=== PATIENT | female | born 1940 | race Caucasian/White ===

== ENCOUNTER 2018-06-01 16:12 | Inpatient (IN) ==
--- NOTE | 2018-06-01 16:30 | Emergency Department Note ---
Entered by Melanie Ramirez acting as a scribe for Hernan Moreira MD ED Provider Note CHIEF COMPLAINT: Fall HISTORY OF PRESENT ILLNESS: The patient is a 77 year old female who present to the Emergency Room following a fall that occurred at 1515 today. The patient reports that she was ambulating without her walker when she suddenly slipped and fell. She states that she has since had pain in her right henry and ankle, rating it a 2/10 at rest and 10/10 with movement. She denies injuring any other body part including her head, neck and back. She also denies any episodes of nausea or vomiting. The patient denies taking any medications prior to arrival. She notes that she last broke her right ankle on March 26 of last year. She denies any recent sickness. Pt denies LOC, headache, visual changes, neck pain, chest pain, breathing difficulties, nausea, vomiting, abdominal pain, back pain, other extremity pain , numbness, weakness, open wounds, active bleeding, or other complaints. REVIEW OF SYSTEMS: See HPI for pertinent positives and negatives. A total of ten systems were reviewed and were otherwise negative. PMHx/PSHx: neuropathy, parathryroidectomy, lumbar discectomy, cholecystectomy, HTN. SOCIAL HISTORY: Patient lives at home. Former smoker. PHYSICAL EXAM: GENERAL: Awake, alert, mildly umcomfortable appearing, no distress HEAD: Normocephalic, atraumatic. No post sign. No raccoon eyes. EYES: Normal conjunctiva. PERRL. EARS: External ears normal. Right TM normal. Left TM normal. NOSE: Atraumatic OROPHARYNX: Lips, tongue, and mucosa unremarkable. No erythema or exudate. NECK: No tracheal deviation or JVD. No posterior midline tenderness. No step offs noted. RESPIRATORY: CTA bilaterally. Breath sounds equal. No wheezes. No rhonchi. Normal respiratory effort. CARDIAC: Normal rate, normal rhythm. No murmurs. No rubs. ABDOMEN: Inspection reveals no abnormalities. Soft, non distended. No tenderness to palpation. No hernias. BACK: No midline step offs or tenderness to palpation. Unremarkable. PELVIS: Stable to rock. SKIN: Normal. LYMPH: No adenopathy. MUSCULOSKELETAL: Upper and left lower extremities are atraumatic. No hip tenderness. Mild tenderness to proximal tibia. Mild deformity swelling and bruising of the lower henry down to the ankle. Mild tenderness of the medial malleolus. Good cap refill, mild diminished sensation but she states that that is chronic. NEURO: GCS 15. Normal sensorium. No sensory or motor deficits noted. EMERGENCY DEPARTMENT COURSE: 1613: Past medical records reviewed. The patient was evaluated in room C3, and a complete history and physical examination were performed. 1707: The patient and her family state that she is not steady on her feet to be splinted and discharged with a walker. 1830: I reviewed the patient's case with Dr. Mandujano - Orthopedics. He requests medicine to admit the patient. 183: I reviewed the patient's case with MATTHEW Espinal - [facility]. She will evaluate the patient for further management. MEDICAL DECISION MAKING: Triage Nursing notes reviewed. The patient's presentation and history were concerning for a fall and leg pain. Etiologies such as soft tissue injury, fracture, dislocation, neurovascular compromise, compartment syndrome, as well as others were entertained. The patient was evaluated. She had an obvious deformity of the right leg. I did place her back in the DAVEY splint. The patient initially declined analgesia. X-ray imaging was performed and shows a spiral fracture of the distal tibia as well as the distal fibula. These are closed fractures. The patient had unremarkable laboratory studies. Her other diagnostics were unremarkable as well. A formal short leg posterior Ortho-Glass splint was performed. Consultation was made with Dr. Mandujano of orthopedics. He agreed with the splinting and will see the patient tomorrow. He has for medicine to admit the patient. I did consult with the [facility] service. The patient was then complaining of pain and was given morphine and Zofran. She was frequently reassessed. Patient and family were updated. The patient was admitted for further management. PROCEDURE: SPLINTING: Indication: Fracture The injured extremity was identified. The patient was prepped and measured for the placement of a posterior short leg orthoglass splint. Splint applied in the standard fashion over a layer of webril and secured using an elastic bandage. Set into a position of function. Normal neurovascular status after placement verified. The patient tolerated the procedure well and the care of the splint was discussed with the patient/family. No complications. IMPRESSION: Closed fracture of the distal tibia and fibula. PLAN: Admitted The scribe's documentation has been prepared under my direction and personally reviewed by me in its entirety. I confirm that the note above accurately reflects all work, treatment, procedures, and medical decision making performed by me. Impression & Plan Fracture of distal end of right tibia, Closed fracture of distal end of right fibula Past Med/Surg History Social History Current Living Situation: Family Current Living Situation Comment: lives with grandson and granddaughter Other Information That Helps Us Care for You: No Feels Safe at Home: Yes Safety Concerns: Feels Safe At This Time Smoking Status: Former smoker Do You Dip or Chew Tobacco: No Hx Alcohol Use: No Hx Substance Use: No Beliefs That Will Affect Care: None Preferred Language: [place]ib[place]ian Communication Ability: Effective Stereoplotter Operator Required: No Results & Data Vital Signs Vital Signs - 24 hr 06/01/18 16:21 06/01/18 18:01 06/01/18 19:58 Temperature 36.7 C Temperature Source Oral Sepsis Recent Fever Within 48 Hours No Sepsis New/Unexplained Change in Mental Status No Sepsis Action Taken by Nursing No Action Required Pulse Rate 82 79 Pulse Rate [Finger] 82 Pulse Rate [Left Apical] 78 86 Pulse Rhythm Regular Pulse Rhythm [Finger] Pulse Rhythm [Left Apical] Regular Regular Pulse Strength [Finger] Pulse Strength [Left Apical] Normal Normal Respiratory Rate 20 18 18 Respiratory Effort / Characteristics Non-Labored Spontaneous Non-Labored Spontaneous Respiratory Depth Normal Normal Respiratory Pattern Regular Blood Pressure 164/83 H Blood Pressure [Left Arm] Blood Pressure [Right Arm] 164/83 H 155/95 H 144/86 H Blood Pressure Mean 110 Blood Pressure Mean [Left Arm] Blood Pressure Mean [Right Arm] 110 115 105 Blood Pressure Position [Left Arm] Blood Pressure Position [Right Arm] Lying Lying Pulse Oximetry 95 93 98 Oxygen Delivery Method Room Air Room Air Room Air Oxygen Flow Rate 06/01/18 20:00 06/01/18 21:13 06/01/18 21:15 Temperature Temperature Source Sepsis Recent Fever Within 48 Hours Sepsis New/Unexplained Change in Mental Status Sepsis Action Taken by Nursing Pulse Rate Pulse Rate [Finger] Pulse Rate [Left Apical] 82 85 Pulse Rhythm Pulse Rhythm [Finger] Pulse Rhythm [Left Apical] Regular Regular Pulse Strength [Finger] Pulse Strength [Left Apical] Normal Normal Respiratory Rate 22 18 Respiratory Effort / Characteristics Non-Labored Spontaneous Respiratory Depth Normal Normal Respiratory Pattern Regular Blood Pressure Blood Pressure [Left Arm] Blood Pressure [Right Arm] 124/63 Blood Pressure Mean Blood Pressure Mean [Left Arm] Blood Pressure Mean [Right Arm] 83 Blood Pressure Position [Left Arm] Blood Pressure Position [Right Arm] Lying Pulse Oximetry 95 95 Oxygen Delivery Method Room Air Nasal Cannula Nasal Cannula Oxygen Flow Rate 2 06/01/18 21:20 06/01/18 23:45 Temperature 37.5 C 36.8 C Temperature Source Oral Oral Sepsis Recent Fever Within 48 Hours Sepsis New/Unexplained Change in Mental Status Sepsis Action Taken by Nursing Pulse Rate Pulse Rate [Finger] 87 76 Pulse Rate [Left Apical] Pulse Rhythm Pulse Rhythm [Finger] Regular Pulse Rhythm [Left Apical] Pulse Strength [Finger] Normal Pulse Strength [Left Apical] Respiratory Rate 16 16 Respiratory Effort / Characteristics Non-Labored Spontaneous Respiratory Depth Normal Respiratory Pattern Regular Blood Pressure Blood Pressure [Left Arm] 131/64 Blood Pressure [Right Arm] 147/72 H Blood Pressure Mean Blood Pressure Mean [Left Arm] 86 Blood Pressure Mean [Right Arm] 97 Blood Pressure Position [Left Arm] Lying Blood Pressure Position [Right Arm] Lying Pulse Oximetry 96 95 Oxygen Delivery Method Nasal Cannula Room Air Oxygen Flow Rate 2 Home Medications Current Medication List: was personally reviewed by me Laboratory Data Attestation: I reviewed the patient's lab results. Result diagrams: 06/01/18 17:40 06/01/18 17:40 Lab Results 06/01/18 06/01/18 06/01/18 Range/Units 17:40 17:40 17:40 WBC 10.25 (4.8-10.8) K/uL RBC 4.39 (4.2-5.4) M/uL Hgb 13.7 (12.0-16.0) g/dL Hct 41.4 (37-47) % MCV 94.3 (80-100) fL MCH 31.2 (25-34) pg MCHC 33.1 (32-36) g/dL RDW Std Deviation 44.5 (36.4-46.3) fL RDW Coeff of Didi 12.8 (11.5-14.5) % Plt Count 221 (130-400) K/uL MPV 9.9 (7.4-10.4) fL Immature Gran % (Auto) 0.4 % Neut % (Auto) 69.4 % Lymph % (Auto) 22.5 % [place] % (Auto) 4.9 % Eos % (Auto) 2.5 % Baso % (Auto) 0.3 % Immature Gran # (Auto) 0.04 H (0.00-0.02) K/uL Neut # (Auto) 7.11 H (1.4-6.5) K/uL Lymph # (Auto) 2.31 (1.2-3.4) K/uL [place] # (Auto) 0.50 (0.11-0.59) K/uL Eos # (Auto) 0.26 (0-0.5) K/uL Baso # (Auto) 0.03 (0-0.2) K/uL PT 10.4 (9.0-12.0) Seconds INR 1.0 (0.9-1.1) APTT 23.4 (21.0-31.0) Seconds PTT Ratio 0.9 Sodium 140 (136-145) mmol/L Potassium 3.5 (3.5-5.1) mmol/L Chloride 102 (98-107) mmol/L Carbon Dioxide 32 (21-32) mmol/L Anion Gap 7.0 (3-11) BUN 32 H (7-18) mg/dl Creatinine 1.12 (0.6-1.2) mg/dl Est Cr Clr Drug Dosing 44.0 ml/min Est GFR ( Amer) 54.9 Est GFR (Non-Af Amer) 47.3 BUN/Creatinine Ratio 28.6 H (10-20) Glucose 105 H (70-99) mg/dl Calcium 9.2 (8.5-10.1) mg/dl Magnesium 1.9 (1.8-2.4) mg/dl Total Bilirubin 0.4 (0.2-1) mg/dl AST 27 (15-37) U/L ALT 24 (12-78) U/L Alkaline Phosphatase 71 (45-117) U/L Total Protein 7.6 (6.4-8.2) gm/dl Albumin 3.7 (3.4-5.0) gm/dl Globulin 3.9 (2.5-4.0) gm/dl Albumin/Globulin Ratio 1.0 (0.9-2) Administered Medications Calcium Carbonate (Os-Ten 500) 1,250 mg PO BID MARILY Stop: 07/01/18 21:35 Last Admin: 06/01/18 22:28 Dose: 1,250 mg Gabapentin (Neurontin) 600 mg PO QID MARILY Stop: 07/01/18 21:35 Last Admin: 06/01/18 22:28 Dose: 600 mg Lactated Ringer's (Lr) 1,000 mls @ 50 mls/hr IV .Q20H MARILY Stop: 07/02/18 00:00 Last Admin: 06/01/18 23:45 Dose: 50 mls/hr Oxycodone/Acetaminophen (Percocet 5mg/325mg) 1 tab PO Q4H PRN PRN Reason: Pain Stop: 06/15/18 21:35 Last Admin: 06/01/18 23:52 Dose: 1 tab Pantoprazole Sodium (Protonix) 40 mg PO BID MARILY Stop: 07/01/18 21:35 Last Admin: 06/01/18 22:28 Dose: 40 mg Simvastatin (Zocor) 40 mg PO PM MARILY Stop: 07/01/18 21:35 Last Admin: 06/01/18 22:28 Dose: 40 mg Discontinued Medications Sodium Chloride (Nss 1000ml) 1,000 mls @ 125 mls/hr IV .Q8H STA Stop: 06/02/18 01:14 Last Infusion: 06/01/18 22:04 Dose: 0 mls/hr Admin: 06/01/18 18:01 Dose: 125 mls/hr Morphine Sulfate (Morphine Sulfate) 4 mg IV NOW STA Stop: 06/01/18 20:18 Last Admin: 06/01/18 20:52 Dose: 4 mg Ondansetron HCl (Zofran) 4 mg IV NOW STA Stop: 06/01/18 20:18 Last Admin: 06/01/18 20:52 Dose: 4 mg Imaging Data Radiologist's Impression: Radiology results as stated below per my review and the radiologist's interpretation: RIGHT TIBIA AND FIBULA 2 VIEWS; RIGHT ANKLE 3 VIEWS CLINICAL HISTORY: Fall with right leg injury. FINDINGS: AP and crosstable lateral views of the right tibia and fibula with 3 additional views of the right ankle are obtained. No prior studies are available for comparison at the time of dictation. The skeletal structures are osteopenic. There is a nondistracted spiral fracture through the proximal fibular neck. There is also a spiral fracture of the distal fibula through the lateral malleolus. There is a complex spiral fracture through the distal tibial metadiaphysis. There is posterior distraction of the distal fragments by up to 7 mm, as well as lateral distraction of the distal fragments by up to 5 mm. Fracture does not appear to reach the articular surface. The ankle joint is in near-anatomic alignment. There is a tiny avulsion fracture seen along the inferior aspect of the medial malleolus. The knee joint is grossly maintained comminuted and arthritic change and chondrocalcinosis within the lateral compartment. The proximal tibia is preserved. There is an ankle joint effusion. Soft tissue edema is noted in the right lower extremity. Atherosclerotic calcification is observed in the regional arteries. A dorsal calcaneal enthesophyte is observed. IMPRESSION: 1. There is a comminuted and distracted spiral fracture of the distal tibial metadiaphysis as above. 2. There are fractures of the proximal fibular neck as well as the lateral malleolus. 3. There is a small avulsion fracture seen along the inferior aspect of the medial malleolus. Electronically signed by: Usama Jang M.D. 06/01/2018 4:45 PM ECG Data Attestation: I personally reviewed and interpreted this ECG as follows: Indication: other (fall) Rate (beats per minute): 74 Rhythm: normal sinus Findings: no PAC, no PVC, no ST depression and no ST elevation Blood Pressure Blood Pressure Findings: Elevated blood pressure Blood Pressure Disposition: further management by hospitalist Discharge Plan Visit Data *Final* Discharge Date/Time: 06/01/18 21:15 Chief Complaint: Fall Stated Complaint: FALL, R HENRY PAIN ED Provider: Hernan Moreira Discharge Problem: Fracture of distal end of right tibia, Closed fracture of distal end of right fibula Patient Disposition: Admitted As Inpatient Discharge Instructions Interventions: ED Discharge Assessment Last Done: 06/01/18 21:15 The scribe's documentation has been prepared under my direction and personally reviewed by me in its entirety. I confirm that the note above accurately reflects all work, treatment, procedures, and medical decision making performed by me.
--- NOTE | 2018-06-01 16:47 | XRay Report ---
RIGHT TIBIA AND FIBULA 2 VIEWS; RIGHT ANKLE 3 VIEWS CLINICAL HISTORY: Fall with right leg injury. FINDINGS: AP and crosstable lateral views of the right tibia and fibula with 3 additional views of th e right ankle are obtained. No prior studies are available for comparison at the time of dictation. T he skeletal structures are osteopenic. There is a nondistracted spiral fracture through the proximal fibular neck. There is also a spiral fracture of the distal fibula through the lateral malleolus. The re is a complex spiral fracture through the distal tibial metadiaphysis. There is posterior distracti on of the distal fragments by up to 7 mm, as well as lateral distraction of the distal fragments by u p to 5 mm. Fracture does not appear to reach the articular surface. The ankle joint is in near-anatom ic alignment. There is a tiny avulsion fracture seen along the inferior aspect of the medial malleolu s. The knee joint is grossly maintained comminuted and arthritic change and chondrocalcinosis within the lateral compartment. The proximal tibia is preserved. There is an ankle joint effusion. Soft tiss ue edema is noted in the right lower extremity. Atherosclerotic calcification is observed in the melody onal arteries. A dorsal calcaneal enthesophyte is observed. IMPRESSION: 1. There is a comminuted and distracted spiral fracture of the distal tibial metadiaphysis as above. 2. There are fractures of the proximal fibular neck as well as the lateral malleolus. 3. There is a small avulsion fracture seen along the inferior aspect of the medial malleolus. Electronically signed by: Usama Jang M.D. 06/01/2018 4:45 PM
[2018-06-01] MEDS ORDERED: SODIUM CHLORIDE 0.9% 1000ML 1,000 ML IV STA (17:15)
[2018-06-01 17:59] LABS: Basophils # (auto) 0.03 K/uL (0-0.2); Basophils % (auto) 0.3 %; Eosinophils # (auto) 0.26 K/uL (0-0.5); Eosinophils % (auto) 2.5 %; Hematocrit (blood only) 41.4 % (37-47); Hemoglobin 13.7 g/dL (12.0-16.0); Immature Granulocytes # (auto) 0.04 K/uL (0.00-0.02); Immature Granulocytes % (auto) 0.4 %; Lymphocytes # (auto) 2.31 K/uL (1.2-3.4); Lymphocytes % (auto) 22.5 %; Mean Corpuscular Hgb Conc 33.1 g/dL (32-36); Mean Corpuscular Volume 94.3 fL (80-100); Mean Platelet Volume 9.9 fL (7.4-10.4); Monocytes % (auto) 4.9 %; Neutrophils # (auto) 7.11 K/uL (1.4-6.5); Neutrophils % (auto) 69.4 %; Platelet Count 221 K/uL (130-400); RDW Coefficient of Variation 12.8 % (11.5-14.5); RDW Standard Deviation 44.5 fL (36.4-46.3); Red Blood Count 4.39 M/uL (4.2-5.4); White Blood Count 10.25 K/uL (4.8-10.8)
[2018-06-01 18:11] LABS: Partial Thromboplastin Ratio 0.9; Partial Thromboplastin Time 23.4 Seconds (21.0-31.0); Prothrombin Time 10.4 Seconds (9.0-12.0)
[2018-06-01 18:38] LABS: Albumin Level 3.7 gm/dl (3.4-5.0); BUN Creatinine Ratio 28.6 (10-20); Calcium 9.2 mg/dl (8.5-10.1); Est GFR (African American) 54.9; Est GFR (Non-African American) 47.3; Potassium 3.5 mmol/L (3.5-5.1)
[2018-06-01 18:41] LABS: Bilirubin,Total 0.4 mg/dl (0.2-1); Globulin 3.9 gm/dl (2.5-4.0); Total Protein 7.6 gm/dl (6.4-8.2)
[2018-06-01 19:45] LABS: Magnesium 1.9 mg/dl (1.8-2.4)
[2018-06-01] MEDS ORDERED: MoRPHine SULFATE 4 MG/ML 1 ML CARP\\VIAL IV STA (20:17)
[2018-06-01] MEDS ORDERED: ONDANSETRON INJ 2 MG/ML 2 ML VIAL IV STA (20:17)
--- NOTE | 2018-06-01 20:33 | History & Physical Report ---
Date of Service June 01, 2018 Assessment & Plan (1) Fracture of distal end of right tibia: hx R distal fibula/malleolar fracture from 03/2018 Ambulatory dysfunction hx PAD/LE neuropathy as per records hypertension, stable hyperparathyroidism status post parathyroidectomy past tobacco abuse [facility] Orthopedics consult RE right tibial fracture (ER provider already in touch with Dr. Mandujano; possible surgery in a.m as per conversation.) No medical contraindication to contemplated Orthopedic procedure. DVT prophylaxis. Recommend pharmacologic Lovenox 30 mg SQ daily once bleeding risk is deemed to be minimal and negligible pending Orthopedics eval. SCDs contraindicated with history of LE PAD. Full code History of Present Illness Chief Complaint: Fall, right leg pain Primary Care Provider: Hernan Fernández History obtained from patient, family, and records. Medical history significant for hypertension, hyperlipidemia, PAD, neuropathy, hyperparathyroidism status post parathyroidectomy, GERD, past tobacco abuse. 2 months ago, patient sustained right ankle injury after a fall. Outpatient x- rays showed Green C fibular fracture. Fracture boot recommended by [facility] Orthopedics/Sports Medicine. Patient scheduled for follow-up x-ray this month. Patient ambulated without her walker in the afternoon causing her to slip and fall down. Subsequent pain noted on the right henry/ankle. Deformity noted. 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 Functionality : Usual shortness of breath on exertion on descending a flight of stairs Allergies Allergy/AdvReac Type Severity Reaction Status Date / Time No Known Allergies Allergy Verified 05/11/18 11:20 Home Medications Home Medications Medication Instructions Recorded Confirmed Type aspirin [Aspirin Low Dose] 81 mg PO QAM 05/03/18 06/01/18 History calcium carbonate 500 mg PO BID 05/03/18 06/01/18 History gabapentin 600 mg PO QID 05/03/18 06/01/18 History losartan 100 mg PO QAM 05/03/18 06/01/18 History magnesium oxide 250 mg PO QAM 05/03/18 06/01/18 History multivitamin 1 tab PO QAM 05/03/18 06/01/18 History omeprazole 20 mg PO BID 05/03/18 06/01/18 History simvastatin 40 mg PO PM 05/03/18 06/01/18 History baclofen 10 mg PO TID PRN 06/01/18 06/01/18 History calcitriol [Rocaltrol] 1 mcg PO QAM 06/01/18 06/01/18 History dorzolamide-timolol [Cosopt] 0 drp OPHTHALMIC (EYE) UD 06/01/18 06/01/18 History duloxetine [Cymbalta] 60 mg PO DAILY 06/01/18 06/01/18 History ibuprofen 400 mg PO QID PRN 06/01/18 06/01/18 History indapamide 2.5 mg PO DAILY 06/01/18 06/01/18 History latanoprost [Xalatan] 0 drp OPHTHALMIC (EYE) UD 06/01/18 06/01/18 History Past Med/Surg History Social History marital status: / Current Living Situation: Family Current Living Situation Comment: lives with grandson and granddaughter Other Information That Helps Us Care for You: No Feels Safe at Home: Yes Safety Concerns: Feels Safe At This Time Smoking Status: Former smoker Do You Dip or Chew Tobacco: No Hx Alcohol Use: No Hx Substance Use: No Beliefs That Will Affect Care: None Communication Ability: Effective Review of Systems As per HPI, all 10 systems reviewed, all other ROS negative Physical Exam 2 Vital Signs (Past 24 Hours): Last Vital Signs Temp 36.7 C 06/01/18 16:21 Pulse 86 06/01/18 19:58 Resp 18 06/01/18 19:58 BP 144/86 H 06/01/18 19:58 Pulse Ox 98 06/01/18 19:58 Physical Exam: GENERAL: Comfortable, obese, no respiratory distress SKIN: Normal color, warm HEENT: Bespectacled, pink palpebral conjunctivae, no ptosis, dry buccal mucosa NECK : Supple, short, no tenderness CHEST : CTA, no tenderness HEART : RRR, no obvious murmurs ABDOMEN: Some distention, nontender EXTREMITIES : RLE bandage/immobilizer, no other conspicuous deformities noted NEUROLOGIC : Coherent, no facial asymmetry, no other gross focality Results & Data Laboratory Results Laboratory Results WBC 10.25 K/uL (4.8-10.8) 06/01/18 17:40 RBC 4.39 M/uL (4.2-5.4) 06/01/18 17:40 Hgb 13.7 g/dL (12.0-16.0) 06/01/18 17:40 Hct 41.4 % (37-47) 06/01/18 17:40 MCV 94.3 fL (80-100) 06/01/18 17:40 MCH 31.2 pg (25-34) 06/01/18 17:40 MCHC 33.1 g/dL (32-36) 06/01/18 17:40 RDW Std Deviation 44.5 fL (36.4-46.3) 06/01/18 17:40 RDW Coeff of Didi 12.8 % (11.5-14.5) 06/01/18 17:40 Plt Count 221 K/uL (130-400) 06/01/18 17:40 MPV 9.9 fL (7.4-10.4) 06/01/18 17:40 Immature Gran % (Auto) 0.4 % 06/01/18 17:40 Neut % (Auto) 69.4 % 06/01/18 17:40 Lymph % (Auto) 22.5 % 06/01/18 17:40 [place] % (Auto) 4.9 % 06/01/18 17:40 Eos % (Auto) 2.5 % 06/01/18 17:40 Baso % (Auto) 0.3 % 06/01/18 17:40 Immature Gran # (Auto) 0.04 K/uL (0.00-0.02) H 06/01/18 17:40 Neut # (Auto) 7.11 K/uL (1.4-6.5) H 06/01/18 17:40 Lymph # (Auto) 2.31 K/uL (1.2-3.4) 06/01/18 17:40 [place] # (Auto) 0.50 K/uL (0.11-0.59) 06/01/18 17:40 Eos # (Auto) 0.26 K/uL (0-0.5) 06/01/18 17:40 Baso # (Auto) 0.03 K/uL (0-0.2) 06/01/18 17:40 PT 10.4 Seconds (9.0-12.0) 06/01/18 17:40 INR 1.0 (0.9-1.1) 06/01/18 17:40 APTT 23.4 Seconds (21.0-31.0) 06/01/18 17:40 PTT Ratio 0.9 06/01/18 17:40 Sodium 140 mmol/L (136-145) 06/01/18 17:40 Potassium 3.5 mmol/L (3.5-5.1) 06/01/18 17:40 Chloride 102 mmol/L (98-107) 06/01/18 17:40 Carbon Dioxide 32 mmol/L (21-32) 06/01/18 17:40 Anion Gap 7.0 (3-11) 06/01/18 17:40 BUN 32 mg/dl (7-18) H 06/01/18 17:40 Creatinine 1.12 mg/dl (0.6-1.2) 06/01/18 17:40 Est Cr Clr Drug Dosing 44.0 ml/min 06/01/18 17:40 Est GFR ( Amer) 54.9 06/01/18 17:40 Est GFR (Non-Af Amer) 47.3 06/01/18 17:40 BUN/Creatinine Ratio 28.6 (10-20) H 06/01/18 17:40 Glucose 105 mg/dl (70-99) H 06/01/18 17:40 Calcium 9.2 mg/dl (8.5-10.1) 06/01/18 17:40 Magnesium 1.9 mg/dl (1.8-2.4) 06/01/18 17:40 Total Bilirubin 0.4 mg/dl (0.2-1) 06/01/18 17:40 AST 27 U/L (15-37) 06/01/18 17:40 ALT 24 U/L (12-78) 06/01/18 17:40 Alkaline Phosphatase 71 U/L (45-117) 06/01/18 17:40 Total Protein 7.6 gm/dl (6.4-8.2) 06/01/18 17:40 Albumin 3.7 gm/dl (3.4-5.0) 06/01/18 17:40 Globulin 3.9 gm/dl (2.5-4.0) 06/01/18 17:40 Albumin/Globulin Ratio 1.0 (0.9-2) 06/01/18 17:40 Diagnostic Findings Chest x-ray as per my interpretation no acute pathology EKG as per my interpretation : Rate 75, NSR, low voltage _ (1) Fracture of distal end of right tibia Encounter type: initial encounter Fracture alignment: Fracture healing: Fracture morphology: unspecified fracture morphology Fracture type: closed Open fracture type: Qualified Code(s): S82.301A - Unspecified fracture of lower end of right tibia, initial encounter for closed fracture
[2018-06-01] MEDS ORDERED: ACETAMINOPHEN 325 MG TAB PO PRN (21:36)
[2018-06-01] MEDS ORDERED: BACLOFEN 10 MG TAB PO PRN (21:36)
[2018-06-01] MEDS ORDERED: PROCHLORPERAZINE 5 MG in SYRINGE 4 ML IV PRN (21:36)
[2018-06-01] MEDS: PANTOprazole 40 MG TAB PO SCH (22:28)
[2018-06-01] MEDS: SIMVASTATIN 40 MG TAB PO SCH (22:28)
[2018-06-01] MEDS: GABAPENTIN 300 MG CAP PO SCH (22:28)
[2018-06-01] MEDS: CALCIUM CARBONATE 1250MG TAB PO SCH (22:28)
[2018-06-01] MEDS: LACTATED RINGER'S 1,000 ML IV SCH (23:45)
[2018-06-01] MEDS: OXYCODONE/ACETAMINOPHEN 5mg/325mg TAB PO PRN (23:52)
[2018-06-02] MEDS: OXYCODONE/ACETAMINOPHEN 5mg/325mg TAB PO PRN ×3 (06:27→16:15)
--- NOTE | 2018-06-02 07:22 | XRay Report ---
XR chest 1V portable HISTORY: 77 years-old Female preop, hx tobacco abuse preoperative exam. No acute chest complaints COMPARISON: Chest radiograph 08/15/2009 TECHNIQUE: Portable AP view of the chest FINDINGS: Cardiomediastinal and hilar silhouettes are within normal limits. Calcification the thoracic aortic a rch. Unchanged mild left hemidiaphragmatic elevation. No pneumothorax, large pleural effusion or over t pulmonary edema. Subsegmental left basilar opacities suggest atelectasis or scarring. Chronic appea ring bilateral anterior rib fractures. Degenerative changes of the shoulders and spine. IMPRESSION: No acute process. The above report was generated using voice recognition software. It may contain grammatical, syntax o r spelling errors. Electronically signed by: Brandon Fraire M.D. 06/02/2018 7:21 AM
[2018-06-02] MEDS: PANTOprazole 40 MG TAB PO SCH ×2 (08:32→20:08)
[2018-06-02] MEDS: LOSARTAN POTASSIUM 50 MG TAB PO SCH (08:32)
[2018-06-02] MEDS: MULTIVITAMIN TAB PO SCH (08:32)
[2018-06-02] MEDS: CALCIUM CARBONATE 1250MG TAB PO SCH ×2 (08:32→20:08)
[2018-06-02] MEDS: GABAPENTIN 300 MG CAP PO SCH ×4 (08:32→20:08)
[2018-06-02] MEDS: CALCITRIOL 0.25 MCG CAPSULE PO SCH (08:32)
[2018-06-02] MEDS: ASPIRIN 81 MG ECTAB PO SCH (08:32)
[2018-06-02] MEDS: DULOXETINE HCL 60 MG CAP PO SCH (08:32)
--- NOTE | 2018-06-02 15:37 | Hospitalist Progress Note ---
Date of Service June 02, 2018 Assessment & Plan (1) Fracture of distal end of right tibia: Secondary to mechanical fall History of R distal fibula/malleolar fracture from 03/2018 Appreciate orthopedic input and recommendation Plan for conservative approach PT and OT have been requested Ambulatory dysfunction hx PAD/LE neuropathy as per records Likely to need rehab Hypertension, stable Continue current medications Hyperparathyroidism status post pParathyroidectomy No acute left abnormal past tobacco abuse DVT prophylaxis. Recommend pharmacologic Lovenox 30 mg SQ daily once bleeding risk is deemed to be minimal and negligible pending Orthopedics eval. SCDs contraindicated with history of LE PAD. Full code Subjective Medical history significant for hypertension, hyperlipidemia, PAD, neuropathy, hyperparathyroidism status post parathyroidectomy, GERD, past tobacco abuse. She was admitted with mechanical fall and fracture of the right fibula. 06/02 The patient was seen and examined in medical floor She complains of pain in the right leg Denies any other symptoms She did not have surgery as per Ortho We will get PT OT evaluation Physical Exam 2 Vital Signs (Past 24 Hours): Last Vital Signs Temp 36.8 C 06/02/18 07:32 Pulse 90 06/02/18 08:27 Resp 19 06/02/18 07:32 BP 105/62 06/02/18 08:27 Pulse Ox 97 06/02/18 07:32 Physical Exam: Short CBC 06/01/18 Range/Units 17:40 WBC 10.25 (4.8-10.8) K/uL Hgb 13.7 (12.0-16.0) g/dL Hct 41.4 (37-47) % Plt Count 221 (130-400) K/uL BMP 06/01/18 17:40 Sodium 140 Potassium 3.5 Chloride 102 Carbon Dioxide 32 BUN 32 H Creatinine 1.12 Glucose 105 H Calcium 9.2 Liver Function 06/01/18 Range/Units 17:40 Total Bilirubin 0.4 (0.2-1) mg/dl AST 27 (15-37) U/L ALT 24 (12-78) U/L Alkaline Phosphata se 71 (45-117) U/L Albumin 3.7 (3.4-5.0) gm/dl Constitutional: WD/WN, vitals as above Eyes: PERRL, conjunctivae normal, anicteric sclerae ENMT: external ear and nose normal, oropharynx normal Neck: trachea midline, no thyromegaly Respiratory: normal respiratory effort, lungs clear to auscultation Cardiovascular: Rate/Rhythm: regular rate and regular rhythm Heart Sounds: normal S1 and normal S2 Gastrointestinal (Abdomen): Inspection/Auscultation: abdomen normal to inspection and normal bowel sounds Percussion/Palpation: abdomen soft Musculoskeletal: Ankle: + ankle abnormal to inspection (Left lower leg is bandaged) Neurologic: Alert, awake and oriented x3 Results & Data Laboratory Results Short CBC 06/01/18 Range/Units 17:40 WBC 10.25 (4.8-10.8) K/uL Hgb 13.7 (12.0-16.0) g/dL Hct 41.4 (37-47) % Plt Count 221 (130-400) K/uL BMP 06/01/18 17:40 Sodium 140 Potassium 3.5 Chloride 102 Carbon Dioxide 32 BUN 32 H Creatinine 1.12 Glucose 105 H Calcium 9.2 Liver Function 06/01/18 Range/Units 17:40 Total Bilirubin 0.4 (0.2-1) mg/dl AST 27 (15-37) U/L ALT 24 (12-78) U/L Alkaline Phosphatase 71 (45-117) U/L Albumin 3.7 (3.4-5.0) gm/dl Medications Administered Current Inpatient Medications Acetaminophen (Tylenol) 650 mg PO Q4H PRN PRN Reason: pain/fever Stop: 07/01/18 21:35 Aspirin (Ecotrin Ectab) 81 mg PO QAM [facility] Stop: 07/02/18 08:59 Last Admin: 06/02/18 08:32 Dose: 81 mg Baclofen (Lioresal) 10 mg PO TID PRN PRN Reason: Muscle Spasm Stop: 07/01/18 21:35 Calcitriol (Racaltrol) 1 mcg PO QAM [facility] Stop: 07/02/18 08:59 Last Admin: 06/02/18 08:32 Dose: 1 mcg Calcium Carbonate (Os-Ten 500) 1,250 mg PO BID [facility] Stop: 07/01/18 21:35 Last Admin: 06/02/18 08:32 Dose: 1,250 mg Duloxetine HCl (Cymbalta) 60 mg PO DAILY [facility] Stop: 07/02/18 08:59 Last Admin: 06/02/18 08:32 Dose: 60 mg Gabapentin (Neurontin) 600 mg PO QID [facility] Stop: 07/01/18 21:35 Last Admin: 06/02/18 13:10 Dose: 600 mg Lactated Ringer's (Lr) 1,000 mls @ 50 mls/hr IV .Q20H [facility] Stop: 07/02/18 00:00 Last Admin: 06/01/18 23:45 Dose: 50 mls/hr Prochlorperazine 5 mg/ Syringe 5 mls @ 5 mls/min IV Q6H PRN PRN Reason: Nausea And Vomiting Stop: 07/01/18 21:35 Losartan Potassium (Cozaar) 100 mg PO QAM [facility] Stop: 07/02/18 08:59 Last Admin: 06/02/18 08:32 Dose: 100 mg Morphine Sulfate (Morphine Sulfate) 4 mg IV Q4H PRN PRN Reason: Pain Stop: 06/15/18 21:35 Multivitamins (Multivitamin Tab) 1 tab PO QAM [facility] Stop: 07/02/18 08:59 Last Admin: 06/02/18 08:32 Dose: 1 tab Oxycodone/Acetaminophen (Percocet 5mg/325mg) 1 tab PO Q4H PRN PRN Reason: Pain Stop: 06/15/18 21:35 Last Admin: 06/02/18 10:48 Dose: 1 tab Pantoprazole Sodium (Protonix) 40 mg PO BID [facility] Stop: 07/01/18 21:35 Last Admin: 06/02/18 08:32 Dose: 40 mg Simvastatin (Zocor) 40 mg PO PM [facility] Stop: 07/01/18 21:35 Last Admin: 06/01/18 22:28 Dose: 40 mg _ (1) Fracture of distal end of right tibia Encounter type: initial encounter Fracture alignment: Fracture healing: Fracture morphology: unspecified fracture morphology Fracture type: closed Open fracture type: Qualified Code(s): S82.301A - Unspecified fracture of lower end of right tibia, initial encounter for closed fracture
--- NOTE | 2018-06-02 16:40 | Consultation Report ---
DATE OF CONSULTATION: 06/02/2018 ORTHOPEDIC CONSULTATION CHIEF COMPLAINT: Right leg injury. HISTORY OF PRESENT ILLNESS: The patient is a 77-year-old female who is known to me from treating her for a previous fracture in the past. She has a history of a relatively recent ankle fracture treated apparently at [facility] about 2 months ago. She says she just got out of the boot about 2 weeks or so ago. Yesterday, she was in her house walking without any boot or support and fell and broke her henry. Does not exactly sure how this happened or what happened. No other injuries. She was brought to the Emergency Room. X-rays revealed a distal tibia fracture. She has been admitted to medicine service and we have been consulted. She denies any other injuries. No head injury, no loss of consciousness, no neck pain. PAST MEDICAL HISTORY: Includes: 1. Hypertension. 2. Elevated cholesterol. 3. Unspecified neuropathy. 4. Hyperparathyroidism. 5. Gastroesophageal reflux disease. The remainder of the past medical history as per the admission H and P. OBJECTIVE: VITAL SIGNS: Temperature 36.8. Vital signs stable. PHYSICAL EXAMINATION: GENERAL: Reveals a pleasant elderly female. She is lying in bed, looks pretty comfortable. She complains only pain in the right leg. EXTREMITIES: Examination of the right leg reveals a short leg posterior splint to be in place. With the splint removed, she does have a well-aligned the leg. She does have bruising and some moderate swelling around the distal tibia area. She can flex and extend her toes appropriately. Compartments are soft. She is neurologically intact. X-RAYS: X-rays of the right tibia and fibula and ankle were reviewed. It shows a spiral distal tibia fracture with a proximal fibula fracture. She has got old healing Green B ankle fracture. There is minimal displacement of the tibia fracture. It is just a slight rotational injury. The ankle mortise is well maintained. ASSESSMENT: A 77-year-old female with multiple medical comorbidities with a minimally displaced spiral distal tibia fracture with a proximal fibula fracture about 2 months out from a previous Green B ankle fracture. PLAN: We discussed treatment. Certainly, at this time, they can be treated nonoperatively. We are going to put her in a short-leg cast. She can weight bear as tolerated. She will need to be in this cast for probably 2-3 months. The first 2 weeks is going to be pretty painful weightbearing, but she can weightbear as tolerated. We will get her a cast shoe. We need to see her back in 2-3 weeks for repeat x-ray. We will write her for therapy. Once again, she can weight bear as tolerated in the cast. Any orthopedic questions can be directed at [phone]. She should obviously have appropriate DVT prophylaxis and we would recommend TEDs, SCDs, and aspirin twice a day.
[2018-06-02] MEDS: MoRPHine SULFATE 4 MG/ML 1 ML CARP\\VIAL IV PRN (17:35)
[2018-06-02] MEDS: LACTATED RINGER'S 1,000 ML IV SCH (18:10)
[2018-06-02] MEDS: SIMVASTATIN 40 MG TAB PO SCH (20:08)
[2018-06-03] MEDS: MoRPHine SULFATE 4 MG/ML 1 ML CARP\\VIAL IV PRN ×2 (00:45→07:24)
--- NOTE | 2018-06-03 08:18 | Progress Note ---
DATE: 06/03/2018 SUBJECTIVE: A 77-year-old white female admitted with a right distal tib-fib fracture. We put her in a cast yesterday. She is doing okay. Some pain, but seems manageable. No new complaints. OBJECTIVE: VITAL SIGNS: Temperature 37.3. Vital signs stable. GENERAL: Examination of the right leg reveals the short leg cast in good position. Leg looks well aligned. She can dorsiflex and plantarflex her foot appropriately. She is neurologically intact. ASSESSMENT: A 77-year-old white female with a right distal tib-fib fracture. She is in a cast. She is doing reasonably well. It is going to be pretty sore for the first couple weeks. PLAN: 1. DVT prophylaxis including thigh-high TEDs, SCDs, and would recommend baby aspirin twice a day. 2. PT/OT. She can weightbear on this right leg. She needs a cast shoe. It certainly is going to be difficult for her for the first 2 weeks just related to pain. 3. Medical management as per the medicine service. 4. Disposition: She is orthopedically acceptable for discharge any time. She does need a cast shoe for the bottom of this foot. I need to see her back in about 2 weeks. Any orthopedic questions can be directed at [phone].
[2018-06-03] MEDS: LOSARTAN POTASSIUM 50 MG TAB PO SCH (09:04)
[2018-06-03] MEDS: PANTOprazole 40 MG TAB PO SCH ×2 (09:05→20:18)
[2018-06-03] MEDS: MULTIVITAMIN TAB PO SCH (09:05)
[2018-06-03] MEDS: GABAPENTIN 300 MG CAP PO SCH ×4 (09:08→20:17)
[2018-06-03] MEDS: ASPIRIN 81 MG ECTAB PO SCH (09:08)
[2018-06-03] MEDS: CALCIUM CARBONATE 1250MG TAB PO SCH ×2 (09:08→20:18)
[2018-06-03] MEDS: DULOXETINE HCL 60 MG CAP PO SCH (09:08)
[2018-06-03] MEDS: CALCITRIOL 0.25 MCG CAPSULE PO SCH (09:09)
--- NOTE | 2018-06-03 10:07 | XRay Report ---
XR chest 1V portable HISTORY: Cough. R/O Pneumonia COMPARISON: Chest 06/02/2018. Chest 08/15/2009. FINDINGS: No pneumothorax. No pleural effusions. The heart is normal in size. Mild elevation of the l eft hemidiaphragm. Left basilar densities are noted. Right lung is clear. IMPRESSION: Left basilar linear densities with mild elevation of the left hemidiaphragm. This favors atelectasis. However, a pneumonia could also have a similar appearance. Electronically signed by: Dakota Cueva M.D. 06/03/2018 10:05 AM
[2018-06-03 10:19] LABS: Basophils # (auto) 0.02 K/uL (0-0.2); Basophils % (auto) 0.2 %; Eosinophils # (auto) 0.09 K/uL (0-0.5); Eosinophils % (auto) 0.9 %; Hematocrit (blood only) 35.2 % (37-47); Hemoglobin 11.3 g/dL (12.0-16.0); Immature Granulocytes # (auto) 0.03 K/uL (0.00-0.02); Immature Granulocytes % (auto) 0.3 %; Lymphocytes # (auto) 2.26 K/uL (1.2-3.4); Lymphocytes % (auto) 22.9 %; Mean Corpuscular Hgb Conc 32.1 g/dL (32-36); Mean Corpuscular Volume 95.9 fL (80-100); Mean Platelet Volume 9.7 fL (7.4-10.4); Monocytes # (auto) 0.65 K/uL (0.11-0.59); Monocytes % (auto) 6.6 %; Neutrophils % (auto) 69.1 %; Platelet Count 204 K/uL (130-400); RDW Coefficient of Variation 13.1 % (11.5-14.5); RDW Standard Deviation 45.4 fL (36.4-46.3); Red Blood Count 3.67 M/uL (4.2-5.4); White Blood Count 9.85 K/uL (4.8-10.8)
[2018-06-03 10:46] LABS: BUN Creatinine Ratio 30.7 (10-20); Calcium 8.6 mg/dl (8.5-10.1); Creatinine Clr Calc Pharmacy 49.9 ml/min; Est GFR (African American) 62.9; Est GFR (Non-African American) 54.3; Potassium 3.5 mmol/L (3.5-5.1)
[2018-06-03] MEDS: OXYCODONE/ACETAMINOPHEN 5mg/325mg TAB PO PRN ×2 (12:40→20:17)
--- NOTE | 2018-06-03 17:08 | Hospitalist Progress Note ---
Date of Service June 03, 2018 Assessment & Plan (1) Fracture of distal end of right tibia: (1) Fracture of distal end of right tibia: Secondary to mechanical fall History of R distal fibula/malleolar fracture from 03/2018 Appreciate orthopedic input and recommendation Plan for conservative approach PT and OT have been requested 06/03 Noted to have tachycardia by the nursing staff Also noted to have fever Chest x-ray, CBC, and EKG were unremarkable We will repeat CBC in the morning Ambulatory dysfunction hx PAD/LE neuropathy as per records Likely to need rehab Hypertension, stable Continue current medications Hyperparathyroidism status post pParathyroidectomy No acute left abnormal past tobacco abuse DVT prophylaxis.::DVT prophylaxis including thigh-high TEDs, SCDs, and would recommend baby aspirin twice a day as per Ortho Transfer to rehab tomorrow Full code Subjective Medical history significant for hypertension, hyperlipidemia, PAD, neuropathy, hyperparathyroidism status post parathyroidectomy, GERD, past tobacco abuse. She was admitted with mechanical fall and fracture of the right fibula. 06/02 The patient was seen and examined in medical floor She complains of pain in the right leg Denies any other symptoms She did not have surgery as per Ortho We will get PT OT evaluation 06/03 The patient was seen and examined the medical floor Has not been feeling well Denies any specific symptoms Physical Exam 2 Vital Signs (Past 24 Hours): Last Vital Signs Temp 36.4 C L 06/03/18 15:20 Pulse 89 06/03/18 15:20 Resp 18 06/03/18 15:20 BP 105/66 06/03/18 15:20 Pulse Ox 90 06/03/18 15:20 Constitutional: WD/WN, vitals as above Eyes: PERRL, conjunctivae normal, anicteric sclerae ENMT: external ear and nose normal, oropharynx normal Neck: trachea midline, no thyromegaly Respiratory: normal respiratory effort, lungs clear to auscultation Cardiovascular: Rate/Rhythm: regular rate and regular rhythm Heart Sounds: normal S1 and normal S2 Gastrointestinal (Abdomen): Inspection/Auscultation: abdomen normal to inspection and normal bowel sounds Percussion/Palpation: abdomen soft Musculoskeletal: Ankle: + ankle abnormal to inspection (Left lower leg is bandaged) Neurologic: Alert, awake and oriented x3 Psychiatric: A+Ox3, euthymic affect Results & Data Laboratory Results Short CBC 06/03/18 Range/Units 10:02 WBC 9.85 (4.8-10.8) K/uL Hgb 11.3 L (12.0-16.0) g/dL Hct 35.2 L (37-47) % Plt Count 204 (130-400) K/uL BMP 06/03/18 10:02 Sodium 138 Potassium 3.5 Chloride 98 Carbon Dioxide 33 H BUN 31 H Creatinine 1.00 Glucose 135 H Calcium 8.6 Medications Administered Current Inpatient Medications Acetaminophen (Tylenol) 650 mg PO Q4H PRN PRN Reason: pain/fever Stop: 07/01/18 21:35 [facility]irin ([facility]rin Ectab) [facility]: 07/02/18 08:59 Last Admin: 06/03/18 09:08 Dose: 81 mg Baclofen (Lioresal) 10 mg PO TID PRN PRN Reason: Muscle Spasm Stop: 07/01/18 21:35 Calcitriol (Racaltrol) [facility] Stop: 07/02/18 08:59 Last Admin: 06/03/18 09:09 Dose: 1 mcg Calcium Carbonate (Os-Ten 500) 1,250 mg PO BID [facility] Stop: 07/01/18 21:35 Last Admin: 06/03/18 09:08 Dose: 1,250 mg Duloxetine HCl (Cymbalta) 60 mg PO DAILY [facility] Stop: 07/02/18 08:59 Last Admin: 06/03/18 09:08 Dose: 60 mg Gabapentin (Neurontin) 600 mg PO QID [facility] Stop: 07/01/18 21:35 Last Admin: 06/03/18 17:04 Dose: 600 mg Prochlorperazine 5 mg/ Syringe 5 mls @ 5 mls/min IV Q6H PRN PRN Reason: Nausea And Vomiting Stop: 07/01/18 21:35 Losartan Potassium (Cozaar) 100 mg PO [facility] Stop: 07/02/18 08:59 Last Admin: 06/03/18 09:04 Dose: 100 mg Morphine Sulfate (Morphine Sulfate) 4 mg IV Q4H PRN PRN Reason: Pain Stop: 06/15/18 21:35 Last Admin: 06/03/18 07:24 Dose: 4 mg Multivitamins (Multivitamin Tab) 1 tab PO [facility] Stop: 07/02/18 08:59 Last Admin: 06/03/18 09:05 Dose: 1 tab Oxycodone/Acetaminophen (Percocet 5mg/325mg) 1 tab PO Q4H PRN PRN Reason: Pain Stop: 06/15/18 21:35 Last Admin: 06/03/18 12:40 Dose: 1 tab Pantoprazole Sodium (Protonix) 40 mg PO BID [facility] Stop: 07/01/18 21:35 Last Admin: 06/03/18 09:05 Dose: 40 mg Simvastatin (Zocor) 40 mg PO PM [facility] Stop: 07/01/18 21:35 Last Admin: 06/02/18 20:08 Dose: 40 mg _ (1) Fracture of distal end of right tibia Encounter type: initial encounter Fracture alignment: Fracture healing: Fracture morphology: unspecified fracture morphology Fracture type: closed Open fracture type: Qualified Code(s): S82.301A - Unspecified fracture of lower end of right tibia, initial encounter for closed fracture
[2018-06-03] MEDS: SIMVASTATIN 40 MG TAB PO SCH (20:18)
[2018-06-04 06:36] LABS: Basophils # (auto) 0.02 K/uL (0-0.2); Basophils % (auto) 0.2 %; Hematocrit (blood only) 32.9 % (37-47); Hemoglobin 10.7 g/dL (12.0-16.0); Immature Granulocytes # (auto) 0.04 K/uL (0.00-0.02); Immature Granulocytes % (auto) 0.4 %; Lymphocytes # (auto) 1.72 K/uL (1.2-3.4); Lymphocytes % (auto) 16.9 %; Mean Corpuscular Hgb Conc 32.5 g/dL (32-36); Mean Corpuscular Volume 94.8 fL (80-100); Mean Platelet Volume 9.5 fL (7.4-10.4); Monocytes # (auto) 0.74 K/uL (0.11-0.59); Monocytes % (auto) 7.3 %; Neutrophils # (auto) 7.57 K/uL (1.4-6.5); Neutrophils % (auto) 74.2 %; Platelet Count 161 K/uL (130-400); RDW Coefficient of Variation 12.8 % (11.5-14.5); Red Blood Count 3.47 M/uL (4.2-5.4); White Blood Count 10.19 K/uL (4.8-10.8)
--- NOTE | 2018-06-04 08:02 | Progress Note ---
DATE: 06/04/2018 SUBJECTIVE: A 77-year-old female admitted with a right distal tib-fib fracture. She seems to be doing a little bit better today. Pain is little bit better controlled. No new complaints. She just says she is needing to go the bathroom and needs some help. OBJECTIVE: VITAL SIGNS: Temperature 36.8. Vital signs stable. PHYSICAL EXAMINATION: Examination of the right lower extremity reveals the cast to be in place. Looks to be fitting well. She can dorsiflex and plantarflex her foot appropriately. She is neurologically intact. ASSESSMENT: A 77-year-old white female with a right distal tib-fib fracture. This is a stable fracture. She seems to be doing a bit better. PLAN: Will continue the short leg cast and she will probably need some degree of casting for 2-3 months. She can weightbear as tolerated. We ordered a cast boot for the bottom of her cast, but I do not see it in the room today. She needs to check back with us in the clinic in about 2 weeks. She is orthopedically stable and acceptable for discharge for any time medically stable. Any orthopedic questions can be directed to me at [phone]. We need to emphasize to keep all pressure off the heel to prevent heel ulcers.
[2018-06-04] MEDS: OXYCODONE/ACETAMINOPHEN 5mg/325mg TAB PO PRN (08:06)
[2018-06-04] MEDS: PANTOprazole 40 MG TAB PO SCH (08:54)
[2018-06-04] MEDS: DULOXETINE HCL 60 MG CAP PO SCH (08:55)
[2018-06-04] MEDS: ASPIRIN 81 MG ECTAB PO SCH (08:55)
[2018-06-04] MEDS: GABAPENTIN 300 MG CAP PO SCH ×2 (08:55→13:24)
[2018-06-04] MEDS: LOSARTAN POTASSIUM 50 MG TAB PO SCH (08:55)
[2018-06-04] MEDS: CALCIUM CARBONATE 1250MG TAB PO SCH (08:55)
[2018-06-04] MEDS: MULTIVITAMIN TAB PO SCH (08:55)
[2018-06-04] MEDS: CALCITRIOL 0.25 MCG CAPSULE PO SCH (08:56)
--- NOTE | 2018-06-04 13:19 | Hospitalist Progress Note ---
Date of Service June 04, 2018 Assessment & Plan (1) Fracture of distal end of right tibia: (1) Fracture of distal end of right tibia: Secondary to mechanical fall History of R distal fibula/malleolar fracture from 03/2018 Appreciate orthopedic input and recommendation Plan for conservative approach PT and OT have been requested Will be transferred to the [facility] this afternoon 06/03 Noted to have tachycardia by the nursing staff Also noted to have fever Chest x-ray, CBC, and EKG were unremarkable No more recurrence of symptoms White cell count remained normal Doubt any infection Ambulatory dysfunction hx PAD/LE neuropathy as per records Likely to need rehab-will be discharged this afternoon Hypertension, stable Continue current medications Hyperparathyroidism status post pParathyroidectomy No acute left abnormal past tobacco abuse DVT prophylaxis.::DVT prophylaxis including thigh-high TEDs, SCDs, and would recommend baby aspirin twice a day as per Ortho Transfer to rehab tomorrow Full code Subjective Medical history significant for hypertension, hyperlipidemia, PAD, neuropathy, hyperparathyroidism status post parathyroidectomy, GERD, past tobacco abuse. She was admitted with mechanical fall and fracture of the right fibula. 06/02 The patient was seen and examined in medical floor She complains of pain in the right leg Denies any other symptoms She did not have surgery as per Ortho We will get PT OT evaluation 06/03 The patient was seen and examined the medical floor Has not been feeling well Denies any specific symptoms 06/04 The patient was seen and examined in medical floor He did not have any more episode of tachycardia and no fever Except pain in the right foot denies any other symptoms White cell count remains stable Physical Exam 2 Vital Signs (Past 24 Hours): Last Vital Signs Temp 36.6 C 06/04/18 08:00 Pulse 92 H 06/04/18 08:00 Resp 18 06/04/18 08:00 BP 155/70 H 06/04/18 08:00 Pulse Ox 90 06/04/18 08:00 Physical Exam: Sitting on a chair out of bed without any distress Constitutional: WD/WN, vitals as above Eyes: PERRL, conjunctivae normal, anicteric sclerae ENMT: external ear and nose normal, oropharynx normal Neck: trachea midline, no thyromegaly Respiratory: normal respiratory effort, lungs clear to auscultation Cardiovascular: Rate/Rhythm: regular rate and regular rhythm Heart Sounds: normal S1 and normal S2 Gastrointestinal (Abdomen): Inspection/Auscultation: abdomen normal to inspection and normal bowel sounds Percussion/Palpation: abdomen soft Musculoskeletal: Ankle: + ankle abnormal to inspection (Left lower leg is bandaged) Psychiatric: A+Ox3, euthymic affect Results & Data Laboratory Results Short CBC 06/04/18 Range/Units 06:06 WBC 10.19 (4.8-10.8) K/uL Hgb 10.7 L (12.0-16.0) g/dL Hct 32.9 L (37-47) % Plt Count 161 (130-400) K/uL Medications Administered Current Inpatient Medications Acetaminophen (Tylenol) 650 mg PO Q4H PRN PRN Reason: pain/fever Stop: 07/01/18 21:35 Aspirin (Ecotrin Ectab) 81 mg PO QAM [facility] Stop: 07/02/18 08:59 Last Admin: 06/04/18 08:55 Dose: 81 mg Baclofen (Lioresal) 10 mg PO TID PRN PRN Reason: Muscle Spasm Stop: 07/01/18 21:35 Calcitriol (Racaltrol) 1 mcg PO QAM [facility] Stop: 07/02/18 08:59 Last Admin: 06/04/18 08:56 Dose: 1 mcg Calcium Carbonate (Os-Ten 500) 1,250 mg PO BID [facility] Stop: 07/01/18 21:35 Last Admin: 06/04/18 08:55 Dose: 1,250 mg Duloxetine HCl (Cymbalta) 60 mg PO DAILY [facility] Stop: 07/02/18 08:59 Last Admin: 06/04/18 08:55 Dose: 60 mg Gabapentin (Neurontin) 600 mg PO QID [facility] Stop: 07/01/18 21:35 Last Admin: 06/04/18 08:55 Dose: 600 mg Prochlorperazine 5 mg/ Syringe 5 mls @ 5 mls/min IV Q6H PRN PRN Reason: Nausea And Vomiting Stop: 07/01/18 21:35 Losartan Potassium (Cozaar) 100 mg PO QAM [facility] Stop: 07/02/18 08:59 Last Admin: 06/04/18 08:55 Dose: 100 mg Morphine Sulfate (Morphine Sulfate) 4 mg IV Q4H PRN PRN Reason: Pain Stop: 06/15/18 21:35 Last Admin: 06/03/18 07:24 Dose: 4 mg Multivitamins (Multivitamin Tab) 1 tab PO QAM [facility] Stop: 07/02/18 08:59 Last Admin: 06/04/18 08:55 Dose: 1 tab Oxycodone/Acetaminophen (Percocet 5mg/325mg) 1 tab PO Q4H PRN PRN Reason: Pain Stop: 06/15/18 21:35 Last Admin: 06/04/18 08:06 Dose: 1 tab Pantoprazole Sodium (Protonix) 40 mg PO BID [facility] Stop: 07/01/18 21:35 Last Admin: 06/04/18 08:54 Dose: 40 mg Simvastatin (Zocor) 40 mg PO PM [facility] Stop: 07/01/18 21:35 Last Admin: 06/03/18 20:18 Dose: 40 mg _ (1) Fracture of distal end of right tibia Encounter type: initial encounter Fracture alignment: Fracture healing: Fracture morphology: unspecified fracture morphology Fracture type: closed Open fracture type: Qualified Code(s): S82.301A - Unspecified fracture of lower end of right tibia, initial encounter for closed fracture
--- NOTE | 2018-06-05 08:18 | Discharge Summary ---
Date of Service June 05, 2018 Admission HPI Per Admitting Provider History obtained from patient, family, and records. Medical history significant for hypertension, hyperlipidemia, PAD, neuropathy, hyperparathyroidism status post parathyroidectomy, GERD, past tobacco abuse. 2 months ago, patient sustained right ankle injury after a fall. Outpatient x- rays showed Green C fibular fracture. Fracture boot recommended by [facility] [place] Orthopedics/Sports Medicine. Patient scheduled for follow-up x-ray this month. Patient ambulated without her walker in the afternoon causing her to slip and fall down. Subsequent pain noted on the right henry/ankle. Deformity noted. 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 Functionality : Usual shortness of breath on exertion on descending a flight of stairs Admission Exam Per Admitting Provider Vital Signs (Past 24 Hours): Last Vital Signs Temp 36.7 C 06/01/18 16:21 Pulse 86 06/01/18 19:58 Resp 18 06/01/18 19:58 BP 144/86 H 06/01/18 19:58 Pulse Ox 98 06/01/18 19:58 Physical Exam: GENERAL: Comfortable, obese, no respiratory distress SKIN: Normal color, warm HEENT: Bespectacled, pink palpebral conjunctivae, no ptosis, dry buccal mucosa NECK : Supple, short, no tenderness CHEST : CTA, no tenderness HEART : RRR, no obvious murmurs ABDOMEN: Some distention, nontender EXTREMITIES : RLE bandage/immobilizer, no other conspicuous deformities noted NEUROLOGIC : Coherent, no facial asymmetry, no other gross focality Principal Diagnosis Right Tibia/Fibula Fracture Discharge Exam Constitutional WD/WN, vitals as above Eyes PERRL, conjunctivae normal, anicteric sclerae ENMT external ear and nose normal, oropharynx normal Neck trachea midline, no thyromegaly Respiratory normal respiratory effort, lungs clear to auscultation Cardiovascular Rate/Rhythm: regular rate and regular rhythm Heart Sounds: normal S1 and normal S2 Gastrointestinal (Abdomen) Inspection/Auscultation: abdomen normal to inspection and normal bowel sounds Percussion/Palpation: abdomen soft Musculoskeletal Ankle: + ankle abnormal to inspection (Left lower leg is bandaged) Psychiatric A+Ox3, euthymic affect Discharge Data Allergies Allergy/AdvReac Type Severity Reaction Status Date / Time No Known Allergies Allergy Verified 05/11/18 11:20 Consultations 06/01/18 18:41 ED Decision to Admit Stat 06/01/18 21:36 Consult Orthopedic Surgery Routine Hospital Course (1) Fracture of distal end of right tibia: (1) Fracture of distal end of right tibia: Secondary to mechanical fall History of R distal fibula/malleolar fracture from 03/2018 Appreciate orthopedic input and recommendation Plan for conservative approach PT and OT have been requested Will be transferred to the [facility] this afternoon 06/03 Noted to have tachycardia by the nursing staff Also noted to have fever Chest x-ray, CBC, and EKG were unremarkable No more recurrence of symptoms White cell count remained normal Doubt any infection Ambulatory dysfunction hx PAD/LE neuropathy as per records Likely to need rehab-will be discharged this afternoon Hypertension, stable Continue current medications Hyperparathyroidism status post pParathyroidectomy No acute left abnormal past tobacco abuse DVT prophylaxis.::DVT prophylaxis including thigh-high TEDs, SCDs, and would recommend baby aspirin twice a day as per Ortho Transfer to rehab tomorrow Full code Total Time Total Time Spent Total Time Spent (In Minutes): 40 minutes Total Time Includes: Examination of the Patient, Discharge Planning, Medication Reconciliation and Communication With Other Providers Discharge Plan Discharge Items Patient Disposition: Transfer Snf Fac Reason For Visit: R TIBIA FX Discharge Diagnosis: Right Tibia/Fibula Fracture Condition: Fair Discharge Goals: Decrease discomfort, Improve disease control and Therapeutic intervention Activity: Per 'Additional Instructions' section Weightbearing: Right weightbearing Weightbearing Comment: May weightbear as tolerated - right leg Non-emergency contact: Primary Care Provider Call non-emergency contact if: you have any medication questions and your symptoms worsen Follow-up/Referrals: Randy Mandujano MD [Surgeon] - (Follow-up in Orthopedic clinic in 2-3 weeks Please make an appointment with your primary care physician in 1 week ) Diet: Heart Healthy and Low Sodium (2gm) Addtl Provider Instructions: Keep cast clean, dry, and in place. May weightbear as tolerated on right leg. Prescriptions: New oxycodone-acetaminophen [Percocet] 5-325 mg Tablet 1 tab PO Q4H PRN (Reason: pain) 5 Days Qty: 20 RF: 0 Continue latanoprost [Xalatan] 0.005 % drops ophthalmic (eye) UD RF: 0 indapamide 2.5 mg tablet 2.5 mg PO DAILY RF: 0 ibuprofen 200 mg Capsule 400 mg PO QID PRN (Reason: Pain) RF: 0 baclofen 10 mg Tablet 10 mg PO TID PRN (Reason: Muscle Pain) RF: 0 calcitriol [Rocaltrol] 0.5 mcg capsule 1 mcg PO QAM RF: 0 dorzolamide-timolol [Cosopt] 22.3-6.8 mg/mL drops ophthalmic (eye) UD RF: 0 duloxetine [Cymbalta] 60 mg capsule,delayed release(DR/EC) 60 mg PO DAILY RF: 0 losartan 100 mg Tablet 100 mg PO QAM RF: 0 calcium carbonate 500 mg calcium (1,250 mg) Tablet 500 mg PO BID RF: 0 gabapentin 300 mg Capsule 600 mg PO QID RF: 0 multivitamin Tablet 1 tab PO QAM RF: 0 simvastatin 40 mg Tablet 40 mg PO PM RF: 0 magnesium oxide 250 mg magnesium Tablet 250 mg PO QAM RF: 0 omeprazole 20 mg Tablet,Delayed Release (Dr/Ec) 20 mg PO BID RF: 0 Changed aspirin [Aspirin Low Dose] 81 mg Tablet,Delayed Release (Dr/Ec) 81 mg PO BID Qty: 0 RF: 0 Stand-Alone Forms: [facility] Discharge Orders: Discharge Order (Routine); Ordered 06/04/18 Ordered By: Jayson Shah Skilled Items Patient informed of condition?: Yes DNR: No Discharge Level of Care: Skilled Communicable Disease: No Discharge Prognosis: Stable Admission Data Admit Date/Time: 06/01/18 20:39 Attending Provider: Jayson Shah Admit Provider: Brian Torres Primary Care Provider: Hernan Fernández Other Providers: Brian Torres ; Randy Mandujano Service: Surgical Services Other Interventions: Discharge Summary Assessment (RN) Last Done: 06/04/18 14:04 DC Date/Time DO NOT enter until pt leaves facility: 06/04/18 17:10
== END 2018-06-04 17:10 | DRG 563 ==
LOC: ED 16:12 → 3N 20:39

== ENCOUNTER 2020-06-24 11:25 | Inpatient (IN) ==
[2020-06-24] MEDS ORDERED: SODIUM CHLORIDE 0.9% 1000ML 1,000 ML IV STA (11:40)
[2020-06-24] MEDS ORDERED: ONDANSETRON INJ 2 MG/ML 2 ML VIAL IV STA (11:40)
--- NOTE | 2020-06-24 11:49 | Emergency Department Note ---
Impression & Plan Hydronephrosis due to obstruction of ureter, Constipation, Hydronephrosis with ureteral calculus, Urinary tract infection, Acute kidney injury ED Provider Note NAME: SONNY REEVES AGE: 79 SEX: F : 1940 ARRIVES VIA: Walk-In INFORMANT: Patient, ED PROVIDER(S): Leno Ruth DO CHIEF COMPLAINT: Abdominal pain HPI: Patient is a 79-year-old female who presented to the emergency department for an evaluation of right-sided abdominal pain. The patient describes right upper and right lower abdominal pain as well as right flank pain. She states it is also underneath her right rib cage. She states that this pain began goran roximately 3 days ago. She is also noticed constipation ever since he is symptoms started. She denies having any vomiting but she has had significant nausea especially when the pain increases. She denies having any fever or cough. She denies having any dysuria or frequency. The patient was seen by her primary care physician on Thursday and this was felt to be secondary to constipation. The patient was started on medications for constipation and also had an enema with a family member. The patient symptoms continue to worsen. She states the pain is worsened with ambulation as well as bending forward. She states nothing that she did help the pain relief. ROS: See above HPI for pertinent positives & negatives. A total of 10 systems reviewed and were otherwise negative. PAST MEDICAL HISTORY: See Below PAST SURGICAL HISTORY: See Below FAMILY HISTORY: See Below SOCIAL HISTORY: See Below HOME MEDICATIONS: See Below ALLERGIES: See Below VITALS: See Below PHYSICAL EXAMINATION: GENERAL: The patient is awake and alert. The patient is very anxious appearing and appears to be uncomfortable. EYES: The conjunctivae are clear. The pupils are round and reactive. EARS, NOSE, MOUTH AND THROAT: The nose is without any evidence of any deformity. NECK: The neck is nontender and supple. RESPIRATORY: Normal respiratory effort is noted there is no evidence of wheezing rhonchi or rales CARDIOVASCULAR: Regular rate and rhythm noted there no murmurs rubs or gallops normal S1 normal S2. GASTROINTESTINAL: The abdomen is moderately distended. There is significant right upper and right lower quadrant tenderness to palpation. There is mild guarding in the right middle quadrant. MUSCULOSKELETAL/EXTREMITIES: There is no evidence of gross deformity full range of motion is noted in the hips and shoulders. SKIN: There is no obvious evidence of any rash. Skin is cool and dry. Trace pedal edema was noted bilaterally. NEUROLOGIC: Patient is awake alert and oriented x3. MEDICAL DECISION MAKING: The patient is a 79-year-old female who presented to the emergency department for an evaluation of abdominal pain and constipation. The patient has had constipation for approximately 3 days but started to notice sharp right-sided abdominal pain over the last few days. The patient's history and physical exam did appear to be consistent with very severe abdominal pain. She was treated with IV fluids IV pain medication and IV antiemetics. She was feeling somewhat improved. Radiographic studies appear to be consistent with moderate constipation but also a distal right ureteral calculus. This resulted in hydronephrosis. I discussed the patient's laboratory and radiographic studies with her as well as her family member. She was also started on IV antibiotics for presumed urinary tract infection noted on urinalysis. Because of her findings and degree of pain I also discussed her case with the on-call [facility]ist group. They have agreed to evaluate the patient in the emergency department for further management and disposition. Triage Nursing notes reviewed. Prior medical records reviewed Vital Signs: reviewed and remarkable for no significant abnormalities Differential diagnosis: Etiologies such as appendicitis, diverticulitis, obstruction, inflammatory bowel disease, renal colic, PUD, biliary pathology, pancreatitis, mesenteric ischemia, aortic pathology, infections, genitourinary, UTI, perforated viscus, as well as others were entertained. ER treatment provided: See below Diagnostics interpreted by me: ECG: EKG was obtained in the emergency department. My interpretation is sinus tachycardia at 108 bpm. There was no ectopy. Low voltage was noted throughout. This was compared to a tracing from June 032018. No significant changes were noted. Cardiac Monitoring: An order was placed for continuous cardiac monitoring. The monitor shows a rate of 82 bpm with sinus rhythm. Laboratory studies: As stated above and show below. Imaging studies: See below Consultation(s): I discussed this case with Kimberli who is on for the [facility]ist group. She has agreed to evaluate the patient in the emergency department for further management and disposition. Past Med/Surg History Medical History (Updated 06/24/20 @ 14:04 by Leno Ruth DO) Bilateral tinnitus Chronic pain both feet and legs Dyslipidemia GERD (gastroesophageal reflux disease) GERD (gastroesophageal reflux disease) Glaucoma HTN (hypertension) Hyperlipidemia Hypocalcemia (10/10/13) Migraine Migraine Neuropathy Neuropathy BOTH FEET AND LEGS Osteoporosis UTI (urinary tract infection) Vitamin D deficiency Surgical History H/O parathyroidectomy "09/26/13" History of back surgery lower Hx of bilateral cataract extraction Hx of cholecystectomy Hx of parathyroidectomy Social History Smoking Status: Former smoker Tobacco Type: Cigarettes Number of Years Since Quit: 25; Hx Alcohol Use: No Hx Substance Use: No Preferred Language: Sami Communication Ability: Effective Prosthetic Lab Technician Required: No Beliefs That Will Affect Care: None marital status: / Current Living Situation: Family Current Living Situation Comment: lives with grandson and granddaughter How many Children do You have: 2 Feels Safe at Home: Yes Assistive Devices: Glasses and Walker Allergies Allergies Allergy/AdvReac Type Severity Reaction Status Date / Time No Known Allergies Allergy Verified 08/29/19 10:55 Home Meds Home Medications Medication Instructions Recorded Confirmed calcium carbonate 500 mg PO BID 05/03/18 08/29/19 gabapentin 600 mg PO QID 05/03/18 08/29/19 losartan 100 mg PO QAM 05/03/18 08/29/19 magnesium oxide 250 mg PO QAM 05/03/18 08/29/19 multivitamin 1 tab PO QAM 05/03/18 08/29/19 omeprazole 20 mg PO BID 05/03/18 08/29/19 simvastatin 40 mg PO PM 05/03/18 08/29/19 baclofen 10 mg PO TID PRN 06/01/18 08/29/19 calcitriol [Rocaltrol] 1 mcg PO QAM 06/01/18 08/29/19 dorzolamide-timolol [Cosopt] 0 drp OPHTHALMIC (EYE) UD 06/01/18 08/29/19 duloxetine [Cymbalta] 60 mg PO DAILY 06/01/18 08/29/19 ibuprofen 400 mg PO QID PRN 06/01/18 08/29/19 indapamide 2.5 mg PO DAILY 06/01/18 08/29/19 latanoprost [Xalatan] 0 drp OPHTHALMIC (EYE) UD 06/01/18 08/29/19 Previous Rx's Medication Instructions Recorded aspirin [Aspirin Low Dose] 81 mg PO BID #0 tab 06/04/18 oxycodone-acetaminophen 5 mg-325 1 tab PO .q8-12H PRN #20 tab 06/27/19 mg tablet Results & Data (ED) Vital Signs Vital Signs - 24 hr 06/24/20 11:32 06/24/20 12:01 06/24/20 12:03 Temperature 36.6 C Temperature Source Temporal Artery Scan Pulse Rate 124 H 104 H 104 H Pulse Rate from SpO2 Sensor 103 H Respiratory Rate 18 21 18 Respiratory Effort / Characteristics Non-Labored Spontaneous Respiratory Depth Normal Respiratory Pattern Regular Blood Pressure 116/72 139/70 Blood Pressure Mean 86 93 Blood Pressure Position Sitting Pulse Oximetry 93 92 Oxygen Delivery Method Room Air Sepsis Recent Fever Within 48 Hours No Sepsis New/Unexplained Change in Mental Status N/A Sepsis Action Taken by Nursing No Action Required 06/24/20 12:04 06/24/20 12:30 06/24/20 12:31 Temperature Temperature Source Pulse Rate 121 H 93 H 94 H Pulse Rate from SpO2 Sensor 105 H 93 H 93 H Respiratory Rate 21 17 18 Respiratory Effort / Characteristics Respiratory Depth Respiratory Pattern Blood Pressure 158/64 H Blood Pressure Mean 95 Blood Pressure Position Pulse Oximetry 94 100 100 Oxygen Delivery Method Sepsis Recent Fever Within 48 Hours Sepsis New/Unexplained Change in Mental Status Sepsis Action Taken by Nursing 06/24/20 13:00 06/24/20 13:30 06/24/20 13:42 Temperature Temperature Source Pulse Rate 90 95 H 95 H Pulse Rate from SpO2 Sensor 92 H Respiratory Rate 19 21 15 Respiratory Effort / Characteristics Respiratory Depth Respiratory Pattern Blood Pressure 118/81 128/86 Blood Pressure Mean 93 100 Blood Pressure Position Pulse Oximetry 99 Oxygen Delivery Method Sepsis Recent Fever Within 48 Hours Sepsis New/Unexplained Change in Mental Status Sepsis Action Taken by Nursing 06/24/20 13:43 06/24/20 14:00 06/24/20 14:01 Temperature Temperature Source Pulse Rate 93 H 92 H 93 H Pulse Rate from SpO2 Sensor Respiratory Rate 15 15 16 Respiratory Effort / Characteristics Respiratory Depth Respiratory Pattern Blood Pressure 115/69 Blood Pressure Mean 84 Blood Pressure Position Pulse Oximetry Oxygen Delivery Method Sepsis Recent Fever Within 48 Hours Sepsis New/Unexplained Change in Mental Status Sepsis Action Taken by Long-Term Medications Current Medication List: was personally reviewed by me Laboratory Data Attestation: I reviewed the patient's lab results. Result diagrams: 06/24/20 11:56 06/24/20 11:56 Lab Results 06/24/20 06/24/20 06/24/20 Range/Units 11:56 11:56 11:56 WBC 14.00 H (4.8-10.8) K/uL RBC 4.87 (4.2-5.4) M/uL Hgb 15.2 (12.0-16.0) g/dL POC Hgb (12.0-16.0) g/dl Hct 45.3 (37-47) % POC Hct (37-47) % MCV 93.0 (80-100) fL MCH 31.2 (25-34) pg MCHC 33.6 (32-36) g/dL RDW Std Deviation 43.9 (36.4-46.3) fL RDW Coeff of Didi 12.9 (11.5-14.5) % Plt Count 232 (130-400) K/uL MPV 9.8 (7.4-10.4) fL Immature Gran % (Auto) 0.3 % Neut % (Auto) 80.9 % Lymph % (Auto) 11.0 % [place] % (Auto) 7.4 % Eos % (Auto) 0.3 % Baso % (Auto) 0.1 % Neut # (Auto) 11.33 H (1.4-6.5) K/uL Lymph # (Auto) 1.54 (1.2-3.4) K/uL [place] # (Auto) 1.04 H (0.11-0.59) K/uL Eos # (Auto) 0.04 (0-0.5) K/uL Baso # (Auto) 0.01 (0-0.2) K/uL Immature Gran # (Auto) 0.04 H (0.00-0.02) K/uL PT 10.9 (9.0-12.0) Seconds INR 1.1 (0.9-1.1) APTT 24.7 (21.0-31.0) Seconds PTT Ratio 0.9 POC Sodium (135-144) mmol/L Sodium 139 (136-145) mmol/L POC Potassium (3.3-5.0) mmol/L Potassium 3.5 (3.5-5.1) mmol/L POC Chloride (101-112) mmol/L Chloride 100 (98-107) mmol/L Carbon Dioxide 30 (21-32) mmol/L POC Total CO2 (24-31) mmol/L Anion Gap 9.0 (3-11) POC Anion Gap (16-25) mmol/L POC BUN (7-18) mg/dl BUN 35 H (7-18) mg/dl Creatinine 1.81 H (0.6-1.2) mg/dl POC Creatinine (0.6-1.3) mg/dl Est Cr Clr Drug Dosing 24.8 ml/min Est GFR ( Amer) 30.3 Est GFR (Non-Af Amer) 26.1 BUN/Creatinine Ratio 19.2 (10-20) Glucose 133 H (70-99) mg/dl POC Glucose (other) (70-99) mg/dl Calcium 9.6 (8.5-10.1) mg/dl POC Ioniz Calcium Jonel (1.12-1.32) mmol/l Total Bilirubin 0.9 (0.2-1) mg/dl AST 20 (15-37) U/L ALT 22 (12-78) U/L Alkaline Phosphatase 77 (45-117) U/L Troponin I < 0.015 (0-0.045) ng/ml Total Protein 8.2 (6.4-8.2) gm/dl Albumin 3.6 (3.4-5.0) gm/dl Globulin 4.6 H (2.5-4.0) gm/dl Albumin/Globulin Ratio 0.8 L (0.9-2) Lipase 75 (73-393) U/L Urine Color Urine Appearance (Clear) Urine pH (4.5-7.5) Ur Specific [place] (1.000-1.030) Urine Protein (Negative) Urine Glucose (UA) (Negative) Urine Ketones (Negative) Urine Blood (Negative) Urine Nitrite (Negative) Urine Bilirubin (Negative) Urine Urobilinogen (Negative) Ur Leukocyte Esterase (Negative) Urine WBC (Auto) (0-5) /hpf Urine RBC (Auto) (0-4) /hpf U Hyaline Cast (Auto) (0-5) /lpf U Epithel Cells (Auto) (0-5) /lpf Urine Bacteria (Auto) (Negative) COVID-19 Eval Order SARS-CoV-2, RNA, NAAT (NEGATIVE) 06/24/20 06/24/20 06/24/20 Range/Units 12:01 12:10 12:10 WBC (4.8-10.8) K/uL RBC (4.2-5.4) M/uL Hgb (12.0-16.0) g/dL POC Hgb 15.0 (12.0-16.0) g/dl Hct (37-47) % POC Hct 44 (37-47) % MCV (80-100) fL MCH (25-34) pg MCHC (32-36) g/dL RDW Std Deviation (36.4-46.3) fL RDW Coeff of Didi (11.5-14.5) % Plt Count (130-400) K/uL MPV (7.4-10.4) fL Immature Gran % (Auto) % Neut % (Auto) % Lymph % (Auto) % [place] % (Auto) % Eos % (Auto) % Baso % (Auto) % Neut # (Auto) (1.4-6.5) K/uL Lymph # (Auto) (1.2-3.4) K/uL [place] # (Auto) (0.11-0.59) K/uL Eos # (Auto) (0-0.5) K/uL Baso # (Auto) (0-0.2) K/uL Immature Gran # (Auto) (0.00-0.02) K/uL PT (9.0-12.0) Seconds INR (0.9-1.1) APTT (21.0-31.0) Seconds PTT Ratio POC Sodium 138 (135-144) mmol/L Sodium (136-145) mmol/L POC Potassium 3.5 (3.3-5.0) mmol/L Potassium (3.5-5.1) mmol/L POC Chloride 95 L (101-112) mmol/L Chloride (98-107) mmol/L Carbon Dioxide (21-32) mmol/L POC Total CO2 32 H (24-31) mmol/L Anion Gap (3-11) POC Anion Gap 15.0 L (16-25) mmol/L POC BUN 35 H (7-18) mg/dl BUN (7-18) mg/dl Creatinine (0.6-1.2) mg/dl POC Creatinine 1.7 H (0.6-1.3) mg/dl Est Cr Clr Drug Dosing ml/min Est GFR ( Amer) Est GFR (Non-Af Amer) BUN/Creatinine Ratio (10-20) Glucose (70-99) mg/dl POC Glucose (other) 136 H (70-99) mg/dl Calcium (8.5-10.1) mg/dl POC Ioniz Calcium Jonel 1.10 L (1.12-1.32) mmol/l Total Bilirubin (0.2-1) mg/dl AST (15-37) U/L ALT (12-78) U/L Alkaline Phosphatase (45-117) U/L Troponin I (0-0.045) ng/ml Total Protein (6.4-8.2) gm/dl Albumin (3.4-5.0) gm/dl Globulin (2.5-4.0) gm/dl Albumin/Globulin Ratio (0.9-2) Lipase (73-393) U/L Urine Color Urine Appearance (Clear) Urine pH (4.5-7.5) Ur Specific [place] (1.000-1.030) Urine Protein (Negative) Urine Glucose (UA) (Negative) Urine Ketones (Negative) Urine Blood (Negative) Urine Nitrite (Negative) Urine Bilirubin (Negative) Urine Urobilinogen (Negative) Ur Leukocyte Esterase (Negative) Urine WBC (Auto) (0-5) /hpf Urine RBC (Auto) (0-4) /hpf U Hyaline Cast (Auto) (0-5) /lpf U Epithel Cells (Auto) (0-5) /lpf Urine Bacteria (Auto) (Negative) COVID-19 Eval Order [facility] SARS-CoV-2, RNA, NAAT NEGATIVE (NEGATIVE) 06/24/20 Range/Units 13:10 WBC (4.8-10.8) K/uL RBC (4.2-5.4) M/uL Hgb (12.0-16.0) g/dL POC Hgb (12.0-16.0) g/dl Hct (37-47) % POC Hct (37-47) % MCV (80-100) fL MCH (25-34) pg MCHC (32-36) g/dL RDW Std Deviation (36.4-46.3) fL RDW Coeff of Didi (11.5-14.5) % Plt Count (130-400) K/uL MPV (7.4-10.4) fL Immature Gran % (Auto) % Neut % (Auto) % Lymph % (Auto) % [place] % (Auto) % Eos % (Auto) % Baso % (Auto) % Neut # (Auto) (1.4-6.5) K/uL Lymph # (Auto) (1.2-3.4) K/uL [place] # (Auto) (0.11-0.59) K/uL Eos # (Auto) (0-0.5) K/uL Baso # (Auto) (0-0.2) K/uL Immature Gran # (Auto) (0.00-0.02) K/uL PT (9.0-12.0) Seconds INR (0.9-1.1) APTT (21.0-31.0) Seconds PTT Ratio POC Sodium (135-144) mmol/L Sodium (136-145) mmol/L POC Potassium (3.3-5.0) mmol/L Potassium (3.5-5.1) mmol/L POC Chloride (101-112) mmol/L Chloride (98-107) mmol/L Carbon Dioxide (21-32) mmol/L POC Total CO2 (24-31) mmol/L Anion Gap (3-11) POC Anion Gap (16-25) mmol/L POC BUN (7-18) mg/dl BUN (7-18) mg/dl Creatinine (0.6-1.2) mg/dl POC Creatinine (0.6-1.3) mg/dl Est Cr Clr Drug Dosing ml/min Est GFR ( Amer) Est GFR (Non-Af Amer) BUN/Creatinine Ratio (10-20) Glucose (70-99) mg/dl POC Glucose (other) (70-99) mg/dl Calcium (8.5-10.1) mg/dl POC Ioniz Calcium Jonel (1.12-1.32) mmol/l Total Bilirubin (0.2-1) mg/dl AST (15-37) U/L ALT (12-78) U/L Alkaline Phosphatase (45-117) U/L Troponin I (0-0.045) ng/ml Total Protein (6.4-8.2) gm/dl Albumin (3.4-5.0) gm/dl Globulin (2.5-4.0) gm/dl Albumin/Globulin Ratio (0.9-2) Lipase (73-393) U/L Urine Color Dark Yellow Urine Appearance Cloudy A (Clear) Urine pH 5.0 (4.5-7.5) Ur Specific [place] 1.023 (1.000-1.030) Urine Protein Trace H (Negative) Urine Glucose (UA) Negative (Negative) Urine Ketones Negative (Negative) Urine Blood 3+ H (Negative) Urine Nitrite Negative (Negative) Urine Bilirubin Negative (Negative) Urine Urobilinogen Negative (Negative) Ur Leukocyte Esterase 2+ H (Negative) Urine WBC (Auto) >30 H (0-5) /hpf Urine RBC (Auto) 5-10 H (0-4) /hpf U Hyaline Cast (Auto) 5-10 H (0-5) /lpf U Epithel Cells (Auto) >30 H (0-5) /lpf Urine Bacteria (Auto) 2+ H (Negative) COVID-19 Eval Order SARS-CoV-2, RNA, NAAT (NEGATIVE) Administered Medications Ceftriaxone Sodium (Rocephin) 1,000 mg in 50 mls @ 100 mls/hr IV NOW STA Stop: 06/24/20 14:28 Last Admin: 06/24/20 14:02 Dose: 100 mls/hr Documented by: [id number] Sodium Chloride (Nss 1000ml) 1,000 mls @ 999 mls/hr IV .Q1H1M ONE Stop: 06/24/20 15:04 Last Admin: 06/24/20 14:07 Dose: 999 mls/hr Documented by: [id number] Morphine Sulfate (Morphine Sulfate 4 Mg/Ml 1 Ml Carp\\Vial) 4 mg IV Q15M PRN PRN Reason: Pain Stop: 07/08/20 11:39 Last Admin: 06/24/20 14:02 Dose: 4 mg Documented by: [id number] Admin: 06/24/20 12:01 Dose: 4 mg Documented by: [id number] Discontinued Medications Sodium Chloride (Nss 1000ml) 1,000 mls @ 999 mls/hr IV .Q1H1M STA Stop: 06/24/20 12:40 Last Infusion: 06/24/20 13:32 Dose: 0 mls/hr Documented by: [id number] Admin: 06/24/20 12:01 Dose: 999 mls/hr Documented by: [id number] Ondansetron HCl (Ondansetron Inj 2 Mg/Ml 2 Ml Vial) 4 mg IV NOW STA Stop: 06/24/20 11:41 Last Admin: 06/24/20 12:01 Dose: 4 mg Documented by: [id number] Imaging Data Radiologist's Impression: Patient: SONNY REEVES Admit Date: 06/24/20 MR#: [id number] Address1: [address] [place] [address] Acct ID:[id number] Address2: Date: 1940 [facility] Zip: [place] [address] Age: 79 Location: ED Sex: F Room/Bed: Att Phy: Diagnosis: ABDOIMNAL PAIN [place] Phy: Hernan Fernández III, MD Service Date: 06/24/20 Fam Phy: Interpreting Phy: Usama Jang MD Admit Phy: Ordering Phy: Leno Ruth DO cc: ~ CT SCAN OF THE ABDOMEN AND PELVIS WITHOUT IV CONTRAST CLINICAL HISTORY: Right flank pain. COMPARISON STUDY: No priors. TECHNIQUE: CT scan of the abdomen and pelvis is performed from the lung bases to the proximal femora. Images are reviewed in the axial, sagittal, and coronal planes. IV contrast was not administered for this examination. A dose lowering technique was utilized adhering to the principles of ALARA. CT DOSE: 582.41 mGy.cm FINDINGS: Lung bases: The heart is mildly enlarged and without pericardial effusion. The coronary arteries are densely calcified. The lung bases are clear. A small hiatal hernia is noted. Liver: The unenhanced liver is normal in size, contour, and attenuation. There is no intrahepatic biliary ductal dilatation. Gallbladder: Surgically absent. Spleen: Normal in size and attenuation. Pancreas: The unenhanced pancreas is atrophic and grossly unremarkable. Adrenal glands: Unremarkable. Kidneys: The unenhanced kidneys demonstrate cortical atrophy. There is a 4 mm obstructing calculus protruding from the right vesicoureteral junction seen on image #441. This causes mild to moderate right-sided hydroureteronephrosis. No additional calculi are identified in either kidney. There is no left-sided hydronephrosis. Small cortical hypodensities likely represent cysts but are too small for definitive characterization. Abdominal vasculature: There is advanced atherosclerotic calcification and mild ectasia of the abdominal aorta. Bowel: There is mild to moderate colonic diverticulosis without CT evidence of acute diverticulitis. No bowel obstruction is seen the right colon is distended noting moderate fecal retention. There is a large duodenal diverticulum. The appendix is not visualized. Peritoneum: There is no intraperitoneal free air or abdominal ascites. Lymphadenopathy: None. Pelvic viscera: The bladder wall appears circumferentially thickened. There are large exophytic calcified fibroids seen on the right. The ovaries are normal as imaged. Skeletal structures: The skeletal structures are osteopenic. There is moderate lumbar sacral spondylosis. A large hemangioma seen in the body of T12. No lytic or blastic lesions are seen. There are healed right-sided rib fractures. IMPRESSION: 1. There is a 4 mm obstructive calculus protruding from the right vesicoureteral junction. This causes mild to moderate right hydroureteronephrosis. 2. No additional calculi are identified in either kidney. 3. There is gaseous distention of the right colon with moderate fecal retention. 4. No bowel obstruction is seen. 5. Mild cardiomegaly. 6. Fibroid uterus. 7. Additional findings as above. ACT 112: Negative or not required by law. Electronically signed by: Usama Jang M.D. 06/24/2020 12:44 PM Dictated: 06/24/20 1236 Transcribed: 06/24/20 1236 Patient: SONNY REEVES Admit Date: 06/24/20 MR#: [id number] Address1: [address] [place] [address] Acct ID:[id number] Address2: Date: 1940 [facility] Zip: [place] [address] Age: 79 Location: ED Sex: F Room/Bed: Att Phy: Diagnosis: ABDOIMNAL PAIN Jewels Phy: Hernan Fernández III, MD Service Date: 06/24/20 [facility] Phy: Interpreting Phy: Usama Jang MD Admit Phy: Ordering Phy: Leno Ruth, DO cc: ~ SINGLE VIEW CHEST CLINICAL HISTORY: Atypical chest pain. FINDINGS: An AP, portable, upright chest radiograph is compared to study dated 06/03/2018. The cardiomediastinal silhouette is unremarkable noting atheros clerotic calcification of the thoracic aorta. There are low lung volumes with bibasilar scarring/atelectasis. No airspace consolidation or large pleural effusion is identified. No pneumothorax is seen. The skeletal structures are osteopenic. The bony thorax is grossly intact. IMPRESSION: No active disease in the chest. ACT 112: Negative or not required by law. Electronically signed by: Usama Jang M.D. 06/24/2020 11:55 AM Dictated: 06/24/20 1154 Transcribed: 06/24/20 1154 Discharge Plan Visit Data Chief Complaint: Abdominal Pain Stated Complaint: ABDOIMNAL PAIN ED Provider: Leno Ruth Discharge Problem: Hydronephrosis due to obstruction of ureter, Constipation, Hydronephrosis with ureteral calculus, Urinary tract infection, Acute kidney injury Patient Disposition: Being Evaluated by Hospitalist Condition: Good Forms Stand Alone Forms: [facility] Prescriptions Prescriptions: No Action oxycodone-acetaminophen [Percocet] 5-325 mg tablet 1 tab PO .q8-12H PRN (Reason: pain) Qty: 20 RF: 0 latanoprost [Xalatan] 0.005 % drops 0 drp ophthalmic (eye) UD RF: 0 indapamide 2.5 mg tablet 2.5 mg PO DAILY RF: 0 ibuprofen 200 mg Capsule 400 mg PO QID PRN (Reason: Pain) RF: 0 baclofen 10 mg Tablet 10 mg PO TID PRN (Reason: Muscle Pain) RF: 0 calcitriol [Rocaltrol] 0.5 mcg capsule 1 mcg PO QAM RF: 0 dorzolamide-timolol [Cosopt] 22.3-6.8 mg/mL drops 0 drp ophthalmic (eye) UD RF: 0 duloxetine [Cymbalta] 60 mg capsule,delayed release(DR/EC) 60 mg PO DAILY RF: 0 aspirin [Aspirin Low Dose] 81 mg Tablet,Delayed Release (Dr/Ec) 81 mg PO BID Qty: 0 RF: 0 losartan 100 mg Tablet 100 mg PO QAM RF: 0 calcium carbonate 500 mg calcium (1,250 mg) Tablet 500 mg PO BID RF: 0 gabapentin 300 mg Capsule 600 mg PO QID RF: 0 multivitamin Tablet 1 tab PO QAM RF: 0 simvastatin 40 mg Tablet 40 mg PO PM RF: 0 magnesium oxide 250 mg magnesium Tablet 250 mg PO QAM RF: 0 omeprazole 20 mg Tablet,Delayed Release (Dr/Ec) 20 mg PO BID RF: 0 Referrals Referrals: Hernan Fernández MD [Primary Care Provider] - Discharge Problem: Constipation Qualifiers: Constipation type: unspecified constipation type Qualified Code(s): K59.00 - Constipation, unspecified Urinary tract infection Qualifiers: Urinary tract infection type: site unspecified Hematuria presence: with hematuria Qualified Code(s): N39.0 - Urinary tract infection, site not specified
--- NOTE | 2020-06-24 11:56 | XRay Report ---
SINGLE VIEW CHEST CLINICAL HISTORY: Atypical chest pain. FINDINGS: An AP, portable, upright chest radiograph is compared to study dated 06/03/2018. The cardiom ediastinal silhouette is unremarkable noting atherosclerotic calcification of the thoracic aorta. The re are low lung volumes with bibasilar scarring/atelectasis. No airspace consolidation or large pleur al effusion is identified. No pneumothorax is seen. The skeletal structures are osteopenic. The bony thorax is grossly intact. IMPRESSION: No active disease in the chest. ACT 112: Negative or not required by law. Electronically signed by: Usama Jang M.D. 06/24/2020 11:55 AM
[2020-06-24] MEDS: MoRPHine SULFATE 4 MG/ML 1 ML CARP\\VIAL IV PRN ×2 (12:01→14:02)
[2020-06-24 12:08] LABS: Basophils # (auto) 0.01 K/uL (0-0.2); Basophils % (auto) 0.1 %; Eosinophils # (auto) 0.04 K/uL (0-0.5); Eosinophils % (auto) 0.3 %; Hematocrit (blood only) 45.3 % (37-47); Hemoglobin 15.2 g/dL (12.0-16.0); Immature Granulocytes # (auto) 0.04 K/uL (0.00-0.02); Immature Granulocytes % (auto) 0.3 %; Lymphocytes # (auto) 1.54 K/uL (1.2-3.4); Mean Corpuscular Hemoglobin 31.2 pg (25-34); Mean Corpuscular Hgb Conc 33.6 g/dL (32-36); Mean Platelet Volume 9.8 fL (7.4-10.4); Monocytes # (auto) 1.04 K/uL (0.11-0.59); Monocytes % (auto) 7.4 %; Neutrophils # (auto) 11.33 K/uL (1.4-6.5); Neutrophils % (auto) 80.9 %; Platelet Count 232 K/uL (130-400); RDW Coefficient of Variation 12.9 % (11.5-14.5); RDW Standard Deviation 43.9 fL (36.4-46.3); Red Blood Count 4.87 M/uL (4.2-5.4)
[2020-06-24 12:20] LABS: iSTAT Creatinine 1.7 mg/dl (0.6-1.3); iSTAT Ionized Calcium 1.1 mmol/l (1.12-1.32); iSTAT Potassium 3.5 mmol/L (3.3-5.0)
[2020-06-24 12:23] LABS: INR 1.1 (0.9-1.1); Partial Thromboplastin Ratio 0.9; Partial Thromboplastin Time 24.7 Seconds (21.0-31.0); Prothrombin Time 10.9 Seconds (9.0-12.0)
[2020-06-24 12:25] LABS: Alanine Aminotransferase 22 U/L (12-78); Albumin Level 3.6 gm/dl (3.4-5.0); Aspartate Aminotransferase 20 U/L (15-37); BUN Creatinine Ratio 19.2 (10-20); Blood Urea Nitrogen 35 mg/dl (7-18); Calcium 9.6 mg/dl (8.5-10.1); Carbon Dioxide 30 mmol/L (21-32); Chloride 100 mmol/L (98-107); Creatinine Clr Calc Pharmacy 24.8 ml/min; Est GFR (African American) 30.3; Est GFR (Non-African American) 26.1; Glucose 133 mg/dl (70-99); Lipase 75 U/L (73-393); Potassium 3.5 mmol/L (3.5-5.1); Sodium 139 mmol/L (136-145)
[2020-06-24 12:28] LABS: Albumin Globulin Ratio 0.8 (0.9-2); Alkaline Phosphatase 77 U/L (45-117); Bilirubin,Total 0.9 mg/dl (0.2-1); Globulin 4.6 gm/dl (2.5-4.0); Total Protein 8.2 gm/dl (6.4-8.2); Troponin I < 0.015 ng/ml (0-0.045)
--- NOTE | 2020-06-24 12:45 | CT Scan Report ---
CT SCAN OF THE ABDOMEN AND PELVIS WITHOUT IV CONTRAST CLINICAL HISTORY: Right flank pain. COMPARISON STUDY: No priors. TECHNIQUE: CT scan of the abdomen and pelvis is performed from the lung bases to the proximal femora. Images are reviewed in the axial, sagittal, and coronal planes. IV contrast was not administered for this examination. A dose lowering technique was utilized adhering to the principles of ALARA. CT DOSE: 582.41 mGy.cm FINDINGS: Lung bases: The heart is mildly enlarged and without pericardial effusion. The coronary arteries are densely calcified. The lung bases are clear. A small hiatal hernia is noted. Liver: The unenhanced liver is normal in size, contour, and attenuation. There is no intrahepatic edwin iary ductal dilatation. Gallbladder: Surgically absent. Spleen: Normal in size and attenuation. Pancreas: The unenhanced pancreas is atrophic and grossly unremarkable. Adrenal glands: Unremarkable. Kidneys: The unenhanced kidneys demonstrate cortical atrophy. There is a 4 mm obstructing calculus pr otruding from the right vesicoureteral junction seen on image #[id number]. This causes mild to moderate righ t-sided hydroureteronephrosis. No additional calculi are identified in either kidney. There is no lef t-sided hydronephrosis. Small cortical hypodensities likely represent cysts but are too small for def initive characterization. Abdominal vasculature: There is advanced atherosclerotic calcification and mild ectasia of the abdomi nal aorta. Bowel: There is mild to moderate colonic diverticulosis without CT evidence of acute diverticulitis. No bowel obstruction is seen the right colon is distended noting moderate fecal retention. There is a large duodenal diverticulum. The appendix is not visualized. Peritoneum: There is no intraperitoneal free air or abdominal ascites. Lymphadenopathy: None. Pelvic viscera: The bladder wall appears circumferentially thickened. There are large exophytic calci fied fibroids seen on the right. The ovaries are normal as imaged. Skeletal structures: The skeletal structures are osteopenic. There is moderate lumbar sacral spondylo sis. A large hemangioma seen in the body of T12. No lytic or blastic lesions are seen. There are heal ed right-sided rib fractures. IMPRESSION: 1. There is a 4 mm obstructive calculus protruding from the right vesicoureteral junction. This cause s mild to moderate right hydroureteronephrosis. 2. No additional calculi are identified in either kidney. 3. There is gaseous distention of the right colon with moderate fecal retention. 4. No bowel obstruction is seen. 5. Mild cardiomegaly. 6. Fibroid uterus. 7. Additional findings as above. ACT 112: Negative or not required by law. Electronically signed by: Usama Jang M.D. 06/24/2020 12:44 PM
--- NOTE | 2020-06-24 12:47 | Electrocardiogram Report ---
Test Reason : Blood Pressure : / mmHG Vent. Rate : 108 BPM Atrial Rate : 108 BPM P-R Int : 168 ms QRS Dur : 070 ms QT Int : 352 ms P-R-T Axes : 047 -20 053 degrees QTc Int : 471 ms Sinus tachycardia with Premature atrial complexes Low voltage QRS Borderline ECG When compared with ECG of 03-JUN-2018 10:16, Premature atrial complexes are now Present Confirmed by Leno Becker ([id number]) on 06/24/2020 12:47:07 PM Referred By: REFERRED SELF Confirmed By:Leno Becker
[2020-06-24 13:32] LABS: Appearance Urine Cloudy (Clear); Bilirubin Urine Negative (Negative); Blood Urine 3+ (Negative); Color Urine Dark Yellow; Epithelial Cell Urine Auto >30 /lpf (0-5); Glucose Urine UA Negative (Negative); Ketones Urine Negative (Negative); Leukocyte Esterase Urine 2+ (Negative); Nitrite Urine Negative (Negative); Protein Urine Trace (Negative); Specific Gravity Urine 1.023 (1.000-1.030); Urobilinogen Urine Negative (Negative); WBC Urine Automated >30 /hpf (0-5)
[2020-06-24 13:52] LABS: Bacteria Urine Automated 2+ (Negative)
[2020-06-24] MEDS ORDERED: cefTRIAXone SODIUM 1,000 MG/50 ML BAG IV STA (13:59)
[2020-06-24] MEDS ORDERED: SODIUM CHLORIDE 0.9% 1000ML 1,000 ML IV ONE (14:04)
--- NOTE | 2020-06-24 14:35 | History & Physical Report ---
Date of Service June 24, 2020 Assessment & Plan (1) Hydronephrosis with ureteral calculus: (2) Urinary tract infection: This is a 79-year-old female with PMH of hypertension, CKD 3, PAD and other medical problems listed below who presents with progressive abdominal and back pain for the past 3 days and was found to have obstructing ureteral stone, UTI and acute kidney injury. CT abd/pelvis with 4 mm obstructive calculus protruding from the right vesicoureteral junction. This causes mild to moderate right hydroureteronephrosis Continue Rocephin. Follow urine culture Pain control IV fluids Strain urine Flomax Routine urology consult NPO after midnight (3) Acute kidney injury superimposed on chronic kidney disease: Cr elevated at 1.81 (baseline Cr~ 1) in setting of obstructing ureteral stone Continue IV fluids, avoid nephrotoxic medications, repeat BMP in AM (4) Constipation: Gaseous distention of the right colon with moderate fecal retention Giving Miralax x 1 now, Colace 100mg BID (5) HTN (hypertension): Holding losartan in setting of MONE (6) GERD (gastroesophageal reflux disease): Continue PPI (7) Neuropathy: Continue gabapentin (8) Dyslipidemia: Continue statin DVT Ppx: SCDs for now Code status: FULL PCP: Jolene Dispo: Admitted to med/surg. Plan to return home once medically stable. Patient seen in collaboration with Dr. Viera. Please see addendum. History of Present Illness Chief Complaint: Right abdominal and back pain Primary Care Provider: Hernan Fernández MD This is a 79-year-old female with PMH of hypertension, CKD 3, PAD and other medical problems listed below who presents with progressive abdominal and back pain for the past 3 days. Patient describes pain as intermittent and sharp, originating in right lower abdomen with radiation toward central abdomen as well as right flank and lower back. Pain exacerbated with movement and to the touch. Denies any alleviating factors. Denies any fever but endorses chills for the past 2 days. Some nausea but denies vomiting. Also with increased urgency and difficulty emptying bladder. Denies any dysuria, pyuria or hematuria. Has felt constipated lately, having small amounts of soft stool but not had a normal size bowel movement in days. Denies any medication changes. No personal history of kidney stones. Allergies Allergy/AdvReac Type Severity Reaction Status Date / Time No Known Allergies Allergy Verified 06/24/20 14:46 Home Medications Medication Instructions Recorded Confirmed Type calcium carbonate 500 mg PO BID 05/03/18 06/24/20 History gabapentin 600 mg PO QID 05/03/18 06/24/20 History losartan 100 mg PO QAM 05/03/18 06/24/20 History magnesium oxide 400 mg PO QAM 05/03/18 06/24/20 History multivitamin 1 tab PO QAM 05/03/18 06/24/20 History omeprazole 20 mg PO BID 05/03/18 06/24/20 History simvastatin 40 mg PO PM 05/03/18 06/24/20 History baclofen 10 mg PO TID PRN 06/01/18 06/24/20 History calcitriol [Rocaltrol] 1 mcg PO QAM 06/01/18 06/24/20 History dorzolamide-timolol [Cosopt] 1 drp OPB BID 06/01/18 06/24/20 History duloxetine [Cymbalta] 60 mg PO DAILY 06/01/18 06/24/20 History ibuprofen 400 mg PO QID PRN 06/01/18 06/24/20 History indapamide 2.5 mg PO DAILY 06/01/18 06/24/20 History latanoprost [Xalatan] 1 drp OPHTHALMIC (EYE) HS 06/01/18 06/24/20 History aspirin 325 mg PO Q6H PRN 06/24/20 06/24/20 History aspirin [Aspirin Low Dose] 81 mg PO QAM 06/24/20 06/24/20 History Past Med/Surg History Medical History Bilateral tinnitus Chronic pain both feet and legs Closed fracture of distal end of right fibula Dyslipidemia GERD (gastroesophageal reflux disease) Glaucoma H/O parathyroidectomy HTN (hypertension) Hyperlipidemia Migraine Neuropathy BOTH FEET AND LEGS Osteoporosis Vitamin D deficiency Surgical History H/O parathyroidectomy "09/26/13" History of back surgery lower Hx of bilateral cataract extraction Hx of cholecystectomy Family History Other Cancer Social History Smoking Status: Former smoker Tobacco Type: Cigarettes Number of Years Since Quit: 25; Hx Alcohol Use: No Hx Substance Use: No Preferred Language: Slovak Communication Ability: Effective 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 Physical Exam Physical Exam: General Appearance: WD/WN, vitals as above, NAD, sitting up in bed, pleasant, conversing easily Head: normocephalic, atraumatic Eyes: normal inspection, PERRL, conjunctivae normal, anicteric sclerae ENT: external ear and nose normal, oropharynx normal Neck: normal visual inspection, trachea midline, no thyromegaly Respiratory: normal respiratory effort, lungs clear to auscultation, no wheeze, rales, rhonchi. No accessory muscle use Cardiovascular: regular rate, rhythm, no murmur, normal peripheral pulses, no BLE edema. Vessels: no JVD Chest: normal inspection of chest Abdomen/GI: hypoactive bowel sounds, soft but TTP in RLQ wrapping around to flank, no hepatosplenomegaly : R CVA TTP Extremities/Musculoskeletal: no cyanosis or clubbing, extremities motor strength 5/5 Neurologic: PERRL, EOMI, accommodation nl, no face palsy, no dysarthria, CN's II-XI intact bilaterally and moves all extremities Psychiatric: A+Ox3, euthymic affect Skin: no rashes, normal color, warm/dry Results & Data Results & Data ([facility]) Vital Signs (Past 12 Hours) Vital Signs Temp Pulse Resp BP Pulse Ox 06/24/20 14:01 93 H 16 06/24/20 14:00 92 H 15 115/69 06/24/20 13:43 93 H 15 06/24/20 13:42 95 H 15 128/86 06/24/20 13:30 95 H 21 06/24/20 13:00 90 19 118/81 99 06/24/20 12:31 94 H 18 100 06/24/20 12:30 93 H 17 158/64 H 100 06/24/20 12:04 121 H 21 94 06/24/20 12:03 104 H 18 139/70 92 06/24/20 12:01 104 H 21 06/24/20 11:32 36.6 C 124 H 18 116/72 93 Laboratory Results Short CBC 06/24/20 06/24/20 Range/Units 11:56 11:56 WBC 14.00 H (4.8-10.8) K/uL Hgb 15.2 (12.0-16.0) g/dL Hct 45.3 (37-47) % Plt Count 232 (130-400) K/uL Sodium 139 (136-145) mmol/L Creatinine 1.81 H (0.6-1.2) mg/dl BMP 06/24/20 11:56 Sodium 139 Potassium 3.5 Chloride 100 Carbon Dioxide 30 BUN 35 H Creatinine 1.81 H Glucose 133 H Calcium 9.6 Cardiac Enzymes 06/24/20 Range/Units 11:56 Troponin I < 0.015 (0-0.045) ng/ml Liver Function 06/24/20 Range/Units 11:56 Total Bilirubin 0.9 (0.2-1) mg/dl AST 20 (15-37) U/L ALT 22 (12-78) U/L Alkaline Phosphatase 77 (45-117) U/L Albumin 3.6 (3.4-5.0) gm/dl Urine 06/24/20 Range/Units 13:10 Urine Color Dark Yellow Urine Appearance Cloudy A (Clear) Urine pH 5.0 (4.5-7.5) Ur Specific [place] 1.023 (1.000-1.030) Urine Protein Trace H (Negative) Urine Glucose (UA) Negative (Negative) Diagnostic Findings CXR: IMPRESSION: No active disease in the chest. CT abd/pelvis: IMPRESSION: 1. There is a 4 mm obstructive calculus protruding from the right vesicoureteral junction. This causes mild to moderate right hydroureteronephrosis. 2. No additional calculi are identified in either kidney. 3. There is gaseous distention of the right colon with moderate fecal retention. 4. No bowel obstruction is seen. 5. Mild cardiomegaly. 6. Fibroid uterus. 7. Additional findings as above. Code Status & VTE Plan VTE Prophylaxis Plan VTE Prophylaxis will be ordered: Yes Supervising Physician Co-Signing Physician Notes Pt was seen and examined. Agreed with Kimberli STEWART exam, assessment and plan. 79-year-old female with PMH of hypertension, CKD 3, PAD presented with progressive abdominal and back pain for the past 3 days. Pt described the pain as sharp, comes and goes, radiating to mid abdomen and right flank area. She said that she has been having increased urinary urgency. Denies any dysuria, chest pain, palpitation, fever, chills, SOB, pyuria or hematuria. CT abd/pelvis showed a 4 mm obstructive calculus protruding from the right vesicoureteral junction. This causes mild to moderate right hydroureteronephrosis.No additional calculi are identified in either kidney. Lab on admission with creatinine 1.8 and positive UA for Leukocytes, bacteria and blood. Received IV Rocephin n the ER. Continue IV fluid hydration and antibiotic with Rocephin. Will consult urology. Will strain urine to check if patient passes the urine. Will follow urine cx. Continue pain control. Will get a KUB in am for follow up. Will make NPO after midnight. MD Aylin (1) Urinary tract infection Hematuria presence: with hematuria Urinary tract infection type: site unspecified Qualified Code(s): N39.0 - Urinary tract infection, site not specified; R31.9 - Hematuria, unspecified (2) Constipation Constipation type: unspecified constipation type Qualified Code(s): K59.00 - Constipation, unspecified
[2020-06-24] MEDS ORDERED: BACLOFEN 10 MG TAB PO PRN (15:18)
[2020-06-24] MEDS ORDERED: POLYETHYLENE (MIRALAX) 17 GM PACK PO PRN (15:23)
[2020-06-24] MEDS ORDERED: ONDANSETRON INJ 2 MG/ML 2 ML VIAL IV PRN (15:23)
[2020-06-24] MEDS ORDERED: ACETAMINOPHEN 325 MG TAB PO PRN (15:23)
[2020-06-24] MEDS ORDERED: oxyCODONE HCL IR 5 MG TAB (IMMEDIATE RELEASE) PO PRN (15:54)
--- NOTE | 2020-06-24 16:05 | Urology Consultation ---
Date of Consultation June 24, 2020 Assessment & Plan (1) Hydronephrosis with ureteral calculus: patient with an extremely distal 4mm stone. Flomax ordered Trial of passage. If patient's pain persists or labs decline she may need to have a surgical intervention. At this time will follow overnight, recheck labs in the AM. Strain urine. (2) Acute kidney injury superimposed on chronic kidney disease: History of Present Illness Reason for Consultation: right ureteral stone Patient presents with a 3 day history of right flank pain. Patient had seen her PCP and they had attributed the pain to constipation. Ultimately it worsened over the weekend and she presented today to the ER. Imaging reveals a right 4mm distal UVJ stone - almost in the bladder. Her pain is controlled now. No fevers. No N/V. Urine today with contamination. 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 She is hemodynamically stable and resting comfortably at this time. Attending Physician: Gino Viera MD Allergies Allergy/AdvReac Type Severity Reaction Status Date / Time No Known Allergies Allergy Verified 06/24/20 14:46 Home Medications Medication Instructions Recorded Confirmed Type calcium carbonate 500 mg PO BID 05/03/18 06/24/20 History gabapentin 600 mg PO QID 05/03/18 06/24/20 History losartan 100 mg PO QAM 05/03/18 06/24/20 History magnesium oxide 400 mg PO QAM 05/03/18 06/24/20 History multivitamin 1 tab PO QAM 05/03/18 06/24/20 History omeprazole 20 mg PO BID 05/03/18 06/24/20 History simvastatin 40 mg PO PM 05/03/18 06/24/20 History baclofen 10 mg PO TID PRN 06/01/18 06/24/20 History calcitriol [Rocaltrol] 1 mcg PO QAM 06/01/18 06/24/20 History dorzolamide-timolol [Cosopt] 1 drp OPB BID 06/01/18 06/24/20 History duloxetine [Cymbalta] 60 mg PO DAILY 06/01/18 06/24/20 History ibuprofen 400 mg PO QID PRN 06/01/18 06/24/20 History indapamide 2.5 mg PO DAILY 06/01/18 06/24/20 History latanoprost [Xalatan] 1 drp OPHTHALMIC (EYE) HS 06/01/18 06/24/20 History aspirin 325 mg PO Q6H PRN 06/24/20 06/24/20 History aspirin [Aspirin Low Dose] 81 mg PO QAM 06/24/20 06/24/20 History Patient History Medical History Bilateral tinnitus Chronic pain both feet and legs Closed fracture of distal end of right fibula Dyslipidemia GERD (gastroesophageal reflux disease) Glaucoma H/O parathyroidectomy HTN (hypertension) Hyperlipidemia Migraine Neuropathy BOTH FEET AND LEGS Osteoporosis Vitamin D deficiency Surgical History H/O parathyroidectomy "09/26/13" History of back surgery lower Hx of bilateral cataract extraction Hx of cholecystectomy Family History Other Cancer Social History Smoking Status: Former smoker Tobacco Type: Cigarettes Number of Years Since Quit: 25; Hx Alcohol Use: No Hx Substance Use: No Preferred Language: Citizen Of [place] Communication Ability: Effective 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 Beliefs That Will Affect Care: None marital status: / Current Living Situation: Family Current Living Situation Comment: lives with grandson and granddaughter How many Children do You have: 2 Other Information That Helps Us Care for You: No Feels Safe at Home: Yes Safety Concerns: Feels Safe At This Time Assistive Devices: Glasses and Walker Review of Systems Review of Systems: All systems reviewed & are unremarkable except as noted in HPI & below Physical Exam Physical Exam: NAD regular rate soft nt nonlabored ao x 3 no LE edema Results & Data ([facility]) Vital Signs (Past 12 Hours) Vital Signs Temp Pulse Pulse Resp BP BP Pulse Ox 06/24/20 15:26 36.7 C 78 16 123/72 94 06/24/20 14:33 86 L 06/24/20 14:31 88 13 123/53 L 93 06/24/20 14:30 89 13 91 06/24/20 14:01 93 H 16 06/24/20 14:00 92 H 15 115/69 06/24/20 13:43 93 H 15 06/24/20 13:42 95 H 15 128/86 06/24/20 13:30 95 H 21 06/24/20 13:00 90 19 118/81 99 06/24/20 12:31 94 H 18 100 06/24/20 12:30 93 H 17 158/64 H 100 06/24/20 12:04 121 H 21 94 06/24/20 12:03 104 H 18 139/70 92 06/24/20 12:01 104 H 21 06/24/20 11:32 36.6 C 124 H 18 116/72 93 PG Care Time/CCT Total # of Minutes Spent Total Time Spent with Patient: Total time spent is greater than 50% in coordination of care (as documented) at patient's floor/unit and/or counseling patient: C[place] [address] Initial Inpt Care Lvl 3 Patient Type Established Diagnoses Hydronephrosis with ureteral calculus N13.2 Acute kidney injury superimposed on chronic kidney disease N17.9; N18.9 Time Spent (min) 25
[2020-06-24] MEDS: LACTATED RINGER'S 1,000 ML IV SCH (16:09)
[2020-06-24] MEDS: GABAPENTIN 600 MG TAB PO SCH ×2 (16:53→21:02)
[2020-06-24] MEDS ORDERED: POLYETHYLENE (MIRALAX) 17 GM PACK PO ONE (17:30)
[2020-06-24] MEDS: DOCUSATE SODIUM 100 MG CAP PO SCH (21:02)
[2020-06-24] MEDS: LATANOPROST 0.005% OP SOLN 2.5 ML BTL OP SCH (21:03)
[2020-06-24] MEDS: DORZOLAMIDE/TIMOLOL 22.3/6.8MG/ML 10 ML BTL OPB SCH (21:03)
[2020-06-24] MEDS: CALCIUM 600MG + VIT D 400 IU TAB PO SCH (21:04)
[2020-06-24] MEDS: TAMSULOSIN HCL 0.4 MG CAP PO SCH (21:04)
[2020-06-24] MEDS: PANTOprazole 40 MG TAB PO SCH (21:04)
[2020-06-24] MEDS: SIMVASTATIN 40 MG TAB PO SCH (21:04)
[2020-06-25] MEDS: LACTATED RINGER'S 1,000 ML IV SCH ×3 (02:38→13:44)
[2020-06-25 07:14] LABS: Hematocrit (blood only) 36.4 % (37-47); Hemoglobin 11.8 g/dL (12.0-16.0); Mean Corpuscular Hemoglobin 30.7 pg (25-34); Mean Corpuscular Hgb Conc 32.4 g/dL (32-36); Mean Corpuscular Volume 94.8 fL (80-100); Mean Platelet Volume 9.8 fL (7.4-10.4); Platelet Count 208 K/uL (130-400); RDW Coefficient of Variation 13.2 % (11.5-14.5); RDW Standard Deviation 46.2 fL (36.4-46.3); Red Blood Count 3.84 M/uL (4.2-5.4); White Blood Count 7.28 K/uL (4.8-10.8)
[2020-06-25 07:37] LABS: BUN Creatinine Ratio 21.2 (10-20); Calcium 8.1 mg/dl (8.5-10.1); Creatinine Clr Calc Pharmacy 34.5 ml/min; Est GFR (African American) 45.2; Potassium 3.6 mmol/L (3.5-5.1)
--- NOTE | 2020-06-25 08:34 | Urology Progress Note ---
Date of Service June 25, 2020 Assessment & Plan (1) Hydronephrosis with ureteral calculus: (2) Right flank pain: 79 year-old female patient admitted with right abdominal/flank pain and MONE secondary to obstructing 4 mm right UVJ calculus and suspected UTI. -Patient remains afebrile. -Labs reviewed - white count and creatinine improving. -Urine culture pending, continue with antibiotic therapy and await cultures. -Patient did pass small stone fragment this morning with additional debris in strainer, pain now resolved. -Will send stone for analysis. -KUB performed, no visualized renal or ureteral calculi. -With passage of stone and pain now resolved, okay to have diet. -Continue with hydration and supportive care. -Would recommend home with oral antibiotic therapy pending urine culture sensitivities. -No acute intervention indicated at this time. -Expected clinical course reviewed with patient, all questions answered. -Will arrange outpatient follow-up with urology service for continued care. Thank you for allowing us to participate in the acute care of Mrs. Rivera. Please reconsult us with additional questions, concerns or changes in patient status. Admission and Anticipated Discharge Date Admission Date: June 24, 2020 Subjective Patient examined at bedside. Awake, alert, and comfortable. Reports she is feeling "back to herself". Currently denies flank or abdominal pain. Denies nausea or vomiting. Does report intermittent dysuria. Denies hematuria. Notes some urinary frequency, urgency - improving from last week. Has been NPO since midnight. Has not required PRN pain medications since yesterday afternoon. She notes this morning, she did pass a small fragment of stone, nursing did keep for evaluation. Overall, symptoms have improved. Chart review: Afebrile Wbc 7.28 (previously 14.0) Hgb 11.8 Creatinine 1.30 (1.81) Urine culture pending, currently on IV Ceftriaxone. Denies additional urologic concerns today. Review of Systems Constitutional: as per Subjective / HPI; no fever and no chills Gastrointestinal: as per Subjective / HPI; no nausea and no vomiting Genitourinary: as per Subjective / HPI Physical Exam Constitutional: well developed and well nourished; no acute distress and not ill appearing Respiratory: normal respiratory effort and able to speak in complete sentences; no respiratory distress and no audible wheezes Gastrointestinal (Abdomen): Inspection/Auscultation: abdomen normal to inspection; abdomen not distended Percussion/Palpation: abdomen soft; abdomen nontender and no guarding Psychiatric: Orientation: alert, oriented x 3 and cooperative Affect: euthymic affect Genitourinary: no CVA tenderness Contents of strained urine examined. Small firm, black, oval fragment roughly 3 mm in size noted in strainer. Additional debris/sand also noted. Results & Data ([facility]) Vital Signs (Past 12 Hours) Vital Signs Temp Pulse Resp BP Pulse Ox 06/25/20 07:55 36.5 C 86 18 128/65 95 06/24/20 22:22 36.7 C 75 16 100/60 92 PG Care Time/CCT Total # of Minutes Spent Total Time Spent with Patient: Total time spent is greater than 50% in coordination of care (as documented) at patient's floor/unit and/or counseling patient: Coding Level of Care Code 28763 Subseq Hosp Care Lvl 2 Diagnoses Hydronephrosis with ureteral calculus N13.2 Right flank pain R10.9
[2020-06-25] MEDS ORDERED: LOSARTAN POTASSIUM 50 MG TAB PO SCH (09:00)
[2020-06-25] MEDS: ASPIRIN 81 MG ECTAB PO SCH ×2 (09:07→11:06)
[2020-06-25] MEDS: DORZOLAMIDE/TIMOLOL 22.3/6.8MG/ML 10 ML BTL OPB SCH ×2 (09:07→20:20)
[2020-06-25] MEDS: CALCIUM 600MG + VIT D 400 IU TAB PO SCH ×3 (09:07→20:16)
[2020-06-25] MEDS: MULTIVITAMIN TAB PO SCH ×2 (09:07→11:07)
[2020-06-25] MEDS: POLYETHYLENE (MIRALAX) 17 GM PACK PO SCH (09:07)
[2020-06-25] MEDS: GABAPENTIN 600 MG TAB PO SCH ×4 (09:07→20:16)
[2020-06-25] MEDS: MAGNESIUM OXIDE 400 MG TAB PO SCH ×2 (09:07→11:07)
[2020-06-25] MEDS: DOCUSATE SODIUM 100 MG CAP PO SCH ×3 (09:07→20:15)
[2020-06-25] MEDS: PANTOprazole 40 MG TAB PO SCH ×3 (09:07→20:17)
[2020-06-25] MEDS: DULoxetine HCL 60 MG CAP PO SCH ×2 (09:07→11:06)
[2020-06-25] MEDS: CALCITRIOL 0.25 MCG CAPSULE PO SCH ×2 (09:08→11:07)
[2020-06-25] MEDS: cefTRIAXone SODIUM 1,000 MG in DEXTROSE 5% 50 ML IV SCH (09:28)
--- NOTE | 2020-06-25 09:29 | XRay Report ---
KUB CLINICAL HISTORY: Distal right ureteral stone. FINDINGS: 2 AP supine abdominal radiographs are correlated with abdominal CT dated 06/25/2011. There i s a nonobstructed abdominal bowel gas pattern. No calcifications are seen projecting over either kidn ey or along the course of ureters. Suture material projects over the right upper quadrant. No evidenc e of intraperitoneal free air is seen on these supine images. Atherosclerotic calcification is noted in the abdominal aorta. The skeletal structures are osteopenic and appear intact. There is moderate l umbosacral spondylosis and scoliosis. IMPRESSION: No calcifications are seen projecting over either kidney or along the course of the urete rs. Electronically signed by: Usama Jang M.D. 06/25/2020 9:28 AM
--- NOTE | 2020-06-25 15:16 | Hospitalist Progress Note ---
Date of Service June 25, 2020 Assessment & Plan (1) Hydronephrosis with ureteral calculus: Present on admission with worsening abdominal pain associated with back pain CT abd/pelvis with 4 mm obstructive calculus protruding from the right vesicoureteral junction. This causes mild to moderate right hydroureteronephrosis Urology on board that recommended conservative management since pt passed small stone fragment this morning with additional debris in strainer KUB this morning showed no calcifications are seen projecting over either kidney or along the course of the ureters. Stone was sent for analysis Currently denies any pain Continue with hydration and supportive care. No acute intervention indicated at this time as per Urology Follow up with urology outpatient Clinically stable (2) Urinary tract infection: Urine cx positive for gram negative bacilli Continue IV Rocephin Follow up urine sensitivity (3) Acute kidney injury superimposed on chronic kidney disease: Cr elevated at 1.81 (baseline Cr~ 1) in setting of obstructing ureteral stone Received IVF Creatinine improved to 1.3 Continue monitor BMP (4) Constipation: Gaseous distention of the right colon with moderate fecal retention Continue Colace (5) HTN (hypertension): Continue to hold losartan in setting of MONE BP stable (6) GERD (gastroesophageal reflux disease): Continue PPI (7) Neuropathy: Continue gabapentin (8) Dyslipidemia: Continue statin DVT Ppx: SCDs for now Code status: FULL PCP: Jolene Dispo: Possible discharge tomorrow Admission and Anticipated Discharge Date Admission Date: June 24, 2020 Subjective Pt was seen and examined for follow up of low back pain from renal stone Lying in bed with no distress, comfortable watching TV Pt said that she feels much better She said that she passed the stone She said that she is not having any pain Denies any chest pain, palpitation, dizziness and SOB Review of Systems Review of Systems: All systems reviewed & are unremarkable except as noted in Subjective Physical Exam Physical Exam: General- No acute distress Head- atraumatic Eyes- PERRL, EOMI, ENT- oropharynx clear Neck- supple, no JVD Lungs- clear to auscultation Heart- regular rhythm; no murmur Abdomen- normal bowel sounds, soft, nontender Extremities- no calf tenderness Neuro- alert, oriented x 3; PERRL, EOMI; no facial palsy; no dysarthria Skin- warm & dry Results & Data Results & Data ([facility]) Vital Signs (Past 12 Hours) Vital Signs Temp Pulse Resp BP Pulse Ox 06/25/20 07:55 36.5 C 86 18 128/65 95 (1) Urinary tract infection Hematuria presence: with hematuria Urinary tract infection type: site unspecified Qualified Code(s): N39.0 - Urinary tract infection, site not specified; R31.9 - Hematuria, unspecified (2) Constipation Constipation type: unspecified constipation type Qualified Code(s): K59.00 - Constipation, unspecified
[2020-06-25] MEDS: SIMVASTATIN 40 MG TAB PO SCH (20:15)
[2020-06-25] MEDS: TAMSULOSIN HCL 0.4 MG CAP PO SCH (20:16)
[2020-06-25] MEDS: LATANOPROST 0.005% OP SOLN 2.5 ML BTL OP SCH (20:17)
[2020-06-25] MEDS: ACETAMINOPHEN 500 MG TAB PO PRN (23:37)
[2020-06-26] MEDS ORDERED: FAMOTIDINE 20 MG in SYRINGE 3 ML IV STA (00:33)
[2020-06-26 01:04] LABS: Basophils # (auto) 0.02 K/uL (0-0.2); Basophils % (auto) 0.3 %; Eosinophils # (auto) 0.22 K/uL (0-0.5); Eosinophils % (auto) 3.1 %; Hematocrit (blood only) 35.4 % (37-47); Hemoglobin 11.4 g/dL (12.0-16.0); Immature Granulocytes # (auto) 0.02 K/uL (0.00-0.02); Immature Granulocytes % (auto) 0.3 %; Lymphocytes # (auto) 1.83 K/uL (1.2-3.4); Mean Corpuscular Hemoglobin 30.6 pg (25-34); Mean Corpuscular Hgb Conc 32.2 g/dL (32-36); Mean Corpuscular Volume 95.2 fL (80-100); Mean Platelet Volume 9.5 fL (7.4-10.4); Monocytes # (auto) 0.54 K/uL (0.11-0.59); Monocytes % (auto) 7.7 %; Neutrophils % (auto) 62.6 %; Platelet Count 178 K/uL (130-400); RDW Coefficient of Variation 12.9 % (11.5-14.5); RDW Standard Deviation 45.1 fL (36.4-46.3); Red Blood Count 3.72 M/uL (4.2-5.4); White Blood Count 7.03 K/uL (4.8-10.8)
[2020-06-26 01:09] LABS: Base Excess ABG 5.4 mEq/L (-9-1.8); HCO3 ABG 32 mmol/L (19-24); PCO2 ABG 55 mmHg (35-46); PO2 ABG 87 mmHg (80-95); pH ABG 7.38 (7.35-7.45)
[2020-06-26 01:10] LABS: Allen Test Pos (Pos)
[2020-06-26 01:17] LABS: Partial Thromboplastin Time 26.4 Seconds (21.0-31.0)
[2020-06-26 01:21] LABS: BUN Creatinine Ratio 18.3 (10-20); Calcium 8.3 mg/dl (8.5-10.1); Creatinine Clr Calc Pharmacy 29.7 ml/min; Est GFR (African American) 37.7; Est GFR (Non-African American) 32.5; Magnesium 1.8 mg/dl (1.8-2.4); Potassium 3.5 mmol/L (3.5-5.1)
[2020-06-26] MEDS ORDERED: LACTATED RINGER'S 1,000 ML IV ONE (05:53)
[2020-06-26] MEDS ORDERED: LACTATED RINGER'S 1,000 ML IV SCH (06:30)
[2020-06-26] MEDS ORDERED: MAGNESIUM SULFATE / D5W 1 GM/100 ML BAG IV ONE (06:30)
--- NOTE | 2020-06-26 07:42 | XRay Report ---
XR chest 1V portable HISTORY: Hypoxia. COMPARISON: Chest 06/24/2020. FINDINGS: There are low lung volumes. Bibasilar linear densities likely represent subsegmental atelec tasis. This remains unchanged. No new focal lung consolidations to suggest pneumonia. Prominence of i nterstitial markings, unchanged. No evidence for overt edema. There is a tortuous thoracic aorta. The heart is normal in size. No pneumothorax. IMPRESSION: No significant change compared to the prior study. No acute process. ACT 112: Negative or not required by law. Electronically signed by: Dakota Cueva M.D. 06/26/2020 7:41 AM
[2020-06-26 07:44] LABS: Hematocrit (blood only) 34.5 % (37-47); Hemoglobin 11.4 g/dL (12.0-16.0); Mean Corpuscular Hemoglobin 31.3 pg (25-34); Mean Corpuscular Volume 94.8 fL (80-100); Mean Platelet Volume 9.7 fL (7.4-10.4); Platelet Count 190 K/uL (130-400); RDW Coefficient of Variation 12.9 % (11.5-14.5); RDW Standard Deviation 44.7 fL (36.4-46.3); Red Blood Count 3.64 M/uL (4.2-5.4); White Blood Count 5.92 K/uL (4.8-10.8)
[2020-06-26 08:08] LABS: BUN Creatinine Ratio 18.3 (10-20); Calcium 8.9 mg/dl (8.5-10.1); Creatinine Clr Calc Pharmacy 30.9 ml/min; Est GFR (African American) 39.6; Est GFR (Non-African American) 34.2; Potassium 3.6 mmol/L (3.5-5.1)
[2020-06-26] MEDS: GABAPENTIN 600 MG TAB PO SCH ×4 (09:44→20:39)
[2020-06-26] MEDS: PANTOprazole 40 MG TAB PO SCH ×2 (09:44→20:39)
[2020-06-26] MEDS: MULTIVITAMIN TAB PO SCH (09:45)
[2020-06-26] MEDS: POLYETHYLENE (MIRALAX) 17 GM PACK PO SCH (09:45)
[2020-06-26] MEDS: CALCIUM 600MG + VIT D 400 IU TAB PO SCH ×2 (09:45→20:39)
[2020-06-26] MEDS: ASPIRIN 81 MG ECTAB PO SCH (09:45)
[2020-06-26] MEDS: DOCUSATE SODIUM 100 MG CAP PO SCH ×2 (09:45→20:39)
[2020-06-26] MEDS: CALCITRIOL 0.25 MCG CAPSULE PO SCH (09:46)
[2020-06-26] MEDS: MAGNESIUM OXIDE 400 MG TAB PO SCH (09:46)
[2020-06-26] MEDS: DULoxetine HCL 60 MG CAP PO SCH (09:46)
[2020-06-26] MEDS: DORZOLAMIDE/TIMOLOL 22.3/6.8MG/ML 10 ML BTL OPB SCH ×2 (09:47→20:40)
[2020-06-26] MEDS: cefTRIAXone SODIUM 1,000 MG in DEXTROSE 5% 50 ML IV SCH (09:50)
[2020-06-26] MEDS: ACETAMINOPHEN 500 MG TAB PO PRN (13:24)
[2020-06-26] MEDS ORDERED: bisacodyL 10 MG SUPP PR STA (15:08)
[2020-06-26] MEDS ORDERED: bisacodyL 10 MG SUPP PR PRN (20:17)
--- NOTE | 2020-06-26 20:17 | Hospitalist Progress Note ---
Date of Service June 26, 2020 Assessment & Plan (1) Hydronephrosis with ureteral calculus: Present on admission with worsening abdominal pain associated with back pain CT abd/pelvis with 4 mm obstructive calculus protruding from the right vesicoureteral junction. This causes mild to moderate right hydroureteronephrosis Urology on board that recommended conservative management since pt passed small stone fragment this morning with additional debris in strainer KUB this morning showed no calcifications are seen projecting over either kidney or along the course of the ureters. Stone was sent for analysis Currently denies any pain Continue with hydration and supportive care. No acute intervention indicated at this time as per Urology Follow up with urology outpatient Clinically stable (2) Urinary tract infection: Urine cx positive for gram negative bacilli Continue IV Rocephin for now Will transition PO abx on discharge (3) Acute kidney injury superimposed on chronic kidney disease: Cr elevated at 1.81 (baseline Cr~ 1) in setting of obstructing ureteral stone Creatinine bumpep from 1.3 to 1.5 Continue gentle hydration x1L Continue monitor BMP (4) Constipation: Gaseous distention of the right colon with moderate fecal retention Continue Colace Will add dulcolax [place] (5) HTN (hypertension): Continue to hold losartan in setting of MONE BP stable (6) GERD (gastroesophageal reflux disease): Continue PPI (7) Neuropathy: Continue gabapentin (8) Dyslipidemia: Continue statin DVT Ppx: SCDs for now Code status: FULL PCP: Jolene Dispo: Possible discharge tomorrow Admission and Anticipated Discharge Date Admission Date: June 24, 2020 Subjective Pt was seen and examined for follow up of low back pain from renal stone Lying in bed with no distress, watching TV Pt said that she feels bloating She said that she has not a good bowel movement for about 1 week She said that she had very small BM Last night she was placed on oxygen due to SOB Currently she said that her breathing is fine She would prefer to go home tomorrow Denies any chest pain, palpitation and fever Review of Systems Review of Systems: All systems reviewed & are unremarkable except as noted in Subjective Physical Exam Physical Exam: General- No acute distress Head- atraumatic Eyes- PERRL, EOMI, ENT- oropharynx clear Neck- supple, no JVD Lungs- clear to auscultation Heart- regular rhythm; no murmur Abdomen- normal bowel sounds, soft, nontender Extremities- no calf tenderness Neuro- alert, oriented x 3; PERRL, EOMI; no facial palsy; no dysarthria Skin- warm & dry Results & Data Results & Data ([facility]) Vital Signs (Past 12 Hours) Vital Signs Temp Pulse Resp BP Pulse Ox 06/26/20 15:51 36.8 C 77 16 129/54 L 95 (1) Urinary tract infection Hematuria presence: with hematuria Urinary tract infection type: site unspecified Qualified Code(s): N39.0 - Urinary tract infection, site not specified; R31.9 - Hematuria, unspecified (2) Constipation Constipation type: unspecified constipation type Qualified Code(s): K59.00 - Constipation, unspecified
[2020-06-26] MEDS: LATANOPROST 0.005% OP SOLN 2.5 ML BTL OP SCH (20:39)
[2020-06-26] MEDS: TAMSULOSIN HCL 0.4 MG CAP PO SCH (20:39)
[2020-06-26] MEDS: SIMVASTATIN 40 MG TAB PO SCH (20:39)
[2020-06-27] MEDS: ACETAMINOPHEN 500 MG TAB PO PRN ×2 (01:11→08:45)
[2020-06-27 06:25] LABS: Hematocrit (blood only) 36.2 % (37-47); Hemoglobin 11.8 g/dL (12.0-16.0); Mean Corpuscular Hemoglobin 30.6 pg (25-34); Mean Corpuscular Hgb Conc 32.6 g/dL (32-36); Mean Platelet Volume 9.8 fL (7.4-10.4); Platelet Count 209 K/uL (130-400); RDW Coefficient of Variation 12.8 % (11.5-14.5); RDW Standard Deviation 44.1 fL (36.4-46.3); Red Blood Count 3.85 M/uL (4.2-5.4); White Blood Count 5.73 K/uL (4.8-10.8)
[2020-06-27 06:59] LABS: BUN Creatinine Ratio 22.1 (10-20); Calcium 9.1 mg/dl (8.5-10.1); Est GFR (African American) 60.6; Est GFR (Non-African American) 52.3; Potassium 3.2 mmol/L (3.5-5.1)
[2020-06-27] MEDS ORDERED: hydrALAZINE HCL 25 MG TAB PO STA (07:40)
[2020-06-27] MEDS ORDERED: POTASSIUM CHLORIDE CRTAB 20 MEQ TABCR PO STA (07:41)
--- NOTE | 2020-06-27 07:43 | Hospitalist Progress Note ---
Date of Service June 27, 2020 Assessment & Plan (1) Hydronephrosis with ureteral calculus: Present on admission with worsening abdominal pain associated with back pain CT abd/pelvis with 4 mm obstructive calculus protruding from the right vesicoureteral junction. This causes mild to moderate right hydroureteronephrosis Urology consulted - recommended conservative management since pt passed small stone fragment with additional debris in strainer Repeat KUB showed no calcifications projecting over either kidney or along the course of the ureters. Stone was sent for analysis Currently denies any pain Continued with hydration and supportive care. No acute intervention indicated at this time as per Urology Follow up with urology outpatient Clinically stable (2) Urinary tract infection: Urine cx positive for E.coli , pansensitive Continued IV Rocephin while inpt Will transition PO abx on discharge (3) Acute kidney injury superimposed on chronic kidney disease: Cr elevated at 1.81 (baseline Cr~ 1) in setting of obstructing ureteral stone Creatinine bumpep from 1.3 to 1.5 Continue gentle hydration x1L Continue monitor BMP Resolved, current Cr 1.0 (4) Constipation: Gaseous distention of the right colon with moderate fecal retention Continue Colace added dulcolax [place] (5) HTN (hypertension): Continued to hold losartan in setting of MONE Resume on DC (6) GERD (gastroesophageal reflux disease): Continue PPI (7) Neuropathy: Continue gabapentin (8) Dyslipidemia: Continue statin DVT Ppx: SCDs for now Code status: FULL PCP: Dr. Fernández Dispo: discharge home today Admission and Anticipated Discharge Date Admission Date: June 24, 2020 Subjective Pt was seen and examined for follow up of low back pain from renal stone Lying in bed in no distress She did pass small fragments of renal stone Currently denies any fevers, chills, chest pain, shortness of breath, abdominal pain, back pain Review of Systems Review of Systems: All systems reviewed & are unremarkable except as noted in HPI & below Constitutional: no fever and no chills Respiratory: no cough and no dyspnea Cardiovascular: no chest pain and no palpitations Gastrointestinal: no abdominal pain, no nausea and no vomiting Physical Exam Physical Exam: General-elderly female, sitting up in bed, in no acute distress Head- atraumatic Eyes- PERRL, EOMI, ENT- oropharynx clear Neck- supple, no JVD Lungs- clear to auscultation Heart- regular rhythm; no murmur Abdomen- normal bowel sounds, soft, nontender, obese Extremities- no calf tenderness, moves extremities Neuro- alert, oriented x 3; PERRL, EOMI; no facial palsy; no dysarthria Skin- warm & dry Results & Data Results & Data ([facility]) Vital Signs (Past 12 Hours) Vital Signs Temp Pulse Resp BP BP Pulse Ox 06/27/20 07:30 80 18 198/86 H 92 06/27/20 07:06 36.9 C 78 18 179/95 H 183/89 H 91 06/26/20 22:42 37.1 C 79 20 130/72 92 Laboratory Results 06/27/20 06/27/20 06/26/20 Range/Units 05:21 05:21 07:29 WBC 5.73 (4.8-10.8) K/uL RBC 3.85 L (4.2-5.4) M/uL Hgb 11.8 L (12.0-16.0) g/dL Hct 36.2 L (37-47) % MCV 94.0 (80-100) fL MCH 30.6 (25-34) pg MCHC 32.6 (32-36) g/dL RDW Std Deviation 44.1 (36.4-46.3) fL RDW Coeff of Didi 12.8 (11.5-14.5) % Plt Count 209 (130-400) K/uL MPV 9.8 (7.4-10.4) fL Sodium 142 140 (136-145) mmol/L Potassium 3.2 L 3.6 (3.5-5.1) mmol/L Chloride 105 103 (98-107) mmol/L Carbon Dioxide 35 H 33 H (21-32) mmol/L Anion Gap 2.0 L 4.0 (3-11) BUN 23 H 27 H (7-18) mg/dl Creatinine 1.02 1.45 H (0.6-1.2) mg/dl Est Cr Clr Drug Dosing 44.0 30.9 ml/min Est GFR ( Amer) 60.6 39.6 Est GFR (Non-Af Amer) 52.3 34.2 BUN/Creatinine Ratio 22.1 H 18.3 (10-20) Glucose 118 H 110 H (70-99) mg/dl Calcium 9.1 8.9 (8.5-10.1) mg/dl 06/26/20 Range/Units 07:29 WBC 5.92 (4.8-10.8) K/uL RBC 3.64 L (4.2-5.4) M/uL Hgb 11.4 L (12.0-16.0) g/dL Hct 34.5 L (37-47) % MCV 94.8 (80-100) fL MCH 31.3 (25-34) pg MCHC 33.0 (32-36) g/dL RDW Std Deviation 44.7 (36.4-46.3) fL RDW Coeff of Didi 12.9 (11.5-14.5) % Plt Count 190 (130-400) K/uL MPV 9.7 (7.4-10.4) fL Sodium (136-145) mmol/L Potassium (3.5-5.1) mmol/L Chloride (98-107) mmol/L Carbon Dioxide (21-32) mmol/L Anion Gap (3-11) BUN (7-18) mg/dl Creatinine (0.6-1.2) mg/dl Est Cr Clr Drug Dosing ml/min Est GFR ( Amer) Est GFR (Non-Af Amer) BUN/Creatinine Ratio (10-20) Glucose (70-99) mg/dl Calcium (8.5-10.1) mg/dl Medications Administered Current Inpatient Medications Acetaminophen (Acetaminophen 500 Mg Tab) 1,000 mg PO Q8H PRN PRN Reason: Pain or Fever Stop: 07/24/20 15:53 Last Admin: 06/27/20 01:11 Dose: 1,000 mg Documented by: Aspirin (Aspirin 81 Mg Ectab) 81 mg PO [facility] Stop: 07/25/20 08:59 Last Admin: 06/26/20 09:45 Dose: 81 mg Documented by: Baclofen (Baclofen 10 Mg Tab) 10 mg PO TID PRN PRN Reason: Muscle Pain Stop: 07/24/20 15:17 Bisacodyl (Bisacodyl 10 Mg Supp) 10 mg NC DAILY PRN PRN Reason: Constipation Stop: 07/26/20 20:16 Calcitriol (Calcitriol 0.25 Mcg Capsule) 1 mcg PO [facility] Stop: 07/25/20 08:59 Last Admin: 06/26/20 09:46 Dose: 1 mcg Documented by: Docusate Sodium (Docusate Sodium 100 Mg Cap) 100 mg PO BID [facility] Stop: 07/24/20 20:59 Last Admin: 06/26/20 20:39 Dose: 100 mg Documented by: Dorzolamide/Timolol (Dorzolamide/Timolol 22.3/6.8mg/Ml 10 Ml Btl) 1 drops OPB BID [facility] Stop: 07/24/20 20:59 Last Admin: 06/26/20 20:40 Dose: 1 drops Documented by: Duloxetine HCl (Duloxetine Hcl 60 Mg Cap) 60 mg PO DAILY [facility] Stop: 07/25/20 08:59 Last Admin: 06/26/20 09:46 Dose: 60 mg Documented by: Gabapentin (Gabapentin 600 Mg Tab) 600 mg PO QID [facility] Stop: 07/24/20 16:59 Last Admin: 06/26/20 20:39 Dose: 600 mg Documented by: Ceftriaxone Sodium 1,000 mg/ (Dextrose) 50 mls @ 100 mls/hr IV Q24H [facility]; Protocol Stop: 07/05/20 08:59 Last Infusion: 06/26/20 10:27 Dose: Infused Documented by: Latanoprost (Latanoprost 0.005% Op Soln 2.5 Ml Btl) 1 drops OP HS [facility] Stop: 07/24/20 20:59 Last Admin: 06/26/20 20:39 Dose: 1 drops Documented by: Losartan Potassium (Losartan Potassium 50 Mg Tab) 100 mg PO QAM [facility] Stop: 07/25/20 08:59 Magnesium Oxide (Magnesium Oxide 400 Mg Tab) 400 mg PO QAM [facility] Stop: 07/25/20 08:59 Last Admin: 06/26/20 09:46 Dose: 400 mg Documented by: Multivitamins (Multivitamin Tab) 1 tab PO QAM [facility] Stop: 07/25/20 08:59 Last Admin: 06/26/20 09:45 Dose: 1 tab Documented by: Multivitamins/Minerals (Calcium 600mg + Vit D 400 Iu Tab) 1 tab PO BID [facility] Stop: 07/24/20 20:59 Last Admin: 06/26/20 20:39 Dose: 1 tab Documented by: Ondansetron HCl (Ondansetron Inj 2 Mg/Ml 2 Ml Vial) 4 mg IV Q6H PRN PRN Reason: Nausea Stop: 07/24/20 15:22 Last Admin: 06/24/20 17:49 Dose: 4 mg Documented by: Oxycodone HCl (Oxycodone Hcl Ir 5 Mg Tab (Immediate Release)) 5 mg PO Q6H PRN PRN Reason: Pain Stop: 07/08/20 15:53 Last Admin: 06/25/20 13:47 Dose: 5 mg Documented by: Pantoprazole Sodium (Pantoprazole 40 Mg Tab) 40 mg PO BID [facility] Stop: 07/24/20 20:59 Last Admin: 06/26/20 20:39 Dose: 40 mg Documented by: Polyethylene Glycol (Polyethylene (Miralax) 17 Gm Pack) 17 gm PO DAILY PRN PRN Reason: Constipation Stop: 07/24/20 15:22 Polyethylene Glycol (Polyethylene (Miralax) 17 Gm Pack) 17 gm PO DAILY [facility] Stop: 07/25/20 08:59 Last Admin: 06/26/20 09:45 Dose: 17 gm Documented by: Simvastatin (Simvastatin 40 Mg Tab) 40 mg PO PM [facility] Stop: 07/24/20 20:59 Last Admin: 06/26/20 20:39 Dose: 40 mg Documented by: Tamsulosin HCl (Tamsulosin Hcl 0.4 Mg Cap) 0.4 mg PO HS [facility] Stop: 07/24/20 20:59 Last Admin: 06/26/20 20:39 Dose: 0.4 mg Documented by: (1) Urinary tract infection Hematuria presence: with hematuria Urinary tract infection type: site unspecified Qualified Code(s): N39.0 - Urinary tract infection, site not specified; R31.9 - Hematuria, unspecified (2) Constipation Constipation type: unspecified constipation type Qualified Code(s): K59.00 - Constipation, unspecified
[2020-06-27] MEDS: CALCIUM 600MG + VIT D 400 IU TAB PO SCH (08:46)
[2020-06-27] MEDS: DORZOLAMIDE/TIMOLOL 22.3/6.8MG/ML 10 ML BTL OPB SCH (08:46)
[2020-06-27] MEDS: DULoxetine HCL 60 MG CAP PO SCH (08:46)
[2020-06-27] MEDS: DOCUSATE SODIUM 100 MG CAP PO SCH (08:46)
[2020-06-27] MEDS: ASPIRIN 81 MG ECTAB PO SCH (08:46)
[2020-06-27] MEDS: PANTOprazole 40 MG TAB PO SCH (08:47)
[2020-06-27] MEDS: MAGNESIUM OXIDE 400 MG TAB PO SCH (08:47)
[2020-06-27] MEDS: CALCITRIOL 0.25 MCG CAPSULE PO SCH (08:47)
[2020-06-27] MEDS: GABAPENTIN 600 MG TAB PO SCH ×2 (08:47→12:04)
[2020-06-27] MEDS: MULTIVITAMIN TAB PO SCH (08:47)
[2020-06-27] MEDS: POLYETHYLENE (MIRALAX) 17 GM PACK PO SCH (08:47)
[2020-06-27] MEDS: cefTRIAXone SODIUM 1,000 MG in DEXTROSE 5% 50 ML IV SCH (08:48)
--- NOTE | 2020-06-27 12:08 | Discharge Summary ---
Date of Service June 27, 2020 Admission HPI Per Admitting Provider This is a 79-year-old female with PMH of hypertension, CKD 3, PAD and other medical problems listed below who presents with progressive abdominal and back pain for the past 3 days. Patient describes pain as intermittent and sharp, originating in right lower abdomen with radiation toward central abdomen as well as right flank and lower back. Pain exacerbated with movement and to the touch. Denies any alleviating factors. Denies any fever but endorses chills for the past 2 days. Some nausea but denies vomiting. Also with increased urgency and difficulty emptying bladder. Denies any dysuria, pyuria or hematuria. Has felt constipated lately, having small amounts of soft stool but not had a normal size bowel movement in days. Denies any medication changes. No personal history of kidney stones. Admission Exam Per Admitting Provider General Appearance: WD/WN, vitals as above, NAD, sitting up in bed, pleasant, conversing easily Head: normocephalic, atraumatic Eyes: normal inspection, PERRL, conjunctivae normal, anicteric sclerae ENT: external ear and nose normal, oropharynx normal Neck: normal visual inspection, trachea midline, no thyromegaly Respiratory: normal respiratory effort, lungs clear to auscultation, no wheeze, rales, rhonchi. No accessory muscle use Cardiovascular: regular rate, rhythm, no murmur, normal peripheral pulses, no BLE edema. Vessels: no JVD Chest: normal inspection of chest Abdomen/GI: hypoactive bowel sounds, soft but TTP in RLQ wrapping around to flank, no hepatosplenomegaly : R CVA TTP Extremities/Musculoskeletal: no cyanosis or clubbing, extremities motor strength 5/5 Neurologic: PERRL, EOMI, accommodation nl, no face palsy, no dysarthria, CN's II-XI intact bilaterally and moves all extremities Psychiatric: A+Ox3, euthymic affect Skin: no rashes, normal color, warm/dry Principal Diagnosis Hydronephrosis with ureteral calculus UTI MONE Discharge Exam General-elderly female, sitting up in bed, in no acute distress Head- atraumatic Eyes- PERRL, EOMI, ENT- oropharynx clear Neck- supple, no JVD Lungs- clear to auscultation Heart- regular rhythm; no murmur Abdomen- normal bowel sounds, soft, nontender, obese Extremities- no calf tenderness, moves extremities Neuro- alert, oriented x 3; PERRL, EOMI; no facial palsy; no dysarthria Skin- warm & dry Discharge Data Allergies Allergy/AdvReac Type Severity Reaction Status Date / Time No Known Allergies Allergy Verified 06/24/20 14:46 Consultations 06/24/20 13:59 ED Decision to Admit Stat 06/24/20 15:23 Consult Urology Routine Ordered Studies 06/24/20 12:08 CT abd pelvis wo con Stat IMPRESSION: 1. There is a 4 mm obstructive calculus protruding from the right vesicoureteral junction. This causes mild to moderate right hydroureteronephrosis. 2. No additional calculi are identified in either kidney. 3. There is gaseous distention of the right colon with moderate fecal retention. 4. No bowel obstruction is seen. 5. Mild cardiomegaly. 6. Fibroid uterus. Hospital Course (1) Hydronephrosis with ureteral calculus: Present on admission with worsening abdominal pain associated with back pain CT abd/pelvis with 4 mm obstructive calculus protruding from the right vesicoureteral junction. This causes mild to moderate right hydroureteronephrosis Urology consulted - recommended conservative management since pt passed small stone fragment with additional debris in strainer Repeat KUB showed no calcifications projecting over either kidney or along the course of the ureters. Stone was sent for analysis Currently denies any pain Continued with hydration and supportive care. No acute intervention indicated at this time as per Urology Follow up with urology outpatient Clinically stable (2) Urinary tract infection: Urine cx positive for E.coli , pansensitive Continued IV Rocephin while inpt Will transition PO abx on discharge - cefuroxime 250 mg BID for next 4 days (3) Acute kidney injury superimposed on chronic kidney disease: Cr elevated at 1.81 (baseline Cr~ 1) in setting of obstructing ureteral stone Creatinine bumpep from 1.3 to 1.5 Continue gentle hydration x1L Continue monitor BMP Resolved, current Cr 1.0 (06/27/20) (4) Constipation: Gaseous distention of the right colon with moderate fecal retention Continue Colace added dulcolax [place] (5) HTN (hypertension): Continued to hold losartan in setting of MONE Resume on DC (6) GERD (gastroesophageal reflux disease): Continue PPI (7) Neuropathy: Continue gabapentin (8) Dyslipidemia: Continue statin PCP: Dr. Fernández Total Time Total Time Spent Total Time Spent (In Minutes): 35 Total Time Includes: Examination of the Patient, Discharge Planning, Medication Reconciliation and Communication With Other Providers Discharge Plan Discharge Items Patient Disposition: Home - Self-Care Reason For Visit: OBSTRUCTING URETERAL STONE Discharge Diagnosis: Hydronephrosis with ureteral calculus UTI MONE Condition on Discharge: Good Activity: Per Instructions section Non-emergency contact: Primary Care Provider Call non-emergency contact if: you have any medication questions and your symptoms worsen Follow-up/Referrals: Hernan Fernández MD [Primary Care Provider] - (Date & Time 07/02/2020 11:00 AM Provider Hernan Fernández III, MD Department [facility] ) Diet: Heart Healthy Addtl Attending Provider Instructions: Follow-up with your primary care doctor, the appointment was scheduled for you for July 02. Take antibiotic, cefuroxime, for next 4 days as prescribed. Follow-up with urology, you will be contacted about the appointment. Pending Studies at Discharge: Yes Studies:: Renal stone Analysis Stand-Alone Forms: [facility] Lomography, Smoking Cessation Medications and DC Order Prescriptions: New cefuroxime axetil 250 mg tablet 250 mg PO BID 4 Days Qty: 8 RF: 0 Continued latanoprost [Xalatan] 0.005 % drops 1 drp ophthalmic (eye) HS RF: 0 indapamide 2.5 mg tablet 2.5 mg PO DAILY RF: 0 ibuprofen 200 mg Capsule 400 mg PO QID PRN (Reason: Pain) RF: 0 baclofen 10 mg Tablet 10 mg PO TID PRN (Reason: Muscle Pain) RF: 0 calcitriol [Rocaltrol] 0.5 mcg capsule 1 mcg PO QAM RF: 0 dorzolamide-timolol [Cosopt] 22.3-6.8 mg/mL drops 1 drp OPB BID RF: 0 duloxetine [Cymbalta] 60 mg capsule,delayed release(DR/EC) 60 mg PO DAILY RF: 0 losartan 100 mg Tablet 100 mg PO QAM RF: 0 calcium carbonate 500 mg calcium (1,250 mg) Tablet 500 mg PO BID RF: 0 gabapentin 300 mg Capsule 600 mg PO QID RF: 0 multivitamin Tablet 1 tab PO QAM RF: 0 simvastatin 40 mg Tablet 40 mg PO PM RF: 0 magnesium oxide 250 mg magnesium Tablet 400 mg PO QAM RF: 0 omeprazole 20 mg Tablet,Delayed Release (Dr/Ec) 20 mg PO BID RF: 0 aspirin 325 mg Tablet 325 mg PO Q6H PRN (Reason: Pain) RF: 0 aspirin [Aspirin Low Dose] 81 mg tablet,delayed release (DR/EC) 81 mg PO QAM RF: 0 Discharge Orders: Discharge Order (Routine); Ordered 06/27/20 Ordered By: Wilfrido Collins Admission Data Admit Date/Time: 06/24/20 14:09 Attending Provider: Wilfrido Colilns Admit Provider: Gino Viera Primary Care Provider: Hernan Fernández Other Providers: Gino Viera ; Misa Owens
[2020-06-29 00:41] LABS: Component 2 DNR; Source URETER STONE
== END 2020-06-27 15:49 | disposition home or self-care (01) | DRG 690 ==
LOC: ED 11:25 → SUATTDRO 14:09 → 3W 14:09

== ENCOUNTER 2022-09-04 14:17 | Inpatient (IN) ==
[2022-09-04] MEDS ORDERED: ALBUT/IPRATROP 3MG/0.5MG NEB 3 ML VIAL NEB STA (14:29)
--- NOTE | 2022-09-04 14:34 | Emergency Department Note ---
Impression & Plan Acute bronchitis, Hypoxia ED Provider Note NAME: SONNY REEVES AGE: 81 SEX: F : 1940 ARRIVES VIA: Walk-In INFORMANT: Patient, ED PROVIDER(S): Leno Ruth DO CHIEF COMPLAINT: Difficulty breathing HPI: The patient is an 81-year-old female who presented to the emergency department for an evaluation of difficulty breathing. The patient noticed difficulty breathing over the course the last 48 hours. She states that she started noticing symptoms yesterday and at night her symptoms became much worse. She was up coughing. She had to sit in a chair. She denies having any chest pain. She denies having any lower extremity swelling. She has no hemoptysis. She has not been seen by her family doctor for the symptoms. She also notices rhinorrhea. She states that she had similar symptoms in the past with upper respiratory and sinus infection. The patient states her symptoms are worsened with exertion. She has not noted a fever. ROS: See above HPI for pertinent positives & negatives. A total of 10 systems reviewed and were otherwise negative. PAST MEDICAL HISTORY: See Below PAST SURGICAL HISTORY: See Below FAMILY HISTORY: See Below SOCIAL HISTORY: See Below HOME MEDICATIONS: See Below ALLERGIES: See Below VITALS: See Below PHYSICAL EXAMINATION: GENERAL: Patient is awake alert in no acute distress patient is resting comfortably and showing no signs of anxiety EYES: The conjunctivae are clear. The pupils are round and reactive. EARS, NOSE, MOUTH AND THROAT: The nose is without any evidence of any deformity. NECK: The neck is nontender and supple. RESPIRATORY: Diminished breath sounds are noted in the left lung field. There are scattered rales noted throughout the right. There is mild conversational dyspnea. CARDIOVASCULAR: Tachycardic and regular heart sounds were noted to auscultation. There is no definite murmur. GASTROINTESTINAL: The abdomen is soft. Abdomen is nontender. MUSCULOSKELETAL/EXTREMITIES: There is no evidence of gross deformity full range of motion is noted in the hips and shoulders. SKIN: Skin was warm and dry. There is trace pedal edema bilaterally. NEUROLOGIC: Patient is awake alert and oriented x3 MEDICAL DECISION MAKING: The patient is an 81-year-old female who presented to the emergency department for an evaluation of cough and difficulty breathing. The patient had diminished breath sounds. Her history and physical exam could be consistent with pneumonia. She was initially tachycardic. She was treated with bronchodilator as well as IV fluids. She was also treated with IV antibiotics. She does have a productive cough but no definite infiltrate was noted on chest x-ray. The patient was found to be hypoxic. Given her clinical findings I do feel the patient may be a better candidate for inpatient management of this respiratory illness. I discussed her condition with the on-call [employer] [facility]. They have agreed to evaluate the patient in the emergency department for further management and disposition. I discussed the patient's laboratory and radiographic studies with her. Triage Nursing notes reviewed. Prior medical records reviewed Vital Signs: reviewed and remarkable for tachycardia. Differential diagnosis: Reactive airway disease, pneumonia, pneumothorax, COPD, CHF, infections, cardiac ischemia, pulmonary embolism, musculoskeletal, gastrointestinal, as well as other pathologies. ER treatment provided: See below Diagnostics interpreted by me: ECG: EKG was obtained in the emergency department. My interpretation is sinus tachycardia at 102 bpm. PACs as well as PVCs were noted. There was no acute ST segment abnormalities noted. This was compared to a tracing from June 24, 2020. No significant changes were noted although the rate has increased. Cardiac Monitoring: An order was placed for continuous cardiac monitoring. The monitor shows a rate of 107 bpm with sinus tachycardia. Laboratory studies: As stated above and show below. Imaging studies: See below. Radiographic imaging was reviewed by myself Consultation(s): I discussed this case with Fani who is on-call for the [employer] [facility]. They will evaluate the patient in the emergency department. Past Med/Surg History Medical History Bilateral tinnitus Chronic pain both feet and legs Closed fracture of distal end of right fibula Dyslipidemia GERD (gastroesophageal reflux disease) Glaucoma H/O parathyroidectomy HTN (hypertension) Hyperlipidemia Migraine Neuropathy BOTH FEET AND LEGS Osteoporosis Vitamin D deficiency Surgical History H/O parathyroidectomy "09/26/13" History of back surgery lower Hx of bilateral cataract extraction Hx of cholecystectomy Family History Other Cancer Social History Smoking Status: Never smoker Tobacco Type: Cigarettes Do You Dip or Chew Tobacco: No; Hx Alcohol Use: No Hx Substance Use: No Preferred Language: Cymraes Communication Ability: Effective Billing Control Clerk Required: No Beliefs That Will Affect Care: None marital status: / Current Living Situation: Family Current Living Situation Comment: lives with grandson and granddaughter How many Children do You have: 2 Feels Safe at Home: Yes Assistive Devices: Walker Allergies Allergies Allergy/AdvReac Type Severity Reaction Status Date / Time No Known Allergies Allergy Verified 09/04/22 16:40 Home Meds Home Medications Medication Instructions Recorded Confirmed gabapentin 300 mg capsule 600 mg PO QID 05/03/18 09/04/22 magnesium oxide 400 mg PO QAM 05/03/18 09/04/22 multivitamin 1 tab PO QAM 05/03/18 09/04/22 omeprazole 20 mg tablet,delayed 20 mg PO BID 05/03/18 09/04/22 release calcitriol 0.5 mcg capsule 1 mcg PO QAM 06/01/18 09/04/22 (Rocaltrol) dorzolamide 22.3 mg-timolol 6.8 1 drp OPB BID 06/01/18 09/04/22 mg/mL eye drops (Cosopt) duloxetine 60 mg capsule,delayed 60 mg PO DAILY 06/01/18 09/04/22 release (Cymbalta) ibuprofen 200 mg capsule 400 mg PO QID PRN Pain 06/01/18 09/04/22 indapamide 2.5 mg tablet 2.5 mg PO DAILY 06/01/18 09/04/22 latanoprost 0.005 % eye drops 1 drp ophthalmic (eye) HS 06/01/18 09/04/22 (Xalatan) aspirin 81 mg tablet,delayed 81 mg PO QAM 06/24/20 09/04/22 release (Ed Low Dose Aspirin) amlodipine 2.5 mg tablet 2.5 mg PO DAILY 09/04/22 09/04/22 rosuvastatin 10 mg tablet 10 mg PO HS 09/04/22 09/04/22 Results & Data (ED) Vital Signs Vital Signs - 24 hr 09/04/22 14:19 09/04/22 15:00 09/04/22 15:30 Temperature 36.1 C L Temperature Source Temporal Artery Scan Pulse Rate 125 H 120 H 112 H Pulse Rate from SpO2 Sensor 118 H 110 H Respiratory Rate 20 17 18 Respiratory Effort / Characteristics Non-Labored Spontaneous Respiratory Depth Normal Respiratory Pattern Regular Blood Pressure 100/65 108/76 111/73 Blood Pressure Mean 76 86 85 Pulse Oximetry 92 87 L 97 Oxygen Delivery Method Room Air Nasal Cannula Oxygen Flow Rate 2 Sepsis Recent Fever Within 48 Hours No Sepsis New/Unexplained Change in Mental Status No Sepsis Action Taken by Nursing No Action Required 09/04/22 16:00 Temperature Temperature Source Pulse Rate 107 H Pulse Rate from SpO2 Sensor 113 H Respiratory Rate 19 Respiratory Effort / Characteristics Respiratory Depth Respiratory Pattern Blood Pressure 130/84 Blood Pressure Mean 99 Pulse Oximetry 93 Oxygen Delivery Method Oxygen Flow Rate 2 Sepsis Recent Fever Within 48 Hours Sepsis New/Unexplained Change in Mental Status Sepsis Action Taken by Halfway Medications Current Medication List: was personally reviewed by me Laboratory Data Attestation: I reviewed the patient's lab results. 09/04/22 14:45 09/04/22 14:45 Lab Results 09/04/22 09/04/22 09/04/22 Range/Units 14:45 14:45 14:45 WBC 6.76 (4.8-10.8) K/ul RBC 5.26 (4.20-5.40) M/uL Hgb 16.0 (12.0-16.0) g/dl Hct 47.1 H (37.0-47.0) % MCV 89.5 (80.0-100.0) fL MCH 30.4 (25.0-34.0) pg MCHC 34.0 (32.0-36.0) g/dL RDW Std Deviation 43.2 (36.4-46.3) fL RDW Coeff of Didi 13.2 (11.5-14.5) % Plt Count 234 (130-400) K/uL MPV 9.8 (9.4-12.4) fL Immature Gran % (Auto) 0.4 % Neut % (Auto) 60.6 % Lymph % (Auto) 29.1 % [place] % (Auto) 7.7 % Eos % (Auto) 1.2 % Baso % (Auto) 1.0 % Neut # (Auto) 4.09 (1.40-6.50) K/uL Lymph # (Auto) 1.97 (1.2-3.4) K/uL [place] # (Auto) 0.52 (0.11-0.59) K/uL Eos # (Auto) 0.08 (0-0.50) K/uL Baso # (Auto) 0.07 (0-0.2) K/uL Immature Gran # (Auto) 0.03 (0.01-0.20) K/uL PT 11.1 (9.0-12.0) Seconds INR 1.0 (0.9-1.1) APTT 28.1 (21.0-31.0) Seconds PTT Ratio 1.0 Sodium 141 (136-145) mmol/L Potassium 3.2 L (3.5-5.1) mmol/L Chloride 99 (98-107) mmol/L Carbon Dioxide 31 (21-32) mmol/L Anion Gap 11 (3-11) BUN 31 H (6-23) mg/dl Creatinine 1.12 (0.6-1.2) mg/dl Est Cr Clr Drug Dosing 36.7 ml/min Est GFR ( Amer) 53.4 ml/min Est GFR (Non-Af Amer) 46.0 ml/min BUN/Creatinine Ratio 27.7 H (10-20) Glucose 144 H (70-99(Fasting)) mg/dl Calcium 9.5 (8.6-10.3) mg/dl Magnesium 1.9 (1.7-2.4) mg/dl Total Bilirubin 0.6 (0.2-1.0) mg/dl AST 29 (13-39) U/L ALT 20 (7-52) U/L Alkaline Phosphatase 64 (34-104) U/L Troponin I High Sens 8.4 (0-14) pg/ml C-Reactive Protein 1.57 H (0-0.5) mg/dl Total Protein 7.4 (6.0-8.3) gm/dl Albumin 4.3 (3.4-5.0) gm/dl Globulin 3.1 (2.5-4.0) gm/dl Albumin/Globulin Ratio 1.4 (0.9-2) Procalcitonin (0-0.5) ng/ml Adenovirus (PCR) (NotDetected) B. pertussis DNA (PCR) (NotDetected) B.parapertussis DNA PCR (NotDetected) C. pneumoniae DNA (PCR) (NotDetected) Coronavirus OC43 (PCR) (NotDetected) Coronavirus HKU1 (PCR) (NotDetected) Coronavirus 229E (PCR) (NotDetected) SARS-CoV-2 (PCR) (NotDetected) Coronavirus NL63 (PCR) (NotDetected) Human Metapneumovir PCR (NotDetected) Influenza Type A (PCR) (NotDetected) Influenza Type B (PCR) (NotDetected) M. pneumoniae (PCR) (NotDetected) Parainfluenza 1 (PCR) (NotDetected) Parainfluenza 2 (PCR) (NotDetected) Parainfluenza 3 (PCR) (NotDetected) Parainfluenza 4 (PCR) (NotDetected) RSV (PCR) (NotDetected) Entero/Rhino (PCR) (NotDetected) 09/04/22 09/04/22 Range/Units 14:45 14:45 WBC (4.8-10.8) K/ul RBC (4.20-5.40) M/uL Hgb (12.0-16.0) g/dl Hct (37.0-47.0) % MCV (80.0-100.0) fL MCH (25.0-34.0) pg MCHC (32.0-36.0) g/dL RDW Std Deviation (36.4-46.3) fL RDW Coeff of Didi (11.5-14.5) % Plt Count (130-400) K/uL MPV (9.4-12.4) fL Immature Gran % (Auto) % Neut % (Auto) % Lymph % (Auto) % [place] % (Auto) % Eos % (Auto) % Baso % (Auto) % Neut # (Auto) (1.40-6.50) K/uL Lymph # (Auto) (1.2-3.4) K/uL [place] # (Auto) (0.11-0.59) K/uL Eos # (Auto) (0-0.50) K/uL Baso # (Auto) (0-0.2) K/uL Immature Gran # (Auto) (0.01-0.20) K/uL PT (9.0-12.0) Seconds INR (0.9-1.1) APTT (21.0-31.0) Seconds PTT Ratio Sodium (136-145) mmol/L Potassium (3.5-5.1) mmol/L Chloride (98-107) mmol/L Carbon Dioxide (21-32) mmol/L Anion Gap (3-11) BUN (6-23) mg/dl Creatinine (0.6-1.2) mg/dl Est Cr Clr Drug Dosing ml/min Est GFR ( Amer) ml/min Est GFR (Non-Af Amer) ml/min BUN/Creatinine Ratio (10-20) Glucose (70-99(Fasting)) mg/dl Calcium (8.6-10.3) mg/dl Magnesium (1.7-2.4) mg/dl Total Bilirubin (0.2-1.0) mg/dl AST (13-39) U/L ALT (7-52) U/L Alkaline Phosphatase (34-104) U/L Troponin I High Sens (0-14) pg/ml C-Reactive Protein (0-0.5) mg/dl Total Protein (6.0-8.3) gm/dl Albumin (3.4-5.0) gm/dl Globulin (2.5-4.0) gm/dl Albumin/Globulin Ratio (0.9-2) Procalcitonin 0.05 (0-0.5) ng/ml Adenovirus (PCR) Not Detected (NotDetected) B. pertussis DNA (PCR) Not Detected (NotDetected) B.parapertussis DNA PCR Not Detected (NotDetected) C. pneumoniae DNA (PCR) Not Detected (NotDetected) Coronavirus OC43 (PCR) Not Detected (NotDetected) Coronavirus HKU1 (PCR) Not Detected (NotDetected) Coronavirus 229E (PCR) Not Detected (NotDetected) SARS-CoV-2 (PCR) Not Detected (NotDetected) Coronavirus NL63 (PCR) Not Detected (NotDetected) Human Metapneumovir PCR Not Detected (NotDetected) Influenza Type A (PCR) Not Detected (NotDetected) Influenza Type B (PCR) Not Detected (NotDetected) M. pneumoniae (PCR) Not Detected (NotDetected) Parainfluenza 1 (PCR) Not Detected (NotDetected) Parainfluenza 2 (PCR) Not Detected (NotDetected) Parainfluenza 3 (PCR) Not Detected (NotDetected) Parainfluenza 4 (PCR) Not Detected (NotDetected) RSV (PCR) Not Detected (NotDetected) Entero/Rhino (PCR) Not Detected (NotDetected) Administered Medications Discontinued Medications Albuterol (Albut/Ipratrop 3mg/0.5mg Neb 3 Ml Vial) 3 ml NEB NOW STA; Protocol Stop: 09/04/22 14:30 Last Admin: 09/04/22 14:55 Dose: 3 ml Documented By: MT Sodium Chloride (Nss) 500 mls @ 999 mls/hr IV .Q31M ONE Stop: 09/04/22 16:55 Last Admin: 09/04/22 17:07 Dose: 999 mls/hr Documented By: MT Ceftriaxone Sodium (Rocephin) 2,000 mg in 70 mls @ 140 mls/hr IV NOW STA Stop: 09/04/22 16:54 Last Admin: 09/04/22 17:07 Dose: 140 mls/hr Documented By: MT Potassium Chloride (Potassium Chloride Crtab 20 Meq Tabcr) 40 meq PO NOW STA Stop: 09/04/22 16:35 Last Admin: 09/04/22 17:07 Dose: 40 meq Documented By: MT Imaging Data Attestation: I personally reviewed and interpreted this imaging study as follows: My Impression: 1 view chest x-ray was obtained in the emergency department. There is no definite infiltrate, final report below. Radiologist's Impression: Chest X-Ray 09/04/22 14:29 XR chest 1V portable HISTORY: Dyspnea COMPARISON: Chest 06/26/2020. FINDINGS: No pneumothorax. No pleural effusions. Mild S-shaped scoliosis of the thoracolumbar spine again noted. There are degenerative changes within the shoulders. There are low lung volumes with a few bibasilar linear densities consistent with subsegmental atelectasis. Otherwise, no new focal lung consolidations to suggest a pneumonia. No evidence for pulmonary edema. There are calcifications within the aortic knob. The heart is normal in size. IMPRESSION: No significant change compared to the prior study. No acute process. ACT 112: Negative or not required by law. Electronically signed by: Dakota Cueva M.D. 09/04/2022 3:02 PM Discharge Plan Visit Data Chief Complaint: Illness Stated Complaint: COUGH,DEHYDRATED ED Provider: Leno Ruth Discharge Problem: Acute bronchitis, Hypoxia Patient Disposition: Being Evaluated by Hospitalist Forms Stand Alone Forms: My [facility] Prescriptions Prescriptions: No Action latanoprost [Xalatan] 0.005 % drops 1 drp ophthalmic (eye) HS indapamide 2.5 mg tablet 2.5 mg PO DAILY ibuprofen 200 mg Capsule 400 mg PO QID PRN (Reason: Pain) calcitriol [Rocaltrol] 0.5 mcg capsule 1 mcg PO QAM Rx Instructions: 2 TABS dorzolamide-timolol [Cosopt] 22.3-6.8 mg/mL drops 1 drp OPB BID duloxetine [Cymbalta] 60 mg capsule,delayed release(DR/EC) 60 mg PO DAILY gabapentin 300 mg Capsule 600 mg PO QID multivitamin Tablet 1 tab PO QAM magnesium oxide 250 mg magnesium Tablet 400 mg PO QAM omeprazole 20 mg Tablet,Delayed Release (Dr/Ec) 20 mg PO BID aspirin [Ed Low Dose Aspirin] 81 mg tablet,delayed release (DR/EC) 81 mg PO QAM amlodipine 2.5 mg tablet 2.5 mg PO DAILY rosuvastatin 10 mg tablet 10 mg PO HS Referrals Referrals: Hernan Fernández MD [Primary Care Provider] -
--- NOTE | 2022-09-04 15:04 | XRay Report ---
XR chest 1V portable HISTORY: Dyspnea COMPARISON: Chest 06/26/2020. FINDINGS: No pneumothorax. No pleural effusions. Mild S-shaped scoliosis of the thoracolumbar spine a gain noted. There are degenerative changes within the shoulders. There are low lung volumes with a fe w bibasilar linear densities consistent with subsegmental atelectasis. Otherwise, no new focal lung c onsolidations to suggest a pneumonia. No evidence for pulmonary edema. There are calcifications withi n the aortic knob. The heart is normal in size. IMPRESSION: No significant change compared to the prior study. No acute process. ACT 112: Negative or not required by law. Electronically signed by: Dakota Cueva M.D. 09/04/2022 3:02 PM
[2022-09-04 15:09] LABS: Basophils # (auto) 0.07 K/uL (0-0.2); Eosinophils # (auto) 0.08 K/uL (0-0.50); Eosinophils % (auto) 1.2 %; Hematocrit (blood only) 47.1 % (37.0-47.0); Immature Granulocytes # (auto) 0.03 K/uL (0.01-0.20); Immature Granulocytes % (auto) 0.4 %; Lymphocytes # (auto) 1.97 K/uL (1.2-3.4); Lymphocytes % (auto) 29.1 %; Mean Corpuscular Hemoglobin 30.4 pg (25.0-34.0); Mean Corpuscular Volume 89.5 fL (80.0-100.0); Mean Platelet Volume 9.8 fL (9.4-12.4); Monocytes # (auto) 0.52 K/uL (0.11-0.59); Monocytes % (auto) 7.7 %; Neutrophils # (auto) 4.09 K/uL (1.40-6.50); Neutrophils % (auto) 60.6 %; Platelet Count 234 K/uL (130-400); RDW Coefficient of Variation 13.2 % (11.5-14.5); RDW Standard Deviation 43.2 fL (36.4-46.3); Red Blood Count 5.26 M/uL (4.20-5.40); White Blood Count 6.76 K/ul (4.8-10.8)
[2022-09-04 15:27] LABS: Albumin Globulin Ratio 1.4 (0.9-2); Albumin Level 4.3 gm/dl (3.4-5.0); BUN Creatinine Ratio 27.7 (10-20); Bilirubin,Total 0.6 mg/dl (0.2-1.0); Calcium 9.5 mg/dl (8.6-10.3); Creatinine Clr Calc Pharmacy 36.7 ml/min; Est GFR (African American) 53.4 ml/min; Globulin 3.1 gm/dl (2.5-4.0); Magnesium 1.9 mg/dl (1.7-2.4); Potassium 3.2 mmol/L (3.5-5.1); Total Protein 7.4 gm/dl (6.0-8.3)
[2022-09-04 15:32] LABS: Troponin I High Sensitivity 8.4 pg/ml (0-14)
[2022-09-04 15:50] LABS: Partial Thromboplastin Time 28.1 Seconds (21.0-31.0); Prothrombin Time 11.1 Seconds (9.0-12.0)
[2022-09-04 16:03] LABS: Adenovirus PCR Not Detected (NotDetected); Bordetella parapertussis PCR Not Detected (NotDetected); Bordetella pertussis PCR Not Detected (NotDetected); Chlamydia pneumoniae PCR Not Detected (NotDetected); Coronavirus 229E PCR Not Detected (NotDetected); Coronavirus CoV-2 (COVID19)PCR Not Detected (NotDetected); Coronavirus HKU1 PCR Not Detected (NotDetected); Coronavirus NL63 PCR Not Detected (NotDetected); Coronavirus OC43PCR Not Detected (NotDetected); Human Metapneumovirus PCR Not Detected (NotDetected); Influenza A PCR Not Detected (NotDetected); Influenza B PCR Not Detected (NotDetected); Mycoplasma pneumoniae PCR Not Detected (NotDetected); Parainfluenza Virus 1 PCR Not Detected (NotDetected); Parainfluenza Virus 2 PCR Not Detected (NotDetected); Parainfluenza Virus 3 PCR Not Detected (NotDetected); Parainfluenza Virus 4 PCR Not Detected (NotDetected); Respiratory Syncytial VirusPCR Not Detected (NotDetected); Rhinovirus/Enterovirus PCR Not Detected (NotDetected)
[2022-09-04] MEDS ORDERED: cefTRIAXone SODIUM 2,000 MG/70 ML BAG IV STA (16:25)
[2022-09-04] MEDS ORDERED: SODIUM CHLORIDE 0.9% 500 ML IV ONE (16:25)
[2022-09-04] MEDS ORDERED: POTASSIUM CHLORIDE CRTAB 20 MEQ TABCR PO STA (16:34)
[2022-09-04] MEDS ORDERED: Patient's ALLERGY Info needs ENTERED SCH (16:45)
[2022-09-04 16:50] LABS: C Reactive Protein 1.57 mg/dl (0-0.5)
--- NOTE | 2022-09-04 17:55 | History & Physical Report ---
Date of Service September 04, 2022 Assessment & Plan (1) Acute bronchitis: (2) Hypoxia: (3) HTN (hypertension): (4) Dyslipidemia: (5) Neuropathy: (6) Osteoporosis: Plan This is an 81-year-old female who has significant past medical history of hypertension, hyperlipidemia, vitamin D deficiency, CKD stage III, chronic idiopathic peripheral neuropathy with significant ambulatory dysfunction at baseline, osteoporosis, history of hyperparathyroidism who presents to ED secondary to worsening URI symptoms x2 days. Acute lower URI Acute bronchitis Hypoxia admit to med tele supportive care for now gentle IVF x 1 L due to lack of appetite will cover with IV azithromycin 500mg x 3 days, or while inpatient nebs prn, incentive spirometry, testranon Porfirio scheduled PT/OT wean oxygen as able biofire negative sx likely viral but will cover for antibiotics for now Hypokalemia replete HTN continue amlodipine hold indapamide for now due to mild elevation in BUN and poor intake gentle IVF x 1 L consider restarting in a.m. if BP stable HLD continue statin Ambulatory dysfunction Freq falls Mostly wheel chair bound Idiopathic peripheral neuropathy continue gabapentin, cymbalta PT/OT fall prec Osteoporosis Hyperparathyroidism calcitriol Glaucoma continue eye gtts DVT ppx: SQ Heparin Dispo: med tele, pt/ot consult, likely to remain hospitalized 1-2 days, plan to return home with daughter FULL CODE PCP: Jolene Pt was seen and examined in collaboration with Dr. Farmer, please see addendum A total of 75 was spent coordinating, documenting, and providing care for this patient excluding time spent in the performance of separately billed services. This included personally viewing all current laboratories and imaging studies, medication reconciliation, outpatient chart review, and discussion with specialists. History of Present Illness Chief Complaint: URI sx x 2 days. Primary Care Provider: Hernan Fernández MD This is an 81-year-old female who has significant past medical history of hypertension, hyperlipidemia, vitamin D deficiency, CKD stage III, chronic idiopathic peripheral neuropathy with significant ambulatory dysfunction at baseline, osteoporosis, history of hyperparathyroidism with subsequent hypoparathyroidism who presents to ED secondary to worsening URI symptoms x2 days. Patient's daughter is at bedside who also has similar symptoms. Patient lives with her daughter and granddaughter. Patient is mostly wheelchair-bound but she is able to transfer and ambulate short distances with a walker. She is still with chronic idiopathic peripheral neuropathy for approximately 20 years and has had significant reduction in ambulatory status over the last 5 years. Over the last 2 days she complains of worsening URI symptoms including sinus congestion, postnasal drip, dry cough and shortness of breath. Her daughter also has similar symptoms. She has been trying [id number] Mucinex without relief. She also complains of frontal headache for which she has been taking Excedrin 3-4 times a day for over the last 2 days. She denies any documented fever, chills, sweats, lightheadedness, dizziness, chest pain, shortness breath at rest, nausea, vomiting, abdominal pain. Overall she is had significant decrease in appetite over the last 2 days. She has been taking medications as prescribed. In ED patient was hemodynamically stable though mildly tachycardic and hypoxic requiring 2 L of supplemental oxygen. Chest x-ray was negative for acute abnormality. She was mildly hypokalemic at 3.2. BUN/creatinine were 31 and 1.12. CBC was completely unremarkable. She was ordered IV Rocephin in ED. Allergies Allergy/AdvReac Type Severity Reaction Status Date / Time No Known Allergies Allergy Verified 09/04/22 16:40 Home Medications Medication Instructions Recorded Confirmed Type gabapentin 300 mg capsule 600 mg PO QID 05/03/18 09/04/22 History magnesium oxide 400 mg PO QAM 05/03/18 09/04/22 History multivitamin 1 tab PO QAM 05/03/18 09/04/22 History omeprazole 20 mg tablet,delayed 20 mg PO BID 05/03/18 09/04/22 History release calcitriol 0.5 mcg capsule 1 mcg PO QAM 06/01/18 09/04/22 History (Rocaltrol) dorzolamide 22.3 mg-timolol 6.8 1 drp OPB BID 06/01/18 09/04/22 History mg/mL eye drops (Cosopt) duloxetine 60 mg capsule,delayed 60 mg PO DAILY 06/01/18 09/04/22 History release (Cymbalta) ibuprofen 200 mg capsule 400 mg PO QID PRN Pain 06/01/18 09/04/22 History indapamide 2.5 mg tablet 2.5 mg PO DAILY 06/01/18 09/04/22 History latanoprost 0.005 % eye drops 1 drp ophthalmic (eye) HS 06/01/18 09/04/22 History (Xalatan) aspirin 81 mg tablet,delayed 81 mg PO QAM 06/24/20 09/04/22 History release (Ed Low Dose Aspirin) amlodipine 2.5 mg tablet 2.5 mg PO DAILY 09/04/22 09/04/22 History rosuvastatin 10 mg tablet 10 mg PO HS 09/04/22 09/04/22 History Past Med/Surg History Medical History Bilateral tinnitus Chronic pain both feet and legs Closed fracture of distal end of right fibula Dyslipidemia GERD (gastroesophageal reflux disease) Glaucoma H/O parathyroidectomy HTN (hypertension) Hyperlipidemia Migraine Neuropathy BOTH FEET AND LEGS Osteoporosis Vitamin D deficiency Surgical History H/O parathyroidectomy "09/26/13" History of back surgery lower Hx of bilateral cataract extraction Hx of cholecystectomy Family History Other Cancer Social History (Updated 09/04/22 @ 18:15 by Fani Davis PA-C) Smoking Status: Never smoker Tobacco Type: Cigarettes Do You Dip or Chew Tobacco: No; Hx Alcohol Use: Yes (rare, 1-2/yr) Hx Substance Use: No Preferred Language: Belarusian Communication Ability: Effective Network Applications Specialist Required: No Beliefs That Will Affect Care: None marital status: / Current Living Situation: Family Current Living Situation Comment: lives with daughter and granddaughter How many Children do You have: 2 Feels Safe at Home: Yes Assistive Devices: Walker Review of Systems Review of Systems: All systems reviewed & are unremarkable except as noted in HPI & below Physical Exam Physical Exam: Constitutional: WD/WN, elderly, F, vitals as above, NAD, sitting up in bed, pleasant, conversing easily Head: Normocephalic, Atraumatic Eyes: PERRL, conjunctivae normal, anicteric sclerae ENMT: external ear and nose normal, oropharynx normal dry membranes Neck: trachea midline, no thyromegaly normal visual inspection Respiratory: normal respiratory effort, lungs clear to auscultation, no wheeze, rales, rhonchi. Normal insp/exp effort, no accessory muscle use , on O2 via NC Cardiovascular: tachycardic, no murmur, no edema Vessels: no JVD or carotid bruit Chest: normal inspection of chest Abdomen: normal bowel sounds, soft, nontender, no hepatosplenomegaly Musculoskeletal: no cyanosis or clubbing, extremities motor strength 5/5 Skin: no rashes, warm and dry normal turgor Neurologic: PERRL, EOMI, accommodation nl, no face palsy, no dysarthria CN's II-XI intact bilaterally and moves all extremities Psychiatric: A+Ox3, euthymic affect Lymphatic: no cervical or axillary lymphadenopathy : deferred Results & Data Results & Data Vital Signs (Past 12 Hours) Vital Signs Temp Pulse Resp BP Pulse Ox O2 Del Method O2 Flow Rate 09/04/22 16:00 107 H 19 130/84 93 2 09/04/22 15:30 112 H 18 111/73 97 Nasal Cannula 2 09/04/22 15:00 120 H 17 108/76 87 L 09/04/22 14:19 36.1 C L 125 H 20 100/65 92 Room Air Diagnostic Findings Chest X-Ray 09/04/22 14:29 XR chest 1V portable HISTORY: Dyspnea COMPARISON: Chest 06/26/2020. FINDINGS: No pneumothorax. No pleural effusions. Mild S-shaped scoliosis of the thoracolumbar spine again noted. There are degenerative changes within the shoulders. There are low lung volumes with a few bibasilar linear densities consistent with subsegmental atelectasis. Otherwise, no new focal lung consolidations to suggest a pneumonia. No evidence for pulmonary edema. There are calcifications within the aortic knob. The heart is normal in size. IMPRESSION: No significant change compared to the prior study. No acute process. ACT 112: Negative or not required by law. Electronically signed by: Dakota Cueva M.D. 09/04/2022 3:02 PM Medications Administered Medication List Discontinued Medications Albuterol (Albut/Ipratrop 3mg/0.5mg Neb 3 Ml Vial) 3 ml NEB NOW STA; Protocol Stop: 09/04/22 14:30 Last Admin: 09/04/22 14:55 Dose: 3 ml Documented By: MT Sodium Chloride (Nss) 500 mls @ 999 mls/hr IV .Q31M ONE Stop: 09/04/22 16:55 Last Infusion: 09/04/22 17:44 Dose: 0 mls/hr Documented By: Admin: 09/04/22 17:07 Dose: 999 mls/hr Documented By: MT Ceftriaxone Sodium (Rocephin) 2,000 mg in 70 mls @ 140 mls/hr IV NOW STA Stop: 09/04/22 16:54 Last Infusion: 09/04/22 17:44 Dose: 0 mls/hr Documented By: Admin: 09/04/22 17:07 Dose: 140 mls/hr Documented By: MT Potassium Chloride (Potassium Chloride Crtab 20 Meq Tabcr) 40 meq PO NOW STA Stop: 09/04/22 16:35 Last Admin: 09/04/22 17:07 Dose: 40 meq Documented By: MT ECG Rate (beats per minute): 102 Rhythm: sinus tachycardia COVID-19 Results Results COVID-19 Adm Lab Results: RBC 5.26 M/uL (4.20-5.40) 09/04/22 WBC 6.76 K/ul (4.8-10.8) 09/04/22 Hgb 16.0 g/dl (12.0-16.0) 09/04/22 Hct 47.1 % (37.0-47.0) H 09/04/22 Plt Count 234 K/uL (130-400) 09/04/22 Neutrophils (%) (Auto) 60.6 % 09/04/22 Lymphocytes (%) (Auto) 29.1 % 09/04/22 Monocytes # (Auto) 0.52 K/uL (0.11-0.59) 09/04/22 Eosinophils # (Auto) 0.08 K/uL (0-0.50) 09/04/22 Immature Granulocyte % (Auto) 0.4 % 09/04/22 Neutrophils # (Auto) 4.09 K/uL (1.40-6.50) 09/04/22 Lymphocytes # (Auto) 1.97 K/uL (1.2-3.4) 09/04/22 Monocytes # (Auto) 0.52 K/uL (0.11-0.59) 09/04/22 Eosinophils # (Auto) 0.08 K/uL (0-0.50) 09/04/22 Basophils # (Auto) 0.07 K/uL (0-0.2) 09/04/22 Immature Granulocyte # (Auto) 0.03 K/uL (0.01-0.20) 3 Na 141 mmol/L (136-145) 09/04/22 K 3.2 mmol/L (3.5-5.1) L 09/04/22 Cl 99 mmol/L (98-107) 09/04/22 CO2 31 mmol/L (21-32) 09/04/22 Anion Gap 11 (3-11) 09/04/22 BUN 31 mg/dl (6-23) H 09/04/22 Creatinine 1.12 mg/dl (0.6-1.2) 09/04/22 BUN/Creatinine Ratio 27.7 (10-20) H 09/04/22 Glucose Level 144 mg/dl (70-99(Fasting)) H 09/04/22 Ca 9.5 mg/dl (8.6-10.3) 09/04/22 Total Bilirubin 0.6 mg/dl (0.2-1.0) 09/04/22 AST/SGOT 29 U/L (13-39) 09/04/22 ALT/SGPT 20 U/L (7-52) 09/04/22 Alkaline Phosphatase 64 U/L (34-104) 09/04/22 Total Protein 7.4 gm/dl (6.0-8.3) 09/04/22 Albumin 4.3 gm/dl (3.4-5.0) 09/04/22 Globulin 3.1 gm/dl (2.5-4.0) 09/04/22 Albumin/Globulin Ratio 1.4 (0.9-2) 09/04/22 CRP 1.57 mg/dl (0-0.5) H 09/04/22 Procalcitonin 0.05 ng/ml (0-0.5) 09/04/22 PTT 28.1 Seconds (21.0-31.0) 09/04/22 INR 1.0 (0.9-1.1) 09/04/22 Adenovirus (PCR) Not Detected (NotDetected) 09/04/22 B. parapertussis DNA (PCR) Not Detected (NotDetected) 08/12 09/02 B. pertussis DNA (PCR) Not Detected (NotDetected) 09/04/22 C. pneumoniae DNA (PCR) Not Detected (NotDetected) 3 Coronavirus Type OC43 (PCR) Not Detected (NotDetected) Coronavirus Type HKU1 (PCR) Not Detected (NotDetected) Coronavirus Type 229E (PCR) Not Detected (NotDetected) COVID-19 PCR Not Detected (NotDetected) 09/04/22 Coronavirus Type NL63 (PCR) Not Detected (NotDetected) Human Metapneumovirus (PCR) Not Detected (NotDetected) Influenza Virus Type A (PCR) Not Detected (NotDetected) Influenza Virus Type B (PCR) Not Detected (NotDetected) M. pneumoniae (PCR) Not Detected (NotDetected) 09/04/22 Parainfluenza Type 1 (PCR) Not Detected (NotDetected) 08/12 09/02 Parainfluenza Type 2 (PCR) Not Detected (NotDetected) 08/12 09/02 Parainfluenza Type 3 (PCR) Not Detected (NotDetected) 08/12 09/02 Parainfluenza Type 4 (PCR) Not Detected (NotDetected) 08/12 09/02 RSV (PCR) Not Detected (NotDetected) 09/04/22 Enterovirus/Rhinovirus (PCR) Not Detected (NotDetected) Chest X-Ray 09/04/22 Code Status & VTE Plan Code Status FULL CODE VTE Prophylaxis Plan VTE Prophylaxis will be ordered: Yes Supervising Physician Co-Signing Physician Notes I have seen and examined the patient and have discussed the case with the provider above. I agree with the assessment and plan as stated with the following exceptions. 81 yo F with excessive coughing x 2 days. Denies underlying structural lung disease or chronic inhaler use and is a non-smoker. Daughter also with symptoms, so this appears to be viral in nature. Afebrile but has sinus tachycardia. Doesn't give much other history aside from general malaise and coughing. She did have some hypoxia today and required 2LPM via nasal canula. Denies chest pain or SOB but she is a poor historian generally. Physical exam reveals a WNWD patient in NAD with no increased respiratory effort. Lungs are CTAB. Cardiac exam reveals tachycardia with a regular rhythm. Skin is warm and dry. No gross focal neuromuscular deficits, oriented and answering questions appropriately. She is cooperative with the exam. Workup includes unremarkable CBC, chem panel around baseline aside from mild hypokalemia at 3.2. Supplementation was given orally. Biofire respiratory panel is negative. CXR is clear. 1. Complicated bronchitis with hypoxia 2. Tachycardia Give her age, tachycardia and hypoxia will order CT chest to rule out PE. This will also better identify lung disease not easily seen on the CXR to understand more fully the cause of her hypoxia. Agree wtih azithromycin for a short course, no steroids at this time with no evidence of bronchospasm. Nebulized bronchodilators and antitussives as needed for supportive care. Cont monitoring on telemetry given the arryhtmia. DO Darian (1) Acute bronchitis Bronchitis organism: unspecified organism Qualified Code(s): J20.9 - Acute bronchitis, unspecified
[2022-09-04] MEDS ORDERED: SODIUM CHLORIDE 0.9% 1000ML 1,000 ML IV SCH (18:23)
[2022-09-04] MEDS ORDERED: ONDANSETRON INJ 2 MG/ML 2 ML VIAL IV PRN (18:23)
[2022-09-04] MEDS ORDERED: MAGNESIUM HYDROXIDE SUSP 30 ML UDC PO PRN (18:23)
[2022-09-04] MEDS ORDERED: POLYETHYLENE (MIRALAX) 17 GM PACK PO PRN (18:23)
[2022-09-04] MEDS ORDERED: ACETAMINOPHEN 325 MG TAB PO PRN (18:23)
[2022-09-04] MEDS ORDERED: LEVALBUTEROL HCL 0.63 MG/3 ML NEB NEB PRN (18:23)
[2022-09-04] MEDS ORDERED: ALUMINUM/MAGNESIUM SUSP 30 ML UDC PO PRN (18:23)
[2022-09-04] MEDS: AZITHROMYCIN 500 MG in DEXTROSE 5% 250 ML IV SCH (19:46)
[2022-09-04] MEDS ORDERED: BENZONATATE 100 MG CAPSULE PO SCH (21:00)
[2022-09-04] MEDS: PANTOprazole 40 MG TAB PO SCH (21:39)
[2022-09-04] MEDS: GABAPENTIN 300 MG CAP PO SCH (21:40)
[2022-09-04] MEDS: BENZONATATE 100 MG CAPSULE PO PRN (21:41)
[2022-09-04] MEDS: ROSUVASTATIN CALCIUM 10 MG TAB PO SCH (21:42)
[2022-09-04] MEDS: HEPARIN SOD 5,000 UNIT/0.5 ML VIAL SQ SCH (21:42)
[2022-09-04] MEDS: DORZOLAMIDE/TIMOLOL 22.3/6.8MG/ML 10 ML BTL OPB SCH (21:43)
[2022-09-04] MEDS: LATANOPROST 0.005% OP SOLN 2.5 ML BTL OP SCH (21:44)
[2022-09-04] MEDS ORDERED: OPTIRAY 320 500ml IV ONE (22:32)
--- NOTE | 2022-09-04 22:59 | CT Scan Report ---
Exam(s): CTA CHEST IV Amt: 119ml optiray 320 EXAM: CT Angiography Chest With Intravenous Contrast CLINICAL HISTORY: Reason for exam: PE. TECHNIQUE: Axial computed tomographic angiography images of the chest with intravenous contrast. CTDI is 31 mGy and DLP is 634.36 mGy-cm. Automated exposure control was utilized for the study. A dose lowering technique was utilized adhering to the principles of ALARA. MIP reconstructed images were created and reviewed. COMPARISON: None. FINDINGS: Pulmonary arteries: Unremarkable. Normal enhancement of the pulmonary arteries with no filling defect to suggest pulmonary embolus. Aorta: Atherosclerotic disease of aorta with no aneurysm. Lungs: The lungs are underexpanded with vascular crowding. There is bilateral lower lobe atelectasis. Mild posterior dependent atelectasis involving the bilateral upper lobe. Remainder of the lung sykes are clear. No mass. Pleural space: Unremarkable. No significant effusion. No pneumothorax. Heart: Mild cardiomegaly with coronary artery calcifications. No significant pericardial effusion. No evidence of RV dysfunction. Bones/joints: No acute fracture. No dislocation. Soft tissues: Unremarkable. Lymph nodes: Unremarkable. No enlarged lymph nodes. Other findings: Degenerative disease of the spine. Visualized upper abdominal structures are unremarkable. IMPRESSION: 1. No pulmonary embolus or aortic dissection. 2. Bilateral multifocal atelectasis, more significant in the bilateral lower lobes. Otherwise no acute cardiopulmonary disease. 3. No pleural effusion or pneumothorax. Electronically signed by: Lou Amanda MD 09/04/22 22:58 PM
[2022-09-05 01:26] LABS: Appearance Urine Clear (Clear); Bacteria Urine Automated Negative (Negative); Bilirubin Urine Negative (Negative); Blood Urine Trace (Negative); Cast Urine Automated 0 /lpf (0-5); Color Urine Yellow; Epithelial Cell Urine Auto >30 /lpf (0-5); Glucose Urine UA Negative (Negative); Ketones Urine Negative (Negative); Leukocyte Esterase Urine Negative (Negative); Nitrite Urine Negative (Negative); Protein Urine Negative (Negative); Specific Gravity Urine > 1.045 (1.000-1.030); Urobilinogen Urine Negative (Negative)
[2022-09-05 01:38] LABS: RBC Urine Automated 0-4 /hpf (0-4)
[2022-09-05] MEDS: HEPARIN SOD 5,000 UNIT/0.5 ML VIAL SQ SCH ×3 (05:45→20:50)
[2022-09-05 07:40] LABS: Basophils # (auto) 0.05 K/uL (0-0.2); Basophils % (auto) 0.9 %; Eosinophils # (auto) 0.15 K/uL (0-0.50); Eosinophils % (auto) 2.6 %; Hematocrit (blood only) 41.5 % (37.0-47.0); Hemoglobin 13.6 g/dl (12.0-16.0); Immature Granulocytes # (auto) 0.01 K/uL (0.01-0.20); Immature Granulocytes % (auto) 0.2 %; Lymphocytes # (auto) 2.59 K/uL (1.2-3.4); Lymphocytes % (auto) 45.4 %; Mean Corpuscular Hemoglobin 30.4 pg (25.0-34.0); Mean Corpuscular Hgb Conc 32.8 g/dL (32.0-36.0); Mean Corpuscular Volume 92.6 fL (80.0-100.0); Monocytes # (auto) 0.62 K/uL (0.11-0.59); Monocytes % (auto) 10.9 %; Neutrophils # (auto) 2.29 K/uL (1.40-6.50); Platelet Count 192 K/uL (130-400); RDW Coefficient of Variation 13.2 % (11.5-14.5); RDW Standard Deviation 45.1 fL (36.4-46.3); Red Blood Count 4.48 M/uL (4.20-5.40); White Blood Count 5.71 K/ul (4.8-10.8)
[2022-09-05] MEDS: MAGNESIUM OXIDE 400 MG TAB PO SCH (07:40)
[2022-09-05] MEDS: BENZONATATE 100 MG CAPSULE PO PRN (07:40)
[2022-09-05] MEDS: CALCITRIOL 0.25 MCG CAPSULE PO SCH (07:40)
[2022-09-05] MEDS: MULTIVITAMIN TAB PO SCH (07:40)
[2022-09-05] MEDS: amLODIPine BESYLATE 5 MG TAB PO SCH (07:41)
[2022-09-05] MEDS: ASPIRIN 81 MG ECTAB PO SCH (07:41)
[2022-09-05] MEDS: DULoxetine HCL 60 MG CAP PO SCH (07:41)
[2022-09-05] MEDS: DORZOLAMIDE/TIMOLOL 22.3/6.8MG/ML 10 ML BTL OPB SCH ×2 (07:42→20:48)
[2022-09-05] MEDS: GABAPENTIN 300 MG CAP PO SCH ×4 (07:42→20:49)
[2022-09-05] MEDS: PANTOprazole 40 MG TAB PO SCH ×2 (07:43→20:49)
[2022-09-05 08:00] LABS: BUN Creatinine Ratio 27.4 (10-20); Calcium 8.4 mg/dl (8.6-10.3); Creatinine Clr Calc Pharmacy 43.3 ml/min; Est GFR (African American) 65.1 ml/min; Est GFR (Non-African American) 56.2 ml/min; Potassium 3.7 mmol/L (3.5-5.1)
[2022-09-05 08:04] LABS: Estimated Average Glucose 131 mg/dl; Hemoglobin A1C 6.2 % (4.5-5.6)
--- NOTE | 2022-09-05 10:50 | Hospitalist Progress Note ---
Date of Service September 05, 2022 Assessment & Plan (1) Acute bronchitis: (2) Hypoxia: (3) HTN (hypertension): (4) Dyslipidemia: (5) Neuropathy: (6) Osteoporosis: Plan This is an 81-year-old female who has significant past medical history of hypertension, hyperlipidemia, vitamin D deficiency, CKD stage III, chronic idiopathic peripheral neuropathy with significant ambulatory dysfunction at baseline, osteoporosis, history of hyperparathyroidism who presents to ED secondary to worsening URI symptoms x2 days. Acute lower URI Acute bronchitis Hypoxia supportive care will cover with IV azithromycin 500mg x 3 days, or while inpatient nebs prn, incentive spirometry, tessalon Perles scheduled PT/OT wean oxygen as able biofire negative Hypokalemia replete PRN HTN continue amlodipine continue to hold indapamide--BP at goal currently HLD continue statin Ambulatory dysfunction Freq falls Mostly wheel chair bound Idiopathic peripheral neuropathy continue gabapentin, cymbalta PT/OT fall prec Osteoporosis Hyperparathyroidism calcitriol Glaucoma continue eye gtts DVT ppx: SQ Heparin Dispo: med tele, pt/ot consult, likely to remain hospitalized 1-2 days, plan to return home with daughter FULL CODE PCP: Jolene Admission and Anticipated Discharge Date Admission Date: September 04, 2022 Subjective Feels improved but not back to baseline Still on oxygen No wheezing Decreased appetite Review of Systems Review of Systems: As above Physical Exam Physical Exam: Appears stated age, no acute distress ENMT: Head is normocephalic, atraumatic Respiratory: No accessory muscle use, no wheezing/rhonchi Cardiovascular: regular rate and rhythm, no murmurs/rubs/gallops Gastrointestinal (Abdomen): soft, non tender, non distended Musculoskeletal: No edema Neurologic: awake, alert, spontaneously moving extremities Results & Data Results & Data Vital Signs (Past 12 Hours) Vital Signs Temp Pulse Pulse Resp BP Pulse Ox O2 Del Method 09/05/22 07:45 Nasal Cannula 09/05/22 07:27 37.1 C 109 H 18 134/75 97 Nasal Cannula 09/05/22 07:00 115 H 09/05/22 05:43 109 H 95 Nasal Cannula 09/05/22 02:53 37.5 C 116 H 16 136/72 91 Room Air 09/04/22 23:00 37.8 C H 112 H 16 127/78 93 Room Air 09/04/22 22:54 Room Air O2 Flow Rate 09/05/22 07:45 3 09/05/22 07:27 3 09/05/22 07:00 09/05/22 05:43 3 09/05/22 02:53 09/04/22 23:00 09/04/22 22:54 (1) Acute bronchitis Bronchitis organism: unspecified organism Qualified Code(s): J20.9 - Acute bronchitis, unspecified
--- NOTE | 2022-09-05 14:38 | Electrocardiogram Report ---
Test Reason : Blood Pressure : / mmHG Vent. Rate : 102 BPM Atrial Rate : 119 BPM P-R Int : 224 ms QRS Dur : 074 ms QT Int : 362 ms P-R-T Axes : 000 045 067 degrees QTc Int : 471 ms Poor data quality, interpretation may be adversely affected Sinus tachycardia with 1st degree A-V block with Premature atrial complexes Premature ventricular complexes Nonspecific T wave abnormality Abnormal ECG When compared with ECG of 24-JUN-2020 11:47, [place] interval has increased Nonspecific T wave abnormality now evident in Anterior leads Confirmed by Leno Becker ([id number]) on 09/05/2022 2:38:39 PM Referred By: Confirmed By:Leno Becker
[2022-09-05] MEDS: AZITHROMYCIN 500 MG in DEXTROSE 5% 250 ML IV SCH (17:39)
[2022-09-05] MEDS ORDERED: IBUPROFEN 200 MG TAB PO STA (19:37)
[2022-09-05] MEDS: LATANOPROST 0.005% OP SOLN 2.5 ML BTL OP SCH (20:49)
[2022-09-05] MEDS: ROSUVASTATIN CALCIUM 10 MG TAB PO SCH (20:49)
[2022-09-06] MEDS: BENZONATATE 100 MG CAPSULE PO PRN (00:16)
[2022-09-06] MEDS: HEPARIN SOD 5,000 UNIT/0.5 ML VIAL SQ SCH (05:28)
[2022-09-06] MEDS: PANTOprazole 40 MG TAB PO SCH (08:13)
[2022-09-06] MEDS: amLODIPine BESYLATE 5 MG TAB PO SCH (08:13)
[2022-09-06] MEDS: MAGNESIUM OXIDE 400 MG TAB PO SCH (08:13)
[2022-09-06] MEDS: DORZOLAMIDE/TIMOLOL 22.3/6.8MG/ML 10 ML BTL OPB SCH (08:13)
[2022-09-06] MEDS: CALCITRIOL 0.25 MCG CAPSULE PO SCH (08:15)
[2022-09-06] MEDS: DULoxetine HCL 60 MG CAP PO SCH (08:15)
[2022-09-06] MEDS: MULTIVITAMIN TAB PO SCH (08:15)
[2022-09-06] MEDS: GABAPENTIN 300 MG CAP PO SCH (08:15)
[2022-09-06] MEDS: ASPIRIN 81 MG ECTAB PO SCH (08:15)
[2022-09-06] MEDS ORDERED: KETOROLAC TROMETHAMINE 15 MG/ML VIAL IV ONE (11:04)
--- NOTE | 2022-09-08 13:01 | Discharge Summary ---
Date of Service September 06, 2022--Date of discharge Admission HPI Per Admitting Provider This is an 81-year-old female who has significant past medical history of hypertension, hyperlipidemia, vitamin D deficiency, CKD stage III, chronic idiopathic peripheral neuropathy with significant ambulatory dysfunction at baseline, osteoporosis, history of hyperparathyroidism with subsequent hypoparathyroidism who presents to ED secondary to worsening URI symptoms x2 days. Patient's daughter is at bedside who also has similar symptoms. Patient lives with her daughter and granddaughter. Patient is mostly wheelchair-bound but she is able to transfer and ambulate short distances with a walker. She is still with chronic idiopathic peripheral neuropathy for approximately 20 years and has had significant reduction in ambulatory status over the last 5 years. Over the last 2 days she complains of worsening URI symptoms including sinus congestion, postnasal drip, dry cough and shortness of breath. Her daughter also has similar symptoms. She has been trying [id number]-iwq-oltegak Mucinex without relief. She also complains of frontal headache for which she has been taking Excedrin 3-4 times a day for over the last 2 days. She denies any documented fever, chills, sweats, lightheadedness, dizziness, chest pain, shortness breath at rest, nausea, vomiting, abdominal pain. Overall she is had significant decrease in appetite over the last 2 days. She has been taking medications as prescribed. In ED patient was hemodynamically stable though mildly tachycardic and hypoxic requiring 2 L of supplemental oxygen. Chest x-ray was negative for acute abnormality. She was mildly hypokalemic at 3.2. BUN/creatinine were 31 and 1.12. CBC was completely unremarkable. She was ordered IV Rocephin in ED. Principal Diagnosis Cough likely viral bronchitis Chronic headache Acute hypoxic respiratory failure, now weaned off oxygen Atelectasis Discharge Exam Patient was seen and examined on the day of discharge. She was sitting in her chair at bedside, breathing comfortably on room air, able to speak in complete sentences. No cough currently but did have coughing overnight. Reports her c ough is worse at night. Reports symptoms of acid reflux and post nasal drip at night time. Discharge Data Allergies Allergy/AdvReac Type Severity Reaction Status Date / Time No Known Allergies Allergy Verified 09/04/22 16:40 Consultations 09/04/22 16:40 ED Decision to Admit Stat Ordered Studies 09/04/22 21:25 CT angio chest PE protocol Urgent Hospital Course (1) Acute bronchitis: (2) Hypoxia: (3) HTN (hypertension): (4) Dyslipidemia: (5) Neuropathy: (6) Osteoporosis: Plan Ms Florencia Rivera is a 81 year old female with history of HTN, GERD, chronic migraine headaches, HLD, vitamin D deficiency, osteoporosis, long standing idiopathic neuropathy presented to ER 09/04 with nasal congestion, cough for past 2 days. Daughter with similar symptoms. Upon presentation to ER, she was noted to have hypoxia with O2 saturation of 87% on room air and was placed on 2L NC with improvement. Because of her hypoxia, she had a CTA chest which was negative for PE but did demonstrate bilateral atelectasis at lung bases. Here, she was encouraged incentive spirometry, out of bed to chair, and received nebulizers as needed. She also received 3 days of azithromycin. With treatment, she was weaned off oxygen and at the time of discharge was 94% on room air. Upon further inquiry, she reports her cough is worse at night and when she lays down flat. She has a history of GERD and is already on a PPI--she was instructed to sleep with her head elevated to see if her nocturnal cough is reduced. She was also prescribed flonase for nasal congestion and to reduce post nasal drip. She also reports having chronic headache for years (daily headaches) for which she takes OTC NSAIDs. This was discontinued and she was prescribed Fioricet here. She was instructed to follow up with her neurologist for management of her chronic daily migraine headaches. She was seen by PT here and recommended rehab. She and her daughter declined rehab and felt she was at her baseline. She felt comfortable to return home and daughter will provide transportation. Total Time Total Time Spent Total Time Spent (In Minutes): 40 Discharge Plan Discharge Items Patient Disposition: Home - Self-Care Reason For Visit: HYPOXIA, BRONCHITIS Discharge Diagnosis: Cough Chronic headache Acute hypoxic respiratory failure, now weaned off oxygen Atelectasis Condition on Discharge: Good Activity: Resume your previous activity Non-emergency contact: Primary Care Provider and Neurologist Call non-emergency contact if: you have any medication questions Follow-up/Referrals: Hernan Fernández MD [Primary Care Provider] - (Date & Time 09/12/2022 7:40 AM Provider Hernan Fernández III, MD Department [facility] ) Diet: Heart Healthy Addtl Attending Provider Instructions: For your cough You had a CT chest and it showed atelectasis (bases of your lungs are not expanding completely), to avoid this, you should practice deep breathing You report having night time cough. This can be caused by acid reflux--> try sleeping with your head elevated on 2-3 pillows. Continue taking omeprazole for your reflux. You should avoid Ibuprofen, Aleve, Advil since these medicines can worsen your acid reflux. Night time cough can also be caused by post nasal drip. You can try using flonase to see if it helps. You can also try Claritin or Zyrtec for allergy symptoms. For your chronic headache You were prescribed Fioricet (butalbital/acetaminophen/caffeine) for your headache. Please follow up with your Neurologist to discuss whether you should be on medicines to help prevent headaches. You should follow up with your primary care doctor in 2 weeks for after discharge care Pending Studies at Discharge: No Stand-Alone Forms: [facility] Sm[facility] Cessation Medications and DC Order Prescriptions: New fluticasone propionate [Flonase Allergy Relief] 50 mcg/actuation spray,suspension 1 spray intranasal DAILY Qty: 16 0RF Rx Instructions: administer into each nostril [id number] [Fioricet] 50-300-40 mg capsule 1 cap PO Q8H PRN (Reason: headache) Qty: 20 0RF Continued latanoprost [Xalatan] 0.005 % drops 1 drp ophthalmic (eye) HS indapamide 2.5 mg tablet 2.5 mg PO DAILY calcitriol [Rocaltrol] 0.5 mcg capsule 1 mcg PO QAM Rx Instructions: 2 TABS dorzolamide-timolol [Cosopt] 22.3-6.8 mg/mL drops 1 drp OPB BID duloxetine [Cymbalta] 60 mg capsule,delayed release(DR/EC) 60 mg PO DAILY gabapentin 300 mg Capsule 600 mg PO QID multivitamin Tablet 1 tab PO QAM magnesium oxide 250 mg magnesium Tablet 400 mg PO QAM omeprazole 20 mg Tablet,Delayed Release (Dr/Ec) 20 mg PO BID aspirin [Ed Low Dose Aspirin] 81 mg tablet,delayed release (DR/EC) 81 mg PO QAM amlodipine 2.5 mg tablet 2.5 mg PO DAILY rosuvastatin 10 mg tablet 10 mg PO HS Discontinued ibuprofen 200 mg Capsule 400 mg PO QID PRN (Reason: Pain) Discharge Orders: Discharge Order (Routine); Ordered 09/06/22 Ordered By: Foster Griffith/Other Patient Handouts: A1C Admission Data Admit Date/Time: 09/04/22 16:39 Attending Provider: Foster Tirado Admit Provider: Mandy Farmer Primary Care Provider: Hernan Fernández Other Providers: Mandy Farmer ; Foster Tirado Other Interventions: Discharge Summary Assessment (RN) Last Done: 09/06/22 14:14
== END 2022-09-06 14:40 | disposition home or self-care (01) | DRG 202 ==
LOC: ED 14:17 → EDINP 16:39 → SUATTDRO 16:39 → 2N 20:45

== ENCOUNTER 2022-09-16 17:37 | Observation (INO) ==
--- NOTE | 2022-09-16 18:14 | Emergency Department Note ---
Impression & Plan Constipation, Tachycardia, Arrhythmia ED Provider Note Provider: Lee Edmond MD DATE OF SERVICE: 09/16/2022 CHIEF COMPLAINT: Constipation HISTORY OF PRESENT ILLNESS: Patient is a 81-year-old female history of hypertension, GERD, CKD, and recent admission for bronchitis coming in today via ambulance due to constipation issues. Patient was admitted here just over a week ago for bronchitis. States her symptoms have improved. States she last had a bowel movement about 6 days ago. Denies significant recurrent issues or history of constipation in the past. Has been trying to maintain hydration states she has been eating okay. Did not take her probiotic for a few days as she had a busy weekend with her granddaughter's graduation from high school. Denies abdominal pain or nausea or vomiting. Reports today she tried to have a bowel movement and sat on the toilet for at least 3 hours. Tried her own finger as well as with her daughter's help attempted an enema without much success. States she was having some discomfort particular when trying to stand while sitting in the rectal area. Denies significant pain currently. Denies any urinary issues. No bloody bowel movements reported. PAST MEDICAL HISTORY: As noted above MEDICATIONS: Reviewed home medications SOCIAL HISTORY: Lives at home with daughter and granddaughter PHYSICAL EXAM: GENERAL: alert and oriented in no acute distress on stretcher Head: normocephalic and atraumatic EYES: No injection, discharge or icterus. NECK: Trachea midline. ENT: Mucous membranes pink and moist. LUNGS: Airway patent. No retractions or tachypnea HEART: Regular rate and rhythm. No chest wall tenderness ABDOMEN: Soft and non-tender, without guarding or rebound. Rectal with RN potato chip processing supervisor Nuvia: No large hemorrhoid noted with some slight swelling of the anal region at the verge without appreciable mass or bleeding noted. Formed stool appreciated in the rectal vault brown in nature. SKIN: Acyanotic, warm, dry, without rashes EXTREMITIES: Without swelling, tenderness or deformity NEUROLOGICAL: No focal deficits. No aphasia. No facial droop or slurred speech. Ambulatory. EK bpm sinus tachycardia. No PVC noted. No acute ST segment elevation with inferior lateral T wave inversions noted with a QTc of 453. Compared to previous from August of this year no T wave inversions noted. Cardiac monitoring by my order: Normal sinus rhythm in the 80s and then periods where she has sinus arrhythmia and then sinus tachycardia into the 120s. Not clearly A-fib. Patient's imaging reviewed as well as basic labs. Differential includes Functional constipation, impaction, obstruction, volvulus, metabolic abnormality, infection, neurologic, as well as other pathologies. IMPRESSION/MEDICAL DECISION MAKING: Patient without nausea vomiting or obstructive symptoms. Benign abdomen on exam without tenderness. Doubt perforation. Recently on antibiotics again without diarrhea no constipation symptoms. No fevers reported or other neurological symptoms. No bleeding symptoms reported and she otherwise feels well. Do not feel blood work is initially necessary or urine sample. Doubt acute spinal cord pathology as she is urinating fine. Good rectal tone on exam. Has a bit of swelling are likely from sitting on the toilet for multiple hours state and trying self disimpaction as well as enema at home. With RN potato chip processing supervisor rectal exam without any melena or black stool appreciated with brownish stool formed in the rectal vault. Moderate amount of formed stool not rockhard was disimpacted by myself at bedside in the standard fashion with patient permission. Will perform enema after this for additional effect. Abdominal x-ray with findings of nonobstructive bowel gas pattern consistent as I do not think she is obstructed. Subset enema team here with good effect. Patient was have improvement of her abdominal symptoms. Did have a bit of tachycardia and a slight headache after the enema but denies any chest pain or abdominal pain. EKG obtained with basic labs as daughter reports she has been eating and drinking well also given a bit of IV fluid. Labs with reassuring chemistries here. No evidence of troponin elevation or hepatitis. Leukocytosis of 15 noted unclear etiology. Unsure if it is from the stress of the day in the enema but again is feeling well on reevaluation. Given her age however we will complete a CT abdomen pelvis to exclude any occult intra-abdominal pathology. Not having any chest or abdominal pain again or significant nausea or vomiting. No respiratory issues reported. Is having some variable heart rates here between the 80s and 120s. Does not clearly appear to be A-fib on review of EKGs. Will bring in for further telemetry monitoring however given the irregularity. Troponin not elevated but does have some slight ST segment changes. In shared decision-making discussed the findings with her and her daughter. Patient without significant chest discomfort. Discussed with them the intermittent tachycardic periods on telemetry here as well as the T wave inversions noted on the EKG. No significant cardiac history for the patient. Discussed further ob servation given the arrhythmia and EKG changes. Recent CTA of the chest last week and do not feel we need to repeat at this time. Hospitalist contacted. DIAGNOSIS: Constipation, arrhythmia DISPOSITION: Discharge Patient was agreeable with this plan. Discussed return precautions and advised follow up. Past Med/Surg History Medical History Bilateral tinnitus Chronic pain both feet and legs Closed fracture of distal end of right fibula Dyslipidemia GERD (gastroesophageal reflux disease) Glaucoma H/O parathyroidectomy History of hydronephrosis HTN (hypertension) Hyperlipidemia Migraine Nephrolithiasis Neuropathy BOTH FEET AND LEGS Osteoporosis Vitamin D deficiency Surgical History H/O parathyroidectomy "09/26/13" History of back surgery lower Hx of bilateral cataract extraction Hx of cholecystectomy Family History Other Cancer Social History Smoking Status: Former smoker Tobacco Type: Cigarettes Second Hand Exposure: No; Do You Dip or Chew Tobacco: No; Hx Alcohol Use: No Hx Substance Use: No Preferred Language: [place] Communication Ability: Effective Veterinary Technician Assistant Required: No Beliefs That Will Affect Care: None marital status: / Current Living Situation: Family Current Living Situation Comment: lives with daughter and granddaughter How many Children do You have: 2 Feels Safe at Home: Yes Assistive Devices: Walker Allergies Allergies Allergy/AdvReac Type Severity Reaction Status Date / Time No Known Allergies Allergy Verified 09/16/22 18:28 Home Meds Home Medications Medication Instructions Recorded Confirmed gabapentin 300 mg capsule 600 mg PO QID 05/03/18 09/16/22 magnesium oxide 400 mg PO QAM 05/03/18 09/16/22 multivitamin 1 tab PO QAM 05/03/18 09/16/22 omeprazole 20 mg tablet,delayed 20 mg PO BID 05/03/18 09/16/22 release calcitriol 0.5 mcg capsule 1 mcg PO QAM 06/01/18 09/16/22 (Rocaltrol) dorzolamide 22.3 mg-timolol 6.8 1 p OPB BID 06/01/18 09/16/22 mg/mL eye drops (Cosopt) duloxetine 60 mg capsule,delayed 60 mg PO DAILY 06/01/18 09/16/22 release (Cymbalta) indapamide 2.5 mg tablet 2.5 mg PO DAILY 06/01/18 09/16/22 latanoprost 0.005 % eye drops 1 drp ophthalmic (eye) HS 06/01/18 09/16/22 (Xalatan) aspirin 81 mg tablet,delayed 81 mg PO QAM 06/24/20 09/16/22 release (Ed Low Dose Aspirin) amlodipine 2.5 mg tablet 2.5 mg PO DAILY 09/04/22 09/16/22 rosuvastatin 10 mg tablet 10 mg PO HS 09/04/22 09/16/22 fluticasone propionate 50 1 spray intranasal HS 09/16/22 09/16/22 mcg/actuation nasal spray,suspension (Flonase Allergy Relief) tizanidine 2 mg tablet 2 mg PO TID PRN Muscle Spasm 09/16/22 09/16/22 Previous Rx's Medication Instructions Recorded laegqrvhes-ecpercvlnujjr-zxwhsuun 1 cap PO Q8H PRN headache #20 caps 09/06/22 50 mg-300 mg-40 mg capsule (Fioricet) Results & Data (ED) Vital Signs Vital Signs - 24 hr 09/16/22 17:43 09/16/22 19:02 09/16/22 19:01 Temperature 36.6 C Temperature Source Temporal Artery Scan Pulse Rate 77 107 H 103 H Pulse Rate [Apical] Pulse Rate from SpO2 Sensor 113 H Respiratory Rate 18 18 Respiratory Effort / Characteristics Non-Labored Spontaneous Respiratory Depth Normal Respiratory Pattern Regular Blood Pressure 148/59 H Blood Pressure [Left Arm] Blood Pressure Mean 88 Blood Pressure Mean [Left Arm] Blood Pressure Position Sitting Pulse Oximetry 93 96 Oxygen Delivery Method Room Air Sepsis Recent Fever Within 48 Hours No Sepsis New/Unexplained Change in Mental Status N/A Sepsis Action Taken by Nursing No Action Required 09/16/22 19:10 09/16/22 19:20 09/16/22 19:30 Temperature Temperature Source Pulse Rate 114 H 94 H 96 H Pulse Rate [Apical] Pulse Rate from SpO2 Sensor Respiratory Rate 15 15 18 Respiratory Effort / Characteristics Respiratory Depth Respiratory Pattern Blood Pressure Blood Pressure [Left Arm] Blood Pressure Mean Blood Pressure Mean [Left Arm] Blood Pressure Position Pulse Oximetry Oxygen Delivery Method Sepsis Recent Fever Within 48 Hours Sepsis New/Unexplained Change in Mental Status Sepsis Action Taken by Nursing 09/16/22 19:40 09/16/22 19:50 09/16/22 20:00 Temperature Temperature Source Pulse Rate 110 H 106 H 109 H Pulse Rate [Apical] Pulse Rate from SpO2 Sensor 109 H 108 H Respiratory Rate 14 17 22 Respiratory Effort / Characteristics Respiratory Depth Respiratory Pattern Blood Pressure Blood Pressure [Left Arm] Blood Pressure Mean Blood Pressure Mean [Left Arm] Blood Pressure Position Pulse Oximetry 92 92 Oxygen Delivery Method Sepsis Recent Fever Within 48 Hours Sepsis New/Unexplained Change in Mental Status Sepsis Action Taken by Nursing 09/16/22 18:50 09/16/22 20:21 09/16/22 22:26 Temperature Temperature Source Pulse Rate 79 Pulse Rate [Apical] 120 H Pulse Rate from SpO2 Sensor Respiratory Rate 18 Respiratory Effort / Characteristics Non-Labored Spontaneous Respiratory Depth Normal Respiratory Pattern Blood Pressure Blood Pressure [Left Arm] 172/88 H 182/100 H Blood Pressure Mean Blood Pressure Mean [Left Arm] 116 127 Blood Pressure Position Pulse Oximetry 94 Oxygen Delivery Method Room Air Sepsis Recent Fever Within 48 Hours Sepsis New/Unexplained Change in Mental Status Sepsis Action Taken by Nursing 09/16/22 20:20 09/16/22 20:21 09/16/22 20:30 Temperature Temperature Source Pulse Rate 116 H 120 H 79 Pulse Rate [Apical] Pulse Rate from SpO2 Sensor 120 H 100 H Respiratory Rate 7 L 18 21 Respiratory Effort / Characteristics Respiratory Depth Respiratory Pattern Blood Pressure 182/100 H Blood Pressure [Left Arm] Blood Pressure Mean 127 Blood Pressure Mean [Left Arm] Blood Pressure Position Pulse Oximetry 94 94 Oxygen Delivery Method Sepsis Recent Fever Within 48 Hours Sepsis New/Unexplained Change in Mental Status Sepsis Action Taken by Nursing 09/16/22 20:40 09/16/22 20:50 09/16/22 21:00 Temperature Temperature Source Pulse Rate 120 H 94 H 77 Pulse Rate [Apical] Pulse Rate from SpO2 Sensor 110 H 99 H 80 Respiratory Rate 21 19 16 Respiratory Effort / Characteristics Respiratory Depth Respiratory Pattern Blood Pressure Blood Pressure [Left Arm] Blood Pressure Mean Blood Pressure Mean [Left Arm] Blood Pressure Position Pulse Oximetry 92 91 92 Oxygen Delivery Method Sepsis Recent Fever Within 48 Hours Sepsis New/Unexplained Change in Mental Status Sepsis Action Taken by Nursing 09/16/22 21:09 09/16/22 21:10 09/16/22 21:20 Temperature Temperature Source Pulse Rate 124 H 125 H 122 H Pulse Rate [Apical] Pulse Rate from SpO2 Sensor 89 125 H 122 H Respiratory Rate 16 23 20 Respiratory Effort / Characteristics Respiratory Depth Respiratory Pattern Blood Pressure 180/87 H Blood Pressure [Left Arm] Blood Pressure Mean 118 Blood Pressure Mean [Left Arm] Blood Pressure Position Pulse Oximetry 87 L 92 92 Oxygen Delivery Method Sepsis Recent Fever Within 48 Hours Sepsis New/Unexplained Change in Mental Status Sepsis Action Taken by Nursing 09/16/22 21:30 09/16/22 21:31 09/16/22 21:40 Temperature Temperature Source Pulse Rate 113 H 83 126 H Pulse Rate [Apical] Pulse Rate from SpO2 Sensor 99 H 85 124 H Respiratory Rate 21 21 19 Respiratory Effort / Characteristics Respiratory Depth Respiratory Pattern Blood Pressure 143/98 H Blood Pressure [Left Arm] Blood Pressure Mean 113 Blood Pressure Mean [Left Arm] Blood Pressure Position Pulse Oximetry 93 92 92 Oxygen Delivery Method Sepsis Recent Fever Within 48 Hours Sepsis New/Unexplained Change in Mental Status Sepsis Action Taken by Nursing 09/16/22 21:50 09/16/22 22:00 09/16/22 22:01 Temperature Temperature Source Pulse Rate 109 H 103 H 96 H Pulse Rate [Apical] Pulse Rate from SpO2 Sensor 114 H 126 H Respiratory Rate 14 25 H 24 Respiratory Effort / Characteristics Respiratory Depth Respiratory Pattern Blood Pressure 122/97 Blood Pressure [Left Arm] Blood Pressure Mean 105 Blood Pressure Mean [Left Arm] Blood Pressure Position Pulse Oximetry 96 80 L Oxygen Delivery Method Sepsis Recent Fever Within 48 Hours Sepsis New/Unexplained Change in Mental Status Sepsis Action Taken by Nursing 09/16/22 22:10 09/16/22 22:20 09/16/22 22:30 Temperature Temperature Source Pulse Rate 126 H 91 H 110 H Pulse Rate [Apical] Pulse Rate from SpO2 Sensor 88 88 85 Respiratory Rate 24 18 20 Respiratory Effort / Characteristics Respiratory Depth Respiratory Pattern Blood Pressure 143/80 H Blood Pressure [Left Arm] Blood Pressure Mean 101 Blood Pressure Mean [Left Arm] Blood Pressure Position Pulse Oximetry 80 L 93 93 Oxygen Delivery Method Sepsis Recent Fever Within 48 Hours Sepsis New/Unexplained Change in Mental Status Sepsis Action Taken by Nursing 09/16/22 22:40 09/16/22 22:50 09/16/22 23:00 Temperature Temperature Source Pulse Rate 88 87 74 Pulse Rate [Apical] Pulse Rate from SpO2 Sensor 81 99 H 93 H Respiratory Rate 15 19 19 Respiratory Effort / Characteristics Respiratory Depth Respiratory Pattern Blood Pressure 126/90 Blood Pressure [Left Arm] Blood Pressure Mean 102 Blood Pressure Mean [Left Arm] Blood Pressure Position Pulse Oximetry 90 91 92 Oxygen Delivery Method Sepsis Recent Fever Within 48 Hours Sepsis New/Unexplained Change in Mental Status Sepsis Action Taken by Nursing 09/16/22 23:10 09/16/22 23:20 09/16/22 23:30 Temperature Temperature Source Pulse Rate 81 112 H 121 H Pulse Rate [Apical] Pulse Rate from SpO2 Sensor 84 111 H 120 H Respiratory Rate 23 18 19 Respiratory Effort / Characteristics Respiratory Depth Respiratory Pattern Blood Pressure Blood Pressure [Left Arm] Blood Pressure Mean Blood Pressure Mean [Left Arm] Blood Pressure Position Pulse Oximetry 92 93 94 Oxygen Delivery Method Sepsis Recent Fever Within 48 Hours Sepsis New/Unexplained Change in Mental Status Sepsis Action Taken by Nursing Laboratory Data 09/16/22 19:14 09/16/22 19:14 Lab Results 09/16/22 09/16/22 09/16/22 Range/Units 19:14 19:14 19:16 WBC 15.33 H (4.8-10.8) K/ul RBC 5.17 (4.20-5.40) M/uL Hgb 15.8 (12.0-16.0) g/dl Hct 47.4 H (37.0-47.0) % MCV 91.7 (80.0-100.0) fL MCH 30.6 (25.0-34.0) pg MCHC 33.3 (32.0-36.0) g/dL RDW Std Deviation 44.7 (36.4-46.3) fL RDW Coeff of Didi 13.2 (11.5-14.5) % Plt Count 252 (130-400) K/uL MPV 9.7 (9.4-12.4) fL Immature Gran % (Auto) 0.5 % Neut % (Auto) 88.2 % Lymph % (Auto) 8.0 % [place] % (Auto) 2.9 % Eos % (Auto) 0.1 % Baso % (Auto) 0.3 % Neut # (Auto) 13.54 H (1.40-6.50) K/uL Lymph # (Auto) 1.22 (1.2-3.4) K/uL [place] # (Auto) 0.44 (0.11-0.59) K/uL Eos # (Auto) 0.02 (0-0.50) K/uL Baso # (Auto) 0.04 (0-0.2) K/uL Immature Gran # (Auto) 0.07 (0.01-0.20) K/uL APTT Cancelled PTT Ratio Cancelled Sodium 143 (136-145) mmol/L Potassium TNP Chloride 101 (98-107) mmol/L Carbon Dioxide 32 (21-32) mmol/L Anion Gap 10 (3-11) BUN 35 H (6-23) mg/dl Creatinine 0.88 (0.6-1.2) mg/dl Est Cr Clr Drug Dosing 47.0 ml/min Est GFR ( Amer) 71.4 ml/min Est GFR (Non-Af Amer) 61.6 ml/min BUN/Creatinine Ratio 39.8 H (10-20) Glucose 95 (70-99(Fasting)) mg/dl Lactate (0.4-2.0) mmol/L Calcium 9.9 (8.6-10.3) mg/dl Magnesium 1.7 (1.7-2.4) mg/dl Total Bilirubin 0.5 (0.2-1.0) mg/dl AST TNP ALT 33 (7-52) U/L Alkaline Phosphatase 57 (34-104) U/L Troponin I High Sens 4.7 (0-14) pg/ml Total Protein 7.6 (6.0-8.3) gm/dl Albumin 4.3 (3.4-5.0) gm/dl Globulin 3.3 (2.5-4.0) gm/dl Albumin/Globulin Ratio 1.3 (0.9-2) TSH (0.300-4.500) uIu/ml SARS-CoV-2, RNA, NAAT (NEGATIVE) 09/16/22 09/16/22 09/16/22 Range/Units 20:55 21:16 21:47 WBC (4.8-10.8) K/ul RBC (4.20-5.40) M/uL Hgb (12.0-16.0) g/dl Hct (37.0-47.0) % MCV (80.0-100.0) fL MCH (25.0-34.0) pg MCHC (32.0-36.0) g/dL RDW Std Deviation (36.4-46.3) fL RDW Coeff of Didi (11.5-14.5) % Plt Count (130-400) K/uL MPV (9.4-12.4) fL Immature Gran % (Auto) % Neut % (Auto) % Lymph % (Auto) % [place] % (Auto) % Eos % (Auto) % Baso % (Auto) % Neut # (Auto) (1.40-6.50) K/uL Lymph # (Auto) (1.2-3.4) K/uL [place] # (Auto) (0.11-0.59) K/uL Eos # (Auto) (0-0.50) K/uL Baso # (Auto) (0-0.2) K/uL Immature Gran # (Auto) (0.01-0.20) K/uL APTT PTT Ratio Sodium (136-145) mmol/L Potassium 3.4 L Chloride (98-107) mmol/L Carbon Dioxide (21-32) mmol/L Anion Gap (3-11) BUN (6-23) mg/dl Creatinine (0.6-1.2) mg/dl Est Cr Clr Drug Dosing ml/min Est GFR ( Amer) ml/min Est GFR (Non-Af Amer) ml/min BUN/Creatinine Ratio (10-20) Glucose (70-99(Fasting)) mg/dl Lactate 1.7 (0.4-2.0) mmol/L Calcium (8.6-10.3) mg/dl Magnesium (1.7-2.4) mg/dl Total Bilirubin (0.2-1.0) mg/dl AST 36 ALT (7-52) U/L Alkaline Phosphatase (34-104) U/L Troponin I High Sens (0-14) pg/ml Total Protein (6.0-8.3) gm/dl Albumin (3.4-5.0) gm/dl Globulin (2.5-4.0) gm/dl Albumin/Globulin Ratio (0.9-2) TSH (0.300-4.500) uIu/ml SARS-CoV-2, RNA, NAAT NEGATIVE (NEGATIVE) 06/06/23 Range/Units 21:49 WBC (4.8-10.8) K/ul RBC (4.20-5.40) M/uL Hgb (12.0-16.0) g/dl Hct (37.0-47.0) % MCV (80.0-100.0) fL MCH (25.0-34.0) pg MCHC (32.0-36.0) g/dL RDW Std Deviation (36.4-46.3) fL RDW Coeff of Didi (11.5-14.5) % Plt Count (130-400) K/uL MPV (9.4-12.4) fL Immature Gran % (Auto) % Neut % (Auto) % Lymph % (Auto) % [place] % (Auto) % Eos % (Auto) % Baso % (Auto) % Neut # (Auto) (1.40-6.50) K/uL Lymph # (Auto) (1.2-3.4) K/uL [place] # (Auto) (0.11-0.59) K/uL Eos # (Auto) (0-0.50) K/uL Baso # (Auto) (0-0.2) K/uL Immature Gran # (Auto) (0.01-0.20) K/uL APTT PTT Ratio Sodium (136-145) mmol/L Potassium Chloride (98-107) mmol/L Carbon Dioxide (21-32) mmol/L Anion Gap (3-11) BUN (6-23) mg/dl Creatinine (0.6-1.2) mg/dl Est Cr Clr Drug Dosing ml/min Est GFR ( Amer) ml/min Est GFR (Non-Af Amer) ml/min BUN/Creatinine Ratio (10-20) Glucose (70-99(Fasting)) mg/dl Lactate (0.4-2.0) mmol/L Calcium (8.6-10.3) mg/dl Magnesium (1.7-2.4) mg/dl Total Bilirubin (0.2-1.0) mg/dl AST ALT (7-52) U/L Alkaline Phosphatase (34-104) U/L Troponin I High Sens (0-14) pg/ml Total Protein (6.0-8.3) gm/dl Albumin (3.4-5.0) gm/dl Globulin (2.5-4.0) gm/dl Albumin/Globulin Ratio (0.9-2) TSH 1.035 (0.300-4.500) uIu/ml SARS-CoV-2, RNA, NAAT (NEGATIVE) Administered Medications Magnesium Sulfate/Dextrose (Magnesium Sulfate / D5w) 1 gm in 100 mls @ 50 mls/hr IV Q2H [facility] Stop: 09/17/22 02:44 Last Admin: 09/16/22 23:20 Dose: 50 mls/hr Documented By: ALEX Potassium Chloride/Sodium Chloride (Normal Saline W/20 Meq Kcl) 20 meq in 1,000 mls @ 60 mls/hr IV .[id number] ONE; Protocol Stop: 09/17/22 15:36 Last Admin: 09/16/22 23:18 Dose: 60 mls/hr Documented By: ALEX Discontinued Medications Clonidine HCl (Clonidine Hcl 0.1 Mg Tab) 0.1 mg PO NOW ONE Stop: 09/16/22 21:21 Last Admin: 09/16/22 21:46 Dose: 0.1 mg Documented By: JULIANNA Heparin Sodium/Dextrose (Heparin Iv Adult Wt-Based Standard *No* Bolus Protocol) 1 each IV ONE ONE; Protocol Stop: 09/16/22 22:42 Last Admin: 09/16/22 23:37 Dose: Not Given Documented By: ALEX Heparin Sodium/Dextrose (Heparin Iv Adult Wt-Based Standard *No* Bolus Protocol) 1 each IV Q30M [facility]; Protocol Stop: 10/16/22 22:59 Last Admin: 09/16/22 23:37 Dose: Not Given Documented By: ALEX Sodium Chloride (Nss 1000ml) 500 mls @ 999 mls/hr IV .Q31M ONE Stop: 09/16/22 19:36 Last Infusion: 09/16/22 19:49 Dose: 0 mls/hr Documented By: Admin: 09/16/22 19:18 Dose: 999 mls/hr Documented By: ALEX Piperacillin Sod/Tazobactam Sod (Zosyn) 4.5 gm in 120 mls @ 240 mls/hr IV NOW ONE Stop: 09/16/22 21:55 Last Infusion: 09/16/22 22:27 Dose: 0 mls/hr Documented By: Admin: 09/16/22 21:53 Dose: 240 mls/hr Documented By: JULIANNA Acetaminophen (Ofirmev) 1,000 mg in 100 mls @ 400 mls/hr IV NOW STA Stop: 09/16/22 22:55 Last Infusion: 09/16/22 23:36 Dose: 0 mls/hr Documented By: Admin: 09/16/22 23:20 Dose: 400 mls/hr Documented By: ALEX Ioversol (Optiray 320 100ml) 83 ml IV ONCE ONE Stop: 09/16/22 20:14 Last Admin: 09/16/22 20:14 Dose: 83 ml Documented By: NURIA Metoprolol Tartrate (Metoprolol Tartrate 25 Mg Tab) 25 mg PO NOW STA Stop: 09/16/22 22:42 Last Admin: 09/16/22 23:20 Dose: 25 mg Documented By: ALEX Potassium Chloride (Potassium Chloride Crtab 20 Meq Tabcr) 40 meq PO NOW STA Stop: 09/16/22 21:35 Last Admin: 09/16/22 21:46 Dose: 40 meq Documented By: JULIANNA Potassium Chloride (Potassium Chloride Crtab 20 Meq Tabcr) 20 meq PO ONE ONE Stop: 09/16/22 23:01 Last Admin: 09/16/22 23:21 Dose: 20 meq Documented By: ALEX Imaging Data Radiologist's Impression: KUB X-Ray 09/16/22 17:43 XR KUB/Abdomen 1 view CLINICAL HISTORY: constipation TECHNIQUE: 1 view of the abdomen was obtained. Comparison: Comparison is made to abdomen radiograph 06/25/2020 FINDINGS: Lung bases are unremarkable. Degenerative changes are seen in the visualized skeleton. The bowel gas pattern is nonobstructive. A moderate amount of stool is noted within the large bowel. IMPRESSION: Nonobstructive bowel gas pattern. ACT 112: Negative or not required by law. Electronically signed by: Wander Estevez M.D. 09/16/2022 6:34 PM Abdomen/Pelvis CT 09/16/22 19:53 Exam(s): CT ABDOMEN + PELVIS With Contrast IV Amt: 83 ml optiray 320 EXAM: CT Abdomen and Pelvis With Intravenous Contrast CLINICAL HISTORY: Reason for exam: rectal discomfort, constipation, elev wbc. TECHNIQUE: Axial computed tomography images of the abdomen and pelvis with intravenous contrast. CTDI is 17.45 mGy and DLP is 860.1 mGy-cm. Automated exposure control was utilized for the study. A dose lowering technique was utilized adhering to the principles of ALARA. CONTRAST: Patient received 83 ml optiray 320 of IV contrast COMPARISON: CT abdomen/pelvis on 06/24/2020 FINDINGS: Lung bases: Bibasilar atelectasis. Heart: Coronary artery and aortic valve calcifications. ABDOMEN: Liver: Unremarkable. No mass. Gallbladder and bile ducts: Prior cholecystectomy. Probable postcholecystectomy ductal ectasia. Pancreas: Unremarkable. No mass. No ductal dilation. Spleen: Unremarkable. No splenomegaly. Adrenals: Unremarkable. No mass. Kidneys and ureters: Small bilateral renal cysts. Other small hypodensities in the kidneys are too small to definitively characterize. No hydronephrosis or obstructing stone. Stomach and bowel: Wall thickening of the rectum is concerning for proctitis. Neoplasm is not excluded. Evaluation of the stomach is limited by underdistention. Gastritis or neoplasm is not excluded. Fluid and gas-filled small bowel loops could represent enteritis in the appropriate Clinical setting. Duodenal diverticulum. Colonic diverticulosis without evidence of diverticulitis. PELVIS: Appendix: Appendix is not visualized on this exam. Bladder: Unremarkable. No mass. Reproductive: Probable uterine fibroids. ABDOMEN and PELVIS: Intraperitoneal space: Unremarkable. No free air. No significant fluid collection. Bones/joints: Left convex curvature of the spine. Degenerative changes of the spine. No acute fracture. No dislocation. Soft tissues: Injection granuloma in the right gluteal soft tissues. Small fat-containing umbilical hernia. Vasculature: Atherosclerotic changes of the vasculature. Ectasia or mild aneurysmal dilatation in the distal abdominal aorta measuring 2.2 cm. No aortic dissection. Lymph nodes: Unremarkable. No enlarged lymph nodes. IMPRESSION: 1. Wall thickening of the rectum is concerning for proctitis. Neoplasm is not excluded. 2. Evaluation of the stomach is limited by underdistention. Gastritis or neoplasm is not excluded. 3. Fluid and gas-filled small bowel loops could represent enteritis in the appropriate Clinical setting. Electronically signed by: Albaro Jean Baptiste M.D. 09/16/22 20:40 PM Discharge Plan Visit Data Chief Complaint: Constipation ED Provider: Lee Edmond Discharge Problem: Constipation, Tachycardia, Arrhythmia Patient Disposition: Being Evaluated by Hospitalist Forms Stand Alone Forms: My [facility] Prescriptions Prescriptions: No Action latanoprost [Xalatan] 0.005 % drops 1 drp ophthalmic (eye) HS indapamide 2.5 mg tablet 2.5 mg PO DAILY calcitriol [Rocaltrol] 0.5 mcg capsule 1 mcg PO QAM Rx Instructions: 2 TABS dorzolamide-timolol [Cosopt] 22.3-6.8 mg/mL drops 1 drp OPB BID duloxetine [Cymbalta] 60 mg capsule,delayed release(DR/EC) 60 mg PO DAILY gabapentin 300 mg Capsule 600 mg PO QID multivitamin Tablet 1 tab PO QAM magnesium oxide 250 mg magnesium Tablet 400 mg PO QAM omeprazole 20 mg Tablet,Delayed Release (Dr/Ec) 20 mg PO BID aspirin [Ed Low Dose Aspirin] 81 mg tablet,delayed release (DR/EC) 81 mg PO QAM amlodipine 2.5 mg tablet 2.5 mg PO DAILY rosuvastatin 10 mg tablet 10 mg PO HS [id number] [Fioricet] 50-300-40 mg capsule 1 cap PO Q8H PRN (Reason: headache) Qty: 20 0RF fluticasone propionate [Flonase Allergy Relief] 50 mcg/actuation spray,suspension 1 spray intranasal HS Rx Instructions: administer into each nostril tizanidine 2 mg Tablet 2 mg PO TID PRN (Reason: Muscle Spasm) Referrals Referrals: Hernan Fernández MD [Primary Care Provider] -
--- NOTE | 2022-09-16 18:36 | XRay Report ---
XR KUB/Abdomen 1 view CLINICAL HISTORY: constipation TECHNIQUE: 1 view of the abdomen was obtained. Comparison: Comparison is made to abdomen radiograph 06/25/2020 FINDINGS: Lung bases are unremarkable. Degenerative changes are seen in the visualized skeleton. The bowel gas pattern is nonobstructive. A moderate amount of stool is noted within the large bowel. IMPRESSION: Nonobstructive bowel gas pattern. ACT 112: Negative or not required by law. Electronically signed by: Wander Estevez M.D. 09/16/2022 6:34 PM
[2022-09-16] MEDS ORDERED: SODIUM CHLORIDE 0.9% 1000ML 500 ML IV ONE (19:06)
[2022-09-16 19:37] LABS: Basophils # (auto) 0.04 K/uL (0-0.2); Basophils % (auto) 0.3 %; Eosinophils # (auto) 0.02 K/uL (0-0.50); Eosinophils % (auto) 0.1 %; Hematocrit (blood only) 47.4 % (37.0-47.0); Hemoglobin 15.8 g/dl (12.0-16.0); Immature Granulocytes # (auto) 0.07 K/uL (0.01-0.20); Immature Granulocytes % (auto) 0.5 %; Lymphocytes # (auto) 1.22 K/uL (1.2-3.4); Mean Corpuscular Hemoglobin 30.6 pg (25.0-34.0); Mean Corpuscular Hgb Conc 33.3 g/dL (32.0-36.0); Mean Corpuscular Volume 91.7 fL (80.0-100.0); Mean Platelet Volume 9.7 fL (9.4-12.4); Monocytes # (auto) 0.44 K/uL (0.11-0.59); Monocytes % (auto) 2.9 %; Neutrophils # (auto) 13.54 K/uL (1.40-6.50); Neutrophils % (auto) 88.2 %; Platelet Count 252 K/uL (130-400); RDW Coefficient of Variation 13.2 % (11.5-14.5); RDW Standard Deviation 44.7 fL (36.4-46.3); Red Blood Count 5.17 M/uL (4.20-5.40); White Blood Count 15.33 K/ul (4.8-10.8)
[2022-09-16 19:54] LABS: Alanine Aminotransferase 33 U/L (7-52); Albumin Globulin Ratio 1.3 (0.9-2); Albumin Level 4.3 gm/dl (3.4-5.0); Alkaline Phosphatase 57 U/L (34-104); Anion Gap 10 (3-11); BUN Creatinine Ratio 39.8 (10-20); Bilirubin,Total 0.5 mg/dl (0.2-1.0); Blood Urea Nitrogen 35 mg/dl (6-23); Calcium 9.9 mg/dl (8.6-10.3); Carbon Dioxide 32 mmol/L (21-32); Chloride 101 mmol/L (98-107); Est GFR (African American) 71.4 ml/min; Est GFR (Non-African American) 61.6 ml/min; Globulin 3.3 gm/dl (2.5-4.0); Glucose 95 mg/dl (70-99(Fasting)); Sodium 143 mmol/L (136-145); Total Protein 7.6 gm/dl (6.0-8.3)
[2022-09-16 20:00] LABS: Troponin I High Sensitivity 4.7 pg/ml (0-14)
[2022-09-16] MEDS ORDERED: OPTIRAY 320 100ml IV ONE (20:13)
--- NOTE | 2022-09-16 20:41 | CT Scan Report ---
Exam(s): CT ABDOMEN + PELVIS With Contrast IV Amt: 83 ml optiray 320 EXAM: CT Abdomen and Pelvis With Intravenous Contrast CLINICAL HISTORY: Reason for exam: rectal discomfort, constipation, elev wbc. TECHNIQUE: Axial computed tomography images of the abdomen and pelvis with intravenous contrast. CTDI is 17.45 mGy and DLP is 860.1 mGy-cm. Automated exposure control was utilized for the study. A dose lowering technique was utilized adhering to the principles of ALARA. CONTRAST: Patient received 83 ml optiray 320 of IV contrast COMPARISON: CT abdomen/pelvis on 06/24/2020 FINDINGS: Lung bases: Bibasilar atelectasis. Heart: Coronary artery and aortic valve calcifications. ABDOMEN: Liver: Unremarkable. No mass. Gallbladder and bile ducts: Prior cholecystectomy. Probable postcholecystectomy ductal ectasia. Pancreas: Unremarkable. No mass. No ductal dilation. Spleen: Unremarkable. No splenomegaly. Adrenals: Unremarkable. No mass. Kidneys and ureters: Small bilateral renal cysts. Other small hypodensities in the kidneys are too small to definitively characterize. No hydronephrosis or obstructing stone. Stomach and bowel: Wall thickening of the rectum is concerning for proctitis. Neoplasm is not excluded. Evaluation of the stomach is limited by underdistention. Gastritis or neoplasm is not excluded. Fluid and gas-filled small bowel loops could represent enteritis in the appropriate Clinical setting. Duodenal diverticulum. Colonic diverticulosis without evidence of diverticulitis. PELVIS: Appendix: Appendix is not visualized on this exam. Bladder: Unremarkable. No mass. Reproductive: Probable uterine fibroids. ABDOMEN and PELVIS: Intraperitoneal space: Unremarkable. No free air. No significant fluid collection. Bones/joints: Left convex curvature of the spine. Degenerative changes of the spine. No acute fracture. No dislocation. Soft tissues: Injection granuloma in the right gluteal soft tissues. Small fat-containing umbilical hernia. Vasculature: Atherosclerotic changes of the vasculature. Ectasia or mild aneurysmal dilatation in the distal abdominal aorta measuring 2.2 cm. No aortic dissection. Lymph nodes: Unremarkable. No enlarged lymph nodes. IMPRESSION: 1. Wall thickening of the rectum is concerning for proctitis. Neoplasm is not excluded. 2. Evaluation of the stomach is limited by underdistention. Gastritis or neoplasm is not excluded. 3. Fluid and gas-filled small bowel loops could represent enteritis in the appropriate Clinical setting. Electronically signed by: Albaro Jean Baptiste M.D. 09/16/22 20:40 PM
[2022-09-16] MEDS ORDERED: cloNIDine HCL 0.1 MG TAB PO ONE (21:20)
[2022-09-16] MEDS ORDERED: PIPERACILLIN/TAZOBACTAM 4.5 GM/120 ML BAG IV ONE (21:26)
[2022-09-16 21:32] LABS: Potassium 3.4 mmol/L (3.5-5.1)
[2022-09-16] MEDS ORDERED: POTASSIUM CHLORIDE CRTAB 20 MEQ TABCR PO STA (21:34)
[2022-09-16 21:54] LABS: Magnesium 1.7 mg/dl (1.7-2.4)
--- NOTE | 2022-09-16 22:22 | History & Physical Report ---
Date of Service September 16, 2022 Assessment & Plan (1) Acute electrocardiogram changes: (2) Tachycardia: (3) Constipation: (4) HTN (hypertension): (5) H/O parathyroidectomy: (6) Neuropathy: Plan: Please refer to Dr. Torres's addendum for assessment and plan. History of Present Illness Chief Complaint: Constipation Primary Care Provider: Hernna Fernández MD 81-year-old female with PMH dyslipidemia, history of parathyroidectomy, PAD, HTN, GERD, CKD stage III, history of migraines, peripheral neuropathy, and other problems listed below who presents to the ED for evaluation of constipation. History obtained from the patient and review of outpatient PCP records. Patient recently admitted to [facility] 09/04 through 09/06 for hypoxia secondary to bronchitis. Patient reports she had been doing well until today. States that she developed rectal pain and inability to have a bowel movement. Patient states she typically has a bowel movement every other day. Last bowel movement was about 4 days ago. Patient states that she sat on the toilet for several hours today. She attempted to manually disimpact herself. She reports associated nausea however no vomiting. She denies chest pain, palpitations, shortness of breath. No lightheadedness, dizziness, diaphoresis, syncopal events. Denies fevers and chills. No urinary symptoms. Patient received a soapsuds enema in the ED and had a large bowel movement. Subsequently patient developed tachycardia and hypertension. EKG showed T wave inversions in the inferior and anterolateral leads. Allergies Allergy/AdvReac Type Severity Reaction Status Date / Time No Known Allergies Allergy Verified 09/16/22 18:28 Home Medications Medication Instructions Recorded Confirmed Type gabapentin 300 mg capsule 600 mg PO QID 05/03/18 09/16/22 History magnesium oxide 400 mg PO QAM 05/03/18 09/16/22 History multivitamin 1 tab PO QAM 05/03/18 09/16/22 History omeprazole 20 mg tablet,delayed 20 mg PO BID 05/03/18 09/16/22 History release calcitriol 0.5 mcg capsule 1 mcg PO QAM 06/01/18 09/16/22 History (Rocaltrol) dorzolamide 22.3 mg-timolol 6.8 1 drp OPB BID 06/01/18 09/16/22 History mg/mL eye drops (Cosopt) duloxetine 60 mg capsule,delayed 60 mg PO DAILY 06/01/18 09/16/22 History release (Cymbalta) indapamide 2.5 mg tablet 2.5 mg PO DAILY 06/01/18 09/16/22 History latanoprost 0.005 % eye drops 1 drp ophthalmic (eye) HS 06/01/18 09/16/22 History (Xalatan) aspirin 81 mg tablet,delayed 81 mg PO QAM 06/24/20 09/16/22 History release (Ed Low Dose Aspirin) amlodipine 2.5 mg tablet 2.5 mg PO DAILY 09/04/22 09/16/22 History rosuvastatin 10 mg tablet 10 mg PO HS 09/04/22 09/16/22 History xqccmlpguq-yztaxdamyjvov-ykilpnfs 1 cap PO Q8H PRN headache #20 caps 09/06/22 09/16/22 Rx 50 mg-300 mg-40 mg capsule (Fioricet) fluticasone propionate 50 1 spray intranasal HS 09/16/22 09/16/22 History mcg/actuation nasal spray,suspension (Flonase Allergy Relief) tizanidine 2 mg tablet 2 mg PO TID PRN Muscle Spasm 09/16/22 09/16/22 History Past Med/Surg History Medical History Bilateral tinnitus Chronic pain both feet and legs Closed fracture of distal end of right fibula Dyslipidemia GERD (gastroesophageal reflux disease) Glaucoma H/O parathyroidectomy History of hydronephrosis HTN (hypertension) Hyperlipidemia Migraine Nephrolithiasis Neuropathy BOTH FEET AND LEGS Osteoporosis Vitamin D deficiency Surgical History H/O parathyroidectomy "09/26/13" History of back surgery lower Hx of bilateral cataract extraction Hx of cholecystectomy Family History Other Cancer Social History Smoking Status: Former smoker Tobacco Type: Cigarettes Second Hand Exposure: No; Do You Dip or Chew Tobacco: No; Hx Alcohol Use: No Hx Substance Use: No Preferred Language: Qatari Communication Ability: Effective Diabetic Educator Required: No Beliefs That Will Affect Care: None marital status: / Current Living Situation: Family Current Living Situation Comment: lives with daughter and granddaughter How many Children do You have: 2 Feels Safe at Home: Yes Safety Concerns: Feels Safe At This Time Assistive Devices: Glasses and Walker Assistive Devices Comment: glasses present Review of Systems Review of Systems: ROS per HPI, all other systems reviewed and negative Physical Exam Constitutional: WD/WN, vitals as above no acute distress Eyes: PERRL, conjunctivae normal, anicteric sclerae ENMT: external ear and nose normal, oropharynx normal Respiratory: normal respiratory effort, lungs clear to auscultation Cardiovascular: Rate/Rhythm: + tachycardic and + irregularly irregular Vessels: normal peripheral pulses Extremities: + edema (Trace edema BLE) Gastrointestinal (Abdomen): normal bowel sounds, soft, nontender, no hepatosplenomegaly Musculoskeletal: no cyanosis or clubbing, extremities motor strength 5/5 Skin: no rashes, warm and dry Neurologic: PERRL, EOMI, accommodation nl, no face palsy, no dysarthria Psychiatric: A+Ox3, euthymic affect Results & Data Results & Data Vital Signs (Past 12 Hours) Vital Signs Temp Pulse Pulse Resp BP BP Pulse Ox 09/16/22 20:21 120 H 18 182/100 H 94 09/16/22 18:50 172/88 H 09/16/22 20:00 109 H 22 92 09/16/22 19:50 106 H 17 92 09/16/22 19:40 110 H 14 09/16/22 19:30 96 H 18 09/16/22 19:20 94 H 15 09/16/22 19:10 114 H 15 09/16/22 19:01 103 H 18 96 09/16/22 19:02 107 H 09/16/22 17:43 36.6 C 77 18 148/59 H 93 O2 Del Method 09/16/22 20:21 Room Air 09/16/22 18:50 09/16/22 20:00 09/16/22 19:50 09/16/22 19:40 09/16/22 19:30 09/16/22 19:20 09/16/22 19:10 09/16/22 19:01 09/16/22 19:02 09/16/22 17:43 Room Air Laboratory Results Short CBC 09/16/22 Range/Units 19:14 WBC 15.33 H (4.8-10.8) K/ul Hgb 15.8 (12.0-16.0) g/dl Hct 47.4 H (37.0-47.0) % Plt Count 252 (130-400) K/uL BMP 09/16/22 09/16/22 19:14 20:55 Sodium 143 Potassium TNP 3.4 L Chloride 101 Carbon Dioxide 32 BUN 35 H Creatinine 0.88 Glucose 95 Calcium 9.9 Liver Function 09/16/22 09/16/22 Range/Units 19:14 20:55 Total Bilirubin 0.5 (0.2-1.0) mg/dl AST TNP 36 ALT 33 (7-52) U/L Alkaline Phosphatase 57 (34-104) U/L Albumin 4.3 (3.4-5.0) gm/dl Diagnostic Findings KUB X-Ray 09/16/22 17:43 XR KUB/Abdomen 1 view CLINICAL HISTORY: constipation TECHNIQUE: 1 view of the abdomen was obtained. Comparison: Comparison is made to abdomen radiograph 06/25/2020 FINDINGS: Lung bases are unremarkable. Degenerative changes are seen in the visualized [place]. The bowel gas pattern is nonobstructive. A moderate amount of stool is noted within the large bowel. IMPRESSION: Nonobstructive bowel gas pattern. ACT 112: Negative or not required by law. Electronically signed by: Wander Estevez M.D. 09/16/2022 6:34 PM Abdomen/Pelvis CT 09/16/22 19:53 Exam(s): CT ABDOMEN + PELVIS With Contrast IV Amt: 83 ml optiray 320 EXAM: CT Abdomen and Pelvis With Intravenous Contrast CLINICAL HISTORY: Reason for exam: rectal discomfort, constipation, elev wbc. TECHNIQUE: Axial computed tomography images of the abdomen and pelvis with intravenous contrast. CTDI is 17.45 mGy and DLP is 860.1 mGy-cm. Automated exposure control was utilized for the study. A dose lowering technique was utilized adhering to the principles of ALARA. CONTRAST: Patient received 83 ml optiray 320 of IV contrast COMPARISON: CT abdomen/pelvis on 06/24/2020 FINDINGS: Lung bases: Bibasilar atelectasis. Heart: Coronary artery and aortic valve calcifications. ABDOMEN: Liver: Unremarkable. No mass. Gallbladder and bile ducts: Prior cholecystectomy. Probable postcholecystectomy ductal ectasia. Pancreas: Unremarkable. No mass. No ductal dilation. Spleen: Unremarkable. No splenomegaly. Adrenals: Unremarkable. No mass. Kidneys and ureters: Small bilateral renal cysts. Other small hypodensities in the kidneys are too small to definitively characterize. No hydronephrosis or obstructing stone. Stomach and bowel: Wall thickening of the rectum is concerning for proctitis. Neoplasm is not excluded. Evaluation of the stomach is limited by underdistention. Gastritis or neoplasm is not excluded. Fluid and gas-filled small bowel loops could represent enteritis in the appropriate Clinical setting. Duodenal diverticulum. Colonic diverticulosis without evidence of diverticulitis. PELVIS: Appendix: Appendix is not visualized on this exam. Bladder: Unremarkable. No mass. Reproductive: Probable uterine fibroids. ABDOMEN and PELVIS: Intraperitoneal space: Unremarkable. No free air. No significant fluid collection. Bones/joints: Left convex curvature of the spine. Degenerative changes of the spine. No acute fracture. No dislocation. Soft tissues: Injection granuloma in the right gluteal soft tissues. Small fat-containing umbilical hernia. Vasculature: Atherosclerotic changes of the vasculature. Ectasia or mild aneurysmal dilatation in the distal abdominal aorta measuring 2.2 cm. No aortic dissection. Lymph nodes: Unremarkable. No enlarged lymph nodes. IMPRESSION: 1. Wall thickening of the rectum is concerning for proctitis. Neoplasm is not excluded. 2. Evaluation of the stomach is limited by underdistention. Gastritis or neoplasm is not excluded. 3. Fluid and gas-filled small bowel loops could represent enteritis in the appropriate Clinical setting. Electronically signed by: Albaro Jean Baptiste M.D. 09/16/22 20:40 PM Supervising Physician Co-Signing Physician Notes IM ATTENDING : Patient seen and examined. History obtained from patient and records. Preceding documentation by MATTHEW Campo reviewed. In addition, patient noted to have transient A-fib on the monitor upon arrival at the ER as per chiller technician. FINAL ASSESSMENT AND PLAN as follows : Paroxysmal A-fib new onset Likely secondary to uncontrolled hypertension from sepsis secondary to proctitis, Excedrin intake for migraine contributory hx PAD/LE neuropathy as per records Hyperlipidemia on statin Rx Chronic headache symptoms attributed to migraine hyperparathyroidism status post parathyroidectomy past tobacco abuse PCU initiate beta-sav for rate control IV heparin for thromboembolic prophylaxis TTE, Cardiology consult Re: PAF Cultures, Zosyn for proctitis Bowel regimen DVT prophylaxis. IV heparin Full code Text document was generated using [employer] voice recognition software. It may contain grammatical or spelling errors. Kindly contact undersigned for clarification of any documentation item in question. (3) Constipation Constipation type: unspecified constipation type Qualified Code(s): K59.00 - Constipation, unspecified
[2022-09-16] MEDS ORDERED: ACETAMINOPHEN 1,000 MG/100 ML VIAL IV STA (22:41)
[2022-09-16] MEDS ORDERED: METOPROLOL TARTRATE 25 MG TAB PO STA (22:41)
[2022-09-16] MEDS ORDERED: Heparin IV Adult Wt-Based Standard *NO* Bolus Protocol IV ONE (22:41)
[2022-09-16] MEDS ORDERED: NSS + 20MEQ KCL 20 MEQ/1,000 ML BAG IV ONE (22:57)
[2022-09-16] MEDS ORDERED: Heparin IV Adult Wt-Based Standard *NO* Bolus Protocol IV SCH (23:00)
[2022-09-16] MEDS ORDERED: POTASSIUM CHLORIDE CRTAB 20 MEQ TABCR PO ONE (23:00)
[2022-09-16] MEDS ORDERED: HEPARIN SODIUM/DEXTROSE 25,000 UNITS/500 ML BAG IV SCH ×2 (23:00→23:15)
[2022-09-16] MEDS: MAGNESIUM SULFATE / D5W 1 GM/100 ML BAG IV SCH (23:20)
[2022-09-17 00:15] LABS: Partial Thromboplastin Ratio 0.9
[2022-09-17] MEDS ORDERED: POLYETHYLENE (MIRALAX) 17 GM PACK PO PRN (00:37)
[2022-09-17] MEDS ORDERED: PROMETHAZINE HCL 6.25 MG in SODIUM CHLORIDE 0.9% 50 ML IV PRN (00:37)
[2022-09-17] MEDS ORDERED: traMADol HCL 50 MG TABLET PO PRN (00:37)
[2022-09-17] MEDS: MAGNESIUM SULFATE / D5W 1 GM/100 ML BAG IV SCH (01:23)
[2022-09-17] MEDS: GABAPENTIN 300 MG CAP PO SCH ×4 (01:23→21:45)
[2022-09-17] MEDS: PIPERACILLIN/TAZOBACTAM 4.5 GM in DEXTROSE 5% 100 ML IV SCH ×3 (04:12→21:45)
--- NOTE | 2022-09-17 07:45 | XRay Report ---
XR chest 1V portable CLINICAL HISTORY: tachy TECHNIQUE: Single frontal radiograph of the chest was obtained. Comparison: Comparison is made to chest radiograph 09/04/2022 FINDINGS: No lines and tubes are seen. Calcified aortic knob is seen. Lungs are underinflated but clear. No brittany dence of pleural effusion or pneumothorax. IMPRESSION: No acute chest disease. ACT 112: Negative or not required by law. Electronically signed by: Wander Estevez M.D. 09/17/2022 7:44 AM
[2022-09-17 08:21] LABS: Basophils # (auto) 0.05 K/uL (0-0.2); Basophils % (auto) 0.5 %; Eosinophils # (auto) 0.12 K/uL (0-0.50); Eosinophils % (auto) 1.1 %; Hematocrit (blood only) 39.2 % (37.0-47.0); Hemoglobin 13.1 g/dl (12.0-16.0); Immature Granulocytes # (auto) 0.03 K/uL (0.01-0.20); Immature Granulocytes % (auto) 0.3 %; Lymphocytes # (auto) 2.88 K/uL (1.2-3.4); Lymphocytes % (auto) 26.4 %; Mean Corpuscular Hemoglobin 30.2 pg (25.0-34.0); Mean Corpuscular Hgb Conc 33.4 g/dL (32.0-36.0); Mean Corpuscular Volume 90.3 fL (80.0-100.0); Mean Platelet Volume 10.1 fL (9.4-12.4); Monocytes # (auto) 0.71 K/uL (0.11-0.59); Monocytes % (auto) 6.5 %; Neutrophils # (auto) 7.13 K/uL (1.40-6.50); Neutrophils % (auto) 65.2 %; Platelet Count 243 K/uL (130-400); RDW Coefficient of Variation 13.4 % (11.5-14.5); RDW Standard Deviation 43.9 fL (36.4-46.3); Red Blood Count 4.34 M/uL (4.20-5.40); White Blood Count 10.92 K/ul (4.8-10.8)
[2022-09-17 08:39] LABS: BUN Creatinine Ratio 32.2 (10-20); Calcium 8.6 mg/dl (8.6-10.3); Creatinine Clr Calc Pharmacy 45.4 ml/min; Est GFR (African American) 69.5 ml/min; Magnesium 2.4 mg/dl (1.7-2.4)
--- NOTE | 2022-09-17 08:43 | Cardiology Consultation ---
Date of Consultation September 17, 2022 Assessment & Plan (1) Sinus tachycardia: (2) Atrial tachycardia, paroxysmal: (3) Wenckebach: (4) HTN (hypertension): Plan IMPRESSION: 81 year old female who initially presented to the ED due to severe rectal pain/constipation- found to have proctitis. Developed tachycardia during soapsuds enema. Questionable episode of PAF- cardiology consulted. Echo with normal LVEF, no wall motion abnormalities. LA/RA normal in size. Telemetry reviewed- patient was primary in sinus rhythm/sinus tach with episodes of MAT/PAT. Patient was asymptomatic. Now experiencing SB on monitor with HR in the low 50s, Wenckebach noted on EKG- beta sav was stopped (this was a new medication for the patient). PLAN: 1. Discontinue IV heparin given risk of bleeding with proctitis and no definitive PAF on telemetry 2. Stop metoprolol tartrate given bradycardia and Wenckebach on telemetry/EKG. Continue to monitor on telemetry while inpatient. 3. Will plan on outpatient zio monitor to assess for any atrial fibrillation. 4. Treatment of proctitis per primary team/GI. 5. Potassium goal of 4.0 and mag goal of 2.0- replace as needed. Case discussed with Dr. Pacheco. Will follow. Supervising Physician Co-Signing Physician Notes Patient was seen and personally examined. Full assessment and plan as outlined above Transient tachycardia in ER in the setting of acute pain. No overt atrial fibrillation on review of telemetry and patient certainly at risk for such however anticoagulation currently not indicated Resting bradycardia/AV block we will hold beta-sav possibly resume at lower dosing Keep electrolytes replaced, pain controlled History of Present Illness Reason for Consultation: Tachycardia Questionable PAF Requesting Physician: Kaylynn hospitalist Attending Physician: Jayson Shah MD History of Present Illness 81-year-old female who initially presented to [facility] emergency department due to concerns of constipation and severe rectal pain- found to have proctitis and placed on IV antibiotics. In the emergency department she received a soapsuds enema and had a large bowel movement. Subsequently she developed tachycardia and hypertension. EKG showed sinus tachycardia in the 120s to 130s- T wave inversions were noted in inferior and anterior lateral leads. Transient episode of questionable atrial fibrillation was seen on monitor- started on IV heparin and beta sav per hospitalist team. Blood work in the emergency department revealed stable renal function with hypokalemia. Patient was supplemented, potassium 4.0 this morning. High- sensitivity troponin negative. Blood cultures pending. Echocardiogram revealed a normal LVEF of 60 to 65% without wall motion abnormalities. Moderately calcified aortic valve with moderate aortic regurgitation. LA and RA normal in size. EKG 09/17: Sinus rhythm with a second-degree AV block, Mobitz type I (Wenckebach) 61 bpm. T wave inversion resolved in inferior and anterior lateral leads. Tele: Sinus bradycardia 50s. ST with brief episodes of MAT/PAT, no definitive PAF. Upon entrance into the room patient resting in bed without acute concern. Was asymptomatic with tachycardia- no palpitations, chest pain, or shortness of breath. Denies any lightheadedness/dizziness or fatigue. Metoprolol held this morning due to bradycardia. BP controlled. Denies any prior cardiac history. Past medical history: Hypertension Peripheral arterial disease per MARYA 02/2017 Neuropathy Dyslipidemia Surgical hypothyroidism CKD GERD Former smoker Allergies Allergy/AdvReac Type Severity Reaction Status Date / Time No Known Allergies Allergy Verified 09/16/22 18:28 Home Medications Medication Instructions Recorded Confirmed Type gabapentin 300 mg capsule 600 mg PO QID 05/03/18 09/16/22 History magnesium oxide 400 mg PO QAM 05/03/18 09/16/22 History multivitamin 1 tab PO QAM 05/03/18 09/16/22 History omeprazole 20 mg tablet,delayed 20 mg PO BID 05/03/18 09/16/22 History release calcitriol 0.5 mcg capsule 1 mcg PO QAM 06/01/18 09/16/22 History (Rocaltrol) dorzolamide 22.3 mg-timolol 6.8 1 drp OPB BID 06/01/18 09/16/22 History mg/mL eye drops (Cosopt) duloxetine 60 mg capsule,delayed 60 mg PO DAILY 06/01/18 09/16/22 History release (Cymbalta) indapamide 2.5 mg tablet 2.5 mg PO DAILY 06/01/18 09/16/22 History latanoprost 0.005 % eye drops 1 drp ophthalmic (eye) HS 06/01/18 09/16/22 History (Xalatan) aspirin 81 mg tablet,delayed 81 mg PO QAM 06/24/20 09/16/22 History release (Ed Low Dose Aspirin) amlodipine 2.5 mg tablet 2.5 mg PO DAILY 09/04/22 09/16/22 History rosuvastatin 10 mg tablet 10 mg PO HS 09/04/22 09/16/22 History uktvkfbzkf-cyfdouednchql-leqyvciw 1 cap PO Q8H PRN headache #20 caps 09/06/22 09/16/22 Rx 50 mg-300 mg-40 mg capsule (Fioricet) fluticasone propionate 50 1 spray intranasal HS 09/16/22 09/16/22 History mcg/actuation nasal spray,suspension (Flonase Allergy Relief) tizanidine 2 mg tablet 2 mg PO TID PRN Muscle Spasm 09/16/22 09/16/22 History Patient History Medical History Bilateral tinnitus Chronic pain both feet and legs Closed fracture of distal end of right fibula Dyslipidemia GERD (gastroesophageal reflux disease) Glaucoma H/O parathyroidectomy History of hydronephrosis HTN (hypertension) Hyperlipidemia Migraine Nephrolithiasis Neuropathy BOTH FEET AND LEGS Osteoporosis Vitamin D deficiency Surgical History H/O parathyroidectomy "09/26/13" History of back surgery lower Hx of bilateral cataract extraction Hx of cholecystectomy Family History Other Cancer Social History Smoking Status: Former smoker Tobacco Type: Cigarettes Second Hand Exposure: No; Do You Dip or Chew Tobacco: No; Hx Alcohol Use: No Hx Substance Use: No Preferred Language: Estonian Communication Ability: Effective Department Clerk Required: No Beliefs That Will Affect Care: None marital status: / Current Living Situation: Family Current Living Situation Comment: lives with daughter and granddaughter How many Children do You have: 2 Feels Safe at Home: Yes Safety Concerns: Feels Safe At This Time Assistive Devices: Glasses and Walker Assistive Devices Comment: glasses present Review of Systems Review of Systems: All systems reviewed & are unremarkable except as noted in HPI & below Physical Exam Constitutional: WD/WN, vitals as above no acute distress Eyes: PERRL, conjunctivae normal, anicteric sclerae Neck: normal visual inspection and trachea midline Respiratory: normal respiratory effort, lungs clear to auscultation Cardiovascular: RRR, no murmur, no edema Heart Sounds: normal S1 and normal S2 Vessels: no JVD Extremities: no edema Gastrointestinal (Abdomen): normal bowel sounds, soft, nontender, no hepatosplenomegaly Musculoskeletal: no cyanosis or clubbing, extremities motor strength 5/5 Skin: no rashes, warm and dry Psychiatric: A+Ox3, euthymic affect Results & Data Vital Signs (Past 12 Hours) Vital Signs Temp Pulse Pulse Resp BP BP Pulse Ox 09/17/22 07:20 53 L 09/17/22 03:36 36.6 C 55 L 18 107/60 92 09/17/22 01:09 51 L 09/17/22 01:14 36.3 C L 64 16 144/71 H 94 09/16/22 23:30 121 H 19 94 09/16/22 23:20 112 H 18 93 09/16/22 23:10 81 23 92 09/16/22 23:00 74 19 126/90 92 09/16/22 22:50 87 19 91 09/16/22 22:40 88 15 90 09/16/22 22:30 110 H 20 143/80 H 93 09/16/22 22:20 91 H 18 93 09/16/22 22:10 126 H 24 80 L 09/16/22 22:01 96 H 24 122/97 80 L 09/16/22 22:00 103 H 25 H 96 09/16/22 21:50 109 H 14 09/16/22 21:40 126 H 19 143/98 H 92 09/16/22 21:31 83 21 92 09/16/22 21:30 113 H 21 93 09/16/22 21:20 122 H 20 92 09/16/22 21:10 125 H 23 92 09/16/22 21:09 124 H 16 180/87 H 87 L 09/16/22 21:00 77 16 92 09/16/22 20:50 94 H 19 91 09/16/22 20:40 120 H 21 92 09/16/22 22:26 79 O2 Del Method 09/17/22 07:20 09/17/22 03:36 Room Air 09/17/22 01:09 09/17/22 01:14 Room Air 09/16/22 23:30 09/16/22 23:20 09/16/22 23:10 09/16/22 23:00 09/16/22 22:50 09/16/22 22:40 09/16/22 22:30 09/16/22 22:20 09/16/22 22:10 09/16/22 22:01 09/16/22 22:00 09/16/22 21:50 09/16/22 21:40 09/16/22 21:31 09/16/22 21:30 09/16/22 21:20 09/16/22 21:10 09/16/22 21:09 09/16/22 21:00 09/16/22 20:50 09/16/22 20:40 09/16/22 22:26 Laboratory Results Cardiac Enzymes 09/16/22 09/16/22 Range/Units 19:14 20:55 AST TNP 36 Troponin I High Sens 4.7 (0-14) pg/ml Coagulation 09/16/22 09/16/22 09/17/22 Range/Units 19:16 23:15 07:47 APTT Cancelled 25.0 60.6 H* CBC 09/16/22 09/17/22 Range/Units 19:14 07:47 WBC 15.33 H 10.92 H (4.8-10.8) K/ul RBC 5.17 4.34 (4.20-5.40) M/uL Hgb 15.8 13.1 (12.0-16.0) g/dl Hct 47.4 H 39.2 (37.0-47.0) % Plt Count 252 243 (130-400) K/uL Neut # (Auto) 13.54 H 7.13 H (1.40-6.50) K/uL Lymph # (Auto) 1.22 2.88 (1.2-3.4) K/uL [place] # (Auto) 0.44 0.71 H (0.11-0.59) K/uL Eos # (Auto) 0.02 0.12 (0-0.50) K/uL Baso # (Auto) 0.04 0.05 (0-0.2) K/uL Comprehensive Metabolic Panel 09/16/22 09/16/22 09/17/22 Range/Units 19:14 20:55 07:55 Sodium 143 141 (136-145) mmol/L Potassium TNP 3.4 L 4.0 Chloride 101 105 (98-107) mmol/L Carbon Dioxide 32 26 (21-32) mmol/L BUN 35 H 29 H (6-23) mg/dl Creatinine 0.88 0.90 (0.6-1.2) mg/dl Glucose 95 124 H (70-99(Fasting)) mg/dl Calcium 9.9 8.6 (8.6-10.3) mg/dl AST TNP 36 ALT 33 (7-52) U/L Alkaline Phosphatase 57 (34-104) U/L Total Protein 7.6 (6.0-8.3) gm/dl Albumin 4.3 (3.4-5.0) gm/dl Intake and Output 09/16/22 09/17/22 09/17/22 22:59 06:59 14:59 Intake Total 620 / 1020 400 / 1020 281.35 / 281.35 Output Total 200 / 200 Balance 620 / 820 200 / 820 281.35 / 281.35 Intake: IV 620 / 920 300 / 920 281.35 / 281.35 Acetaminophen 1,000 mg In 100 100 / 100 ml @ 400 mls/hr IV NOW STA Rx#: [id number] Heparin Sodium/Dextrose 25,000 161.35 / 161.35 units In 500 ml @ 1,050 UNITS/ HR 21 mls/hr IV .[id number] [facility] Rx #:[id number] Magnesium Sulfate / D5w 1 gm In 200 / 200 100 ml @ 50 mls/hr IV Q2H [facility] Rx#:[id number] Piperacillin/Tazobactam 4.5 gm 120 / 120 In 120 ml @ 240 mls/hr IV NOW ONE Rx#:[id number] Piperacillin/Tazobactam 4.5 gm 120 / 120 In Dextrose 5% 100 ml @ 30 mls/ hr IV Q8H [facility] Rx#:[id number] Sodium Chloride 0.9% 1000ML 500 500 / 500 ml @ 999 mls/hr IV .Q31M [facility] Rx#:[id number] Oral 100 / 100 Output: Urine 200 / 200 Other: Weight 69.9 kg 67.9 kg Weight Measurement Method Chair Scale Built in [facility]
[2022-09-17 08:58] LABS: Partial Thromboplastin Ratio 2.1
[2022-09-17] MEDS ORDERED: METOPROLOL TARTRATE 25 MG TAB PO SCH ×2 (09:00→21:00)
[2022-09-17 09:09] LABS: Partial Thromboplastin Time 60.6 Seconds (21.0-31.0)
[2022-09-17] MEDS: DOCUSATE SODIUM/SENNA 50/8.6MG TAB PO SCH (09:33)
[2022-09-17] MEDS: ASPIRIN 81 MG ECTAB PO SCH (09:34)
[2022-09-17] MEDS: amLODIPine BESYLATE 5 MG TAB PO SCH (09:34)
[2022-09-17] MEDS: MULTIVITAMIN TAB PO SCH (09:35)
[2022-09-17] MEDS: DORZOLAMIDE/TIMOLOL 22.3/6.8MG/ML 10 ML BTL OPB SCH ×2 (09:35→21:45)
[2022-09-17] MEDS: PANTOprazole 40 MG TAB PO SCH ×2 (09:36→21:46)
--- NOTE | 2022-09-17 11:10 | Gastrointestinal Consultation ---
Date of Consultation September 17, 2022 Assessment & Plan (1) Constipation: Patient is an 81 years old female who initially presented with constipation, relief with soapsuds enema in the ER, subsequently admitted for further cardiac evaluation given symptoms of tachycardia, hypertension and EKG changes. GI consulted as she had signs of possible enteritis and proctitis on her CT abdomen and pelvis with contrast. Her abdominal exam is quite benign this morning without distention, guarding, bowel sounds are present. She is complaining of rectal pain. Doubt that she has enteritis or diarrheal illness. She may have stercoral proctitis given her degree of constipation. - Daily bowel regimen: Miralax 17g daily to BID - Fiber 2 tsp daily - Recommend f/u outpt colonoscopy to r/o colon/rectal mass within 6-8 week's time after her DC and cleared from Cardiology standpoint - GI to sign off; pls recall prn Supervising Physician Co-Signing Physician Notes Much improved in terms of her symptoms post soap suds enema. Soft abdomen, agree with further plan of care as documented. Rectal pain likely from recent stool burden and proctitis as a result of that, now resolved. Agree wtih further plan of care as documented. History of Present Illness Reason for Consultation: Abnormal CT findings Requesting Physician: Dr. Jayson Shah Attending Physician: Dr. Kalyn Gunn History of Present Illness Patient is a 61 years old female with past medical history as noted below who initially presented to the ED yesterday with complaints of constipation. Reports that her last bowel movement was about a week ago. She is having trouble with rectal pain and inability to have bowel movement, had to manually disimpact herself. She has associated nausea but no vomiting. Denies any fevers or chills, chest pain or shortness of breath. Last week she was actually admitted here with bronchitis and received antibiotics. She had a soapsuds enema in the ED and had a large bowel movement overnight. Subsequently she developed tachycardia and hypertension with EKG showing T wave inversions in the inferior and anterolateral leads. She was thus admitted for further cardiology work-up. Echocardiogram showed signs of first-degree AV block and moderate aortic regurgitation. GI consulted as her CT abdomen and pelvis with contrast yesterday showed signs of fluid and gas-filled small bowel loops which could r epresent enteritis as well as wall thickening in the rectum concerning for proctitis, neoplasm cannot be excluded. Evaluation of her stomach is limited by under distention, gastritis or neoplasm cannot be excluded. This morning, patient reports that she has some tenderness in the rectum area but denies any abdominal pain, nausea or vomiting. She takes Fioricet at home but no narcotics otherwise. She reports that usually her bowels are moving regularly and she does not take any stool softeners or fiber. Her last colonoscopy was done in 2007 with findings of diverticulosis. 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 Allergies Allergy/AdvReac Type Severity Reaction Status Date / Time No Known Allergies Allergy Verified 09/16/22 18:28 Home Medications Medication Instructions Recorded Confirmed Type gabapentin 300 mg capsule 600 mg PO QID 05/03/18 09/16/22 History magnesium oxide 400 mg PO QAM 05/03/18 09/16/22 History multivitamin 1 tab PO QAM 05/03/18 09/16/22 History omeprazole 20 mg tablet,delayed 20 mg PO BID 05/03/18 09/16/22 History release calcitriol 0.5 mcg capsule 1 mcg PO QAM 06/01/18 09/16/22 History (Rocaltrol) dorzolamide 22.3 mg-timolol 6.8 1 drp OPB BID 06/01/18 09/16/22 History mg/mL eye drops (Cosopt) duloxetine 60 mg capsule,delayed 60 mg PO DAILY 06/01/18 09/16/22 History release (Cymbalta) indapamide 2.5 mg tablet 2.5 mg PO DAILY 06/01/18 09/16/22 History latanoprost 0.005 % eye drops 1 drp ophthalmic (eye) HS 06/01/18 09/16/22 History (Xalatan) aspirin 81 mg tablet,delayed 81 mg PO QAM 06/24/20 09/16/22 History release (Ed Low Dose Aspirin) amlodipine 2.5 mg tablet 2.5 mg PO DAILY 09/04/22 09/16/22 History rosuvastatin 10 mg tablet 10 mg PO HS 09/04/22 09/16/22 History dserefenez-rhaoyistynvmp-iekagjzn 1 cap PO Q8H PRN headache #20 caps 09/06/22 09/16/22 Rx 50 mg-300 mg-40 mg capsule (Fioricet) fluticasone propionate 50 1 spray intranasal HS 09/16/22 09/16/22 History mcg/actuation nasal spray,suspension (Flonase Allergy Relief) tizanidine 2 mg tablet 2 mg PO TID PRN Muscle Spasm 09/16/22 09/16/22 History Patient History Medical History Bilateral tinnitus Chronic pain both feet and legs Closed fracture of distal end of right fibula Dyslipidemia GERD (gastroesophageal reflux disease) Glaucoma H/O parathyroidectomy History of hydronephrosis HTN (hypertension) Hyperlipidemia Migraine Nephrolithiasis Neuropathy BOTH FEET AND LEGS Osteoporosis Vitamin D deficiency Surgical History H/O parathyroidectomy "09/26/13" History of back surgery lower Hx of bilateral cataract extraction Hx of cholecystectomy Family History Other Cancer Social History Smoking Status: Former smoker Tobacco Type: Cigarettes Second Hand Exposure: No; Do You Dip or Chew Tobacco: No; Hx Alcohol Use: No Hx Substance Use: No Preferred Language: Malay Communication Ability: Effective Valet Manager Required: No Beliefs That Will Affect Care: None marital status: / Current Living Situation: Family Current Living Situation Comment: lives with daughter and granddaughter How many Children do You have: 2 Feels Safe at Home: Yes Safety Concerns: Feels Safe At This Time Assistive Devices: Glasses and Walker Assistive Devices Comment: glasses present Review of Systems Review of Systems: All systems reviewed & are unremarkable except as noted in HPI & below Physical Exam Constitutional: WD/WN, vitals as above well groomed, cooperative and comfortable Eyes: PERRL, conjunctivae normal, anicteric sclerae ENMT: external ear and nose normal, oropharynx normal Respiratory: normal respiratory effort, lungs clear to auscultation Cardiovascular: RRR, no murmur, no edema Gastrointestinal (Abdomen): normal bowel sounds, soft, nontender, no hepatosplenomegaly Skin: no rashes, warm and dry no jaundice Psychiatric: A+Ox3, euthymic affect Lymphatic: no lymphedema Results & Data Vital Signs (Past 12 Hours) Vital Signs Temp Pulse Pulse Resp BP Pulse Ox O2 Del Method 09/17/22 08:00 36.8 C 66 18 115/68 97 Room Air 09/17/22 07:20 53 L 09/17/22 03:36 36.6 C 55 L 18 107/60 92 Room Air 09/17/22 01:09 51 L 09/17/22 01:14 36.3 C L 64 16 144/71 H 94 Room Air 09/16/22 23:30 121 H 19 94 09/16/22 23:20 112 H 18 93 09/16/22 23:10 81 23 92
--- NOTE | 2022-09-17 14:22 | Hospitalist Progress Note ---
Date of Service September 17, 2022 Assessment & Plan (1) Acute electrocardiogram changes: Plan: Ischemic EKG No evidence of ACS Noted to have Wenckebach with bradycardia Beta-sav has been stopped Echo of the heart showed sinus bradycardia with first-degree AV block, normal LV size with mild concentric hypertrophy, normal wall motion with normal LV systolic function with EF 60 to 65%, aortic valve leaflets are moderately calcified with moderate aortic regurgitation and there is mild mitral annular calcification (2) Tachycardia: Plan: Paroxysmal atrial fibrillation/tachycardia-new onset and resolved Has Wenckebach IV heparin has been discontinued and beta-sav has been discontinued Appreciate cardiology input and recommendation Will need outpatient ZIO monitor To maintain electrolytes (3) Constipation: Plan: Nonspecific abdominal pain and the CT of the abdomen pelvis showed nonspecific colitis/proctitis/gastritis Has had loose bowel movements prior to admission Stool test has been negative She has been on Zosyn-blood cultures have been pending Appreciate GI input and recommendation Has been getting laxatives regularly Will have outpatient colonoscopy Bowel has been moving (4) HTN (hypertension): Plan: Blood pressure noted to be very high on admission at 182/100 Remains on the lower side as of this morning (5) H/O parathyroidectomy: (6) Neuropathy: Plan: Please refer to Dr. Torres's addendum for assessment and plan. Plan DVT prophylaxis Subcu heparin CODE STATUS Full Admission and Anticipated Discharge Date Admission Date: September 16, 2022 Subjective 09/17/2022 The patient was seen and examined in telemetry unit She has been feeling much better today and denies any significant abdominal pain, nausea, vomiting or diarrhea Denies any palpitation, chest pain and/or shortness of breath Review of Systems Review of Systems: All systems reviewed and are unremarkable except as noted below Physical Exam Physical Exam: Lying in bed without any acute distress Constitutional: well developed, well nourished, + ill appearing and + obese Eyes: PERRL, conjunctivae normal, anicteric sclerae ENMT: external ear and nose normal, oropharynx normal Neck: trachea midline, no thyromegaly Respiratory: no respiratory distress Auscultation: lungs clear to auscultation bilaterally Cardiovascular: Rate/Rhythm: regular rate and regular rhythm; not tachycardic Heart Sounds: normal S1 and normal S2; no murmur Extremities: no edema Gastrointestinal (Abdomen): Inspection/Auscultation: normal bowel sounds; abdomen not distended Percussion/Palpation: abdomen soft; abdomen nontender Musculoskeletal: No acute arthritis involving any joint Neurologic: normal touch/pain/proprioception and moves all extremities; no focal motor deficits Psychiatric: A+Ox3, euthymic affect Lymphatic: no cervical or axillary lymphadenopathy Results & Data Results & Data Vital Signs (Past 12 Hours) Vital Signs Temp Pulse Pulse Resp BP Pulse Ox O2 Del Method 09/17/22 11:00 37.0 C 75 18 125/72 96 Room Air 09/17/22 08:00 36.8 C 66 18 115/68 97 Room Air 09/17/22 07:20 53 L 09/17/22 03:36 36.6 C 55 L 18 107/60 92 Room Air Laboratory Results Short CBC 09/16/22 09/17/22 Range/Units 19:14 07:47 WBC 15.33 H 10.92 H (4.8-10.8) K/ul Hgb 15.8 13.1 (12.0-16.0) g/dl Hct 47.4 H 39.2 (37.0-47.0) % Plt Count 252 243 (130-400) K/uL BMP 09/16/22 09/16/22 09/17/22 19:14 20:55 07:55 Sodium 143 141 Potassium TNP 3.4 L 4.0 Chloride 101 105 Carbon Dioxide 32 26 BUN 35 H 29 H Creatinine 0.88 0.90 Glucose 95 124 H Calcium 9.9 8.6 Liver Function 09/16/22 09/16/22 Range/Units 19:14 20:55 Total Bilirubin 0.5 (0.2-1.0) mg/dl AST TNP 36 ALT 33 (7-52) U/L Alkaline Phosphatase 57 (34-104) U/L Albumin 4.3 (3.4-5.0) gm/dl Diagnostic Findings Laboratory Results WBC 10.92 K/ul (4.8-10.8) H 09/17/22 07:47 RBC 4.34 M/uL (4.20-5.40) 09/17/22 07:47 Hgb 13.1 g/dl (12.0-16.0) 09/17/22 07:47 Hct 39.2 % (37.0-47.0) 09/17/22 07:47 MCV 90.3 fL (80.0-100.0) 09/17/22 07:47 MCH 30.2 pg (25.0-34.0) 09/17/22 07:47 MCHC 33.4 g/dL (32.0-36.0) 09/17/22 07:47 RDW Std Deviation 43.9 fL (36.4-46.3) 09/17/22 07:47 RDW Coeff of Didi 13.4 % (11.5-14.5) 09/17/22 07:47 Plt Count 243 K/uL (130-400) 09/17/22 07:47 MPV 10.1 fL (9.4-12.4) 09/17/22 07:47 Immature Gran % (Auto) 0.3 % 09/17/22 07:47 Neut % (Auto) 65.2 % 09/17/22 07:47 Lymph % (Auto) 26.4 % 09/17/22 07:47 [place] % (Auto) 6.5 % 09/17/22 07:47 Eos % (Auto) 1.1 % 09/17/22 07:47 Baso % (Auto) 0.5 % 09/17/22 07:47 Neut # (Auto) 7.13 K/uL (1.40-6.50) H 09/17/22 07:47 Lymph # (Auto) 2.88 K/uL (1.2-3.4) 09/17/22 07:47 [place] # (Auto) 0.71 K/uL (0.11-0.59) H 09/17/22 07:47 Eos # (Auto) 0.12 K/uL (0-0.50) 09/17/22 07:47 Baso # (Auto) 0.05 K/uL (0-0.2) 09/17/22 07:47 Immature Gran # (Auto) 0.03 K/uL (0.01-0.20) 09/17/22 07:47 APTT 60.6 Seconds (21.0-31.0) H* 09/17/22 07:47 PTT Ratio 2.1 09/17/22 07:47 Sodium 141 mmol/L (136-145) 09/17/22 07:55 Potassium 4.0 mmol/L (3.5-5.1) 09/17/22 07:55 Chloride 105 mmol/L (98-107) 09/17/22 07:55 Carbon Dioxide 26 mmol/L (21-32) 09/17/22 07:55 Anion Gap 10 (3-11) 09/17/22 07:55 BUN 29 mg/dl (6-23) H 09/17/22 07:55 Creatinine 0.90 mg/dl (0.6-1.2) 09/17/22 07:55 Est Cr Clr Drug Dosing 45.4 ml/min 09/17/22 07:55 Est GFR ( Amer) 69.5 ml/min 09/17/22 07:55 Est GFR (Non-Af Amer) 60.0 ml/min 09/17/22 07:55 BUN/Creatinine Ratio 32.2 (10-20) H 09/17/22 07:55 Glucose 124 mg/dl (70-99(Fasting)) H 09/17/22 07:55 Lactate 1.7 mmol/L (0.4-2.0) 09/16/22 21:47 Calcium 8.6 mg/dl (8.6-10.3) 09/17/22 07:55 Magnesium 2.4 mg/dl (1.7-2.4) 09/17/22 07:55 Total Bilirubin 0.5 mg/dl (0.2-1.0) 09/16/22 19:14 AST 36 U/L (13-39) 09/16/22 20:55 ALT 33 U/L (7-52) 09/16/22 19:14 Alkaline Phosphatase 57 U/L (34-104) 09/16/22 19:14 Troponin I High Sens 4.7 pg/ml (0-14) 09/16/22 19:14 Total Protein 7.6 gm/dl (6.0-8.3) 09/16/22 19:14 Albumin 4.3 gm/dl (3.4-5.0) 09/16/22 19:14 Globulin 3.3 gm/dl (2.5-4.0) 09/16/22 19:14 Albumin/Globulin Ratio 1.3 (0.9-2) 09/16/22 19:14 TSH 1.035 uIu/ml (0.300-4.500) 09/16/22 21:49 SARS-CoV-2, RNA, NAAT NEGATIVE (NEGATIVE) 09/16/22 21:16 Impressions KUB X-Ray 09/16/22 17:43 XR KUB/Abdomen 1 view CLINICAL HISTORY: constipation TECHNIQUE: 1 view of the abdomen was obtained. Comparison: Comparison is made to abdomen radiograph 06/25/2020 FINDINGS: Lung bases are unremarkable. Degenerative changes are seen in the visualized skeleton. The bowel gas pattern is nonobstructive. A moderate amount of stool is noted within the large bowel. IMPRESSION: Nonobstructive bowel gas pattern. ACT 112: Negative or not required by law. Electronically signed by: Wander Estevez M.D. 09/16/2022 6:34 PM Abdomen/Pelvis CT 09/16/22 19:53 Exam(s): CT ABDOMEN + PELVIS With Contrast IV Amt: 83 ml optiray 320 EXAM: CT Abdomen and Pelvis With Intravenous Contrast CLINICAL HISTORY: Reason for exam: rectal discomfort, constipation, elev wbc. TECHNIQUE: Axial computed tomography images of the abdomen and pelvis with intravenous contrast. CTDI is 17.45 mGy and DLP is 860.1 mGy-cm. Automated exposure control was utilized for the study. A dose lowering technique was utilized adhering to the principles of ALARA. CONTRAST: Patient received 83 ml optiray 320 of IV contrast COMPARISON: CT abdomen/pelvis on 06/24/2020 FINDINGS: Lung bases: Bibasilar atelectasis. Heart: Coronary artery and aortic valve calcifications. ABDOMEN: Liver: Unremarkable. No mass. Gallbladder and bile ducts: Prior cholecystectomy. Probable postcholecystectomy ductal ectasia. Pancreas: Unremarkable. No mass. No ductal dilation. Spleen: Unremarkable. No splenomegaly. Adrenals: Unremarkable. No mass. Kidneys and ureters: Small bilateral renal cysts. Other small hypodensities in the kidneys are too small to definitively characterize. No hydronephrosis or obstructing stone. Stomach and bowel: Wall thickening of the rectum is concerning for proctitis. Neoplasm is not excluded. Evaluation of the stomach is limited by underdistention. Gastritis or neoplasm is not excluded. Fluid and gas-filled small bowel loops could represent enteritis in the appropriate Clinical setting. Duodenal diverticulum. Colonic diverticulosis without evidence of diverticulitis. PELVIS: Appendix: Appendix is not visualized on this exam. Bladder: Unremarkable. No mass. Reproductive: Probable uterine fibroids. ABDOMEN and PELVIS: Intraperitoneal space: Unremarkable. No free air. No significant fluid collection. Bones/joints: Left convex curvature of the spine. Degenerative changes of the spine. No acute fracture. No dislocation. Soft tissues: Injection granuloma in the right gluteal soft tissues. Small fat-containing umbilical hernia. Vasculature: Atherosclerotic changes of the vasculature. Ectasia or mild aneurysmal dilatation in the distal abdominal aorta measuring 2.2 cm. No aortic dissection. Lymph nodes: Unremarkable. No enlarged lymph nodes. IMPRESSION: 1. Wall thickening of the rectum is concerning for proctitis. Neoplasm is not excluded. 2. Evaluation of the stomach is limited by underdistention. Gastritis or neoplasm is not excluded. 3. Fluid and gas-filled small bowel loops could represent enteritis in the appropriate Clinical setting. Electronically signed by: Albaro Jean Baptiste M.D. 09/16/22 20:40 PM Chest X-Ray 09/16/22 21:22 XR chest 1V portable CLINICAL HISTORY: tachy TECHNIQUE: Single frontal radiograph of the chest was obtained. Comparison: Comparison is made to chest radiograph 09/04/2022 FINDINGS: No lines and tubes are seen. Calcified aortic knob is seen. Lungs are underinflated but clear. No evidence of pleural effusion or pneumothorax. IMPRESSION: No acute chest disease. ACT 112: Negative or not required by law. Electronically signed by: Wander Estevez M.D. 09/17/2022 7:44 AM Medications Administered Current Inpatient Medications Acetaminophen (Acetaminophen 325 Mg Tab) 650 mg PO Q4H PRN PRN Reason: Pain or Fever Stop: 10/17/22 00:36 Amlodipine Besylate (Amlodipine Besylate 5 Mg Tab) 2.5 mg PO DAILY [facility] Stop: 10/17/22 08:59 Last Admin: 09/17/22 09:34 Dose: 2.5 mg Aspirin (Aspirin 81 Mg Ectab) 81 mg PO QAM [facility] Stop: 10/17/22 08:59 Last Admin: 09/17/22 09:34 Dose: 81 mg Dorzolamide/Timolol (Dorzolamide/Timolol 22.3/6.8mg/Ml 10 Ml Btl) 1 drops OPB BID [facility] Stop: 10/17/22 08:59 Last Admin: 09/17/22 09:35 Dose: 1 drops Gabapentin (Gabapentin 300 Mg Cap) 300 mg PO TID [facility] Stop: 10/17/22 00:59 Last Admin: 09/17/22 09:35 Dose: 300 mg Potassium Chloride/Sodium Chloride (Normal Saline W/20 Meq Kcl) 20 meq in 1,000 mls @ 60 mls/hr IV .[id number] ONE; Protocol Stop: 09/17/22 15:36 Last Admin: 09/16/22 23:18 Dose: 60 mls/hr Promethazine HCl 6.25 mg/ (Sodium Chloride) 50.25 mls @ 201 mls/hr IV Q6H PRN PRN Reason: Nausea And Vomiting Stop: 10/17/22 00:36 Piperacillin Sod/Tazobactam (Sod 4.5 gm/ Dextrose) 120 mls @ 30 mls/hr IV Q8H [facility]; Protocol Stop: 09/27/22 03:59 Last Admin: 09/17/22 12:20 Dose: 30 mls/hr Latanoprost (Latanoprost 0.005% Op Soln 2.5 Ml Btl) 1 drops OP HS [facility] Stop: 10/17/22 20:59 Multivitamins (Multivitamin Tab) 1 tab PO QAM [facility] Stop: 10/17/22 08:59 Last Admin: 09/17/22 09:35 Dose: 1 tab Pantoprazole Sodium (Pantoprazole 40 Mg Tab) 40 mg PO BID [facility]; Protocol Stop: 10/17/22 08:59 Last Admin: 09/17/22 09:36 Dose: 40 mg Polyethylene Glycol (Polyethylene (Miralax) 17 Gm Pack) 17 gm PO DAILY PRN PRN Reason: Constipation Stop: 10/17/22 00:36 Rosuvastatin Calcium (Rosuvastatin Calcium 10 Mg Tab) 10 mg PO HS [facility] Stop: 10/17/22 20:59 Senna/Docusate Sodium (Docusate Sodium/Senna 50/8.6mg Tab) 1 tab PO QAM [facility] Stop: 10/17/22 08:59 Last Admin: 09/17/22 09:33 Dose: Not Given Tramadol HCl (Tramadol Hcl 50 Mg Tablet) 25 mg PO Q4H PRN PRN Reason: Pain Stop: 10/17/22 00:36
[2022-09-17] MEDS: ACETAMINOPHEN 325 MG TAB PO PRN (16:28)
[2022-09-17] MEDS: ROSUVASTATIN CALCIUM 10 MG TAB PO SCH (21:46)
[2022-09-17] MEDS: LATANOPROST 0.005% OP SOLN 2.5 ML BTL OP SCH (22:42)
[2022-09-18 01:22] LABS: Appearance Urine Clear (Clear); Bacteria Urine Automated Negative (Negative); Bilirubin Urine Negative (Negative); Blood Urine 2+ (Negative); Cast Urine Automated 0 /lpf (0-5); Color Urine Yellow; Glucose Urine UA Negative (Negative); Ketones Urine Negative (Negative); Leukocyte Esterase Urine Trace (Negative); Nitrite Urine Negative (Negative); Protein Urine Negative (Negative); RBC Urine Automated 0-4 /hpf (0-4); Urobilinogen Urine Negative (Negative)
[2022-09-18] MEDS: PIPERACILLIN/TAZOBACTAM 4.5 GM in DEXTROSE 5% 100 ML IV SCH ×3 (04:47→19:35)
[2022-09-18] MEDS: ACETAMINOPHEN 325 MG TAB PO PRN ×3 (05:45→20:07)
[2022-09-18 06:29] LABS: Basophils # (auto) 0.05 K/uL (0-0.2); Basophils % (auto) 0.6 %; Eosinophils # (auto) 0.44 K/uL (0-0.50); Eosinophils % (auto) 5.5 %; Hematocrit (blood only) 39.1 % (37.0-47.0); Immature Granulocytes # (auto) 0.04 K/uL (0.01-0.20); Immature Granulocytes % (auto) 0.5 %; Lymphocytes # (auto) 2.63 K/uL (1.2-3.4); Lymphocytes % (auto) 32.9 %; Mean Corpuscular Hemoglobin 30.5 pg (25.0-34.0); Mean Corpuscular Hgb Conc 33.2 g/dL (32.0-36.0); Mean Corpuscular Volume 91.8 fL (80.0-100.0); Monocytes # (auto) 0.52 K/uL (0.11-0.59); Monocytes % (auto) 6.5 %; Neutrophils # (auto) 4.32 K/uL (1.40-6.50); Platelet Count 197 K/uL (130-400); RDW Coefficient of Variation 13.3 % (11.5-14.5); RDW Standard Deviation 45.1 fL (36.4-46.3); Red Blood Count 4.26 M/uL (4.20-5.40)
[2022-09-18 08:32] LABS: Potassium 3.4 mmol/L (3.5-5.1)
[2022-09-18 08:38] LABS: BUN Creatinine Ratio 23.4 (10-20); Creatinine Clr Calc Pharmacy 43.7 ml/min; Est GFR (African American) 65.9 ml/min; Est GFR (Non-African American) 56.9 ml/min
--- NOTE | 2022-09-18 08:56 | Cardiology Progress Note ---
Date of Service September 18, 2022 Assessment & Plan (1) Tachy-bob syndrome: (2) Atrial tachycardia, paroxysmal: (3) Wenckebach: (4) HTN (hypertension): Plan IMPRESSION: 81 year old female who initially presented to the ED due to severe rectal pain/constipation- found to have proctitis. Developed tachycardia during soapsuds enema. Questionable episode of PAF- cardiology consulted. Echo with normal LVEF, no wall motion abnormalities. LA/RA normal in size. Telemetry reviewed- patient was primary in sinus rhythm/sinus tach with episodes of MAT/PAT. Patient was asymptomatic. Now experiencing SB on monitor with HR in the low 50s, Wenckebach noted on EKG- beta sav was stopped (this was a new medication for the patient). Patient borderline tachybrady- asymptomatic. PLAN: We will initiate low-dose beta-sav while in hospital and following Case discussed with Dr. Pacheco. Will follow. Admission and Anticipated Discharge Date Admission Date: September 16, 2022 Supervising Physician Co-Signing Physician Notes Patient was seen and personally examined. Still having episodes of atrial tac hycardia Assessment as outlined above and amended by myself We will begin metoprolol to tartrate 12.5 mg twice per day maintain on telemetry overnight Subjective 81 year old female who initially presented to the ED due to severe rectal pain/constipation- found to have proctitis. Developed tachycardia during soapsuds enema. Questionable episode of PAF- cardiology consulted. Telemetry revealing SR/ST with frequent PACs/PAT. Beta sav held due to bradycardia and Wenckebach on EKG. 09/18: Upon entrance into the room patient resting in bed. Tearful- continues to have significant diarrhea. No cardiac complaints. Telemetry revealing atrial tachycardia with blocked PAC with heart rates anywhere from 50-100 bpms. Rhythm of the appears to be NSR with frequent and blocked PACs. Patient asymptomatic. No palpitations, lightheadedness/dizziness. Denies chest pain or shortness of breath. Review of Systems Review of Systems: All systems reviewed & are unremarkable except as noted in HPI & below Physical Exam Constitutional: WD/WN, vitals as above no acute distress Eyes: PERRL, conjunctivae normal, anicteric sclerae Neck: normal visual inspection and trachea midline Respiratory: normal respiratory effort, lungs clear to auscultation Cardiovascular: RRR, no murmur, no edema Heart Sounds: normal S1 and normal S2 Vessels: no JVD Extremities: no edema Gastrointestinal (Abdomen): normal bowel sounds, soft, nontender, no hepatosplenomegaly Musculoskeletal: no cyanosis or clubbing, extremities motor strength 5/5 Skin: no rashes, warm and dry Psychiatric: A+Ox3, euthymic affect Results & Data Vital Signs (Past 12 Hours) Vital Signs Temp Pulse Pulse Resp BP Pulse Ox O2 Del Method 09/18/22 07:49 36.5 C 87 18 136/73 92 Room Air 09/18/22 03:00 36.3 C L 73 20 169/51 H 95 Room Air 09/17/22 22:01 55 L 09/17/22 21:40 Room Air 09/17/22 23:00 36.4 C L 70 16 154/70 H 93 Room Air Laboratory Results Coagulation 09/17/22 Range/Units 07:47 APTT 60.6 H* (21.0-31.0) Seconds CBC 09/18/22 Range/Units 06:08 WBC 8.00 (4.8-10.8) K/ul RBC 4.26 (4.20-5.40) M/uL Hgb 13.0 (12.0-16.0) g/dl Hct 39.1 (37.0-47.0) % Plt Count 197 (130-400) K/uL Neut # (Auto) 4.32 (1.40-6.50) K/uL Lymph # (Auto) 2.63 (1.2-3.4) K/uL [place] # (Auto) 0.52 (0.11-0.59) K/uL Eos # (Auto) 0.44 (0-0.50) K/uL Baso # (Auto) 0.05 (0-0.2) K/uL Comprehensive Metabolic Panel 09/18/22 Range/Units 06:08 Sodium 143 (136-145) mmol/L Potassium 3.4 L (3.5-5.1) mmol/L Chloride 105 (98-107) mmol/L Carbon Dioxide 28 (21-32) mmol/L BUN 22 (6-23) mg/dl Creatinine 0.94 (0.6-1.2) mg/dl Glucose 109 H (70-99(Fasting)) mg/dl Calcium 8.0 L (8.6-10.3) mg/dl Intake and Output 09/17/22 09/18/22 09/18/22 22:59 06:59 14:59 Intake Total 1120 / 1521.35 120 / 1521.35 Output Total 300 / 1300 Balance 1120 / 221.35 -180 / 221.35 Intake: IV 1120 / 1521.35 120 / 1521.35 Nss + 20Meq KCl 20 meq In 1,000 1000 / 1000 ml @ 60 mls/hr IV .[id number] ONE Rx#:[id number] Piperacillin/Tazobactam 4.5 gm 120 / 360 120 / 360 In Dextrose 5% 100 ml @ 30 mls/ hr IV Q8H [facility] Rx#:[id number] Output: Urine 300 / 300 Other: Other Intake Source Sips # Unmeasured Voids 1 1 Weight 68.8 kg Weight Measurement Method Built in [facility]
[2022-09-18] MEDS ORDERED: POTASSIUM CHLORIDE CRTAB 20 MEQ TABCR PO STA (09:05)
[2022-09-18] MEDS: DOCUSATE SODIUM/SENNA 50/8.6MG TAB PO SCH (10:00)
[2022-09-18] MEDS: amLODIPine BESYLATE 5 MG TAB PO SCH (10:01)
[2022-09-18] MEDS: DORZOLAMIDE/TIMOLOL 22.3/6.8MG/ML 10 ML BTL OPB SCH ×2 (10:02→20:11)
[2022-09-18] MEDS: ASPIRIN 81 MG ECTAB PO SCH (10:02)
[2022-09-18] MEDS: PANTOprazole 40 MG TAB PO SCH ×2 (10:03→20:11)
[2022-09-18] MEDS: MULTIVITAMIN TAB PO SCH (10:03)
[2022-09-18] MEDS: GABAPENTIN 300 MG CAP PO SCH (10:03)
[2022-09-18] MEDS ORDERED: tiZANidine HCL 4 MG TABLET PO PRN (11:23)
[2022-09-18] MEDS: DULoxetine HCL 60 MG CAP PO SCH (12:02)
[2022-09-18] MEDS ORDERED: METOPROLOL TARTRATE 50 MG TAB PO ONE (13:30)
[2022-09-18] MEDS: GABAPENTIN 600 MG TAB PO SCH ×2 (14:30→20:10)
--- NOTE | 2022-09-18 15:41 | Hospitalist Progress Note ---
Date of Service September 18, 2022 Assessment & Plan (1) Acute electrocardiogram changes: Plan: Ischemic EKG No evidence of ACS Noted to have Wenckebach with bradycardia Beta-sav has been stopped Echo of the heart showed sinus bradycardia with first-degree AV block, normal LV size with mild concentric hypertrophy, normal wall motion with normal LV systolic function with EF 60 to 65%, aortic valve leaflets are moderately calcified with moderate aortic regurgitation and there is mild mitral annular calcification (2) Tachycardia: Plan: Paroxysmal atrial fibrillation/tachycardia-new onset and resolved Has Wenckebach IV heparin has been discontinued and beta-sav has been discontinued Appreciate cardiology input and recommendation Will need outpatient ZIO monitor To maintain electrolytes Remains stable from cardiac point of view no more bradycardia (3) Constipation: Plan: Nonspecific abdominal pain and the CT of the abdomen pelvis showed nonspecific colitis/proctitis/gastritis Has had loose bowel movements prior to admission Stool test has been negative She has been on Zosyn-blood cultures have been pending Appreciate GI input and recommendation Has been getting laxatives regularly Will have outpatient colonoscopy She has been having diarrhea and a stools are negative for any significant pathogens Will start Imodium to control diarrhea while in the hospital Remains weak and lethargic and will get PT and OT evaluation and likely discharge tomorrow (4) HTN (hypertension): Plan: Blood pressure noted to be very high on admission at 182/100 Remains on the lower side as of this morning (5) H/O parathyroidectomy: (6) Neuropathy: Plan: Please refer to Dr. Torres's addendum for assessment and plan. Has been on gabapentin-we will restart the home dose of gabapentin History of depression She has been depressed and occasionally crying Antidepressant has been restarted Plan DVT prophylaxis Subcu heparin CODE STATUS Full Admission and Anticipated Discharge Date Admission Date: September 16, 2022 Subjective 09/17/2022 The patient was seen and examined in telemetry unit She has been feeling much better today and denies any significant abdominal pain, nausea, vomiting or diarrhea Denies any palpitation, chest pain and/or shortness of breath 09/18/2022 The patient was seen and examined in telemetry unit She remains generally weak and lethargic and still having diarrhea Denies any abdominal pain, nausea and or vomiting No tachycardia, no chest pain and her palpitation Denies any significant pain Review of Systems Review of Systems: All systems reviewed and are unremarkable except as noted below Physical Exam Physical Exam: Lying in bed without any acute distress Constitutional: well developed, well nourished, + ill appearing and + obese Eyes: PERRL, conjunctivae normal, anicteric sclerae ENMT: external ear and nose normal, oropharynx normal Neck: trachea midline, no thyromegaly Respiratory: no respiratory distress Auscultation: lungs clear to auscultation bilaterally Cardiovascular: Rate/Rhythm: regular rate and regular rhythm; not tachycardic Heart Sounds: normal S1 and normal S2; no murmur Extremities: no edema Gastrointestinal (Abdomen): Inspection/Auscultation: normal bowel sounds; abdomen not distended Percussion/Palpation: abdomen soft; abdomen nontender Musculoskeletal: No acute arthritis involving any of the joint Neurologic: normal touch/pain/proprioception and moves all extremities; no focal motor deficits Psychiatric: A+Ox3, euthymic affect Lymphatic: no cervical or axillary lymphadenopathy Results & Data Results & Data Vital Signs (Past 12 Hours) Vital Signs Temp Pulse Pulse Resp BP Pulse Ox O2 Del Method 09/18/22 15:20 36.4 C L 60 19 121/63 94 Room Air 09/18/22 07:08 75 09/18/22 11:06 36.9 C 101 H 19 140/76 98 Room Air 09/18/22 07:49 36.5 C 87 18 136/73 92 Room Air Laboratory Results Short CBC 09/18/22 Range/Units 06:08 WBC 8.00 (4.8-10.8) K/ul Hgb 13.0 (12.0-16.0) g/dl Hct 39.1 (37.0-47.0) % Plt Count 197 (130-400) K/uL BMP 09/18/22 06:08 Sodium 143 Potassium 3.4 L Chloride 105 Carbon Dioxide 28 BUN 22 Creatinine 0.94 Glucose 109 H Calcium 8.0 L Urine 09/18/22 Range/Units 01:12 Urine Color Yellow Urine Appearance Clear (Clear) Urine pH 5.0 (4.5-7.5) Ur Specific [place] 1.010 (1.000-1.030) Urine Protein Negative (Negative) Urine Glucose (UA) Negative (Negative) Medications Administered Current Inpatient Medications Acetaminophen (Acetaminophen 325 Mg Tab) 650 mg PO Q4H PRN PRN Reason: Pain or Fever Stop: 10/17/22 00:36 Last Admin: 09/18/22 12:02 Dose: 650 mg Amlodipine Besylate (Amlodipine Besylate 5 Mg Tab) 2.5 mg PO DAILY [facility] Stop: 10/17/22 08:59 Last Admin: 09/18/22 10:01 Dose: 2.5 mg Aspirin (Aspirin 81 Mg Ectab) 81 mg PO QAM [facility] Stop: 10/17/22 08:59 Last Admin: 09/18/22 10:02 Dose: 81 mg Calcitriol (Calcitriol 0.25 Mcg Capsule) 1 mcg PO QAM [facility] Stop: 10/19/22 08:59 Dorzolamide/Timolol (Dorzolamide/Timolol 22.3/6.8mg/Ml 10 Ml Btl) 1 drops OPB BID [facility] Stop: 10/17/22 08:59 Last Admin: 09/18/22 10:02 Dose: 1 drops Duloxetine HCl (Duloxetine Hcl 60 Mg Cap) 60 mg PO DAILY [facility] Stop: 10/18/22 11:59 Last Admin: 09/18/22 12:02 Dose: 60 mg Fluticasone Propionate (Fluticasone Propionate Na Spr 16 Gm Btl) 1 sprays NA HS [facility] Stop: 10/18/22 20:59 Gabapentin (Gabapentin 600 Mg Tab) 600 mg PO TID [facility] Stop: 10/18/22 13:59 Last Admin: 09/18/22 14:30 Dose: 600 mg Promethazine HCl 6.25 mg/ (Sodium Chloride) 50.25 mls @ 201 mls/hr IV Q6H PRN PRN Reason: Nausea And Vomiting Stop: 10/17/22 00:36 Piperacillin Sod/Tazobactam (Sod 4.5 gm/ Dextrose) 120 mls @ 30 mls/hr IV Q8H [facility]; Protocol Stop: 09/27/22 03:59 Last Admin: 09/18/22 12:02 Dose: 30 mls/hr Indapamide (Indapamide 1.25 Mg Tab) 2.5 mg PO DAILY [facility] Stop: 10/19/22 08:59 Latanoprost (Latanoprost 0.005% Op Soln 2.5 Ml Btl) 1 drops OP HS [facility] Stop: 10/17/22 20:59 Last Admin: 09/17/22 22:42 Dose: 1 drops Loperamide HCl (Loperamide Hcl 2 Mg Cap) 2 mg PO Q3H PRN PRN Reason: Diarrhea Stop: 10/18/22 11:31 Magnesium Oxide ([facility] 400 Mg Tab) [facility]: 10/19/22 08:59 Metoprolol Tartrate (Metoprolol Tartrate 25 Mg Tab) 12.5 mg PO BID [facility] Stop: 10/18/22 20:59 Multivitamins ([facility]ivitamin Tab) [facility]: 10/17/22 08:59 Last Admin: 09/18/22 10:03 Dose: 1 tab Pantoprazole Sodium (Pantoprazole 40 Mg Tab) 40 mg PO BID [facility]; Protocol Stop: 10/17/22 08:59 Last Admin: 09/18/22 10:03 Dose: 40 mg Polyethylene Glycol (Polyethylene (Miralax) 17 Gm Pack) 17 gm PO DAILY PRN PRN Reason: Constipation Stop: 10/17/22 00:36 Rosuvastatin Calcium (Rosuvastatin Calcium 10 Mg Tab) 10 mg PO [facility] Stop: 10/17/22 20:59 Last Admin: 09/17/22 21:46 Dose: 10 mg Senna/Docusate Sodium (Docusate Sodium/Senna 50/8.6mg Tab) [facility]: 10/17/22 08:59 Last Admin: 09/18/22 10:00 Dose: Not Given Tizanidine HCl (Tizanidine Hcl 4 Mg Tablet) 2 mg PO TID PRN PRN Reason: Muscle Spasm Stop: 10/18/22 11:22 Tramadol HCl (Tramadol Hcl 50 Mg Tablet) 25 mg PO Q4H PRN PRN Reason: Pain Stop: 10/17/22 00:36
[2022-09-18] MEDS: ROSUVASTATIN CALCIUM 10 MG TAB PO SCH (20:08)
[2022-09-18] MEDS: FLUTICASONE PROPIONATE NA SPR 16 GM BTL SCH (20:12)
[2022-09-18] MEDS: LATANOPROST 0.005% OP SOLN 2.5 ML BTL OP SCH (20:12)
[2022-09-18] MEDS: METOPROLOL TARTRATE 25 MG TAB PO SCH (20:19)
[2022-09-18] MEDS ORDERED: ALUMINUM/MAGNESIUM/SIMETH (MAALOX MAX) 30 ML UDC PO PRN (20:39)
--- NOTE | 2022-09-19 05:02 | Electrocardiogram Report ---
Test Reason : Blood Pressure : / mmHG Vent. Rate : 125 BPM Atrial Rate : 125 BPM P-R Int : 192 ms QRS Dur : 092 ms QT Int : 314 ms P-R-T Axes : 006 019 246 degrees QTc Int : 453 ms Sinus tachycardia Abnormal ECG When compared with ECG of 04-SEP-2022 14:38, T wave inversion now evident in Anterior leads T wave inversion now evident in Inferior leads Premature atrial complexes are no longer Present Confirmed by Yon Keene ([id number]) on 09/19/2022 5:02:26 AM Referred By: REFERRED SELF Confirmed By:Yon Keene
[2022-09-19] MEDS: PIPERACILLIN/TAZOBACTAM 4.5 GM in DEXTROSE 5% 100 ML IV SCH ×3 (05:09→20:29)
--- NOTE | 2022-09-19 05:11 | Electrocardiogram Report ---
Test Reason : Blood Pressure : / mmHG Vent. Rate : 126 BPM Atrial Rate : 000 BPM P-R Int : 000 ms QRS Dur : 076 ms QT Int : 300 ms P-R-T Axes : 000 026 260 degrees QTc Int : 434 ms Poor data quality, interpretation may be adversely affected Probable Sinus tachycardia Abnormal ECG When compared with ECG of 16-SEP-2022 18:48, T wave inversion less evident in Lateral leads Confirmed by Yon Keene ([id number]) on 09/19/2022 5:11:40 AM Referred By: REFERRED SELF Confirmed By:Yon Keene
--- NOTE | 2022-09-19 05:15 | Electrocardiogram Report ---
Test Reason : Blood Pressure : / mmHG Vent. Rate : 114 BPM Atrial Rate : 120 BPM P-R Int : 180 ms QRS Dur : 080 ms QT Int : 338 ms P-R-T Axes : 059 038 250 degrees QTc Int : 465 ms Sinus complexes with possible atrial tachycardia Abnormal ECG When compared with ECG of 16-SEP-2022 21:26, Similar findings Confirmed by Yon Keene ([id number]) on 09/19/2022 5:14:38 AM Referred By: REFERRED SELF Confirmed By:Yon Keene
--- NOTE | 2022-09-19 05:38 | Electrocardiogram Report ---
Test Reason : Blood Pressure : / mmHG Vent. Rate : 061 BPM Atrial Rate : 097 BPM P-R Int : 000 ms QRS Dur : 088 ms QT Int : 538 ms P-R-T Axes : 047 041 048 degrees QTc Int : 541 ms Sinus rhythm with Premature atrial complexes in a pattern of bigeminy Septal infarct , age undetermined Prolonged QT Abnormal ECG When compared with ECG of 16-SEP-2022 22:12, Vent. rate has decreased BY 53 BPM Septal infarct is now Present T wave inversion no longer evident in Inferior leads T wave inversion no longer evident in Anterolateral leads Confirmed by Yon Keene ([id number]) on 09/19/2022 5:37:43 AM Referred By: REFERRED SELF Confirmed By:Yon Keene
[2022-09-19 07:41] LABS: Basophils # (auto) 0.06 K/uL (0-0.2); Basophils % (auto) 0.7 %; Eosinophils # (auto) 0.47 K/uL (0-0.50); Eosinophils % (auto) 5.5 %; Hematocrit (blood only) 38.2 % (37.0-47.0); Hemoglobin 12.7 g/dl (12.0-16.0); Immature Granulocytes # (auto) 0.03 K/uL (0.01-0.20); Immature Granulocytes % (auto) 0.4 %; Lymphocytes # (auto) 2.46 K/uL (1.2-3.4); Lymphocytes % (auto) 28.9 %; Mean Corpuscular Hemoglobin 30.5 pg (25.0-34.0); Mean Corpuscular Hgb Conc 33.2 g/dL (32.0-36.0); Mean Corpuscular Volume 91.6 fL (80.0-100.0); Mean Platelet Volume 10.7 fL (9.4-12.4); Monocytes # (auto) 0.52 K/uL (0.11-0.59); Monocytes % (auto) 6.1 %; Neutrophils # (auto) 4.96 K/uL (1.40-6.50); Neutrophils % (auto) 58.4 %; Platelet Count 193 K/uL (130-400); RDW Coefficient of Variation 13.3 % (11.5-14.5); RDW Standard Deviation 45.3 fL (36.4-46.3); Red Blood Count 4.17 M/uL (4.20-5.40)
[2022-09-19] MEDS: DOCUSATE SODIUM/SENNA 50/8.6MG TAB PO SCH (07:50)
[2022-09-19] MEDS: INDAPAMIDE 1.25 MG TAB PO SCH (07:54)
[2022-09-19] MEDS: METOPROLOL TARTRATE 25 MG TAB PO SCH ×2 (07:54→20:49)
[2022-09-19] MEDS: PANTOprazole 40 MG TAB PO SCH ×2 (07:54→20:31)
[2022-09-19] MEDS: ASPIRIN 81 MG ECTAB PO SCH (07:54)
[2022-09-19] MEDS: MULTIVITAMIN TAB PO SCH (07:55)
[2022-09-19] MEDS: GABAPENTIN 600 MG TAB PO SCH ×3 (07:55→20:32)
[2022-09-19] MEDS: MAGNESIUM OXIDE 400 MG TAB PO SCH (07:55)
[2022-09-19] MEDS: CALCITRIOL 0.25 MCG CAPSULE PO SCH (07:55)
[2022-09-19] MEDS: amLODIPine BESYLATE 5 MG TAB PO SCH (07:55)
[2022-09-19] MEDS: DULoxetine HCL 60 MG CAP PO SCH (07:55)
[2022-09-19] MEDS: DORZOLAMIDE/TIMOLOL 22.3/6.8MG/ML 10 ML BTL OPB SCH ×2 (07:59→20:51)
[2022-09-19 08:00] LABS: Calcium 7.8 mg/dl (8.6-10.3); Creatinine Clr Calc Pharmacy 41.1 ml/min; Est GFR (African American) 61.2 ml/min; Est GFR (Non-African American) 52.8 ml/min; Magnesium 1.7 mg/dl (1.7-2.4); Potassium 3.5 mmol/L (3.5-5.1)
--- NOTE | 2022-09-19 10:22 | Cardiology Progress Note ---
Date of Service September 19, 2022 Assessment & Plan (1) Tachy-bob syndrome: (2) Atrial tachycardia, paroxysmal: (3) Wenckebach: (4) HTN (hypertension): Plan IMPRESSION: 81 year old female who initially presented to the ED due to severe rectal pain/constipation- found to have proctitis. Developed tachycardia during soapsuds enema. Questionable episode of PAF- cardiology consulted. Echo with normal LVEF, no wall motion abnormalities. LA/RA normal in size. Telemetry reviewed- patient was primary in sinus rhythm/sinus tach with episodes of MAT/PAT. Patient was asymptomatic. SB on monitor with HR in the 50s, Patient borderline tachybrady- asymptomatic. PLAN: 1. Paroxysmal atrial tachycardia/multifocal atrial tachycardia: We will continue low-dose beta-sav while in hospital and following with metoprolol tartrate 12.5 mg twice daily would not increase dose Supplement potassium to greater than 4 Admission and Anticipated Discharge Date Admission Date: September 16, 2022 Subjective Patient seen and examined, chart, medications, telemetry reviewed GI complaints predominant issue. Rectal discomfort and frequent diarrhea. No cardiac symptoms. Telemetry revealed short runs of atrial tachycardia nonsustained with less frequent episodes since initiating low-dose beta-sav Physical Exam Constitutional: WD/WN, vitals as above no acute distress Eyes: PERRL, conjunctivae normal, anicteric sclerae Neck: normal visual inspection and trachea midline Respiratory: normal respiratory effort, lungs clear to auscultation Cardiovascular: RRR, no murmur, no edema Heart Sounds: normal S1 and normal S2 Vessels: no JVD Extremities: no edema Gastrointestinal (Abdomen): normal bowel sounds, soft, nontender, no hepatosplenomegaly Musculoskeletal: no cyanosis or clubbing, extremities motor strength 5/5 Skin: no rashes, warm and dry Psychiatric: A+Ox3, euthymic affect Results & Data Vital Signs (Past 12 Hours) Vital Signs Temp Pulse Resp BP Pulse Ox O2 Del Method 09/19/22 08:00 36.7 C 56 L 16 136/83 98 Room Air 09/19/22 03:00 36.8 C 52 L 19 162/73 H 94 Room Air 09/18/22 23:00 36.5 C 50 L 20 133/73 93 Room Air Laboratory Results Laboratory Results - last 24 hr 09/19/22 09/19/22 06:43 06:43 WBC 8.50 RBC 4.17 L Hgb 12.7 Hct 38.2 MCV 91.6 MCH 30.5 MCHC 33.2 RDW Std Deviation 45.3 RDW Coeff of Didi 13.3 Plt Count 193 MPV 10.7 Immature Gran % (Auto) 0.4 Neut % (Auto) 58.4 Lymph % (Auto) 28.9 [place] % (Auto) 6.1 Eos % (Auto) 5.5 Baso % (Auto) 0.7 Neut # (Auto) 4.96 Lymph # (Auto) 2.46 [place] # (Auto) 0.52 Eos # (Auto) 0.47 Baso # (Auto) 0.06 Immature Gran # (Auto) 0.03 Sodium 142 Potassium 3.5 Chloride 107 Carbon Dioxide 26 Anion Gap 9 BUN 20 Creatinine 1.00 Est Cr Clr Drug Dosing 41.1 Est GFR ( Amer) 61.2 Est GFR (Non-Af Amer) 52.8 BUN/Creatinine Ratio 20.0 Glucose 117 H Calcium 7.8 L Magnesium 1.7
[2022-09-19] MEDS ORDERED: POTASSIUM CHLORIDE CRTAB 20 MEQ TABCR PO ONE (10:24)
[2022-09-19] MEDS: LOPERAMIDE HCL 2 MG CAP PO PRN ×2 (10:37→20:49)
[2022-09-19] MEDS: DICYCLOMINE HCL 10 MG CAP PO SCH ×2 (13:39→20:31)
[2022-09-19] MEDS: ACETAMINOPHEN 325 MG TAB PO PRN ×2 (13:39→20:59)
[2022-09-19] MEDS ORDERED: DICYCLOMINE HCL 10 MG CAP PO SCH (14:00)
--- NOTE | 2022-09-19 14:13 | Hospitalist Progress Note ---
Date of Service September 19, 2022 Assessment & Plan (1) Tachycardia: Plan: Paroxysmal atrial fibrillation/tachycardia-new onset and resolved Has Wenckebach IV heparin has been discontinued and beta-sav has been discontinued Appreciate cardiology input and recommendation Will need outpatient ZIO monitor To maintain electrolytes Remains stable from cardiac point of view no more bradycardia Has been getting a small dose of beta-sav and heart rate is maintained with that Will not increase the dose of beta-sav given bradycardia and first-degree AV block Remains stable with cardiac condition (2) Acute electrocardiogram changes: Plan: Ischemic EKG No evidence of ACS Noted to have Wenckebach with bradycardia Beta-sav has been stopped Echo of the heart showed sinus bradycardia with first-degree AV block, normal LV size with mild concentric hypertrophy, normal wall motion with normal LV systolic function with EF 60 to 65%, aortic valve leaflets are moderately calcified with moderate aortic regurgitation and there is mild mitral annular calcification (3) Constipation: Plan: Nonspecific abdominal pain and the CT of the abdomen pelvis showed nonspecific colitis/proctitis/gastritis Has had loose bowel movements prior to admission Stool test has been negative She has been on Zosyn-blood cultures have been pending Appreciate GI input and recommendation Has been getting laxatives regularly Will have outpatient colonoscopy She has been having diarrhea and a stools are negative for any significant pathogens Will start Imodium to control diarrhea while in the hospital Remains weak and lethargic and will get PT and OT evaluation and likely discharge tomorrow Ongoing diarrhea Has nonspecific colitis and proctitis Stool examination came back negative for any infection Antibiotic may be causing diarrhea Will try Imodium and Bentyl to decrease abdominal pain When diarrhea is controlled and physical therapy is completed she will be able to be discharged (4) HTN (hypertension): Plan: Blood pressure noted to be very high on admission at 182/100 Remains on the lower side as of this morning (5) H/O parathyroidectomy: (6) Neuropathy: Plan: Please refer to Dr. Torres's addendum for assessment and plan. Has been on gabapentin-we will restart the home dose of gabapentin History of depression She has been depressed and occasionally crying Antidepressant has been restarted Plan DVT prophylaxis Subcu heparin CODE STATUS Full Admission and Anticipated Discharge Date Admission Date: September 16, 2022 Subjective 09/17/2022 The patient was seen and examined in telemetry unit She has been feeling much better today and denies any significant abdominal pain, nausea, vomiting or diarrhea Denies any palpitation, chest pain and/or shortness of breath 09/18/2022 The patient was seen and examined in telemetry unit She remains generally weak and lethargic and still having diarrhea Denies any abdominal pain, nausea and or vomiting No tachycardia, no chest pain and her palpitation Denies any significant pain 09/19/2022 The patient was seen and examined in telemetry unit She has been complaining of minimal abdominal pain and is still having frequent diarrhea Does not have any cardiac symptoms Has not had physical therapy yet Review of Systems Review of Systems: All systems reviewed and are unremarkable except as noted below Physical Exam Physical Exam: Lying in bed without any acute distress Constitutional: well developed, well nourished, + ill appearing and + obese Eyes: PERRL, conjunctivae normal, anicteric sclerae ENMT: external ear and nose normal, oropharynx normal Neck: trachea midline, no thyromegaly Respiratory: no respiratory distress Auscultation: lungs clear to auscultation bilaterally Cardiovascular: Rate/Rhythm: regular rate and regular rhythm; not tachycardic Heart Sounds: normal S1 and normal S2; no murmur Extremities: no edema Gastrointestinal (Abdomen): Inspection/Auscultation: normal bowel sounds; abdomen not distended Percussion/Palpation: abdomen soft; abdomen nontender Musculoskeletal: No acute arthritis involving any of the joint Neurologic: normal touch/pain/proprioception and moves all extremities; no focal motor deficits Psychiatric: A+Ox3, euthymic affect Lymphatic: no cervical or axillary lymphadenopathy Results & Data Results & Data Vital Signs (Past 12 Hours) Vital Signs Temp Pulse Pulse Resp BP Pulse Ox O2 Del Method 09/19/22 12:06 36.8 C 66 60 18 145/69 H 97 Room Air 09/19/22 08:00 36.7 C 56 L 16 136/83 98 Room Air 09/19/22 03:00 36.8 C 52 L 19 162/73 H 94 Room Air Laboratory Results Short CBC 09/19/22 Range/Units 06:43 WBC 8.50 (4.8-10.8) K/ul Hgb 12.7 (12.0-16.0) g/dl Hct 38.2 (37.0-47.0) % Plt Count 193 (130-400) K/uL BMP 09/19/22 06:43 Sodium 142 Potassium 3.5 Chloride 107 Carbon Dioxide 26 BUN 20 Creatinine 1.00 Glucose 117 H Calcium 7.8 L Medications Administered Current Inpatient Medications Acetaminophen (Acetaminophen 325 Mg Tab) 650 mg PO Q4H PRN PRN Reason: Pain or Fever Stop: 10/17/22 00:36 Last Admin: 09/19/22 13:39 Dose: 650 mg Al Hydrox/Mg Hydrox/Simethicone (Aluminum/Magnesium/Simeth (Maalox Max) 30 Ml Udc) 30 ml PO Q6H PRN PRN Reason: Heartburn Stop: 10/18/22 20:38 Last Admin: 09/18/22 21:18 Dose: 30 ml Amlodipine Besylate (Amlodipine Besylate 5 Mg Tab) 2.5 mg PO DAILY [facility] Stop: 10/17/22 08:59 Last Admin: 09/19/22 07:55 Dose: 2.5 mg Aspirin (Aspirin 81 Mg Ectab) 81 mg PO QAM [facility] Stop: 10/17/22 08:59 Last Admin: 09/19/22 07:54 Dose: 81 mg Calcitriol (Calcitriol 0.25 Mcg Capsule) 1 mcg PO QAM [facility] Stop: 10/19/22 08:59 Last Admin: 09/19/22 07:55 Dose: 1 mcg Dicyclomine HCl (Dicyclomine Hcl 10 Mg Cap) 20 mg PO TID [facility] Stop: 10/19/22 13:59 Last Admin: 09/19/22 13:39 Dose: 20 mg Dorzolamide/Timolol (Dorzolamide/Timolol 22.3/6.8mg/Ml 10 Ml Btl) 1 drops OPB BID [facility] Stop: 10/17/22 08:59 Last Admin: 09/19/22 07:59 Dose: 1 drops Duloxetine HCl (Duloxetine Hcl 60 Mg Cap) 60 mg PO DAILY [facility] Stop: 10/18/22 11:59 Last Admin: 09/19/22 07:55 Dose: 60 mg Fluticasone Propionate (Fluticasone Propionate Na Spr 16 Gm Btl) 1 sprays NA HS [facility] Stop: 10/18/22 20:59 Last Admin: 09/18/22 20:12 Dose: 1 sprays Gabapentin (Gabapentin 600 Mg Tab) 600 mg PO TID [facility] Stop: 10/18/22 13:59 Last Admin: 09/19/22 13:39 Dose: 600 mg Promethazine HCl 6.25 mg/ (Sodium Chloride) 50.25 mls @ 201 mls/hr IV Q6H PRN PRN Reason: Nausea And Vomiting Stop: 10/17/22 00:36 Piperacillin Sod/Tazobactam (Sod 4.5 gm/ Dextrose) 120 mls @ 30 mls/hr IV Q8H [facility]; Protocol Stop: 09/27/22 03:59 Last Admin: 09/19/22 12:01 Dose: 30 mls/hr Indapamide (Indapamide 1.25 Mg Tab) 2.5 mg PO DAILY [facility] Stop: 10/19/22 08:59 Last Admin: 09/19/22 07:54 Dose: 2.5 mg Latanoprost (Latanoprost 0.005% Op Soln 2.5 Ml Btl) 1 drops OP [facility] Stop: 10/17/22 20:59 Last Admin: 09/18/22 20:12 Dose: 1 drops Loperamide HCl (Loperamide Hcl 2 Mg Cap) 2 mg PO Q3H PRN PRN Reason: Diarrhea Stop: 10/18/22 11:31 Last Admin: 09/19/22 10:37 Dose: 2 mg Magnesium Oxide (Magnesium Oxide 400 Mg Tab) 400 mg PO [facility] Stop: 10/19/22 08:59 Last Admin: 09/19/22 07:55 Dose: 400 mg Metoprolol Tartrate (Metoprolol Tartrate 25 Mg Tab) 12.5 mg PO BID [facility] Stop: 10/18/22 20:59 Last Admin: 09/19/22 07:54 Dose: 12.5 mg Multivitamins (Multivitamin Tab) 1 tab PO QAM [facility] Stop: 10/17/22 08:59 Last Admin: 09/19/22 07:55 Dose: 1 tab Pantoprazole Sodium (Pantoprazole 40 Mg Tab) 40 mg PO BID [facility]; Protocol Stop: 10/17/22 08:59 Last Admin: 09/19/22 07:54 Dose: 40 mg Polyethylene Glycol (Polyethylene (Miralax) 17 Gm Pack) 17 gm PO DAILY PRN PRN Reason: Constipation Stop: 10/17/22 00:36 Rosuvastatin Calcium (Rosuvastatin Calcium 10 Mg Tab) 10 mg PO [facility] Stop: 10/17/22 20:59 Last Admin: 09/18/22 20:08 Dose: 10 mg Senna/Docusate Sodium (Docusate Sodium/Senna 50/8.6mg Tab) 1 tab PO QAM [facility] Stop: 10/17/22 08:59 Last Admin: 09/19/22 07:50 Dose: Not Given Tizanidine HCl (Tizanidine Hcl 4 Mg Tablet) 2 mg PO TID PRN PRN Reason: Muscle Spasm Stop: 10/18/22 11:22 Tramadol HCl (Tramadol Hcl 50 Mg Tablet) 25 mg PO Q4H PRN PRN Reason: Pain Stop: 10/17/22 00:36
[2022-09-19] MEDS: ROSUVASTATIN CALCIUM 10 MG TAB PO SCH (20:32)
[2022-09-19] MEDS ORDERED: SIMETHICONE 80 MG CHEW PO PRN (20:35)
[2022-09-19] MEDS: FLUTICASONE PROPIONATE NA SPR 16 GM BTL SCH (20:51)
[2022-09-19] MEDS: LATANOPROST 0.005% OP SOLN 2.5 ML BTL OP SCH (20:51)
[2022-09-20] MEDS: PIPERACILLIN/TAZOBACTAM 4.5 GM in DEXTROSE 5% 100 ML IV SCH (05:06)
[2022-09-20 07:42] LABS: BUN Creatinine Ratio 20.7 (10-20); Calcium 8.4 mg/dl (8.6-10.3); Creatinine Clr Calc Pharmacy 46.4 ml/min; Est GFR (African American) 72.4 ml/min; Est GFR (Non-African American) 62.5 ml/min; Magnesium 1.7 mg/dl (1.7-2.4); Potassium 3.9 mmol/L (3.5-5.1)
[2022-09-20] MEDS: GABAPENTIN 600 MG TAB PO SCH ×2 (08:21→13:17)
[2022-09-20] MEDS: amLODIPine BESYLATE 5 MG TAB PO SCH (08:21)
[2022-09-20] MEDS: DICYCLOMINE HCL 10 MG CAP PO SCH ×2 (08:21→13:18)
[2022-09-20] MEDS: INDAPAMIDE 1.25 MG TAB PO SCH (08:21)
[2022-09-20] MEDS: ASPIRIN 81 MG ECTAB PO SCH (08:21)
[2022-09-20] MEDS: CALCITRIOL 0.25 MCG CAPSULE PO SCH (08:21)
[2022-09-20] MEDS: DULoxetine HCL 60 MG CAP PO SCH (08:21)
[2022-09-20] MEDS: PANTOprazole 40 MG TAB PO SCH (08:22)
[2022-09-20] MEDS: MAGNESIUM OXIDE 400 MG TAB PO SCH (08:22)
[2022-09-20] MEDS: MULTIVITAMIN TAB PO SCH (08:22)
[2022-09-20] MEDS: METOPROLOL TARTRATE 25 MG TAB PO SCH (08:22)
[2022-09-20] MEDS: DOCUSATE SODIUM/SENNA 50/8.6MG TAB PO SCH (08:23)
[2022-09-20] MEDS: DORZOLAMIDE/TIMOLOL 22.3/6.8MG/ML 10 ML BTL OPB SCH (08:23)
[2022-09-20] MEDS: ACETAMINOPHEN 325 MG TAB PO PRN (09:49)
--- NOTE | 2022-09-20 11:48 | Cardiology Progress Note ---
Date of Service September 20, 2022 Assessment & Plan (1) Atrial tachycardia, paroxysmal: (2) Wenckebach: (3) HTN (hypertension): Plan IMPRESSION: 81 year old female who initially presented to the ED due to severe rectal pain/constipation- found to have proctitis. Developed tachycardia during soapsuds enema. Questionable episode of PAF- cardiology consulted. Echo with normal LVEF, no wall motion abnormalities. LA/RA normal in size. Telemetry reviewed- patient was primary in sinus rhythm/sinus tach with episodes of MAT/PAT. Patient was asymptomatic. SB on monitor with HR in the 50s, Patient borderline tachybrady- asymptomatic. PLAN: 1. Paroxysmal atrial tachycardia/multifocal atrial tachycardia: Rhythm stable. We will continue metoprolol tartrate 12.5 mg twice per day Potassium chloride 10 mg/day on discharge Follow-up cardiology 4 to 6-week Admission and Anticipated Discharge Date Admission Date: September 16, 2022 Subjective Patient seen and examined in telemetry reviewed. 8 arrhythmia substantially improved no profound bradycardia arrhythmias or pauses GI complaints improved Results & Data Vital Signs (Past 12 Hours) Vital Signs Temp Pulse Pulse Pulse Resp BP Pulse Ox 09/20/22 11:14 36.8 C 56 L 18 153/75 H 94 09/20/22 07:51 53 L 09/20/22 07:18 36.6 C 57 L 19 194/69 H 94 09/20/22 05:17 177/68 H 09/20/22 03:56 186/72 H 09/20/22 03:21 36.5 C 56 L 17 192/64 H 93 O2 Del Method 09/20/22 11:14 Room Air 09/20/22 07:51 09/20/22 07:18 Room Air 09/20/22 05:17 09/20/22 03:56 09/20/22 03:21 Room Air Laboratory Results Laboratory Results - last 24 hr 09/20/22 06:02 Sodium 142 Potassium 3.9 Chloride 105 Carbon Dioxide 28 Anion Gap 9 BUN 18 Creatinine 0.87 Est Cr Clr Drug Dosing 46.4 Est GFR ( Amer) 72.4 Est GFR (Non-Af Amer) 62.5 BUN/Creatinine Ratio 20.7 H Glucose 108 H Calcium 8.4 L Magnesium 1.7
[2022-09-20] MEDS ORDERED: POTASSIUM CHLORIDE 10 MEQ TABCR PO SCH (12:00)
--- NOTE | 2022-09-20 12:31 | Hospitalist Progress Note ---
Date of Service September 20, 2022 Assessment & Plan (1) Tachycardia: Plan: Paroxysmal atrial fibrillation/tachycardia-new onset and resolved Has Wenckebach IV heparin has been discontinued and beta-sav has been discontinued Appreciate cardiology input and recommendation Will need outpatient ZIO monitor To maintain electrolytes Remains stable from cardiac point of view no more bradycardia Has been getting a small dose of beta-sav and heart rate is maintained with that Will not increase the dose of beta-sav given bradycardia and first-degree AV block Remains stable with cardiac condition Heart rate is controlled and will continue with the small dose of beta-sav as advised (2) Acute electrocardiogram changes: Plan: Ischemic EKG No evidence of ACS Noted to have Wenckebach with bradycardia Beta-sav has been stopped Echo of the heart showed sinus bradycardia with first-degree AV block, normal LV size with mild concentric hypertrophy, normal wall motion with normal LV syst olic function with EF 60 to 65%, aortic valve leaflets are moderately calcified with moderate aortic regurgitation and there is mild mitral annular calcification (3) Constipation: Plan: Nonspecific abdominal pain and the CT of the abdomen pelvis showed nonspecific colitis/proctitis/gastritis Has had loose bowel movements prior to admission Stool test has been negative She has been on Zosyn-blood cultures have been negative Appreciate GI input and recommendation Has been getting laxatives regularly Will have outpatient colonoscopy She has been having diarrhea and a stools are negative for any significant pathogens Will start Imodium to control diarrhea while in the hospital Will give Augmentin to finish the course of antibiotic as an outpatient Abdominal pain and diarrhea is controlled Ongoing diarrhea Has nonspecific colitis and proctitis Stool examination came back negative for any infection Antibiotic may be causing diarrhea Will try Imodium and Bentyl to decrease abdominal pain When diarrhea is controlled and physical therapy is completed she will be able to be discharged Diarrhea is controlled without any significant abdominal pain (4) HTN (hypertension): Plan: Blood pressure noted to be very high on admission at 182/100 Remains on the lower side as of this morning (5) H/O parathyroidectomy: (6) Neuropathy: Plan: Please refer to Dr. Torres's addendum for assessment and plan. Has been on gabapentin-we will restart the home dose of gabapentin History of depression She has been depressed and occasionally crying Antidepressant has been restarted Plan DVT prophylaxis Subcu heparin CODE STATUS Full Admission and Anticipated Discharge Date Admission Date: September 16, 2022 Subjective 09/17/2022 The patient was seen and examined in telemetry unit She has been feeling much better today and denies any significant abdominal pain, nausea, vomiting or diarrhea Denies any palpitation, chest pain and/or shortness of breath 09/18/2022 The patient was seen and examined in telemetry unit She remains generally weak and lethargic and still having diarrhea Denies any abdominal pain, nausea and or vomiting No tachycardia, no chest pain and her palpitation Denies any significant pain 09/19/2022 The patient was seen and examined in telemetry unit She has been complaining of minimal abdominal pain and is still having frequent diarrhea Does not have any cardiac symptoms Has not had physical therapy yet 09/30/2022 The patient was seen and examined in telemetry unit She has been feeling much better and the diarrhea is controlled Abdominal pain is controlled too She does not have any more tachycardia and or extreme bradycardia Discharge home this afternoon Review of Systems Review of Systems: All systems reviewed and are unremarkable except as noted below Physical Exam Physical Exam: Lying in bed without any acute distress Constitutional: well developed, well nourished, + ill appearing and + obese Eyes: PERRL, conjunctivae normal, anicteric sclerae ENMT: external ear and nose normal, oropharynx normal Neck: trachea midline, no thyromegaly Respiratory: no respiratory distress Auscultation: lungs clear to auscultation bilaterally Cardiovascular: Rate/Rhythm: regular rate and regular rhythm; not tachycardic Heart Sounds: normal S1 and normal S2; no murmur Extremities: no edema Gastrointestinal (Abdomen): Inspection/Auscultation: normal bowel sounds; abdomen not distended Percussion/Palpation: abdomen soft; abdomen nontender Musculoskeletal: No acute arthritis involving any joint Neurologic: normal touch/pain/proprioception and moves all extremities; no focal motor deficits Psychiatric: A+Ox3, euthymic affect Lymphatic: no cervical or axillary lymphadenopathy Results & Data Results & Data Vital Signs (Past 12 Hours) Vital Signs Temp Pulse Pulse Pulse Resp BP Pulse Ox 09/20/22 11:14 36.8 C 56 L 18 153/75 H 94 09/20/22 07:51 53 L 09/20/22 07:18 36.6 C 57 L 19 194/69 H 94 09/20/22 05:17 177/68 H 09/20/22 03:56 186/72 H 09/20/22 03:21 36.5 C 56 L 17 192/64 H 93 O2 Del Method 09/20/22 11:14 Room Air 09/20/22 07:51 09/20/22 07:18 Room Air 09/20/22 05:17 09/20/22 03:56 09/20/22 03:21 Room Air Laboratory Results [facility] 09/20/22 06:02 Sodium 142 Potassium 3.9 Chloride 105 Carbon Dioxide 28 BUN 18 Creatinine 0.87 Glucose 108 H Calcium 8.4 L Medications Administered Current Inpatient Medications Acetaminophen (Acetaminophen 325 Mg Tab) 650 mg PO Q4H PRN PRN Reason: Pain or Fever Stop: 10/17/22 00:36 Last Admin: 09/20/22 09:49 Dose: 650 mg Al Hydrox/Mg Hydrox/Simethicone (Aluminum/Magnesium/Simeth (Maalox Max) 30 Ml Udc) 30 ml PO Q6H PRN PRN Reason: Heartburn Stop: 10/18/22 20:38 Last Admin: 09/18/22 21:18 Dose: 30 ml Amlodipine Besylate (Amlodipine Besylate 5 Mg Tab) 2.5 mg PO DAILY [facility] Stop: 10/17/22 08:59 Last Admin: 09/20/22 08:21 Dose: 2.5 mg Aspirin (Aspirin 81 Mg Ectab) 81 mg PO QAM [facility] Stop: 10/17/22 08:59 Last Admin: 09/20/22 08:21 Dose: 81 mg Calcitriol (Calcitriol 0.25 Mcg Capsule) 1 mcg PO QAM [facility] Stop: 10/19/22 08:59 Last Admin: 09/20/22 08:21 Dose: 1 mcg Dicyclomine HCl (Dicyclomine Hcl 10 Mg Cap) 20 mg PO TID [facility] Stop: 10/19/22 13:59 Last Admin: 09/20/22 08:21 Dose: 20 mg Dorzolamide/Timolol (Dorzolamide/Timolol 22.3/6.8mg/Ml 10 Ml Btl) 1 drops OPB BID [facility] Stop: 10/17/22 08:59 Last Admin: 09/20/22 08:23 Dose: 1 drops Duloxetine HCl (Duloxetine Hcl 60 Mg Cap) 60 mg PO DAILY [facility] Stop: 10/18/22 11:59 Last Admin: 09/20/22 08:21 Dose: 60 mg Fluticasone Propionate (Fluticasone Propionate Na Spr 16 Gm Btl) 1 sprays NA HS [facility] Stop: 10/18/22 20:59 Last Admin: 09/19/22 20:51 Dose: 1 sprays Gabapentin (Gabapentin 600 Mg Tab) 600 mg PO TID [facility] Stop: 10/18/22 13:59 Last Admin: 09/20/22 08:21 Dose: 600 mg Promethazine HCl 6.25 mg/ (Sodium Chloride) 50.25 mls @ 201 mls/hr IV Q6H PRN PRN Reason: Nausea And Vomiting Stop: 10/17/22 00:36 Piperacillin Sod/Tazobactam (Sod 4.5 gm/ Dextrose) 120 mls @ 30 mls/hr IV Q8H [facility]; Protocol Stop: 09/27/22 03:59 Last Infusion: 09/20/22 09:47 Dose: Infused Indapamide (Indapamide 1.25 Mg Tab) 2.5 mg PO DAILY [facility] Stop: 10/19/22 08:59 Last Admin: 09/20/22 08:21 Dose: 2.5 mg Latanoprost (Latanoprost 0.005% Op Soln 2.5 Ml Btl) 1 drops OP HS [facility] Stop: 10/17/22 20:59 Last Admin: 09/19/22 20:51 Dose: 1 drops Loperamide HCl (Loperamide Hcl 2 Mg Cap) 2 mg PO Q3H PRN PRN Reason: Diarrhea Stop: 10/18/22 11:31 Last Admin: 09/19/22 20:49 Dose: 2 mg Magnesium Oxide (Magnesium Oxide 400 Mg Tab) 400 mg PO QAM [facility] Stop: 10/19/22 08:59 Last Admin: 09/20/22 08:22 Dose: 400 mg Metoprolol Tartrate (Metoprolol Tartrate 25 Mg Tab) 12.5 mg PO BID [facility] Stop: 10/18/22 20:59 Last Admin: 09/20/22 08:22 Dose: 12.5 mg Multivitamins (Multivitamin Tab) 1 tab PO QAM [facility] Stop: 10/17/22 08:59 Last Admin: 09/20/22 08:22 Dose: 1 tab Pantoprazole Sodium (Pantoprazole 40 Mg Tab) 40 mg PO BID [facility]; Protocol Stop: 10/17/22 08:59 Last Admin: 09/20/22 08:22 Dose: 40 mg Polyethylene Glycol (Polyethylene (Miralax) 17 Gm Pack) 17 gm PO DAILY PRN PRN Reason: Constipation Stop: 10/17/22 00:36 Potassium Chloride (Potassium Chloride 10 Meq Tabcr) 10 meq PO DAILY [facility] Stop: 10/20/22 11:59 Rosuvastatin Calcium (Rosuvastatin Calcium 10 Mg Tab) 10 mg PO HS [facility] Stop: 10/17/22 20:59 Last Admin: 09/19/22 20:32 Dose: 10 mg Senna/Docusate Sodium (Docusate Sodium/Senna 50/8.6mg Tab) 1 tab PO QAM [facility] Stop: 10/17/22 08:59 Last Admin: 09/20/22 08:23 Dose: Not Given Simethicone (Simethicone 80 Mg Chew) 80 mg PO Q6H PRN PRN Reason: Flatulence Stop: 10/19/22 20:34 Last Admin: 09/19/22 20:47 Dose: 80 mg Tizanidine HCl (Tizanidine Hcl 4 Mg Tablet) 2 mg PO TID PRN PRN Reason: Muscle Spasm Stop: 10/18/22 11:22 Tramadol HCl (Tramadol Hcl 50 Mg Tablet) 25 mg PO Q4H PRN PRN Reason: Pain Stop: 10/17/22 00:36
[2022-09-20] MEDS ORDERED: AMOXICILLIN/CLAVULANATE 875 MG TAB PO ONE (13:00)
[2022-09-20] MEDS ORDERED: AMOXICILLIN/CLAVULANATE 875 MG TAB PO SCH (17:00)
--- NOTE | 2022-09-20 21:46 | Electrocardiogram Report ---
Test Reason : Blood Pressure : / mmHG Vent. Rate : 106 BPM Atrial Rate : 106 BPM P-R Int : 130 ms QRS Dur : 080 ms QT Int : 404 ms P-R-T Axes : 064 018 127 degrees QTc Int : 534 ms Sinus tachycardia vs atrial tachycardia Nonspecific ST and T wave abnormality Prolonged QT Abnormal ECG When compared with ECG of 17-SEP-2022 09:14, Vent. rate has increased BY 45 BPM Criteria for Septal infarct are no longer Present Confirmed by Yon Keene ([id number]) on 09/20/2022 9:45:55 PM Referred By: REFERRED SELF Confirmed By:Yon Keene
--- NOTE | 2022-09-22 12:19 | Discharge Summary ---
Date of Service September 20, 2022 Admission HPI Per Admitting Provider 81-year-old female with PMH dyslipidemia, history of parathyroidectomy, PAD, HTN, GERD, CKD stage III, history of migraines, peripheral neuropathy, and other problems listed below who presents to the ED for evaluation of constipation. History obtained from the patient and review of outpatient PCP records. Patient recently admitted to [facility] 09/04 through 09/06 for hypoxia secondary to bronchitis. Patient reports she had been doing well until today. States that she developed rectal pain and inability to have a bowel movement. Patient states she typically has a bowel movement every other day. Last bowel movement was about 4 days ago. Patient states that she sat on the toilet for several hours today. She attempted to manually disimpact herself. She reports associated nausea however no vomiting. She denies chest pain, palpitations, shortness of breath. No lightheadedness, dizziness, diaphoresis, syncopal events. Denies fevers and chills. No urinary symptoms. Patient received a soapsuds enema in the ED and had a large bowel movement. Subsequently patient developed tachycardia and hypertension. EKG showed T wave inversions in the inferior and anterolateral leads. Admission Exam Per Admitting Provider Constitutional: WD/WN, vitals as above no acute distress Eyes: PERRL, conjunctivae normal, anicteric sclerae ENMT: external ear and nose normal, oropharynx normal Respiratory: normal respiratory effort, lungs clear to auscultation Cardiovascular: Rate/Rhythm: + tachycardic and + irregularly irregular Vessels: normal peripheral pulses Extremities: + edema (Trace edema BLE) Gastrointestinal (Abdomen): normal bowel sounds, soft, nontender, no hepatosplenomegaly Musculoskeletal: no cyanosis or clubbing, extremities motor strength 5/5 Skin: no rashes, warm and dry Neurologic: PERRL, EOMI, accommodation nl, no face palsy, no dysarthria Psychiatric: A+Ox3, euthymic affect Principal Diagnosis Paroxysmal atrial tachycardia, nonspecific colitis Discharge Exam Lying in bed without any acute distress Constitutional well developed, well nourished, + ill appearing and + obese Eyes PERRL, conjunctivae normal, anicteric sclerae ENMT external ear and nose normal, oropharynx normal Neck trachea midline, no thyromegaly Respiratory no respiratory distress Auscultation: lungs clear to auscultation bilaterally Cardiovascular Rate/Rhythm: regular rate and regular rhythm; not tachycardic Heart Sounds: normal S1 and normal S2; no murmur Extremities: no edema Gastrointestinal (Abdomen) Inspection/Auscultation: normal bowel sounds; abdomen not distended Percussion/Palpation: abdomen soft; abdomen nontender Neurologic normal touch/pain/proprioception and moves all extremities; no focal motor deficits Psychiatric A+Ox3, euthymic affect Lymphatic no cervical or axillary lymphadenopathy Discharge Data Allergies Allergy/AdvReac Type Severity Reaction Status Date / Time No Known Allergies Allergy Verified 09/16/22 18:28 Consultations 09/16/22 21:19 ED Decision to Admit Stat 09/17/22 00:37 Consult Cardiology Routine 09/17/22 08:38 Consult Gastroenterology Routine Ordered Studies 09/16/22 19:53 CT abd pelvis IV con only Stat Hospital Course (1) Tachycardia: Paroxysmal atrial fibrillation/tachycardia-new onset and resolved Has Wenckebach IV heparin has been discontinued and beta-sav has been discontinued Appreciate cardiology input and recommendation Will need outpatient ZIO monitor To maintain electrolytes Remains stable from cardiac point of view no more bradycardia Has been getting a small dose of beta-sav and heart rate is maintained with that Will not increase the dose of beta-sav given bradycardia and first-degree AV block Remains stable with cardiac condition Heart rate is controlled and will continue with the small dose of beta-sav as advised (2) Acute electrocardiogram changes: Ischemic EKG No evidence of ACS Noted to have Wenckebach with bradycardia Beta-sav has been stopped Echo of the heart showed sinus bradycardia with first-degree AV block, normal LV size with mild concentric hypertrophy, normal wall motion with normal LV systolic function with EF 60 to 65%, aortic valve leaflets are moderately calcified with moderate aortic regurgitation and there is mild mitral annular calcification (3) Constipation: Nonspecific abdominal pain and the CT of the abdomen pelvis showed nonspecific colitis/proctitis/gastritis Has had loose bowel movements prior to admission Stool test has been negative She has been on Zosyn-blood cultures have been negative Appreciate GI input and recommendation Has been getting laxatives regularly Will have outpatient colonoscopy She has been having diarrhea and a stools are negative for any significant pathogens Will start Imodium to control diarrhea while in the hospital Will give Augmentin to finish the course of antibiotic as an outpatient Abdominal pain and diarrhea is controlled Ongoing diarrhea Has nonspecific colitis and proctitis Stool examination came back negative for any infection Antibiotic may be causing diarrhea Will try Imodium and Bentyl to decrease abdominal pain When diarrhea is controlled and physical therapy is completed she will be able to be discharged Diarrhea is controlled without any significant abdominal pain (4) HTN (hypertension): Blood pressure noted to be very high on admission at 182/100 Remains on the lower side as of this morning (5) H/O parathyroidectomy: (6) Neuropathy: Please refer to Dr. Torres's addendum for assessment and plan. Has been on gabapentin-we will restart the home dose of gabapentin History of depression She has been depressed and occasionally crying Antidepressant has been restarted Plan DVT prophylaxis Subcu heparin CODE STATUS Full Total Time Total Time Spent Total Time Spent (In Minutes): 35 minutes Discharge Plan Discharge Items Patient Disposition: Home - Self-Care Reason For Visit: PAF, SEPSIS Discharge Diagnosis: Paroxysmal atrial tachycardia, nonspecific colitis Condition on Discharge: Fair Activity: Resume your previous activity Non-emergency contact: Primary Care Provider Call non-emergency contact if: you have any medication questions and your symptoms worsen Follow-up/Referrals: Hernan Fernández MD [Primary Care Provider] - (Date & Time 09/25/2022 11:00 AM Provider Hernan Fernández III, MD Department [facility] ) Diet: Heart Healthy Addtl Attending Provider Instructions: Please take precautions to avoid falls Please finish the course of antibiotic Try [id number] Imodium to control diarrhea Take your heart medications as advised Please keep appointment with your healthcare providers Pending Studies at Discharge: No Stand-Alone Forms: [facility] Medications and DC Order Prescriptions: New amoxicillin-pot clavulanate 875-125 mg Tablet 1 tab PO BIDM 5 Days Qty: 10 0RF potassium chloride 10 mEq Tablet,Er Particles/Crystals 10 meq PO DAILY 30 Days Qty: 30 0RF metoprolol tartrate 25 mg Tablet 12.5 mg PO BID 30 Days Qty: 30 0RF Continued latanoprost [Xalatan] 0.005 % drops 1 drp ophthalmic (eye) HS indapamide 2.5 mg tablet 2.5 mg PO DAILY calcitriol [Rocaltrol] 0.5 mcg capsule 1 mcg PO QAM Rx Instructions: 2 TABS dorzolamide-timolol [Cosopt] 22.3-6.8 mg/mL drops 1 drp OPB BID duloxetine [Cymbalta] 60 mg capsule,delayed release(DR/EC) 60 mg PO DAILY gabapentin 300 mg Capsule 600 mg PO QID multivitamin Tablet 1 tab PO QAM magnesium oxide 250 mg magnesium Tablet 400 mg PO QAM omeprazole 20 mg Tablet,Delayed Release (Dr/Ec) 20 mg PO BID aspirin [Ed Low Dose Aspirin] 81 mg tablet,delayed release (DR/EC) 81 mg PO QAM amlodipine 2.5 mg tablet 2.5 mg PO DAILY rosuvastatin 10 mg tablet 10 mg PO HS [id number] [Fioricet] 50-300-40 mg capsule 1 cap PO Q8H PRN (Reason: headache) Qty: 20 0RF fluticasone propionate [Flonase Allergy Relief] 50 mcg/actuation spray,suspension 1 spray intranasal HS Rx Instructions: administer into each nostril tizanidine 2 mg Tablet 2 mg PO TID PRN (Reason: Muscle Spasm) Discharge Orders: Discharge Order (Routine); Ordered 09/20/22 Ordered By: Jayson Shah Admission Data Admit Date/Time: 09/16/22 22:49 Attending Provider: Jayson Shah Admit Provider: Brian Torres Primary Care Provider: Hernan Fernández Other Providers: Brian Torres ; Megan Villarreal ; Randy Hayes Sheldon D ; De Berger ; Grover Renae ; Chun Mullins ; Lupis Fan ; Deloris Cutler ; Megan Khan ; Manpreet Scott ; Fahad Ho ; Chirag Kc ; Juan Luis Martinez ; Brandi Montes ; Socorro Rome ; Nancy Olsen ; Raquel Dhillon ; Osei Reid ; Jonathan Villar ; Minerva Fraga ; Adrien Caputo ; London Jaimes ; Francy Dawson ; Fatmata Delgado ; Andreina Can ; Kalyn Gunn ; Sheree Hernandez ; Jarad Salinas ; Kaz Crooks ; Megan Tucker ; Jerry Wick Jr Other Interventions: Discharge Summary Assessment (RN) Last Done: 09/20/22 13:34
== END 2022-09-20 14:00 | disposition home or self-care (01) | DRG 310 ==
LOC: ED 17:37 → 2S 22:49 → INTOOBSV 22:49 → 2S 09-17 04:05

== ENCOUNTER 2023-09-25 02:45 | Inpatient (IN) ==
--- NOTE | 2023-09-25 02:59 | Emergency Department Note ---
Impression & Plan Abdominal pain, LLQ ED Provider Note CHIEF COMPLAINT: Abdominal pain HISTORY OF PRESENTING ILLNESS: This 82-year-old female patient presents to the emergency department with her son for evaluation of left lower quadrant abdominal pain for the past 4 to 5 hours. Denies fevers. Has nausea, but no vomiting. Denies any urinary symptoms. Denies any constipation, diarrhea, or changes in her BMs. No history of SBO. She does have a history of diverticulitis, but this does not feel the same. No history of kidney stones. Denies chest pain. Always has SOB per patient with no recent changes. She rates her discomfort as 9/10. She had not taken anything for the symptoms yet. She is not on any blood thinners. REVIEW OF SYSTEMS: See HPI for pertinent positives and pertinent negatives. ALLERGIES: NKDA MEDICATIONS: See below PAST MEDICAL HISTORY: See below PHYSICAL EXAM: VITALS: Vitals are noted on the nurse's note and reviewed by myself. GENERAL: Non toxic, no acute distress, non-diaphoretic. SKIN: Capillary refill <2 sec. EYES: PERRLA. EOMI. Conjunctivae without injection, sclerae without icterus. NOSE: Patent without discharge. MOUTH: Mucous membranes moist. Uvula midline. Airway patent. NECK: Supple without nuchal rigidity. HEART: Regular rate and rhythm without murmurs gallops or rubs. LUNGS: Clear to auscultation bilaterally without wheezes, rales or rhonchi. No retractions or accessory muscle use. ABDOMEN: Positive bowel sounds x 4. Normal tympanic percussion. Soft, mildly tender to palpation in left lower quadrant and left flank. No CVA tenderness. No masses or organomegaly. Sanchez sign negative. No guarding or rebound tenderness. No focal RLQ tenderness. MUSCULOSKELETAL: No gross musculoskeletal defects. NEURO: Patient was alert and oriented. No focal neurological deficits. DIFFERENTIAL DIAGNOSIS: Differential diagnosis includes hepatitis, pancreatitis, cholecystitis, cholelithiasis, appendicitis, kidney stone, pyelonephritis, UTI, gastritis, gastroenteritis, mesenteric adenitis, obstruction, constipation, hernia, abdominal abscess, perforation, diverticulitis, IBD, ischemic colitis, abdominal aortic aneurysm, ovarian cyst, ovarian torsion, acute salpingitis, or others. ED COURSE AND MEDICAL DECISION MAKING: HISTORY FROM INDEPENDENT HISTORIAN: Additional history was obtained from the patient's son. MONITOR: Continuous alarm security or surveillance monitor: Order was placed for continuous alarm security or surveillance monitor. Patient was placed on the alarm security or surveillance monitor and continuous pulse ox. Patient was noted to be in normal sinus rhythm at an initial rate of 66 bpm per my interpretation. MEDICATIONS GIVEN: 500 mL normal saline solution bolus. Zofran 4 mg IV. Tylenol 1000 mg IV. INTERPRETATION OF LABS: I interpreted the labs with full lab results as below in the lab section of this note. CBC without leukocytosis, anemia, or thrombocytopenia. Coags were normal. Glucose 181, creatinine 1.21, and BUN 39, but CMP otherwise unremarkable. High-sensitivity troponin was normal. Lipase was normal. Urinalysis was still pending at the time of shift change. INTERPRETATION OF IMAGING: Chest x-ray as interpreted by myself was negative for acute cardiopulmonary etiology. Radiology report is still pending. CT scan of the abdomen pelvis with IV contrast was still pending at the time of shift change. MDM SUMMARY: I examined the patient. The patient presented to the emergency department with her son for evaluation of left lower quadrant abdominal pain that started 4 to 5 hours ago. She has some mild nausea along with the abdominal pain, but denies any other symptoms at this time. An IV lock was placed and labs were drawn. The patient was given 500 mL normal saline solution bolus, Zofran 4 mg IV, and Tylenol 1000 mg IV which allowed her to sleep and rest while in the emergency department. Laboratory studies as above showed a mildly elevated BUN and creatinine, but otherwise without significant abnormalities. Urinalysis was still pending at the time of shift change. Chest x-ray negative as per my interpretation. I had a meaningful discussion about this patient with Dr. Moreira who agrees with my assessment and the treatment plan. CT scan of the abdomen and pelvis with IV contrast was still pending at the time of shift change. Due to change of shift, the patient's care was transferred to [facility]. Please refer to his dictation for further details. The patient's care was transferred in stable condition. DIAGNOSIS: Left lower quadrant abdominal pain Past Med/Surg History Problem List Abdominal pain, LLQ (Acute) Left flank pain Hydronephrosis Left ureteral calculus UTI (urinary tract infection) Tachy-bob syndrome Wenckebach Atrial tachycardia, paroxysmal Sinus tachycardia Arrhythmia (Acute) Acute electrocardiogram changes Tachycardia (Acute) Constipation (Acute) HTN (hypertension) (Chronic) GERD (gastroesophageal reflux disease) (Chronic) Migraine (Chronic) Dyslipidemia (Chronic) Vitamin D deficiency (Chronic) Osteoporosis (Chronic) Neuropathy (Chronic) H/O parathyroidectomy (Chronic) "09/26/13" Medical History Nephrolithiasis History of hydronephrosis Closed fracture of distal end of right fibula Glaucoma Bilateral tinnitus Chronic pain both feet and legs Neuropathy BOTH FEET AND LEGS Hyperlipidemia H/O parathyroidectomy Surgical History Hx of bilateral cataract extraction Hx of cholecystectomy History of back surgery lower Family History Other Cancer Social History Smoking Status: Former smoker Tobacco Type: Cigarettes Second Hand Exposure: No; Do You Dip or Chew Tobacco: No; Hx Alcohol Use: No Hx Substance Use: No Preferred Language: Divehi Communication Ability: Effective 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 Beliefs That Will Affect Care: None marital status: / Current Living Situation: Family Current Living Situation Comment: lives with daughter and granddaughter How many Children do You have: 2 Feels Safe at Home: Yes Assistive Devices: Glasses, Walker and Wheelchair Allergies Allergies Allergy/AdvReac Type Severity Reaction Status Date / Time No Known Allergies Allergy Verified 09/16/22 18:28 Home Meds Home Medications Medication Instructions Recorded Confirmed gabapentin 300 mg capsule 600 mg PO QID 05/03/18 09/25/23 magnesium oxide 400 mg PO QAM 05/03/18 09/25/23 multivitamin 1 tab PO QAM 05/03/18 09/25/23 omeprazole 20 mg tablet,delayed 20 mg PO BID 05/03/18 09/25/23 release dorzolamide 22.3 mg-timolol 6.8 1 drp OPB BID 06/01/18 09/25/23 mg/mL eye drops (Cosopt) duloxetine 60 mg capsule,delayed 60 mg PO DAILY 06/01/18 09/25/23 release (Cymbalta) indapamide 2.5 mg tablet 2.5 mg PO DAILY 06/01/18 09/25/23 latanoprost 0.005 % eye drops 1 drp ophthalmic (eye) HS 06/01/18 09/25/23 (Xalatan) aspirin 81 mg tablet,delayed 81 mg PO QAM 06/24/20 09/25/23 release (Ed Low Dose Aspirin) amlodipine 2.5 mg tablet 2.5 mg PO DAILY 09/04/22 09/25/23 fluticasone propionate 50 1 spray intranasal HS 09/16/22 09/25/23 mcg/actuation nasal spray,suspension (Flonase Allergy Relief) calcitriol 0.5 mcg capsule 1 mcg PO DAILY 09/25/23 09/25/23 metoprolol tartrate 25 mg tablet 25 mg PO BID 09/25/23 09/25/23 rosuvastatin 10 mg tablet 10 mg PO DAILY 09/25/23 09/25/23 Results & Data (ED) Vital Signs Vital Signs - 24 hr 09/25/23 02:51 09/25/23 03:10 09/25/23 04:25 Temperature 36.5 C Temperature Source Temporal Artery Scan Pulse Rate 75 Pulse Rate [Right Finger] 102 H 78 Pulse Rhythm Pulse Rhythm [Right Finger] Regular Pulse Strength [Right Finger] Normal Respiratory Rate 18 19 17 Respiratory Effort / Characteristics Non-Labored Spontaneous Non-Labored Spontaneous Respiratory Depth Normal Normal Respiratory Pattern Regular Regular Blood Pressure 142/52 H Blood Pressure [Right Arm] 139/74 143/50 H Blood Pressure Mean 82 Blood Pressure Mean [Right Arm] 95 81 Blood Pressure Position [Right Arm] Lying Pulse Oximetry 93 96 91 Oxygen Delivery Method Room Air Room Air Room Air Oxygen Flow Rate Sepsis Recent Fever Within 48 Hours No Sepsis New/Unexplained Change in Mental Status N/A Sepsis Action Taken by Nursing No Action Required 09/25/23 06:00 09/25/23 08:00 09/25/23 09:17 Temperature Temperature Source Pulse Rate 81 Pulse Rate [Right Finger] 75 59 L Pulse Rhythm Regular Pulse Rhythm [Right Finger] Regular Regular Pulse Strength [Right Finger] Normal Normal Respiratory Rate 18 18 18 Respiratory Effort / Characteristics Non-Labored Spontaneous Non-Labored Spontaneous Respiratory Depth Normal Normal Respiratory Pattern Regular Regular Blood Pressure Blood Pressure [Right Arm] 115/65 163/79 H Blood Pressure Mean Blood Pressure Mean [Right Arm] 81 107 Blood Pressure Position [Right Arm] Lying Lying Pulse Oximetry 92 93 97 Oxygen Delivery Method Room Air Room Air Nasal Cannula Oxygen Flow Rate 2 Sepsis Recent Fever Within 48 Hours Sepsis New/Unexplained Change in Mental Status Sepsis Action Taken by Nursing 09/25/23 09:17 Temperature Temperature Source Pulse Rate Pulse Rate [Right Finger] 81 Pulse Rhythm Pulse Rhythm [Right Finger] Regular Pulse Strength [Right Finger] Normal Respiratory Rate 18 Respiratory Effort / Characteristics Non-Labored Spontaneous Respiratory Depth Normal Respiratory Pattern Regular Blood Pressure Blood Pressure [Right Arm] 148/71 H Blood Pressure Mean Blood Pressure Mean [Right Arm] 96 Blood Pressure Position [Right Arm] Lying Pulse Oximetry 97 Oxygen Delivery Method Nasal Cannula Oxygen Flow Rate 2 Sepsis Recent Fever Within 48 Hours Sepsis New/Unexplained Change in Mental Status Sepsis Action Taken by Nursing Laboratory Data 09/25/23 03:07 09/25/23 03:07 Lab Results 09/25/23 09/25/23 Range/Units 03:07 07:34 WBC 10.38 (4.8-10.8) K/ul RBC 4.94 (4.20-5.40) M/uL Hgb 15.2 (12.0-16.0) g/dl Hct 45.9 (37.0-47.0) % MCV 92.9 (80.0-100.0) fL MCH 30.8 (25.0-34.0) pg MCHC 33.1 (32.0-36.0) g/dL RDW Std Deviation 44.9 (36.4-46.3) fL RDW Coeff of Didi 13.2 (11.5-14.5) % Plt Count 225 (130-400) K/uL MPV 10.0 (9.4-12.4) fL Immature Gran % (Auto) 0.3 % Neut % (Auto) 77.0 % Lymph % (Auto) 16.0 % Vance % (Auto) 4.9 % Eos % (Auto) 1.3 % Baso % (Auto) 0.5 % Neut # (Auto) 8.00 H (1.40-6.50) K/uL Lymph # (Auto) 1.66 (1.20-3.40) K/uL Vance # (Auto) 0.51 (0.11-0.59) K/uL Eos # (Auto) 0.13 (0.00-0.50) K/uL Baso # (Auto) 0.05 (0.00-0.20) K/uL Immature Gran # (Auto) 0.03 (0.01-0.20) K/uL PT 11.0 (9.0-12.0) Seconds INR 1.0 (0.9-1.1) APTT 24 (21-31) Seconds PTT Ratio 0.9 Sodium 141 (136-145) mmol/L Potassium 3.5 (3.5-5.1) mmol/L Chloride 98 (98-107) mmol/L Carbon Dioxide 32 (21-32) mmol/L Anion Gap 11 (3-11) BUN 39 H (6-23) mg/dl Creatinine 1.21 H (0.6-1.2) mg/dl Est Cr Clr Drug Dosing Not Reportable Est GFR ( Amer) 48.3 ml/min Est GFR (Non-Af Amer) 41.6 ml/min BUN/Creatinine Ratio 32.2 H (10-20) Glucose 181 H (70-99(Fasting)) mg/dl Calcium 10.3 (8.6-10.3) mg/dl Total Bilirubin 0.5 (0.2-1.0) mg/dl AST 21 (13-39) U/L ALT 14 (7-52) U/L Alkaline Phosphatase 48 (34-104) U/L Troponin I High Sens 5.7 (0-14) pg/ml Total Protein 6.9 (6.0-8.3) gm/dl Albumin 4.0 (3.4-5.0) gm/dl Globulin 2.9 (2.5-4.0) gm/dl Albumin/Globulin Ratio 1.4 (0.9-2) Lipase 26 (11-82) U/L Urine Color Yellow Urine Appearance Cloudy A (Clear) Urine pH 5.0 (4.5-7.5) Ur Specific [place] > 1.045 H (1.000-1.030) Urine Protein 1+ H (Negative) Urine Glucose (UA) Negative (Negative) Urine Ketones Negative (Negative) Urine Blood 3+ H (Negative) Urine Nitrite Positive A (Negative) Urine Bilirubin Negative (Negative) Urine Urobilinogen Negative (Negative) Ur Leukocyte Esterase Trace H (Negative) Urine WBC (Auto) 6-10 H (0-5) /hpf Urine RBC (Auto) >20 H (0-2) /hpf U Hyaline Cast (Auto) 0-2 (0-2) /lpf U Epithel Cells (Auto) >20 H (0-2) /hpf Urine Bacteria (Auto) 3+ H (None Seen) Calcium Oxalate Crystal Present A (None Prsent) Administered Medications Amlodipine Besylate (Amlodipine Besylate 5 Mg Tab) 2.5 mg PO DAILY MARILY Stop: 10/25/23 10:23 Last Admin: 09/25/23 16:24 Dose: Not Given Documented By: CMV Dorzolamide/Timolol (Dorzolamide/Timolol 22.3/6.8mg/Ml 10 Ml Btl) 1 drops OPB BID MARILY Stop: 10/25/23 20:59 Last Admin: 09/25/23 20:40 Dose: 1 drops Documented By: TKB Duloxetine HCl (Duloxetine Hcl 60 Mg Cap) 60 mg PO DAILY MARILY Stop: 10/25/23 10:23 Last Admin: 09/25/23 16:24 Dose: Not Given Documented By: CMV Fluticasone Propionate (Fluticasone Propionate Na Spr 16 Gm Btl) 1 sprays NA HS MARILY Stop: 10/25/23 20:59 Last Admin: 09/25/23 20:40 Dose: 1 sprays Documented By: TKB Gabapentin (Gabapentin 300 Mg Cap) 600 mg PO QID MARILY Stop: 10/25/23 12:59 Last Admin: 09/25/23 20:39 Dose: 600 mg Documented By: Admin: 09/25/23 17:07 Dose: 600 mg Documented By: Admin: 09/25/23 16:25 Dose: Not Given Documented By: CMV Heparin Sodium (Porcine) (Heparin Sod 5,000 Unit/0.5 Ml Vial) 5,000 units SQ Q12 MARILY Stop: 10/25/23 20:59 Last Admin: 09/25/23 20:39 Dose: 5,000 units Documented By: TKB Sodium Chloride (Nss) 1,000 mls @ 60 mls/hr IV .[id number] MARILY Stop: 10/25/23 17:59 Last Admin: 09/25/23 18:24 Dose: 60 mls/hr Documented By: CMV Indapamide (Indapamide 1.25 Mg Tab) 2.5 mg PO DAILY MARILY Stop: 10/25/23 10:23 Last Admin: 09/25/23 18:05 Dose: 2.5 mg Documented By: CMV Lactobacillus Acidophilus (Advanced Probiotic 625 Mg Capsule) 1,250 mg PO DAILY MARILY Stop: 10/25/23 09:44 Last Admin: 09/25/23 16:24 Dose: Not Given Documented By: CMV Pantoprazole Sodium (Pantoprazole 40 Mg Tab) 40 mg PO BID MARILY Stop: 10/25/23 20:59 Last Admin: 09/25/23 20:39 Dose: 40 mg Documented By: TKB Rosuvastatin Calcium (Rosuvastatin Calcium 10 Mg Tab) 10 mg PO HS MARILY Stop: 10/25/23 20:59 Last Admin: 09/25/23 20:41 Dose: 10 mg Documented By: TKB Discontinued Medications Diatrizoate Meglumine (Diatrizoate Meglumine 30% 100ml Vial) 100 ml INSTIL ONCE ONE Stop: 09/25/23 12:39 Last Admin: 09/25/23 12:18 Dose: 1 ml Documented By: [id number] Sodium Chloride (Nss) 500 mls @ 999 mls/hr IV .Q31M STA Stop: 09/25/23 03:35 Last Infusion: 09/25/23 03:40 Dose: Infused Documented By: Admin: 09/25/23 03:14 Dose: 999 mls/hr Documented By: MAGDALENA Acetaminophen (Ofirmev) 1,000 mg in 100 mls @ 400 mls/hr IV NOW STA Stop: 09/25/23 03:19 Last Infusion: 09/25/23 03:40 Dose: Infused Documented By: Admin: 09/25/23 03:14 Dose: 400 mls/hr Documented By: MAGDALENA Ceftriaxone Sodium (Rocephin) 1,000 mg in 50 mls @ 100 mls/hr IV NOW STA Stop: 09/25/23 09:23 Last Infusion: 09/25/23 11:17 Dose: Infused Documented By: Admin: 09/25/23 09:06 Dose: 100 mls/hr Documented By: VANCE Sodium Chloride (Nss) 1,000 mls @ 60 mls/hr IV .[id number] MARILY Stop: 09/26/23 02:24 Last Infusion: 09/25/23 15:46 Dose: Infused Documented By: Admin: 09/25/23 10:45 Dose: 60 mls/hr Documented By: VANCE Lactated Ringer's (Lr) 1,000 mls @ 15 mls/hr IV .Q24H MARILY Stop: 10/25/23 11:59 Last Infusion: 09/25/23 12:10 Dose: Infused Documented By: Admin: 09/25/23 11:51 Dose: 15 mls/hr Documented By: BETO Ioversol (Optiray 320 100ml) 100 ml IV ONCE ONE Stop: 09/25/23 04:15 Last Admin: 09/25/23 04:15 Dose: 93 ml Documented By: MARIA INES Morphine Sulfate (Morphine Sulfate 2 Mg/Ml Carp) 2 mg IV NOW STA Stop: 09/25/23 08:38 Last Admin: 09/25/23 09:06 Dose: 2 mg Documented By: VANCE Ondansetron HCl (Ondansetron Inj 2 Mg/Ml 2 Ml Vial) 4 mg IV NOW STA Stop: 09/25/23 03:06 Last Admin: 09/25/23 03:14 Dose: 4 mg Documented By: MAGDALENA Oxycodone HCl (Oxycodone Hcl Ir 5 Mg Tab (Immediate Release)) Confirm Administered Dose 5 mg .ROUTE .STK-MED ONE Stop: 09/25/23 10:43 Last Admin: 09/25/23 10:43 Dose: 5 mg Documented By: VANCE Imaging Data Radiologist's Impression: Abdomen Fluoroscopy 09/25/23 00:00 FL KUB CLINICAL HISTORY: LEFT STENT TECHNIQUE: 1 views were obtained with the C-arm in the OR with the above procedure. Total fluoroscopy time was 9 seconds. Radiation dose was 1.56 mGy. Comparison: Comparison is made to CT abdomen pelvis 09/25/2023 FINDINGS/IMPRESSION: Intraoperative images were obtained of left cystogram and stent placement. In the final images, the stent is in satisfactory position. Please correlate with intraoperative fluoroscopy and operative report. ACT 112: Negative or not required by law. Electronically signed by: Wander Estevez M.D. 09/25/2023 12:54 PM Discharge Plan Visit Data Chief Complaint: Abdominal Pain Stated Complaint: ABD PAIN ED Provider: Chun Pina ED Midlevel Provider: Flash Lawson Discharge Problem: Abdominal pain, LLQ Patient Disposition: Admitted As Inpatient Discharge Instructions Interventions: ED Discharge Assessment Last Done: 09/25/23 10:18
[2023-09-25] MEDS: ACETAMINOPHEN 1,000 MG/100 ML VIAL IV STA (03:14)
[2023-09-25] MEDS: SODIUM CHLORIDE 0.9% 500 ML IV STA (03:14)
[2023-09-25] MEDS: ONDANSETRON INJ 2 MG/ML 2 ML VIAL IV STA (03:14)
[2023-09-25 03:29] LABS: Basophils # (auto) 0.05 K/uL (0.00-0.20); Basophils % (auto) 0.5 %; Eosinophils # (auto) 0.13 K/uL (0.00-0.50); Eosinophils % (auto) 1.3 %; Hematocrit (blood only) 45.9 % (37.0-47.0); Hemoglobin 15.2 g/dl (12.0-16.0); Immature Granulocytes # (auto) 0.03 K/uL (0.01-0.20); Immature Granulocytes % (auto) 0.3 %; Lymphocytes # (auto) 1.66 K/uL (1.20-3.40); Mean Corpuscular Hemoglobin 30.8 pg (25.0-34.0); Mean Corpuscular Hgb Conc 33.1 g/dL (32.0-36.0); Mean Corpuscular Volume 92.9 fL (80.0-100.0); Monocytes # (auto) 0.51 K/uL (0.11-0.59); Monocytes % (auto) 4.9 %; Platelet Count 225 K/uL (130-400); RDW Coefficient of Variation 13.2 % (11.5-14.5); RDW Standard Deviation 44.9 fL (36.4-46.3); Red Blood Count 4.94 M/uL (4.20-5.40); White Blood Count 10.38 K/ul (4.8-10.8)
[2023-09-25 03:44] LABS: Alanine Aminotransferase 14 U/L (7-52); Albumin Globulin Ratio 1.4 (0.9-2); Alkaline Phosphatase 48 U/L (34-104); Anion Gap 11 (3-11); Aspartate Aminotransferase 21 U/L (13-39); BUN Creatinine Ratio 32.2 (10-20); Bilirubin,Total 0.5 mg/dl (0.2-1.0); Blood Urea Nitrogen 39 mg/dl (6-23); Calcium 10.3 mg/dl (8.6-10.3); Carbon Dioxide 32 mmol/L (21-32); Chloride 98 mmol/L (98-107); Est GFR (African American) 48.3 ml/min; Est GFR (Non-African American) 41.6 ml/min; Globulin 2.9 gm/dl (2.5-4.0); Glucose 181 mg/dl (70-99(Fasting)); Lipase 26 U/L (11-82); Potassium 3.5 mmol/L (3.5-5.1); Sodium 141 mmol/L (136-145); Total Protein 6.9 gm/dl (6.0-8.3)
[2023-09-25 03:50] LABS: Troponin I High Sensitivity 5.7 pg/ml (0-14)
[2023-09-25 04:09] LABS: Partial Thromboplastin Ratio 0.9; Partial Thromboplastin Time 24 Seconds (21-31)
[2023-09-25] MEDS: OPTIRAY 320 100ml IV ONE (04:15)
--- NOTE | 2023-09-25 06:59 | XRay Report ---
SINGLE VIEW CHEST CLINICAL HISTORY: Generalized abdominal pain. FINDINGS: An AP, portable, upright chest radiograph is compared to study dated 09/16/2022. The cardiome diastinal silhouette is unremarkable noting atherosclerotic calcification of the thoracic aorta. Historic Sites Registrar jorge interstitial thickening is similar to previous. There is bibasilar scarring/atelectasis. No airsp amrik consolidation or large pleural effusion is identified. No pneumothorax is seen. The skeletal stru ctures are osteopenic. The bony thorax is grossly intact. Arthritic change is seen in the shoulders. IMPRESSION: No active disease in the chest. ACT 112: Negative or not required by law. Electronically signed by: Usama Jang M.D. 09/25/2023 6:57 AM
--- NOTE | 2023-09-25 07:49 | Emergency Department Note ---
ED Visit Note Patient case signed out to me at 0745 on 09/25/2023 from Tamia Butler PA-C pending CT scan of the abdomen/pelvis being read by radiology as well as urinalysis resulting. Please refer to PAT Butler note regarding chief complaint, ROS, HPI, MDM, decision making/plan up until point of signout. Patient presents to us today for evaluation of left lower quadrant abdominal pain. I did evaluate the patient at time of signout. She was resting comfortably but did have some pain. The CT scan resulted. Results as below. There is a 4 mm obstructing stone mid left ureteral calculus. Although there is a fair amount of epithelial cells in the urinalysis, there is concern for a UTI based on urinalysis noting the 3+ bacteria and positive nitrites. Pain started yesterday. Patient does have continuing pain here. I did order the patient IV morphine for pain as well. I ordered IV ceftriaxone for the complicated UTI. At this time we will proceed with inpatient management. Case also discussed with urology. Please refer to further documentation regarding her stay. ABDOMEN AND PELVIS CT WITH IV CONTRAST CT DOSE: 900.88 mGy.cm HISTORY: Acute left lower quadrant abdominal pain LLQ abdominal pain, h/o diverticulitis TECHNIQUE: Multiaxial CT images of the abdomen and pelvis were performed following the IV administration of 93 cc of Optiray, A dose lowering technique was utilized adhering to the principles of ALARA. COMPARISON STUDY: 09/16/2022 FINDINGS: Mild left hemidiaphragmatic elevation. Subsegmental bibasilar atelectasis. No free air. Unremarkable spleen, mildly atrophic pancreas and left adrenal gland. Indeterminate hypodense 9 mm right adrenal gland lesion, favored to be benign. Cholecystectomy. Unremarkable liver. Patency of the hepatic and portal veins. There are a few cysts of the kidneys including a 1.8 cm cyst of the inferior pole right kidney. Punctate nonobstructing bilateral renal calculi. Delayed left-sided nephrogram with mild left-sided hydroureteronephrosis secondary to an obstructing 4 x 4 x 4 mm calculus of the left ureter at the level of L3. Reactive perinephric and perirenal inflammatory stranding. Decompressed urinary bladder with mild wall thickening. Extensive atherosclerosis of aorta with infrarenal abdominal aortic ectasia measuring 2.4 x 2.4 cm. No lymphadenopathy. Duodenal diverticulum. Colonic diverticulosis. 5.7 cm right adnexal lesion suggestive of a uterine fibroid. No bowel obstruction or bowel wall thickening. Unremarkable soft tissues. Small fat filled umbilical hernia. There are a few chronic right anterior rib fractures. IMPRESSION: 1. Mild left-sided hydroureteronephrosis with delayed nephrogram secondary to an obstructing 4 mm mid left ureteral calculus. 2. Punctate nonobstructing bilateral nephrolithiasis. 3. Colonic diverticulosis. 4. No bowel obstruction or bowel wall thickening. 5. Fibroid uterus. ACT 112: Negative or not required by law. The above report was generated using voice recognition software. It may contain grammatical, syntax or spelling errors. Electronically signed by: Elton Fraire M.D. 09/25/2023 7:52 AM .
--- NOTE | 2023-09-25 07:53 | CT Scan Report ---
ABDOMEN AND PELVIS CT WITH IV CONTRAST CT DOSE: 900.88 mGy.cm HISTORY: Acute left lower quadrant abdominal pain LLQ abdominal pain, h/o diverticulitis TECHNIQUE: Multiaxial CT images of the abdomen and pelvis were performed following the IV administrat ion of 93 cc of Optiray, A dose lowering technique was utilized adhering to the principles of ALARA. COMPARISON STUDY: 09/16/2022 FINDINGS: Mild left hemidiaphragmatic elevation. Subsegmental bibasilar atelectasis. No free air. Unr emarkable spleen, mildly atrophic pancreas and left adrenal gland. Indeterminate hypodense 9 mm right adrenal gland lesion, favored to be benign. Cholecystectomy. Unremarkable liver. Patency of the hepa tic and portal veins. There are a few cysts of the kidneys including a 1.8 cm cyst of the inferior pole right kidney. Punct ate nonobstructing bilateral renal calculi. Delayed left-sided nephrogram with mild left-sided hydrou reteronephrosis secondary to an obstructing 4 x 4 x 4 mm calculus of the left ureter at the level of L3. Reactive perinephric and perirenal inflammatory stranding. Decompressed urinary bladder with mild wall thickening. Extensive atherosclerosis of aorta with infrarenal abdominal aortic ectasia measuri ng 2.4 x 2.4 cm. No lymphadenopathy. Duodenal diverticulum. Colonic diverticulosis. 5.7 cm right adnexal lesion suggestive of a uterine fi broid. No bowel obstruction or bowel wall thickening. Unremarkable soft tissues. Small fat filled umb ilical hernia. There are a few chronic right anterior rib fractures. IMPRESSION: 1. Mild left-sided hydroureteronephrosis with delayed nephrogram secondary to an obstructing 4 mm mid left ureteral calculus. 2. Punctate nonobstructing bilateral nephrolithiasis. 3. Colonic diverticulosis. 4. No bowel obstruction or bowel wall thickening. 5. Fibroid uterus. ACT 112: Negative or not required by law. The above report was generated using voice recognition software. It may contain grammatical, syntax o r spelling errors. Electronically signed by: Elton Fraire M.D. 09/25/2023 7:52 AM
[2023-09-25 08:34] LABS: Appearance Urine Cloudy (Clear); Bacteria Urine Automated 3+ (None Seen); Bilirubin Urine Negative (Negative); Blood Urine 3+ (Negative); Calcium Oxalate Crystals Urine Present (None Prsent); Cast Urine Automated 0-2 /lpf (0-2); Color Urine Yellow; Epithelial Cell Urine Auto >20 /hpf (0-2); Glucose Urine UA Negative (Negative); Ketones Urine Negative (Negative); Leukocyte Esterase Urine Trace (Negative); Nitrite Urine Positive (Negative); Protein Urine 1+ (Negative); RBC Urine Automated >20 /hpf (0-2); Specific Gravity Urine > 1.045 (1.000-1.030); Urobilinogen Urine Negative (Negative)
[2023-09-25] MEDS ORDERED: cefTRIAXone SODIUM 2,000 MG/50 ML BAG IV STA (08:54)
[2023-09-25] MEDS: cefTRIAXone SODIUM 1,000 MG/50 ML BAG IV STA (09:06)
[2023-09-25] MEDS: MoRPHine SULFATE 2 MG/ML CARP IV STA (09:06)
[2023-09-25] MEDS ORDERED: ONDANSETRON INJ 2 MG/ML 2 ML VIAL IV PRN (09:41)
[2023-09-25] MEDS ORDERED: POLYETHYLENE (MIRALAX) 17 GM PACK PO PRN (09:41)
[2023-09-25] MEDS ORDERED: ALUMINUM/MAGNESIUM SUSP 30 ML UDC PO PRN (09:41)
--- NOTE | 2023-09-25 09:57 | History & Physical Report ---
Date of Service September 25, 2023 Assessment & Plan (1) UTI (urinary tract infection): Plan Obstructive uropathy Complicated UTI Patient presenting with left flank pain radiating down to left groin. No CVA angle tenderness, no pain and burning with passing urine. UA suggestive of UTI, follow admitting urine and blood culture. CTAP w/ left obstructing stone. Patient started on Rocephin, will continue Rocephin Add probiotics Discussed with urology, plan for possible stent placement today, n.p.o. until urology eval. Acute kidney injury: Baseline creatinine around 0.9, admitting creatinine of 1.21, likely secondary to obstructive uropathy. Will continue with IV fluid, expect to improve with release of obstruction. labs in AM. Other chronic medical conditions: Continue with/resume home meds as and when able Paroxysmal atrial tachycardiadiagnosed during last admission, patient was supposed to get outpatient Zio patch monitoring per review of discharge summary, patient on a small dose of beta-sav, continue. f/u cardio on dc. HTN, history of parathyroidectomy, neuropathy DVT prophylaxis: Heparin subcu Full code History of Present Illness Chief Complaint: Left flank pain Primary Care Provider: Hernan Fernández MD 81-year-old lady with PMH of HLD, parathyroidectomy, PAD, HTN, GERD, CKD stage III, migraine, peripheral neuropathy presented to the ED 09/24 with complaint of left flank pain for 1 day, denies fever, denies pain or burning while passing urine, reports feeling rundown/ill/sick. Patient denies sore throat/dizziness/cough/chest pain/palpitation. Patient reports some headache - she uses fioricet at home prn, reports improving recent diarrhea. Pt Reports left flank pain going down to her left groin. Patient was discharged 2 days ago, hence medications were reviewed from the discharge summary. Patient denies any new medication changes since her last discharge. Patient quit smoking 1994, denies alcohol/recreational drug use. Full code as per my discussion with the patient. Plan of care discussed with the patient in detail, she voiced understanding. Discussed with urology, possible plan for stent placement today. Allergies Allergy/AdvReac Type Severity Reaction Status Date / Time No Known Allergies Allergy Verified 09/16/22 18:28 Home Medications Medication Instructions Recorded Confirmed Type gabapentin 300 mg capsule 600 mg PO QID 05/03/18 09/16/22 History magnesium oxide 400 mg PO QAM 05/03/18 09/16/22 History multivitamin 1 tab PO QAM 05/03/18 09/16/22 History omeprazole 20 mg tablet,delayed 20 mg PO BID 05/03/18 09/16/22 History release calcitriol 0.5 mcg capsule 1 mcg PO QAM 06/01/18 09/16/22 History (Rocaltrol) dorzolamide 22.3 mg-timolol 6.8 1 drp OPB BID 06/01/18 09/16/22 History mg/mL eye drops (Cosopt) duloxetine 60 mg capsule,delayed 60 mg PO DAILY 06/01/18 09/16/22 History release (Cymbalta) indapamide 2.5 mg tablet 2.5 mg PO DAILY 06/01/18 09/16/22 History latanoprost 0.005 % eye drops 1 drp ophthalmic (eye) HS 06/01/18 09/16/22 History (Xalatan) aspirin 81 mg tablet,delayed 81 mg PO QAM 06/24/20 09/16/22 History release (Ed Low Dose Aspirin) amlodipine 2.5 mg tablet 2.5 mg PO DAILY 09/04/22 09/16/22 History rosuvastatin 10 mg tablet 10 mg PO HS 09/04/22 09/16/22 History ucrhahnydf-pgvzjsaulprkw-hnxpdwrc 1 cap PO Q8H PRN headache #20 caps 09/06/22 09/16/22 Rx 50 mg-300 mg-40 mg capsule (Fioricet) fluticasone propionate 50 1 spray intranasal HS 09/16/22 09/16/22 History mcg/actuation nasal spray,suspension (Flonase Allergy Relief) tizanidine 2 mg tablet 2 mg PO TID PRN Muscle Spasm 09/16/22 09/16/22 History Past Med/Surg History Problem List UTI (urinary tract infection) Tachy-bob syndrome Wenckebach Atrial tachycardia, paroxysmal Sinus tachycardia Arrhythmia (Acute) Acute electrocardiogram changes Tachycardia (Acute) Constipation (Acute) HTN (hypertension) (Chronic) GERD (gastroesophageal reflux disease) (Chronic) Migraine (Chronic) Dyslipidemia (Chronic) Vitamin D deficiency (Chronic) Osteoporosis (Chronic) Neuropathy (Chronic) H/O parathyroidectomy (Chronic) "09/26/13" Medical History Bilateral tinnitus Chronic pain both feet and legs Closed fracture of distal end of right fibula Dyslipidemia GERD (gastroesophageal reflux disease) Glaucoma H/O parathyroidectomy History of hydronephrosis HTN (hypertension) Hyperlipidemia Migraine Nephrolithiasis Neuropathy BOTH FEET AND LEGS Osteoporosis Vitamin D deficiency Surgical History H/O parathyroidectomy "09/26/13" History of back surgery lower Hx of bilateral cataract extraction Hx of cholecystectomy Family History Other Cancer Social History Smoking Status: Former smoker Tobacco Type: Cigarettes Second Hand Exposure: No; Do You Dip or Chew Tobacco: No; Hx Alcohol Use: No Hx Substance Use: No Preferred Language: Mongolian Communication Ability: Effective Visual Merchandise Manager Required: No Beliefs That Will Affect Care: None marital status: / Current Living Situation: Family Current Living Situation Comment: lives with daughter and granddaughter How many Children do You have: 2 Feels Safe at Home: Yes Assistive Devices: Glasses and Walker Review of Systems Review of Systems: Negative otherwise mentioned in HPI. Physical Exam Physical Exam: GENERAL: Alert and oriented x3. NAD, on RA. Appears ill/frail and sick. HEENT: No pallor, no icterus. Pupils equal, round and reactive to light. Oral mucosa moist. NECK: No JVD, no neck masses. HEART: S1 and S2 heard. Regular rate and rhythm. No murmur, no gallop. RESPIRATORY SYSTEM: Normal AP diameter. No accessory muscle use. No wheezing, no crackles. ABDOMEN: Soft, bowel sounds present, left flank and LLQ tender, no distention. CENTRAL NERVOUS SYSTEM: No facial droop. Speech is clear. Obeys simple commands. Moves extremities. EXTREMITIES: No edema, no erythema seen. No cva angle tenderness x bilateral. Results & Data Results & Data Vital Signs (Past 12 Hours) Vital Signs Temp Pulse Pulse Resp BP BP Pulse Ox 09/25/23 09:17 81 18 148/71 H 97 09/25/23 09:17 81 18 97 09/25/23 08:00 59 L 18 163/79 H 93 09/25/23 06:00 75 18 115/65 92 09/25/23 04:25 78 17 143/50 H 91 09/25/23 03:10 102 H 19 139/74 96 09/25/23 02:51 36.5 C 75 18 142/52 H 93 O2 Del Method O2 Flow Rate 09/25/23 09:17 Nasal Cannula 2 09/25/23 09:17 Nasal Cannula 2 09/25/23 08:00 Room Air 09/25/23 06:00 Room Air 09/25/23 04:25 Room Air 09/25/23 03:10 Room Air 09/25/23 02:51 Room Air
[2023-09-25] MEDS ORDERED: MoRPHine SULFATE 2 MG/ML CARP IV PRN (10:09)
[2023-09-25] MEDS ORDERED: oxyCODONE HCL IR 5 MG TAB (IMMEDIATE RELEASE) PO PRN (10:09)
[2023-09-25] MEDS ORDERED: tiZANidine HCL 4 MG TABLET PO PRN (10:24)
--- NOTE | 2023-09-25 10:39 | Anesthesiology Consultation ---
Date of Service September 25, 2023 Assessment & Plan Chart Review Chart Review: Acceptable Risk for Surgery and Patient NOT seen in Pre Admission Testing Consults Requested none ASA [id number] Proposed Anesthesia Anesthesia Type: MAC History Surgery Operation Date: 09/25/23 08:55 Proposed Procedures p Cystoscopy Left Retrograde Pyelogram Stent - Jimmy Tiwari MD Height/Weight Height: 5 ft 3 in Allergies Allergy/AdvReac Type Severity Reaction Status Date / Time No Known Allergies Allergy Verified 09/16/22 18:28 Medications Home Medications Medication Instructions Recorded Confirmed Last Taken gabapentin 300 mg capsule 600 mg PO QID 05/03/18 09/16/22 09/16/22 08:00 magnesium oxide 400 mg PO QAM 05/03/18 09/16/22 09/16/22 multivitamin 1 tab PO QAM 05/03/18 09/16/22 09/16/22 omeprazole 20 mg tablet,delayed 20 mg PO BID 05/03/18 09/16/22 09/16/22 08:00 release calcitriol 0.5 mcg capsule 1 mcg PO QAM 06/01/18 09/16/22 09/16/22 (Rocaltrol) dorzolamide 22.3 mg-timolol 6.8 1 drp OPB BID 06/01/18 09/16/22 09/16/22 08:00 mg/mL eye drops (Cosopt) duloxetine 60 mg capsule,delayed 60 mg PO DAILY 06/01/18 09/16/22 09/16/22 release (Cymbalta) indapamide 2.5 mg tablet 2.5 mg PO DAILY 06/01/18 09/16/22 09/16/22 latanoprost 0.005 % eye drops 1 drp ophthalmic (eye) HS 06/01/18 09/16/22 09/15/22 (Xalatan) aspirin 81 mg tablet,delayed 81 mg PO QAM 06/24/20 09/16/22 09/16/22 release (Ed Low Dose Aspirin) amlodipine 2.5 mg tablet 2.5 mg PO DAILY 09/04/22 09/16/22 09/16/22 rosuvastatin 10 mg tablet 10 mg PO HS 09/04/22 09/16/22 09/15/22 xtodcrwxdw-hazhenieylhzx-fugadnyv 1 cap PO Q8H PRN headache #20 caps 09/06/22 09/16/22 Unknown 50 mg-300 mg-40 mg capsule (Fioricet) fluticasone propionate 50 1 spray intranasal HS 09/16/22 09/16/22 09/15/22 mcg/actuation nasal spray,suspension (Flonase Allergy Relief) tizanidine 2 mg tablet 2 mg PO TID PRN Muscle Spasm 09/16/22 09/16/22 Unknown Past Medical History Medical History Nephrolithiasis History of hydronephrosis Closed fracture of distal end of right fibula Glaucoma Bilateral tinnitus Chronic pain both feet and legs Neuropathy BOTH FEET AND LEGS Hyperlipidemia H/O parathyroidectomy ASCD Aorta HLD HX/O Atrial tachycardia Exercise / Class Metabolic Activity III < 4 Walking/Shop/Light housework Past Family History Family History Other Cancer Past Surgical History Surgical History Hx of bilateral cataract extraction Hx of cholecystectomy History of back surgery lower Past Anesthesia History No Hx of Anesthesia Complications and No Family Hx of Anesthesia Complications History of PONV No Hx of PONV and No Hx of Motion Sickness Social History Smoking Status: Former smoker tobacco type: cigarettes Do You Dip or Chew Tobacco: No Hx Alcohol Use: No Hx Substance Use: No substance use type: does not use Physical Exam Vital Signs Last Vital Signs Temp 36.5 C 09/25/23 02:51 Pulse 71 09/25/23 10:28 Resp 18 09/25/23 09:17 BP 148/71 H 09/25/23 09:17 Pulse Ox 97 09/25/23 09:17 O2 Del Method Nasal Cannula 09/25/23 09:17 O2 Flow Rate 2 09/25/23 09:17 Testing Laboratory Results 09/25/23 03:07 09/25/23 03:07 PT 11.0 Seconds (9.0-12.0) 09/25/23 03:07 INR 1.0 (0.9-1.1) 09/25/23 03:07 APTT 24 Seconds (21-31) 09/25/23 03:07 Urine Color Yellow 09/25/23 07:34 Urine Appearance Cloudy (Clear) A 09/25/23 07:34 Urine pH 5.0 (4.5-7.5) 09/25/23 07:34 Ur Specific [place] > 1.045 (1.000-1.030) H 09/25/23 07:34 Urine Protein 1+ (Negative) H 09/25/23 07:34 Urine Glucose (UA) Negative (Negative) 09/25/23 07:34 Urine Ketones Negative (Negative) 09/25/23 07:34 Urine Nitrite Positive (Negative) A 09/25/23 07:34 Ur Leukocyte Esterase Trace (Negative) H 09/25/23 07:34 Urine WBC (Auto) 6-10 /hpf (0-5) H 09/25/23 07:34 Urine RBC (Auto) >20 /hpf (0-2) H 09/25/23 07:34 U Hyaline Cast (Auto) 0-2 /lpf (0-2) 09/25/23 07:34 U Epithel Cells (Auto) >20 /hpf (0-2) H 09/25/23 07:34 Urine Bacteria (Auto) 3+ (None Seen) H 09/25/23 07:34 Electrocardiogram Date: 09/18/22 Findings: + ST @ (@ 106 vs Atrial [place];prolonged QT;NS ST & T wae changes) Echocardiogram Date: 09/17/22 EF: 60% LV Function: normal RWMA: + none Other Findings: + LVH (mild) Valvular Disease: + AI (moderate)
[2023-09-25] MEDS: oxyCODONE HCL IR 5 MG TAB (IMMEDIATE RELEASE) ONE (10:43)
[2023-09-25] MEDS ORDERED: Patient's HEIGHT &/or WEIGHT Needed SCH (10:45)
[2023-09-25] MEDS: SODIUM CHLORIDE 0.9% 1,000 ML IV SCH ×2 (10:45→18:24)
[2023-09-25] MEDS ORDERED: fentaNYL citrate PF 100 MCG/2 ML VIAL ONE (11:21)
[2023-09-25] MEDS ORDERED: PROPOFOL IV EMULSION 10 MG/ML 20 ML VIAL IV ONE (11:22)
[2023-09-25] MEDS ORDERED: ONDANSETRON INJ 2 MG/ML 2 ML VIAL ONE (11:22)
[2023-09-25] MEDS ORDERED: LIDOCAINE 2% 2 ML VIAL/AMP(20MG/ML) INFIL ONE (11:22)
--- NOTE | 2023-09-25 11:28 | Urology Consultation ---
<Statement entered by Jimmy Tiwari MD - 09/25/23 11:30> I have discussed Mr. Rivera's case with MATTHEW Simmons and agree with the above documentation. Clinical picture is concerning for an obstructing left ureteral stone in the setting of urinary tract infection. In this case we will plan on cystoscopy, left retrograde pyelogram, left ureteral stent placement. -Jimmy Tiwari MD. Date of Consultation September 25, 2023 Assessment & Plan (1) UTI (urinary tract infection): (2) Left ureteral calculus: (3) Hydronephrosis: (4) Left flank pain: Plan We reviewed her CT findings, specifically the obstructing 4 mm left ureteral stone. Reviewed that her urinalysis appears infected. Given the concern for infection in the setting of an obstructing stone, our recommendation is to proceed to the OR for cystoscopy and ureteral stent placement. Ureteral stents were discussed as well as postoperative issues and pain management. She is aware a second procedure would be needed for stone treatment after the infection has cleared. The risks and benefits were discussed. All questions were answered. Pt is agreeable to proceeding. Will plan to proceed to the OR today for cystoscopy, left retrograde pyelogram, left ureteral stent placement. Risks and benefits to be reviewed with patient by Dr. Tiwari. OR notified. Covered with scheduled IV ceftriaxone. Keep NPO. Continue supportive care. Urology to follow History of Present Illness Attending Physician: Stewart Mendoza MD History of Present Illness 82-year-old female with PMHx of HLD, parathyroidectomy, PAD, HTN, GERD, CKD stage III, migraine, peripheral neuropathy who presented to the ED 09/24 with complaints of sever left flank pain and ill-feelings. On arrival she was afebrile, hypertensive, otherwise stable. Labs show no leukocytosis and creatinine 1.21. Urinalysis suggestive of infection with 3+ blood, positive nitrite, trace LE, 3+ bacteria, calcium oxalate crystals present. Urine and blood cultures collected and pending. CT abdomen pelvis was notable for mild left-sided hydroureteronephrosis with delayed nephrogram secondary to an obs tructing 4 mm mid left ureteral calculus and additional punctate nonobstructing bilateral nephrolithiasis. ED course includes Zofran, Tylenol, morphine, and ceftriaxone. Patient admitted to medicine service. Patient seen at bedside today in the ED. Awake, resting in bed on arrival. No acute distress. Still with left flank pain. Denies f/c/n/v. Denies hematuria and dysuria. Patients states she has not had anything to eat or drink since yesterday. History of stones with spontaneous passage. Was previously seen in our office in 2020. Allergies Allergy/AdvReac Type Severity Reaction Status Date / Time No Known Allergies Allergy Verified 09/16/22 18:28 Home Medications Medication Instructions Recorded Confirmed Type gabapentin 300 mg capsule 600 mg PO QID 05/03/18 09/16/22 History magnesium oxide 400 mg PO QAM 05/03/18 09/16/22 History multivitamin 1 tab PO QAM 05/03/18 09/16/22 History omeprazole 20 mg tablet,delayed 20 mg PO BID 05/03/18 09/16/22 History release calcitriol 0.5 mcg capsule 1 mcg PO QAM 06/01/18 09/16/22 History (Rocaltrol) dorzolamide 22.3 mg-timolol 6.8 1 drp OPB BID 06/01/18 09/16/22 History mg/mL eye drops (Cosopt) duloxetine 60 mg capsule,delayed 60 mg PO DAILY 06/01/18 09/16/22 History release (Cymbalta) indapamide 2.5 mg tablet 2.5 mg PO DAILY 06/01/18 09/16/22 History latanoprost 0.005 % eye drops 1 drp ophthalmic (eye) HS 06/01/18 09/16/22 History (Xalatan) aspirin 81 mg tablet,delayed 81 mg PO QAM 06/24/20 09/16/22 History release (Ed Low Dose Aspirin) amlodipine 2.5 mg tablet 2.5 mg PO DAILY 09/04/22 09/16/22 History rosuvastatin 10 mg tablet 10 mg PO HS 09/04/22 09/16/22 History mquecijega-libvjrhfqqgzn-zgkayljt 1 cap PO Q8H PRN headache #20 caps 09/06/22 09/16/22 Rx 50 mg-300 mg-40 mg capsule (Fioricet) fluticasone propionate 50 1 spray intranasal HS 09/16/22 09/16/22 History mcg/actuation nasal spray,suspension (Flonase Allergy Relief) tizanidine 2 mg tablet 2 mg PO TID PRN Muscle Spasm 09/16/22 09/16/22 History Patient History Medical History Nephrolithiasis History of hydronephrosis Closed fracture of distal end of right fibula Glaucoma Bilateral tinnitus Chronic pain both feet and legs Neuropathy BOTH FEET AND LEGS Hyperlipidemia H/O parathyroidectomy Surgical History Hx of bilateral cataract extraction Hx of cholecystectomy History of back surgery lower Family History Other Cancer Social History Smoking Status: Former smoker Tobacco Type: Cigarettes Second Hand Exposure: No; Do You Dip or Chew Tobacco: No; Hx Alcohol Use: No Hx Substance Use: No Preferred Language: Amharic Communication Ability: Effective Machine Molder Required: No Beliefs That Will Affect Care: None marital status: / Current Living Situation: Family Current Living Situation Comment: lives with daughter and granddaughter How many Children do You have: 2 Feels Safe at Home: Yes Assistive Devices: Glasses and Walker Review of Systems Review of Systems: All systems reviewed & are unremarkable except as noted in HPI & below Physical Exam Constitutional: no acute distress and + uncomfortable Respiratory: no respiratory distress and no labored breathing Musculoskeletal: Head/Neck/Chest: normocephalic Skin: No visible rashes or lesions to exposed skin areas Neurologic: moves all extremities and awake Psychiatric: Orientation: alert, oriented x 3 and cooperative Results & Data Vital Signs (Past 12 Hours) Vital Signs Temp Pulse Pulse Resp BP BP Pulse Ox 09/25/23 10:28 71 09/25/23 09:17 81 18 148/71 H 97 09/25/23 09:17 81 18 97 09/25/23 08:00 59 L 18 163/79 H 93 09/25/23 06:00 75 18 115/65 92 09/25/23 04:25 78 17 143/50 H 91 09/25/23 03:10 102 H 19 139/74 96 09/25/23 02:51 36.5 C 75 18 142/52 H 93 O2 Del Method O2 Flow Rate 09/25/23 10:28 09/25/23 09:17 Nasal Cannula 2 09/25/23 09:17 Nasal Cannula 2 09/25/23 08:00 Room Air 09/25/23 06:00 Room Air 09/25/23 04:25 Room Air 09/25/23 03:10 Room Air 09/25/23 02:51 Room Air PG Care Time/CCT Total # of Minutes Spent Total Time Spent with Patient: Total time spent is greater than 50% in coordination of care (as documented) at patient's floor/unit and/or counseling patient: Coding Level of Care Code 30548 INT INP/OBS CARE 2/55MIN Diagnoses UTI (urinary tract infection) N39.0 Left ureteral calculus N20.1 Hydronephrosis N13.30 Left flank pain R10.9
[2023-09-25] MEDS: LACTATED RINGER'S 1,000 ML IV SCH (11:51)
[2023-09-25] MEDS ORDERED: DIATRIZOATE MEGLUMINE 30% 100ML VIAL INSTIL PRN (11:58)
[2023-09-25] MEDS ORDERED: ATROPINE SULFATE 0.1 MG/ML 10ML SYR IV PRN (12:08)
[2023-09-25] MEDS ORDERED: ePHEDrine sulfate 50 MG/ML AMP IV PRN (12:08)
[2023-09-25] MEDS: DIATRIZOATE MEGLUMINE 30% 100ML VIAL INSTIL ONE (12:18)
--- NOTE | 2023-09-25 12:33 | Operative Report ---
PG Post Operative Report Pre & Post Diagnosis Operation Date: 09/25/23 08:55 Pre-Op Diagnosis: Left Ureteral Stone Post-Op Diagnosis: Left Ureteral Stone, bladder mass I identified the patient and participated in the time-out.: Yes Procedure Operation Date: 09/25/23 08:55 Actual Procedures p Cystoscopy, Left Retrograde Pyelogram, Left Ureteral Stent Insertion - Jimmy Tiwari MD Surgeon Jimmy Tiwari MD Bale Opener None Estimated Blood Loss 0 Findings See Below Successful left ureteral stent placement, turbid urine draining from the stent at the end of the procedure. Incidental finding of approximately 2 cm bladder mass on the right wall of the bladder. Specimens None Drains 6 Romanian by 24 cm double-J ureteral stent in the left ureter Anesthesia Type MAC Complications none Disposition Accompanied Patient To Recovery: Yes Disposition: Recovery Room Indications This is an 82-year-old female who presented to the emergency department and was found to have a left ureteral stone as well as suspected urinary tract infection. She is being brought to the OR for left ureteral stent placement. Description of Procedure The patient was identified in the holding area and informed consent was confirmed. She was marked on the left side, then was taken to the operating room where anesthesia was initiated. She was placed in the dorsal lithotomy position with all pressure points appropriately padded. She was prepped and draped in the usual sterile fashion and a preoperative timeout was performed. A well-lubricated cystoscope was inserted per urethra and panendoscopy was performed. The urethra was normal in appearance. Bladder was notable for an incidental finding of approximately 2 cm papillary appearing superficial bladder mass on the right wall of the bladder. Ureteral orifices were in orthotopic position. The left ureteral orifice was identified and cannulated with a 5 Romanian open- ended catheter. A retrograde pyelogram was performed demonstrating the distal ureter was normal in course and caliber. There was a delayed nephrogram from earlier contrast in the left kidney and upper tract could be visualized. A 0.038" ZIPwire was advanced to the level of the kidney under fluoroscopic guidance. Over the wire, a 6 Romanian x 24 centimeter double-J ureteral stent was advanced. When the wire was removed, the proximal curl was visualized in the kidney with x-ray, and the distal curl visualized in the bladder with the cystoscope. There was drainage of purulent appearing urine from the left upper tract through the stent. At this point the bladder was drained and all instrumentation was removed. The patient was then awakened from anesthesia and was brought to the PACU in stable condition. I attest to the content of the Intraoperative Record and any orders documented therein. Any exceptions are noted below.
--- NOTE | 2023-09-25 12:55 | Fluoroscopy Report ---
FL KUB CLINICAL HISTORY: LEFT STENT TECHNIQUE: 1 views were obtained with the C-arm in the OR with the above procedure. Total fluoroscopy time was 9 seconds. Radiation dose was 1.56 mGy. Comparison: Comparison is made to CT abdomen pelvis 09/25/2023 FINDINGS/IMPRESSION: Intraoperative images were obtained of left cystogram and stent placement. In th e final images, the stent is in satisfactory position. Please correlate with intraoperative fluoroscopy and operative report. ACT 112: Negative or not required by law. Electronically signed by: Wander Estevez M.D. 09/25/2023 12:54 PM
--- NOTE | 2023-09-25 13:02 | Anesthesiology Progress Note ---
Date of Service September 25, 2023 Anesthesia Post Procedure Vital Signs Vital Signs: Temp Pulse Pulse Pulse Resp BP BP 09/25/23 12:55 36.4 C L 70 20 152/75 H 09/25/23 12:45 91 H 18 153/81 H 09/25/23 12:35 36.1 C L 97 H 16 159/79 H 09/25/23 11:45 36.5 C 55 L 20 09/25/23 11:14 36.7 C 70 22 09/25/23 10:28 71 09/25/23 09:17 81 18 09/25/23 09:17 81 18 09/25/23 08:00 59 L 18 09/25/23 06:00 75 18 09/25/23 04:25 78 17 09/25/23 03:10 102 H 19 09/25/23 02:51 36.5 C 75 18 142/52 H BP Pulse Ox O2 Del Method O2 Flow Rate 09/25/23 12:55 95 Nasal Cannula 2 09/25/23 12:45 98 Oxymask 4 09/25/23 12:35 98 Oxymask 6 09/25/23 11:45 141/49 H 95 Nasal Cannula 2 09/25/23 11:14 152/53 H 98 Nasal Cannula 2 09/25/23 10:28 09/25/23 09:17 148/71 H 97 Nasal Cannula 2 09/25/23 09:17 97 Nasal Cannula 2 09/25/23 08:00 163/79 H 93 Room Air 09/25/23 06:00 115/65 92 Room Air 09/25/23 04:25 143/50 H 91 Room Air 09/25/23 03:10 139/74 96 Room Air 09/25/23 02:51 93 Room Air Pain Intensity Left Flank: Pain Intensity: 10 Transfer of Care Handoff Completed per policy Notes Mental Status: alert / awake / arousable Patient Amnestic to Procedure: Yes Nausea / Vomiting: adequately controlled Pain: adequately controlled Airway Patency, RR, SpO2: stable & adequate BP & HR: stable & adequate Hydration State: stable & adequate Anesthetic Complications: no major complications apparent
[2023-09-25] MEDS: ADVANCED PROBIOTIC 625 MG CAPSULE PO SCH (16:24)
[2023-09-25] MEDS: INDAPAMIDE 1.25 MG TAB PO SCH (16:24)
[2023-09-25] MEDS: amLODIPine BESYLATE 5 MG TAB PO SCH (16:24)
[2023-09-25] MEDS: DULoxetine HCL 60 MG CAP PO SCH (16:24)
[2023-09-25] MEDS: GABAPENTIN 300 MG CAP PO SCH (16:25)
[2023-09-25] MEDS: PANTOprazole 40 MG TAB PO SCH (20:39)
[2023-09-25] MEDS: HEPARIN SOD 5,000 UNIT/0.5 ML VIAL SQ SCH (20:39)
[2023-09-25] MEDS: DORZOLAMIDE/TIMOLOL 22.3/6.8MG/ML 10 ML BTL OPB SCH (20:40)
[2023-09-25] MEDS: FLUTICASONE PROPIONATE NA SPR 16 GM BTL SCH (20:40)
[2023-09-25] MEDS: ROSUVASTATIN CALCIUM 10 MG TAB PO SCH (20:41)
[2023-09-25] MEDS: LATANOPROST 0.005% OP SOLN 2.5 ML BTL OP SCH (21:07)
--- OUTSIDE RECORDS SUMMARY | 2023-09-26 00:49 | External Medical Summary | Summary of Care ---
Author Name Unknown Organization [facility] Address [address] [place] [address] Phone [phone] Care Team Providers Care Development Vice President Name Role Phone Toya Wu DO Primary Care Provider [phone] Reason for Visit * Reason Comments Outpatient Testing Encounter Details Date Type Department Care Team (Latest Contact Info) Description 08/28/2023 1:50 PM EDT Laboratory Laboratory, [facility] [address] [facility] [place] [id number] [facility]in [facility] [address] Prediabetes; Surgical hypoparathyroidism ([facility]); Dyslipidemia, goal LDL below 130; Paroxysmal atrial tachycardia ([facility]); HTN, goal below 140/90; Gastroesophageal reflux disease, unspecified whether esophagitis present; Chronic renal failure, stage 3a ([facility]); High risk for fracture due to osteoporosis by DEXA scan; Lung crackles Allergies No known active allergiesdocumented as of this encounter (statuses as of 08/28/2023) Medications Medication Sig Dispensed Refills Start Date End Date Status MULTIVITAMIN/MULTIMINE RAL PO TABS 1 TABLET DAILY 0 11/08/2004 Active ASPIRIN 81 MG PO CHEWIndications:Centra l retinal vein occlusion One pill by mouth once a day with food 100 Tab 5 01/01/2010 Active MAGOX 400 400 (241.3 MG) MG PO TABS 1 tab daILY 30 Tab 0 03/03/2014 Active dorzolamide (TRUSOPT OCUMETER PLUS) 2 % ophthalmic solution Instill 1 Drop into both eyes at bedtime. 0 01/19/2017 Active latanoprost (XALATAN) 0.005 % ophthalmic solution Instill 1 Drop into both eyes in the morning and 1 Drop before bedtime. 0 02/07/2017 Active Calcitriol 0.5 MCG Oral Capsule (Rocaltrol) TAKE 2 CAPSULES EVERY DAY IN THE MORNING 180 Capsule 3 04/23/2022 Active Rosuvastatin Calcium 10 MG Oral Tablet (Crestor) Take 1 Tablet by mouth at bedtime. 90 Tablet 3 05/21/2022 Active Omeprazole 20 MG Oral Capsule Delayed Release (PriLOSEC)Indications: Gastritis and gastroduodenitis TAKE 1 CAP TWICE DAILY 30 MINUTES BEFORE A MEAL. 180 Capsule 1 10/29/2022 Active Indapamide 2.5 MG Oral Tablet (Lozol) TAKE 1 TABLET EVERY DAY 90 Tablet 1 12/11/2022 Active DULoxetine HCl 60 MG Oral Capsule Delayed Release Particles (Cymbalta) TAKE 1 CAPSULE BY MOUTH DAILY (DO NOT CUT, CRUSH OR CHEW). 90 Capsule 0 12/23/2022 Active amLODIPine Besylate 2.5 MG Oral Tablet (Norvasc) TAKE 1 TABLET EVERY MORNING 90 Tablet 0 12/23/2022 Active tiZANidine HCl 2 MG Oral CapsuleIndications:Spa sm of muscle Take 1 Capsule by mouth 3 times a day as needed for Muscle spasms. 30 Capsule 1 12/23/2022 Active Metoprolol Tartrate 25 MG Oral Tablet (Lopressor)Indications :PAT (paroxysmal atrial tachycardia) (HCC) Take 1 Tablet by mouth in the morning and 1 Tablet before bedtime. 200 Tablet 3 05/05/2023 Active Indapamide 2.5 MG Oral Tablet (Lozol) Take 1 tablet by mouth daily 90 Tablet 0 12/11/2022 Active Gabapentin 300 MG Oral Capsule (Neurontin)Indications :Hereditary and idiopathic peripheral neuropathy TAKE 2 CAPSULES BY MOUTH FOUR TIMES DAILY 800 Capsule 3 07/22/2023 Active Gabapentin 300 MG Oral Capsule (Neurontin)Indications :Hereditary and idiopathic peripheral neuropathy TAKE 2 CAPSULES BY MOUTH FOUR TIMES DAILY 32 Capsule 0 07/22/2023 Active Vyzulta 0.024 % Ophthalmic Solution (Latanoprostene Bunod) instill 1 drop into both eyes daily at bedtime 7.5 mL 3 08/14/2023 Active documented as of this encounter (statuses as of 08/28/2023) Active Problems Problem Noted Date Diagnosed Date Open-angle glaucoma 06/29/2023 Prediabetes 03/23/2023 Overview: Per Prediabetes protocol Paroxysmal atrial tachycardia 12/23/2022 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 HTN, goal below 140/90 07/03/2003 IDIO PERIPH NEURPTHY NOS 07/14/2002 Esophageal reflux CLASSICAL MIGRAINE WITHOU MENTION OF INTRACTABLE MIGRAINE documented as of this encounter (statuses as of 08/28/2023) Resolved Problems Problem Noted Date Diagnosed Date Resolved Date Hypertensive kidney disease with stage 3a chronic kidney disease 05/08/2021 05/29/2021 Hypertensive kidney disease with CKD stage III 12/31/2017 12/31/2017 Hypertensive kidney disease with CKD stage III 12/31/2017 05/29/2021 Kidney disease, chronic, sta ge III (GFR 30-59 ml/min) 11/24/2017 12/31/2017 Overview: Per CKD protocol #1 - Hypocalcemia 10/31/2013 09/30/2017 Other hyperparathyroidism 11/22/2012 Hyperparathyroidism 10/20/2012 10/01/19 18 Overview: ICD-10 update of inactive term Hypercalcemia 10/20/2012 12/31/2017 Osteopenia 10/20/2012 03/02/2013 Screening for thyroid disorder 10/20/2012 09/30/2017 Central retinal vein occlusion 05/02/2010 09/30/2017 Retinal edema 12/19/2009 07/11/2010 PURE HYPERCHOLESTEROLEM /2 04/2008 Overview: Per Lipid Taxonomy. documented as of this encounter (statuses as of 08/28/2023) Immunizations Name Administration Dates Next Due COVID-19 mRNA, LNP-s, No Pre serve, 2-Dose Series (Pfizer) 02/06/2021,06/30/2020,06/09/2020 Pneumococcal Conjugate Vacc, 13 Valent (Prevnar) 10/27/2014 Pneumococcal Polysaccharide PPV23 (Pneumovax) 10/05/2013,04/30/2007(Deferred: Patient Refused) RSV Vac., Bivalent, Perfusio n F, Pf,0.5 Ml (Abrysvo) 06/29/2023 Season Influenza, Quad, PF, Adjuvanted, 65+ Yrs, IM (FLUAD) 02/20/2020 Seasonal Influenza, PF, 6 M & above, IM , (FluLaval or Fluzone) 12/31/2017,02/18/2017 Seasonal Influenza, Quadriva lent Hd (Fluzone Hd) 12/23/2022,01/22/2021 Seasonal Influenza, Quadriva lent Hd, 65+ Yrs 03/25/2022 Seasonal Influenza, Quadriva lent, No Preserve, IM 02/24/2019,02/01/2016,01/29/2015 Seasonal Influenza, Split, I IV3, With Preserve, Inj 02/21/2014,01/11/2013,02/17/2012,03/12,01/01/2010,04/30/2007(Deferred: Patient Refused) TD, Preservative Free 05/03/2010 TDAP (age 10 and older)(Boostrix) 10/09/2020 Varicella Zoster Vaccine (Adult) 02/21/2014 documented as of this encounter Social History Tobacco Use Types Packs/Day Years Used Date Smoking Tobacco: Former Cigarettes Q uit: 04/13/1986 Smokeless Tobacco: Never Alcohol Use Standard Drinks/Week Comments No 0 (1 standard drink = 0.6 oz pur e alcohol) PHQ-2 Answer Date Recorded PHQ Adult Total Score 0 11/15/2021 Sex and Gender Information Value Date Recorded Sex Assigned at Female 09/29/2018 2:51 PM EDT Gender Identity Female 09/29/2018 2:51 PM EDT Sexual Orientation Straight 09/29/2018 2: 51 PM EDT Job Start Date Occupation Industry Not on file Not on file Not on file documented as of this encounter Plan of Treatment Upcoming Encounters Date Type Department Care Team (Late st Contact Info) Description 11/02/2023 2:30 PM EDT [address]iology, [address] [address] 01/26/2024 1:30 PM EDT Office Visit Cardiology, [facility] [address] [facility] [place] [address] Megan Villarreal CRNP [address] [place] [address] [place] [phone] 03/08/2024 1:20 PM EST Office Visit Family Practice [facility] [address] [facility] [place] [address] Toya Wu DO [address] [facility] [place] [address] Pending Results Name Type Priority Associated Diagnoses Date /Time COMPREHENSIVE METABOLIC PANEL Lab Routine Prediabetes Surgical hypoparathyroidism (HCC) Dyslipidemia, goal LDL below 130 Paroxysmal atrial tachycardia (HCC) HTN, goal below 140/90 Gastroesophageal reflux disease, unspecified whether esophagitis present Chronic renal failure, stage 3a (HCC) High risk for fracture due to osteoporosis by DEXA scan 08/28/2023 2:18 PM EDT TSH WITH FREE T4 IF INDICATED Lab Routine Prediabetes Surgical hypoparathyroidism (HCC) Dyslipidemia, goal LDL below 130 Paroxysmal atrial tachycardia (HCC) HTN, goal below 140/90 Gastroesophageal reflux disease, unspecified whether esophagitis present Chronic renal failure, stage 3a (HCC) High risk for fracture due to osteoporosis by DEXA scan 08/28/2023 2:18 PM EDT LIPID PANEL WITH DIRECT LDL IF TG IS HIGH Lab Routine Prediabetes Surgical hypoparathyroidism (HCC) Dyslipidemia, goal LDL below 130 Paroxysmal atrial tachycardia (HCC) HTN, goal below 140/90 Gastroesophageal reflux disease, unspecified whether esophagitis present Chronic renal failure, stage 3a (HCC) High risk for fracture due to osteoporosis by DEXA scan 08/28/2023 2:18 PM EDT PHOSPHORUS Lab Routine Prediabetes Surgical hypoparathyroidism (HCC) Dyslipidemia, goal LDL below 130 Paroxysmal atrial tachycardia (HCC) HTN, goal below 140/90 Gastroesophageal reflux disease, unspecified whether esophagitis present Chronic renal failure, stage 3a (HCC) High risk for fracture due to osteoporosis by DEXA scan 08/28/2023 2:18 PM EDT PTH Lab Routine Prediabetes Surgical hypoparathyroidism (HCC) Dyslipidemia, goal LDL below 130 Paroxysmal atrial tachycardia (HCC) HTN, goal below 140/90 Gastroesophageal reflux disease, unspecified whether esophagitis present Chronic renal failure, stage 3a (HCC) High risk for fracture due to osteoporosis by DEXA scan 08/28/2023 2:18 PM EDT VITAMIN B12 Lab Routine Prediabetes Surgical hypoparathyroidism (HCC) Dyslipidemia, goal LDL below 130 Paroxysmal atrial tachycardia (HCC) HTN, goal below 140/90 Gastroesophageal reflux disease, unspecified whether esophagitis present Chronic renal failure, stage 3a (HCC) High risk for fracture due to osteoporosis by DEXA scan 08/28/2023 2:18 PM EDT MAGNESIUM Lab Routine Prediabetes Surgical hypoparathyroidism (HCC) Dyslipidemia, goal LDL below 130 Paroxysmal atrial tachycardia (HCC) HTN, goal below 140/90 Gastroesophageal reflux disease, unspecified whether esophagitis present Chronic renal failure, stage 3a (HCC) High risk for fracture due to osteoporosis by DEXA scan 08/28/2023 2:18 PM EDT HEMOGLOBIN A1C Lab Routine Prediabetes 08/28/2023 2:18 PM EDT BNP, NT-PRO Lab Routine Lung crackles 08/28/2023 2:18 PM EDT Health Maintenance Due Date Last Done Comments Zoster Vaccines (2 of 3) 04/18/2014 02/21/2014 *BISPHONATE OR OTHER ACCEPTABLE MEDICATION NEEDED FOR OSTEOPOROSIS (REFER TO SMARTSET #1146) 03/26/2019 DXA Scan 10/24/2022 10/24/2020, 12/13, 11/06/2014, Additional history exists Albumin/Creatinine Ratio 11/15/2022 11/15/2021 COVID-19 Vaccine ( season) 2022 02/06/2021, 06/30/2020, 06/09/2020 GFR 08/26/2023 02/25/2023, 09/12, 08/07/2022, Additional history exists Depression Screening 02/26/2024 02/25/2023 HbA1c 02/26/2024 02/25/2023, 07/14, 11/23/2000 DTaP,Tdap,and Td Vaccines (2 - Td or Tdap) 10/09/2030 10/09/2020, 05/03/2010 Pneumococcal Vaccine: 65+ Years Completed 10/27/2014, 10/05/2013 Influenza Vaccine (FLU shot) Completed 03/2023, 03/25/2022, 01/22/2021, Additional history exists VITAMIN D LEVEL ONCE IN A LIFETIME-USE SMARTSET# [id number] Completed 02/25/2023, 08/07/2022, 02/19/2017, Additional history exists GARDASIL-HPV IMMUNIZATION SERIES Aged Out No longer eligible based on patient's age to complete this topic Hepatitis B Aged Out No longer eligi ble based on patient's age to complete this topic MENINGOCOCCAL (MENACTRA/MENVEO) Aged Out No longer eligible based on patient's age to complete this topic documented as of this encounter Medical Devices Not on filedocumented as of this encounter Procedures Procedure Name Priority Date/Time Associated Diagnosis Comments DIFFERENTIAL, AUTOMATED Routine 08/28/2023 2:18 PM EDT Prediabetes Surgical hypoparathyroidism (HCC) Dyslipidemia, goal LDL below 130 Paroxysmal atrial tachycardia (HCC) HTN, goal below 140/90 Gastroesophageal reflux disease, unspecified whether esophagitis present Chronic renal failure, stage 3a (HCC) High risk for fracture due to osteoporosis by DEXA scan CBC Routine 08/28/2023 2:18 PM EDT Prediabetes Surgical hypoparathyroidism (HCC) Dyslipidemia, goal LDL below 130 Paroxysmal atrial tachycardia (HCC) HTN, goal below 140/90 Gastroesophageal reflux disease, unspecified whether esophagitis present Chronic renal failure, stage 3a (HCC) High risk for fracture due to osteoporosis by DEXA scan CBC Routine 08/28/2023 2:18 PM EDT Prediabetes Surgical hypoparathyroidism (HCC) Dyslipidemia, goal LDL below 130 Paroxysmal atrial tachycardia (HCC) HTN, goal below 140/90 Gastroesophageal reflux disease, unspecified whether esophagitis present Chronic renal failure, stage 3a (HCC) High risk for fracture due to osteoporosis by DEXA scan documented in this encounter Results * DIFFERENTIAL, AUTOMATED (08/28/2023 2:18 PM EDT) WBC 7.26 4.00 - 10.80 K/uL 08/28/2023 2:26 PM EDT [facility] [place] [facility]10 Neutrophils % 52.3 40.0 - 75.0 % 08/28/2023 2:26 PM EDT [facility] [place] 57-10 Lymphocytes % 36.9 18.0 - 42.0 % 08/28/2023 2:26 PM EDT [facility] [place] 57-10 Monocytes % 6.3 1.0 - 11.0 % 08/28/2023 2:26 PM EDT [facility] [place] 57-10 Eosinophils % 3.9 0.0 - 6.0 % 08/28/2023 2:26 PM EDT [facility] [place] 57-10 Basophils % 0.6 0.0 - 2.0 % 08/28/2023 2:26 PM EDT [facility] [place] 57-10 Absolute Neutrophils 3.80 1.80 - 7.70 K/uL 08/28/2023 2:26 PM EDT [facility] [place] 57-10 Absolute Lymphocytes 2.68 1.00 - 4.80 K/ul 08/28/2023 2:26 PM EDT [facility] [place] 57-10 Absolute Monocytes 0.46 0.00 - 1.10 K/uL 08/28/2023 2:26 PM EDT [facility] [place] 57-10 Absolute Eosinophils 0.28 0.00 - 0.70 K/uL 08/28/2023 2:26 PM EDT [facility] [place] 57-10 Absolute Basophils 0.04 0.00 - 0.20 K/uL 08/28/2023 2:26 PM EDT LAB[facility]ATORY [facility] 57-10 Blood Venous blood specimen / Unknown Venipuncture / Unknown 08/28/2023 2:18 PM EDT 08/28/2023 2:18 PM EDT Toya Wu DO LAB BLOOD ORDERABLE S LAB[facility]ORY [facility] 57[facility]10 [address] [place] [address] * (ABNORMAL) CBC (08/28/2023 2:18 PM EDT) WBC 7.26 4.00 - 10.80 K/uL 08/28/2023 2:26 PM EDT LAB[facility]ORY [facility] 57-10 RBC 4.84 3.85 - 5.15 M/uL 08/28/2023 2:26 PM EDT LAB[facility]ORY [facility] 57-10 HGB 14.8 12.0 - 15.3 g/dL 08/28/2023 2:26 PM EDT LAB[facility]ORY [facility] 57-10 HCT 45.9(H) 36.0 - 45.2 % 08/28/2023 2:26 PM EDT LAB[facility]ATORY [facility] 57-10 MCV 94.8 81.5 - 97.5 fL 08/28/2023 2:26 PM EDT [facility] MCH 30.6 27.0 - 34.0 pg 08/28/2023 2:26 PM EDT LAB[facility]ORY [facility] 57-10 MCHC 32.2 32.0 - 36.0 g/dL 08/28/2023 2:26 PM EDT [facility] RDW 13.6 11.5 - 15.5 % 08/28/2023 2:26 PM EDT LAB[facility]ORY [facility] 57-10 PLT 237 140 - 400 K/uL 08/28/2023 2:26 PM EDT [facility] MPV 10.1 6.6 - 11.1 fL 08/28/2023 2:26 PM EDT [facility]10 Blood Venous blood specimen / Unknown Venipuncture / Unknown 08/28/2023 2:18 PM EDT 08/28/2023 2:18 PM EDT Toya Wu DO LAB BLOOD ORDERABLE S [facility] [place] [address] documented in this encounter Visit Diagnoses Diagnosis Prediabetes Other abnormal glucose Surgical hypoparathyroidism (HCC) Hypoparathyroidism Dyslipidemia, goal LDL below 130 Other and unspecified hyperlipidemia Paroxysmal atrial tachycardia (HCC) Paroxysmal supraventricular tachycardia HTN, goal below 140/90 Unspecified essential hypertension Gastroesophageal reflux disease, unspecified whether esophagitis present Chronic renal failure, stage 3a (HCC) High risk for fracture due to osteoporosis by DEXA scan Osteoporosis, unspecified Lung crackles Abnormal chest sounds documented in this encounter Advance Directives Latest Code Status on File Code Status Date Activated Date Inactivated Comments Full Code 09/26/2013 8:05 PM 09/27/2013 4:20 PM This order reflects the patients wishes and were consensually agreed upon. Question Answer Comments Discussion of Advance Directives occurred with: Not Discussed Code Status History Code Status Date Activated Date Inactivated Comments Full Code 09/26/2013 3:27 PM 09/26/2013 8:05 PM Question Answer Comments Discussion of Advance Direct rai occurred with: Not Discussed Does the patient have a Living Will? No Does the patient have Health Care Power of Water Jet Operator? No Care Teams Development Vice President Relationship Specialty Start Date End Date Toya Wu DO [address] [place] [address] PCP - General Family Medicine 02/25/23 documented as of this encounter
--- OUTSIDE RECORDS SUMMARY | 2023-09-26 00:50 | External Medical Summary ---
Author Name Unknown Address Unknown Organization [id number]:[facility]ATORY [facility] [place] [address] [place] [address] Laboratory Report Ordering Provider Test Date Status CATALINAANILA 08/28/2023 14:18:02 Final Observation Date Value Abnormality Reference (Units ) Status TSH 08/28/2023 14:18:02 1.19 0.27-4.20 (uIU/mL) Final Performing Location LAB[facility]ATORY [facility] - [address] [place] [address]
--- OUTSIDE RECORDS SUMMARY | 2023-09-26 00:50 | External Medical Summary ---
Author Name Unknown Address Unknown Organization [id number]:[facility] [place] [address] [place] [address] Laboratory Report Ordering Provider Test Date Status ANILA ARNOLD 08/28/2023 14:18:02 Final Observation Date Value Abnormality Reference (Units ) Status Parathyrin.intact [Mass/volume] in Serum or Plasma 08/28/2023 14:18:02 4 Below low normal 15-65 (pg/mL) Final Performing Location LAB[facility] [place] [address] [place] [address]
--- OUTSIDE RECORDS SUMMARY | 2023-09-26 00:50 | External Medical Summary ---
Author Name Unknown Address Unknown Organization [id number]:[facility]ATORY [facility] [place] - [address] [place] [address] Laboratory Report Ordering Provider Test Date Status ANILA ARNOLD 08/28/2023 14:18:02 Final Observation Date Value Abnormality Reference (Units ) Status Vitamin B12 08/28/2023 14:18:02 971 [id number] (pg/mL) Final Performing Location [facility] - [address] [place] [address]
--- OUTSIDE RECORDS SUMMARY | 2023-09-26 00:50 | External Medical Summary ---
Author Name Unknown Address Unknown Organization [id number]:[facility] - [address] [place] [address] Laboratory Report Ordering Provider Test Date Status ANILA ARNOLD 08/28/2023 14:18:02 Final Observation Date Value Abnormality Reference (Units ) Status BUN 08/28/2023 14:18:02 34 Above high normal 6-20 (mg/dL) Final Creatinine 08/28/2023 14:18:02 1.0 0.5-1.0 (mg/dL) Final Glomerular filtration rate/1.73 sq M.predicted [Volume Rate/Area] in Serum, Plasma or Blood by Creatinine-based formula (CKD-EPI) 08/28/2023 14:18:02 57 Below low normal >=60 (mL/min) Final eGFR is calculated based on the CKD-EPI 2020 equation Sodium 08/28/2023 14:18:02 144 135-146 (m mol/L) Final Potassium 08/28/2023 14:18:02 3.6 3.5-5.1 (m mol/L) Final Cl 08/28/2023 14:18:02 102 98-107 (mm ol/L) Final CO2 08/28/2023 14:18:02 30 22-32 (mmo l/L) Final Anion gap 08/28/2023 14:18:02 12 7-15 (mmol /L) Final Glucose 08/28/2023 14:18:02 101 70-120 (mg /dL) Final Albumin 08/28/2023 14:18:02 4.2 3.8-5.0 (g /dL) Final AST (Aspartate aminotransferase) 08/28/2023 14:18:02 23 10-35 (U/L) Final Alk Phos 08/28/2023 14:18:02 61 35-130 (U/ L) Final Bilirubin, Total 08/28/2023 14:18:02 0.4 <=1 .2 (mg/dL) Final Calcium 08/28/2023 14:18:02 9.5 8.4-10.2 ( mg/dL) Final Protein 08/28/2023 14:18:02 6.7 6.0-8.3 (g /dL) Final ALT (Alanine aminotransferase) 08/28/2023 14:18:02 17 10-35 (U/L) Final Performing Location LABORATORY [place] 57-1 0 - [address] [facility] [address]
--- OUTSIDE RECORDS SUMMARY | 2023-09-26 00:50 | External Medical Summary ---
Author Name Unknown Address Unknown Organization [id number]:[facility] [place] - [address] [facility] [place] [address] Laboratory Report Ordering Provider Test Date Status ANILA ARNOLD 08/28/2023 14:18:02 Final Observation Date Value Abnormality Reference (Units ) Status Triglyceride 08/28/2023 14:18:02 143 <=174 ( mg/dL) Final Triglyceride Reference Range s (mg/dL):
<150 Acceptable
150-174 Borderline high
175-499 High
>=500 Very high Cholesterol 08/28/2023 14:18:02 147 <200 (mg /dL) Final Total Cholesterol Reference Ranges (mg/dL):
<200 Desirable
200-239 Borderline high
>=240 High HDL 08/28/2023 14:18:02 50 >49 (mg/dL ) Final HDL Cholesterol Reference Ra nges (mg/dL):
>=60 High (Desirable)
<50 Low (Undesirable) For Females
<40 Low (Undesirable) For Males NON-HDL CHOLESTEROL 08/28/2023 14:18:02 97 <=159 (mg/dL) Final Non-HDL Cholesterol Referenc e Range (mg/dL):
<100 Target level for high risk ASCVD patient
<130 Optimal for general population
130-159 Near optimal for general population
160-189 Borderline High
190-219 High
>=220 Very High LDL, (calculated) 08/28/2023 14:18:02 68 <= 129 (mg/dL) Final LDL Cholesterol Reference Ra nges (mg/dL):
<70 Target level for high risk ASCVD patient
<100 Optimal for general population
100-129 Near optimal for general population
130-159 Borderline high
160-189 High
>=190 Very high Performing Location LABORATORY [facility] [place] - [address] [facility] [address]
--- OUTSIDE RECORDS SUMMARY | 2023-09-26 00:50 | External Medical Summary ---
Author Name Unknown Address Unknown Organization K01:[facility]ORY [facility] - [address] [place] [address] Laboratory Report Ordering Provider Test Date Status ANILA ARNOLD 08/28/2023 14:18:02 Final Observation Date Value Abnormality Reference (Units ) Status Magnesium 08/28/2023 14:18:02 1.9 1.5-2.6 (m g/dL) Final Performing Location LAB[facility]ATORY [facility] - [address] [place] [address]
--- OUTSIDE RECORDS SUMMARY | 2023-09-26 00:50 | External Medical Summary ---
Author Name Unknown Address Unknown Organization K01:LABORATORY [facility] [place] - [address] [place] [address] Laboratory Report Ordering Provider Test Date Status ANILA ARNOLD 08/28/2023 14:18:02 Final Observation Date Value Abnormality Reference (Units ) Status HbA1C 08/28/2023 14:18:02 6.3 Above high normal 4. 0-5.6 (%) Final The use of HbA1c to monitor glycemic status is based on normal hemoglobin and HbA composition. This test should not be used in patients with abnormal hemoglobin that affects the half life of the red blood cell or the in vivo glycation rates. Glucose, estimated average 08/28/2023 14:18:02 134 Above high normal <126 (mg/dL) Ole cullen Performing Location LABORATORY [facility] [place] - [address] [place] [address]
--- OUTSIDE RECORDS SUMMARY | 2023-09-26 00:50 | External Medical Summary ---
Author Name Unknown Address Unknown Organization [id number]:LABORATORY [place] 57-[address] - [address] [place] [address] Laboratory Report Ordering Provider Test Date Status ANILA ARNOLD 08/28/2023 14:18:02 Final Observation Date Value Abnormality Reference (Units ) Status SYNC LEUKOCYTES IN BLOOD BY AUTOMATED COUNT 08/28/2023 14:18:02 7.26 4.00-10.80 (K/uL) Final Segs 08/28/2023 14:18:02 52.3 40.0-75.0 (%) Final Lymphs % 08/28/2023 14:18:02 36.9 18.0-42.0 (%) Final Monos 08/28/2023 14:18:02 6.3 1.0-11.0 (%) Final Eosinophils 08/28/2023 14:18:02 3.9 0.0-6.0 (%) Final Basos 08/28/2023 14:18:02 0.6 0.0-2.0 (%) Final Absolute Segs 08/28/2023 14:18:02 3.80 1.80-7.70 (K/uL) Final Lymphs, absolute 08/28/2023 14:18:02 2.68 1.00-4.80 (K/ul) Final Monos, Abs 08/28/2023 14:18:02 0.46 0.00-1.10 (K/uL) Final Eos, Abs 08/28/2023 14:18:02 0.28 0.00-0.70 (K/uL) Final Basos, Abs 08/28/2023 14:18:02 0.04 0.00-0.20 (K/uL) Final Performing Location LABORATORY [place] 57-1 0 - [address] [place] [address]
--- OUTSIDE RECORDS SUMMARY | 2023-09-26 00:50 | External Medical Summary | Summary of Care ---
Author Name Unknown Organization [facility] Address [address] [place] [address] Phone [phone] Care Team Providers Care Logistics Planning Manager Name Role Phone Toya Coyle DO Primary Care Provider [phone] Reason for Visit * Reason Comments Follow Up Pt here for 6 month f/u apt, has no current issues Encounter Details Date Type Department Care Team (Latest Contact Info) Description 08/28/2023 1:20 PM EDT Office Visit Family Practice [facility] [address] [place] [address] Toya Coyle DO [address] [place] [address] HTN, goal below 140/90*; Prediabetes; Surgical hypoparathyroidism (HCC); Dyslipidemia, goal LDL below 130; Paroxysmal atrial tachycardia (HCC); Gastroesophageal reflux disease, unspecified whether esophagitis present; Chronic renal failure, stage 3a (HCC); High risk for fracture due to osteoporosis [...] - Hypocalcemia 10/31/2013 09/30/2017 Other hyperparathyroidism 11/22/2012 06 / Hyperparathyroidism 10/20/2012 10/01/19 Overview: ICD-10 update of inactive term Hypercalcemia 10/20/2012 12/31/2017 Osteopenia 10/20/2012 03/02/2013 Screening for thyroid disorder 10/20/2012 09/30/2017 Central retinal vein occlusion 05/02/2010 09/30/2017 Retinal edema 12/19/2009 07/11/2010 PURE HYPERCHOLESTEROLEM /04/2008 Overview: Per Lipid Taxonomy. documented as of [...] Cigarettes Q uit: 04/13/1986 Smokeless Tobacco: Never Tobacco Cessation:Counseling Given: Not Answered Alcohol Use Standard Drinks/Week Comments No 0 [...] on file documented as of this encounter Last Filed Vital Signs Vital Sign Reading Time Taken Comments Blood Pressure 100/60 08/28/2023 1:24 PM EDT Pulse 95 08/28/2023 1:24 PM EDT Temperature 36.5 C (97.7 F) 08/28/2023 1:24 PM ED T Respiratory Rate 16 08/28/2023 1:24 PM EDT Oxygen Saturation - - Inhaled Oxygen Concentration - - Weight - - Height 160 cm (5' 3") 08/28/2023 1:24 PM EDT Body Mass Index - - documented in this encounter Progress Notes * Toya Coyle, - 08/28/2023 1:28 PM EDT Subjective: Florencia Rivera is a 82 year old female. Chief Complaint Patient presents with Follow Up Pt here for 6 month f/u apt, has no current issues There are no exam notes on file for this visit. HPI: This is a 82 year old female with PMHx as below presents with check up Cardio - PTS, TBS, PAD, HTN, HL, avb - norvasc, bb, crestor, asa, indapamide Tizanidine - prn pain Gabapentin/cymbalta- neuropathy - falling all the time. Recent fall and hurt R foot. Saw neuro in 2018 - did not want to follow up again. Has done PT. Ppi - gerd Elevated calcium, vit D - taking D supplement, rocaltrol - surgical hypoparathyroidism (saw endo [id number] - did not follow up) Fasting labs ordered Dexa high 2020 - osteoporosis not on therapy has upcoming dexa Health Maintenance Due Topic Date Due Zoster Vaccines (2 of 3) 04/18/2014 *BISPHONATE OR OTHER ACCEPTABLE MEDICATION NEEDED FOR OSTEOPOROSIS (REFER TO SMARTSET #1146) Never done DXA Scan 10/24/2022 Albumin/Creatinine Ratio 11/15/2022 COVID-19 Vaccine ( season) 2022 GFR 08/26/2023 Patient Active Problem List Diagnosis Code IDIO PERIPH NEURPTHY NOS G60.9 HTN, goal below 140/90 I10 Esophageal reflux K21.9 CLASSICAL MIGRAINE WITHOU MENTION OF INTRACTABLE MIGRAINE G43.109 Dyslipidemia, goal LDL below 130 E78.5 Vitamin D deficiency E55.9 High risk for fracture due to osteoporosis by DEXA scan M81.0 Surgical hypoparathyroidism ([facility]) E89.2 H/O hyperparathyroidism Z86.39 PAD (peripheral artery disease) ([facility]) I73.9 Sensorineural hearing loss (SNHL) of both ears H90.3 Tinnitus of both ears H93.13 Polyneuropathy in other diseases classified elsewhere ([facility]) G63 Chronic renal failure, stage 3a ([facility]) N18.31 Moderate aortic regurgitation I35.1 First degree AV block I44.0 Paroxysmal atrial tachycardia ([facility]) I47.19 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 latanoprost (XALATAN) 0.005 % ophthalmic solution Instill 1 Drop into both eyes in the morning and 1 Drop before bedtime. Calcitriol 0.5 MCG Oral Capsule (Rocaltrol) TAKE 2 CAPSULES EVERY DAY IN THE MORNING 180 Capsule 3 Rosuvastatin Calcium 10 MG Oral Tablet (Crestor) Take 1 Tablet by mouth at bedtime. 90 Tablet 3 Omeprazole 20 MG Oral Capsule Delayed Release (PriLOSEC) TAKE 1 CAP TWICE DAILY 30 MINUTES BEFORE AMEAL. 180 Capsule 1 Indapamide 2.5 MG Oral Tablet (Lozol) TAKE 1 TABLET EVERY DAY 90 Tablet 1 DULoxetine HCl 60 MG Oral Capsule Delayed Release Particles (Cymbalta) TAKE 1 CAPSULE BY MOUTH DAILY (DO NOT CUT, CRUSH OR CHEW). 90 Capsule 0 amLODIPine Besylate 2.5 MG Oral Tablet (Norvasc) TAKE 1 TABLET EVERY MORNING 90 Tablet 0 tiZANidine HCl 2 MG Oral Capsule Take 1 Capsule by mouth 3 times a day as needed for Muscle spasms.30 Capsule 1 Metoprolol Tartrate 25 MG Oral Tablet (Lopressor) Take 1 Tablet by mouth in the morning and 1 Tablet before bedtime. 200 Tablet 3 Gabapentin 300 MG Oral Capsule (Neurontin) TAKE 2 CAPSULES BY MOUTH FOUR TIMES DAILY 800 Capsule 3 Vyzulta 0.024 % Ophthalmic Solution (Latanoprostene Bunod) instill 1 drop into both eyes daily at bedtime 7.5 mL 3 Indapamide 2.5 MG Oral Tablet (Lozol) Take 1 tablet by mouth daily 90 Tablet 0 Gabapentin 300 MG Oral Capsule (Neurontin) TAKE 2 CAPSULES BY MOUTH FOUR TIMES DAILY 32 Capsule 0 No current facility-administered medications for this visit. Past Medical History: Diagnosis Date Dyslipidemia, goal LDL below 160 Hypercholesterolemia Esophageal reflux GERD Hereditary and idiopathic peripheral neuropathy HTN, goal below 140/90 Migraine with aura Past Surgical History: Procedure Laterality Date COLORECTAL CANCER SCREEN; NOT AT RISK 10/20/2007 repeat in 10 years EGD, FLEXIBLE, DIAGNOSTIC 05/23/2022 normal bx / ESOPHAGOGASTRODUODENOSCOPY (EGD), FLEXIBLE, TRANSORAL, DIAGNOSTIC performed by Adrien Jordan MD at ENDOSCOPY [facility] EGD, FLEXIBLE, W/BIOPSY 10/20/2007 biopsies--consistent with acid reflux, negative for tracey's esophagus EXPLORE PARATHYROID GLANDS 09/26/2013 PARATHYROIDECTOMY performed by Brian Schaffer MD at [place] [facility] INJECTION OF EYE DRUG 12/27/2009 #1 Avastin OS, Dr. Drake INJECTION OF EYE DRUG 01/29/2010 #2 Avastin OS, Dr. Drake INJECTION OF EYE DRUG 02/26/2010 #3 Avastin OS, Dr. Drake INJECTION OF EYE DRUG 05/02/2010 #4 Avastin OS, Dr. Drake IOF-DEXA SCAN/BONE MINERAL AX 09/11/1998 MISCELLANEOUS ORDER ([facility] ONLY) 06/13/2010 AVASTIN LEFT EYE CONSENT SIGNED, Dr. Drake REMOVAL OF APPENDIX Appendectomy REMOVE GALLBLADDER Cholecystectomy REMOVE LUMBAR SPINE LAMINA, 3+ SEGS 04/13/1984 Lumbar Disk Excision REMOVE PILONIDAL CYST, COMPLEX N/A 06/07/2021 EXCISION OF PILONIDAL CYST SINUS COMPLICATED performed by Grover Armenta MD at OR [facility] UPPER GI ENDOSCOPY/EXAM VAGINAL DELIVERY ONLY times 4 Review of patient's allergies indicates: No Known Allergies Family History Problem Relation Age of Onset Cancer Father prostate Cancer Mother Uterine Other (Other) Daughter back problems No Known Problems Daughter No Known Problems Son No Known Problems Son Other (Other) Brother back problems Family Status Relation Status Fa Alive Mo Sis Alive Bro Alive Bro Alive Branden Alive Branden Alive Son Alive Son Alive Bro Alive Social History Socioeconomic History Marital status: Spouse name: Jose Number of children: 4 Years of education: 12 Highest education level: Not on file Occupational History Occupation: [employer] Comment: [employer] Tobacco Use Smoking status: Former Current packs/day: 0.00 Types: Cigarettes Quit date: 04/13/1986 Years since quittin.4 Smokeless tobacco: Never Vaping Use Vaping Use: Never used Substance and Sexual Activity Alcohol use: No Drug use: No Sexual activity: Never Other Topics Concern Service No Blood Transfusions No Caffeine Concern No Occupational Exposure No Hobby Hazards No Sleep Concern No Stress Concern No Weight Concern No Special Diet No Back Care No Exercise No Bike Helmet No Seat Belt Yes Self-Exams Yes Social History Narrative Not on file Social Determinants of Health Financial Resource Strain: Not on file Food Insecurity: No Food Insecurity (02/25/2023) Hunger Vital Sign Worried About Running Out of Food in the Last Year: Never true Ran Out of Food in the Last Year: Never true Transportation Needs: Not on file Physical Activity: Not on file Stress: Not on file Social Connections: Not on file Intimate Partner Violence: Not on file Housing Stability: Not on file Review of Systems: As per HPI all other ROS negative. Wt Readings from Last 3 Encounters: 07/24/23 66.4 kg (146 lb 6.4 oz) 05/05/23 68 kg (150 lb) 02/25/23 68 kg (150 lb) Results for orders placed or performed in visit on 02/26/23 HEMOGLOBIN A1C Result Value Ref Range Hemoglobin A1C 6.2 (H) 4.0 - 5.6 % Estimated Average Glucose 131 (H) <126 mg/dL OBJECTIVE: Physical Exam: BP 100/60 | Pulse 95 | Temp 36.5 C (97.7 F) (Tympanic) | Resp 16 | Ht 1.6 m (5' 3") | BMI 25.93kg/m | BSA 1.72 m General: alert, healthy, and no distress Head: Normocephalic, No masses, lesions, tenderness or abnormalities Heart: regular rate & rhythm, no murmur, and no gallops Lungs: scattered rales bilaterally Abdomen: abdomen soft, non-tender, normal bowel sounds, and no masses or organomegaly Extremities: no joint deformities, effusion, or inflammation HTN, goal below 140/90 (Primary) - CBC WITH WBC DIFFERENTIAL; Future; Expected date: 08/28/2023 - COMPREHENSIVE METABOLIC PANEL; Future; Expected date: 08/28/2023 - TSH WITH FREE T4 IF INDICATED; Future; Expected date: 08/28/2023 - LIPID PANEL WITH DIRECT LDL IF TG IS HIGH; Future; Expected date: 08/28/2023 - PHOSPHORUS; Future; Expected date: 08/28/2023 - PTH; Future; Expected date: 08/28/2023 - PROTEIN/ CREATININE RATIO, URINE; Future; Expected date: 08/28/2023 - VITAMIN B12; Future; Expected date: 08/28/2023 - MAGNESIUM; Future; Expected date: 08/28/2023 Prediabetes - CBC WITH WBC DIFFERENTIAL; Future; Expected date: 08/28/2023 - COMPREHENSIVE METABOLIC PANEL; Future; Expected date: 08/28/2023 - TSH WITH FREE T4 IF INDICATED; Future; Expected date: 08/28/2023 - LIPID PANEL WITH DIRECT LDL IF TG IS HIGH; Future; Expected date: 08/28/2023 - PHOSPHORUS; Future; Expected date: 08/28/2023 - PTH; Future; Expected date: 08/28/2023 - PROTEIN/ CREATININE RATIO, URINE; Future; Expected date: 08/28/2023 - VITAMIN B12; Future; Expected date: 08/28/2023 - MAGNESIUM; Future; Expected date: 08/28/2023 - HEMOGLOBIN A1C; Future; Expected date: 08/28/2023 Surgical hypoparathyroidism (HCC) - CBC WITH WBC DIFFERENTIAL; Future; Expected date: 08/28/2023 - COMPREHENSIVE METABOLIC PANEL; Future; Expected date: 08/28/2023 - TSH WITH FREE T4 IF INDICATED; Future; Expected date: 08/28/2023 - LIPID PANEL WITH DIRECT LDL IF TG IS HIGH; Future; Expected date: 08/28/2023 - PHOSPHORUS; Future; Expected date: 08/28/2023 - PTH; Future; Expected date: 08/28/2023 - PROTEIN/ CREATININE RATIO, URINE; Future; Expected date: 08/28/2023 - VITAMIN B12; Future; Expected date: 08/28/2023 - MAGNESIUM; Future; Expected date: 08/28/2023 Dyslipidemia, goal LDL below 130 - CBC WITH WBC DIFFERENTIAL; Future; Expected date: 08/28/2023 - COMPREHENSIVE METABOLIC PANEL; Future; Expected date: 08/28/2023 - TSH WITH FREE T4 IF INDICATED; Future; Expected date: 08/28/2023 - LIPID PANEL WITH DIRECT LDL IF TG IS HIGH; Future; Expected date: 08/28/2023 - PHOSPHORUS; Future; Expected date: 08/28/2023 - PTH; Future; Expected date: 08/28/2023 - PROTEIN/ CREATININE RATIO, URINE; Future; Expected date: 08/28/2023 - VITAMIN B12; Future; Expected date: 08/28/2023 - MAGNESIUM; Future; Expected date: 08/28/2023 Paroxysmal atrial tachycardia (HCC) - CBC WITH WBC DIFFERENTIAL; Future; Expected date: 08/28/2023 - COMPREHENSIVE METABOLIC PANEL; Future; Expected date: 08/28/2023 - TSH WITH FREE T4 IF INDICATED; Future; Expected date: 08/28/2023 - LIPID PANEL WITH DIRECT LDL IF TG IS HIGH; Future; Expected date: 08/28/2023 - PHOSPHORUS; Future; Expected date: 08/28/2023 - PTH; Future; Expected date: 08/28/2023 - PROTEIN/ CREATININE RATIO, URINE; Future; Expected date: 08/28/2023 - VITAMIN B12; Future; Expected date: 08/28/2023 - MAGNESIUM; Future; Expected date: 08/28/2023 Gastroesophageal reflux disease, unspecified whether esophagitis present - CBC WITH WBC DIFFERENTIAL; Future; Expected date: 08/28/2023 - COMPREHENSIVE METABOLIC PANEL; Future; Expected date: 08/28/2023 - TSH WITH FREE T4 IF INDICATED; Future; Expected date: 08/28/2023 - LIPID PANEL WITH DIRECT LDL IF TG IS HIGH; Future; Expected date: 08/28/2023 - PHOSPHORUS; Future; Expected date: 08/28/2023 - PTH; Future; Expected date: 08/28/2023 - PROTEIN/ CREATININE RATIO, URINE; Future; Expected date: 08/28/2023 - VITAMIN B12; Future; Expected date: 08/28/2023 - MAGNESIUM; Future; Expected date: 08/28/2023 Chronic renal failure, stage 3a (HCC) - CBC WITH WBC DIFFERENTIAL; Future; Expected date: 08/28/2023 - COMPREHENSIVE METABOLIC PANEL; Future; Expected date: 08/28/2023 - TSH WITH FREE T4 IF INDICATED; Future; Expected date: 08/28/2023 - LIPID PANEL WITH DIRECT LDL IF TG IS HIGH; Future; Expected date: 08/28/2023 - PHOSPHORUS; Future; Expected date: 08/28/2023 - PTH; Future; Expected date: 08/28/2023 - PROTEIN/ CREATININE RATIO, URINE; Future; Expected date: 08/28/2023 - VITAMIN B12; Future; Expected date: 08/28/2023 - MAGNESIUM; Future; Expected date: 08/28/2023 High risk for fracture due to osteoporosis by DEXA scan - CBC WITH WBC DIFFERENTIAL; Future; Expected date: 08/28/2023 - COMPREHENSIVE METABOLIC PANEL; Future; Expected date: 08/28/2023 - TSH WITH FREE T4 IF INDICATED; Future; Expected date: 08/28/2023 - LIPID PANEL WITH DIRECT LDL IF TG IS HIGH; Future; Expected date: 08/28/2023 - PHOSPHORUS; Future; Expected date: 08/28/2023 - PTH; Future; Expected date: 08/28/2023 - PROTEIN/ CREATININE RATIO, URINE; Future; Expected date: 08/28/2023 - VITAMIN B12; Future; Expected date: 08/28/2023 - MAGNESIUM; Future; Expected date: 08/28/2023 Lung crackles - XR CHEST 2 VIEWS - BNP, NT-PRO; Future; Expected date: 08/28/2023 Follow Up: Return in about 6 months (around 02/28/2024), or if symptoms worsen or fail to improve. Toya Coyle DO documented in this encounter Plan of Treatment Upcoming Encounters Date Type Department Care Team (Late st Contact Info) Description 11/02/2023 2:30 PM EDT Imaging Radiology, [place] [address] [facility] [place] [address] 01/26/2024 1:30 PM EDT Office Visit Cardiology, [facility] [address] [place] [address] Megan Villarreal CRNP [address] [place] [address] 03/08/2024 1:20 PM EST Office Visit Family Practice [facility] [address] [place] [id number] Toya Coyle DO [address] [facility] [place] [address] Pending Results Name Type Priority Associated Diagnoses Date /Time XR CHEST 2 VIEWS Medical Imaging Routine Lung crackles 08/28/2023 1:48 PM EDT Scheduled Orders Name Type Priority Associated Diagnoses Orde r Schedule CBC WITH WBC DIFFERENTIAL Lab Routine Prediabetes Surgical hypoparathyroidism (HCC) Dyslipidemia, goal LDL below 130 Paroxysmal atrial tachycardia (HCC) HTN, goal below 140/90 Gastroesophageal reflux disease, unspecified whether esophagitis present Chronic renal failure, stage 3a (HCC) High risk for fracture due to osteoporosis by DEXA scan Expected: 08/28/2023 (Approximate), Expires: 08/27/2024 COMPREHENSIVE METABOLIC PANEL Lab Routine Prediabetes Surgical hypoparathyroidism (HCC) Dyslipidemia, goal LDL below 130 Paroxysmal atrial tachycardia (HCC) HTN, goal below 140/90 Gastroesophageal reflux disease, unspecified whether esophagitis present Chronic renal failure, stage 3a (HCC) High risk for fracture due to osteoporosis by DEXA scan Expected: 08/28/2023 (Approximate), Expires: 08/27/2024 TSH WITH FREE T4 IF INDICATED Lab Routine Prediabetes Surgical hypoparathyroidism (HCC) Dyslipidemia, goal LDL below 130 Paroxysmal atrial tachycardia (HCC) HTN, goal below 140/90 Gastroesophageal reflux disease, unspecified whether esophagitis present Chronic renal failure, stage 3a (HCC) High risk for fracture due to osteoporosis by DEXA scan Expected: 08/28/2023 (Approximate), Expires: 08/27/2024 LIPID PANEL WITH DIRECT LDL IF TG IS HIGH Lab Routine Prediabetes Surgical hypoparathyroidism (HCC) Dyslipidemia, goal LDL below 130 Paroxysmal atrial tachycardia (HCC) HTN, goal below 140/90 Gastroesophageal reflux disease, unspecified whether esophagitis present Chronic renal failure, stage 3a (HCC) High risk for fracture due to osteoporosis by DEXA scan Expected: 08/28/2023 (Approximate), Expires: 08/27/2024 PHOSPHORUS Lab Routine Prediabetes Surgical hypoparathyroidism (HCC) Dyslipidemia, goal LDL below 130 Paroxysmal atrial tachycardia (HCC) HTN, goal below 140/90 Gastroesophageal reflux disease, unspecified whether esophagitis present Chronic renal failure, stage 3a (HCC) High risk for fracture due to osteoporosis by DEXA scan Expected: 08/28/2023 (Approximate), Expires: 09/27/2024 PTH Lab Routine Prediabetes Surgical hypoparathyroidism (HCC) Dyslipidemia, goal LDL below 130 Paroxysmal atrial tachycardia (HCC) HTN, goal below 140/90 Gastroesophageal reflux disease, unspecified whether esophagitis present Chronic renal failure, stage 3a (HCC) High risk for fracture due to osteoporosis by DEXA scan Expected: 08/28/2023 (Approximate), Expires: 08/27/2024 PROTEIN/ CREATININE RATIO, URINE Lab Routine Prediabetes Surgical hypoparathyroidism (HCC) Dyslipidemia, goal LDL below 130 Paroxysmal atrial tachycardia (HCC) HTN, goal below 140/90 Gastroesophageal reflux disease, unspecified whether esophagitis present Chronic renal failure, stage 3a (HCC) High risk for fracture due to osteoporosis by DEXA scan Expected: 08/28/2023 (Approximate), Expires: 08/27/2024 VITAMIN B12 Lab Routine Prediabetes Surgical hypoparathyroidism (HCC) Dyslipidemia, goal LDL below 130 Paroxysmal atrial tachycardia (HCC) HTN, goal below 140/90 Gastroesophageal reflux disease, unspecified whether esophagitis present Chronic renal failure, stage 3a (HCC) High risk for fracture due to osteoporosis by DEXA scan Expected: 08/28/2023 (Approximate), Expires: 08/27/2024 MAGNESIUM Lab Routine Prediabetes Surgical hypoparathyroidism (HCC) Dyslipidemia, goal LDL below 130 Paroxysmal atrial tachycardia (HCC) HTN, goal below 140/90 Gastroesophageal reflux disease, unspecified whether esophagitis present Chronic renal failure, stage 3a (HCC) High risk for fracture due to osteoporosis by DEXA scan Expected: 08/28/2023 (Approximate), Expires: 08/27/2024 HEMOGLOBIN A1C Lab Routine Prediabetes Expected: 08/28/2023 (Approximate), Expires: 08/27/2024 BNP, NT-PRO Lab Routine Lung crackles Expected: 08/28/2023 (Approximate), Expires: 08/27/2024 Health Maintenance Due Date Last Done Comments [...] D LEVEL ONCE IN A LIFETIME-USE SMARTSET# [id number] Completed 02/25/2023, 08/07/2022, 02/19/2017, Additional history exists [...] Not on filedocumented as of this encounter Visit Diagnoses Diagnosis HTN, goal below 140/90- Primary Unspecified essential hypertension Prediabetes Other abnormal glucose Surgical hypoparathyroidism (HCC) Hypoparathyroidism Dyslipidemia, goal LDL below 130 Other and unspecified hyperlipidemia Paroxysmal atrial tachycardia (HCC) Paroxysmal supraventricular tachycardia Gastroesophageal reflux disease, unspecified whether esophagitis present [...] the patient have Health Care Power of [place]? No Care Teams Logistics Planning Manager Relationship Specialty Start Date End Date Toya Coyle DO [address] [place] [address] PCP - General Family Medicine 02/25/23 documented as of this encounter
--- OUTSIDE RECORDS SUMMARY | 2023-09-26 00:50 | External Medical Summary ---
Author Name Unknown Address Unknown Organization K01:[facility] [address] [place] [address] Laboratory Report Ordering Provider Test Date Status ANILA ARNOLD 08/28/2023 14:18:02 Final Observation Date Value Abnormality Reference (Units ) Status Phosphate 08/28/2023 14:18:02 3.7 2.5-4.8 (m g/dL) Final Performing Location [facility] - [address] [place] [address]
--- OUTSIDE RECORDS SUMMARY | 2023-09-26 00:50 | External Medical Summary ---
Author Name Unknown Address Unknown Organization K01:[facility] - [address] [place] [address] Laboratory Report Ordering Provider Test Date Status ANILA ARNOLD 08/28/2023 14:18:02 Final Exclude Heart Failure: <300 pg/mL
Diagnose Heart Failure:
Age <50 yr: >450 pg/mL
50-75 yr: >900 pg/mL
>75 yr: >1800 pg/mL
GFR is 30-59 mL/min: >1200 pg/mL or Age- adjusted values
GFR <30 mL/min: do not use, not reliable

Prognostic threshold: 1000 pg/mL Observation Date Value Abnormality Reference (Units ) Status BNP, Pro-hormone 08/28/2023 14:18:02 153 <30 0 (pg/mL) Final Performing Location LAB[facility]ATORY [facility] - [address] [place] [address]
--- OUTSIDE RECORDS SUMMARY | 2023-09-26 00:51 | External Medical Summary | Summary of Care ---
Author Name Unknown Organization [facility] Address [address] [place] [address] Phone [phone] Care Team Providers Care Twisting Press Operator Name Role Phone Toya Wu DO Primary Care Provider [phone] Reason for Visit * Reason Onset Date Comments Scheduling 07/08/2023 HST Encounter Details Date Type Department Care Team (Late st Contact Info) Description 07/08/2023 Telephone Sleep Lab, [facility] [address] [place] [address] [facility], Sleep Med Home Study [address] [place] [address] Scheduling (HST) Allergies No known active allergiesdocumented as of this encounter (statuses as of 07/09/2023) Medications Medication Sig Dispensed Refills Start Date [...] at bedtime. 90 Tablet 3 05/21/2022 Active Gabapentin 300 MG Oral Capsule (Neurontin)Indications :Hereditary and idiopathic peripheral neuropathy TAKE 2 CAPSULES FOUR TIMES DAILY 720 Capsule 1 08/14/2022 Active Omeprazole 20 MG Oral Capsule Delayed Release (PriLOSEC)Indications: Gastritis and gastroduodenitis TAKE 1 CAP TWICE DAILY 30 MINUTES BEFORE A MEAL. 180 Capsule 1 10/29/2022 Active Indapamide 2.5 MG Oral Tablet (Lozol) TAKE 1 TABLET EVERY DAY 90 Tablet 1 12/11/2022 Active DULoxetine HCl 60 MG Oral Capsule Delayed Release Particles (Cymbalta) TAKE 1 CAPSULE DAILY (DO NOT CUT, CRUSH OR CHEW). 90 Capsule 1 12/23/2022 Active amLODIPine Besylate 2.5 MG Oral Tablet (Norvasc) TAKE 1 TABLET EVERY MORNING 90 Tablet 1 12/23/2022 Active tiZANidine HCl 2 MG Oral CapsuleIndications:Spa sm of muscle Take 1 Capsule by mouth 3 times a day as needed for Muscle spasms. 30 Capsule 1 12/23/2022 Active Metoprolol Tartrate 25 MG Oral Tablet (Lopressor)Indications :PAT (paroxysmal atrial tachycardia) (HCC) Take 1 Tablet by mouth in the morning and 1 Tablet before bedtime. 200 Tablet 3 05/05/2023 Active documented as of this encounter (statuses as of 07/09/2023) Active Problems Problem Noted Date Diagnosed Date [...] as of this encounter (statuses as of 07/09/2023) Resolved Problems Problem Noted Date Diagnosed Date [...] 09/30/2017 Other hyperparathyroidism 11/22/2012 Hyperparathyroidism 10/20/2012 10/01/19 Overview: ICD-10 update of inactive term Hypercalcemia 10/20/2012 12/31/2017 Osteopenia 10/20/2012 03/02/2013 Screening for thyroid disorder 10/20/2012 09/30/2017 Central retinal vein occlusion 05/02/2010 09/30/2017 Retinal edema 12/19/2009 07/11/2010 PURE HYPERCHOLESTEROLEM 03/14 Overview: Per Lipid Taxonomy. documented as of this encounter (statuses as of 07/09/2023) Immunizations Name Administration Dates Next Due COVID-19 mRNA, LNP-s, No Pre serve, 2-Dose Series ([employer]) 02/06/2021,06/30/2020,06/09/2020 Pneumococcal Conjugate Vacc, 13 Valent (Prevnar) [...] on file documented as of this encounter Miscellaneous Notes * Telephone Encounter - Akua Trimble OSA - 07/09/2023 9:51 AM EDT Contacted patient to scheduled Home sleep study. Patient wanted me to reach out to provider to see if she has to do home sleep testing done and also what it was for. Please reach out to patient. Thank you! * Telephone Encounter - Ankita Bernabe OSA - 07/08/2023 3:18 PM EDT Akua, Patient is from [place]. Can you assist with scheduling her? Thanks! * Telephone Encounter - Kenya Diaz OSA - 07/08/2023 8:41 AM EDT Order in [facility] from Megan Villarrela CRNP for HST. Ins auth is not required. Head Mva Reactor Operator approval is not required. Forwarded for review. Thank you. documented in this encounter Plan of Treatment Upcoming Encounters Date Type Department Care Team (Late st Contact Info) Description 07/24/2023 2:00 PM EDT Office Visit Cardiology, [facility] [address] [place] [address] Megan Villarreal CRNP [address] [facility] [place] [address] 08/28/2023 1:20 PM EDT Office Visit [facility] [address] [place] [address] Toya Wu DO [address] [place] [address] 11/02/2023 2:30 PM EDT Imaging Radiology, [facility] [address] [facility] [place] [address] 01/05/2024 1:00 PM EDT Office Visit [facility] [address] [facility] [address] Hernan Fernández III, MD [address] [facility] [place] [address] Health Maintenance Due Date Last Done Comments [...] D LEVEL ONCE IN A LIFETIME-USE SMARTSET# [id number] Completed 02/25/2023, 08/07/2022, 02/19/2017, Additional history exists [...] Not on filedocumented as of this encounter Advance Directives Latest Code Status [...] the patient have Health Care Power of Push Bench Operator Helper? No Care Teams Twisting Press Operator Relationship Specialty Start Date End Date Toya Wu DO [address] [place] [address] PCP - General Family Medicine 02/25/23 documented as of this encounter
--- OUTSIDE RECORDS SUMMARY | 2023-09-26 00:51 | External Medical Summary | Summary of Care ---
Author Name Unknown Organization [facility] Address [address] [place] [address] Phone [phone] Care Team Providers Care Financial Planning Adviser Name Role Phone Toya Wu DO Primary Care Provider [phone] Reason for Visit * Reason Onset Date Comments Scheduling 07/08/2023 HST Encounter Details Date Type Department Care Team (Late st Contact Info) Description 07/08/2023 Telephone Sleep Lab, [facility] [address] [place] [address] [facility], Sleep Med Home Study [address] [place] [address] Scheduling (HST) Allergies No known active allergiesdocumented as of this encounter (statuses as of 07/10/2023) Medications Medication Sig Dispensed Refills Start Date [...] as of this encounter (statuses as of 07/10/2023) Active Problems Problem Noted Date Diagnosed Date [...] as of this encounter (statuses as of 07/10/2023) Resolved Problems Problem Noted Date Diagnosed Date [...] as of this encounter (statuses as of 07/10/2023) Immunizations Name Administration Dates Next Due COVID-19 mRNA, LNP-s, No Pre serve, 2-Dose Series ([employer]) 02/06/2021,06/30/2020,06/09/2020 Pneumococcal Conjugate Vacc, 13 Valent (Prevnar) [...] encounter Miscellaneous Notes * Telephone Encounter - Michael Kessler RN - 07/10/2023 12:31 PM EDT Called and left message for the patient to call the clinic in regards to her question about the sleep study. * Telephone Encounter - Megan Villarreal CRNP - 07/09/2023 10:51 AM EDT We did review this some with her in the office during her prior office visit. Please let the patient know that the home sleep study was to further evaluate her for possible obstructive sleep apnea which can cause low heart rate episodes at night which were seen on the monitor she wore. Thank You MATTHEW Jain * Telephone Encounter - Akua Trimble OSA [...] 3:18 PM EDT Akua, Patient is from [place]. Can you assist with scheduling her? Thanks! * Telephone Encounter - Kenya Diaz OSA - 07/08/2023 8:41 AM EDT Order in [facility] from Megan Villarreal CRNP for HST. Ins auth is not required. Scientist Propagator approval is not required. Forwarded for review. Thank you. documented in this encounter Plan of Treatment Upcoming Encounters Date Type Department Care Team (Late st Contact Info) Description 07/24/2023 2:00 PM EDT Office Visit Cardiology, [facility] [address] [facility] [place] [address] Megan Villarreal CRNP [address] [facility] [place] [address] 08/28/2023 1:20 PM EDT Office Visit [facility] 132 [facility] [place] [address] Toya Wu, 132 [facility] [place] [address] 11/02/2023 2:30 PM EDT Imaging Radiology, [address] [place] [address] 01/05/2024 1:00 PM EDT Office Visit [facility] [address] [facility] [place] [address] Hernan Fernández III, MD [address] [facility] [place] [address] Health Maintenance Due Date Last Done Comments [...] D LEVEL ONCE IN A LIFETIME-USE SMARTSET# [id number] Completed 02/25/2023, 08/07/2022, 02/19/2017, Additional history exists [...] the patient have Health Care Power of Superintendent Measurement? No Care Teams Financial Planning Adviser Relationship Specialty Start Date End Date Toya Wu DO [address] [place] [address] PCP - General Family Medicine 02/25/23 documented as of this encounter
--- OUTSIDE RECORDS SUMMARY | 2023-09-26 00:51 | External Medical Summary | Summary of Care ---
Author Name Unknown Organization [facility] Address [address] [place] [address] Phone [phone] Care Team Providers Care Chief Engineer Production Name Role Phone Toya Wu DO Primary Care Provider [phone] Reason for Visit * Reason Onset Date Comments Appointment 07/08/2023 Encounter Details Date Type Department Care Team (Late st Contact Info) Description 07/08/2023 Telephone Care at Home [address] [place] [address] Services, Scheduling [address] [place] [address] Appointment Allergies No known active allergiesdocumented as of [...] mRNA, LNP-s, No Pre serve, 2-Dose Series ([employer]) 02/06/2021,06/30/2020,06/09/2020 Pneumococcal Conjugate Vacc, 13 Valent (Prevnar) [...] encounter Miscellaneous Notes * Telephone Encounter - Flash Sharpe OSA - 07/10/2023 10:03 AM EDT 2nd attempt, LMOM for pt to schedule AWV. MyG sent to pt * Telephone Encounter - Nancy Tellez OSA - 07/08/2023 1:14 PM EDT Care At Home Outreach Call attempt: 1st Call Call result: Call Unsuccessful - Declined enrollment Patient would like AWV scheduled for Awv at the clinic if possible, if not she will try the video with Care at home. Please assist with scheduling KIRSTEN Gant documented in this encounter Plan of Treatment Upcoming Encounters Date Type Department Care Team (Late st Contact Info) Description 07/24/2023 2:00 PM EDT Office Visit Cardiology, [facility] [place] [address] Megan Villarreal CRNP [address] [place] [address] [place] [address] 08/28/2023 1:20 PM EDT Office Visit Family Practice [facility] [place] [address] Toya Wu DO 132 [facility] [place] [address] 11/02/2023 2:30 PM EDT Imaging Radiology, [address] [place] [address] 01/05/2024 1:00 PM EDT Office Visit [facility] [address] [place] [address] Hernan Fernández III, MD [address] [place] [address] Health Maintenance Due Date Last Done Comments [...] D LEVEL ONCE IN A LIFETIME-USE SMARTSET# [id number] Completed 02/25/2023, 08/07/2022, 02/19/2017, Additional history exists [...] the patient have Health Care Power of Eligibility Consultant? No Care Teams Chief Engineer Production Relationship Specialty Start Date End Date Toya Wu DO [address] [place] [address] PCP - General Family Medicine 02/25/23 documented as of this encounter
--- OUTSIDE RECORDS SUMMARY | 2023-09-26 00:51 | External Medical Summary | Summary of Care ---
Author Name Unknown Organization [facility] Address [address] [place] [address] Phone [phone] Care Team Providers Care Research Phlebotomist Name Role Phone Toya Wu DO Primary Care Provider [phone] Reason for Visit * Reason Onset Date Comments Scheduling 07/08/2023 HST Encounter Details Date Type Department Care Team (Late st Contact Info) Description 07/08/2023 Telephone Sleep Lab, [address] [place] [address] [facility], Sleep Med Home Study [address] [place] [address] Scheduling (HST) Allergies No known [...] mRNA, LNP-s, No Pre serve, 2-Dose Series ([employer]) 02/06/2021,06/30/2020,06/09/2020 Pneumococcal Conjugate Vacc, 13 Valent (Prevnar) [...] encounter Miscellaneous Notes * Telephone Encounter - Megan Villarreal CRNP [...] 3:18 PM EDT Akua, Patient is from [place]. Can you assist with scheduling her? Thanks! * Telephone Encounter - Kenya Diaz OSA - 07/08/2023 8:41 AM EDT Order in [facility] from Megan Villarreal CRNP for HST. Ins auth is not required. Head Knitting Machine Fixer approval is not required. Forwarded for review. Thank you. documented in this encounter Plan of Treatment Upcoming Encounters Date Type Department Care Team (Late st Contact Info) Description 07/24/2023 2:00 PM EDT Office Visit Cardiology, [facility] 132 [facility] [place] [address] Megan Villarreal CRNP [address] [place] [address] [place] [address] 08/28/2023 1:20 PM EDT Office Visit [facility] [place] [address] [place] [address] Toya Wu DO [address] [place] [address] 11/02/2023 2:30 PM EDT Imaging Radiology, [facility] [address] [facility] [place] [address] 01/05/2024 1:00 PM EDT Office Visit [facility] 200 [facility] [place] [address] Hernan Fernández III, MD 200 [facility] [place] [address] Health Maintenance Due Date Last Done Comments [...] D LEVEL ONCE IN A LIFETIME-USE SMARTSET# [id number] Completed 02/25/2023, 08/07/2022, 02/19/2017, Additional history exists [...] the patient have Health Care Power of Safety Lead? No Care Teams Research Phlebotomist Relationship Specialty Start Date End Date Toya Wu DO [address] [place] [address] PCP - General Family Medicine 02/25/23 documented as of this encounter
--- OUTSIDE RECORDS SUMMARY | 2023-09-26 00:51 | External Medical Summary | Summary of Care ---
Author Name Unknown Organization [facility] Address [address] [place] [address] Phone [phone] Care Team Providers Care Fleet Service Manager Name Role Phone Toya Wu DO Primary Care Provider [phone] Reason for Visit * Reason Onset Date Comments Scheduling 07/08/2023 HST Encounter Details Date Type Department Care Team (Late st Contact Info) Description 07/08/2023 Telephone Sleep Lab, [facility] [address] [place] [address] [facility], Sleep Med Home Study [address] [place] [address] Scheduling (HST) Allergies No known active allergiesdocumented as of this encounter (statuses as of 07/08/2023) Medications Medication Sig Dispensed Refills Start Date [...] as of this encounter (statuses as of 07/08/2023) Active Problems Problem Noted Date Diagnosed Date [...] as of this encounter (statuses as of 07/08/2023) Resolved Problems Problem Noted Date Diagnosed Date [...] as of this encounter (statuses as of 07/08/2023) Immunizations Name Administration Dates Next Due COVID-19 mRNA, LNP-s, No Pre serve, 2-Dose Series ([employer]) 02/06/2021,06/30/2020,06/09/2020 Pneumococcal Conjugate Vacc, 13 Valent (Prevnar) [...] encounter Miscellaneous Notes * Telephone Encounter - Ankita Bernabe, KIRSTEN - 07/08/2023 3:18 PM EDT Akua, Patient is from [place]. Can you assist with scheduling her? Thanks! * Telephone Encounter - Kenya Diaz OSA - 07/08/2023 8:41 AM EDT Order in [facility] from Megan Villarreal CRNP for HST. Ins auth is not required. Dental Appliance Mechanic approval is not required. Forwarded for review. Thank you. documented in this encounter Plan of Treatment Upcoming Encounters Date Type Department Care Team (Late st Contact Info) Description 07/24/2023 2:00 PM EDT Office Visit Cardiology, [facility] [address] [place] [address] Megan Villarreal CRNP [address] [place] [address] [place] [address] 08/28/2023 1:20 PM EDT Office Visit [facility] [address] [place] [address] Toya Wu DO [address] [place] [address] 11/02/2023 2:30 PM EDT Imaging Radiology, [place] [address] [facility] [place] [address] 01/05/2024 1:00 PM EDT Office Visit [facility] [address] [place] [address] Hernan Fernández III, MD 200 [facility] [place] [address] Health Maintenance Due Date Last Done Comments [...] D LEVEL ONCE IN A LIFETIME-USE SMARTSET# [id number] Completed 02/25/2023, 08/07/2022, 02/19/2017, Additional history exists [...] the patient have Health Care Power of Digester Operator? No Care Teams Fleet Service Manager Relationship Specialty Start Date End Date Toya Wu DO [address] [place] [address] PCP - General Family Medicine 02/25/23 documented as of this encounter
--- OUTSIDE RECORDS SUMMARY | 2023-09-26 00:51 | External Medical Summary | Summary of Care ---
Author Name Unknown Organization [facility] Address [address] [place] [address] Phone [phone] Care Team Providers Care Bushel Worker Name Role Phone Toya Wu DO Primary Care Provider [phone] Reason for Visit * Reason Comments Follow Up Encounter Details Date Type Department Care Team (Late st Contact Info) Description 07/24/2023 2:00 PM EDT Office Visit Cardiology, [facility] [address] [place] [id number] Megan [facility]real CR[facility] [address] [facility] [place] [address] PAT (paroxysmal atrial tachycardia) (HCC)*; Tachy-bob syndrome (HCC); 1st degree AV block; HTN, goal below 140/90; Moderate aortic insufficiency; Stage 3a chronic kidney disease (HCC) Allergies No known active allergiesdocumented as of this encounter (statuses as of 08/04/2023) Medications Medication Sig Dispensed Refills Start Date [...] TIMES DAILY 32 Capsule 0 07/22/2023 Active documented as of this encounter (statuses as of 08/04/2023) Active Problems Problem Noted Date Diagnosed Date [...] as of this encounter (statuses as of 08/04/2023) Resolved Problems Problem Noted Date Diagnosed Date [...] as of this encounter (statuses as of 08/04/2023) Immunizations Name Administration Dates Next Due COVID-19 [...] 04/13/1986 Smokeless Tobacco: Never Tobacco Cessation:Counseling Given: No Alcohol Use Standard Drinks/Week Comments No 0 [...] Sign Reading Time Taken Comments Blood Pressure 144/64 07/24/2023 1:55 PM EDT Pulse 60 07/24/2023 1:55 PM EDT Temperature - - Respiratory Rate 16 07/24/2023 1:55 PM EDT Oxygen Saturation - - Inhaled Oxygen Concentration - - Weight 66.4 kg (146 lb 6.4 oz) 07/24/2023 1:55 P M EDT Height 160 cm (5' 3") 07/24/2023 1:55 PM EDT Body Mass Index 25.93 07/24/2023 1:55 PM EDT documented in this encounter Progress Notes * Deloris Cutler DO - 08/04/2023 12:07 PM EDT I have reviewed the advanced practitioner's documentation on the date of service referenced in note, and I agree with, and take responsibility for the plan of care. Pt seen in routine 3 month EP f/u due to PAT Overall ok no palpitations Some neuropathy that inhibits her mobility No change in cardiac medications today EP f/u 6 months Deloris Cutler DO Department of Cardiology [facility] [place] [address] documented in this encounter Nursing Notes * Manisha Alexis RN - 07/24/2023 1:56 PM EDT Examination Room: 12 Name: Florencia Rivera Date of : (1940). Reason for Visit: Follow up Interim Hospitalization(s): No Problems/Concerns: Tolerating increase in metoprolol. Denies dizziness or syncope. Chest Pain/SOB: Denies [facility] Discussed: Yes [facility] is a way you can talk to your provider online through e-mail. Would you like to sign up? I can activate it for you? ALREADY ACTIVE Patient was instructed to not get up on the exam table until directed and assisted by their provider; patient is to remain seated in the chair/ wheelchair/ exam table for fall prevention and safety reasons. Patient is aware to have assistance to step down off exam table with personnel. Patient voiced full comprehension of instructions. documented in this encounter Plan of Treatment Upcoming Encounters Date Type Department Care Team (Late st Contact Info) Description 08/28/2023 1:20 PM EDT Office Visit [facility] [address] [place] [address] Toya Wu DO [address] [place] [address] 11/02/2023 2:30 PM EDT Imaging Radiology, [address] [place] [address] 01/05/2024 1:00 PM EDT Office Visit [facility] [address] [facility] [place] [address] Hernan Fernández III, MD [address] [facility] [place] [address] 01/26/2024 1:30 PM EDT Office Visit Cardiology, [facility] [address] [place] [address] Megan Villarreal CRNP [address] [place] [address] Health Maintenance Due Date Last Done Comments [...] D LEVEL ONCE IN A LIFETIME-USE SMARTSET# [id number] Completed 02/25/2023, 08/07/2022, 02/19/2017, Additional history exists [...] as of this encounter Visit Diagnoses Diagnosis PAT (paroxysmal atrial tachycardia) (HCC)- Primary Paroxysmal supraventricular tachycardia Tachy-bob syndrome (HCC) Sinoatrial node dysfunction 1st degree AV block First degree atrioventricular block HTN, goal below 140/90 Unspecified essential hypertension Moderate aortic insufficiency Aortic valve disorders Stage 3a chronic kidney disease (HCC) documented in this encounter Advance Directives Latest [...] the patient have Health Care Power of Dental Associate? No Care Teams Bushel Worker Relationship Specialty Start Date End Date Toya Wu DO [address] [place] [address] PCP - General Family Medicine 02/25/23 documented as of this encounter
--- OUTSIDE RECORDS SUMMARY | 2023-09-26 00:51 | External Medical Summary | Summary of Care ---
Author Name Unknown Organization [facility] Address [address] [place] [facility] [facility] [place] [address] Phone [phone] Care Team Providers Care Dye Range Operator Cloth Name Role Phone Toya Wu DO Primary Care Provider [phone] Encounter Details Date Type Department Care Team (Late st Contact Info) Description 07/22/2023 Telephone Family Practice [facility] 200 [facility] [place] [address] Hernan Fernández III, MD [address] [place] [address] Allergies No known active allergiesdocumented as of this encounter (statuses as of 07/22/2023) Medications Medication Sig Dispensed Refills Start Date [...] mouth daily 90 Tablet 0 12/11/2022 Active documented as of this encounter (statuses as of 07/22/2023) Active Problems Problem Noted Date Diagnosed Date [...] as of this encounter (statuses as of 07/22/2023) Resolved Problems Problem Noted Date Diagnosed Date [...] as of this encounter (statuses as of 07/22/2023) Immunizations Name Administration Dates Next Due COVID-19 mRNA, LNP-s, No Pre serve, 2-Dose Series ([employer]) 02/06/2021,06/30/2020,06/09/2020 Pneumococcal Conjugate Vacc, 13 Valent (Prevnar) [...] encounter Miscellaneous Notes * Telephone Encounter - Jodie Alexander CPhT - 07/22/2023 2:03 PM EDT error documented in this encounter Plan of Treatment Upcoming Encounters Date Type Department Care Team (Late st Contact Info) Description 07/24/2023 2:00 PM EDT Office Visit Cardiology, [facility] [address] [place] [address] Megan Villarreal CRNP [address] [place] [address] 08/28/2023 1:20 PM EDT Office Visit Family Practice [facility] 132 [facility] [place] [address] Toya Wu DO [address] [place] [address] 11/02/2023 2:30 PM EDT Imaging Radiology, [address] [place] [address] 01/05/2024 1:00 PM EDT Office Visit [facility] 200 [facility] [place] [address] Hernan Fernández III, MD 200 [facility] [place] [address] Health Maintenance Due Date Last Done Comments [...] D LEVEL ONCE IN A LIFETIME-USE SMARTSET# [id number] Completed 02/25/2023, 08/07/2022, 02/19/2017, Additional history exists [...] the patient have Health Care Power of Director Global Sales? No Care Teams Dye Range Operator Cloth Relationship Specialty Start Date End Date Toya Wu DO [address] [place] [address] PCP - General Family Medicine 02/25/23 documented as of this encounter
--- OUTSIDE RECORDS SUMMARY | 2023-09-26 00:51 | External Medical Summary | Summary of Care ---
Author Name Unknown Organization [facility] Address [address] [place] [address] Phone [phone] Care Team Providers Care Crm Marketing Analyst Name Role Phone Toya Wu DO Primary Care Provider [phone] Reason for Visit * Reason Onset Date Comments Scheduling 07/08/2023 HST Encounter Details Date Type Department Care Team (Late st Contact Info) Description 07/08/2023 Telephone Sleep Lab, [facility] [address] [place] [address] [facility], Sleep Med Home Study [address] [place] [address] Scheduling (HST) Allergies No known [...] mRNA, LNP-s, No Pre serve, 2-Dose Series (Get10) 02/06/2021,06/30/2020,06/09/2020 Pneumococcal Conjugate Vacc, 13 Valent (Prevnar) [...] encounter Miscellaneous Notes * Telephone Encounter - Kenya Diaz, KIRSTEN - 07/08/2023 8:41 AM EDT Order in [facility] from Megan Villarreal CRNP for HST. Ins auth is not required. Outpatient Scheduler approval is not required. Forwarded for review. Thank you. documented in this encounter Plan of Treatment Upcoming Encounters Date Type Department Care Team (Late st Contact Info) Description 07/24/2023 2:00 PM EDT Office Visit Cardiology, [facility] [address] [facility] [place] [address] Megan Villarreal CRNP [address] [place] [address] 08/28/2023 1:20 PM EDT Office Visit Family [facility] [address] [facility] [place] [address] Toya Wu DO 132 [facility] [place] [address] 11/02/2023 2:30 PM EDT Imaging Radiology, [facility] [address] [facility] [place] [address] 01/05/2024 1:00 PM EDT Office Visit [facility] 200 [facility] [place] [address] Hernan Fernández III, MD 200 [facility] [place] [address] Health Maintenance Due Date Last Done Comments [...] D LEVEL ONCE IN A LIFETIME-USE SMARTSET# [id number] Completed 02/25/2023, 08/07/2022, 02/19/2017, Additional history exists [...] the patient have Health Care Power of Manufactured Buildings Supervisor? No Care Teams Crm Marketing Analyst Relationship Specialty Start Date End Date Toya Wu DO [address] [place] [address] PCP - General Family Medicine 02/25/23 documented as of this encounter
--- OUTSIDE RECORDS SUMMARY | 2023-09-26 00:51 | External Medical Summary ---
Author Name Unknown Address Unknown Organization [facility] [place] [address] Laboratory Report Ordering Provider Test Date Status ANILA ARNOLD 08/28/2023 14:18:02 Final Observation Date Value Abnormality Reference (Units ) Status WBC, Total 08/28/2023 14:18:02 7.26 4.00-10.8 0 (K/uL) Final RBC 08/28/2023 14:18:02 4.84 3.85-5.15 (M/uL) Final Hemoglobin 08/28/2023 14:18:02 14.8 12.0-15.3 (g/dL) Final HCT 08/28/2023 14:18:02 45.9 Above high normal 36 .0-45.2 (%) Final MCV 08/28/2023 14:18:02 94.8 81.5-97.5 (fL) Final MCH 08/28/2023 14:18:02 30.6 27.0-34.0 (pg) Final MCHC 08/28/2023 14:18:02 32.2 32.0-36.0 (g/dL) Final RDW 08/28/2023 14:18:02 13.6 11.5-15.5 (%) Final Platelets 08/28/2023 14:18:02 237 140-400 (K /uL) Final MPV 08/28/2023 14:18:02 10.1 6.6-11.1 ( fL) Final Performing Location [facility] [address] [place] [address]
--- OUTSIDE RECORDS SUMMARY | 2023-09-26 00:51 | External Medical Summary | Summary of Care ---
Author Name Unknown Organization [facility] Address [address] [place] [address] Phone [phone] Care Team Providers Care Human Resources Operations Specialist Name Role Phone Toya Wu DO Primary Care Provider [phone] Reason for Visit * Reason Onset Date Comments Appointment 07/08/2023 Encounter Details Date Type Department Care Team (Late st Contact Info) Description 07/08/2023 Telephone Care at Home [address] [place] [address] Services, Scheduling [address] [place] [address] Appointment Allergies No known active allergiesdocumented as [...] mRNA, LNP-s, No Pre serve, 2-Dose Series (Rewards[employer]) 02/06/2021,06/30/2020,06/09/2020 Pneumococcal Conjugate Vacc, 13 Valent (Prevnar) [...] encounter Miscellaneous Notes * Telephone Encounter - Nancy Tellez OSA [...] 07/24/2023 2:00 PM EDT Office Visit Cardiology, [facility] [address] [place] [address] Megan Villarreal CRNP [address] [place] [address] 08/28/2023 1:20 PM EDT Office Visit Family Practice [facility] 132 [facility] [place] [address] Toya Wu DO 132 [facility] [place] [address] 11/02/2023 2:30 PM EDT Imaging Radiology, [facility] [address] [facility] [place] [address] 01/05/2024 1:00 PM EDT Office Visit [facility] [address] [facility] [place] [address] Hernan Fernández III, MD [address] [facility] [place] [address] Health Maintenance Due Date Last Done Comments [...] D LEVEL ONCE IN A LIFETIME-USE SMARTSET# [id number] Completed 02/25/2023, 08/07/2022, 02/19/2017, Additional history exists [...] the patient have Health Care Power of [place]? No Care Teams Human Resources Operations Specialist Relationship Specialty Start Date End Date Toya Wu DO [address] [place] [address] PCP - General Family Medicine 02/25/23 documented as of this encounter
--- OUTSIDE RECORDS SUMMARY | 2023-09-26 00:51 | External Medical Summary | Summary of Care ---
Author Name Unknown Organization [facility] Address [address] [facility] [address] Phone [phone] Care Team Providers Care Water Softener Servicer Name Role Phone Toya Wu DO Primary Care Provider [phone] Reason for Visit * Reason Onset Date Comments Medication Refill 07/22/2023 Encounter Details Date Type Department Care Team (Late st Contact Info) Description 07/22/2023 Refill Family Practice [facility] [address] [place] [address] Caroline Campbell III, MD [address] [place] [address] IDIO PERIPH NEURPTHY NOS Allergies No known active allergiesdocumented as of this encounter (statuses as of 07/22/2023) Medications Medication Sig Dispensed Refills Start Date End Date Status MULTIVITAMIN/MULTIMIN ERAL PO TABS 1 TABLET DAILY 0 11/08/2004 Active ASPIRIN 81 MG PO CHEWIndications:Centr al retinal vein occlusion One pill by mouth [...] Omeprazole 20 MG Oral Capsule Delayed Release (PriLOSEC)Indications :Gastritis and gastroduodenitis TAKE 1 CAP TWICE DAILY [...] 12/23/2022 Active tiZANidine HCl 2 MG Oral CapsuleIndications:Sp asm of muscle Take 1 Capsule by mouth 3 times a day as needed for Muscle spasms. 30 Capsule 1 12/23/2022 Active Metoprolol Tartrate 25 MG Oral Tablet (Lopressor)Indication s:PAT (paroxysmal atrial tachycardia) (HCC) Take 1 Tablet by mouth in the morning and 1 Tablet before bedtime. 200 Tablet 3 05/05/2023 Active Indapamide 2.5 MG Oral Tablet (Lozol) Take 1 tablet by mouth daily 90 Tablet 0 12/11/2022 Active Gabapentin 300 MG Oral Capsule (Neurontin)Indication s:Hereditary and idiopathic peripheral neuropathy TAKE 2 CAPSULES BY MOUTH FOUR TIMES DAILY 800 Capsule 3 07/22/2023 Active Gabapentin 300 MG Oral Capsule (Neurontin)Indication s:Hereditary and idiopathic peripheral neuropathy TAKE 2 CAPSULES BY MOUTH FOUR TIMES DAILY 32 Capsule 0 07/22/2023 Active Gabapentin 300 MG Oral Capsule (Neurontin)Indication s:Hereditary and idiopathic peripheral neuropathy TAKE 2 CAPSULES FOUR TIMES DAILY 720 Capsule 1 08/14/2022 4 Discontinu ed(Refill) documented as of this encounter (statuses as [...] encounter Miscellaneous Notes * Telephone Encounter - Caroline Campbell III, MD - 07/22/2023 3:08 PM EDTSigned Prescriptions: Disp Refills Gabapentin 300 MG Oral Capsule (Neurontin) 800 Ca*3 Sig: TAKE 2 CAPSULES FOUR TIMES DAILYAuthorizing Provider: CAROLINE CAMPBELL III Gabapentin 300 MG Oral Capsule (Neurontin) 32 Cap*0 Sig: TAKE 2 CAPSULES FOUR TIMES DAILYAuthorizing Provider: CAROLINE CAMPBELL III-------- * Telephone Encounter - Ann Tomas die storage clerk - 07/22/2023 2:59 PM EDT pt calling to check on status of rx. Thank you, Ann Toams CPhT Rd Project Manager II [facility] ([facility]) 07/22/2023,2:59 PM * Telephone Encounter - Jodie Alexander CPhT - 07/22/2023 2:04 PM EDT Pt is requesting a new 90 day prescription for mail order and a short term prescription for their local pharmacy for the meantime. Please review and approve if appropriate. Pt has Gold. Pt is out of medication. Thank you, Jodie Alexander Splicer Machine Operator I [facility] ([facility]) 07/22/2023, 2:07 PM Pending Prescriptions: Disp Refills Gabapentin 300 MG Oral Capsule (Neurontin)800 Ca*3 Sig: TAKE 2 CAPSULES FOUR TIMES DAILY Gabapentin 300 MG Oral Capsule (Neurontin)32 Cap*0 Sig: TAKE 2 CAPSULES FOUR TIMES DAILY Last Visit: 06/29/2023 (in office), 08/17/2019 (telemedicine) 01/05/2024 If no future appointments scheduled, and last appointment is greater than a year ago, please schedule patient for a follow-up appointment Last date the medication was ordered: 08/14/22 Patient Phone Numbers Labs: Lab Results Component Value Date/Time CREAT 1.0 02/25/2023 01:43 PM CREAT 1.1 (H) 02/25/2020 09:59 AM POTASSIUM 3.3 (L) 02/25/2023 01:43 PM POTASSIUM 4.2 02/25/2020 09:59 AM TSH 1.75 02/25/2023 01:43 PM TSH 0.83 07/08/2018 03:50 PM LDLCALC 70 02/25/2023 01:43 PM LDLCALC 83 02/25/2020 09:59 AM LDLDIRECT 75 08/07/2022 01:41 PM LDLDIRECT 77 10/08/2017 11:32 AM ALT 13 02/25/2023 01:43 PM ALT 24 02/25/2020 09:59 AM HGBA1C 6.2 (H) 02/25/2023 01:43 PM HGBA1C 5.8 08/10/2006 04:39 PM documented in this encounter Plan of Treatment Upcoming Encounters Date Type Department Care Team (Late st Contact Info) Description 07/24/2023 2:00 PM EDT Office Visit Cardiology, [facility] [address] [address] Megan Villarreal CRNP [address] [place] [address] [place] [address] 08/28/2023 1:20 PM EDT Office Visit Family Practice [facility] [address] [place] [address] Toya Wu, DO [address] [place] [address] 11/02/2023 2:30 PM EDT Imaging Radiology, [facility] [address] [facility] [place] [address] 01/05/2024 1:00 PM EDT Office Visit Family Practice [facility] [address] [place] [address] Caroline Campbell III, MD [address] [place] [address] Health Maintenance Due Date Last Done Comments [...] D LEVEL ONCE IN A LIFETIME-USE SMARTSET# [id number] Completed 02/25/2023, 08/07/2022, 02/19/2017, Additional history exists [...] as of this encounter Visit Diagnoses Diagnosis IDIO PERIPH NEURPTHY NOS Unspecified hereditary and idiopathic peripheral neuropathy documented in this encounter Advance Directives Latest [...] the patient have Health Care Power of Beauty Shop Manager? No Care Teams Water Softener Servicer Relationship Specialty Start Date End Date Toya Wu DO [address] [place] [address] PCP - General Family Medicine 02/25/23 documented as of this encounter
--- OUTSIDE RECORDS SUMMARY | 2023-09-26 00:52 | External Medical Summary | Summary of Care ---
Author Name Unknown Organization [facility] Address [address] [place] [address] Phone [phone] Care Team Providers Care Pound Attendant Name Role Phone Catalina Wu DO Primary Care Provider [phone] Reason for Visit * Reason Comments NEW PATIENT Referred by Dr. Luke del toro for [facility] * Evaluate & Treat - Unlimited Visits (Within 10 days (routine)) - Authorized Specialty Diagnoses / Procedures Referred By Marino del toro Referred To Contact Rheumatology Diagnoses Age-related osteoporosis without current pathological fracture Hernan Fernández III, MD [address] [place] [address] Referral ID Status Reason Start Date Expiration Date Visits Requested Visits Authorized [id number] Authorized Specialty Services Required 06/29/[phone] Encounter Details Date Type Department Care Team (Late st Contact Info) Description 07/07/2023 1:00 PM EDT Office Visit Rheumatology [facility] [address] [facility] [place] [address] Chucky Palacios PA-C [address] [place] [address] High risk for fracture due to osteoporosis by DEXA scan* Allergies No known active allergiesdocumented as of this encounter (statuses as of 07/08/2023) Medications Medication Sig Dispensed Refills Start Date End Date Status MULTIVITAMIN/MULTIMIN ERAL PO TABS 1 TABLET DAILY 0 5 Active ASPIRIN 81 MG PO CHEWIndications:Centr al retinal vein occlusion One pill by mouth once a day with food 100 Tab 5 0 Active MAGOX 400 400 (241.3 MG) MG PO TABS 1 tab daILY 30 Tab 0 4 Active dorzolamide (TRUSOPT OCUMETER PLUS) 2 % ophthalmic solution Instill 1 Drop into both eyes at bedtime. 0 7 Active latanoprost (XALATAN) 0.005 % ophthalmic solution Instill 1 Drop into both eyes in the morning and 1 Drop before bedtime. 0 7 Active Calcitriol 0.5 MCG Oral Capsule (Rocaltrol) TAKE 2 CAPSULES EVERY DAY IN THE MORNING 180 Capsule 3 3 Active Rosuvastatin Calcium 10 MG Oral Tablet (Crestor) Take 1 Tablet by mouth at bedtime. 90 Tablet 3 3 Active Gabapentin 300 MG Oral Capsule (Neurontin)Indication s:Hereditary and idiopathic peripheral neuropathy TAKE 2 CAPSULES FOUR TIMES DAILY 720 Capsule 1 3 Active Omeprazole 20 MG Oral Capsule Delayed Release (PriLOSEC)Indications :Gastritis and gastroduodenitis TAKE 1 CAP TWICE DAILY 30 MINUTES BEFORE A MEAL. 180 Capsule 1 3 Active Indapamide 2.5 MG Oral Tablet (Lozol) TAKE 1 TABLET EVERY DAY 90 Tablet 1 3 Active DULoxetine HCl 60 MG Oral Capsule Delayed Release Particles (Cymbalta) TAKE 1 CAPSULE DAILY (DO NOT CUT, CRUSH OR CHEW). 90 Capsule 1 3 Active amLODIPine Besylate 2.5 MG Oral Tablet (Norvasc) TAKE 1 TABLET EVERY MORNING 90 Tablet 1 3 Active tiZANidine HCl 2 MG Oral CapsuleIndications:Sp asm of muscle Take 1 Capsule by mouth 3 times a day as needed for Muscle spasms. 30 Capsule 1 3 Active Metoprolol Tartrate 25 MG Oral Tablet (Lopressor)Indication s:PAT (paroxysmal atrial tachycardia) (HCC) Take 1 Tablet by mouth in the morning and 1 Tablet before bedtime. 200 Tablet 3 4 Active Abrysvo 120 MCG/0.5ML Intramuscular Solution Reconstituted (RSV Pre-Fusion F A&B Vac Rcmb) Inject 0.5 mL into a large muscle once for 1 dose. 0.5 mL 0 4 07/07/19 24 Discontinued documented as of this encounter (statuses as [...] Sign Reading Time Taken Comments Blood Pressure - - Pulse - - Temperature 36.1 C (96.9 F) 07/07/2023 1:15 PM ED T Respiratory Rate - - Oxygen Saturation - - Inhaled Oxygen Concentration - - Weight - - Height - - Body Mass Index - - documented in this encounter Patient Instructions * Patient Instructions* Chucky Palacios PA-C - 07/07/2023 1:31 PM EDT MEDICATION GUIDE Prolia (ME-kerrie-a) (denosumab) Injection Read the Medication Guide that comes with Prolia before you start taking it and each time you get arefill. There may be new information. This Medication Guide does not take the place of talking withyour doctor about your medical condition or treatment. Talk to your doctor if you have any questions about Prolia. What is the most important information I should know about Prolia? Prolia can cause serious side effects includin. Low calcium levels in your blood (hypocalcemia). Prolia may lower the calcium levels in your blood. If you have low blood calcium before you start receiving Prolia, it may get worse during treatment. Your low blood calcium must be treated before you receive Prolia. Most people with low blood calcium levels do not have symptoms, but some people may have symptoms. Call your doctor right away if you have symptoms of low blood calcium such as: Spasms, twitches, or cramps in your muscles Numbness or tingling in your fingers, toes, or around your mouth Your doctor may prescribe calcium and vitamin D to help prevent low calcium levels in your blood while you take Prolia. Take calcium and vitamin D as your doctor tells you to. 2. Serious infections. Serious infections in your skin, lower stomach area (abdomen), bladder, or ear may happen if you take Prolia. Inflammation of the inner lining of the heart (endocarditis) due to an infection also mayhappen more often in people who take Prolia. You may need to go to the hospital for treatment if you develop an infection. Prolia is a medicine that may affect your immune system. People who have weakened immune system or take medicines that affect the immune system may have an increased risk for developing serious infections. Call your doctor right away if you have any of the following symptoms of infection: Fever or chills Skin that looks red or swollen and is hot or tender to touch Severe abdominal pain Frequent or urgent need to urinate or burning feeling when you urinate 3. Skin problems. Skin problems such as inflammation of your skin (dermatitis), rash, and eczema may happen if you take Prolia. Call your doctor if you have any of the following symptoms of skin problems that do not go away or get worse: Redness Itching Small bumps or patches (rash) Your skin is dry or feels like leather Blisters that ooze or become crusty Skin peeling 4. Severe jaw bone problems (osteonecrosis). Severe jaw bone problems may happen when you take Prolia. Your doctor should examine your mouth before you start Prolia. Your doctor may tell you to see your dentist before you start Prolia. It is important for you to practice good mouth care during treatment with Prolia. Call your doctor right away if you have any of these side effects. What is Prolia? Prolia is a prescription medicine used to treat osteoporosis (thinning and weakening of bone) in women after menopause (change of life) who Have an increased risk for fractures (broken bones). Cannot use another osteoporosis medicine or other osteoporosis medicines did not work well. Who should not receive Prolia? Do not take Prolia if you have been told by your doctor that your blood calcium level is too low. What should I tell my doctor before receiving Prolia? Before taking Prolia, tell your doctor if you: Have low blood calcium. Cannot take daily calcium and vitamin D. Had parathyroid or thyroid surgery (glands located in your neck). Have been told you have trouble absorbing minerals in your stomach or intestines (malabsorption syndrome). Have kidney problems or are on kidney dialysis. Plan to have dental surgery or teeth removed. Are or plan to become . Prolia may harm your unborn baby. Tell your doctor right away if you become while taking Prolia. Surveillance Program: Prolia is not intended for use in women. If you become while taking Prolia, talk to your doctor about enrolling with [employer] or call (v-992-50-[facility]). The purpose of this program is to collect information about women who have become while taking Prolia. Are breast-feeding or plan to breast-feed. It is not known if Prolia passes into your breast milk. You and your doctor should decide if you will take Prolia or breast-feed. You should not do both. Tell your doctor about all the medicines you take, including prescription and nonprescription drugs, vitamins, and herbal supplements. Know the medicines you take. Keep a list of medicines with you to show to your doctor or pharmacistwhen you get a new medicine. How will I receive Prolia? Prolia is an injection that will be given to you by a healthcare professional. Prolia is injected under your skin (subcutaneous). You will receive Prolia 1 time every 6 months. You should take calcium and vitamin D as your doctor tells you to while you receive Prolia. If you miss a dose of Prolia, you should receive your injection as soon as you can. Take good care of your teeth and gums while you receive Prolia. [place] and floss your teeth regularly. Tell your dentist that you are receiving Prolia before you have dental work. What are the possible side effects of Prolia? Prolia may cause serious side effects. See What is the most important information I should know about Prolia? Long-term effects on bone: It is not known if the use of Prolia over a long period of time may cause slow healing of broken bones or unusual fractures. The most common side effects of Prolia are: Back pain Pain in your arms and legs High cholesterol Muscle pain Bladder infection These are not all the possible side effects of Prolia. For more information, ask your doctor or pharmacist. Call your doctor for medical advice about side effects. You may report side effects to FDA at 7-196-NSG-2504. How should I handle Prolia if I need to pick it up from a pharmacy? Keep Prolia in a refrigerator at 36F to 46F (2C to 8C) in the original carton. Do not freeze Prolia. When you remove Prolia from the refrigerator, Prolia must be kept at room temperature [up to 77F (25C)] in the original carton and must be used within 14 days. Do not keep Prolia at temperatures above 77F (25C). Warm temperatures will affect how Prolia works. Do not shake Prolia. Keep Prolia in the original carton to protect from light. Keep Prolia and all medicines out of reach of children. General information about Prolia Do not give Prolia to other people even if they have the same symptoms that you have. It may harm them. This Medication Guide summarizes the most important information about Prolia. If you would like more information, talk with your doctor. You can ask your doctor or pharmacist for information about Prolia that is written for health professionals. For more information, go to www.[employer] or call [employer] at . What are the ingredients in Prolia? Active ingredient: denosumab Inactive ingredients: sorbitol, acetate, polysorbate 20 (prefilled syringe only), Water for Injection ([facility]), and sodium hydroxide What is osteoporosis? Osteoporosis is a disease in which the bones become thin and weak, increasing the chance of having a broken bone. Osteoporosis usually causes no symptoms until a fracture happens. The most common fractures are in the spine (backbone). They can shorten height, even without causing pain. Over time, the spine can become curved or deformed and the body bent over. Fractures from osteoporosis can also happen in almost any bone in the body, for example: the wrist, rib, or hip. Once you have had a fracture, the chance for more fractures greatly increases. The following risk factors increase your chance of getting fractures from osteoporosis: Past broken bones from osteoporosis Very low bone mineral density (BMD) Frequent falls Limited movement, such as using a wheelchair Medical conditions likely to cause bone loss, such as some kinds of arthritis Taking steroid medicines called glucocorticoids, such as prednisone Other medicines that may cause bone loss, for example: seizure medicines (such as phenytoin), bloodthinners (such as heparin), high doses of vitamin A What can I do to treat osteoporosis? There are many steps you can take to treat osteoporosis. Taking Prolia, along with calcium and vitamin D, may be one option for you. [employer] a [employer] of [employer] [address] [employer] [place], [place] [address] This Medication Guide has been approved by the US Food and Drug Administration. 1xxxxxx ? v1 Issued: 09/2009 documented in this encounter Progress Notes * Chucky Palacios PA-C - 07/07/2023 1:15 PM EDT CONSULT - [facility] ([facility]) - baseline visit Supervised by: Dr. Shlomo Francois REASON FOR CONSULT: High Risk DXA Scan: High Risk DXA Scan (T-Score below -2.5) HPI: This is a 82 year old year old female seen at the request of Dr. Fernández for evaluation and treatment of High Risk Osteoporosis. Review of Systems: All other review of systems reviewed and negative other than mentioned in HPI. MEDICATIONS: Current Outpatient Medications Medication Sig Dispense Refill [...] by mouth at bedtime. 90 Tablet 3 Gabapentin 300 MG Oral Capsule (Neurontin) TAKE 2 CAPSULES FOUR TIMES DAILY 720 Capsule 1 Omeprazole 20 MG Oral Capsule Delayed Release (PriLOSEC) TAKE 1 CAP TWICE DAILY 30 MINUTES BEFORE AMEAL. 180 Capsule 1 Indapamide 2.5 MG Oral Tablet (Lozol) TAKE 1 TABLET EVERY DAY 90 Tablet 1 DULoxetine HCl 60 MG Oral Capsule Delayed Release Particles (Cymbalta) TAKE 1 CAPSULE DAILY (DO NOTCUT, CRUSH OR CHEW). 90 Capsule 1 amLODIPine Besylate 2.5 MG Oral Tablet (Norvasc) TAKE 1 TABLET EVERY MORNING 90 Tablet 1 tiZANidine HCl 2 MG Oral Capsule Take 1 Capsule by mouth 3 times a day as needed for Muscle spasms.30 Capsule 1 Metoprolol Tartrate 25 MG Oral Tablet (Lopressor) Take 1 Tablet by mouth in the morning and 1 Tablet before bedtime. 200 Tablet 3 No current facility-administered medications for this visit. PAST MEDICAL HISTORY: Past Medical History: Diagnosis Date Dyslipidemia, goal LDL below 160 Hypercholesterolemia Esophageal reflux GERD Hereditary and idiopathic peripheral neuropathy HTN, goal below 140/90 Migraine with aura PAST SURGICAL HISTORY: Past Surgical History: Procedure Laterality Date COLORECTAL CANCER SCREEN; NOT AT RISK 10/20/2007 repeat in 10 years EGD, FLEXIBLE, DIAGNOSTIC 05/23/2022 normal bx / ESOPHAGOGASTRODUODENOSCOPY (EGD), FLEXIBLE, TRANSORAL, DIAGNOSTIC performed by Adrien Jordan MD at ENDOSCOPY [facility] EGD, FLEXIBLE, W/BIOPSY 10/20/2007 biopsies--consistent with acid reflux, negative for tracey's esophagus EXPLORE PARATHYROID GLANDS 09/26/2013 PARATHYROIDECTOMY performed by Brian Schaffer MD at OR [facility] INJECTION OF EYE DRUG 12/27/2009 #1 Avastin OS, Dr. Drake INJECTION OF EYE DRUG 01/29/2010 #2 Avastin OS, Dr. Drake INJECTION OF EYE DRUG 02/26/2010 #3 Avastin OS, Dr. Drake INJECTION OF EYE DRUG 05/02/2010 #4 Avastin OS, Dr. Drake IOF-DEXA SCAN/BONE MINERAL AX 09/11/1998 MISCELLANEOUS ORDER ([facility] ONLY) 06/13/2010 AVASTIN LEFT EYE CONSENT SIGNED, Dr. Drake REMOVAL OF APPENDIX Appendectomy REMOVE GALLBLADDER Cholecystectomy REMOVE LUMBAR SPINE LAMINA, 3+ SEGS 04/13/1984 Lumbar Disk Excision REMOVE PILONIDAL CYST, COMPLEX N/A 06/07/2021 EXCISION OF PILONIDAL CYST SINUS COMPLICATED performed by Grover Armenta MD at [facility] UPPER GI ENDOSCOPY/EXAM VAGINAL DELIVERY ONLY times 4 Parathyroidectomy SOCIAL HISTORY: Social History Tobacco Use Smoking status: Former Current packs/day: 0.00 Types: Cigarettes Quit date: 04/13/1986 Years since quittin.2 Smokeless tobacco: Never Vaping Use Vaping Use: Never used Substance Use Topics Alcohol use: No Drug use: No PHYSICAL EXAM: Goiter: No Kyphosis: No Neuromuscular Stability: Normal Quadricep Strength: 5/5 Lungs: normal Heart: normal BONE HEALTH SUMMARY: RISKS: Family History Fx: Yes Personal History Fx: Yes, Fracture site: Ankle Current Smoker: No Weight <127 lbs: No Falls: Yes, last week in bedroom Past Medical History of: Renal Failure/Insufficiency PREVENTION: Exercise: 3 or more times weekly: No Nutrition: eats calcium rich foods: yes Calcium and Vitamin D in adequate doses: Yes DIAGNOSTIC TESTING: LABS: The following labs were reviewed and results were satisfactory: 25-OH Vitamin D calcium creatinine DXA: DXA from 10/24/20 was reviewed with Ms. Rivera. RESULTS: Left femoral neck: 0.615 gms/cm2 T-score: -2.1 Left forearm: 0.544 gms/cm2 T-score: -2.5 FRAX not indicated. VFA not indicated TREATMENTS: Previous Osteoporosis Treatment: Fosamax; Reason for Discontinue - drug holiday, number of years treated 5 ([id number]) ASSESSMENT: 82 year old year old female with M81.0 High risk for fracture due to osteoporosis by DEXA scan (primary encounter diagnosis) who is at high fracture risk and at future risk of morbidity and mortalityfrom osteoporosis. PLAN: Patient referred for consult and treatment. The following items are ordered and/or in progress: 1. Osteoporosis education was provided by the [facility] team (topics included disease process, DXA, calcium/vitamin D, osteoporosis medications, weight bearing exercise, fall prevention/safety). 2. Prevention: . Eye Examination recommended annually, as good vision may help to prevent falls . Exercise recommended: standing, walking, light lifting . Fall Prevention/Safety Education recommended and discussed . Continue calcium rich foods (goal of 3 servings daily) 3. Osteoporosis medications: Will update DEXA as last done over two years ago. Can then decide on restarting fosamax vs consideration to Prolia. Can refer back to PCP if doing Fosamax and can follow with us for Prolia if needed. Fosamax 70 mg once weekly (take it first thing in the morning on an empty stomach with large glass of water - and wait 30 min sitting or standing, prior to eating or drinking anything else) 4. Followup: Refer back to PCP for osteoporosis care. We would be happy to see this patient again in [facility] if the patient requires alternative treatment. Chucky E Philip, PA-C [facility] Team Cc: PCP: CATALINA WU [address] [place] [id number] [phone] The patient was discussed with me. I agree with the findings and plan as documented by Chucky MOHR in this note. Shlomo Francois MD Rheumatology Department documented in this encounter Nursing Notes * Cathleen Gonsalez LPN - 07/07/2023 1:14 PM EDT Chief Complaint Patient presents with NEW PATIENT Referred by Dr. Fernández for [facility] documented in this encounter Plan of Treatment Upcoming Encounters Date Type Department Care Team (Late st Contact Info) Description 07/24/2023 2:00 PM EDT Office Visit Cardiology, [facility] [address] [place] [id number] [facility]real [facility] [address] [facility] [place] [address] 08/28/2023 1:20 PM EDT Office Visit [facility] [address] [place] [address] Catalina Wu, DO [address] [facility] [place] [address] 11/02/2023 2:30 PM EDT Imaging Radiology, [facility] [address] [facility] [address] 01/05/2024 1:00 PM EDT Office Visit [facility] [address] [facility] [place] [address] Hernan Fernández III, MD [address] [facility] [place] [address] Scheduled Orders Name Type Priority Associated Diagnoses Orde r Schedule DEXA SCAN/BONE MINERAL AXIAL Medical Imaging Routine High risk for fracture due to osteoporosis by DEXA scan Ordered: 07/07/2023 Health Maintenance Due Date Last Done Comments [...] D LEVEL ONCE IN A LIFETIME-USE SMARTSET# [id number] Completed 02/25/2023, 08/07/2022, 02/19/2017, Additional history exists [...] as of this encounter Visit Diagnoses Diagnosis High risk for fracture due to osteoporosis by DEXA scan- Primary Osteoporosis, unspecified documented in this encounter Advance Directives Latest [...] the patient have Health Care Power of High School Foreign Language Teacher? No Care Teams Pound Attendant Relationship Specialty Start Date End Date Catalina Wu DO [address] [place] [address] PCP - General Family Medicine 02/25/23 documented as of this encounter
--- OUTSIDE RECORDS SUMMARY | 2023-09-26 00:52 | External Medical Summary | Summary of Care ---
Author Name Unknown Organization [facility] Address [address] [place] [address] Phone [phone] Care Team Providers Care Transitional Care Manager Name Role Phone Toya Wu DO Primary Care Provider [phone] Reason for Visit * Reason Comments Follow Up Encounter Details Date Type Department Care Team (Late st Contact Info) Description 05/05/2023 1:30 PM EST Office Visit Cardiology, [facility] [address] [facility] [place] [id number] Megan Villarreal CRNP [address] [place] [address] PAT (paroxysmal atrial tachycardia)*; Tachy-bob syndrome (HCC); 1st degree AV block; Moderate aortic insufficiency; Hyperlipidemia, unspecified hyperlipidemia type; HTN, goal below 140/90; Stage 3a chronic kidney disease (HCC); Snoring; Sleep disturbance Allergies No known active allergiesdocumented as of this encounter (statuses as of 05/19/2023) Medications Medication Sig Dispensed Refills Start Date [...] 05/21/2022 Active Gabapentin 300 MG Oral Capsule (Neurontin)Indication [...] Oral Tablet (Lopressor)Indication s:PAT (paroxysmal atrial tachycardia) Take 1 Tablet by mouth in the morning and 1 Tablet before bedtime. 200 Tablet 3 05/05/2023 Active Metoprolol Tartrate 25 MG Oral Tablet (Lopressor)Indication s:PAT (paroxysmal atrial tachycardia) Take 0.5 Tablets by mouth in the morning and 0.5 Tablets before bedtime. 45 Tablet 3 11/04/2022 Discontinu ed(Refill) Metoprolol Tartrate 25 MG Oral Tablet (Lopressor)Indication s:PAT (paroxysmal atrial tachycardia) Take 1 Tablet by mouth in the morning and 1 Tablet before bedtime. 200 Tablet 3 05/05/2023 4 Discontinu ed(Refill) documented as of this encounter (statuses as of 05/19/2023) Active Problems Problem Noted Date Diagnosed Date Prediabetes 03/23/2023 Overview: Per Prediabetes protocol Paroxysmal [...] as of this encounter (statuses as of 05/19/2023) Resolved Problems Problem Noted Date Diagnosed Date [...] as of this encounter (statuses as of 05/19/2023) Immunizations Name Administration Dates Next Due COVID-19 mRNA, LNP-s, No Pre serve, 2-Dose Series (Pfizer) 02/06/2021,06/30/2020,06/09/2020 Pneumococcal Conjugate Vacc, 13 Valent (Prevnar) 10/27/2014 Pneumococcal Polysaccharide PPV23 (Pneumovax) 10/05/2013,04/30/2007(Deferred: Patient Refused) Season Influenza, Quad, PF, Adjuvanted, 65+ Yrs, [...] Sign Reading Time Taken Comments Blood Pressure 110/52 05/05/2023 1:38 PM EST Pulse 140 05/05/2023 1:38 PM EST Temperature - - Respiratory Rate 14 05/05/2023 1:38 PM EST Oxygen Saturation - - Inhaled Oxygen Concentration - - Weight 68 kg (150 lb) 05/05/2023 1:38 PM EST Height - - Body Mass Index 26.58 05/23/2022 1:40 PM EST documented in this encounter Patient Instructions * Patient Instructions* Megan Villarreal CRNP - 05/05/2023 2:23 PM EST Start taking the metoprolol whole tablet twice per day, 25 mg documented in this encounter Progress Notes * Deloris Cutler DO - 05/19/2023 11:04 AM EST I have reviewed the advanced practitioner's documentation on the date of service referenced in note, and I agree with, and take responsibility for the plan of care. Pt seen in routine 6 month Ep f/u due to PAT Pt has been doing well no palpitation HR is slightly elevated today but she is feeling ok Bradycardia is more at night time-recommend home sleep study to see if she has an KIRSTEN Increase metoprolol to 25mg BID given the elevated HR EP f/u 2 months Deloris Cutler DO Department of Cardiology [facility] [place] [address] documented in this encounter Procedure Notes * De Berger DO - 05/05/2023 1:48 PM ESTAssociated Order(s): EKG REASON FOR STUDY: PAT/TBS CONCLUSIONS: Atrial tachycardia with occasional Premature ventricular complexes T wave abnormality, consider inferolateral ischemia Abnormal ECG When compared with ECG of 30-SEP-2022 15:44, T wave inversion now evident in Inferior leads T wave inversion now evident in Lateral leads Ventricular Rate: 127 Atrial Rate: 127 QRS Duration: 86 QT/QTc: 332/482 ms P-R-T [place]: 0 : 48 : 264 degrees documented in this encounter Nursing Notes * Maddy Cohn LPN - 05/05/2023 1:37 PM EST Examination Room: 16 Name: Florencia Rivera Date of : 1940 Reason for Visit: Follow up Problems/Concerns: SOB with ADLs Interim Hosp(s): denies Chest Pain/SOB: denies MyChart Discussed: ALREADY ACTIVE Patient was instructed to not get up on the exam table until directed and assisted by their provider; patient is to remain seated in the chair/ wheelchair/ exam table for fall prevention and safety reasons. Patient is aware staff will assist stepping down off exam table with personnel. documented in this encounter Plan of Treatment Upcoming Encounters Date Type Department Care Team (Late st Contact Info) Description 06/29/2023 12:20 PM EDT Office Visit Family [facility] [place] [address] Hernan Fernández III, MD [address] [place] [address] 06/30/2023 1:30 PM EDT Office Visit Cardiology, [facility] 132 [facility] [place] [address] Megan Villarreal CRNP 400 [facility] [place] [address] 08/28/2023 1:20 PM EDT Office Visit Family Practice [facility] [address] [place] [address] Toya Wu DO [address] [place] [address] Scheduled Orders Name Type Priority Associated Diagnoses Orde r Schedule SLEEP TEST W/ TYPE 3 PORTABLE MONITOR, 4 CHANNEL; AT HOME Procedures Routine PAT (paroxysmal atrial tachycardia) Tachy-bob syndrome (HCC) 1st degree AV block Moderate aortic insufficiency Hyperlipidemia, unspecified hyperlipidemia type HTN, goal below 140/90 Stage 3a chronic kidney disease (HCC) Snoring Sleep disturbance Expected: 05/05/2023, Expires: 06/05/2024 Health Maintenance Due Date Last Done Comments [...] D LEVEL ONCE IN A LIFETIME-USE SMARTSET# [id number] Completed 02/25/2023, 08/07/2022, 02/19/2017, Additional history exists [...] Procedure Name Priority Date/Time Associated Diagnosis Comments LA ECG ROUTINE ECG W/LEAST 12 LDS W/I&R Routine 05/05/2023 1:48 PM EST PAT (paroxysmal atrial tachycardia) Tachy-bob syndrome (HCC) documented in this encounter Results * EKG (05/05/2023 1:48 PM EST) 05/05/2023 1:48 PM EST Narrative Procedure Note De Berger DO - 05/05/2023 1:48 PM EST REASON FOR STUDY: PAT/TBS CONCLUSIONS: Atrial tachycardia with occasional Premature ventricular complexes T wave abnormality, consider inferolateral ischemia Abnormal ECG When compared with ECG of 30-SEP-2022 15:44, T wave inversion now evident in Inferior leads T wave inversion now evident in Lateral leads Ventricular Rate: 127 Atrial Rate: 127 QRS Duration: 86 QT/QTc: 332/482 ms P-R-T [place]: 0 : 48 : 264 degrees Megan CASTRO EKG [facility] documented in this encounter Visit Diagnoses Diagnosis PAT (paroxysmal atrial tachycardia)- Primary Paroxysmal supraventricular tachycardia Tachy-bob syndrome (HCC) Sinoatrial node dysfunction 1st degree AV block First degree atrioventricular block Moderate aortic insufficiency Aortic valve disorders Hyperlipidemia, unspecified hyperlipidemia type HTN, goal below 140/90 Unspecified essential hypertension Stage 3a chronic kidney disease (HCC) Snoring Other dyspnea and respiratory abnormality Sleep disturbance Sleep disturbance, unspecified documented in this encounter Advance Directives [...] the patient have Health Care Power of Cable Maintainer? No Care Teams Transitional Care Manager Relationship Specialty Start Date End Date Toya Wu DO [address] [place] [address] PCP - General Family Medicine 02/25/23 documented as of this encounter
--- OUTSIDE RECORDS SUMMARY | 2023-09-26 00:52 | External Medical Summary | Summary of Care ---
Author Name Unknown Organization [facility] Address [address] [facility] [place] [address] Phone [phone] Care Team Providers Care Agronomy Location Manager Name Role Phone Toya Wu DO Primary Care Provider [phone] [phone] Reason for Referral * Evaluate & Treat - Unlimited Visits (Within 10 days (routine)) - Authorized Specialty Diagnoses / Procedures Referred By Marino del toro Referred To Contact Rheumatology Diagnoses Age-related osteoporosis without current pathological fracture Hernan Fernández III, MD [address] [place] [id number] Referral ID Status Reason Start Date Expiration Date Visits Requested Visits Authorized [id number] Authorized Specialty Services Required 06/29/[phone] Question Answer Referral Priority Within 10 days (routine) Where should this appointment be scheduled? [facility] Reason for referral: Osteoporosis Reason for Visit * Reason Comments Follow Up Encounter Details Date Type Department Care Team (Latest Contact Info) Description 06/29/2023 12:20 PM EDT Office Visit Family [facility] [address] [place] [address] Hernan Fernández III, MD [address] [place] [address] HTN, goal below 140/90*; Open-angle glaucoma, unspecified glaucoma stage, unspecified laterality, unspecified open-angle glaucoma type; Surgical hypoparathyroidism (HCC); Migraine with aura, not intractable, without status migrainosus; High risk for fracture due to osteoporosis by DEXA scan; Paroxysmal atrial tachycardia; Chronic renal failure, stage 3a (HCC); Age-related osteoporosis without current pathological fracture; Need for RSV immunization; Pain in joint of right shoulder Allergies No known active allergiesdocumented as of this encounter (statuses as of 07/02/2023) Medications Medication Sig Dispensed Refills Start Date [...] Oral Tablet (Lopressor)Indications :PAT (paroxysmal atrial tachycardia) Take 1 Tablet by mouth in the morning and 1 Tablet before bedtime. 200 Tablet 3 05/05/2023 Active Abrysvo 120 MCG/0.5ML Intramuscular Solution Reconstituted (RSV Pre-Fusion F A&B Vac Rcmb) Inject 0.5 mL into a large muscle once for 1 dose. 0.5 mL 0 06/29/2023 documented as of this encounter (statuses as of 07/02/2023) Active Problems Problem Noted Date Diagnosed Date [...] as of this encounter (statuses as of 07/02/2023) Resolved Problems Problem Noted Date Diagnosed Date [...] as of this encounter (statuses as of 07/02/2023) Immunizations Name Administration Dates Next Due COVID-19 mRNA, LNP-s, No Pre serve, 2-Dose Series ([employer]) 02/06/2021,06/30/2020,06/09/2020 Pneumococcal Conjugate Vacc, 13 Valent (Prevnar) [...] Sign Reading Time Taken Comments Blood Pressure 110/60 06/29/2023 12:32 PM EDT Pulse 102 06/29/2023 12:32 PM EDT Temperature 35.8 C (96.4 F) 06/29/2023 12:32 PM E DT Respiratory Rate - - Oxygen Saturation 94% 06/29/2023 12:32 PM EDT Inhaled Oxygen Concentration - - Weight - - Height - - Body Mass Index - - documented in this encounter Progress Notes * Jolene III, Hernan Ellsworth MD - 06/29/2023 12:57 PM EDT Subjective: Florencia Rivera is a 82 year old female. Chief Complaint Patient presents with Follow Up HPI: Follow-up hypertension chronic kidney disease dyslipidemia paroxysmally atrial tachycardia glaucoma migraines osteoporosis surgical hypoparathyroidism most part feeling well concern today is pain feeling like it is more difficult to move her right shoulder no distinct injury that she is aware of no bleeding urine or bowels no chest pains denies shortness of breath does have some swelling of her right ankle seeing Cardiology tomorrow PMH: Patient Active Problem List Diagnosis Code IDIO PERIPH NEURPTHY NOS G60.9 HTN, goal below 140/90 I10 Esophageal reflux K21.9 CLASSICAL MIGRAINE WITHOU MENTION OF INTRACTABLE MIGRAINE G43.109 Dyslipidemia, goal LDL below 130 E78.5 Vitamin D deficiency E55.9 High risk for fracture due to osteoporosis by DEXA scan M81.0 Surgical hypoparathyroidism ([facility]) E89.2 H/O hyperparathyroidism Z86.39 PAD (peripheral artery disease) ([facility]) I73.9 Sensorineural hearing loss (SNHL) of both ears H90.3 Tinnitus of both ears H93.13 Polyneuropathy in other diseases classified elsewhere ([facility]) G63 Chronic renal failure, stage 3a ([facility]) N18.31 Moderate aortic regurgitation I35.1 First degree AV block I44.0 Paroxysmal atrial tachycardia I47.19 Tachy-bob syndrome ([facility]) I49.5 Prediabetes R73.03 Open-angle glaucoma H40.10X0 Current [...] 1 Tablet before bedtime. 200 Tablet 3 Abrysvo 120 MCG/0.5ML Intramuscular Solution Reconstituted (RSV Pre-Fusion F A&B Vac Rcmb) Inject 0.5 mL into a large muscle once for 1 dose. 0.5 mL 0 No current facility-administered medications for this visit. Review of patient's allergies indicates: No Known Allergies Past Medical History: Diagnosis Date Dyslipidemia, goal LDL below 160 Hypercholesterolemia Esophageal reflux GERD Hereditary and idiopathic peripheral neuropathy HTN, goal below 140/90 Migraine with aura Past Surgical History: Procedure Laterality Date COLORECTAL CANCER SCREEN; NOT AT RISK 10/20/2007 repeat in 10 years EGD, FLEXIBLE, DIAGNOSTIC 05/23/2022 normal bx / ESOPHAGOGASTRODUODENOSCOPY (EGD), FLEXIBLE, TRANSORAL, DIAGNOSTIC performed by Adrien Jordan MD at ENDOSCOPY [facility] EGD, FLEXIBLE, W/BIOPSY 10/20/2007 biopsies--consistent with acid reflux, negative for tracey's esophagus EXPLORE PARATHYROID GLANDS 09/26/2013 PARATHYROIDECTOMY performed [place] Brian Schaffer [place] [facility] [place]JECTION OF EYE DRUG 12/27/2009 #1 Avastin OS, Dr. Drake INJECTION OF EYE DRUG 01/29/2010 #2 Avastin OS, Dr. Drake INJECTION OF EYE DRUG 02/26/2010 #3 Avastin OS, Dr. Draek INJECTION OF EYE DRUG 05/02/2010 #4 Avastin OS, Dr. Drake IOF-DEXA SCAN/BONE MINERAL AX 09/11/1998 MISCELLANEOUS ORDER ([facility] ONLY) 06/13/2010 AVASTIN LEFT EYE CONSENT SIGNED, Dr. Drake REMOVAL OF APPENDIX Appendectomy REMOVE GALLBLADDER Cholecystectomy REMOVE LUMBAR SPINE LAMINA, 3+ SEGS 04/13/1984 Lumbar Disk Excision REMOVE PILONIDAL CYST, COMPLEX N/A 06/07/2021 EXCISION OF PILONIDAL CYST SINUS COMPLICATED performed by Grover Armenta MD at OR [facility] UPPER GI ENDOSCOPY/EXAM VAGINAL DELIVERY ONLY times 4 Objective: The patient is a 82 year old female BP 110/60 | Pulse 102 | Temp 35.8 C (96.4 F) (Tympanic) | SpO2 94% General: alert Eye Exam: PERRLA, extraocular movements intact, conjunctiva are pink and non- injected, sclera clear Oropharynx: no exudate, no erythema, lips, buccal mucosa, and tongue normal, and mucous membranes are moist Heart: regular rate & rhythm, no murmur, and no gallops Lungs: lungs clear to auscultation Extremities: no edema, no clubbing, no cyanosis ASSESSMENT: I10 HTN, goal below 140/90 (primary encounter diagnosis) H40.10X0 Open-angle glaucoma, unspecified glaucoma stage, unspecified laterality, unspecified open-angle glaucoma type E89.2 Surgical hypoparathyroidism (HCC) G43.109 Migraine with aura, not intractable, without status migrainosus M81.0 High risk for fracture due to osteoporosis by DEXA scan I47.19 Paroxysmal atrial tachycardia N18.31 Chronic renal failure, stage 3a (HCC) M81.0 Age-related osteoporosis without current pathological fracture Z29.11 Need for RSV immunization M25.511 Pain in joint of right shoulder PLAN: Continue present meds orthopedic walk-in clinic discussed RSV vaccine discussed given osteoporosis discussed will place Rheumatology referral has taken course of alendronate check renal panel microalbumin Follow up in 6 month(s). Hernan Fernández III, MD documented in this encounter Nursing Notes * Manisha Celestin LPN - 06/29/2023 12:32 PM EDT Florencia Rivera presents for 6 month recheck. Medications & HM reviewed. documented in this encounter Plan of Treatment Upcoming Encounters Date Type Department Care Team (Late st Contact Info) Description 07/07/2023 1:00 PM EDT Office Visit Rheumatology [facility] [address] [place] [address] Chucky Palacios PA-C [address] [place] [address] 07/24/2023 2:00 PM EDT Office Visit Cardiology, [facility] [address] [place] [address] Megan Villarreal CRNP [address] [place] [address] [place] [address] 08/28/2023 1:20 PM EDT Office Visit Family [facility] 132 [facility] [place] [address] Toya Wu DO 132 [facility] [place] [address] 01/05/2024 1:00 PM EDT Office Visit [facility] 200 [facility] [place] [address] Hernan Fernández III, MD 200 [facility] [place] [address] Scheduled Orders Name Type Priority Associated Diagnoses Orde r Schedule RENAL FUNCTION PANEL Lab Routine Chronic renal failure, stage 3a (HCC) Expected: 06/29/2023 (Approximate), Expires: 06/28/2024 ALBUMIN / CREATININE RATIO, URINE Lab Routine Chronic renal failure, stage 3a (HCC) Expected: 06/29/2023 (Approximate), Expires: 06/28/2024 Scheduled Referrals Name Type Priority Associated Diagnoses Orde r Schedule RHEUMATOLOGY REFERRAL OP Referral Within 10 days (routine) Age-related osteoporosis without current pathological fracture Ordered: 06/29/2023 Health Maintenance Due Date Last Done Comments [...] D LEVEL ONCE IN A LIFETIME-USE SMARTSET# [id number] Completed 02/25/2023, 08/07/2022, 02/19/2017, Additional history exists [...] goal below 140/90- Primary Unspecified essential hypertension Open-angle glaucoma, unspecified glaucoma stage, unspecified laterality, unspecified open-angle glaucoma type Surgical hypoparathyroidism (HCC) Hypoparathyroidism Migraine with aura, not intractable, without status migrainosus High risk for fracture due to osteoporosis by DEXA scan Osteoporosis, unspecified Paroxysmal atrial tachycardia Paroxysmal supraventricular tachycardia Chronic renal failure, stage 3a (HCC) Age-related osteoporosis without current pathological fracture Senile osteoporosis Need for RSV immunization Need for prophylactic vaccination and inoculation against respiratory syncytial virus Pain in joint of right shoulder Pain in joint, shoulder region documented in this encounter Advance Directives Latest [...] the patient have Health Care Power of Manager Research? No Care Teams Agronomy Location Manager Relationship Specialty Start Date End Date Toya Wu DO [address] [place] [address] PCP - General Family Medicine 02/25/23 documented as of this encounter"
--- OUTSIDE RECORDS SUMMARY | 2023-09-26 00:52 | External Medical Summary | Summary of Care ---
Author Name Unknown Organization [facility] Address [address] [place] [address] Phone [phone] Care Team Providers Care Electric Refrigerator Preparer Name Role Phone Toya Wu DO Primary Care Provider [phone] Reason for Visit * Reason Comments NEW PATIENT Referred by Dr. Luke del toro for HIROC * Evaluate & Treat - Unlimited Visits (Within 10 days (routine)) - Authorized Specialty Diagnoses / Procedures Referred By Marino del toro Referred To Contact Rheumatology Diagnoses Age-related osteoporosis without current pathological fracture Hernan Fernández III, MD [address] [place] [address] Referral ID Status Reason Start Date Expiration Date Visits Requested Visits Authorized [id number] Authorized Specialty Services Required 06/29/[phone] Encounter Details Date Type Department Care Team (Late st Contact Info) Description 07/07/2023 1:00 PM EDT Office Visit Rheumatology [facility] [address] [facility] [place] [address] Chucky Palacios PA-C [address] [place] [address] High risk for fracture due to osteoporosis by DEXA scan* Allergies No known active allergiesdocumented as of this encounter (statuses as of 07/07/2023) Medications Medication Sig Dispensed Refills Start Date [...] as of this encounter (statuses as of 07/07/2023) Active Problems Problem Noted Date Diagnosed Date [...] as of this encounter (statuses as of 07/07/2023) Resolved Problems Problem Noted Date Diagnosed Date [...] as of this encounter (statuses as of 07/07/2023) Immunizations Name Administration Dates Next Due COVID-19 [...] 07/07/2023 1:31 PM EDT MEDICATION GUIDE Prolia (KS-kerrie-a) (denosumab) Injection Read the Medication Guide that [...] about enrolling with [employer] or call (q-[phone]-[facility]). The purpose of this program is to [...] teeth and gums while you receive Prolia. [place] and floss your teeth regularly. Tell your [...] may report side effects to FDA at 6-360-XNL-8616. How should I handle Prolia if I [...] health professionals. For more information, go to www.[employer] or call [employer] at . What are the ingredients in Prolia? Active ingredient: denosumab Inactive ingredients: sorbitol, acetate, polysorbate 20 (prefilled syringe only), Water for Injection (MCFP), and sodium hydroxide What is osteoporosis? Osteoporosis [...] D, may be one option for you. [employer], a subsidiary of [employer] One [employer] [place], [place] [address] This Medication Guide has been approved by the US Food and Drug Administration. 1xxxxxx ? v1 Issued: 09/2009 documented in this encounter Nursing Notes * Cathleen Gonsalez LPN - 07/07/2023 1:14 PM EDT Chief Complaint Patient presents with NEW PATIENT Referred by Dr. Fernández for HIROC documented in this encounter Plan of Treatment Upcoming Encounters Date Type Department Care Team (Late st Contact Info) Description 07/24/2023 2:00 PM EDT Office Visit Cardiology, [facility] 132 [facility] [place] [address] Megan Villarreal CRNP 400 [facility] [place] [address] 08/28/2023 1:20 PM EDT Office Visit [facility] [address] [place] [address] Toya Wu DO 132 [facility] [place] [address] 11/02/2023 2:30 PM EDT Imaging Radiology, [facility] [address] [place] [address] [place] [address] 01/05/2024 1:00 PM EDT Office Visit [facility] [place] [address] Hernan Fernández III, MD 200 [facility] [place] [address] Scheduled Orders Name Type Priority Associated Diagnoses [...] D LEVEL ONCE IN A LIFETIME-USE SMARTSET# [id number] Completed 02/25/2023, 08/07/2022, 02/19/2017, Additional history exists [...] the patient have Health Care Power of Brusher? No Care Teams Electric Refrigerator Preparer Relationship Specialty Start Date End Date Toya Wu DO [address] [place] [address] PCP - General Family Medicine 02/25/23 documented as of this encounter
--- OUTSIDE RECORDS SUMMARY | 2023-09-26 00:52 | External Medical Summary | Summary of Care ---
Author Name Unknown Organization [facility] Address [address] [facility] [address] Phone [phone] Care Team Providers Care Manager Dental Name Role Phone Toya Wu DO Primary Care Provider [phone] Encounter Details Date Type Department Care Team (Late st Contact Info) Description 07/02/2023 Orders Only PATIENT PORTAL DO NOT DELETE THIS DEPT USED BY ON[place] [id number] Allergies No known active allergiesdocumented as of [...] 07/07/2023 1:00 PM EDT Office Visit Rheumatology [facility] [address] [place] [address] Chucky Palacios PA-C [address] [place] [address] 07/24/2023 2:00 PM EDT Office Visit Cardiology, [facility] [address] [place] [address] Megan Villarreal CRNP [address] [place] [address] 08/28/2023 1:20 PM EDT Office Visit Family Practice [facility] [address] [place] [address] Toya Wu DO [address] [place] [address] 01/05/2024 1:00 PM EDT Office Visit [facility] 200 [facility] [place] [address] Hernan Fernández III, MD 200 [facility] [place] [address] Health Maintenance Due Date Last Done Comments [...] D LEVEL ONCE IN A LIFETIME-USE SMARTSET# [id number] Completed 02/25/2023, 08/07/2022, 02/19/2017, Additional history exists [...] the patient have Health Care Power of Crematory Attendant? No Care Teams Manager Dental Relationship Specialty Start Date End Date Toya Wu DO [address] [place] [address] PCP - General Family Medicine 02/25/23 documented as of this encounter
[2023-09-26] MEDS: ACETAMINOPHEN 325 MG TAB PO PRN (04:22)
[2023-09-26 08:12] LABS: Hematocrit (blood only) 41.4 % (37.0-47.0); Hemoglobin 13.1 g/dl (12.0-16.0); Mean Corpuscular Hemoglobin 30.3 pg (25.0-34.0); Mean Corpuscular Hgb Conc 31.6 g/dL (32.0-36.0); Mean Corpuscular Volume 95.6 fL (80.0-100.0); Mean Platelet Volume 10.3 fL (9.4-12.4); Platelet Count 174 K/uL (130-400); RDW Coefficient of Variation 13.2 % (11.5-14.5); RDW Standard Deviation 46.5 fL (36.4-46.3); Red Blood Count 4.33 M/uL (4.20-5.40); White Blood Count 6.49 K/ul (4.8-10.8)
[2023-09-26] MEDS: CALCITRIOL 0.25 MCG CAPSULE PO SCH (08:19)
[2023-09-26] MEDS: cefTRIAXone SODIUM 2,000 MG/50 ML BAG IV SCH (08:33)
[2023-09-26 09:01] LABS: Calcium 8.5 mg/dl (8.6-10.3); Magnesium 1.6 mg/dl (1.7-2.4); Potassium 3.4 mmol/L (3.5-5.1)
[2023-09-26 09:06] LABS: BUN Creatinine Ratio 23.4 (10-20); Creatinine Clr Calc Pharmacy 30.8 ml/min; Est GFR (African American) 41.5 ml/min; Est GFR (Non-African American) 35.8 ml/min; Phosphorus 4.3 mg/dl (2.5-4.9)
--- NOTE | 2023-09-26 10:22 | Urology Progress Note ---
Date of Service September 26, 2023 Assessment & Plan (1) UTI (urinary tract infection): (2) Left ureteral calculus: (3) Left flank pain: Plan Should have adequate source control with left ureteral stent in place. Blood and urine cultures are still pending. Would recommend continuing broad-spectrum antibiotics and narrowing as culture data becomes available. No plan for further urologic intervention during this admission. We will arrange outpatient follow-up to discuss further stone management. Urology will sign off for now, please call with any questions or concerns. Admission and Anticipated Discharge Date Admission Date: September 25, 2023 Subjective Feeling okay this morning Tolerating a diet with no nausea or vomiting No fevers or chills Denies significant stent pain Physical Exam Physical Exam: Well-appearing, NAD Results & Data Vital Signs (Past 12 Hours) Vital Signs Temp Pulse Resp BP Pulse Ox O2 Del Method O2 Flow Rate 09/26/23 08:39 Nasal Cannula 2 09/26/23 07:50 36.9 C 69 16 126/71 97 Room Air 09/26/23 04:00 36.9 C 102 H 17 119/77 95 Nasal Cannula 2 09/25/23 22:54 36.8 C 62 17 121/72 98 Nasal Cannula 2 PG Care Time/CCT Total # of Minutes Spent Total Time Spent with Patient: Total time spent is greater than 50% in coordination of care (as documented) at patient's floor/unit and/or counseling patient: Coding Level of Care Code 81198 SUB INP/OBS CARE 05/07MIN Diagnoses UTI (urinary tract infection) N39.0 Left ureteral calculus N20.1 Left flank pain R10.9
--- NOTE | 2023-09-26 10:30 | Hospitalist Progress Note ---
Date of Service September 26, 2023 Assessment & Plan (1) UTI (urinary tract infection): (2) Left ureteral calculus: (3) Hydronephrosis: Plan Patient with acute urinary tract infection in the setting of left hydronephrosis and obstructing ureteral calculi. Status post cystoscopy with stent placement. Patient is significantly improved. However still needs hospitalization for ongoing IV antibiotics while sensitivities are pending as well as electrolyte replacement. Also patient still on oxygen and will be titrating off throughout the day today Replace electrolytes Continue antibiotics monitor sensitivities Increase activity Monitor laboratory studies Encourage deep breathing and titrate oxygen to off Reviewed urology recommendations Anticipate discharge tomorrow if sensitivities known. Admission and Anticipated Discharge Date Admission Date: September 25, 2023 Subjective Patient feeling significantly improved. Tolerated procedure yesterday. Ate a good breakfast Physical Exam Physical Exam: Constitutional: Alert, nontoxic HEENT: Mucous membranes moist. Lungs: Clear to auscultation, decreased, no wheezes rales or rhonchi CV: S1-S2, regular Abdomen: Soft, nontender, nondistended Extremities: No significant edema Neuro: No focal deficits Psych: Cooperative, normal mood Results & Data Results & Data Vital Signs (Past 12 Hours) Vital Signs Temp Pulse Resp BP Pulse Ox O2 Del Method O2 Flow Rate 09/26/23 08:39 Nasal Cannula 2 09/26/23 07:50 36.9 C 69 16 126/71 97 Room Air 09/26/23 04:00 36.9 C 102 H 17 119/77 95 Nasal Cannula 2 09/25/23 22:54 36.8 C 62 17 121/72 98 Nasal Cannula 2 Diagnostic Findings Reviewed imaging, laboratory and diagnostic studies. Pertinent findings as below. Urine culture growing gram-negative bacilli WBC 6.4, hemoglobin 13.1 Potassium 3.4 Creatinine 1.3 Magnesium 1.6
[2023-09-26] MEDS: ASPIRIN 81 MG ECTAB PO SCH (10:52)
[2023-09-26] MEDS: MAGNESIUM OXIDE 400 MG TAB PO SCH (10:52)
[2023-09-26] MEDS: POTASSIUM CHLORIDE CRTAB 20 MEQ TABCR PO SCH (10:53)
[2023-09-26] MEDS: MAGNESIUM SULFATE / D5W 1 GM/100 ML BAG IV SCH (11:02)
[2023-09-26] MEDS: BUTALBITAL/ACETAMIN/CAFFEINE TAB PO PRN (17:40)
[2023-09-27 08:09] LABS: BUN Creatinine Ratio 27.7 (10-20); Calcium 9.1 mg/dl (8.6-10.3); Creatinine Clr Calc Pharmacy 41.8 ml/min; Est GFR (Non-African American) 51.8 ml/min
[2023-09-27 08:33] LABS: Magnesium 2.4 mg/dl (1.7-2.4)
--- NOTE | 2023-09-27 09:39 | Discharge Summary ---
Discharge Summary Date of Service September 27, 2023 Principal Dx & Hospital Course #1 = Principal Diagnosis (1) UTI (urinary tract infection): (2) Left ureteral calculus: (3) Hydronephrosis: (4) Bladder mass: (5) Acute kidney injury: Plan Patient was admitted to the hospital. She was treated with IV antibiotics and fluids. Urology consultation was obtained. She was evaluated by urology and she was taken the operating room. Cystoscopy was performed with left ureteral stent placement. Also noted to have a 2 cm papillary appearing superficial bladder mass. Her postprocedure course was uneventful. Urine culture grew out E. coli that was pansensitive. On the day of discharge her vital signs were stable. She had no further pain. She was tolerating her diet. And she was up and ambulatory. She can transition to oral antibiotics. Her renal function had returned to baseline. She will follow-up with urology for definitive treatment on her stone as well as further recommendations on the bladder mass. Notes For Next Care Provider Follow-up with urology Medication Changes From Visit [facility] for treatment of UTI Admission HPI Per Admitting Provider 81-year-old lady with PMH of HLD, parathyroidectomy, PAD, HTN, GERD, CKD stage III, migraine, peripheral neuropathy presented to the ED 09/24 with complaint of left flank pain for 1 day, denies fever, denies pain or burning while passing urine, reports feeling rundown/ill/sick. Patient denies sore throat/dizziness/cough/chest pain/palpitation. Patient reports some headache - she uses fioricet at home prn, reports improving recent diarrhea. Pt Reports left flank pain going down to her left groin. Patient was discharged 2 days ago, hence medications were reviewed from the discharge summary. Patient denies any new medication changes since her last discharge. Patient quit smoking 1994, denies alcohol/recreational drug use. Full code as per my discussion with the patient. Plan of care discussed with the patient in detail, she voiced understanding. Discussed with urology, possible plan for stent placement today. Admission Exam Per Admitting Provider See H&P Discharge Exam Constitutional: Alert, nontoxic HEENT: Mucous membranes moist. Lungs: Clear to auscultation, decreased, no wheezes rales or rhonchi CV: S1-S2, regular Abdomen: Soft, nontender, nondistended Extremities: No significant edema Neuro: No focal deficits Psych: Cooperative, normal mood Updated Medication List Medication Instructions Recorded Confirmed Type gabapentin 300 mg capsule 600 mg PO QID 05/03/18 09/25/23 History magnesium oxide 400 mg PO QAM 05/03/18 09/25/23 History multivitamin 1 tab PO QAM 05/03/18 09/25/23 History omeprazole 20 mg tablet,delayed 20 mg PO BID 05/03/18 09/25/23 History release dorzolamide 22.3 mg-timolol 6.8 1 drp OPB BID 06/01/18 09/25/23 History mg/mL eye drops (Cosopt) duloxetine 60 mg capsule,delayed 60 mg PO DAILY 06/01/18 09/25/23 History release (Cymbalta) indapamide 2.5 mg tablet 2.5 mg PO DAILY 06/01/18 09/25/23 History latanoprost 0.005 % eye drops 1 drp ophthalmic (eye) HS 06/01/18 09/25/23 History (Xalatan) aspirin 81 mg tablet,delayed 81 mg PO QAM 06/24/20 09/25/23 History release (Ed Low Dose Aspirin) amlodipine 2.5 mg tablet 2.5 mg PO DAILY 09/04/22 09/25/23 History fluticasone propionate 50 1 spray intranasal HS 09/16/22 09/25/23 History mcg/actuation nasal spray,suspension (Flonase Allergy Relief) calcitriol 0.5 mcg capsule 1 mcg PO DAILY 09/25/23 09/25/23 History metoprolol tartrate 25 mg tablet 25 mg PO BID 09/25/23 09/25/23 History rosuvastatin 10 mg tablet 10 mg PO DAILY 09/25/23 09/25/23 History cephalexin 500 mg tablet 500 mg PO TID 5 days #15 tabs 09/27/23 Rx Hospital Stay Data Consultations 09/25/23 09:22 ED Decision to Admit Stat 09/25/23 09:41 Consult Urology Routine Procedures Performed Operation Date: 09/25/23 08:55 Actual Procedures p Cystoscopy, Left Retrograde Pyelogram, Left Ureteral Stent Insertion(Left) - Jimmy Tiwari MD Diagnostic Imagining Performed 09/25/23 FL KUB Routine 09/25/23 03:06 CT abd pelvis IV con only Stat Reviewed imaging, laboratory and diagnostic studies. Pertinent findings as below. Urine culture E. coli pansensitive Blood cultures no significant growth Potassium 5.0, improved Creatinine 1.01, improved CBC stable Pending Results Patient Have Any Pending Studies at Discharge: No Discharge Instructions Given to Patient (Per Discharging Provider) Complete course of antibiotics Follow-up with urology for definitive treatment of your stone Total Time Total Time Spent Total Time Spent (In Minutes): 31
== END 2023-09-27 12:59 | disposition home or self-care (01) | DRG 660 ==
LOC: ED 02:45 → EDINP 09:41 → SUATTDRO 09:41 → EDINP 12:01 → PACUINP 13:49 → 3W 14:58 → 3N 09-27 08:18

== ENCOUNTER 2023-10-13 16:19 | Inpatient (IN) ==
--- NOTE | 2023-10-13 17:00 | Emergency Department Note ---
Impression & Plan Confusion, Acute UTI, Leukocytosis, Elevated troponin, Somnolence, Hypomagnesemia, Elevated lactic acid level ED Provider Note NAME: SONNY REEVES AGE: 82 SEX: F : 1940 ARRIVES VIA: Ambulance INFORMANT: [family][ems] ED PROVIDER(S): [Usama Wyman MD] CHIEF COMPLAINT: Weakness, confusion HISTORY OF PRESENT ILLNESS: The patient is an 82-year-old female who presents to the ER with confusion and weakness and sleepiness that was all noticed today. Yesterday, she did not have the greatest appetite but mentally, she was fine. The patient had a recent UTI. She has a left ureteral stent in place for a ureteral obstruction. There has been no fever noted, no vomiting. She has some occasional diarrhea but this is typical for her. She has not complained of pain. There has been no cough or congestion. She has no known lung disease. As per EMS, the patient's O2 saturation was in the upper 80s, she was given O2 supplementation. Her blood sugar was adequate. PMHx/PSHx/Social Hx: See Below PHYSICAL EXAM: GENERAL: Patient is in no acute distress. HEENT: No acute trauma, normocephalic atraumatic, mucous membranes moist, no nasal congestion. NECK: No stridor, no adenopathy, no meningismus, trachea is midline. LUNGS: Clear to auscultation bilaterally, no wheeze, no rhonchi, breath sounds equal. HEART: Irregular rhythm, no murmurs, mildly tachycardic. ABDOMEN: Soft, nontender, no peritonitis. EXTREMITIES: No cyanosis, full range of motion of all the joints without pain or difficulty. NEUROLOGIC: Somnolent, seen to move all extremities. SKIN: No jaundice, no diaphoresis. DIFFERENTIAL DIAGNOSIS: Sepsis or bacteremia, UTI, pneumonia, viral illness, dehydration, electrolyte imbalance, intracranial bleeding or stroke, among others. EMERGENCY DEPARTMENT PROCEDURES: MEDICAL DECISION MAKING: There is a moderate leukocytosis, this would be consistent with infection. There is a normal hemoglobin and platelet count. There is no coagulopathy. Potassium and magnesium were both somewhat low. No renal failure. Lactic acid level was somewhat elevated consistent with potential infection versus some dehydration. No concerning liver enzyme elevation. Urinalysis did not suggest infection. ECG showed a sinus tachycardia, no acute ischemia. Cardiac enzyme testing x 1 was elevated. This elevation could be secondary to cardiac injury or mismatch given her infection and tachycardia. Chest x-ray did not show pneumonia or CHF. On exam, the patient seemed somnolent but did not seem in distress. A CT of the brain was performed, there is no acute bleed or mass effect. CT imaging of the abdomen pelvis showed the ureteral stent to be in proper position. No acute surgical process by CT. Patient was aggressively managed as she presented with findings concerning for sepsis. Patient received IV saline, 1.5 L. She received IV magnesium and IV cefepime. The patient is in need of a hospital stay. I am concerned for early sepsis. I am concerned with the elevated troponin. Further care/workup/monitoring is warranted. I spoke with the family, I spoke with case management, the on-call hospitalist was consulted. Prior/Outside records/notes reviewed: Today's EMS notes describing her presentation and transport to this hospital. ECG per my interpretation: Indication was possible sepsis. The ECG shows a sinus tachycardia with some PACs. The rate is 111. There is diffuse nonspecific ST change. There is no acute ST elevation. The QTc is 497. Continuous Cardiac Monitoring per my interpretation: An order was placed for continuous cardiac monitoring. The monitor shows a rate of 109 with sinus tachycardia with PACs. Imaging/x-ray results per my interpretation: Chest x-ray did not show mediastinal widening, pneumonia or pneumothorax. Chronic Medical/Social conditions affecting care: Advanced age. Care/Management discussed with: Case management, the on-call hospitalist. Level of care consideration(s): After review of the information above and other included data: --I believe the patient requires escalation of care to admission Critical Care Note: I have personally spent 51 minutes of critical care time in the direct management of this patient. This includes bedside care, interpretation of diagnostic studies, and testing, discussion with consultants, patient, and family members, and other required patient management activities. This 51 minutes is in excess of all separately billable procedures. DISPOSITION: Admission Past Med/Surg History Problem List Elevated lactic acid level (Acute) Hypomagnesemia (Acute) Somnolence (Acute) Elevated troponin (Acute) Leukocytosis (Acute) Acute UTI (Acute) Confusion (Acute) Acute kidney injury Bladder mass Abdominal pain, LLQ (Acute) Left flank pain Hydronephrosis Left ureteral calculus UTI (urinary tract infection) Tachy-bob syndrome Wenckebach Atrial tachycardia, paroxysmal Sinus tachycardia Arrhythmia (Acute) Acute electrocardiogram changes Tachycardia (Acute) Constipation (Acute) HTN (hypertension) (Chronic) GERD (gastroesophageal reflux disease) (Chronic) Migraine (Chronic) Dyslipidemia (Chronic) Vitamin D deficiency (Chronic) Osteoporosis (Chronic) Neuropathy (Chronic) H/O parathyroidectomy (Chronic) "09/26/13" Medical History Nephrolithiasis History of hydronephrosis Closed fracture of distal end of right fibula Glaucoma Bilateral tinnitus Chronic pain both feet and legs Neuropathy BOTH FEET AND LEGS Hyperlipidemia H/O parathyroidectomy Surgical History Hx of bilateral cataract extraction Hx of cholecystectomy History of back surgery lower Family History Other Cancer Social History Smoking Status: Never smoker Tobacco Type: Cigarettes Second Hand Exposure: No; Do You Dip or Chew Tobacco: No; Hx Alcohol Use: No Hx Substance Use: No Preferred Language: Mac[place] Communication Ability: Effective Visual Impairment: No Limitations Hearing Ability: Normal Shareholder Required: No Beliefs That Will Affect Care: None marital status: / Current Living Situation: Family Current Living Situation Comment: lives with daughter How many Children do You have: 2 Other Information That Helps Us Care for You: No Feels Safe at Home: Yes Assistive Devices: CPAP, Glasses, Oxygen - Continuous and Walker Allergies Allergies Allergy/AdvReac Type Severity Reaction Status Date / Time No Known Allergies Allergy Verified 10/07/23 14:28 Home Meds Home Medications Medication Instructions Recorded Confirmed gabapentin 300 mg capsule 600 mg PO QID 05/03/18 10/13/23 multivitamin 1 tab PO QAM 05/03/18 10/13/23 omeprazole 20 mg tablet,delayed 20 mg PO BID 05/03/18 10/13/23 release dorzolamide 22.3 mg-timolol 6.8 1 drp OPB HS 06/01/18 10/13/23 mg/mL eye drops (Cosopt) duloxetine 60 mg capsule,delayed 60 mg PO DAILY 06/01/18 10/13/23 release (Cymbalta) indapamide 2.5 mg tablet 2.5 mg PO DAILY 06/01/18 10/13/23 latanoprost 0.005 % eye drops 1 drp OPB AMHS 06/01/18 10/13/23 (Xalatan) aspirin 81 mg tablet,delayed 81 mg PO QAM 06/24/20 10/13/23 release (Ed Low Dose Aspirin) amlodipine 2.5 mg tablet 2.5 mg PO QA 09/04/22 10/13/23 calcitriol 0.5 mcg capsule 1 mcg PO QAM 09/25/23 10/13/23 metoprolol tartrate 25 mg tablet 25 mg PO [facility] 09/25/23 10/13/23 rosuvastatin 10 mg tablet 10 mg PO HS 09/25/23 10/13/23 latanoprostene bunod 0.024 % eye 1 drp OPB 10/13/23 10/13/23 drops (Vyzulta) magnesium oxide 400 mg (241.3 mg 400 mg PO QAM 10/13/23 10/13/23 magnesium) tablet (MagOx) tizanidine 2 mg capsule 2 mg PO TID PRN Muscle Spasm 10/13/23 10/13/23 Previous Rx's Medication Instructions Recorded oxybutynin chloride 5 mg tablet 5 mg PO Q8H PRN bladder spasms #30 10/07/23 tabs phenazopyridine 100 mg tablet 100 mg PO TID #90 tabs 10/07/23 (Pyridium) tamsulosin 0.4 mg capsule (Flomax) 0.4 mg PO DAILY kidney stone #30 10/07/23 caps Results & Data (ED) Vital Signs Vital Signs - 24 hr 10/13/23 16:24 10/13/23 16:24 10/13/23 16:27 Temperature Temperature Source Pulse Rate 96 H Pulse Rate [Apical] Pulse Rate from SpO2 Sensor 108 H Pulse Rhythm [Apical] Pulse Strength [Apical] Respiratory Rate 29 H Respiratory Effort / Characteristics Respiratory Depth Respiratory Pattern Blood Pressure 142/74 H 142/74 H Blood Pressure [Right Arm] Blood Pressure Mean 87 87 Blood Pressure Mean [Right Arm] Blood Pressure Position [Right Arm] Pulse Oximetry 90 Oxygen Delivery Method Oxygen Flow Rate Sepsis Recent Fever Within 48 Hours Sepsis New/Unexplained Change in Mental Status Sepsis Action Taken by Nursing Oxygen Flow Rate - Titration Pulse Oximetry Post Tiitration 10/13/23 16:30 10/13/23 16:30 10/13/23 16:30 Temperature Temperature Source Pulse Rate Pulse Rate [Apical] Pulse Rate from SpO2 Sensor Pulse Rhythm [Apical] Pulse Strength [Apical] Respiratory Rate Respiratory Effort / Characteristics Respiratory Depth Respiratory Pattern Blood Pressure 135/104 H 135/104 H 135/104 H Blood Pressure [Right Arm] Blood Pressure Mean 115 115 115 Blood Pressure Mean [Right Arm] Blood Pressure Position [Right Arm] Pulse Oximetry Oxygen Delivery Method Oxygen Flow Rate Sepsis Recent Fever Within 48 Hours Sepsis New/Unexplained Change in Mental Status Sepsis Action Taken by Nursing Oxygen Flow Rate - Titration Pulse Oximetry Post Tiitration 10/13/23 16:33 10/13/23 16:33 10/13/23 16:40 Temperature 37.2 C Temperature Source Oral Pulse Rate 97 H 108 H 101 H Pulse Rate [Apical] Pulse Rate from SpO2 Sensor 106 H Pulse Rhythm [Apical] Pulse Strength [Apical] Respiratory Rate 24 27 H Respiratory Effort / Characteristics Short of Breath Respiratory Depth Shallow Respiratory Pattern Regular Blood Pressure 135/104 H Blood Pressure [Right Arm] Blood Pressure Mean 114 Blood Pressure Mean [Right Arm] Blood Pressure Position [Right Arm] Pulse Oximetry 88 L 91 Oxygen Delivery Method Room Air Oxygen Flow Rate Sepsis Recent Fever Within 48 Hours No Sepsis New/Unexplained Change in Mental Status Yes Sepsis Action Taken by Nursing Physician Notified Oxygen Flow Rate - Titration Pulse Oximetry Post Tiitration 10/13/23 16:42 10/13/23 16:45 10/13/23 16:47 Temperature Temperature Source Pulse Rate 105 H Pulse Rate [Apical] Pulse Rate from SpO2 Sensor 101 H Pulse Rhythm [Apical] Pulse Strength [Apical] Respiratory Rate 27 H Respiratory Effort / Characteristics Respiratory Depth Respiratory Pattern Blood Pressure 140/95 Blood Pressure [Right Arm] Blood Pressure Mean 115 Blood Pressure Mean [Right Arm] Blood Pressure Position [Right Arm] Pulse Oximetry 95 88 L Oxygen Delivery Method Room Air Oxygen Flow Rate Sepsis Recent Fever Within 48 Hours Sepsis New/Unexplained Change in Mental Status Sepsis Action Taken by Nursing Oxygen Flow Rate - Titration 2 Pulse Oximetry Post Tiitration 93 10/13/23 16:47 10/13/23 16:53 10/13/23 16:53 Temperature Temperature Source Pulse Rate 104 H Pulse Rate [Apical] 96 H 101 H Pulse Rate from SpO2 Sensor Pulse Rhythm [Apical] Pulse Strength [Apical] Respiratory Rate 20 23 Respiratory Effort / Characteristics Non-Labored Spontaneous Respiratory Depth Normal Respiratory Pattern Regular Blood Pressure Blood Pressure [Right Arm] 140/95 Blood Pressure Mean Blood Pressure Mean [Right Arm] 110 Blood Pressure Position [Right Arm] Pulse Oximetry 93 93 Oxygen Delivery Method Nasal Cannula Nasal Cannula Oxygen Flow Rate 2 2 Sepsis Recent Fever Within 48 Hours Sepsis New/Unexplained Change in Mental Status Sepsis Action Taken by Nursing Oxygen Flow Rate - Titration Pulse Oximetry Post Tiitration 10/13/23 16:57 10/13/23 17:00 10/13/23 17:00 Temperature Temperature Source Pulse Rate 108 H Pulse Rate [Apical] Pulse Rate from SpO2 Sensor 105 H Pulse Rhythm [Apical] Pulse Strength [Apical] Respiratory Rate 31 H Respiratory Effort / Characteristics Respiratory Depth Respiratory Pattern Blood Pressure 131/82 131/82 Blood Pressure [Right Arm] Blood Pressure Mean 101 101 Blood Pressure Mean [Right Arm] Blood Pressure Position [Right Arm] Pulse Oximetry 93 Oxygen Delivery Method Oxygen Flow Rate Sepsis Recent Fever Within 48 Hours Sepsis New/Unexplained Change in Mental Status Sepsis Action Taken by Nursing Oxygen Flow Rate - Titration Pulse Oximetry Post Tiitration 10/13/23 17:00 10/13/23 17:00 10/13/23 17:15 Temperature Temperature Source Pulse Rate 92 H Pulse Rate [Apical] Pulse Rate from SpO2 Sensor 97 H Pulse Rhythm [Apical] Pulse Strength [Apical] Respiratory Rate 30 H Respiratory Effort / Characteristics Respiratory Depth Respiratory Pattern Blood Pressure 131/82 121/85 Blood Pressure [Right Arm] Blood Pressure Mean 101 104 Blood Pressure Mean [Right Arm] Blood Pressure Position [Right Arm] Pulse Oximetry 94 Oxygen Delivery Method Oxygen Flow Rate Sepsis Recent Fever Within 48 Hours Sepsis New/Unexplained Change in Mental Status Sepsis Action Taken by Nursing Oxygen Flow Rate - Titration Pulse Oximetry Post Tiitration 10/13/23 17:28 10/13/23 17:30 10/13/23 17:30 Temperature Temperature Source Pulse Rate Pulse Rate [Apical] Pulse Rate from SpO2 Sensor Pulse Rhythm [Apical] Pulse Strength [Apical] Respiratory Rate Respiratory Effort / Characteristics Respiratory Depth Respiratory Pattern Blood Pressure 105/72 146/97 H 146/97 H Blood Pressure [Right Arm] Blood Pressure Mean 87 102 102 Blood Pressure Mean [Right Arm] Blood Pressure Position [Right Arm] Pulse Oximetry Oxygen Delivery Method Oxygen Flow Rate Sepsis Recent Fever Within 48 Hours Sepsis New/Unexplained Change in Mental Status Sepsis Action Taken by Nursing Oxygen Flow Rate - Titration Pulse Oximetry Post Tiitration 10/13/23 17:42 10/13/23 17:45 10/13/23 17:45 Temperature Temperature Source Pulse Rate 82 Pulse Rate [Apical] Pulse Rate from SpO2 Sensor Pulse Rhythm [Apical] Pulse Strength [Apical] Respiratory Rate 28 H Respiratory Effort / Characteristics Respiratory Depth Respiratory Pattern Blood Pressure 111/68 111/68 Blood Pressure [Right Arm] Blood Pressure Mean 74 74 Blood Pressure Mean [Right Arm] Blood Pressure Position [Right Arm] Pulse Oximetry Oxygen Delivery Method Oxygen Flow Rate Sepsis Recent Fever Within 48 Hours Sepsis New/Unexplained Change in Mental Status Sepsis Action Taken by Nursing Oxygen Flow Rate - Titration Pulse Oximetry Post Tiitration 10/13/23 17:45 10/13/23 17:45 10/13/23 18:00 Temperature Temperature Source Pulse Rate 100 H 87 Pulse Rate [Apical] Pulse Rate from SpO2 Sensor Pulse Rhythm [Apical] Pulse Strength [Apical] Respiratory Rate 29 H 29 H Respiratory Effort / Characteristics Respiratory Depth Respiratory Pattern Blood Pressure 111/68 Blood Pressure [Right Arm] Blood Pressure Mean 74 Blood Pressure Mean [Right Arm] Blood Pressure Position [Right Arm] Pulse Oximetry 95 Oxygen Delivery Method Oxygen Flow Rate Sepsis Recent Fever Within 48 Hours Sepsis New/Unexplained Change in Mental Status Sepsis Action Taken by Nursing Oxygen Flow Rate - Titration Pulse Oximetry Post Tiitration 10/13/23 18:00 10/13/23 18:26 10/13/23 18:30 Temperature Temperature Source Pulse Rate Pulse Rate [Apical] 100 H Pulse Rate from SpO2 Sensor Pulse Rhythm [Apical] Pulse Strength [Apical] Respiratory Rate 20 Respiratory Effort / Characteristics Non-Labored Spontaneous Respiratory Depth Normal Respiratory Pattern Regular Blood Pressure 122/52 L 132/77 Blood Pressure [Right Arm] 113/56 L Blood Pressure Mean 101 100 Blood Pressure Mean [Right Arm] 75 Blood Pressure Position [Right Arm] Pulse Oximetry 93 Oxygen Delivery Method Nasal Cannula Oxygen Flow Rate 2 Sepsis Recent Fever Within 48 Hours Sepsis New/Unexplained Change in Mental Status Sepsis Action Taken by Nursing Oxygen Flow Rate - Titration Pulse Oximetry Post Tiitration 10/13/23 18:30 10/13/23 18:30 10/13/23 18:30 Temperature Temperature Source Pulse Rate 98 H Pulse Rate [Apical] Pulse Rate from SpO2 Sensor 95 H Pulse Rhythm [Apical] Pulse Strength [Apical] Respiratory Rate 22 Respiratory Effort / Characteristics Respiratory Depth Respiratory Pattern Blood Pressure 132/77 132/77 Blood Pressure [Right Arm] Blood Pressure Mean 100 100 Blood Pressure Mean [Right Arm] Blood Pressure Position [Right Arm] Pulse Oximetry 95 Oxygen Delivery Method Nasal Cannula Oxygen Flow Rate 2 Sepsis Recent Fever Within 48 Hours Sepsis New/Unexplained Change in Mental Status Sepsis Action Taken by Nursing Oxygen Flow Rate - Titration Pulse Oximetry Post Tiitration 10/13/23 18:45 10/13/23 19:15 10/13/23 19:30 Temperature Temperature Source Pulse Rate 78 Pulse Rate [Apical] 83 91 H Pulse Rate from SpO2 Sensor Pulse Rhythm [Apical] Regular Pulse Strength [Apical] Normal Respiratory Rate 22 19 14 Respiratory Effort / Characteristics Non-Labored Non-Labored Respiratory Depth Normal Normal Respiratory Pattern Regular Regular Blood Pressure Blood Pressure [Right Arm] 102/72 125/59 L Blood Pressure Mean Blood Pressure Mean [Right Arm] 82 81 Blood Pressure Position [Right Arm] Lying Lying Pulse Oximetry 96 93 Oxygen Delivery Method Nasal Cannula Nasal Cannula Oxygen Flow Rate 2 2 Sepsis Recent Fever Within 48 Hours Sepsis New/Unexplained Change in Mental Status Sepsis Action Taken by Nursing Oxygen Flow Rate - Titration Pulse Oximetry Post Tiitration Home Medications Current Medication List: was personally reviewed by me Laboratory Data Attestation: I reviewed the patient's lab results. 10/13/23 16:33 10/13/23 16:33 Lab Results 10/13/23 10/13/23 10/13/23 Range/Units 16:23 16:33 17:07 WBC 14.19 H (4.8-10.8) K/ul RBC 4.88 (4.20-5.40) M/uL Hgb 14.6 (12.0-16.0) g/dl Hct 44.9 (37.0-47.0) % MCV 92.0 (80.0-100.0) fL MCH 29.9 (25.0-34.0) pg MCHC 32.5 (32.0-36.0) g/dL RDW Std Deviation 43.4 (36.4-46.3) fL RDW Coeff of Didi 12.8 (11.5-14.5) % Plt Count 241 (130-400) K/uL MPV 10.3 (9.4-12.4) fL Immature Gran % (Auto) 0.6 % Neut % (Auto) 85.6 % Lymph % (Auto) 7.8 % [place] % (Auto) 5.7 % Eos % (Auto) 0.0 % Baso % (Auto) 0.3 % Neut # (Auto) 12.16 H (1.40-6.50) K/uL Lymph # (Auto) 1.10 L (1.20-3.40) K/uL [place] # (Auto) 0.81 H (0.11-0.59) K/uL Eos # (Auto) 0.00 (0.00-0.50) K/uL Baso # (Auto) 0.04 (0.00-0.20) K/uL Immature Gran # (Auto) 0.08 (0.01-0.20) K/uL PT 12.0 (9.0-12.0) Seconds INR 1.1 (0.9-1.1) APTT 28 (21-31) Seconds PTT Ratio 1.0 Sodium 138 (136-145) mmol/L Potassium 3.3 L (3.5-5.1) mmol/L Chloride 95 L (98-107) mmol/L Carbon Dioxide 32 (21-32) mmol/L Anion Gap 11 (3-11) BUN 30 H (6-23) mg/dl Creatinine 1.02 (0.6-1.2) mg/dl Est Cr Clr Drug Dosing 40.2 ml/min Est GFR ( Amer) 59.3 ml/min Est GFR (Non-Af Amer) 51.2 ml/min BUN/Creatinine Ratio 29.4 H (10-20) Glucose 220 H (70-99(Fasting)) mg/dl POC Glucose 188 H (70-99) mg/dl Lactate 2.1 H* (0.4-2.0) mmol/L Calcium 9.8 (8.6-10.3) mg/dl Magnesium 1.6 L (1.7-2.4) mg/dl Total Bilirubin 1.1 H (0.2-1.0) mg/dl Direct Bilirubin 0.3 H (0-0.2) mg/dl AST 20 (13-39) U/L ALT 11 (7-52) U/L Alkaline Phosphatase 53 (34-104) U/L Total Creatine Kinase 63 (26-192) U/L Troponin I High Sens 998.5 H* (0-14) pg/ml Total Protein 7.3 (6.0-8.3) gm/dl Albumin 4.0 (3.4-5.0) gm/dl Procalcitonin 0.39 (0-0.5) ng/ml Urine Color Urine Appearance (Clear) Urine pH (4.5-7.5) Ur Specific [place] (1.000-1.030) Urine Protein (Negative) Urine Glucose (UA) (Negative) Urine Ketones (Negative) Urine Blood (Negative) Urine Nitrite (Negative) Urine Bilirubin (Negative) Urine Urobilinogen (Negative) Ur Leukocyte Esterase (Negative) Urine WBC (Auto) (0-5) /hpf Urine RBC (Auto) (0-2) /hpf U Hyaline Cast (Auto) (0-2) /lpf U Epithel Cells (Auto) (0-2) /hpf Urine Bacteria (Auto) (None Seen) 10/13/23 Range/Units 17:11 WBC (4.8-10.8) K/ul RBC (4.20-5.40) M/uL Hgb (12.0-16.0) g/dl Hct (37.0-47.0) % MCV (80.0-100.0) fL MCH (25.0-34.0) pg MCHC (32.0-36.0) g/dL RDW Std Deviation (36.4-46.3) fL RDW Coeff of Didi (11.5-14.5) % Plt Count (130-400) K/uL MPV (9.4-12.4) fL Immature Gran % (Auto) % Neut % (Auto) % Lymph % (Auto) % [place] % (Auto) % Eos % (Auto) % Baso % (Auto) % Neut # (Auto) (1.40-6.50) K/uL Lymph # (Auto) (1.20-3.40) K/uL [place] # (Auto) (0.11-0.59) K/uL Eos # (Auto) (0.00-0.50) K/uL Baso # (Auto) (0.00-0.20) K/uL Immature Gran # (Auto) (0.01-0.20) K/uL PT (9.0-12.0) Seconds INR (0.9-1.1) APTT (21-31) Seconds PTT Ratio Sodium (136-145) mmol/L Potassium (3.5-5.1) mmol/L Chloride (98-107) mmol/L Carbon Dioxide (21-32) mmol/L Anion Gap (3-11) BUN (6-23) mg/dl Creatinine (0.6-1.2) mg/dl Est Cr Clr Drug Dosing ml/min Est GFR ( Amer) ml/min Est GFR (Non-Af Amer) ml/min BUN/Creatinine Ratio (10-20) Glucose (70-99(Fasting)) mg/dl POC Glucose (70-99) mg/dl Lactate (0.4-2.0) mmol/L Calcium (8.6-10.3) mg/dl Magnesium (1.7-2.4) mg/dl Total Bilirubin (0.2-1.0) mg/dl Direct Bilirubin (0-0.2) mg/dl AST (13-39) U/L ALT (7-52) U/L Alkaline Phosphatase (34-104) U/L Total Creatine Kinase (26-192) U/L Troponin I High Sens (0-14) pg/ml Total Protein (6.0-8.3) gm/dl Albumin (3.4-5.0) gm/dl Procalcitonin (0-0.5) ng/ml Urine Color [place] Urine Appearance Cloudy A (Clear) Urine pH 5.0 (4.5-7.5) Ur Specific [place] 1.024 (1.000-1.030) Urine Protein 3+ H (Negative) Urine Glucose (UA) 2+ H (Negative) Urine Ketones Trace H (Negative) Urine Blood 3+ H (Negative) Urine Nitrite Positive A (Negative) Urine Bilirubin 1+ H (Negative) Urine Urobilinogen Negative (Negative) Ur Leukocyte Esterase 2+ H (Negative) Urine WBC (Auto) 11-20 H (0-5) /hpf Urine RBC (Auto) >20 H (0-2) /hpf U Hyaline Cast (Auto) 3-5 H (0-2) /lpf U Epithel Cells (Auto) 0-2 (0-2) /hpf Urine Bacteria (Auto) 2+ H (None Seen) Administered Medications Dorzolamide/Timolol (Dorzolamide/Timolol 22.3/6.8mg/Ml 10 Ml Btl) 1 drops OPB HS MARILY Stop: 11/12/23 22:36 Last Admin: 10/13/23 23:43 Dose: 1 drops Documented By: PATRICE Potassium Chloride/Sodium Chloride (Normal Saline W/20 Meq Kcl) 20 meq in 1,000 mls @ 100 mls/hr IV .Q10H ONE; Protocol Stop: 10/14/23 05:36 Last Admin: 10/13/23 20:25 Dose: 100 mls/hr Documented By: SHEILA Latanoprost (Latanoprost 0.005% Op Soln 2.5 Ml Btl) 1 drops OPB AMHS MARILY Stop: 11/12/23 22:36 Last Admin: 10/13/23 23:43 Dose: 1 drops Documented By: PATRICE Pantoprazole Sodium (Pantoprazole 40 Mg Tab) 40 mg PO BID MARILY Stop: 11/12/23 22:36 Last Admin: 10/13/23 23:44 Dose: 40 mg Documented By: PATRICE Phenazopyridine HCl (Phenazopyridine Hcl 100 Mg Tab) 100 mg PO TID MARILY Stop: 11/12/23 22:36 Last Admin: 10/13/23 23:44 Dose: 100 mg Documented By: PATRICE Discontinued Medications Sodium Chloride (Nss) 500 mls @ 999 mls/hr IV .Q31M MARILY Stop: 10/13/23 17:30 Last Infusion: 10/13/23 17:39 Dose: Infused Documented By: Admin: 10/13/23 17:03 Dose: 999 mls/hr Documented By: TITO Cefepime HCl (Maxipime) 2,000 mg in 20 mls @ 5 mls/min IV NOW STA; Protocol Stop: 10/13/23 16:53 Last Admin: 10/13/23 17:07 Dose: 5 mls/min Documented By: TITO Sodium Chloride (Nss) 500 mls @ 999 mls/hr IV .Q31M ONE Stop: 10/13/23 17:28 Last Infusion: 10/13/23 17:39 Dose: Infused Documented By: Admin: 10/13/23 17:03 Dose: 999 mls/hr Documented By: TITO Magnesium Sulfate/Dextrose (Magnesium Sulfate / D5w) 1 gm in 100 mls @ 100 mls/hr IV NOW STA Stop: 10/13/23 19:28 Last Infusion: 10/13/23 19:46 Dose: Infused Documented By: Admin: 10/13/23 18:33 Dose: 100 mls/hr Documented By: TITO Sodium Chloride (Nss) 500 mls @ 999 mls/hr IV .Q31M ONE Stop: 10/13/23 19:00 Last Infusion: 10/13/23 19:09 Dose: Infused Documented By: Admin: 10/13/23 18:35 Dose: 999 mls/hr Documented By: TITO Imaging Data Radiologist's Impression: Chest X-Ray 10/13/23 16:50 XR chest 1V portable HISTORY: Sepsis COMPARISON: Chest 09/25/2023. FINDINGS: No pneumothorax. No pleural effusions. There are low lung volumes. A few bibasilar linear densities again noted. This favors subsegmental atelectasis or scarring and is similar to the prior study. No new focal lung consolidations to suggest a pneumonia. No evidence for pulmonary edema. The cardiac silhouette remains top normal in size. There are calcifications within the aortic knob. Degenerative changes within the shoulders. No acute fractures. IMPRESSION: Low lung volumes with bibasilar linear densities. This is similar to the prior study and favors subsegmental atelectasis. Otherwise, no acute process within the chest. ACT 112: Negative or not required by law. Electronically signed by: Dakota Cueva M.D. 10/13/2023 6:[address] 10/13/23 16:[address] DOSE: 547.75 mGy.cm HISTORY: confusion TECHNIQUE: Multiaxial CT images of the head were performed without the use of intravenous contrast. Automated exposure control was utilized for this study. A dose lowering technique was utilized adhering to the principles of ALARA. Comparison: Head CT 08/12/2009. Findings: The paranasal sinuses and mastoid air cells are clear. The calvarium and skull base are intact. There is no mass, hematoma, midline shift, acute infarct. White matter hypodensity is nonspecific but suggestive of microvascular ischemic change. The ventricles and sulci demonstrate mild age-related involutional changes. Impression: No acute intracranial abnormality. ACT 112: Negative or not required by law. Electronically signed by: Dakota Cueva M.D. 10/13/2023 5:53 PM Abdomen/Pelvis CT 10/13/23 19:01 Exam(s): CT ABDOMEN + PELVIS Without Contrast EXAM: CT Abdomen and Pelvis Without Intravenous Contrast CLINICAL HISTORY: Infect, left stent. TECHNIQUE: Axial computed tomography images of the abdomen and pelvis without intravenous contrast. CTDI is 24.85 mGy and DLP is 1282.42 mGy-cm. Automated exposure control was utilized for the study. A dose lowering technique was utilized adhering to the principles of ALARA. COMPARISON: 09/24/2021 FINDINGS: Lung bases: Increased bibasilar atelectasis. ABDOMEN: Liver: Unremarkable. Gallbladder and bile ducts: Not visualized No calcified stones. No ductal dilation. Pancreas: Fatty replaced. No ductal dilation. Spleen: Unremarkable. No splenomegaly. Adrenals: Unremarkable. No mass. Kidneys/ureters/bladder: Interval placement of a left nephrostomy catheter with the proximal loop in the renal pelvis and distal loop in the urinary bladder. Previously demonstrated proximal left ureteral calculus is no longer identified the ureter. There is a small calculus in the right posterior aspect of the urinary bladder not present on the prior study likely a passed calculus. No hydronephrosis or hydroureter. Unchanged mild left perinephric stranding. Stomach and bowel: No obstruction or ileus. Left and sigmoid colon diverticulosis without evidence for diverticulitis. PELVIS: Appendix: No findings to suggest acute appendicitis. Reproductive: Probable multiple uterine fibroids. Ovaries not well visualized. ABDOMEN and PELVIS: Intraperitoneal space: No free air. No free fluid. Bones/joints: No acute fracture. Levoscoliosis with diffuse degenerative changes of the spine. Soft tissues: Unremarkable. Vasculature: Unremarkable. No abdominal aortic aneurysm. Lymph nodes: Unremarkable. No enlarged lymph nodes. IMPRESSION: Interval placement of a left nephrostomy catheter with the proximal loop in the renal pelvis and distal loop in the urinary bladder. Previously demonstrated proximal left ureteral calculus is no longer identified the ureter. There is a small calculus in the right posterior aspect of the urinary bladder not present on the prior study likely a passed calculus. No hydronephrosis or hydroureter. Electronically signed by: Grover Faust M.D. 10/13/23 22:09 PM Discharge Plan Visit Data Chief Complaint: Weakness Stated Complaint: WEEKNESS ED Provider: Usama Wyman Discharge Problem: Confusion, Acute UTI, Leukocytosis, Elevated troponin, Somnolence, Hypomagnesemia, Elevated lactic acid level Patient Disposition: Admitted As Inpatient Condition: Serious Discharge Instructions Interventions: ED Discharge Assessment Last Done: 10/13/23 21:55 Discharge Problem: Leukocytosis Qualifiers: Leukocytosis type: unspecified Qualified Code(s): D72.829 - Elevated white blood cell count, unspecified
[2023-10-13] MEDS: SODIUM CHLORIDE 0.9% 500 ML IV SCH (17:03)
[2023-10-13] MEDS: SODIUM CHLORIDE 0.9% 500 ML IV ONE ×2 (17:03→18:35)
[2023-10-13] MEDS: CEFEPIME 2,000 MG/20 ML VIAL IV STA (17:07)
[2023-10-13 17:23] LABS: Basophils # (auto) 0.04 K/uL (0.00-0.20); Basophils % (auto) 0.3 %; Hematocrit (blood only) 44.9 % (37.0-47.0); Hemoglobin 14.6 g/dl (12.0-16.0); Immature Granulocytes # (auto) 0.08 K/uL (0.01-0.20); Immature Granulocytes % (auto) 0.6 %; Lymphocytes % (auto) 7.8 %; Mean Corpuscular Hemoglobin 29.9 pg (25.0-34.0); Mean Corpuscular Hgb Conc 32.5 g/dL (32.0-36.0); Mean Platelet Volume 10.3 fL (9.4-12.4); Monocytes # (auto) 0.81 K/uL (0.11-0.59); Monocytes % (auto) 5.7 %; Neutrophils # (auto) 12.16 K/uL (1.40-6.50); Neutrophils % (auto) 85.6 %; Platelet Count 241 K/uL (130-400); RDW Coefficient of Variation 12.8 % (11.5-14.5); RDW Standard Deviation 43.4 fL (36.4-46.3); Red Blood Count 4.88 M/uL (4.20-5.40); White Blood Count 14.19 K/ul (4.8-10.8)
[2023-10-13 17:37] LABS: BUN Creatinine Ratio 29.4 (10-20); Bilirubin Direct 0.3 mg/dl (0-0.2); Bilirubin,Total 1.1 mg/dl (0.2-1.0); Calcium 9.8 mg/dl (8.6-10.3); Creatinine Clr Calc Pharmacy 40.2 ml/min; Est GFR (African American) 59.3 ml/min; Est GFR (Non-African American) 51.2 ml/min; Magnesium 1.6 mg/dl (1.7-2.4); Potassium 3.3 mmol/L (3.5-5.1); Total Protein 7.3 gm/dl (6.0-8.3)
[2023-10-13 17:45] LABS: Troponin I High Sensitivity 998.5 pg/ml (0-14)
--- NOTE | 2023-10-13 17:56 | CT Scan Report ---
HEAD CT NONCONTRAST CT DOSE: 547.75 mGy.cm HISTORY: confusion TECHNIQUE: Multiaxial CT images of the head were performed without the use of intravenous contrast. A utomated exposure control was utilized for this study. A dose lowering technique was utilized adheri ng to the principles of ALARA. Comparison: Head CT 08/12/2009. Findings: The paranasal sinuses and mastoid air cells are clear. The calvarium and skull base are int act. There is no mass, hematoma, midline shift, acute infarct. White matter hypodensity is nonspecifi c but suggestive of microvascular ischemic change. The ventricles and sulci demonstrate mild age-rela dov involutional changes. Impression: No acute intracranial abnormality. ACT 112: Negative or not required by law. Electronically signed by: Dakota Cueva M.D. 10/13/2023 5:53 PM
[2023-10-13 18:04] LABS: INR 1.1 (0.9-1.1); Partial Thromboplastin Time 28 Seconds (21-31)
--- NOTE | 2023-10-13 18:05 | XRay Report ---
XR chest 1V portable HISTORY: Sepsis COMPARISON: Chest 09/25/2023. FINDINGS: No pneumothorax. No pleural effusions. There are low lung volumes. A few bibasilar linear d ensities again noted. This favors subsegmental atelectasis or scarring and is similar to the prior st udy. No new focal lung consolidations to suggest a pneumonia. No evidence for pulmonary edema. The ca rdiac silhouette remains top normal in size. There are calcifications within the aortic knob. Degener ative changes within the shoulders. No acute fractures. IMPRESSION: Low lung volumes with bibasilar linear densities. This is similar to the prior study and favors subse gmental atelectasis. Otherwise, no acute process within the chest. ACT 112: Negative or not required by law. Electronically signed by: Dakota Cueva M.D. 10/13/2023 6:04 PM
[2023-10-13 18:06] LABS: Appearance Urine Cloudy (Clear); Bacteria Urine Automated 2+ (None Seen); Bilirubin Urine 1+ (Negative); Blood Urine 3+ (Negative); Color Urine Orange; Epithelial Cell Urine Auto 0-2 /hpf (0-2); Glucose Urine UA 2+ (Negative); Ketones Urine Trace (Negative); Leukocyte Esterase Urine 2+ (Negative); Nitrite Urine Positive (Negative); Protein Urine 3+ (Negative); RBC Urine Automated >20 /hpf (0-2); Specific Gravity Urine 1.024 (1.000-1.030); Urobilinogen Urine Negative (Negative)
[2023-10-13] MEDS: MAGNESIUM SULFATE / D5W 1 GM/100 ML BAG IV STA (18:33)
--- NOTE | 2023-10-13 20:17 | History & Physical Report ---
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 Urology consult Re: Follow-up eval, history stent N.p.o. until seen by urology in anticipation of procedure Follow troponin, TTE for progression DVT prophylaxis. Lovenox subcu Full code Patient daughters requesting for updates regarding plan of care. Ms. Ann-Marie Rivera, contact #[phone]. Ms. Breonna Rivera, contact #[phone]. Text document was generated using [employer] voice recognition software. It may contain grammatical or spelling errors. Kindly contact undersigned for clarification of any documentation item in question. History of Present Illness Chief Complaint: Weakness, confusion as per records Primary Care Provider: Dr. Coyle History obtained from patient and records. Limited history from patient secondary to disoriented state. Medical history significant for moderate AR (TTE 2022), early TBS as per records, PAT, hypertension, hyperlipidemia, PAD, neuropathy, hyperparathyroidism status post parathyroidectomy, GERD, recurrent UTIs, bladder tumor, urolithiasis, prediabetes, past tobacco abuse. Recent confinement last month for E. coli UTI in the setting of left ureteral stone causing hydronephrosis. Patient underwent cystoscopy, and left ureteral stent insertion. Superficial bladder mass noted on cystoscopy. Patient discharged on antibiotic course. Patient seen on follow-up at [facility] urology office last week. Patient started on Flomax. Repeat cystoscopy, left ureteroscopy, TURBT contemplated for November 10, 2023. Patient noted to be increasingly weak and confused today. Denies abdominal or flank pain or unusual hematuria symptoms. Patient denies chest pain, SOB, cough symptoms. Patient given cefepime at the ER. 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 Allergies Allergy/AdvReac Type Severity Reaction Status Date / Time No Known Allergies Allergy Verified 10/07/23 14:28 Home Medications Medication Instructions Recorded Confirmed Type gabapentin 300 mg capsule 600 mg PO QID 05/03/18 10/13/23 History multivitamin 1 tab PO QAM 05/03/18 10/13/23 History omeprazole 20 mg tablet,delayed 20 mg PO BID 05/03/18 10/13/23 History release dorzolamide 22.3 mg-timolol 6.8 1 drp OPB 06/01/18 10/13/23 History mg/mL eye drops (Cosopt) duloxetine 60 mg capsule,delayed 60 mg PO DAILY 06/01/18 10/13/23 History release (Cymbalta) indapamide 2.5 mg tablet 2.5 mg PO DAILY 06/01/18 10/13/23 History latanoprost 0.005 % eye drops 1 drp OPB [facility] 06/01/18 10/13/23 History (Xalatan) aspirin 81 mg tablet,delayed 81 mg PO QAM 06/24/20 10/13/23 History release (Ed Low Dose Aspirin) amlodipine 2.5 mg tablet 2.5 mg PO QAM 09/04/22 10/13/23 History calcitriol 0.5 mcg capsule 1 mcg PO QAM 09/25/23 10/13/23 History metoprolol tartrate 25 mg tablet 25 mg PO [facility] 09/25/23 10/13/23 History rosuvastatin 10 mg tablet 10 mg PO 09/25/23 10/13/23 History oxybutynin chloride 5 mg tablet 5 mg PO Q8H PRN bladder spasms #30 10/07/23 10/13/23 Rx tabs phenazopyridine 100 mg tablet 100 mg PO TID #90 tabs 10/07/23 10/13/23 Rx (Pyridium) tamsulosin 0.4 mg capsule (Flomax) 0.4 mg PO DAILY kidney stone #30 10/07/23 10/13/23 Rx caps latanoprostene bunod 0.024 % eye 1 drp OPB HS 10/13/23 10/13/23 History drops (Vyzulta) magnesium oxide 400 mg (241.3 mg 400 mg PO QAM 10/13/23 10/13/23 History magnesium) tablet (MagOx) tizanidine 2 mg capsule 2 mg PO TID PRN Muscle Spasm 10/13/23 10/13/23 History Past Med/Surg History Problem List Severe sepsis Elevated lactic acid level (Acute) Hypomagnesemia (Acute) Somnolence (Acute) Elevated troponin (Acute) Leukocytosis (Acute) Acute UTI (Acute) Confusion (Acute) Acute kidney injury Bladder mass Abdominal pain, LLQ (Acute) Left flank pain Hydronephrosis Left ureteral calculus UTI (urinary tract infection) Tachy-bob syndrome Wenckebach Atrial tachycardia, paroxysmal Sinus tachycardia Arrhythmia (Acute) Acute electrocardiogram changes Tachycardia (Acute) Constipation (Acute) HTN (hypertension) (Chronic) GERD (gastroesophageal reflux disease) (Chronic) Migraine (Chronic) Dyslipidemia (Chronic) Vitamin D deficiency (Chronic) Osteoporosis (Chronic) Neuropathy (Chronic) H/O parathyroidectomy (Chronic) "09/26/13" Medical History Nephrolithiasis History of hydronephrosis Closed fracture of distal end of right fibula Glaucoma Bilateral tinnitus Chronic pain both feet and legs Neuropathy BOTH FEET AND LEGS Hyperlipidemia H/O parathyroidectomy Surgical History Hx of bilateral cataract extraction Hx of cholecystectomy History of back surgery lower Family History Other Cancer Social History Smoking Status: Never smoker Tobacco Type: Cigarettes Second Hand Exposure: No; Do You Dip or Chew Tobacco: No; Hx Alcohol Use: No Hx Substance Use: No Preferred Language: Spanish Communication Ability: Effective Visual Impairment: No Limitations Hearing Ability: Normal Credit Administration Officer Required: No Beliefs That Will Affect Care: None marital status: / Current Living Situation: Family Current Living Situation Comment: lives with daughter How many Children do You have: 2 Other Information That Helps Us Care for You: No Feels Safe at Home: Yes Assistive Devices: CPAP, Glasses, Oxygen - Continuous and Walker Review of Systems Review of Systems: Could not be reliably obtained secondary to disorientation Physical Exam Physical Exam: GENERAL: Disoriented, no respiratory distress SKIN: Normal color, warm HEENT:pink palpebral conjunctivae, no ptosis, dry buccal mucosa, nasal cannula in place NECK : Supple, short, no tenderness CHEST : CTA, no tenderness HEART : RRR, diastolic murmur, ABDOMEN: Some distention, nontender EXTREMITIES : Minimal LE swelling, no tenderness,, no other conspicuous deformities noted NEUROLOGIC : Disoriented, no facial asymmetry, no other gross focality Results & Data Results & Data Vital Signs (Past 12 Hours) Vital Signs Temp Pulse Pulse Resp BP BP Pulse Ox 10/13/23 19:30 91 H 14 125/59 L 93 10/13/23 19:15 83 19 102/72 96 10/13/23 18:45 78 22 10/13/23 18:30 98 H 22 95 10/13/23 18:30 132/77 10/13/23 18:30 132/77 10/13/23 18:30 132/77 10/13/23 18:26 100 H 20 113/56 L 93 10/13/23 18:00 122/52 L 10/13/23 18:00 87 29 H 95 10/13/23 17:45 100 H 29 H 10/13/23 17:45 111/68 10/13/23 17:45 111/68 10/13/23 17:45 111/68 10/13/23 17:42 82 28 H 10/13/23 17:30 146/97 H 10/13/23 17:30 146/97 H 10/13/23 17:28 105/72 10/13/23 17:15 121/85 10/13/23 17:00 92 H 30 H 94 10/13/23 17:00 131/82 10/13/23 17:00 131/82 10/13/23 17:00 131/82 10/13/23 16:57 108 H 31 H 93 10/13/23 16:53 101 H 10/13/23 16:53 104 H 23 93 10/13/23 16:47 96 H 20 140/95 93 10/13/23 16:47 88 L 10/13/23 16:45 140/95 07/02/24 16:42 105 H 27 H 95 10/13/23 16:40 101 H 10/13/23 16:33 108 H 27 H 91 10/13/23 16:33 37.2 C 97 H 24 135/104 H 88 L 10/13/23 16:30 135/104 H 10/13/23 16:30 135/104 H 10/13/23 16:30 135/104 H 10/13/23 16:27 96 H 29 H 90 10/13/23 16:24 142/74 H 10/13/23 16:24 142/74 H O2 Del Method O2 Flow Rate 10/13/23 19:30 Nasal Cannula 2 10/13/23 19:15 Nasal Cannula 2 10/13/23 18:45 10/13/23 18:30 Nasal Cannula 2 10/13/23 18:30 10/13/23 18:30 10/13/23 18:30 10/13/23 18:26 Nasal Cannula 2 10/13/23 18:00 10/13/23 18:00 10/13/23 17:45 10/13/23 17:45 10/13/23 17:45 10/13/23 17:45 10/13/23 17:42 10/13/23 17:30 10/13/23 17:30 10/13/23 17:28 10/13/23 17:15 10/13/23 17:00 10/13/23 17:00 10/13/23 17:00 10/13/23 17:00 10/13/23 16:57 10/13/23 16:53 10/13/23 16:53 Nasal Cannula 2 10/13/23 16:47 Nasal Cannula 2 10/13/23 16:47 Room Air 10/13/23 16:45 10/13/23 16:42 10/13/23 16:40 10/13/23 16:33 10/13/23 16:33 Room Air 10/13/23 16:30 10/13/23 16:30 10/13/23 16:30 10/13/23 16:27 10/13/23 16:24 10/13/23 16:24 Laboratory Results Laboratory Results WBC 14.19 K/ul (4.8-10.8) H 10/13/23 16:33 RBC 4.88 M/uL (4.20-5.40) 10/13/23 16:33 Hgb 14.6 g/dl (12.0-16.0) 10/13/23 16:33 Hct 44.9 % (37.0-47.0) 10/13/23 16:33 MCV 92.0 fL (80.0-100.0) 10/13/23 16:33 MCH 29.9 pg (25.0-34.0) 10/13/23 16:33 MCHC 32.5 g/dL (32.0-36.0) 10/13/23 16:33 RDW Std Deviation 43.4 fL (36.4-46.3) 10/13/23 16:33 RDW Coeff of Didi 12.8 % (11.5-14.5) 10/13/23 16:33 Plt Count 241 K/uL (130-400) 10/13/23 16:33 MPV 10.3 fL (9.4-12.4) 10/13/23 16:33 Immature Gran % (Auto) 0.6 % 10/13/23 16:33 Neut % (Auto) 85.6 % 10/13/23 16:33 Lymph % (Auto) 7.8 % 10/13/23 16:33 [place] % (Auto) 5.7 % 10/13/23 16:33 Eos % (Auto) 0.0 % 10/13/23 16:33 Baso % (Auto) 0.3 % 10/13/23 16:33 Neut # (Auto) 12.16 K/uL (1.40-6.50) H 10/13/23 16:33 Lymph # (Auto) 1.10 K/uL (1.20-3.40) L 10/13/23 16:33 [place] # (Auto) 0.81 K/uL (0.11-0.59) H 10/13/23 16:33 Eos # (Auto) 0.00 K/uL (0.00-0.50) 10/13/23 16:33 Baso # (Auto) 0.04 K/uL (0.00-0.20) 10/13/23 16:33 Immature Gran # (Auto) 0.08 K/uL (0.01-0.20) 10/13/23 16:33 PT 12.0 Seconds (9.0-12.0) 10/13/23 16:33 INR 1.1 (0.9-1.1) 10/13/23 16:33 APTT 28 Seconds (21-31) 10/13/23 16:33 PTT Ratio 1.0 10/13/23 16:33 Sodium 138 mmol/L (136-145) 10/13/23 16:33 Potassium 3.3 mmol/L (3.5-5.1) L 10/13/23 16:33 Chloride 95 mmol/L (98-107) L 10/13/23 16:33 Carbon Dioxide 32 mmol/L (21-32) 10/13/23 16:33 Anion Gap 11 (3-11) 10/13/23 16:33 BUN 30 mg/dl (6-23) H 10/13/23 16:33 Creatinine 1.02 mg/dl (0.6-1.2) 10/13/23 16:33 Est Cr Clr Drug Dosing 40.2 ml/min 10/13/23 16:33 Est GFR ( Amer) 59.3 ml/min 10/13/23 16:33 Est GFR (Non-Af Amer) 51.2 ml/min 10/13/23 16:33 BUN/Creatinine Ratio 29.4 (10-20) H 10/13/23 16:33 Glucose 220 mg/dl (70-99(Fasting)) H 10/13/23 16:33 POC Glucose 188 mg/dl (70-99) H 10/13/23 16:23 Lactate 1.6 mmol/L (0.4-2.0) 10/13/23 Unknown Calcium 9.8 mg/dl (8.6-10.3) 10/13/23 16:33 Magnesium 1.6 mg/dl (1.7-2.4) L 10/13/23 16:33 Total Bilirubin 1.1 mg/dl (0.2-1.0) H 10/13/23 16:33 Direct Bilirubin 0.3 mg/dl (0-0.2) H 10/13/23 16:33 AST 20 U/L (13-39) 10/13/23 16:33 ALT 11 U/L (7-52) 10/13/23 16:33 Alkaline Phosphatase 53 U/L (34-104) 10/13/23 16:33 Troponin I High Sens 1293.1 pg/ml (0-14) H* D 10/13/23 Unknown Total Protein 7.3 gm/dl (6.0-8.3) 10/13/23 16:33 Albumin 4.0 gm/dl (3.4-5.0) 10/13/23 16:33 Procalcitonin 0.39 ng/ml (0-0.5) 10/13/23 16:33 Urine Color [place] 10/13/23 17:11 Urine Appearance Cloudy (Clear) A 10/13/23 17:11 Urine pH 5.0 (4.5-7.5) 10/13/23 17:11 Ur Specific [place] 1.024 (1.000-1.030) 10/13/23 17:11 Urine Protein 3+ (Negative) H 10/13/23 17:11 Urine Glucose (UA) 2+ (Negative) H 10/13/23 17:11 Urine Ketones Trace (Negative) H 10/13/23 17:11 Urine Blood 3+ (Negative) H 10/13/23 17:11 Urine Nitrite Positive (Negative) A 10/13/23 17:11 Urine Bilirubin 1+ (Negative) H 10/13/23 17:11 Urine Urobilinogen Negative (Negative) 10/13/23 17:11 Ur Leukocyte Esterase 2+ (Negative) H 10/13/23 17:11 Urine WBC (Auto) 11-20 /hpf (0-5) H 10/13/23 17:11 Urine RBC (Auto) >20 /hpf (0-2) H 10/13/23 17:11 U Hyaline Cast (Auto) 3-5 /lpf (0-2) H 10/13/23 17:11 U Epithel Cells (Auto) 0-2 /hpf (0-2) 10/13/23 17:11 Urine Bacteria (Auto) 2+ (None Seen) H 10/13/23 17:11 Impressions Chest X-Ray 10/13/23 16:50 XR chest 1V portable HISTORY: Sepsis COMPARISON: Chest 09/25/2023. FINDINGS: No pneumothorax. No pleural effusions. There are low lung volumes. A few bibasilar linear densities again noted. This favors subsegmental atelectasis or scarring and is similar to the prior study. No new focal lung consolidations to suggest a pneumonia. No evidence for pulmonary edema. The cardiac silhouette remains top normal in size. There are calcifications within the aortic knob. Degenerative changes within the shoulders. No acute fractures. IMPRESSION: Low lung volumes with bibasilar linear densities. This is similar to the prior study and favors subsegmental atelectasis. Otherwise, no acute process within the chest. ACT 112: Negative or not required by law. Electronically signed by: Dakota Cueva M.D. 10/13/2023 6:[address] 10/13/23 16:[address] DOSE: 547.75 mGy.cm HISTORY: confusion TECHNIQUE: Multiaxial CT images of the head were performed without the use of intravenous contrast. Automated exposure control was utilized for this study. A dose lowering technique was utilized adhering to the principles of ALARA. Comparison: Head CT 08/12/2009. Findings: The paranasal sinuses and mastoid air cells are clear. The calvarium and skull base are intact. There is no mass, hematoma, midline shift, acute infarct. White matter hypodensity is nonspecific but suggestive of microvascular ischemic change. The ventricles and sulci demonstrate mild age-related involutional changes. Impression: No acute intracranial abnormality. ACT 112: Negative or not required by law. Electronically signed by: Dakota Cueva M.D. 10/13/2023 5:53 PM Diagnostic Findings EKG as per my interpretation :Rate 110, sinus tachycardia, LAD, LAFB, no ischemia, PVCs
[2023-10-13] MEDS: NSS + 20MEQ KCL 20 MEQ/1,000 ML BAG IV ONE (20:25)
--- NOTE | 2023-10-13 22:10 | CT Scan Report ---
Exam(s): CT ABDOMEN + PELVIS Without Contrast EXAM: CT Abdomen and Pelvis Without Intravenous Contrast CLINICAL HISTORY: Infect, left stent. TECHNIQUE: Axial computed tomography images of the abdomen and pelvis without intravenous contrast. CTDI is 24.85 mGy and DLP is 1282.42 mGy-cm. Automated exposure control was utilized for the study. A dose lowering technique was utilized adhering to the principles of ALARA. COMPARISON: 09/24/2021 FINDINGS: Lung bases: Increased bibasilar atelectasis. ABDOMEN: Liver: Unremarkable. Gallbladder and bile ducts: Not visualized No calcified stones. No ductal dilation. Pancreas: Fatty replaced. No ductal dilation. Spleen: Unremarkable. No splenomegaly. Adrenals: Unremarkable. No mass. Kidneys/ureters/bladder: Interval placement of a left nephrostomy catheter with the proximal loop in the renal pelvis and distal loop in the urinary bladder. Previously demonstrated proximal left ureteral calculus is no longer identified the ureter. There is a small calculus in the right posterior aspect of the urinary bladder not present on the prior study likely a passed calculus. No hydronephrosis or hydroureter. Unchanged mild left perinephric stranding. Stomach and bowel: No obstruction or ileus. Left and sigmoid colon diverticulosis without evidence for diverticulitis. PELVIS: Appendix: No findings to suggest acute appendicitis. Reproductive: Probable multiple uterine fibroids. Ovaries not well visualized. ABDOMEN and PELVIS: Intraperitoneal space: No free air. No free fluid. Bones/joints: No acute fracture. Levoscoliosis with diffuse degenerative changes of the spine. Soft tissues: Unremarkable. Vasculature: Unremarkable. No abdominal aortic aneurysm. Lymph nodes: Unremarkable. No enlarged lymph nodes. IMPRESSION: Interval placement of a left nephrostomy catheter with the proximal loop in the renal pelvis and distal loop in the urinary bladder. Previously demonstrated proximal left ureteral calculus is no longer identified the ureter. There is a small calculus in the right posterior aspect of the urinary bladder not present on the prior study likely a passed calculus. No hydronephrosis or hydroureter. Electronically signed by: Grover Faust M.D. 10/13/23 22:09 PM
[2023-10-13] MEDS ORDERED: oxyBUTYnin chloride 5 MG TAB PO PRN (22:37)
[2023-10-13 23:02] LABS: Base Excess VBG 5.3 mEq/L; HCO3 VBG 31 mmol/L; Oxygen Saturation VBG < 60.0 %; PCO2 VBG 49 mmHg (38-50); PO2 VBG 20 mmHg; pH VBG 7.41 (7.36-7.41)
[2023-10-13] MEDS: DORZOLAMIDE/TIMOLOL 22.3/6.8MG/ML 10 ML BTL OPB SCH (23:43)
[2023-10-13] MEDS: LATANOPROST 0.005% OP SOLN 2.5 ML BTL OPB SCH (23:43)
[2023-10-13] MEDS: PANTOprazole 40 MG TAB PO SCH (23:44)
[2023-10-13] MEDS: PHENAZOPYRIDINE HCL 100 MG TAB PO SCH (23:44)
[2023-10-14] MEDS: CEFEPIME 2,000 MG in SYRINGE 0 ML IV SCH (06:14)
[2023-10-14] MEDS: NSS + 20MEQ KCL 20 MEQ/1,000 ML BAG IV ONE (06:14)
[2023-10-14 06:55] LABS: Basophils # (auto) 0.04 K/uL (0.00-0.20); Basophils % (auto) 0.4 %; Hematocrit (blood only) 37.7 % (37.0-47.0); Hemoglobin 12.4 g/dl (12.0-16.0); Immature Granulocytes # (auto) 0.07 K/uL (0.01-0.20); Immature Granulocytes % (auto) 0.7 %; Lymphocytes # (auto) 0.81 K/uL (1.20-3.40); Lymphocytes % (auto) 8.2 %; Mean Corpuscular Hemoglobin 30.7 pg (25.0-34.0); Mean Corpuscular Hgb Conc 32.9 g/dL (32.0-36.0); Mean Corpuscular Volume 93.3 fL (80.0-100.0); Monocytes # (auto) 0.64 K/uL (0.11-0.59); Monocytes % (auto) 6.5 %; Neutrophils # (auto) 8.27 K/uL (1.40-6.50); Neutrophils % (auto) 84.2 %; Platelet Count 165 K/uL (130-400); RDW Coefficient of Variation 12.9 % (11.5-14.5); RDW Standard Deviation 44.5 fL (36.4-46.3); Red Blood Count 4.04 M/uL (4.20-5.40); White Blood Count 9.83 K/ul (4.8-10.8)
[2023-10-14 07:17] LABS: BUN Creatinine Ratio 34.2 (10-20); Calcium 7.8 mg/dl (8.6-10.3); Creatinine Clr Calc Pharmacy 53.5 ml/min; Est GFR (African American) 80.8 ml/min; Est GFR (Non-African American) 69.7 ml/min; Magnesium 1.7 mg/dl (1.7-2.4); Potassium 3.2 mmol/L (3.5-5.1)
[2023-10-14 07:30] LABS: Troponin I High Sensitivity 1079.3 pg/ml (0-14)
--- NOTE | 2023-10-14 08:58 | Urology Consultation ---
<Statement entered by Jimmy Tiwari MD - 10/14/23 12:30> I have discussed Ms. Rivera's case with MATTHEW Caldwell and agree with the above documentation. Ureteral stent appears to be in good position. No plan for acute intervention at this time. Agree with antibiotics and narrowing coverage as culture data becomes available. We will plan to repeat culture prio r to her scheduled surgical intervention as an outpatient. -Jimmy Tiwari MD. Date of Consultation October 14, 2023 Assessment & Plan (1) Left ureteral calculus: (2) Acute UTI: (3) Severe sepsis: (4) Bladder mass: 82 yo/F admitted for acute UTI, severe sepsis and encephalopathy Patient is s/p left ureteral stent placement on 09/25/[address] Tiwari secondary to left ureteral stone and UTI Afebrile, tachycardic this morning Labs reviewedcreatinine 0.79, no leukocytosis Urine and blood cultures are pending Continue broad-spectrum antibiotics and narrow per sensitivity data when available CT imaging reviewedleft ureteral stent appears appropriately positioned, there is a small calcification within the right posterior bladder, possible recently passed stone, no right hydronephrosis No acute intervention at this time Continue with antibiotics, supportive care and medical management per hospital medicine service Monitor voiding, bladder scan prn Her definitive stone surgery and TURBT is scheduled for 11/09, will plan to keep as scheduled after appropriate antibiotic therapy will sign off, please contact our service with any additional questions or concerns History of Present Illness Attending Physician: Stewart Mendoza MD History of Present Illness This is an 82-year-old female with past medical history of hyperparathyroidism s/p parathyroidectomy, hyperlipidemia, PAD, hypertension, GERD, CKD stage III, UTI and stones who presented to the emergency department on 10/13/2023 with confusion and weakness. She was recently hospitalized at [facility] 09/24-09/26 secondary to a left ureteral stone and UTI. She underwent left ureteral stent placement on 09/25/2023; incidental finding of approximately 2 cm bladder mass during procedure. On arrival to the ED, she was afebrile, but hypertensive, tachycardic with low oxygen saturations. Lab work showed leukocytosis 14.19, hemoglobin 14.6, potassium 3.3, creatinine 1.02, lactate 2.1, troponin 998.5. Urinalysis with 3+ blood, positive nitrates, 2+ LE, 11-20 WBC, >20 RBC and 2+ bacteria. CT abdomen pelvis without contrast showed left ureteral stent with the proximal loop in the renal pelvis and distal loop in the urinary bladder, a small calculus in the right posterior aspect of the urinary bladder. No hydronephrosis or hydroureter. She was treated with IV fluids and cefepime in the ED. She was ad mitted to hospital medicine service for complicated UTI, sepsis and encephalopathy. Urology is consulted for evaluation. Labs todaycreatinine 0.79, WBC 9.83, hemoglobin 12.4 Urine and blood cultures are pending, on IV cefepime Patient seen and examined at bedside this morning. She is resting in bed, awakens to her name. She is somewhat somnolent, but answers some yes/no questions. She does not provide much meaningful history. Denies pain at present. Allergies Allergy/AdvReac Type Severity Reaction Status Date / Time No Known Allergies Allergy Verified 10/07/23 14:28 Home Medications Medication Instructions Recorded Confirmed Type gabapentin 300 mg capsule 600 mg PO QID 05/03/18 10/13/23 History multivitamin 1 tab PO QAM 05/03/18 10/13/23 History omeprazole 20 mg tablet,delayed 20 mg PO BID 05/03/18 10/13/23 History release dorzolamide 22.3 mg-timolol 6.8 1 drp OPB HS 06/01/18 10/13/23 History mg/mL eye drops (Cosopt) duloxetine 60 mg capsule,delayed 60 mg PO DAILY 06/01/18 10/13/23 History release (Cymbalta) indapamide 2.5 mg tablet 2.5 mg PO DAILY 06/01/18 10/13/23 History latanoprost 0.005 % eye drops 1 drp OPB AMHS 06/01/18 10/13/23 History (Xalatan) aspirin 81 mg tablet,delayed 81 mg PO QAM 06/24/20 10/13/23 History release (Ed Low Dose Aspirin) amlodipine 2.5 mg tablet 2.5 mg PO QAM 09/04/22 10/13/23 History calcitriol 0.5 mcg capsule 1 mcg PO QAM 09/25/23 10/13/23 History metoprolol tartrate 25 mg tablet 25 mg PO AMHS 09/25/23 10/13/23 History rosuvastatin 10 mg tablet 10 mg PO HS 09/25/23 10/13/23 History oxybutynin chloride 5 mg tablet 5 mg PO Q8H PRN bladder spasms #30 10/07/23 10/13/23 Rx tabs phenazopyridine 100 mg tablet 100 mg PO TID #90 tabs 10/07/23 10/13/23 Rx (Pyridium) tamsulosin 0.4 mg capsule (Flomax) 0.4 mg PO DAILY kidney stone #30 10/07/23 10/13/23 Rx caps latanoprostene bunod 0.024 % eye 1 drp OPB HS 10/13/23 10/13/23 History drops (Vyzulta) magnesium oxide 400 mg (241.3 mg 400 mg PO QAM 10/13/23 10/13/23 History magnesium) tablet (MagOx) tizanidine 2 mg capsule 2 mg PO TID PRN Muscle Spasm 10/13/23 10/13/23 History Patient History Medical History Nephrolithiasis History of hydronephrosis Closed fracture of distal end of right fibula Glaucoma Bilateral tinnitus Chronic pain both feet and legs Neuropathy BOTH FEET AND LEGS Hyperlipidemia H/O parathyroidectomy Surgical History Hx of bilateral cataract extraction Hx of cholecystectomy History of back surgery lower Family History Other Cancer Social History Smoking Status: Never smoker Tobacco Type: Cigarettes Second Hand Exposure: No; Do You Dip or Chew Tobacco: No; Hx Alcohol Use: No Hx Substance Use: No Preferred Language: Tongan Communication Ability: Effective Visual Impairment: No Limitations Hearing Ability: Normal Ornithology Teacher Required: No Beliefs That Will Affect Care: None marital status: / Current Living Situation: Family Current Living Situation Comment: lives with daughter How many Children do You have: 2 Other Information That Helps Us Care for You: No Feels Safe at Home: Yes Assistive Devices: CPAP, Glasses, Oxygen - Continuous and Walker Review of Systems Review of Systems: All systems reviewed & are unremarkable except as noted in HPI & below Physical Exam Constitutional: no acute distress Respiratory: no respiratory distress and no labored breathing Supplemental oxygen in place Musculoskeletal: Head/Neck/Chest: normocephalic Neurologic: moves all extremities somnolent Psychiatric: Orientation: oriented to person and cooperative Results & Data Vital Signs (Past 12 Hours) Vital Signs Temp Pulse Resp BP Pulse Ox O2 Del Method O2 Flow Rate 10/14/23 07:59 37.1 C 117 H 20 117/66 97 Nasal Cannula 3 10/14/23 03:47 36.7 C 105 H 16 105/64 94 Room Air 10/13/23 23:02 Nasal Cannula 2 10/13/23 22:44 37.9 C H 84 18 121/66 95 Nasal Cannula 2 PG Care Time/CCT Total # of Minutes Spent Total Time Spent with Patient: Total time spent is greater than 50% in coordination of care (as documented) at patient's floor/unit and/or counseling patient: Coding Level of Care Code 24850 INT INP/OBS CARE 2/55MIN Diagnoses Left ureteral calculus N20.1 Acute UTI N39.0 Severe sepsis A41.9; R65.20 Bladder mass N32.89
[2023-10-14] MEDS: ASPIRIN 81 MG ECTAB PO SCH (10:21)
[2023-10-14] MEDS: DULoxetine HCL 60 MG CAP PO SCH (10:21)
[2023-10-14] MEDS: TAMSULOSIN HCL 0.4 MG CAP PO SCH (10:21)
[2023-10-14] MEDS: amLODIPine BESYLATE 5 MG TAB PO SCH (10:21)
[2023-10-14] MEDS: CALCITRIOL 0.25 MCG CAPSULE PO SCH (10:21)
[2023-10-14] MEDS: METOPROLOL TARTRATE 25 MG TAB PO SCH (10:22)
[2023-10-14] MEDS: ENOXAPARIN INJ 40 MG/0.4 ML SYR SQ SCH (10:24)
[2023-10-14] MEDS: ONDANSETRON INJ 2 MG/ML 2 ML VIAL IV PRN (11:30)
[2023-10-14] MEDS: POTASSIUM CHLORIDE / WTR 10 MEQ/100 ML PLCT IV SCH (11:31)
--- NOTE | 2023-10-14 11:34 | Hospitalist Progress Note ---
Date of Service October 14, 2023 Assessment & Plan (1) Severe sepsis: Plan: 82-year-old lady with PMH of TBS, PAT, HTN, HLD, PAD, neuropathy, hyperparathyroidism s/p parathyroidectomy, GERD, recurrent UTIs, bladder tumor, urolithiasis, prediabetes, past tobacco abuse who was recently admitted in the hospital last month for E. 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 Patient denies abdominal or flank pain or unusual hematuria symptoms. Patient denied chest pain or shortness of breath or cough symptoms. She is being managed for the following: Complicated UTI Severe sepsis: Secondary to above. WBC/respiratory rate/heart rate/lactate elevated at presentation. Metabolic encephalopathy Patient presenting with complaint of increasing confusion and weakness. Found to have UTI, has history of recurrent urinary infection, recent stent placement. Admitting CT head with no acute finding. Admitting CTAP: Left nephrostomy catheter with proximal loop in the renal pelvis and distal loop in the urinary bladder noted. Previously demonstrated proximal left ureteral calculus might have passed, as a small calculus in the right posterior aspect of urinary bladder is new. No hydronephrosis or hydroureter. Patient oriented x 1, WBC trending down, continue with cefepime 10/13. Follow admitting blood and urine culture. Urology on board, await recommendation. NPO until uro eval. c/w IVF, home diuretics on hold, monitor volume status. Hold neuropsychotropic medications until patient more awake. Elevated troponin: Likely demand ischemia, patient with no chest pain, EKG with sinus tachycardia, troponin elevation secondary to acute illness. Flat trend. Other chronic medical conditions: Continue with/resume home meds as and when able. 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 hyperlipidemia, on statin Rx PAD hx neuropathy on gabapentin hyperparathyroidism status post parathyroidectomy prediabetes, hemoglobin A1c of 6.14 Aug 2023 past tobacco abuse DVT prophylaxis. Lovenox subcu Full code Patient daughters Ms. Ann-Marie Rivera, contact #[phone]. Ms. Breonna Rivera, contact #[phone]. Dtr ann-marie was updated via phone 10/13, answered all her questions. She voiced understanding and was agreeable to plan of care. Text document was generated using [employer] voice recognition software. It may contain grammatical or spelling errors. Kindly contact undersigned for clarification of any documentation item in question. Admission and Anticipated Discharge Date Admission Date: October 13, 2023 Subjective Patient was seen and examined at bedside. Patient was lying in bed, on 2 L oxygen via nasal cannula, sleeping, woke up to examination. Patient is still looks sleepy/drowsy, oriented x 1, denies pain, denies chest pain, denies any discomfort. ROS not able in detail due to coagulation status. Physical Exam Physical Exam: GENERAL: Disoriented, no respiratory distress, on 2L NC O2 SKIN: Normal color, warm HEENT:pink palpebral conjunctivae, no ptosis, moist buccal mucosa, nasal cannula in place NECK : Supple, short, no tenderness CHEST : CTA, no tenderness HEART : RRR, diastolic murmur, ABDOMEN: Some distention, nontender EXTREMITIES : Minimal LE swelling, no tenderness,, no other conspicuous deformities noted NEUROLOGIC : Disoriented, no facial asymmetry, no other gross focality Results & Data Results & Data Vital Signs (Past 12 Hours) Vital Signs Temp Pulse Pulse Resp BP Pulse Ox O2 Del Method 10/14/23 10:54 Nasal Cannula 10/14/23 09:36 115 H 10/14/23 07:59 37.1 C 117 H 20 117/66 97 Nasal Cannula 10/14/23 03:47 36.7 C 105 H 16 105/64 94 Room Air O2 Flow Rate 10/14/23 10:54 2 10/14/23 09:36 10/14/23 07:59 3 10/14/23 03:47
--- OUTSIDE RECORDS SUMMARY | 2023-10-14 12:59 | External Medical Summary | Summary of Care ---
Author Name Unknown Organization [facility] Address [address] [place] [address] Phone [phone] Care Team Providers Care Anesthesiologist Name Role Phone Toya Wu DO Primary Care Provider [phone] Encounter Details Date Type Department Care Team (Late st Contact Info) Description 10/08/2023 Orders Only Laboratory, [facility] [address] [place] [address] Mert Brown DO Calculus of ureter*; Hydronephrosis with ureteral calculus Allergies No known active allergiesdocumented as of this encounter (statuses as of 10/08/2023) Medications Medication Sig Dispensed Refills Start Date [...] 1 Drop into both eyes at bedtime. 01/19/2017 Active latanoprost (XALATAN) 0.005 % ophthalmic solution Instill 1 Drop into both eyes in the morning and 1 Drop before bedtime. 02/07/2017 Active Calcitriol 0.5 MCG Oral Capsule [...] NOT CUT, CRUSH OR CHEW). 90 Capsule 12/23/2022 Active amLODIPine Besylate 2.5 MG Oral Tablet (Norvasc) TAKE 1 TABLET EVERY MORNING 90 Tablet 12/23/2022 Active tiZANidine HCl 2 MG Oral [...] 1 tablet by mouth daily 90 Tablet 12/11/2022 Active Gabapentin 300 MG Oral Capsule (Neurontin)Indications :Hereditary and idiopathic peripheral neuropathy TAKE 2 CAPSULES BY MOUTH FOUR TIMES DAILY 800 Capsule 3 07/22/2023 Active Gabapentin 300 MG Oral Capsule (Neurontin)Indications :Hereditary and idiopathic peripheral neuropathy TAKE 2 CAPSULES BY MOUTH FOUR TIMES DAILY 32 Capsule 07/22/2023 Active Vyzulta 0.024 % Ophthalmic Solution (Latanoprostene Bunod) instill 1 drop into both eyes daily at bedtime 7.5 mL 3 08/14/2023 Active documented as of this encounter (statuses as of 10/08/2023) Active Problems Problem Noted Date Diagnosed Date [...] as of this encounter (statuses as of 10/08/2023) Resolved Problems Problem Noted Date Diagnosed Date [...] as of this encounter (statuses as of 10/08/2023) Immunizations Name Administration Dates Next Due COVID-19 [...] Answer Date Recorded PHQ Adult Total Score 2 02/25/2023 Hunger Vital Sign Answer Date Recorded Within the past 12 months, y ou worried that your food would run out before you got the money to buy more. Never true 02/26/20 23 Within the past 12 months, t he food you bought just didn't last and you didn't have money to get more. Never true 02/25/2023 Childcare Answer Date Recorded Do you feel overwhelmed with taking care of a child, family member or friend? No 02/25/2023 Does your family need help f inding childcare? (Household - for ages 0-17 years) Not on file 02/25/2023 Clothing Answer Date Recorded Have you been unable to get clothing when it was really needed? No 02/25/2023 Is your family able to get c lothes or diapers when needed? (Household - for ages 0-17 years) Not on file 02/25/2023 Personal Safety Answer Date Recorded Do you feel unsafe or have concerns for your saf ety? No 02/25/2023 Do you have concerns for you r family's safety? (Household - for ages 0-17 years) Not on file 02/25/2023 Utilities Answer Date Recorded Do you have trouble paying y our heating, water, or electric bill? No 02/25/2023 Is your family able to pay t he heat, water, or electric bill? (Household - for ages 0-17 years) Not on file 02/25/2023 Does your family have access to good internet? (Household - for ages 0-17 years) Not on file 02/25/2023 Employment Status Answer Date Recorded Are you unemployed or without regular income? Ye s 02/25/2023 Does the household have a re gular source of income? (Household - for ages 0-17 years) Not on file 02/25/2023 Social Connections Answer Date Recorded How often do you feel lonely or isolated from those around you? Sometimes 02/25/2023 Financial Resource Strain Answer Date R ecorded Do you have any trouble payi ng for your medications, or do you think you might in the future? No 02/25/2023 Does your family have troubl e paying for medicine? (Household - for ages 0-17 years) Not on file 02/25/2023 Transportation Needs Answer Date Record ed READ ONLY Do you have troubl e getting a ride to medical visits or work? Never True 02/25/2023 Does your family have a hard time getting a ride to doctors visits? (Household - for ages 0-17 years) Not on file 02/25/2023 Has lack of transportation k ept you from medical appointments, meetings, work, or from getting things needed for daily living? Check all that apply. (Adult - for ages 18 years and over) Not on file 02/25/2023 Do you (or your family) have trouble finding or paying for a ride (transportation)? (Household - for ages 0-17 years) Not on file 02/25/2023 Housing Stability Answer Date Recorded Do you currently live in a s helter or have no steady place to sleep at night? No 02/25/2023 READ ONLY Do you think you a re at risk of becoming homeless? No 02/25/2023 Does your family worry about paying for your home or becoming homeless? (Household - for ages 0-17 years) Not on file 1 04/27/2022 Are you homeless or worried that you might be in the future? (Adult - for ages 18 years and over) Not on file Are you (or your family) rudolph eless or worried that you might be in the future? (Household - for ages 0-17 years) Not on file Food Insecurity Answer Date Recorded Do you need food for this week? No 02/25/2023 Are you able to get enough f ood for your family? (Household - for ages 0-17 years) Not on file 02/25/2023 Does your family need food t his week? (Household - for ages 0-17 years) Not on file 02/25/2023 Do you always have enough fo od for your family? (Household - for ages 0-17 years) Not on file 02/25/2023 Sex and Gender Information Value Date Recorded [...] Description 11/02/2023 2:30 PM EDT Imaging Radiology, [facility] [address] [place] [address] 01/26/2024 1:30 PM EDT Office Visit Cardiology, [facility] [address] [place] [address] Megan Villarreal CRNP [address] [place] [address] 03/08/2024 1:20 PM EST Office Visit Family [facility] [address] [place] [address] Toya Wu DO [address] [place] [address] Scheduled Orders Name Type Priority Associated Diagnoses Orde r Schedule CULTURE, URINE, QUANTITATIVE Lab Routine Calculus of ureter Hydronephrosis with ureteral calculus Expected: 10/08/2023, Expires: 10/07/2024 Health Maintenance Due Date Last Done Comments Zoster Vaccines (2 of 3) 04/18/2014 02/21/2014 *BISPHONATE OR OTHER ACCEPTABLE MEDICATION NEEDED FOR OSTEOPOROSIS (REFER TO SMARTSET #1146) 03/26/2019 DXA Scan 10/24/2022 10/24/2020, 12/13, 11/06/2014, Additional history exists Albumin/Creatinine Ratio 11/15/2022 11/15/2021 COVID-19 Vaccine ( season) 2022 02/06/2021, 06/30/2020, 06/09/2020 Depression Screening 02/26/2024 02/25/2023 GFR 02/28/2024 08/28/2023, 02/11, 09/30/2022, Additional history exists HbA1c 08/27/2024 08/28/2023, 02/11, 08/10/2006, Additional history exists DTaP,Tdap,and Td Vaccines (2 - Td or Tdap) 10/09/2030 10/09/2020, 05/03/2010 Pneumococcal Vaccine: 65+ Years Completed 10/27/2014, 10/05/2013 Influenza Vaccine (FLU shot) Completed 03/2023, 03/25/2022, 01/22/2021, Additional history exists VITAMIN D LEVEL ONCE IN A LIFETIME-USE SMARTSET# [id number] Completed 02/25/2023, 08/07/2022, 02/19/2017, Additional history exists [...] as of this encounter Visit Diagnoses Diagnosis Calculus of ureter- Primary Hydronephrosis with ureteral calculus Calculus of ureter documented in this encounter Advance Directives * Full Code (Latest Code Status on File) Date Activated Date Inactivated Comments 09/26/2013 8:05 PM 09/27/2013 4:20 PM This order r eflects the patients wishes and were consensually agreed upon. Question Answer Comments Discussion of Advance Directives occurred with: Not Discussed * Full Code Date Activated Date Inactivated Comments 09/26/2013 3:27 PM 09/26/2013 8:05 PM Question Answer Comments Discussion of Advance Directives occurred with: Not Discussed Does the patient have a Living Will? No Does the patient have Health Care Power of Attor brenna? No Care Teams Anesthesiologist Relationship Specialty Start Date End Date Toya Wu DO [address] [place] [address] PCP - General Family Medicine 02/25/23 documented as of this encounter
--- OUTSIDE RECORDS SUMMARY | 2023-10-14 12:59 | External Medical Summary | Summary of Care ---
Author Name Unknown Organization [facility] Address [address] [place] [address] Phone [phone] Care Team Providers Care 3D Technologist Name Role Phone Toya Wu DO Primary Care Provider [phone] Encounter Details Date Type Department Care Team (Late st Contact Info) Description 10/08/2023 Orders Only Laboratory, [facility] [address] [place] [address] Mert Brown DO Calculus of ureter*; Hydronephrosis [...] Description 11/02/2023 2:30 PM EDT Imaging Radiology, [facility] [address] [facility] [place] [address] 01/26/2024 1:30 PM EDT Office Visit Cardiology, [facility] [address] [place] [address] Megan Villarreal CRNP [address] [place] [address] 03/08/2024 1:20 PM EST Office Visit Family [facility] [address] [place] [address] Toya Wu DO [address] [place] [address] Scheduled Orders Name Type Priority Associated Diagnoses [...] D LEVEL ONCE IN A LIFETIME-USE SMARTSET# [id number] Completed 02/25/2023, 08/07/2022, 02/19/2017, Additional history exists [...] Power of Attor brenna? No Care Teams 3D Technologist Relationship Specialty Start Date End Date Toya Wu DO [address] [place] [address] PCP - General Family Medicine 02/25/23 documented as of this encounter
[2023-10-14 13:11] LABS: A calco-baum cmplx NotReported Not Detected (NotDetected); Bact fragilis Not Reported Not Detected (NotDetected); Blood Culture Id Panel See PCR Comment (NotDetected); C auris Not Reported Not Detected (NotDetected); CTX-M Resistant Gene Not Detected (NotDetected); Calbicans Not Reported Not Detected (NotDetected); Candida glabrata Not Reported Not Detected (NotDetected); Candida krusei Not Reported Not Detected (NotDetected); Cneoformans/gatti Not Reported Not Detected (NotDetected); Cparapsilosis Not Reported Not Detected (NotDetected); E cloacae compx Not Reported Not Detected (NotDetected); Efaecalis Not Reported Not Detected (NotDetected); Efaecium Not Reported Not Detected (NotDetected); Enterobacterales Not Reported Not Detected (NotDetected); Escherichia coli Not Reported Not Detected (NotDetected); H influenzae Not Reported Not Detected (NotDetected); IMP Resistant Gene Not Detected (NotDetected); K aerogenes Not Reported Not Detected (NotDetected); KPC Resistant Gene Not Detected (NotDetected); Koxytoca Not Reported Not Detected (NotDetected); Kpneumoniae grp Not Reported Not Detected (NotDetected); Lmonocyt Not Reported Not Detected (NotDetected); N meningitidis Not Reported Not Detected (NotDetected); NDM Resistant Gene Not Detected (NotDetected); P aeruginosa Not Reported DETECTED (NotDetected); Proteus spp Not Reported Not Detected (NotDetected); Salmonella spp Not Reported Not Detected (NotDetected); Staph lugdunensis Not Reported Not Detected (NotDetected); Staph spp. Not Reported Not Detected (NotDetected); Staphaureus Not Reported Not Detected (NotDetected); Staphepi Not Reported Not Detected (NotDetected); Stenmaltophilia Not Reported Not Detected (NotDetected); Strep agal(GrpB) Not Reported Not Detected (NotDetected); Strep pneum Not Reported Not Detected (NotDetected); Strep pyog (GrpA) Not Reported Not Detected (NotDetected); Strep spp Not Reported Not Detected (NotDetected); VIM Resistant Gene Not Detected (NotDetected)
[2023-10-14 14:13] LABS: Pseudomonas aeruginosa DETECTED (NotDetected)
[2023-10-14] MEDS: POTASSIUM CHLORIDE 20 MEQ/15 ML UDC PO STA (15:26)
[2023-10-14] MEDS ORDERED: cefTRIAXone SODIUM 2,000 MG/50 ML BAG IV SCH (18:00)
[2023-10-14] MEDS: ROSUVASTATIN CALCIUM 10 MG TAB PO SCH (20:54)
[2023-10-14] MEDS: POTASSIUM CHLORIDE 20 MEQ in LACTATED RINGER'S 1,000 ML IV ONE (20:57)
--- NOTE | 2023-10-15 07:26 | Electrocardiogram Report ---
Test Reason : Blood Pressure : / mmHG Vent. Rate : 111 BPM Atrial Rate : 111 BPM P-R Int : 162 ms QRS Dur : 082 ms QT Int : 366 ms P-R-T Axes : 065 011 063 degrees QTc Int : 497 ms Sinus tachycardia with Premature supraventricular complexes Prolonged QT When compared with ECG of 18-SEP-2022 08:02, Vent. rate has increased BY 52 BPM Nonspecific T wave abnormality no longer evident in Inferior leads Confirmed by Yon Keene ([id number]) on 10/15/2023 7:26:19 AM Referred By: REFERRED SELF Confirmed By:Yon Keene
[2023-10-15 08:10] LABS: Hematocrit (blood only) 38.2 % (37.0-47.0); Mean Corpuscular Hemoglobin 30.2 pg (25.0-34.0); Mean Corpuscular Hgb Conc 31.4 g/dL (32.0-36.0); Mean Corpuscular Volume 96.2 fL (80.0-100.0); Mean Platelet Volume 10.8 fL (9.4-12.4); Platelet Count 158 K/uL (130-400); RDW Coefficient of Variation 13.1 % (11.5-14.5); RDW Standard Deviation 46.4 fL (36.4-46.3); Red Blood Count 3.97 M/uL (4.20-5.40); White Blood Count 8.17 K/ul (4.8-10.8)
[2023-10-15 08:42] LABS: BUN Creatinine Ratio 39.7 (10-20); Calcium 7.5 mg/dl (8.6-10.3); Creatinine Clr Calc Pharmacy 54.5 ml/min; Est GFR (African American) 82.1 ml/min; Est GFR (Non-African American) 70.8 ml/min; Magnesium 1.6 mg/dl (1.7-2.4); Phosphorus 2.3 mg/dl (2.5-4.9); Potassium 3.9 mmol/L (3.5-5.1)
[2023-10-15] MEDS: PROMETHAZINE HCL 6.25 MG in SODIUM CHLORIDE 0.9% 50 ML IV PRN (11:09)
--- NOTE | 2023-10-15 14:29 | Hospitalist Progress Note ---
Date of Service October 15, 2023 Assessment & Plan (1) Severe sepsis: Plan: 82-year-old lady with PMH of TBS, PAT, HTN, HLD, PAD, neuropathy, hyperparathyroidism s/p parathyroidectomy, GERD, recurrent UTIs, bladder tumor, urolithiasis, prediabetes, past tobacco abuse who was recently admitted in the hospital last month for E. 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 Patient denies abdominal or flank pain or unusual hematuria symptoms. Patient denied chest pain or shortness of breath or cough symptoms. She is being managed for the following: Complicated UTI - Psedomonas UTI Severe sepsis: Secondary to above. WBC/respiratory rate/heart rate/lactate elevated at presentation. Metabolic encephalopathy Pseudomonas bacteremia Patient presenting with complaint of increasing confusion and weakness. Found to have UTI, has history of recurrent urinary infection, recent stent placement. Admitting CT head with no acute finding. Admitting CTAP: Left nephrostomy catheter with proximal loop in the renal pelvis and distal loop in the urinary bladder noted. Previously demonstrated proximal left ureteral calculus might have passed, as a small calculus in the right posterior aspect of urinary bladder is new. No hydronephrosis or hydroureter. Patient oriented x 3, lacks insight, WBC trending down, continue with cefepime 10/12 evening. Follow admitting blood and urine culture -- Pseudomonas noted. Repeat Bl Cx 10/13 pending. Urology on board, appreciate recommendation. Monitor PO intake, if improving, no IVF. low threshold for starting ivf. continue to hold home diuretics today. Hold neuropsychotropic medications for now. ECHO to ro IE. ID consult, await recs. Elevated troponin: Likely demand ischemia, patient with no chest pain, EKG with sinus tachycardia, troponin elevation secondary to acute illness. Flat trend. Other chronic medical conditions: Continue with/resume home meds as and when able. moderate AR (TTE 2022)/early TBS as per records/PAT, patient follows with [facility] Cardiology hypertension, BP fairly stable. hyperlipidemia, on statin Rx PAD hx neuropathy on gabapentin hyperparathyroidism status post parathyroidectomy prediabetes, hemoglobin A1c of 6.14 Aug 2023 past tobacco abuse DVT prophylaxis. Lovenox subcu Full code Patient daughters Ms. Ann-Marie Rivera, contact #[phone]. Ms. Breonna Rivera, contact #[phone]. Dtr ann-mraie was updated via phone 10/13, answered all her questions. She voiced understanding and was agreeable to plan of care. Pt's dtr ann-marie was udpated at bedside during second visit on 10/14. Answered all her questions. Text document was generated using uStudio voice recognition software. It may contain grammatical or spelling errors. Kindly contact undersigned for clarification of any documentation item in question. Admission and Anticipated Discharge Date Admission Date: October 13, 2023 Subjective Patient was seen and examined at bedside. Patient was lying in bed, on 2 L oxygen via nasal cannula, oriented but lacks insight and depth of medical problem she is going through. Patient is still looks tired, denies pain, denies chest pain, denies any discomfort. Per RN, pt w/ improving appetite, moved bowel yesterday and no new acute events overnight. Physical Exam Physical Exam: GENERAL: Disoriented, no respiratory distress, on 2L NC O2 SKIN: Normal color, warm HEENT:pink palpebral conjunctivae, no ptosis, moist buccal mucosa, nasal cannula in place NECK : Supple, short, no tenderness CHEST : CTA, no tenderness HEART : RRR, diastolic murmur, ABDOMEN: Some distention, nontender EXTREMITIES : Minimal LE swelling, no tenderness,, no other conspicuous deformities noted NEUROLOGIC : Disoriented, no facial asymmetry, no other gross focality Results & Data Results & Data Vital Signs (Past 12 Hours) Vital Signs Temp Pulse Pulse Resp BP Pulse Ox O2 Del Method 10/15/23 11:32 36.4 C L 73 16 108/69 96 Nasal Cannula 10/15/23 09:10 Nasal Cannula 10/15/23 08:00 36.6 C 98 H 17 112/66 96 Nasal Cannula 10/15/23 07:20 91 H 10/15/23 03:23 36.5 C 83 16 136/74 96 Nasal Cannula O2 Flow Rate 10/15/23 11:32 2 10/15/23 09:10 1 10/15/23 08:00 1.5 10/15/23 07:20 10/15/23 03:23 1
[2023-10-16 08:10] LABS: Hematocrit (blood only) 37.5 % (37.0-47.0); Hemoglobin 11.8 g/dl (12.0-16.0); Mean Corpuscular Hemoglobin 30.2 pg (25.0-34.0); Mean Corpuscular Hgb Conc 31.5 g/dL (32.0-36.0); Mean Corpuscular Volume 95.9 fL (80.0-100.0); Mean Platelet Volume 10.4 fL (9.4-12.4); Platelet Count 163 K/uL (130-400); RDW Coefficient of Variation 13.1 % (11.5-14.5); RDW Standard Deviation 46.3 fL (36.4-46.3); Red Blood Count 3.91 M/uL (4.20-5.40); White Blood Count 7.47 K/ul (4.8-10.8)
[2023-10-16 08:26] LABS: BUN Creatinine Ratio 33.7 (10-20); Calcium 7.3 mg/dl (8.6-10.3); Creatinine Clr Calc Pharmacy 49.6 ml/min; Est GFR (African American) 72.9 ml/min; Est GFR (Non-African American) 62.9 ml/min; Magnesium 1.6 mg/dl (1.7-2.4); Phosphorus 2.5 mg/dl (2.5-4.9); Potassium 3.7 mmol/L (3.5-5.1)
--- NOTE | 2023-10-16 12:53 | Cardiology Consultation ---
Date of Consultation October 16, 2023 Assessment & Plan (1) Bacteremia: (2) Severe sepsis: (3) Confusion: (4) Elevated troponin: (5) Demand ischemia: (6) Abnormal echocardiogram: (7) Premature atrial contractions: (8) Tachy-bob syndrome: (9) Wenckebach: (10) Atrial tachycardia, paroxysmal: (11) HTN (hypertension): Plan Patient asymptomatic in regards to angina or acute decompensated congestive heart failure. EKG on presentation without acute ST segment change. Troponin peaked on 10/13/2023 at 1293.1, downtrending Patient maintaining sinus rhythm, with frequent atrial ectopy. Volume status appears compensated. Abnormal echo and overall clinical picture is that of a stressed induced (Takotsubo) cardiomyopathy occurring in the setting of critical illness/infection. Recommendations: Change metoprolol tartrate 25 mg twice per day to metoprolol succinate 25 mg twice per day Discontinue amlodipine 2.5 mg/day Add low dose ARB (losartan 12.5 mg/day) unless contraindicated from a Urologic standpoint. Hold off on adding neprilysin inhibitor or mineralocorticoid receptor antagonist therapy No need for loop diuretic therapy today (was on indapamide prior to arrival). Continue ASA 81 mg/day and statin (rosuvastatin) Supplement orally potassium and magnesium IV I spent a total of 49 minutes on the date of service in preparation, delivery, and documentation of the care provided to this patient excluding any time spent in the performance of separately billed services. This visit was a split-shared visit with the substantive portion of the medical decision making performed by the supervising drafter commercial/billing provider. Supervising Physician Co-Signing Physician Notes I have personally performed a history and physical examination on the patient. I have reviewed the advance practitioner's documentation, and I agree with, and take responsibility for the plan of care. 82-year-old female with urosepsis and Pseudomonas bacteremia. Poor historian due to metabolic encephalopathy and suspected underlying dementia. Daughter present at bedside to aid with history. Patient denies chest discomfort or shortness of breath. Scant, bilateral basal crackles auscultated on exam although, partially cleared with cough. No wheezing or rhonchi. Subjective complaints of intermittent abdominal discomfort per daughter. Abdominal exam is benign. No peripheral edema. Echocardiogram demonstrating severely reduced LV systolic function with wall motion abnormality suggestive of stress-induced cardiomyopathy (Takotsubo) versus multivessel ischemic heart disease. Patient without anginal symptoms. Recommend addition of beta-sav therapy and discontinuation of amlodipine. Initiate low-dose ARB as noted above. Repeat echocardiogram in 48 to 72 hours for follow-up of left ventricular systolic function/wall motion. Portable chest x-ray ordered due to scant basilar crackles on exam. Repeat ECG. Treatment of underlying sepsis as per hospitalist. Thank you for allow me to participate in the care of your patient. I spent a total of 45 minutes on the date of service in preparation, delivery, and documentation of the care provided to this patient, excluding any time spent in the performance of separately billed services. De Berger DO, [facility] History of Present Illness Reason for Consultation: Ischemic changes versus stress induced cardiomyopathy Requesting Physician: Stewart Mendoza MD Attending Physician: Stewart Mendoza MD History of Present Illness 82 year old female hospitalized in September 2023 with a E. coli UTI, left hydronephrosis, obstructing ureter calculi status post left ureter stenting. Discharged 09/27/2023 Present to the ER on 10/13/2023 with weakness, fatigue, decreased appetite, confusion. Workup revealed a UTI with urine and blood cultures growing Pseudomonas aeruginosa. + Metabolic encephalopathy Resting echocardiography requested by Hospitalist to rule out infectious endocarditis per documentation. Resting echocardiography on October 16, 2023 demonstrated severely reduced LV systolic function, EF 30 to 35%. A large wall motion abnormality involving the mid and apical LV with hypokinesis to akinesis of the segments noted along with sparing of the basal segments, moderate to severe aortic regurgitation. Valvular anatomy suboptimally visualized, without overt evidence of vegetation within the limitations of transthoracic echocardiography. Cardiology consultation requested secondary to the abnormal echo. High-sensitivity troponin elevated as follows: 998.5 -> 1265.7 -> 1293.1 -> 1079.3 pg/mL A single EKG was obtained on October 13, 2023, limited in technical quality, revealing sinus tachycardia at 111 bpm with premature supraventricular complexes, nonspecific T wave abnormality, QTc 497 ms. Patient does not appear to be a reliable source of information, at least at the time of my evaluation. She is alert to person and place but not to time. Patient denies chest pain, shortness of breath, palpitations, dizziness, orthopnea, PND, or peripheral edema. I/Os + 4,949 mL's overall Problem list: Early signs of tachybradycardia syndrome Paroxysmal atrial tachycardia Moderate aortic insufficiency Hypertension Dyslipidemia Hyperparathyroidism, status post parathyroidectomy Prediabetes Stage III chronic kidney disease Peripheral arterial disease Peripheral neuropathy History of tobacco use GERD Recurrent UTIs Bladder tumor Osteoporosis Family History: Mother with uterine cancer. Father with prostate cancer. Social History: Reformed smoker. No alcohol. . Four children. 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 Allergies Allergy/AdvReac Type Severity Reaction Status Date / Time No Known Allergies Allergy Verified 10/07/23 14:28 Home Medications Medication Instructions Recorded Confirmed Type gabapentin 300 mg capsule 600 mg PO QID 05/03/18 10/13/23 History multivitamin 1 tab PO QAM 05/03/18 10/13/23 History omeprazole 20 mg tablet,delayed 20 mg PO BID 05/03/18 10/13/23 History release dorzolamide 22.3 mg-timolol 6.8 1 drp OPB 06/01/18 10/13/23 History mg/mL eye drops (Cosopt) duloxetine 60 mg capsule,delayed 60 mg PO DAILY 06/01/18 10/13/23 History release (Cymbalta) indapamide 2.5 mg tablet 2.5 mg PO DAILY 06/01/18 10/13/23 History latanoprost 0.005 % eye drops 1 drp OPB [facility] 06/01/18 10/13/23 History (Xalatan) aspirin 81 mg tablet,delayed 81 mg PO QAM 06/24/20 10/13/23 History release (Ed Low Dose Aspirin) amlodipine 2.5 mg tablet 2.5 mg PO QAM 09/04/22 10/13/23 History calcitriol 0.5 mcg capsule 1 mcg PO QAM 09/25/23 10/13/23 History metoprolol tartrate 25 mg tablet 25 mg PO [facility] 09/25/23 10/13/23 History rosuvastatin 10 mg tablet 10 mg PO 09/25/23 10/13/23 History oxybutynin chloride 5 mg tablet 5 mg PO Q8H PRN bladder spasms #30 10/07/23 10/13/23 Rx tabs phenazopyridine 100 mg tablet 100 mg PO TID #90 tabs 10/07/23 10/13/23 Rx (Pyridium) tamsulosin 0.4 mg capsule (Flomax) 0.4 mg PO DAILY kidney stone #30 10/07/23 10/13/23 Rx caps latanoprostene bunod 0.024 % eye 1 drp OPB HS 10/13/23 10/13/23 History drops (Vyzulta) magnesium oxide 400 mg (241.3 mg 400 mg PO QAM 10/13/23 10/13/23 History magnesium) tablet (MagOx) tizanidine 2 mg capsule 2 mg PO TID PRN Muscle Spasm 10/13/23 10/13/23 History Patient History Medical History Nephrolithiasis History of hydronephrosis Closed fracture of distal end of right fibula Glaucoma Bilateral tinnitus Chronic pain both feet and legs Neuropathy BOTH FEET AND LEGS Hyperlipidemia H/O parathyroidectomy Surgical History Hx of bilateral cataract extraction Hx of cholecystectomy History of back surgery lower Family History Other Cancer Social History Smoking Status: Never smoker Tobacco Type: Cigarettes Second Hand Exposure: No; Do You Dip or Chew Tobacco: No; Hx Alcohol Use: No Hx Substance Use: No Preferred Language: Welsh Communication Ability: Effective Visual Impairment: No Limitations Hearing Ability: Normal 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 Physical Exam Physical Exam: General: Alert to person and place. NAD. HENT: Normocephalic. Atraumatic. Eyes: PER. Conjunctiva pink, sclera clear. Neck: No JVD. No HJR. Heart: Irregular with an occasional ectopic beat, 74 bpm. Systolic murmur. No diastolic murmur appreciated. Lungs: Decreased breath sounds, left greater than right base. No rales. No wheeze. Abdomen: +BS. Soft. Nontender. No organomegaly. Extremities: No edema. No clubbing. No cyanosis Limited neurological examination: + confusion. no focal deficits. Pulses: Posterior tibial=1/4. Results & Data Vital Signs (Past 12 Hours) Vital Signs Temp Pulse Pulse Resp BP BP Pulse Ox 10/16/23 11:44 36.5 C 83 17 110/70 96 10/16/23 09:55 10/16/23 07:40 36.9 C 109 H 17 108/65 97 10/16/23 07:15 86 10/16/23 04:18 36.7 C 56 L 18 105/64 95 10/16/23 01:01 36.7 C 102 H 20 109/45 L 97 O2 Del Method O2 Flow Rate 10/16/23 11:44 Nasal Cannula 2 10/16/23 09:55 Nasal Cannula 10/16/23 07:40 Nasal Cannula 2 10/16/23 07:15 10/16/23 04:18 Room Air 10/16/23 01:01 Nasal Cannula 2 Laboratory Results CBC 10/16/23 Range/Units 07:55 WBC 7.47 (4.8-10.8) K/ul RBC 3.91 L (4.20-5.40) M/uL Hgb 11.8 L (12.0-16.0) g/dl Hct 37.5 (37.0-47.0) % Plt Count 163 (130-400) K/uL Comprehensive Metabolic Panel 10/16/23 Range/Units 07:55 Sodium 141 (136-145) mmol/L Potassium 3.7 (3.5-5.1) mmol/L Chloride 106 (98-107) mmol/L Carbon Dioxide 30 (21-32) mmol/L BUN 29 H (6-23) mg/dl Creatinine 0.86 (0.6-1.2) mg/dl Glucose 107 H (70-99(Fasting)) mg/dl Calcium 7.3 L (8.6-10.3) mg/dl Intake and Output 10/15/23 10/16/23 10/16/23 22:59 06:59 14:59 Intake Total 270 / 1480.25 150 / 1480.25 Output Total Balance 269 / 1479.25 150 / 1479.25 Intake: Oral 270 / 420 150 / 420 Output: # Bowel Movements Other: # Unmeasured Voids 2 1 Weight 73.4 kg Weight Measurement Method Built in [facility] Diagnostic Findings Telemetry: Sinus, currently 76 bpm. Heart rates predominantly between 7803 bpm. Mobitz type I. Occasional blocked PACs with pauses up to 2.0 seconds in duration.
--- NOTE | 2023-10-16 13:38 | Hospitalist Progress Note ---
Date of Service October 16, 2023 Assessment & Plan (1) Severe sepsis: Plan: 82-year-old lady with PMH of TBS, PAT, HTN, HLD, PAD, neuropathy, hyperparathyroidism s/p parathyroidectomy, GERD, recurrent UTIs, bladder tumor, urolithiasis, prediabetes, past tobacco abuse who was recently admitted in the hospital last month for E. 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 Patient denies abdominal or flank pain or unusual hematuria symptoms. Patient denied chest pain or shortness of breath or cough symptoms. She is being managed for the following: Complicated UTI - Pseudomonas UTI Severe sepsis: Secondary to above. WBC/respiratory rate/heart rate/lactate elevated at presentation. Metabolic encephalopathy Pseudomonas bacteremia Patient presenting with complaint of increasing confusion and weakness. Found to have UTI, has history of recurrent urinary infection, recent stent placement. Admitting CT head with no acute finding. Admitting CTAP: Left nephrostomy catheter with proximal loop in the renal pelvis and distal loop in the urinary bladder noted. Previously demonstrated proximal left ureteral calculus might have passed, as a small calculus in the right posterior aspect of urinary bladder is new. No hydronephrosis or hydroureter. ECHO 10/15 w/ no vegetations. Patient oriented x 3, WBC trended down, continue with cefepime 10/12 evening. Follow admitting blood and urine culture -- Pseudomonas noted. Repeat Bl Cx 10/13 pending. Urology on board, appreciate recommendation. Plan to keep her prior scheduled definitive stone surgery and TURBT on 11/10/23. Per RN, poor intake but improving. Low threshold for IVF. Continue to hold diuretics until PO intake improvement. Hold neuropsychotropic medications for now. ID consult, await recs. Elevated troponin: Likely demand ischemia, patient with no chest pain, EKG with sinus tachycardia, troponin elevation secondary to acute illness. Flat trend. Concern for stress induced CM: ECHO done to ro IE showed concern for stress induced CM vs multivessel ischemic heart disease. c/w tele monitor. monitor and replete electrolytes. pt w/ no chest pain. Cardio consult, await recs. Abdominal pain: pt complaining of upper abd pain (tender on exam), lipase wnl. XR KUB and US GB pending. Pt eating better gradually and moving bowel per rn. No n, v. continue to follow clinically, tums trial. Other chronic medical conditions: Continue with/resume home meds as and when able. moderate AR (TTE 2022)/early TBS as per records/PAT, patient follows with [facility] Cardiology hypertension, BP fairly stable. hyperlipidemia, on statin Rx PAD hx neuropathy on gabapentin hyperparathyroidism status post parathyroidectomy prediabetes, hemoglobin A1c of 6.14 Aug 2023 past tobacco abuse DVT prophylaxis. Lovenox subcu Full code Patient daughters Ms. Ann-Marie Rivera, contact #[phone]. Ms. Breonna Rivera, contact #[phone]. Dtr ann-marie was updated via phone 10/13, answered all her questions. She voiced understanding and was agreeable to plan of care. Pt's dtr ann-marie was udpated at bedside during second visit on 10/14. Answered all her questions. Pt's dtr ann-marie given a phone call 10/15 for update on the patient, left voicemail to call us back. Text document was generated using Sv[employer] voice recognition software. It may contain grammatical or spelling errors. Kindly contact undersigned for clarification of any documentation item in question. Admission and Anticipated Discharge Date Admission Date: October 13, 2023 Subjective Patient was seen and examined at bedside. Patient was lying in bed, on 2 L oxygen via nasal cannula, oriented but looks tired. Patient denies chest pain, denies any discomfort. Pt reports some belly pain, denies reflux, some tender on abdomen exam, lipase obtained wnl, xr kub and US GB pending. pt eating and moving bowel per rn, no n, v. Per RN, pt w/ improving appetite, moved bowel yesterday and no new acute events overnight. Physical Exam Physical Exam: GENERAL: Oriented, no respiratory distress, on 2L NC O2 SKIN: Normal color, warm HEENT:pink palpebral conjunctivae, no ptosis, moist buccal mucosa, nasal cannula in place NECK : Supple, short, no tenderness CHEST : CTA, no tenderness HEART : RRR, diastolic murmur, ABDOMEN: Some distention, tender upper belly EXTREMITIES : Minimal LE swelling, no tenderness,, no other conspicuous deformities noted NEUROLOGIC : Disoriented, no facial asymmetry, no other gross focality Results & Data Results & Data Vital Signs (Past 12 Hours) Vital Signs Temp Pulse Pulse Resp BP BP Pulse Ox 10/16/23 11:44 36.5 C 83 17 110/70 96 10/16/23 09:55 10/16/23 07:40 36.9 C 109 H 17 108/65 97 10/16/23 07:15 86 10/16/23 04:18 36.7 C 56 L 18 105/64 95 O2 Del Method O2 Flow Rate 10/16/23 11:44 Nasal Cannula 2 10/16/23 09:55 Nasal Cannula 10/16/23 07:40 Nasal Cannula 2 10/16/23 07:15 10/16/23 04:18 Room Air
--- NOTE | 2023-10-16 14:59 | Infectious Disease Consult ---
Date of Service October 16, 2023 Telehealth Information I performed this visit using a real-time telehealth connection between my location and the patients location ([facility]). After connecting through interactive tele-video, patient was identified by name and date of and/or wristband check.Patient (or authorized healthcare member service representative) was informed that this was a telemedicine visit and it was being conducted confidentially over secure lines. My office door was closed and no one else was present in the room with me.Patient (or authorized healthcare member service representative) provided consent to proceed with the visit, expressed an understanding of privacy and security of the telemedicine visit, and gave permission to have a hospital member service representative in the room in order to assist with the visit and to conduct portions of the visit, as needed. I informed the patient (or authorized healthcare member service representative) that I reviewed their record and presented the opportunity for them to ask any questions regarding the visit today. The patient agreed to participate. Assessment & Plan (1) Gram-negative bacteremia: Plan: Assessment: Pseudomonas bacteremia Complicated UTI Recent UTI w/ L ureteral stone and hydronephrosis L ureteral stent (08/2023) Plan: - Consider Cipro 500 mg po bid (CrCl 49) x total 7 days (last dose on 10/20/23) if she is able to tolerate it: QT interval is close to 500 ms. QT prolongation is a possible side effect of Cipro. - Otherwise, continue cefepime 2 gm iv q12 hours for total 7 days (last dose on 10/20/23) - I wonder if the existing ureteral stent needs to be removed or exchanged for possible colonization. I defer the decision to . - ID signing off. More than 50% of [id number] visit was spent counseling and coordinating care pertaining to the patient's infection diagnosis, additional work-up, and treatment option(s) as well as potential adverse events of the treatment. (2) Complicated UTI (urinary tract infection): History of Present Illness History of Present Illness This is an 82 y/o female ([place]) w/ hx of moderate AR (TTE 2022), early TBS as per records, PAT, hypertension, hyperlipidemia, PAD, neuropathy, hyperparathyroidism status post parathyroidectomy, GERD, recurrent UTIs, bladder tumor, and urolithiasis. The patient had E coli UTI in the setting of L ureteral stone and hydronephrosis last month, requiring L ureteral stent insertion. is planning on TURBT on 11/10/23. The patient, however, presented to [facility] on 10/13/23 for worsening generalized weakness and confusion. She was noted to sepsis w/ fever, leukocytosis, tachypnea and tachycardia on presentation w/ pyuria (urine culture growing PSA). CT showed Interval placement of a left nephrostomy catheter with the proximal loop in the renal pelvis and distal loop in the urinary bladder. Previously demonstrated proximal left ureteral calculus was no longer identified the ureter. There was a small calculus in the right posterior aspect of the urinary bladder not present on the prior study likely a passed calculus. She is currently on cefepime. She states that her stomach bothers her w/ diffuse, intermittent, abd pain. No n/v or diarrhea or an other symptoms but she is a poor historian. Ann-Marie, her daughter, was at bedside, assisting during the encounter. Allergies Allergy/AdvReac Type Severity Reaction Status Date / Time No Known Allergies Allergy Verified 10/07/23 14:28 Home Medications Medication Instructions Recorded Confirmed Type gabapentin 300 mg capsule 600 mg PO QID 05/03/18 10/13/23 History multivitamin 1 tab PO QAM 05/03/18 10/13/23 History omeprazole 20 mg tablet,delayed 20 mg PO BID 05/03/18 10/13/23 History release dorzolamide 22.3 mg-timolol 6.8 1 drp OPB 06/01/18 10/13/23 History mg/mL eye drops (Cosopt) duloxetine 60 mg capsule,delayed 60 mg PO DAILY 06/01/18 10/13/23 History release (Cymbalta) indapamide 2.5 mg tablet 2.5 mg PO DAILY 06/01/18 10/13/23 History latanoprost 0.005 % eye drops 1 drp OPB [facility] 06/01/18 10/13/23 History (Xalatan) aspirin 81 mg tablet,delayed 81 mg PO QAM 06/24/20 10/13/23 History release (Ed Low Dose Aspirin) amlodipine 2.5 mg tablet 2.5 mg PO QAM 09/04/22 10/13/23 History calcitriol 0.5 mcg capsule 1 mcg PO QAM 09/25/23 10/13/23 History metoprolol tartrate 25 mg tablet 25 mg PO AMHS 09/25/23 10/13/23 History rosuvastatin 10 mg tablet 10 mg PO HS 09/25/23 10/13/23 History oxybutynin chloride 5 mg tablet 5 mg PO Q8H PRN bladder spasms #30 10/07/23 10/13/23 Rx tabs phenazopyridine 100 mg tablet 100 mg PO TID #90 tabs 10/07/23 10/13/23 Rx (Pyridium) tamsulosin 0.4 mg capsule (Flomax) 0.4 mg PO DAILY kidney stone #30 10/07/23 10/13/23 Rx caps latanoprostene bunod 0.024 % eye 1 drp OPB HS 10/13/23 10/13/23 History drops (Vyzulta) magnesium oxide 400 mg (241.3 mg 400 mg PO QAM 10/13/23 10/13/23 History magnesium) tablet (MagOx) tizanidine 2 mg capsule 2 mg PO TID PRN Muscle Spasm 10/13/23 10/13/23 History Patient History Medical History Nephrolithiasis History of hydronephrosis Closed fracture of distal end of right fibula Glaucoma Bilateral tinnitus Chronic pain both feet and legs Neuropathy BOTH FEET AND LEGS Hyperlipidemia H/O parathyroidectomy Surgical History Hx of bilateral cataract extraction Hx of cholecystectomy History of back surgery lower Family History Other Cancer Social History Smoking Status: Never smoker Tobacco Type: Cigarettes Second Hand Exposure: No; Do You Dip or Chew Tobacco: No; Hx Alcohol Use: No Hx Substance Use: No Preferred Language: Congolese Communication Ability: Effective Visual Impairment: No Limitations Hearing Ability: Normal Manager Science Required: No Beliefs That Will Affect Care: None marital status: / Current Living Situation: Family Current Living Situation Comment: lives with daughter How many Children do You have: 2 Other Information That Helps Us Care for You: No Feels Safe at Home: Yes Assistive Devices: Glasses, Raised Toilet Seat and Walker Review of Systems as HPI and all others negative Physical Exam Gen: no acute distress Lungs: breathing comfortably in bed Results & Data Vital Signs (Past 12 Hours) Vital Signs Temp Pulse Pulse Resp BP BP Pulse Ox 10/16/23 11:44 36.5 C 83 17 110/70 96 10/16/23 09:55 10/16/23 07:40 36.9 C 109 H 17 108/65 97 10/16/23 07:15 86 10/16/23 04:18 36.7 C 56 L 18 105/64 95 O2 Del Method O2 Flow Rate 10/16/23 11:44 Nasal Cannula 2 10/16/23 09:55 Nasal Cannula 10/16/23 07:40 Nasal Cannula 2 10/16/23 07:15 10/16/23 04:18 Room Air Laboratory Results WBC 14K ->-> 7.47K H 11.8 Plt 163K Cr 0.86 (CrCl 49.6) CT A/P (10/12): Interval placement of a left nephrostomy catheter with the proximal loop in the renal pelvis and distal loop in the urinary bladder. Previously demonstrated proximal left ureteral calculus is no longer identified the ureter. There is a small calculus in the right posterior aspect of the urinary bladder not present on the prior study likely a passed calculus. No hydronephrosis or hydroureter. QTc Int : 497 ms Diagnostic Findings UA (10/12): pos nit, 2+ LE U cx (10/12): PSA Blood cx (10/12): PSA (2 of 4: hernandez S) Blood cx (10/13): NGTD Medications Administered Cefepime
--- NOTE | 2023-10-16 15:15 | XRay Report ---
XR chest 1V not portable CLINICAL HISTORY: Reduced left ventricular ejection fraction. COMPARISON STUDY: Chest CT September 04, 2022. Chest radiograph October 13, 2023. FINDINGS: Low lung volumes are unchanged. There is no pneumothorax. There is a trace right pleural ef fusion. Bibasilar densities are unchanged and favor atelectasis. There is no consolidation to suggest pneumonia. Asymmetric attenuation of the right lung is likely related to overlying soft tissues. Car diac mediastinal fluid is stable. No evidence for pulmonary edema. IMPRESSION: 1. No radiographic evidence for pulmonary edema. 2. Bibasilar densities suggestive of atelectasis. 3. Trace right pleural effusion. ACT 112: Negative or not required by law. Electronically signed by: Kevin Marvin M.D. 10/16/2023 3:13 PM
[2023-10-16] MEDS: POTASSIUM CHLORIDE CRTAB 20 MEQ TABCR PO ONE (15:24)
[2023-10-16] MEDS: CALCIUM CARBONATE 500 MG CHEWABLE TAB PO SCH (15:25)
[2023-10-16] MEDS: ACETAMINOPHEN 325 MG TAB PO PRN (15:31)
[2023-10-16] MEDS: MAGNESIUM SULFATE / D5W 1 GM/100 ML BAG IV SCH (15:32)
--- NOTE | 2023-10-16 15:43 | XRay Report ---
XR KUB/Abdomen 1 view CLINICAL HISTORY: abd pain TECHNIQUE: 1 view of the abdomen was obtained. Comparison: Comparison is made to abdomen radiograph 09/16/2022 FINDINGS: Left ureteral stent is seen. Degenerative changes are seen in the visualized skeleton. The bowel gas pattern is nonobstructive. A moderate amount of stool is noted within the large bowel. IMPRESSION: Nonobstructive bowel gas pattern. ACT 112: Negative or not required by law. Electronically signed by: Wander Estevez M.D. 10/16/2023 3:40 PM
[2023-10-16] MEDS: PIPER/TAZO 4.5g in D5W MINI-B 100 ML IV STA (15:49)
--- NOTE | 2023-10-16 15:49 | Ultrasound Report ---
US gallbladder CLINICAL HISTORY: upper belly pain/ruq pain TECHNIQUE: Multiple real-time sonographic images of the right upper quadrant were obtained. Comparison: Comparison is made to CT abdomen pelvis 10/13/2023 FINDINGS: The liver is diffusely homogenous with normal contour and echogenicity. No focal mass lesions are see n. No intrahepatic ductal dilatation is seen. Patient is status post cholecystectomy. The common duct measures 0.8 cm in diameter at the level of the hepatic artery. The visualized portions of the pancreas appear normal. The right kidney shows normal echogenicity, cortical thickness and renal contour. The right kidney sh ows no evidence of hydronephrosis or mass. No ascites or free fluid is seen in Nicole's pouch. IMPRESSION: Unremarkable right upper quadrant ultrasound. Status post cholecystectomy. ACT 112: Negative or not required by law. Electronically signed by: Wander Estevez M.D. 10/16/2023 3:48 PM
[2023-10-16] MEDS: METOPROLOL SUCC 25MG EXT REL TAB PO SCH (20:47)
[2023-10-16] MEDS: PIPER/TAZO 4.5g in D5W MINI-B 100 ML IV SCH (20:48)
[2023-10-17 07:16] LABS: Hematocrit (blood only) 36.2 % (37.0-47.0); Hemoglobin 11.3 g/dl (12.0-16.0); Mean Corpuscular Hemoglobin 29.9 pg (25.0-34.0); Mean Corpuscular Hgb Conc 31.2 g/dL (32.0-36.0); Mean Corpuscular Volume 95.8 fL (80.0-100.0); Mean Platelet Volume 10.9 fL (9.4-12.4); Nucleated RBC # (auto) 0.02 K/uL (0.00-0.12); Nucleated RBC % (auto) 0.3 %; Platelet Count 178 K/uL (130-400); RDW Coefficient of Variation 12.6 % (11.5-14.5); RDW Standard Deviation 44.7 fL (36.4-46.3); Red Blood Count 3.78 M/uL (4.20-5.40); White Blood Count 6.54 K/ul (4.8-10.8)
[2023-10-17 07:28] LABS: BUN Creatinine Ratio 26.1 (10-20); Calcium 7.1 mg/dl (8.6-10.3); Creatinine Clr Calc Pharmacy 46.2 ml/min; Est GFR (African American) 67.2 ml/min; Magnesium 2.1 mg/dl (1.7-2.4); Phosphorus 2.5 mg/dl (2.5-4.9); Potassium 3.6 mmol/L (3.5-5.1)
--- NOTE | 2023-10-17 08:18 | Cardiology Progress Note ---
<Statement entered by Deloris Cutler, - 10/17/23 12:11> I have reviewed the advanced practitioner's documentation and agree with the plan of care. I accept the responsibility for the associated risk. Pt seen in cardiology f/u due to Takotsubo cardiomyopathy in the setting of sepsis from PNA?UTI her grandchildren were at the bedside when i saw pt she is euvolmic on exam continue the toprol and losartan for GDMT echo thursday to reassess EF Otherwise stable from cardiac perspective will need outpt f/u in our office please re-consult as necessary Dr. Cutler Date of Service October 17, 2023 Assessment & Plan (1) Bacteremia: (2) Severe sepsis: (3) Confusion: (4) Elevated troponin: (5) Demand ischemia: (6) Abnormal echocardiogram: (7) Premature atrial contractions: (8) Tachy-bob syndrome: (9) Wenckebach: (10) Atrial tachycardia, paroxysmal: (11) HTN (hypertension): Plan 82-year-old female admitted with complicated UTI, metabolic encephalopathy, and Pseudomonas bacteremia following August left ureter stenting for UTI with left ureter stone and hydronephrosis Cardiology consultation requested due to abnormal resting echocardiography on October 15, 2023 demonstrating severely reduced LV systolic function, EF 30 to 35%, with large wall motion abnormality involving the mid and apical LV with hypokinesis to akinesis of the segments, sparing of the basal segments, moderate to severe aortic regurgitation. Patient asymptomatic in regards to angina or acute decompensated congestive heart failure. EKG on presentation without acute ST segment change. Troponin peaked on 10/13/2023 at 1293.1, downtrending. Patient maintaining sinus rhythm, with frequent atrial ectopy. Volume status appears compensated. Chest x-ray without pulmonary edema. Abnormal echo and overall clinical picture is that of a stressed induced (Takotsubo) cardiomyopathy occurring in the setting of critical illness/infection. Recommendations: 1. Continue as prescribed. 2. Metoprolol tartrate changed to metoprolol succinate 25 mg twice per day this admission 3. Amlodipine 2.5 mg/day discontinued to allow for the addition of low dose ARB (losartan 12.5 mg/day) 4. Hold off on adding neprilysin inhibitor or mineralocorticoid receptor antagonist therapy 5. No need for loop diuretic therapy today (was on indapamide prior to arrival). 6. Continue ASA 81 mg/day and statin (rosuvastatin) 7. Supplement potassium orally 8. Repeat resting echocardiography Thursday. I spent a total of 24 minutes on the date of service in preparation, delivery, and documentation of the care provided to this patient excluding any time spent in the performance of separately billed services. This visit was a split-shared visit with the substantive portion of the medical decision making performed by the supervising registered nurse bone marrow transplant/billing provider. Admission and Anticipated Discharge Date Admission Date: October 13, 2023 Subjective Patient seen and examined. Chart, medications, telemetry reviewed. No complaints or concerns. Denies chest pain, palpitations, or shortness of breath. Review of Systems Review of Systems: Unable to be obtained, metabolic encephalopathy, suspected dementia. Physical Exam Physical Exam: General: NAD. HENT: Normocephalic. Atraumatic. Eyes: PER. Conjunctiva pink, sclera clear. Neck: No JVD. No HJR. Heart: Regular at 70 bpm. Systolic murmur. No diastolic murmur appreciated. Lungs: Dry bibasilar rales. No wheeze. Abdomen: +BS. Soft. Nontender. No organomegaly. Extremities: No edema. No clubbing. No cyanosis Limited neurological examination: No focal deficits. Pulses: Posterior tibial=1/4. Results & Data Vital Signs (Past 12 Hours) Vital Signs Temp Pulse Pulse Resp BP BP Pulse Ox 10/17/23 07:58 36.5 C 99 H 18 124/71 97 10/17/23 07:10 62 10/17/23 03:34 36.6 C 97 H 18 106/69 96 10/17/23 02:05 10/17/23 02:04 77 10/16/23 22:21 36.5 C 86 18 101/63 96 O2 Del Method O2 Flow Rate 10/17/23 07:58 Nasal Cannula 2 10/17/23 07:10 10/17/23 03:34 Nasal Cannula 3 10/17/23 02:05 Nasal Cannula 2 10/17/23 02:04 10/16/23 22:21 Nasal Cannula 3 Laboratory Results CBC 10/17/23 Range/Units 06:22 WBC 6.54 (4.8-10.8) K/ul RBC 3.78 L (4.20-5.40) M/uL Hgb 11.3 L (12.0-16.0) g/dl Hct 36.2 L (37.0-47.0) % Plt Count 178 (130-400) K/uL Comprehensive Metabolic Panel 10/16/23 10/17/23 Range/Units 07:55 06:22 Sodium 141 139 (136-145) mmol/L Potassium 3.7 3.6 (3.5-5.1) mmol/L Chloride 106 103 (98-107) mmol/L Carbon Dioxide 30 31 (21-32) mmol/L BUN 29 H 24 H (6-23) mg/dl Creatinine 0.86 0.92 (0.6-1.2) mg/dl Glucose 107 H 110 H (70-99(Fasting)) mg/dl Calcium 7.3 L 7.1 L (8.6-10.3) mg/dl Intake and Output 10/16/23 10/17/23 10/17/23 22:59 06:59 14:59 Intake Total 300.0 / 400.0 100 / 400.0 Output Total 350 / 800 250 / 800 Balance -50.0 / -400.0 -150 / -400.0 Intake: IV 300.0 / 400.0 100 / 400.0 Magnesium Sulfate / D5w 1 gm In 200.0 / 200.0 100 ml @ 50 mls/hr IV Q2H [facility] Rx#:[id number] Piperacillin/Tazobactam 4.5 gm 100 / 200 100 / 200 In Dextrose 5% Mini-B 100 ml @ 25 mls/hr IV Q8H [facility] Rx#: [id number] Output: Urine Amount (Catheter) 350 / 800 250 / 800 External 350 / 800 250 / 800 Other: Other Intake Source SIPS SIPS Weight 73 kg Weight Measurement Method Built in [facility] Diagnostic Findings EKG on October 16, 2023 revealed sinus rhythm at 71 bpm with premature atrial complexes, low voltage QRS, QTc 467 ms. Telemetry: Sinus rhythm throughout with heart rates ranging from 58 to 100 bpm, with occasional premature atrial complexes. No significant pauses. No atrial fibrillation.
--- NOTE | 2023-10-17 08:52 | Electrocardiogram Report ---
Test Reason : Blood Pressure : / mmHG Vent. Rate : 071 BPM Atrial Rate : 096 BPM P-R Int : 180 ms QRS Dur : 088 ms QT Int : 430 ms P-R-T Axes : 039 016 103 degrees QTc Int : 467 ms Sinus rhythm with Premature atrial complexes Low voltage QRS Cannot rule out Anterior infarct , age undetermined T-wave inversion in Anterior leads , consider ischemia Abnormal ECG When compared with ECG of 13-OCT-2023 16:27, Vent. rate has decreased BY 40 BPM Non-specific change in ST segment in Anterior leads T wave inversion more evident in Anterior leads Confirmed by Ralph Bond ([id number]) on 10/17/2023 8:52:21 AM Referred By: REFERRED SELF Confirmed By:Ralph Bond
[2023-10-17] MEDS: POTASSIUM CHLORIDE 10 MEQ TABCR PO ONE (09:25)
[2023-10-17] MEDS: LOSARTAN POTASSIUM 25 MG TAB PO SCH (09:25)
--- NOTE | 2023-10-17 11:46 | Hospitalist Progress Note ---
Date of Service October 17, 2023 Assessment & Plan (1) Severe sepsis: Plan: 82-year-old lady with PMH of TBS, PAT, HTN, HLD, PAD, neuropathy, hyperparathyroidism s/p parathyroidectomy, GERD, recurrent UTIs, bladder tumor, urolithiasis, prediabetes, past tobacco abuse who was recently admitted in the hospital last month for E. coli UTI in the setting of left ureteral stone causing hydronephrosis [underwent cystoscopy and left ureteral stent insertion, superficial bladder mass noted on cystoscopy] and was treated with antibiotic with a contemplation of repeat cystoscopy/left ureteroscopy/TURBT for November 10, 2023 presented to the ED 10/12 with complaint of increasingly weak and confusion for 1 day [employer]. Patient denies abdominal or flank pain or unusual hematuria symptoms. Patient denied chest pain or shortness of breath or cough symptoms. She is being managed for the following: Complicated UTI Severe sepsis: Secondary to above. Acute Metabolic encephalopathy--resolved H/O recent ureteral stent placement Pseudomonas bacteremia Patient presenting with complaint of increasing confusion and weakness. --CT head:No acute intracranial abnormality. --CT ABD:Interval placement of a left nephrostomy catheter with the proximal loop in the renal pelvis and distal loop in the urinary bladder. Previously demonstrated proximal left ureteral calculus is no longer identified the ureter. There is a small calculus in the right posterior aspect of the urinary bladder not present on the prior study likely a passed calculus. No hydronephrosis or hydroureter. -- Blood culture from 10/13/2023 grew Pseudomonas -- Urine culture grew Pseudomonas, Enterococcus faecalis --Repeat blood cultures from 10/14/2023: No growth to date -- Mental status back to baseline --Was on IV cefepime>> transition to IV Zosyn -- Appreciate ID, Urology input -- Plan to keep her prior scheduled definitive stone surgery and TURBT on 11/10/23. Resume home neuropsychotropic medications as able Stress-induced cardiomyopathy --ECHO: Left ventricle systolic function is severely reduced. EF 30 to 35%. Large wall motion abnormality involving the mid and apical LV with hypokinesis to akinesis of the segments. Sparing of the basal segments. Findings suggest multivessel ischemic heart disease versus stress-induced cardiomyopathy. Moderate to severe aortic regurgitation. Suboptimally visualized valvular anatomy without evidence of vegetation within the limitations of this imaging modality. --Metoprolol tartrate changed to metoprolol succinate 25 mg twice daily Amlodipine discontinued. Started on losartan 12.5 mg daily Continue aspirin 81 mg daily, statin Appreciate cardiology input Will need to repeat echo on Thursday. Elevated troponin: Likely demand ischemia Monitor Abdominal pain: Imaging studies not contributory LFTs within normal limits Lipase normal Resolved Monitor Other chronic medical conditions: Continue with/resume home meds as and when able. Moderate AR (TTE 2022)/early TBS as per records/PAT, patient follows with [facility] Hypertension, stable. Continue current medications Hyperlipidemia, continue Crestor H/O Neuropathy on gabapentin--resume as able Hyperparathyroidism S/P parathyroidectomy Prediabetes, Hb A1c of 6.14 Aug 2023 Past tobacco abuse DVT Px: Lovenox SQ Code Status Full code Admission and Anticipated Discharge Date Admission Date: October 13, 2023 Subjective Patient is seen and examined at bedside Abdominal pain resolved Offers no new complaints today RN noted some difficulty with swallowing today Patient denies any chest pain, dyspnea, nausea, dizziness Review of Systems Review of Systems: All systems reviewed & are unremarkable except as noted in Subjective Physical Exam Physical Exam: Physical Exam: Vitals signs as noted above General Appearance:Frail, elderly, no apparent distress Head: normocephalic, Atraumatic Eyes: normal inspection, EOMI Neck: supple, Trachea midline Respiratory/Chest: Normal breath sounds, CTA, No accessory muscle use Cardiovascular: S1, S2, +murmur Abdomen/GI:Soft, Non tender, Bowel sounds present Extremities/Musculoskeletal:normal inspection, no edema Neurologic/Psych:AAOX3, grossly no focal neurological deficits Skin: normal color, warm Results & Data Results & Data Vital Signs (Past 12 Hours) Vital Signs Temp Pulse Pulse Resp BP BP Pulse Ox 10/17/23 09:38 10/17/23 07:58 36.5 C 99 H 18 124/71 97 10/17/23 07:10 62 10/17/23 03:34 36.6 C 97 H 18 106/69 96 10/17/23 02:05 10/17/23 02:04 77 O2 Del Method O2 Flow Rate 10/17/23 09:38 Nasal Cannula 2 10/17/23 07:58 Nasal Cannula 2 10/17/23 07:10 10/17/23 03:34 Nasal Cannula 3 10/17/23 02:05 Nasal Cannula 2 10/17/23 02:04 Laboratory Results Short CBC 10/17/23 Range/Units 06:22 WBC 6.54 (4.8-10.8) K/ul Hgb 11.3 L (12.0-16.0) g/dl Hct 36.2 L (37.0-47.0) % Plt Count 178 (130-400) K/uL BMP 10/17/23 06:22 Sodium 139 Potassium 3.6 Chloride 103 Carbon Dioxide 31 BUN 24 H Creatinine 0.92 Glucose 110 H Calcium 7.1 L
[2023-10-18 08:38] LABS: BUN Creatinine Ratio 26.4 (10-20); Calcium 7.3 mg/dl (8.6-10.3); Est GFR (African American) 71.9 ml/min; Potassium 3.5 mmol/L (3.5-5.1)
--- NOTE | 2023-10-18 13:02 | Hospitalist Progress Note ---
Date of Service October 18, 2023 Assessment & Plan (1) Severe sepsis: Plan: 82-year-old lady with PMH of TBS, PAT, HTN, HLD, PAD, neuropathy, hyperparathyroidism s/p parathyroidectomy, GERD, recurrent UTIs, bladder tumor, urolithiasis, prediabetes, past tobacco abuse who was recently admitted in the hospital last month for E. coli UTI in the setting of left ureteral stone causing hydronephrosis [underwent cystoscopy and left ureteral stent insertion, superficial bladder mass noted on cystoscopy] and was treated with antibiotic with a contemplation of repeat cystoscopy/left ureteroscopy/TURBT for November 10, 2023 presented to the ED 10/12 with complaint of increasingly weak and confusion for 1 day JOINER. Patient denies abdominal or flank pain or unusual hematuria symptoms. Patient denied chest pain or shortness of breath or cough symptoms. She is being managed for the following: Complicated UTI Severe sepsis: Secondary to above. Acute Metabolic encephalopathy--resolved H/O recent ureteral stent placement Pseudomonas bacteremia Patient presenting with complaint of increasing confusion and weakness. Physical deconditioning due to above --CT head:No acute intracranial abnormality. --CT ABD:Interval placement of a left nephrostomy catheter with the proximal loop in the renal pelvis and distal loop in the urinary bladder. Previously demonstrated proximal left ureteral calculus is no longer identified the ureter. There is a small calculus in the right posterior aspect of the urinary bladder not present on the prior study likely a passed calculus. No hydronephrosis or hydroureter. -- Blood culture from 10/13/2023 grew Pseudomonas -- Urine culture grew Pseudomonas, Enterococcus faecalis --Repeat blood cultures from 10/14/2023: No growth to date -- Mental status back to baseline --Was on IV cefepime>> transition to IV Zosyn -- Appreciate ID, Urology input -- Plan to keep her prior scheduled definitive stone surgery and TURBT on 11/10/23. Resume home neuropsychotropic medications as able Will complete IV antibiotic course on 10/20/2023 Continue PT OT while hospitalized Stress-induced cardiomyopathy --ECHO: Left ventricle systolic function is severely reduced. EF 30 to 35%. Large wall motion abnormality involving the mid and apical LV with hypokinesis to akinesis of the segments. Sparing of the basal segments. Findings suggest multivessel ischemic heart disease versus stress-induced cardiomyopathy. Moderate to severe aortic regurgitation. Suboptimally visualized valvular anatomy without evidence of vegetation within the limitations of this imaging modality. --Metoprolol tartrate changed to metoprolol succinate 25 mg twice daily Amlodipine discontinued. Started on losartan 12.5 mg daily Continue aspirin 81 mg daily, statin Appreciate cardiology input Will need to repeat echo on Thursday. Elevated troponin: Likely demand ischemia Monitor Abdominal pain: Imaging studies not contributory LFTs within normal limits Lipase normal Resolved Monitor Other chronic medical conditions: Continue with/resume home meds as and when able. Moderate AR (TTE 2022)/early TBS as per records/PAT, patient follows with [facility] [place] [facility] Hypertension, stable. Continue current medications Hyperlipidemia, continue Crestor H/O Neuropathy on gabapentin--resume as able. Currently denies any neuropathic pain Hyperparathyroidism S/P parathyroidectomy, chronic hypocalcemia-- continue calcitriol, calcium supplement Prediabetes, Hb A1c of 6.14 Aug 2023 Past tobacco abuse DVT Px: Lovenox SQ Code Status Full code Admission and Anticipated Discharge Date Admission Date: October 13, 2023 Subjective Patient is seen and examined at bedside Reported some abdominal discomfort this morning to RN, resolved after having bowel movement today Sitting in chair during my encounter States having generalized weakness Poor sleep overnight No other complaints today Patient denies any chest pain, dyspnea, nausea, dizziness Review of Systems Review of Systems: All systems reviewed & are unremarkable except as noted in Subjective Physical Exam Physical Exam: Physical Exam: Vitals signs as noted above General Appearance:Frail, elderly, no apparent distress Head: normocephalic, Atraumatic Eyes: normal inspection, EOMI Neck: supple, Trachea midline Respiratory/Chest: Normal breath sounds, CTA, No accessory muscle use Cardiovascular: S1, S2, +murmur Abdomen/GI:Soft, Non tender, Bowel sounds present Extremities/Musculoskeletal:normal inspection, no edema Neurologic/Psych:AAOX3, grossly no focal neurological deficits Skin: normal color, warm Results & Data Results & Data Vital Signs (Past 12 Hours) Vital Signs Temp Pulse Pulse Resp BP Pulse Ox O2 Del Method 10/18/23 10:00 Nasal Cannula 10/18/23 08:37 36.8 C 108 H 16 119/67 92 Nasal Cannula 10/18/23 07:41 91 H 10/18/23 04:00 36.9 C 79 18 101/59 L 92 Nasal Cannula O2 Flow Rate 10/18/23 10:00 2 10/18/23 08:37 3 10/18/23 07:41 10/18/23 04:00 2 Laboratory Results BMP 10/18/23 07:24 Sodium 140 Potassium 3.5 Chloride 104 Carbon Dioxide 31 BUN 23 Creatinine 0.87 Glucose 125 H Calcium 7.3 L
[2023-10-18] MEDS: CALCIUM GLUCONATE 1,000 MG/60 ML BAG IV ONE (16:20)
[2023-10-19 09:02] LABS: Hematocrit (blood only) 34.6 % (37.0-47.0); Hemoglobin 10.8 g/dl (12.0-16.0); Mean Corpuscular Hgb Conc 31.2 g/dL (32.0-36.0); Mean Corpuscular Volume 96.1 fL (80.0-100.0); Mean Platelet Volume 10.5 fL (9.4-12.4); Platelet Count 201 K/uL (130-400); RDW Coefficient of Variation 12.8 % (11.5-14.5); RDW Standard Deviation 45.1 fL (36.4-46.3); White Blood Count 8.06 K/ul (4.8-10.8)
[2023-10-19 09:18] LABS: BUN Creatinine Ratio 22.5 (10-20); Calcium 7.6 mg/dl (8.6-10.3); Creatinine Clr Calc Pharmacy 47.7 ml/min; Est GFR (Non-African American) 60.4 ml/min; Magnesium 1.6 mg/dl (1.7-2.4); Potassium 3.5 mmol/L (3.5-5.1); Prealbumin 13.9 mg/dl (20-40)
--- NOTE | 2023-10-19 13:30 | Hospitalist Progress Note ---
Date of Service October 19, 2023 Assessment & Plan (1) Severe sepsis: Plan: 82-year-old lady with PMH of TBS, PAT, HTN, HLD, PAD, neuropathy, hyperparathyroidism s/p parathyroidectomy, GERD, recurrent UTIs, bladder tumor, urolithiasis, prediabetes, past tobacco abuse who was recently admitted in the hospital last month for E. coli UTI in the setting of left ureteral stone causing hydronephrosis [underwent cystoscopy and left ureteral stent insertion, superficial bladder mass noted on cystoscopy] and was treated with antibiotic with a contemplation of repeat cystoscopy/left ureteroscopy/TURBT for November 10, 2023 presented to the ED 10/12 with complaint of increasingly weak and confusion for 1 day CIRCUS HAND. Patient denies abdominal or flank pain or unusual hematuria symptoms. Patient denied chest pain or shortness of breath or cough symptoms. She is being managed for the following: Complicated UTI Severe sepsis: Secondary to above. Acute Metabolic encephalopathy--resolved H/O recent ureteral stent placement Pseudomonas bacteremia Patient presenting with complaint of increasing confusion and weakness. Physical deconditioning due to above --CT head:No acute intracranial abnormality. --CT ABD:Interval placement of a left nephrostomy catheter with the proximal loop in the renal pelvis and distal loop in the urinary bladder. Previously demonstrated proximal left ureteral calculus is no longer identified the ureter. There is a small calculus in the right posterior aspect of the urinary bladder not present on the prior study likely a passed calculus. No hydronephrosis or hydroureter. -- Blood culture from 10/13/2023 grew Pseudomonas -- Urine culture grew Pseudomonas, Enterococcus faecalis --Repeat blood cultures from 10/14/2023: No growth to date Will complete IV antibiotic course on 10/20/2023 Continue PT OT while hospitalized Reached out to urology regarding exchange/removal of stent as per infectious disease recommendation. Awaiting to hear back. Resume home neuropsychotropic medications as able Stress-induced cardiomyopathy --ECHO on 10/16/2023 : Left ventricle systolic function is severely reduced. EF 30 to 35%. Large wall motion abnormality involving the mid and apical LV with hypokinesis to akinesis of the segments. Sparing of the basal segments. Findings suggest multivessel ischemic heart disease versus stress-induced cardiomyopathy. Moderate to severe aortic regurgitation. Suboptimally visualized valvular anatomy without evidence of vegetation within the limitations of this imaging modality. --Metoprolol tartrate changed to metoprolol succinate 25 mg twice daily Amlodipine discontinued. Started on losartan 12.5 mg daily Continue aspirin 81 mg daily, statin Repeat echocardiogram on 10/18 shows improvement in systolic function and wall motion abnormalities. Elevated troponin: Likely demand ischemia Monitor Abdominal pain: Imaging studies not contributory LFTs within normal limits Lipase normal Resolved Monitor Other chronic medical conditions: Continue with/resume home meds as and when able. Moderate AR (TTE 2022)/early TBS as per records/PAT, patient [place] [facility] [place] [facility] Hypertension, stable. Continue current medications Hyperlipidemia, continue Crestor H/O Neuropathy on gabapentin--resume as able. Currently denies any neuropathic pain Hyperparathyroidism S/P parathyroidectomy, chronic hypocalcemia-- continue calcitriol, calcium supplement Prediabetes, Hb A1c of 6.14 Aug 2023 Past tobacco abuse DVT Px: Lovenox SQ Code Status Full code Time spent evaluating patient, direct bedside care, chart review, placing orders, interpretation of diagnostic studies, discussion with consultants, patient, and family members, as well as other required patient management activities is 50 minutes Please note the above document was generated using voice recognition software. It may contain grammatical, syntax or spelling errors. Any formal questions or concerns about the content, text or information contained within the body of this dictation should be directly addressed to the provider for clarification Admission and Anticipated Discharge Date Admission Date: October 13, 2023 Subjective Patient seen and examined at bedside. She is comfortably sitting up on the bed; not in distress. She denies any pain or discomfort. No significant events overnight Review of Systems Review of Systems: Unobtainable due to reduced consciousness Physical Exam Physical Exam: General Appearance:Frail, elderly, no apparent distress Respiratory/Chest: Normal breath sounds, CTA, No accessory muscle use Cardiovascular: S1, S2, +murmur Abdomen/GI:Soft, Non tender, Bowel sounds present Extremities/Musculoskeletal:normal inspection, no edema Neurologic/Psych:AAOX3, grossly no focal neurological deficits Skin: normal color, warm Results & Data Results & Data Vital Signs (Past 12 Hours) Vital Signs Temp Pulse Pulse Resp BP Pulse Ox O2 Del Method 10/19/23 11:46 36.3 C L 65 15 129/58 L 97 Nasal Cannula 10/19/23 10:19 Nasal Cannula 10/19/23 08:08 36.4 C L 91 H 15 126/71 96 Nasal Cannula 10/19/23 07:25 69 10/19/23 03:58 36.9 C 66 18 102/60 96 Nasal Cannula O2 Flow Rate 10/19/23 11:46 3 10/19/23 10:19 2 10/19/23 08:08 2 10/19/23 07:25 10/19/23 03:58 2
--- NOTE | 2023-10-19 13:50 | Urology Progress Note ---
<Statement entered by Jimmy Tiwari MD - 10/19/23 15:08> I have discussed Ms. Rivera's case with MATTHEW Caldwell and agree with the above documentation. Would recommend maintaining ureteral stent in place for now. Although her stone is not obviously visible on most recent CT scan, I suspect it is still in place as the stent is likely blocking passage. She has surgery scheduled in the upcoming weeks for stone removal and resection of bladder tumor. The stent has only been in approximately 3 weeks and is unlikely to be acting as a nidus for recurrent infections at this point. Would recommend treating UTI per culture and following up as scheduled. -Jimmy Tiwari MD. Date of Service October 19, 2023 Assessment & Plan (1) Gram-negative bacteremia: (2) Complicated UTI (urinary tract infection): (3) Left ureteral calculus: Plan: 82 yo/F admitted for acute UTI, severe sepsis and encephalopathy Patient is s/p left ureteral stent placement on 09/25/[address] Tiwari secondary to left ureteral stone and UTI She is afebrile, hemodynamically stable Labs reviewedcreatinine 0.89, WBC 8.06 Urine culture w/ Pseudomonas and Enterococcus Blood cultures w/ Pseudomonas Repeat blood cultures 10/13 showing no growth to date Continue with antibiotics per ID Patient is pending definitive stone surgery and TURBT on 11/[address] Tiwari Ureteral stent appears to be in good position on imaging, no plan for acute intervention at this time Will plan to keep her surgery as scheduled after completing appropriate antibiotic therapy with plan to repeat a urine culture prior to surgical intervention Reviewed plan of care with Dr. Tiwari will sign off, please contact our service with any additional questions or concerns Admission and Anticipated Discharge Date Admission Date: October 13, 2023 Subjective Patient seen and examined at bedside She is resting in bedside chair, awakens to her name Reports she is generally feeling better since arrival Notes intermittent left flank discomfort Denies fever or chills Review of Systems Constitutional: as per Subjective / HPI Genitourinary: as per Subjective / HPI Physical Exam Constitutional: no acute distress Respiratory: no respiratory distress and no labored breathing Gastrointestinal (Abdomen): Inspection/Auscultation: abdomen normal to inspection Musculoskeletal: Head/Neck/Chest: normocephalic Neurologic: moves all extremities and awake Psychiatric: Orientation: alert and oriented x 3 Results & Data Vital Signs (Past 12 Hours) Vital Signs Temp Pulse Pulse Resp BP Pulse Ox O2 Del Method 10/19/23 11:46 36.3 C L 65 15 129/58 L 97 Nasal Cannula 10/19/23 10:19 Nasal Cannula 10/19/23 08:08 36.4 C L 91 H 15 126/71 96 Nasal Cannula 10/19/23 07:25 69 10/19/23 03:58 36.9 C 66 18 102/60 96 Nasal Cannula O2 Flow Rate 10/19/23 11:46 3 10/19/23 10:19 2 10/19/23 08:08 2 10/19/23 07:25 10/19/23 03:58 2 PG Care Time/CCT Total # of Minutes Spent Total Time Spent with Patient: Total time spent is greater than 50% in coordination of care (as documented) at patient's floor/unit and/or counseling patient: Coding Level of Care Code 40591 SUB INP/OBS CARE 05/07MIN Diagnoses Gram-negative bacteremia R78.81 Complicated UTI (urinary tract infection) N39.0 Left ureteral calculus N20.1
[2023-10-20 07:56] LABS: Basophils # (auto) 0.06 K/uL (0.00-0.20); Basophils % (auto) 0.7 %; Eosinophils # (auto) 0.27 K/uL (0.00-0.50); Eosinophils % (auto) 3.2 %; Hematocrit (blood only) 35.2 % (37.0-47.0); Immature Granulocytes % (auto) 2.4 %; Lymphocytes # (auto) 2.21 K/uL (1.20-3.40); Lymphocytes % (auto) 26.2 %; Mean Corpuscular Hemoglobin 29.8 pg (25.0-34.0); Mean Corpuscular Hgb Conc 31.3 g/dL (32.0-36.0); Mean Corpuscular Volume 95.4 fL (80.0-100.0); Mean Platelet Volume 10.4 fL (9.4-12.4); Monocytes # (auto) 0.54 K/uL (0.11-0.59); Monocytes % (auto) 6.4 %; Neutrophils # (auto) 5.14 K/uL (1.40-6.50); Neutrophils % (auto) 61.1 %; Platelet Count 214 K/uL (130-400); RDW Coefficient of Variation 12.8 % (11.5-14.5); RDW Standard Deviation 44.2 fL (36.4-46.3); Red Blood Count 3.69 M/uL (4.20-5.40); White Blood Count 8.42 K/ul (4.8-10.8)
[2023-10-20 08:12] LABS: Calcium 7.5 mg/dl (8.6-10.3); Est GFR (African American) 79.6 ml/min; Est GFR (Non-African American) 68.7 ml/min; Potassium 3.2 mmol/L (3.5-5.1)
--- NOTE | 2023-10-20 13:25 | Hospitalist Progress Note ---
Date of Service October 20, 2023 Assessment & Plan (1) Severe sepsis: Plan: 82-year-old lady with PMH of TBS, PAT, HTN, HLD, PAD, neuropathy, hyperparathyroidism s/p parathyroidectomy, GERD, recurrent UTIs, bladder tumor, urolithiasis, prediabetes, past tobacco abuse who was recently admitted in the hospital last month for E. coli UTI in the setting of left ureteral stone causing hydronephrosis [underwent cystoscopy and left ureteral stent insertion, superficial bladder mass noted on cystoscopy] and was treated with antibiotic with a contemplation of repeat cystoscopy/left ureteroscopy/TURBT for November 10, 2023 presented to the ED 10/12 with complaint of increasingly weak and confusion for 1 day RAD TECH. Patient denies abdominal or flank pain or unusual hematuria symptoms. Patient denied chest pain or shortness of breath or cough symptoms. She is being managed for the following: Complicated UTI Severe sepsis: Secondary to above. Acute Metabolic encephalopathy--resolved H/O recent ureteral stent placement Pseudomonas bacteremia Patient presenting with complaint of increasing confusion and weakness. Physical deconditioning due to above --CT head:No acute intracranial abnormality. --CT ABD:Interval placement of a left nephrostomy catheter with the proximal loop in the renal pelvis and distal loop in the urinary bladder. Previously demonstrated proximal left ureteral calculus is no longer identified the ureter. There is a small calculus in the right posterior aspect of the urinary bladder not present on the prior study likely a passed calculus. No hydronephrosis or hydroureter. -- Blood culture from 10/13/2023 grew Pseudomonas -- Urine culture grew Pseudomonas, Enterococcus faecalis --Repeat blood cultures from 10/14/2023: No growth to date Will complete IV antibiotic course on 10/20/2023 Continue PT OT while hospitalized Reached out to urology regarding exchange/removal of stent as per infectious disease recommendation. Urology recommended to exchange the stent on November 10, 2023 Resume home neuropsychotropic medications as able Stress-induced cardiomyopathy --ECHO on 10/16/2023 : Left ventricle systolic function is severely reduced. EF 30 to 35%. Large wall motion abnormality involving the mid and apical LV with hypokinesis to akinesis of the segments. Sparing of the basal segments. Findings suggest multivessel ischemic heart disease versus stress-induced cardiomyopathy. Moderate to severe aortic regurgitation. Suboptimally visualized valvular anatomy without evidence of vegetation within the limitations of this imaging modality. --Metoprolol tartrate changed to metoprolol succinate 25 mg twice daily Amlodipine discontinued. Started on losartan 12.5 mg daily Continue aspirin 81 mg daily, statin Repeat echocardiogram on 10/18 shows improvement in systolic function and wall motion abnormalities. Elevated troponin: Likely demand ischemia Monitor Abdominal pain: Imaging studies not contributory LFTs within normal limits Lipase normal Resolved Monitor Other chronic medical conditions: Continue with/resume home meds as and when able. Moderate AR (TTE 2022)/early TBS as per records/PAT, patient follows with [facility] [place] [facility] Hypertension, stable. Continue current medications Hyperlipidemia, continue Crestor H/O Neuropathy on gabapentin--resume as able. Currently denies any neuropathic pain Hyperparathyroidism S/P parathyroidectomy, chronic hypocalcemia-- continue calcitriol, calcium supplement Prediabetes, Hb A1c of 6.14 Aug 2023 Past tobacco abuse DVT Px: Lovenox SQ Code Status Full code Updated daughter over the phone. Answer questions/queries Disposition; family to have a discussion regarding bringing patient home with home PT OT versus rehab. They will get back to case management tomorrow. Time spent evaluating patient, direct bedside care, chart review, placing orders, interpretation of diagnostic studies, discussion with consultants, patient, and family members, as well as other required patient management activities is 50 minutes Please note the above document was generated using voice recognition software. It may contain grammatical, syntax or spelling errors. Any formal questions or concerns about the content, text or information contained within the body of this dictation should be directly addressed to the provider for clarification Admission and Anticipated Discharge Date Admission Date: October 13, 2023 Subjective She is sitting up on the chair at the side of bed comfortably. She denies fever, chills, chest pain or shortness of breath No significant events overnight Review of Systems Review of Systems: All systems reviewed & are unremarkable except as noted in Subjective Physical Exam Physical Exam: General Appearance:Frail, elderly, no apparent distress Respiratory/Chest: Normal breath sounds, CTA, No accessory muscle use Cardiovascular: S1, S2, +murmur Abdomen/GI:Soft, Non tender, Bowel sounds present Extremities/Musculoskeletal:normal inspection, no edema Neurologic/Psych:AAOX3, grossly no focal neurological deficits Skin: normal color, warm Results & Data Results & Data Vital Signs (Past 12 Hours) Vital Signs Temp Pulse Pulse Resp BP BP Pulse Ox 10/20/23 11:49 36.7 C 81 18 100/61 97 10/20/23 07:20 36.7 C 61 16 119/69 96 10/20/23 07:00 64 10/20/23 02:58 36.7 C 101 H 18 130/76 96 O2 Del Method O2 Flow Rate 10/20/23 11:49 Nasal Cannula 2 10/20/23 07:20 Nasal Cannula 2 10/20/23 07:00 10/20/23 02:58 Nasal Cannula 2
[2023-10-21 07:48] LABS: Basophils # (auto) 0.04 K/uL (0.00-0.20); Basophils % (auto) 0.5 %; Eosinophils # (auto) 0.18 K/uL (0.00-0.50); Eosinophils % (auto) 2.2 %; Hematocrit (blood only) 35.6 % (37.0-47.0); Hemoglobin 11.2 g/dl (12.0-16.0); Immature Granulocytes # (auto) 0.15 K/uL (0.01-0.20); Immature Granulocytes % (auto) 1.9 %; Lymphocytes # (auto) 2.11 K/uL (1.20-3.40); Lymphocytes % (auto) 26.2 %; Mean Corpuscular Hemoglobin 29.5 pg (25.0-34.0); Mean Corpuscular Hgb Conc 31.5 g/dL (32.0-36.0); Mean Corpuscular Volume 93.7 fL (80.0-100.0); Mean Platelet Volume 10.1 fL (9.4-12.4); Monocytes # (auto) 0.58 K/uL (0.11-0.59); Monocytes % (auto) 7.2 %; Platelet Count 223 K/uL (130-400); RDW Coefficient of Variation 12.9 % (11.5-14.5); RDW Standard Deviation 43.8 fL (36.4-46.3); White Blood Count 8.06 K/ul (4.8-10.8)
[2023-10-21 08:02] LABS: BUN Creatinine Ratio 19.4 (10-20); Calcium 7.4 mg/dl (8.6-10.3); Est GFR (African American) 90.4 ml/min; Potassium 3.2 mmol/L (3.5-5.1)
--- NOTE | 2023-10-21 16:47 | Hospitalist Progress Note ---
Date of Service October 21, 2023 Assessment & Plan (1) Complicated UTI (urinary tract infection): (2) Gram-negative bacteremia: (3) Demand ischemia: Plan Patient presented with severe sepsis due to gram-negative bacteremia from complicated urinary tract infection. Completed course of antibiotics as directed by infectious disease Plan for definitive treatment on her urological issues. November 09. Patient significantly deconditioned per medical illness. Care management notes reviewed, communication with family reviewed. [facility] Replace potassium Continue therapies Patient titrated off oxygen throughout the day today. Anticipate discharge tomorrow Admission and Anticipated Discharge Date Admission Date: October 13, 2023 Subjective No acute issues overnight. Physical Exam Physical Exam: Constitutional: Alert HEENT: Mucous membranes moist. Lungs: Clear to auscultation, decreased, no wheezes rales or rhonchi, on oxygen CV: S1-S2, regular Abdomen: Soft, nontender, nondistended Extremities: No significant edema Neuro: No focal deficits Psych: Cooperative, normal mood Results & Data Results & Data Vital Signs (Past 12 Hours) Vital Signs Temp Pulse Pulse Resp BP Pulse Ox Pulse Ox 10/21/23 16:06 84 10/21/23 16:00 94 10/21/23 15:25 37.0 C 104 H 18 123/66 93 10/21/23 12:10 36.7 C 92 H 18 133/73 92 10/21/23 07:56 66 10/21/23 07:45 36.8 C 99 H 16 139/70 96 O2 Del Method O2 Del Method O2 Flow Rate 10/21/23 16:06 10/21/23 16:00 Room Air 10/21/23 15:25 Room Air 10/21/23 12:10 Room Air 10/21/23 07:56 10/21/23 07:45 Nasal Cannula 2 Diagnostic Findings Surveillance cultures remain sterile Hemoglobin 11.2, WBCs 8.0 Potassium 3.2
[2023-10-21] MEDS: POTASSIUM CHLORIDE CRTAB 20 MEQ TABCR PO STA (20:45)
--- NOTE | 2023-10-22 09:21 | Discharge Summary ---
Discharge Summary Date of Service October 22, 2023 Principal Dx & Hospital Course #1 = Principal Diagnosis (1) Complicated UTI (urinary tract infection): (2) Gram-negative bacteremia: (3) Demand ischemia: (4) Bladder mass: Plan Patient was admitted to the hospital. Known complicated urinary tract infection with stent placements and bladder mass. She is placed on broad-spectrum antibiotics.Blood and urine cultures grew out Pseudomonas aeruginosa. Infectious disease consultation was obtained. Recommendations for antibiotics and duration of antibiotics were obtained. She was also seen by urology. They recommended continuing to treat the antibiotics and patient will be going for definitive intervention the end of October. During her hospitalization the patient was also seen by cardiology for her cardiomyopathy. Echocardiogram was updated confirming ejection fraction of 50%. Patient was transitioned to metoprolol succinate for heart failure and continued on her other other medications. Patient's weakness and confusion improved through the hospitalization. She completed a full course of antibiotics for her infection as recommended by infectious disease here in the hospital. Physical therapy and Occupational The rapy was involved in the patient's care patient was somewhat weak and deconditioned from her medical state. Care management was involved and working with family to determine if she was a candidate for rehabilitation versus intermediate. Ultimately the family felt that the best option would be to take the patient home. Patient will follow-up with urology for definitive intervention on her urological issues as scheduled the end of the month. Notes For Next Care Provider Follow-up with urology for procedure as planned Consider outpatient urology follow-up Medication Changes From Visit Completed antibiotics in the hospital Beta-sav changed to metoprolol succinate Admission HPI Per Admitting Provider History obtained from patient and records. Limited history from patient secondary to disoriented state. Medical history significant for moderate AR (TTE 2022), early TBS as per records, PAT, hypertension, hyperlipidemia, PAD, neuropathy, hyperparathyroidism status post parathyroidectomy, GERD, recurrent UTIs, bladder tumor, urolithiasis, prediabetes, past tobacco abuse. Recent confinement last month for E. coli UTI in the setting of left ureteral stone causing hydronephrosis. Patient underwent cystoscopy, and left ureteral stent insertion. Superficial bladder mass noted on cystoscopy. Patient discharged on antibiotic course. Patient seen on follow-up at [facility] urology office last week. Patient started on Flomax. Repeat cystoscopy, left ureteroscopy, TURBT contemplated for November 10, 2023. Patient noted to be increasingly weak and confused today. Denies abdominal or flank pain or unusual hematuria symptoms. Patient denies chest pain, SOB, cough symptoms. Patient given cefepime at the ER. 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 Lungs: Clear to auscultation, decreased, no wheezes rales or rhonchi CV: S1-S2, regular Abdomen: Soft, nontender, nondistended Extremities: Trace ankle edema Neuro: No focal deficits, some generalized weakness Psych: Cooperative, normal mood Updated Medication List Medication Instructions Recorded Confirmed Type gabapentin 300 mg capsule 600 mg PO QID 05/03/18 10/13/23 History multivitamin 1 tab PO QAM 05/03/18 10/13/23 History omeprazole 20 mg tablet,delayed 20 mg PO BID 05/03/18 10/13/23 History release dorzolamide 22.3 mg-timolol 6.8 1 drp OPB 06/01/18 10/13/23 History mg/mL eye drops (Cosopt) duloxetine 60 mg capsule,delayed 60 mg PO DAILY 06/01/18 10/13/23 History release (Cymbalta) indapamide 2.5 mg tablet 2.5 mg PO DAILY 06/01/18 10/13/23 History latanoprost 0.005 % eye drops 1 drp OPB [facility] 06/01/18 10/13/23 History (Xalatan) aspirin 81 mg tablet,delayed 81 mg PO QAM 06/24/20 10/13/23 History release (Ed Low Dose Aspirin) amlodipine 2.5 mg tablet 2.5 mg PO QAM 09/04/22 10/13/23 History calcitriol 0.5 mcg capsule 1 mcg PO QAM 09/25/23 10/13/23 History metoprolol tartrate 25 mg tablet 25 mg PO [facility] 09/25/23 10/13/23 History rosuvastatin 10 mg tablet 10 mg PO 09/25/23 10/13/23 History oxybutynin chloride 5 mg tablet 5 mg PO Q8H PRN bladder spasms #30 10/07/23 10/13/23 Rx tabs phenazopyridine 100 mg tablet 100 mg PO TID #90 tabs 10/07/23 10/13/23 Rx (Pyridium) tamsulosin 0.4 mg capsule (Flomax) 0.4 mg PO DAILY kidney stone #30 10/07/23 10/13/23 Rx caps latanoprostene bunod 0.024 % eye 1 drp OPB HS 10/13/23 10/13/23 History drops (Vyzulta) magnesium oxide 400 mg (241.3 mg 400 mg PO QAM 10/13/23 10/13/23 History magnesium) tablet (MagOx) tizanidine 2 mg capsule 2 mg PO TID PRN Muscle Spasm 10/13/23 10/13/23 History losartan 25 mg tablet 12.5 mg (1/2 x 25 mg) PO QAM 30 10/22/23 Rx days #15 tabs metoprolol succinate 25 mg 25 mg PO BID 30 days #60 tabs 10/22/23 Rx tablet,extended release 24 hr Hospital Stay Data Consultations 10/13/23 19:00 ED Decision to Admit Stat 10/13/23 22:29 Consult Urology Routine 10/16/23 07:39 Consult Infectious Diseases Routine 10/16/23 12:07 Consult Cardiology Routine Diagnostic Imagining Performed 10/13/23 16:50 CT head/brain wo con Stat 10/13/23 19:01 CT abd pelvis wo con Stat 10/16/23 10:18 US GB [US gallbladder] Routine Reviewed imaging, laboratory and diagnostic studies. Pertinent findings as below. Initial blood and urine culture grew out Pseudomonas, surveillance blood cultures sterile Echocardiogram performed x 2, initial showed ejection fraction 30%, improved to 50 to 55% and subsequent testing. Hemoglobin 11.2, stable Potassium 3.2, will be repleted Creatinine 0.72 Pending Results Patient Have Any Pending Studies at Discharge: No Discharge Instructions Given to Patient (Per Discharging Provider) Continue with therapies Return for definitive therapy as coordinated with urology Home Health Attestation I certify that this patient is under my care and that I, or a physicians ass istant working with me, had a face to-face encounter that meets the home health [id number] encounter requirements with this patient. The encounter with the patient was in whole, or in part, for the following medical condition, which is the primary reason for home health care (list medical condition): I certify that, based on my findings, the following services are medically necessary home health services: My clinical findings support the need for the above services because: Further, I certify that my clinical findings support that this patient is homebound (i.e. absences from home require considerable and taxing effort and are for medical reasons or yazdanism services or infrequently or of short duration when for other reasons) because: Certification for Home Health Services: Based on the above findings, I certify that this patient is confined to the home and needs intermittent intermediate care, physical therapy and/or speech therapy or continues to need occupational therapy. The patient is under my care, and I have initiated the establishment of the plan of care. This patient will be followed by a physician who will periodically review the plan of care. Total Time Total Time Spent Total Time Spent (In Minutes): 40
[2023-10-22] MEDS: POTASSIUM CHLORIDE CRTAB 20 MEQ TABCR PO STA (10:23)
[2023-10-22 10:49] LABS: BUN Creatinine Ratio 19.7 (10-20); Calcium 8.3 mg/dl (8.6-10.3); Creatinine Clr Calc Pharmacy 60.8 ml/min; Est GFR (African American) 91.9 ml/min; Est GFR (Non-African American) 79.3 ml/min; Magnesium 1.4 mg/dl (1.7-2.4); Potassium 3.2 mmol/L (3.5-5.1)
== END 2023-10-22 13:39 | disposition home or self-care (01) | DRG 871 ==
LOC: ED 16:19 → 2N 20:20 → SUATTDRO 20:20 → 2N 21:55 → 3W 10-22 00:44

== ENCOUNTER 2023-10-23 04:47 | Inpatient (IN) ==
--- NOTE | 2023-10-23 05:13 | Emergency Department Note ---
Impression & Plan Congestive heart failure, Hypoxia admit to the [facility] ED Provider Note NAME: SONNY REEVES AGE: 82 SEX: Female INFORMANT: Patient ED PROVIDER(S): Swati Castro DO CHIEF COMPLAINT: Shortness of breath PLAN: Disposition: admit to the [facility] MEDICAL DECISION MAKING: this is an 82-year-old female patient who was just discharged from the hospital yesterday after being admitted for a complicated UTI. Patient had progressive and worsening shortness of breath tonight overnight. upon presentation to the ER, the patient was hypoxic with O2 saturations in the mid 80s. Chest x-ray showed evidence of congestive heart failure. The patient was placed on BiPAP. This gave her moderate relief of her respiratory distress. Laboratory studies showed no leukocytosis or anemia. Renal function was normal. Glucose was normal. Patient had an elevated troponin at 38.4. BNP was 3802. Care/management discussed with: [facility] in the manager of disaster recovery Triage Nursing notes: reviewed and agree with them. Vital Signs: reviewed and remarkable for tachycardia and hypoxia Prior/ Outside/ External records reviewed: with recent admission to the hospital for complicated UTI Differential Diagnosis: CHF, PE, cardiac dysrhythmia, STEMI Diagnostics, independently interpreted by me: ECG: Accelerated junctional rhythm at a rate of 129 with artifact. There is no obvious ectopy. There is no ST segment elevation or signs of ischemia. Repeat ECG: Accelerated junctional at a rate of [address] segment elevation or signs of ischemia. Cardiac Monitoring: Accelerated junctional at a rate of 130 Imaging studies: portable chest x-ray: As per my independent interpretation HPI: 82 year old Female arrives for evaluation of shortness of breath. patient's family called for EMS as she had significant shortness of breath and tachypnea. Discharged from the hospital around 1 PM yesterday afternoon after she had been admitted with a complicated UTI. PAST MEDICAL HISTORY: See Below, PAST SURGICAL HISTORY: See Below, SOCIAL HISTORY: See Below, HOME MEDICATIONS: see list ALLERGIES: none VITALS: See Below PHYSICAL EXAMINATION: HEENT: Head - normocephalic and atraumatic. Pupils are equal, round, and reactive to light. Extraocular eye muscles are intact, and sclera are anicteric. Nose - moist nasal mucosa without discharge. Mouth - moist buccal mucosa. Oropharynx is nonerythematous and there is no tonsillar exudate or edema noted. Neck: Supple; no JVD, nuchal rigidity, cervical lymphadenopathy, or auscultated bruits. Heart: tachycardic rate and regular rhythm There is a normal S1 and S2 with no murmurs, clicks, or gallops appreciated. Lungs: Diminished breath sounds in all lung sykes with rales and wheezing at both bases Abdomen: Soft, completely nontender, nondistended, with good bowel sounds. There are no palpable pulsatile masses or hepatosplenomegaly. There is no guarding, rigidity, or rebound noted. Extremities: No evidence of cyanosis, clubbing, or edema. There are easily palpable peripheral pulses. Skin: warm and dry with good turgor and no rashes. Emergency department course: The patient was quickly examined in room B-6. A complete history and physical was performed. Previous electronic medical records were reviewed. An order was placed for continuous cardiac monitoring. Patient was in an accelerated junctional rhythm at a rate of 130. A twelve-lead EKG was obtained as described above. A portable chest x-ray was performed. Patient was on supplemental oxygen upon arrival but switched to BiPAP fairly quickly to support her O2 saturation. Patient was given IV Lasix. [facility] for further inpatient care. I have personally spent greater than 30 minutes of critical care time in the direct management of this patient. This includes bedside care, interpretation of diagnostic studies, and testing, discussion with consultants, patient, and family members, and other required patient management activities. This 30 minutes is in excess of all separately billable procedures. Past Med/Surg History Problem List Diabetes mellitus type 2, uncomplicated Ureteral stent present Acute on chronic combined systolic and diastolic heart failure Hypoxia (Acute) Congestive heart failure (Acute) Complicated UTI (urinary tract infection) Gram-negative bacteremia Abnormal echocardiogram Bacteremia Premature atrial contractions Demand ischemia Severe sepsis Elevated lactic acid level (Acute) Hypomagnesemia (Acute) Somnolence (Acute) Elevated troponin (Acute) Leukocytosis (Acute) Acute UTI (Acute) Confusion (Acute) Acute kidney injury Bladder mass Abdominal pain, LLQ (Acute) Left flank pain Hydronephrosis Left ureteral calculus UTI (urinary tract infection) Tachy-bob syndrome Wenckebach Atrial tachycardia, paroxysmal Sinus tachycardia Arrhythmia (Acute) Acute electrocardiogram changes Tachycardia (Acute) Constipation (Acute) HTN (hypertension) (Chronic) GERD (gastroesophageal reflux disease) (Chronic) Migraine (Chronic) Dyslipidemia (Chronic) Vitamin D deficiency (Chronic) Osteoporosis (Chronic) Neuropathy (Chronic) H/O parathyroidectomy (Chronic) "09/26/13" Medical History Nephrolithiasis History of hydronephrosis Closed fracture of distal end of right fibula Glaucoma Bilateral tinnitus Chronic pain both feet and legs Neuropathy BOTH FEET AND LEGS Hyperlipidemia H/O parathyroidectomy Surgical History Hx of bilateral cataract extraction Hx of cholecystectomy History of back surgery lower Family History Other Cancer Social History Smoking Status: Never smoker Tobacco Type: Cigarettes Second Hand Exposure: No; Do You Dip or Chew Tobacco: No; Tobacco Cessation Education Requested by Patient: No Hx Alcohol Use: No Hx Substance Use: No Preferred Language: Cantonese Divehi Communication Ability: Effective Visual Impairment: No Limitations Hearing Ability: Normal Nuclear Medicine Medical Director Required: No Beliefs That Will Affect Care: None marital status: / Current Living Situation: Family Current Living Situation Comment: lives with daughter How many Children do You have: 2 Other Information That Helps Us Care for You: No Feels Safe at Home: Yes Safety Concerns: Feels Safe At This Time Assistive Devices: Raised Toilet Seat and Walker Allergies Allergies Allergy/AdvReac Type Severity Reaction Status Date / Time No Known Allergies Allergy Verified 10/23/23 07:10 Home Meds Home Medications Medication Instructions Recorded Confirmed multivitamin 1 tab PO QAM 05/03/18 10/23/23 omeprazole 20 mg tablet,delayed 20 mg PO BID 05/03/18 10/23/23 release dorzolamide 22.3 mg-timolol 6.8 1 drp OPB HS 06/01/18 10/23/23 mg/mL eye drops (Cosopt) duloxetine 60 mg capsule,delayed 60 mg PO DAILY 06/01/18 10/23/23 release (Cymbalta) latanoprost 0.005 % eye drops 1 drp OPB AMHS 06/01/18 10/23/23 (Xalatan) aspirin 81 mg tablet,delayed 81 mg PO QAM 06/24/20 10/23/23 release (Ed Low Dose Aspirin) calcitriol 0.5 mcg capsule 1 mcg PO QAM 09/25/23 10/23/23 rosuvastatin 10 mg tablet 10 mg PO HS 09/25/23 10/23/23 latanoprostene bunod 0.024 % eye 1 drp OPB HS 10/13/23 10/23/23 drops (Vyzulta) phenazopyridine 100 mg tablet 100 mg PO TID 10/23/23 10/23/23 Previous Rx's Medication Instructions Recorded tamsulosin 0.4 mg capsule (Flomax) 0.4 mg PO DAILY kidney stone #30 10/07/23 caps losartan 25 mg tablet 12.5 mg (1/2 x 25 mg) PO QAM 30 10/22/23 days #15 tabs metoprolol succinate 25 mg 25 mg PO BID 30 days #60 tabs 10/22/23 tablet,extended release 24 hr Results & Data (ED) Vital Signs Vital Signs - 24 hr 10/23/23 04:54 10/23/23 05:00 10/23/23 05:00 Temperature 36.5 C Temperature Source Oral Pulse Rate 130 H 132 H Pulse Rate [Left Finger] Pulse Rhythm Regular Pulse Rhythm [Left Finger] Pulse Strength Normal Pulse Strength [Left Finger] Respiratory Rate 30 H Respiratory Effort / Characteristics Accessory Muscle Use Labored Short of Breath Non-Labored Respiratory Depth Deep Normal Respiratory Pattern Blood Pressure 165/130 H Blood Pressure [Right Arm] Blood Pressure Mean 141 Blood Pressure Mean [Right Arm] Pulse Oximetry 92 Oxygen Delivery Method Nasal Cannula Nasal Cannula Oxygen Flow Rate 2 2 Fraction of Inspired Oxygen Sepsis Recent Fever Within 48 Hours No Sepsis New/Unexplained Change in Mental Status No Sepsis Action Taken by Nursing Physician Notified 10/23/23 05:00 10/23/23 05:00 10/23/23 05:10 Temperature Temperature Source Pulse Rate Pulse Rate [Left Finger] Pulse Rhythm Pulse Rhythm [Left Finger] Pulse Strength Pulse Strength [Left Finger] Respiratory Rate Respiratory Effort / Characteristics Respiratory Depth Respiratory Pattern Blood Pressure Blood Pressure [Right Arm] Blood Pressure Mean Blood Pressure Mean [Right Arm] Pulse Oximetry 91 92 Oxygen Delivery Method Nasal Cannula Nasal Cannula Nasal Cannula Oxygen Flow Rate 2 2 Fraction of Inspired Oxygen Sepsis Recent Fever Within 48 Hours Sepsis New/Unexplained Change in Mental Status Sepsis Action Taken by Nursing 10/23/23 05:58 10/23/23 06:50 10/23/23 07:00 Temperature Temperature Source Pulse Rate 121 H 118 H Pulse Rate [Left Finger] 109 H Pulse Rhythm Pulse Rhythm [Left Finger] Regular Pulse Strength Pulse Strength [Left Finger] Normal Respiratory Rate 24 18 20 Respiratory Effort / Characteristics Spontaneous Non-Labored Spontaneous Non-Labored Spontaneous Respiratory Depth Normal Normal Normal Respiratory Pattern Regular Regular Regular Blood Pressure Blood Pressure [Right Arm] 137/81 Blood Pressure Mean Blood Pressure Mean [Right Arm] 99 Pulse Oximetry 95 93 94 Oxygen Delivery Method BiPAP Oxygen Flow Rate Fraction of Inspired Oxygen 30 30 Sepsis Recent Fever Within 48 Hours Sepsis New/Unexplained Change in Mental Status Sepsis Action Taken by Nursing Laboratory Data 10/24/23 07:09 10/24/23 07:09 Lab Results 10/23/23 10/23/23 10/23/23 Range/Units 05:10 06:58 07:01 WBC 9.91 (4.8-10.8) K/ul RBC 4.08 L (4.20-5.40) M/uL Hgb 12.2 (12.0-16.0) g/dl Hct 37.9 (37.0-47.0) % MCV 92.9 (80.0-100.0) fL MCH 29.9 (25.0-34.0) pg MCHC 32.2 (32.0-36.0) g/dL RDW Std Deviation 43.8 (36.4-46.3) fL RDW Coeff of Didi 13.0 (11.5-14.5) % Plt Count 282 (130-400) K/uL MPV 10.1 (9.4-12.4) fL Immature Gran % (Auto) 1.2 % Neut % (Auto) 75.9 % Lymph % (Auto) 16.3 % Sully % (Auto) 5.1 % Eos % (Auto) 1.1 % Baso % (Auto) 0.4 % Neut # (Auto) 7.51 H (1.40-6.50) K/uL Lymph # (Auto) 1.62 (1.20-3.40) K/uL Sully # (Auto) 0.51 (0.11-0.59) K/uL Eos # (Auto) 0.11 (0.00-0.50) K/uL Baso # (Auto) 0.04 (0.00-0.20) K/uL Immature Gran # (Auto) 0.12 (0.01-0.20) K/uL D-Dimer Cancelled 2049 H* Sodium 142 (136-145) mmol/L Potassium 3.5 (3.5-5.1) mmol/L Chloride 104 (98-107) mmol/L Carbon Dioxide 27 (21-32) mmol/L Anion Gap 11 (3-11) BUN 15 (6-23) mg/dl Creatinine 0.79 (0.6-1.2) mg/dl Est Cr Clr Drug Dosing 51.8 ml/min Est GFR ( Amer) 80.8 ml/min Est GFR (Non-Af Amer) 69.7 ml/min BUN/Creatinine Ratio 19.0 (10-20) Glucose 177 H (70-99(Fasting)) mg/dl Estimat Average Glucose 128 mg/dl Hemoglobin A1c 6.1 H (4.5-5.6) % Calcium 8.6 (8.6-10.3) mg/dl Magnesium 1.4 L (1.7-2.4) mg/dl Total Bilirubin 0.7 (0.2-1.0) mg/dl AST 18 (13-39) U/L ALT 14 (7-52) U/L Alkaline Phosphatase 44 (34-104) U/L Troponin I High Sens 38.4 H (0-14) pg/ml Total Protein 6.4 (6.0-8.3) gm/dl Albumin 3.5 (3.4-5.0) gm/dl Globulin 2.9 (2.5-4.0) gm/dl Albumin/Globulin Ratio 1.2 (0.9-2) TSH 1.821 (0.300-4.500) uIu/ml Urine Color [place] Urine Appearance Cloudy A (Clear) Urine pH 6.0 (4.5-7.5) Ur Specific [place] 1.012 (1.000-1.030) Urine Protein 2+ H (Negative) Urine Glucose (UA) 1+ H (Negative) Urine Ketones Negative (Negative) Urine Blood 3+ H (Negative) Urine Nitrite Negative (Negative) Urine Bilirubin Negative (Negative) Urine Urobilinogen Negative (Negative) Ur Leukocyte Esterase 2+ H (Negative) Urine WBC (Auto) 21-50 H (0-5) /hpf Urine RBC (Auto) >20 H (0-2) /hpf U Hyaline Cast (Auto) 0-2 (0-2) /lpf U Epithel Cells (Auto) 6-10 H (0-2) /hpf Urine Bacteria (Auto) None Seen (None Seen) Administered Medications Acetaminophen (Acetaminophen 325 Mg Tab) 650 mg PO Q4H PRN PRN Reason: Pain or Fever Stop: 11/22/23 08:36 Last Admin: 10/24/23 11:09 Dose: 650 mg Documented By: LEONEL Aspirin (Aspirin 81 Mg Ectab) 81 mg PO [facility] Stop: 11/22/23 08:59 Last Admin: 10/24/23 08:45 Dose: 81 mg Documented By: Admin: 10/23/23 11:20 Dose: 81 mg Documented By: KODY Calcitriol (Calcitriol 0.25 Mcg Capsule) [facility] [place] Stop: 11/22/23 10:59 Last Admin: 10/24/23 08:45 Dose: 1 mcg Documented By: Admin: 10/23/23 11:20 Dose: 1 mcg Documented By: KODY Dorzolamide/Timolol (Dorzolamide/Timolol 22.3/6.8mg/Ml 10 Ml Btl) 1 drops OPB HS [facility] Stop: 11/22/23 20:59 Last Admin: 10/23/23 21:11 Dose: 1 drops Documented By: NAYE Duloxetine HCl (Duloxetine Hcl 60 Mg Cap) 60 mg PO DAILY [facility] Stop: 11/22/23 10:59 Last Admin: 10/24/23 08:46 Dose: 60 mg Documented By: Admin: 10/23/23 11:21 Dose: 60 mg Documented By: KODY Furosemide (Furosemide 40 Mg/4 Ml Vial) 40 mg IV BID17 [facility] Stop: 11/22/23 10:59 Last Admin: 10/24/23 15:58 Dose: Not Given Documented By: Admin: 10/24/23 08:57 Dose: 40 mg Documented By: Admin: 10/23/23 18:17 Dose: 40 mg Documented By: Admin: 10/23/23 11:23 Dose: 40 mg Documented By: KODY Heparin Sodium/Dextrose (Heparin Sodium/Dextrose) 25,000 units in 500 mls @ 14 mls/hr IV .Q24H [facility]; Protocol Stop: 11/22/23 14:14 Last Titration: 10/24/23 17:26 Dose: 700 units/hr, 14 mls/hr Documented By: LEONEL Co-signed By: JABIER Admin: 10/24/23 14:16 Dose: Not Given Documented By: Titration: 10/24/23 08:49 Dose: 600 units/hr, 12 mls/hr Documented By: LEONEL Co-signed By: KRISTINA Titration: 10/24/23 07:20 Dose: 550 units/hr, 11 mls/hr Documented By: LEONEL Co-signed By: NAYE Titration: 10/23/23 23:37 Dose: 550 units/hr, 11 mls/hr Documented By: NAYE Co-signed By: IRVING Titration: 10/23/23 19:10 Dose: 750 units/hr, 15 mls/hr Documented By: NAYE Co-signed By: LINWOOD Admin: 10/23/23 15:44 Dose: 750 units/hr, 15 mls/hr Documented By: LINWOOD Co-signed By: JABIER Magnesium Sulfate/Dextrose (Magnesium Sulfate / D5w) 1 gm in 100 mls @ 50 mls/hr IV Q2H [facility] Stop: 10/24/23 18:14 Last Admin: 10/24/23 16:04 Dose: 50 mls/hr Documented By: Infusion: 10/24/23 16:04 Dose: Infused Documented By: Admin: 10/24/23 14:16 Dose: 50 mls/hr Documented By: Infusion: 10/24/23 14:16 Dose: Infused Documented By: Admin: 10/24/23 12:21 Dose: 50 mls/hr Documented By: Infusion: 10/24/23 12:21 Dose: Infused Documented By: Admin: 10/24/23 10:33 Dose: 50 mls/hr Documented By: LEONEL Insulin Aspart (Insulin Aspart Per Unit Charge) 0 units SC ACHS [facility] Stop: 11/22/23 11:29 Last Admin: 10/24/23 17:25 Dose: 3 units Documented By: LEONEL Co-signed By: JABIER Admin: 10/24/23 12:26 Dose: 1 units Documented By: LEONEL Co-signed By: DOMINGA Admin: 10/24/23 08:43 Dose: 2 units Documented By: LEONEL Co-signed By: KRISTINA Admin: 10/23/23 21:00 Dose: Not Given Documented By: Admin: 10/23/23 17:47 Dose: Not Given Documented By: Admin: 10/23/23 13:41 Dose: Not Given Documented By: LINWOOD Latanoprost (Latanoprost 0.005% Op Soln 2.5 Ml Btl) 1 drops OPB AMHS [facility] Stop: 11/22/23 10:59 Last Admin: 10/24/23 08:48 Dose: 1 drops Documented By: Admin: 10/23/23 21:11 Dose: 1 drops Documented By: Admin: 10/23/23 11:24 Dose: 1 drops Documented By: KODY Losartan Potassium (Losartan Potassium 25 Mg Tab) 12.5 mg PO QAM [facility] Stop: 11/22/23 10:59 Last Admin: 10/24/23 08:58 Dose: Not Given Documented By: Admin: 10/23/23 11:24 Dose: 12.5 mg Documented By: KODY Magnesium Oxide (Magnesium Oxide 400 Mg Tab) 400 mg PO QAM [facility] Stop: 11/22/23 12:29 Last Admin: 10/24/23 08:45 Dose: 400 mg Documented By: Admin: 10/23/23 15:44 Dose: 400 mg Documented By: LINWOOD Miscellaneous (Latanoprostene~Order Awaiting Action) 1 each N/A QS [facility] Stop: 11/22/23 15:59 Last Admin: 10/24/23 15:21 Dose: Not Given Documented By: Admin: 10/24/23 07:26 Dose: Not Given Documented By: Admin: 10/24/23 00:13 Dose: Not Given Documented By: Admin: 10/23/23 12:47 Dose: Not Given Documented By: LINWOOD Multivitamins (Multivitamin Tab) 1 tab PO QAM [facility] Stop: 11/22/23 10:59 Last Admin: 10/24/23 08:45 Dose: 1 tab Documented By: Admin: 10/23/23 11:25 Dose: 1 tab Documented By: KODY Pantoprazole Sodium (Pantoprazole 40 Mg Tab) 40 mg PO BID [facility] Stop: 11/22/23 10:59 Last Admin: 10/24/23 08:45 Dose: 40 mg Documented By: Admin: 10/23/23 21:34 Dose: 40 mg Documented By: Admin: 10/23/23 11:25 Dose: 40 mg Documented By: KODY Potassium Chloride (Potassium Chloride Crtab 20 Meq Tabcr) 40 meq PO QAM [facility] Stop: 11/23/23 08:59 Last Admin: 10/24/23 08:57 Dose: 40 meq Documented By: LEONEL Rosuvastatin Calcium (Rosuvastatin Calcium 10 Mg Tab) 10 mg PO HS [facility] Stop: 11/22/23 20:59 Last Admin: 10/23/23 21:11 Dose: 10 mg Documented By: NAYE Discontinued Medications Enoxaparin Sodium (Enoxaparin Inj 40 Mg/0.4 Ml Syr) 40 mg SQ QAM [facility] Stop: 11/22/23 10:59 Last Admin: 10/23/23 11:22 Dose: 40 mg Documented By: KODY Furosemide (Furosemide 40 Mg/4 Ml Vial) 40 mg IV ONE ONE Stop: 10/23/23 05:44 Last Admin: 10/23/23 05:52 Dose: 40 mg Documented By: ANGELINA Heparin Sodium (Porcine) (Heparin Sod (Porcine) 1000 Unit/Ml) 4,000 units IV NOW ONE Stop: 10/23/23 15:01 Last Admin: 10/23/23 15:44 Dose: 4,000 units Documented By: LINWOOD Co-signed By: JABIER Ioversol (Optiray 320 125ml) 116 ml IV ONCE ONE Stop: 10/23/23 16:28 Last Admin: 10/23/23 16:27 Dose: 116 ml Documented By: NURIA Metoprolol Succinate (Metoprolol Succ 25mg Ext Rel Tab) 25 mg PO BID [facility] Stop: 11/22/23 10:59 Last Admin: 10/23/23 11:25 Dose: 25 mg Documented By: KODY Metoprolol Succinate (Metoprolol Succ 25mg Ext Rel Tab) 25 mg PO TID [facility] Stop: 11/22/23 13:59 Last Admin: 10/24/23 08:55 Dose: 25 mg Documented By: Admin: 10/23/23 21:12 Dose: 25 mg Documented By: Admin: 10/23/23 15:44 Dose: 25 mg Documented By: DW Metoprolol Tartrate (Metoprolol Tartrate 1 Mg/Ml Vial) 5 mg IV NOW STA Stop: 10/23/23 11:53 Last Admin: 10/23/23 12:29 Dose: 5 mg Documented By: LINWOOD Potassium Chloride (Potassium Chloride Crtab 20 Meq Tabcr) 40 meq PO NOW STA Stop: 10/23/23 12:07 Last Admin: 10/23/23 12:29 Dose: 40 meq Documented By: LINWOOD Tamsulosin HCl (Tamsulosin Hcl 0.4 Mg Cap) 0.4 mg PO DAILY [facility] Stop: 11/22/23 10:59 Last Admin: 10/24/23 08:45 Dose: 0.4 mg Documented By: Admin: 10/23/23 11:25 Dose: 0.4 mg Documented By: BMK Imaging Data Radiologist's Impression: Chest X-Ray 10/23/23 05:05 XR chest 1V portable HISTORY: 82 years-old Female Dyspnea acute shortness of breath COMPARISON: 10/16/2023 TECHNIQUE: AP view of the chest FINDINGS: Cardiac silhouette is enlarged. Pulmonary vascular congestion with interstitial coarsening. No pneumothorax. Small pleural effusions with mild bibasilar consolidation. Bones appear grossly intact. IMPRESSION: 1. Cardiomegaly with pulmonary edema. 2. Small pleural effusions with mild bibasilar opacities. ACT 112: Negative or not required by law. The above report was generated using voice recognition software. It may contain grammatical, syntax or spelling errors. Electronically signed by: Elton Fraire M.D. 10/23/2023 7:00 AM Discharge Plan Visit Data Chief Complaint: Respiratory Distress Stated Complaint: SOB, UTI ED Provider: Swati Castro Discharge Problem: Congestive heart failure, Hypoxia Patient Disposition: Admitted As Inpatient Discharge Instructions Interventions: ED Discharge Assessment Last Done: 10/23/23 11:02
[2023-10-23 05:30] LABS: Basophils # (auto) 0.04 K/uL (0.00-0.20); Basophils % (auto) 0.4 %; Eosinophils # (auto) 0.11 K/uL (0.00-0.50); Eosinophils % (auto) 1.1 %; Hematocrit (blood only) 37.9 % (37.0-47.0); Hemoglobin 12.2 g/dl (12.0-16.0); Immature Granulocytes # (auto) 0.12 K/uL (0.01-0.20); Immature Granulocytes % (auto) 1.2 %; Lymphocytes # (auto) 1.62 K/uL (1.20-3.40); Lymphocytes % (auto) 16.3 %; Mean Corpuscular Hemoglobin 29.9 pg (25.0-34.0); Mean Corpuscular Hgb Conc 32.2 g/dL (32.0-36.0); Mean Corpuscular Volume 92.9 fL (80.0-100.0); Mean Platelet Volume 10.1 fL (9.4-12.4); Monocytes # (auto) 0.51 K/uL (0.11-0.59); Monocytes % (auto) 5.1 %; Neutrophils # (auto) 7.51 K/uL (1.40-6.50); Neutrophils % (auto) 75.9 %; Platelet Count 282 K/uL (130-400); RDW Standard Deviation 43.8 fL (36.4-46.3); Red Blood Count 4.08 M/uL (4.20-5.40); White Blood Count 9.91 K/ul (4.8-10.8)
[2023-10-23 05:46] LABS: Albumin Globulin Ratio 1.2 (0.9-2); Albumin Level 3.5 gm/dl (3.4-5.0); Bilirubin,Total 0.7 mg/dl (0.2-1.0); Calcium 8.6 mg/dl (8.6-10.3); Creatinine Clr Calc Pharmacy 51.8 ml/min; Est GFR (African American) 80.8 ml/min; Est GFR (Non-African American) 69.7 ml/min; Globulin 2.9 gm/dl (2.5-4.0); Potassium 3.5 mmol/L (3.5-5.1); Total Protein 6.4 gm/dl (6.0-8.3)
[2023-10-23 05:52] LABS: Troponin I High Sensitivity 38.4 pg/ml (0-14)
[2023-10-23] MEDS: FUROSEMIDE 40 MG/4 ML VIAL IV ONE (05:52)
--- NOTE | 2023-10-23 07:01 | XRay Report ---
XR chest 1V portable HISTORY: 82 years-old Female Dyspnea acute shortness of breath COMPARISON: 10/16/2023 TECHNIQUE: AP view of the chest FINDINGS: Cardiac silhouette is enlarged. Pulmonary vascular congestion with interstitial coarsening. No pneumo thorax. Small pleural effusions with mild bibasilar consolidation. Bones appear grossly intact. IMPRESSION: 1. Cardiomegaly with pulmonary edema. 2. Small pleural effusions with mild bibasilar opacities. ACT 112: Negative or not required by law. The above report was generated using voice recognition software. It may contain grammatical, syntax o r spelling errors. Electronically signed by: Elton Fraire M.D. 10/23/2023 7:00 AM
[2023-10-23 07:43] LABS: Appearance Urine Cloudy (Clear); Bacteria Urine Automated None Seen (None Seen); Bilirubin Urine Negative (Negative); Blood Urine 3+ (Negative); Cast Urine Automated 0-2 /lpf (0-2); Color Urine Orange; Glucose Urine UA 1+ (Negative); Ketones Urine Negative (Negative); Leukocyte Esterase Urine 2+ (Negative); Nitrite Urine Negative (Negative); Protein Urine 2+ (Negative); RBC Urine Automated >20 /hpf (0-2); Specific Gravity Urine 1.012 (1.000-1.030); Urobilinogen Urine Negative (Negative); WBC Urine Automated 21-50 /hpf (0-5)
[2023-10-23] MEDS ORDERED: ONDANSETRON INJ 2 MG/ML 2 ML VIAL IV PRN (08:37)
[2023-10-23] MEDS ORDERED: DEXTROSE 50% 50 ML SYRINGE IV PRN (08:47)
[2023-10-23] MEDS ORDERED: GLUCOSE 40% GEL 15 GM TUBE PO PRN (08:47)
[2023-10-23] MEDS ORDERED: GLUCAGON FOR INJ 1 MG VIAL SQ PRN (08:47)
[2023-10-23] MEDS ORDERED: GLUCOSE 10 TAB/TUBE PO PRN (08:47)
[2023-10-23] MEDS ORDERED: CARBOHYDRATES FOR HYPOGLYCEMIA PO PRN (08:47)
--- NOTE | 2023-10-23 09:08 | History & Physical Report ---
Date of Service October 23, 2023 Assessment & Plan (1) Acute on chronic combined systolic and diastolic heart failure: (2) Tachy-bob syndrome: (3) Atrial tachycardia, paroxysmal: (4) Ureteral stent present: (5) Bladder mass: (6) Diabetes mellitus type 2, uncomplicated: Plan Patient is a 82-year-old female with acute on chronic systolic and diastolic congestive heart failure most likely due to paroxysmal atrial tachycardia. Patient is critically ill, she is a high risk for further decompensation and respiratory failure. She requires hospital level care, hospital level interventions and specialty consultation. She will need frequent monitoring of laboratory studies and vital signs. Admit to progressive care unit on telemetry Continue with IV diuresis Continue current beta-sav, dose this morning Consult cardiology Check TSH and hemoglobin A1c Monitor electrolytes and renal function Monitor glucose Continue to observe off antibiotics at this time, patient has known ureteral stent and bladder mass. Has definitive interventions arranged for later this month. Just completed course of antibiotics for UTI and bacteremia. Low suspicion for recurrent infection at this time. History of Present Illness Chief Complaint: Shortness of breath Primary Care Provider: Hernan Fernández MD Patient 82-year-old female who was just discharged from the hospital yesterday after being treated for UTI and bacteremia. During that time also was seen by cardiology. She is having some arrhythmia as. Also her initial ejection fraction was 30%. It improved to 50% within a couple days during her hospitalization. Her beta-sav was adjusted and seems as though her heart rates were controlled and there was no evidence of heart failure. She was discharged to home in the care of her family. She went to bed last night as she laid down she started to get short of breath. This progressed throughout the night. Called family who called EMS. She was noted be quite hypoxic in the field. She was placed on oxygen. She was brought to the emergency room. In the emergency room was placed on BiPAP. Evaluation in the emergency room was significant for decompensated heart failure. She was given diuretics and she already started to improve and diuresis here in the emergency room. Time my evaluation patient sleeping on BiPAP. Able to be aroused but not very interactive to the history. Daughter is at the bedside. History obtained from the daughter and through review of the medical record. There was no chest pain. Otherwise she had done well throughout the day after her discharge. No fevers or chills reported. Allergies Allergy/AdvReac Type Severity Reaction Status Date / Time No Known Allergies Allergy Verified 10/23/23 07:10 Home Medications Medication Instructions Recorded Confirmed Type multivitamin 1 tab PO QAM 05/03/18 10/23/23 History omeprazole 20 mg tablet,delayed 20 mg PO BID 05/03/18 10/23/23 History release dorzolamide 22.3 mg-timolol 6.8 1 drp OPB HS 06/01/18 10/23/23 History mg/mL eye drops (Cosopt) duloxetine 60 mg capsule,delayed 60 mg PO DAILY 06/01/18 10/23/23 History release (Cymbalta) latanoprost 0.005 % eye drops 1 drp [facility] 06/01/18 10/23/23 History (Xalatan) aspirin 81 mg tablet,delayed 81 mg PO QAM 06/24/20 10/23/23 History release (Ed Low Dose Aspirin) calcitriol 0.5 mcg capsule 1 mcg PO QAM 09/25/23 10/23/23 History rosuvastatin 10 mg tablet 10 mg PO HS 09/25/23 10/23/23 History tamsulosin 0.4 mg capsule (Flomax) 0.4 mg PO DAILY kidney stone #30 10/07/23 10/23/23 Rx caps latanoprostene bunod 0.024 % eye 1 drp OPB HS 10/13/23 10/23/23 History drops (Vyzulta) losartan 25 mg tablet 12.5 mg (1/2 x 25 mg) PO QAM 30 10/22/23 10/23/23 Rx days #15 tabs metoprolol succinate 25 mg 25 mg PO BID 30 days #60 tabs 10/22/23 10/23/23 Rx tablet,extended release 24 hr phenazopyridine 100 mg tablet 100 mg PO TID 10/23/23 10/23/23 History Past Med/Surg History Problem List Diabetes mellitus type 2, uncomplicated Ureteral stent present Acute on chronic combined systolic and diastolic heart failure Hypoxia (Acute) Congestive heart failure (Acute) Complicated UTI (urinary tract infection) Gram-negative bacteremia Abnormal echocardiogram Bacteremia Premature atrial contractions Demand ischemia Severe sepsis Elevated lactic acid level (Acute) Hypomagnesemia (Acute) Somnolence (Acute) Elevated troponin (Acute) Leukocytosis (Acute) Acute UTI (Acute) Confusion (Acute) Acute kidney injury Bladder mass Abdominal pain, LLQ (Acute) Left flank pain Hydronephrosis Left ureteral calculus UTI (urinary tract infection) Tachy-bob syndrome Wenckebach Atrial tachycardia, paroxysmal Sinus tachycardia Arrhythmia (Acute) Acute electrocardiogram changes Tachycardia (Acute) Constipation (Acute) HTN (hypertension) (Chronic) GERD (gastroesophageal reflux disease) (Chronic) Migraine (Chronic) Dyslipidemia (Chronic) Vitamin D deficiency (Chronic) Osteoporosis (Chronic) Neuropathy (Chronic) H/O parathyroidectomy (Chronic) "09/26/13" Medical History Nephrolithiasis History of hydronephrosis Closed fracture of distal end of right fibula Glaucoma Bilateral tinnitus Chronic pain both feet and legs Neuropathy BOTH FEET AND LEGS Hyperlipidemia H/O parathyroidectomy Surgical History Hx of bilateral cataract extraction Hx of cholecystectomy History of back surgery lower Family History Other Cancer Social History Smoking Status: Never smoker Tobacco Type: Cigarettes Second Hand Exposure: No; Do You Dip or Chew Tobacco: No; Hx Alcohol Use: No Hx Substance Use: No Preferred Language: Kiswahili Communication Ability: Effective Visual Impairment: No Limitations Hearing Ability: Normal Machine Feeder Raw Stock Required: No Beliefs That Will Affect Care: None marital status: / Current Living Situation: Family Current Living Situation Comment: lives with daughter How many Children do You have: 2 Feels Safe at Home: Yes Assistive Devices: Glasses, Raised Toilet Seat and Walker Physical Exam Physical Exam: Constitutional: Alert, ill in appearance, nontoxic on BiPAP mask HEENT: Mucous membranes moist. Sclera clear Neck: Soft, no adenopathy Lungs: Decreased breath sounds, coarse rhonchi, diffuse Rales CV: S1-S2, tachycardic Abdomen: Soft, nontender, nondistended Extremities: 1+ pretibial edema Musculoskeletal: No significant joint tenderness Neuro: No focal deficits, generalized weakness, drowsy Psych: Cooperative, normal mood Results & Data Results & Data Vital Signs (Past 12 Hours) Vital Signs Temp Pulse Pulse Resp BP BP Pulse Ox 10/23/23 08:57 115 H 07/12/24 07:00 109 H 20 137/81 94 10/23/23 06:50 118 H 18 93 10/23/23 05:58 121 H 24 95 10/23/23 05:10 92 10/23/23 05:00 10/23/23 05:00 91 10/23/23 05:00 36.5 C 132 H 30 H 165/130 H 92 10/23/23 05:00 10/23/23 04:54 130 H O2 Del Method O2 Flow Rate FiO2 10/23/23 08:57 10/23/23 07:00 BiPAP 10/23/23 06:50 30 10/23/23 05:58 30 10/23/23 05:10 Nasal Cannula 2 10/23/23 05:00 Nasal Cannula 10/23/23 05:00 Nasal Cannula 2 10/23/23 05:00 Nasal Cannula 2 10/23/23 05:00 Nasal Cannula 2 10/23/23 04:54 Diagnostic Findings Reviewed imaging, laboratory and diagnostic studies. Pertinent findings as below. Personally reviewed EKG, appears to be a junctional rhythm Personally viewed chest x-ray images, increased pulmonary congestion and edema CBC stable Basic metabolic profile reviewed, electrolytes stable, renal function stable Glucose 177 Troponin 38.4, this is significantly improved from recent hospitalization Urinalysis reviewed, essentially at baseline
[2023-10-23 09:19] LABS: Estimated Average Glucose 128 mg/dl; Hemoglobin A1C 6.1 % (4.5-5.6)
[2023-10-23 09:24] LABS: D Dimer 2050 ug/L FEU (0-500)
[2023-10-23 09:38] LABS: Thyroid Stimulating Hormone 1.821 uIu/ml (0.300-4.500)
--- NOTE | 2023-10-23 11:12 | Cardiology Consultation ---
Date of Consultation October 23, 2023 Assessment & Plan (1) Acute on chronic combined systolic and diastolic heart failure: (2) Hypoxia: (3) Tachycardia: (4) Elevated troponin: Plan Impression: Medically complex 82-year-old female admitted for acute on chronic combined systolic and diastolic CHF. Acutely hypoxic requiring supplemental oxygen therapy. Heart rates tachycardic on telemetry. EKG revealing possible atrial tach versus an atypical atrial flutter. High-sensitivity troponin mildly elevated Plan: Combined systolic and diastolic CHF: Prior admission with Takotsubo cardiomyopathy with improved LV systolic function of 50 to 55% prior to discharge. Patient appears hypervolemic on exam, hypoxic and requiring supplemental oxygen therapy. -Continue diuresis with IV Lasix 40 mg twice daily. -Continue GDMT with with metoprolol succinate 25 mg BID, increase to 25 mg TID. and Losartan 12.5 mg daily. Future considerations of adding Aldactone. -Continue ASA and Statin -Maintain a potassium goal of 4.0 and mag goal of 2.0; replace as warranted. -Strict I's/O. Maintain Salazar catheter. Daily weights. 2 g sodium diet. -Wean O2 as tolerated Tachycardic rates on telemetry; Concerns for atrial arrhythmia/atypical atrial flutter. D-dimer and high-sensitivity troponin elevated. -Recommend initiation of IV heparin for anticoagulation during workup- will start low dose WITH bolus. -Give 5 mg of IV Lopressor now Repeat echocardiogram to reassess LV systolic function. Consider ischemic evaluation with cardiac cath next week once optimized from a volume standpoint. Case discussed with Dr. Pacheco. Further recommendations pending assessment. I spent a total of 40 minutes on the date of service in preparation, delivery, and documentation of the care provided to the patient excluding any time spent in the performance of separately billed services. MATTHEW Nunez Department of Cardiology, [facility] This chart was completed in part utilizing Speech Voice Recognition Software. Grammatical errors, random word insertions, pronoun errors, and incomplete sentences are an occasional consequence of this system due to software limitations, ambient noise, and hardware issues. Any formal questions or con cerns about the content, text, or information contained within the body of this dictation should be directly addressed to the provider for clarification. Supervising Physician Co-Signing Physician Notes Patient was seen and personally examined. Full plan and assessment as above in addition to below. Care and management discussed in detail with advanced provider and personally endorsed 82-year-old female with acute hospitalization 10/13/2023 with Pseudomonas bacteremia, complicated urinary tract infection with sepsis. 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 Patient underwent revision in beta-sav to metoprolol succinate 25 mg twice per day and managed conservatively. Repeat echocardiogram demonstrated improved LV systolic function and patient discharged yesterday after completion of treatment of infectious process Patient today developed acute dyspnea and respiratory distress while walking to bathroom. Presented to the emergency room and pulmonary edema. Responded to IV Lasix and BiPAP administration Rhythm on presentation atrial tachycardia with rapid response. Patient seen by cardiology and rhythm converted to sinus rhythm with 5 mg IV metoprolol though with intermittent bursts of atrial tachycardia Echocardiogram demonstrates worsening wall motions involving inferior and apical septum and inferior wall. Differential still TakoTsubo cardiomyopathy versus multivessel coronary disease Plan as outlined will increase beta-sav therapy to control atrial arrhythmias. Continue IV diuretics. Anticoagulation initiated with IV heparin May warrant cardiac catheterization early next week Atrial tachycardia is troublesome and been observed prior to past hospitalizations. Borderline tachybradycardia syndrome present maintain on telemetry with increased beta-sav therapy I spent a total of 30 minutes on the date of service in preparation, delivery, and documentation of the care provided to the patient excluding any time spent in the performance of separate History of Present Illness Reason for Consultation: CHF Requesting Physician: Kaylynn crum Attending Physician: Heladio Elise DO History of Present Illness Medically complex 82-year-old female with recent admission from 10/13/2023 to 10/22/2019 for secondary to urosepsis and Pseudomonas bacteremia. Infectious disease was consulted and antibiotic recommendations were made. Echocardiogram on 10/15 demonstrating severely reduced LV systolic function with wall motion abnormality suggestive of stress-induced cardiomyopathy (Takotsubo). Repeat echocardiogram on 10/18 showed improvement in LV systolic function of 50 to 55%. EKG on presentation without acute ST segment change. Troponin peaked on 10/13/2023 at 1293.1, downtrending. The following medication changes were made: Metoprolol tartrate changed to metoprolol succinate 25 mg twice daily. Amlodipine discontinued in favor of losartan 12.5 mg daily. Euvolemic on exam, no loop diuretic was recommended. Aspirin and statin continued. Represents today after becoming acutely short of breath last evening when walking to the bathroom. Developed chest pressures. Daughter present. EMS was summoned. Patient was hypoxic in the field and placed on oxygen therapy. In the emergency department patient required BiPAP. Appeared hypervolemic on exam and given 40 mg of IV Lasix. Started on IV Lasix 40 mg BID. EKG: Atrial tach vs atypical atrial flutter 115 bpm Telemetry: Irregular rhythm, tachycardic rates- possible atypical atrial flutter. 90-110s bpm Labs: CBC stable. D-dimer elevated 2049. Renal function stable. Potassium 3.5. Magnesium pending. BNP 3802. high-sensitivity troponin minimally elevated, 38.4--improved compared to prior admission. Chest x-ray: Pulmonary edema with small pleural effusion Upon entrance into the room patient resting in bed. Daughter at bedside. Notes ongoing shortness of breath but improved since admission. No longer having any chest discomfort. Denies palpitations. No lightheadedness or dizziness. Orthopnea resolved. Does have some lower extremity edema above her baseline. No fever, chills, cough, hematochezia, melena, or hemoptysis. Problem list: Early signs of tachybradycardia syndrome Paroxysmal atrial tachycardia Moderate aortic insufficiency Hypertension Dyslipidemia Hyperparathyroidism, status post parathyroidectomy Prediabetes Stage III chronic kidney disease Peripheral arterial disease Peripheral neuropathy History of tobacco use GERD Recurrent UTIs Bladder tumor Osteoporosis Social History: Reformed smoker. No alcohol. . Four children. 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 Allergies Allergy/AdvReac Type Severity Reaction Status Date / Time No Known Allergies Allergy Verified 10/23/23 07:10 Home Medications Medication Instructions Recorded Confirmed Type multivitamin 1 tab PO QAM 05/03/18 10/23/23 History omeprazole 20 mg tablet,delayed 20 mg PO BID 05/03/18 10/23/23 History release dorzolamide 22.3 mg-timolol 6.8 1 drp OPB HS 06/01/18 10/23/23 History mg/mL eye drops (Cosopt) duloxetine 60 mg capsule,delayed 60 mg PO DAILY 06/01/18 10/23/23 History release (Cymbalta) latanoprost 0.005 % eye drops 1 drp OPB [facility] 06/01/18 10/23/23 History (Xalatan) aspirin 81 mg tablet,delayed 81 mg PO QAM 06/24/20 10/23/23 History release (Ed Low Dose Aspirin) calcitriol 0.5 mcg capsule 1 mcg PO QAM 09/25/23 10/23/23 History rosuvastatin 10 mg tablet 10 mg PO HS 09/25/23 10/23/23 History tamsulosin 0.4 mg capsule (Flomax) 0.4 mg PO DAILY kidney stone #30 10/07/23 10/23/23 Rx caps latanoprostene bunod 0.024 % eye 1 drp OPB HS 10/13/23 10/23/23 History drops (Vyzulta) losartan 25 mg tablet 12.5 mg (1/2 x 25 mg) PO QAM 30 10/22/23 10/23/23 Rx days #15 tabs metoprolol succinate 25 mg 25 mg PO BID 30 days #60 tabs 10/22/23 10/23/23 Rx tablet,extended release 24 hr phenazopyridine 100 mg tablet 100 mg PO TID 10/23/23 10/23/23 History Patient History Medical History Nephrolithiasis History of hydronephrosis Closed fracture of distal end of right fibula Glaucoma Bilateral tinnitus Chronic pain both feet and legs Neuropathy BOTH FEET AND LEGS Hyperlipidemia H/O parathyroidectomy Surgical History Hx of bilateral cataract extraction Hx of cholecystectomy History of back surgery lower Family History Other Cancer Social History Smoking Status: Never smoker Tobacco Type: Cigarettes Second Hand Exposure: No; Do You Dip or Chew Tobacco: No; Tobacco Cessation Education Requested by Patient: No Hx Alcohol Use: No Hx Substance Use: No Preferred Language: Fusion Antibodiesonese French Communication Ability: Effective Visual Impairment: No Limitations Hearing Ability: Normal Automotive Tire Tester Required: No Beliefs That Will Affect Care: None marital status: / Current Living Situation: Family Current Living Situation Comment: lives with daughter How many Children do You have: 2 Other Information That Helps Us Care for You: No Feels Safe at Home: Yes Safety Concerns: Feels Safe At This Time Assistive Devices: Walker Results & Data Vital Signs (Past 12 Hours) Vital Signs Temp Pulse Pulse Resp BP BP Pulse Ox 10/23/23 10:39 96 H 18 137/75 94 10/23/23 10:00 113 H 24 131/77 96 10/23/23 09:00 116 H 22 136/83 95 10/23/23 08:57 115 H 10/23/23 07:00 109 H 20 137/81 94 10/23/23 06:50 118 H 18 93 10/23/23 05:58 121 H 24 95 10/23/23 05:10 92 10/23/23 05:00 10/23/23 05:00 91 10/23/23 05:00 36.5 C 132 H 30 H 165/130 H 92 10/23/23 05:00 10/23/23 04:54 130 H O2 Del Method O2 Flow Rate FiO2 10/23/23 10:39 BiPAP 10/23/23 10:00 10/23/23 09:00 10/23/23 08:57 10/23/23 07:00 BiPAP 10/23/23 06:50 30 10/23/23 05:58 30 10/23/23 05:10 Nasal Cannula 2 10/23/23 05:00 Nasal Cannula 10/23/23 05:00 Nasal Cannula 2 10/23/23 05:00 Nasal Cannula 2 10/23/23 05:00 Nasal Cannula 2 10/23/23 04:54
[2023-10-23] MEDS: ASPIRIN 81 MG ECTAB PO SCH (11:20)
[2023-10-23] MEDS: CALCITRIOL 0.25 MCG CAPSULE PO SCH (11:20)
[2023-10-23] MEDS: DULoxetine HCL 60 MG CAP PO SCH (11:21)
[2023-10-23] MEDS: ENOXAPARIN INJ 40 MG/0.4 ML SYR SQ SCH (11:22)
[2023-10-23] MEDS: FUROSEMIDE 40 MG/4 ML VIAL IV SCH (11:23)
[2023-10-23] MEDS: LOSARTAN POTASSIUM 25 MG TAB PO SCH (11:24)
[2023-10-23] MEDS: LATANOPROST 0.005% OP SOLN 2.5 ML BTL OPB SCH (11:24)
[2023-10-23] MEDS: METOPROLOL SUCC 25MG EXT REL TAB PO SCH ×2 (11:25→15:44)
[2023-10-23] MEDS: PANTOprazole 40 MG TAB PO SCH (11:25)
[2023-10-23] MEDS: TAMSULOSIN HCL 0.4 MG CAP PO SCH (11:25)
[2023-10-23] MEDS: MULTIVITAMIN TAB PO SCH (11:25)
[2023-10-23 11:52] LABS: Magnesium 1.4 mg/dl (1.7-2.4)
[2023-10-23] MEDS: METOPROLOL TARTRATE 1 MG/ML VIAL IV STA (12:29)
[2023-10-23] MEDS: POTASSIUM CHLORIDE CRTAB 20 MEQ TABCR PO STA (12:29)
[2023-10-23] MEDS: INSULIN ASPART PER UNIT CHARGE SC SCH (13:41)
[2023-10-23] MEDS ORDERED: Heparin IV Adult Wt-Based Low-Dose w/ INITIAL Bolus Protocol IV STA (13:52)
[2023-10-23] MEDS: HEPARIN SOD (PORCINE) 1000 UNIT/ML IV ONE (15:44)
[2023-10-23] MEDS: MAGNESIUM OXIDE 400 MG TAB PO SCH (15:44)
[2023-10-23] MEDS: HEPARIN SODIUM/DEXTROSE 25,000 UNITS/500 ML BAG IV SCH (15:44)
[2023-10-23] MEDS: OPTIRAY 320 125ml IV ONE (16:27)
--- NOTE | 2023-10-23 16:44 | CT Scan Report ---
CT ANGIOGRAM OF THE CHEST CLINICAL HISTORY: Dyspnea COMPARISON STUDY: Chest x-ray dated 10/23/2023. Chest CT dated 09/04/2022. TECHNIQUE: Following the IV administration of 116 cc of Optiray 320, CT angiogram of the chest was pe rformed from the upper abdomen to the thoracic inlet utilizing the pulmonary embolus protocol. Images are reviewed in the axial, sagittal, and coronal planes. 3-D MIPS images are created and assessed. I V contrast was administered without complication. A dose lowering technique was utilized adhering to the principles of ALARA. CT DOSE: 658.8 mGy.cm FINDINGS: Thyroid: Imaged portions of the thyroid gland are normal in size and attenuation. Thoracic aorta: There is advanced atherosclerotic calcification of the thoracic aorta, which is wilson l in caliber and demonstrates standard 3-vessel arch anatomy. No dissection is seen. Pulmonary vasculature: The pulmonary trunk is dilated, measuring 3.2 cm in diameter. This suggests pu lmonary artery hypertension. There are no filling defects identified in main, lobar, or segmental pul monary branches to suggest pulmonary embolus. Heart: The heart is mildly enlarged and without pericardial effusion. There are coronary artery calci fications. Lungs and pleural spaces: There are small layering pleural effusions with dependent consolidation. Th e trachea and central airways are clear. A 4 mm pulmonary nodule at the right apex on image #157 is u nchanged. Mediastinum: There is no mediastinal lymphadenopathy. Inna: Clear. Axillae: There is no axillary lymphadenopathy. Upper abdomen: Partially visualized upper abdominal viscera is within normal limits. Skeletal structures: The skeletal structures are osteopenic. Degenerative change is noted in the shou lders and spine. No lytic or blastic bony lesions are seen. IMPRESSION: 1. There is no evidence of pulmonary embolus in the main, lobar, or segmental pulmonary arteries. 2. Layering pleural effusions with dependent consolidation. 3. Cardiomegaly with evidence of pulmonary artery hypertension. 4. Additional findings as above. ACT 112: Negative or not required by law. Electronically signed by: Usama Jang M.D. 10/23/2023 4:42 PM
--- OUTSIDE RECORDS SUMMARY | 2023-10-23 16:53 | External Medical Summary | Summary of Care ---
Author Name Unknown Organization [facility] Address [address] [facility] [address] Phone [phone] Care Team Providers Care Maintenance Porter Name Role Phone Toya Wu DO Primary Care Provider [phone] Encounter Details Date Type Department Care Team (Late st Contact Info) Description 10/16/2023 Result Scan Unspecified Department De Berger DO [address] [place] [address] <No scans attached> Allergies No known active allergiesdocumented as of this encounter (statuses as of 10/20/2023) Medications Medication Sig Dispensed Refills Start Date [...] as of this encounter (statuses as of 10/20/2023) Active Problems Problem Noted Date Diagnosed Date [...] as of this encounter (statuses as of 10/20/2023) Resolved Problems Problem Noted Date Diagnosed Date [...] as of this encounter (statuses as of 10/20/2023) Immunizations Name Administration Dates Next Due COVID-19 [...] Description 11/02/2023 2:30 PM EDT Imaging Radiology, [facility] [address] [address] 01/26/2024 1:30 PM EDT Office Visit Cardiology, [facility] [address] [place] [address] Megan Villarreal CRNP [address] [place] [address] 03/08/2024 1:20 PM EST Office Visit Family [facility] [address] [place] [id number] Toya Wu DO [address] [place] [address] Health Maintenance Due Date Last Done Comments Zoster Vaccines (2 of 3) 04/18/2014 02/21/2014 *BISPHONATE OR OTHER ACCEPTABLE MEDICATION NEEDED FOR OSTEOPOROSIS (REFER TO SMARTSET #1146) 03/26/2019 DXA Scan 10/24/2022 10/24/2020, 12/13, 11/06/2014, Additional history exists Albumin/Creatinine Ratio 11/15/2022 11/15/2021 COVID-19 Vaccine ( season) 2022 02/06/2021, 06/30/2020, 06/09/2020 Influenza Vaccine (FLU shot) (#1) 2023 12/23/2022, 03/25/2022, 01/22/2021, Additional history exists Depression Screening 02/26/2024 02/25/2023 GFR 02/28/2024 08/28/2023, 02/11, 09/30/2022, Additional history exists HbA1c 08/27/2024 08/28/2023, 02/11, 08/10/2006, Additional history exists DTaP,Tdap,and Td Vaccines (2 - Td or Tdap) 10/09/2030 10/09/2020, 05/03/2010 Pneumococcal Vaccine: 65+ Years Completed 10/27/2014, 10/05/2013 VITAMIN D LEVEL ONCE IN A LIFETIME-USE SMARTSET# [id number] Completed 02/25/2023, 08/07/2022, 02/19/2017, Additional history exists HPV (Gardasil) Vaccine Aged Out No lo nger eligible based on patient's age to complete this topic Hepatitis B Vaccine Aged Out No longe r eligible based on patient's age to complete this topic MENINGOCOCCAL (MENACTRA/MENVEO) Aged Out No longer eligible based on patient's age to complete this topic documented as of this encounter Medical Devices Not on filedocumented as of this encounter Procedures Procedure Name Priority Date/Time Associated Diagnosis Comments RADIOLOGY SCANNED RESULT 10/16/2023 documented in this encounter Results * RADIOLOGY SCANNED RESULT (10/16/2023) 10/16/2023 De Berger DO DIAGNOSTIC RADIOLOG Y SERVICES documented in this encounter Advance Directives * [...] Power of Attor brenna? No Care Teams Maintenance Porter Relationship Specialty Start Date End Date Toya Wu DO [address] [place] [address] PCP - General Family Medicine 02/25/23 documented as of this encounter
--- OUTSIDE RECORDS SUMMARY | 2023-10-23 16:53 | External Medical Summary | Summary of Care ---
Author Name Unknown Organization [facility] Address [address] [place] [place] [address] Phone [phone] Care Team Providers Care Septic Tank Servicer Name Role Phone Toya Wu DO Primary Care Provider [phone] Encounter Details Date Type Department Care Team (Late st Contact Info) Description 10/16/2023 Population Health External Data Unspecified Department Allergies No known active allergiesdocumented as of this encounter (statuses as of 10/16/2023) Medications Medication Sig Dispensed Refills Start Date [...] as of this encounter (statuses as of 10/16/2023) Active Problems Problem Noted Date Diagnosed Date [...] as of this encounter (statuses as of 10/16/2023) Resolved Problems Problem Noted Date Diagnosed Date [...] as of this encounter (statuses as of 10/16/2023) Immunizations Name Administration Dates Next Due COVID-19 mRNA, LNP-s, No Pre serve, 2-Dose Series ([employer]) 02/06/2021,06/30/2020,06/09/2020 Pneumococcal Conjugate Vacc, 13 Valent (Prevnar) [...] Description 11/02/2023 2:30 PM EDT Imaging Radiology, [facility] [address] [facility] [place] [address] 01/26/2024 1:30 PM EDT Office Visit Cardiology, [facility] [address] [facility] [place] [address] Megan Villarreal CRNP [address] [place] [address] [place] [address] 03/08/2024 1:20 PM EST Office Visit Family [facility] [address] [place] [address] Toya Wu DO [address] [place] [address] Health Maintenance Due Date Last Done Comments [...] D LEVEL ONCE IN A LIFETIME-USE SMARTSET# [id number] Completed 02/25/2023, 08/07/2022, 02/19/2017, Additional history exists [...] filedocumented as of this encounter Advance Directives * Full Code [...] Power of Attor brenna? No Care Teams Septic Tank Servicer Relationship Specialty Start Date End Date Toya Wu DO [address] [place] [address] PCP - General Family Medicine 02/25/23 documented as of this encounter
--- NOTE | 2023-10-23 20:31 | Electrocardiogram Report ---
Test Reason : Blood Pressure : / mmHG Vent. Rate : 129 BPM Atrial Rate : 000 BPM P-R Int : 000 ms QRS Dur : 078 ms QT Int : 342 ms P-R-T Axes : 000 037 099 degrees QTc Int : 501 ms Supraventricular tachycardia Low voltage QRS Abnormal ECG When compared with ECG of 16-OCT-2023 17:11, Supraventricular tachycardia has replaced Sinus rhythm Vent. rate has increased BY 58 BPM Confirmed by Todd Xie ([id number]) on 10/23/2023 8:31:22 PM Referred By: REFERRED SELF Confirmed By:Tao Xie
--- NOTE | 2023-10-23 20:31 | Electrocardiogram Report ---
Test Reason : Blood Pressure : / mmHG Vent. Rate : 115 BPM Atrial Rate : 000 BPM P-R Int : 000 ms QRS Dur : 084 ms QT Int : 368 ms P-R-T Axes : 000 009 071 degrees QTc Int : 509 ms Supraventricular tachycardia T wave abnormality, consider anterior ischemia Abnormal ECG When compared with ECG of 23-OCT-2023 05:39, (unconfirmed) Nonspecific T wave abnormality no longer evident in Inferior leads Confirmed by Todd Xie ([id number]) on 10/23/2023 8:31:46 PM Referred By: Heladio Elise Confirmed By:Tao Xie
[2023-10-23] MEDS: ROSUVASTATIN CALCIUM 10 MG TAB PO SCH (21:11)
[2023-10-23] MEDS: DORZOLAMIDE/TIMOLOL 22.3/6.8MG/ML 10 ML BTL OPB SCH (21:11)
[2023-10-23 22:34] LABS: ANTI-Xa, UFH(UnfractionatedHep 0.94 IU/ml (0.3-0.7)
[2023-10-24 07:30] LABS: Hematocrit (blood only) 37.9 % (37.0-47.0); Hemoglobin 12.3 g/dl (12.0-16.0); Mean Corpuscular Hemoglobin 30.4 pg (25.0-34.0); Mean Corpuscular Hgb Conc 32.5 g/dL (32.0-36.0); Mean Corpuscular Volume 93.8 fL (80.0-100.0); Mean Platelet Volume 9.8 fL (9.4-12.4); Platelet Count 262 K/uL (130-400); RDW Coefficient of Variation 13.2 % (11.5-14.5); RDW Standard Deviation 45.1 fL (36.4-46.3); Red Blood Count 4.04 M/uL (4.20-5.40); White Blood Count 8.63 K/ul (4.8-10.8)
[2023-10-24 07:55] LABS: ANTI-Xa, UFH(UnfractionatedHep 0.29 IU/ml (0.3-0.7)
[2023-10-24 07:59] LABS: BUN Creatinine Ratio 16.7 (10-20); Calcium 8.1 mg/dl (8.6-10.3); Est GFR (Non-African American) 59.5 ml/min; Magnesium 1.4 mg/dl (1.7-2.4); Potassium 3.6 mmol/L (3.5-5.1)
[2023-10-24] MEDS: POTASSIUM CHLORIDE CRTAB 20 MEQ TABCR PO SCH (08:57)
--- NOTE | 2023-10-24 10:16 | Cardiology Progress Note ---
Date of Service October 24, 2023 Assessment & Plan (1) Acute on chronic combined systolic and diastolic heart failure: (2) Hypoxia: (3) Atrial tachycardia, paroxysmal: Plan Medically complex 82-year-old female with recent hospitalization 10/13/23 with bacteriemia, complicated UTI with sepsis, cardiovascular findings consistent with possible Takotsubo versus multivessel coronary disease, EF recovered prior to discharge, now admitted for acute on chronic combined systolic and diastolic CHF. EKG on arrival revealing possible atrial tach versus an atypical atrial flutter. 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 Scott. I spent a total of 35 minutes on the date of service in preparation, delivery, and documentation of the care provided to this patient excluding any time spent in the performance of separately billed services. This visit was a split-shared visit with the substantial portion of the decision making performed by the supervising cloth printing inspector/billing provider. Admission and Anticipated Discharge Date Admission Date: October 23, 2023 Supervising Physician Co-Signing Physician Notes I have personally performed a history and physical examination on the patient. I have reviewed the advance practitioner's documentation, and I agree with, and take responsibility for the plan of care. I spent a total of 35 minutes on the date of service in preparation, delivery, and documentation of the care provided to this patient, excluding any time spent in the performance of separately billed services. Subjective On evaluation, patient resting comfortably in bed. States she overall feels well. Denies chest pain, shortness of breath, lightheadedness. Review of Systems Review of Systems: CONSTITUTIONAL: No change in weight, No weakness, No fatigue and No fevers, No sweats or chills. PULMONARY: No cough, sputum, or hemoptysis, No wheezing, No shortness of breath and No recent change in breathing. CARDIOVASCULAR: No chest pain, No dyspnea on exertion, No edema, No palpitations and No syncope. GASTROINTESTINAL: No abdominal pain, No change in bowel habits, No significant heartburn, No nausea, No vomiting, No diarrhea, No constipation, No blood in stools or black tarry stools. No dysphagia. HEMATOLOGIC: No abnormal bleeding and No bruising. NEUROLOGICAL: Normal balance, No headaches and No weakness. Physical Exam Physical Exam: General: No acute distress. A+Ox3. HEENT: Normocephalic. Atraumatic. PERRL. EOMI. Conjunctiva and sclera clear. NECK: No carotid bruits. No JVD. Carotid upstrokes are brisk. Heart: RRR. S1 and S2 noted. No murmur. No rubs or gallops. PMI non displaced. Lungs: Clear to auscultation. No wheezes. No rhonchi. No rales. Abdomen: Normal bowel sounds. Soft. Nontender. No masses or organomegaly. No abdominal bruits. Extremities: No edema. No clubbing or cyanosis. Pulses: radial=2/4, posterior tibial=2/4, dorsalis pedis = 2/4. NEURO: No focal deficits. PSYCH: Appropriate affect and insight. Results & Data Vital Signs (Past 12 Hours) Vital Signs Temp Pulse Pulse Resp BP Pulse Ox O2 Del Method 10/24/23 08:55 109/48 L 10/24/23 08:50 100/60 10/24/23 08:47 Nasal Cannula 10/24/23 07:25 36.6 C 84 16 99/59 L 96 Nasal Cannula 10/24/23 07:24 81 10/24/23 03:15 36.8 C 92 H 16 109/64 95 Nasal Cannula 10/23/23 22:45 36.8 C 94 H 20 116/74 97 Nasal Cannula O2 Flow Rate 10/24/23 08:55 10/24/23 08:50 10/24/23 08:47 3 10/24/23 07:25 3 10/24/23 07:24 10/24/23 03:15 3 10/23/23 22:45 4 Laboratory Results Cardiac Enzymes 10/23/23 Range/Units 09:48 B-Natriuretic Peptide 3802 H (0-100) pg/ml Coagulation 10/23/23 Range/Units 09:48 B-Natriuretic Peptide 3802 H (0-100) pg/ml CBC 10/24/23 Range/Units 07:09 WBC 8.63 (4.8-10.8) K/ul RBC 4.04 L (4.20-5.40) M/uL Hgb 12.3 (12.0-16.0) g/dl Hct 37.9 (37.0-47.0) % Plt Count 262 (130-400) K/uL Comprehensive Metabolic Panel 10/24/23 Range/Units 07:09 Sodium 142 (136-145) mmol/L Potassium 3.6 (3.5-5.1) mmol/L Chloride 96 L (98-107) mmol/L Carbon Dioxide 39 H (21-32) mmol/L BUN 15 (6-23) mg/dl Creatinine 0.90 (0.6-1.2) mg/dl Glucose 129 H (70-99(Fasting)) mg/dl Calcium 8.1 L (8.6-10.3) mg/dl Intake and Output 10/23/23 10/24/23 10/24/23 22:59 06:59 14:59 Intake Total 411.5 / 528.25 116.75 / 528.25 101.200 / 101.200 Output Total 1200 / 2350 300 / 2350 Balance -788.5 / -1821.75 -183.25 / -1821.75 100.200 / 100.200 Intake: IV 51.5 / 118.25 66.75 / 118.25 101.200 / 101.200 Heparin Sodium/Dextrose 25,000 51.5 / 118.25 66.75 / 118.25 101.200 / 101.200 units In 500 ml @ 550 UNITS/HR 11 mls/hr IV .Q24H [facility] Rx#: [id number] Oral 360 / 410 50 / 410 Output: Urine Amount (Catheter) 1200 / 2350 300 / 2350 Salazar/Indwelling 1200 / 2350 300 / 2350 # Bowel Movements Other: Weight 72.5 kg Weight Measurement Method Built in [facility]
[2023-10-24] MEDS: MAGNESIUM SULFATE / D5W 1 GM/100 ML BAG IV SCH (10:33)
[2023-10-24] MEDS: ACETAMINOPHEN 325 MG TAB PO PRN (11:09)
--- NOTE | 2023-10-24 14:56 | Hospitalist Progress Note ---
Date of Service October 24, 2023 Assessment & Plan (1) Acute on chronic combined systolic and diastolic heart failure: (2) Tachy-bob syndrome: (3) Atrial tachycardia, paroxysmal: (4) Ureteral stent present: (5) Bladder mass: (6) Diabetes mellitus type 2, uncomplicated: Plan Patient with acute respiratory failure due to acute systolic heart failure most likely due to variable rates including bradycardia and tachycardia. With patient's variable heart rates she is at high risk for further acute episodes of hypoxia and pulmonary edema. Requires hospital level monitoring, specialty consultation and interventions. Communication with cardiology, considering possible intervention on Thursday Continue diuresis Hold losartan due to low blood pressure Replace magnesium Continue IV heparin Continue telemetry monitoring Updated daughter, Ann-Marie, via phone Admission and Anticipated Discharge Date Admission Date: October 23, 2023 Subjective Patient states overall she is feeling somewhat improved. Breathing is improved. Physical Exam Physical Exam: Constitutional: Alert HEENT: Mucous membranes moist. Lungs: Clear to auscultation, decreased, few crackles at bases CV: S1-S2, regular Abdomen: Soft, nontender, nondistended Extremities: Lower extremity edema improved Neuro: No focal deficits Psych: Cooperative, normal mood Results & Data Results & Data Vital Signs (Past 12 Hours) Vital Signs Temp Pulse Pulse Resp BP BP Pulse Ox 10/24/23 14:36 65 10/24/23 11:24 36.5 C 83 18 99/65 L 94 10/24/23 11:17 95 10/24/23 08:55 109/48 L 10/24/23 08:50 100/60 10/24/23 08:47 10/24/23 07:25 36.6 C 84 16 99/59 L 96 10/24/23 07:24 81 10/24/23 03:15 36.8 C 92 H 16 109/64 95 O2 Del Method O2 Flow Rate 10/24/23 14:36 10/24/23 11:24 Nasal Cannula 1 10/24/23 11:17 Nasal Cannula 3 10/24/23 08:55 10/24/23 08:50 10/24/23 08:47 Nasal Cannula 3 10/24/23 07:25 Nasal Cannula 3 10/24/23 07:24 10/24/23 03:15 Nasal Cannula 3 Diagnostic Findings Reviewed imaging, laboratory and diagnostic studies. Pertinent findings as below. Echocardiogram report reviewed, ejection fraction 40 to 45%, decreased from previous Reviewed CTA report, negative for PE Magnesium 1.4 Telemetry heart rates 40s to 90s
[2023-10-24 16:47] LABS: ANTI-Xa, UFH(UnfractionatedHep 0.16 IU/ml (0.3-0.7)
[2023-10-24] MEDS: HEPARIN SOD (PORCINE) 1000 UNIT/ML IV ONE (18:12)
[2023-10-24] MEDS: METOPROLOL SUCC 25MG EXT REL TAB PO SCH (20:24)
[2023-10-25 00:07] LABS: ANTI-Xa, UFH(UnfractionatedHep 0.34 IU/ml (0.3-0.7)
[2023-10-25 06:08] LABS: BUN Creatinine Ratio 23.4 (10-20); Calcium 7.9 mg/dl (8.6-10.3); Creatinine Clr Calc Pharmacy 38.1 ml/min; Est GFR (African American) 53.6 ml/min; Est GFR (Non-African American) 46.2 ml/min; Magnesium 2.3 mg/dl (1.7-2.4); Phosphorus 3.8 mg/dl (2.5-4.9); Potassium 3.9 mmol/L (3.5-5.1)
[2023-10-25 06:16] LABS: ANTI-Xa, UFH(UnfractionatedHep 0.32 IU/ml (0.3-0.7)
[2023-10-25] MEDS: CALCIUM GLUCONATE 1,000 MG/60 ML BAG IV SCH (08:48)
--- NOTE | 2023-10-25 10:31 | Cardiology Progress Note ---
Date of Service October 25, 2023 Assessment & Plan (1) Acute on chronic combined systolic and diastolic heart failure: (2) Hypoxia: (3) Atrial tachycardia, paroxysmal: Plan Medically complex 82-year-old female with recent hospitalization 10/13/23 with bacteriemia, complicated UTI with sepsis, cardiovascular findings consistent with possible Takotsubo versus multivessel coronary disease, EF recovered prior to discharge, now admitted for acute on chronic combined systolic and diastolic CHF. EKG on arrival revealing possible atrial tach versus an atypical atrial flutter. 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 Scott. I spent a total of 30 minutes on the date of service in preparation, delivery, and documentation of the care provided to this patient excluding any time spent in the performance of separately billed services. This visit was a split-shared visit with the substantial portion of the decision making performed by the supervising surface miner/billing provider. Admission and Anticipated Discharge Date Admission Date: October 23, 2023 Supervising Physician Co-Signing Physician Notes I have personally performed a history and physical examination on the patient. I have reviewed the advance practitioner's documentation, and I agree with, and take responsibility for the plan of care. I spent a total of 35 minutes on the date of service in preparation, delivery, and documentation of the care provided to this patient, excluding any time spent in the performance of separately billed services. Patient doing well today. She denies chest pain, dyspnea, or syncope. She denies any orthopnea lower extreme edema has been improving. We can transition to p.o. Lasix tomorrow 40 mg p.o. daily. Keep patient n.p.o. for left heart catheterization tomorrow. Patient denies any contrast allergies. Subjective On evaluation today states she overall feels well. Denies chest pain, palpitations, shortness of breath. Review of Systems Review of Systems: CONSTITUTIONAL: No change in weight, No weakness, No fatigue and No fevers, No sweats or chills. PULMONARY: No cough, sputum, or hemoptysis, No wheezing, No shortness of breath and No recent change in breathing. CARDIOVASCULAR: No chest pain, No dyspnea on exertion, No edema, No palpitations and No syncope. GASTROINTESTINAL: No abdominal pain, No change in bowel habits, No significant heartburn, No nausea, No vomiting, No diarrhea, No constipation, No blood in stools or black tarry stools. No dysphagia. HEMATOLOGIC: No abnormal bleeding and No bruising. NEUROLOGICAL: Normal balance, No headaches and No weakness. Physical Exam Physical Exam: General: No acute distress. A+Ox3. HEENT: Normocephalic. Atraumatic. PERRL. EOMI. Conjunctiva and sclera clear. NECK: No carotid bruits. No JVD. Carotid upstrokes are brisk. Heart: RRR. S1 and S2 noted. No murmur. No rubs or gallops. PMI non displaced. Lungs: Clear to auscultation. No wheezes. No rhonchi. No rales. Abdomen: Normal bowel sounds. Soft. Nontender. No masses or organomegaly. No abdominal bruits. Extremities: No edema. No clubbing or cyanosis. Pulses: radial=2/4, posterior tibial=2/4, dorsalis pedis = 2/4. NEURO: No focal deficits. PSYCH: Appropriate affect and insight. Results & Data Vital Signs (Past 12 Hours) Vital Signs Temp Pulse Resp BP Pulse Ox O2 Del Method 10/25/23 07:35 36.4 C L 82 18 110/63 91 Room Air 10/25/23 03:35 36.9 C 83 18 129/50 L 92 Room Air 10/24/23 23:03 36.8 C 88 18 102/59 L 91 Room Air Laboratory Results Comprehensive Metabolic Panel 10/25/23 Range/Units 05:06 Sodium 138 (136-145) mmol/L Potassium 3.9 (3.5-5.1) mmol/L Chloride 95 L (98-107) mmol/L Carbon Dioxide 36 H (21-32) mmol/L BUN 26 H (6-23) mg/dl Creatinine 1.11 (0.6-1.2) mg/dl Glucose 122 H (70-99(Fasting)) mg/dl Calcium 7.9 L (8.6-10.3) mg/dl Intake and Output 10/24/23 10/25/23 10/25/23 22:59 06:59 14:59 Intake Total 805.1 / 1699.899 167.766 / 1699.899 120 / 120 Output Total 200 / 626 225 / 626 Balance 605.1 / 1073.899 -57.234 / 1073.899 120 / 120 Intake: IV 315.1 / 769.899 167.766 / 769.899 120 / 120 Calcium Gluconate 1,000 mg In 120 / 120 60 ml @ 240 mls/hr IV Q15M [facility] Rx#:[id number] Heparin Sodium/Dextrose 25,000 125.1 / 394.066 167.766 / 394.066 units In 500 ml @ 700 UNITS/HR 14 mls/hr IV .Q24H [facility] Rx#: [id number] Magnesium Sulfate / D5w 1 gm In 190 / 375.833 100 ml @ 50 mls/hr IV Q2H [facility] Rx#:[id number] Oral 490 / 930 0 / 930 Output: Urine Amount (Catheter) 200 / 625 225 / 625 Salazar/Indwelling 200 / 625 225 / 625 Other: Weight 68.4 kg Weight Measurement Method Built in [facility] Diagnostic Findings Telemetry reviewed, sinus with PACs, heart rate 60-70s
--- NOTE | 2023-10-25 12:59 | Electrocardiogram Report ---
Test Reason : Blood Pressure : / mmHG Vent. Rate : 082 BPM Atrial Rate : 068 BPM P-R Int : 000 ms QRS Dur : 064 ms QT Int : 432 ms P-R-T Axes : 000 -21 159 degrees QTc Int : 504 ms Poor data quality, interpretation may be adversely affected Atrial fibrillation Low voltage QRS Septal infarct (cited on or before 24-OCT-2023) Abnormal ECG When compared with ECG of 24-OCT-2023 21:21, (unconfirmed) Previous ECG has undetermined rhythm, needs review Confirmed by Leno Becker ([id number]) on 10/25/2023 12:58:41 PM Referred By: Heladio Elise Confirmed By:Leno Becker
--- NOTE | 2023-10-25 13:00 | Electrocardiogram Report ---
Test Reason : Blood Pressure : / mmHG Vent. Rate : 089 BPM Atrial Rate : 069 BPM P-R Int : 000 ms QRS Dur : 070 ms QT Int : 432 ms P-R-T Axes : 000 000 114 degrees QTc Int : 525 ms Poor data quality, interpretation may be adversely affected Undetermined rhythm Low voltage QRS Septal infarct (cited on or before 24-OCT-2023) Abnormal ECG When compared with ECG of 23-OCT-2023 11:46, Current undetermined rhythm precludes rhythm comparison, needs review Nonspecific T wave abnormality now evident in Inferior leads Inverted T waves have replaced nonspecific T wave abnormality in Lateral leads Confirmed by Leno Becker ([id number]) on 10/25/2023 1:00:04 PM Referred By: Heladio Elise Confirmed By:Leno Becker
--- NOTE | 2023-10-25 14:32 | Hospitalist Progress Note ---
Date of Service October 25, 2023 Assessment & Plan (1) Acute on chronic combined systolic and diastolic heart failure: (2) Tachy-bob syndrome: (3) Atrial tachycardia, paroxysmal: (4) Ureteral stent present: (5) Bladder mass: (6) Diabetes mellitus type 2, uncomplicated: Plan Patient with acute on chronic heart failure in the setting of atrial tachycardia and sick sinus syndrome. Patient has not had any significant bradycardia with decrease in the metoprolol. Patient's blood pressure has improved somewhat with removing of the losartan and holding diuretics. Lower dose of metoprolol also started. Patient does have positive balance, give one-time dose of Lasix 20 mg IV today. Continue to dose Lasix daily Reviewed cardiology note, anticipate possible intervention tomorrow Remove Salazar catheter per patient request Continue IV heparin while awaiting possible cardiac intervention. Admission and Anticipated Discharge Date Admission Date: October 23, 2023 Subjective Patient feeling improved. However really wants Salazar catheter out Physical Exam Physical Exam: Constitutional: Alert, sitting in chair HEENT: Mucous membranes moist. Lungs: Decreased breath sounds, few crackles at bases CV: S1-S2, regular Abdomen: Soft, nontender, nondistended Extremities: No significant edema Neuro: No focal deficits Psych: Cooperative, normal mood Results & Data Results & Data Vital Signs (Past 12 Hours) Vital Signs Temp Pulse Resp BP Pulse Ox O2 Del Method 10/25/23 10:49 36.8 C 64 18 104/49 L 94 Room Air 10/25/23 07:35 36.4 C L 82 18 110/63 91 Room Air 10/25/23 03:35 36.9 C 83 18 129/50 L 92 Room Air Diagnostic Findings Reviewed imaging, laboratory and diagnostic studies. Pertinent findings as below. Creatinine 1.1 Glucose 102
[2023-10-25] MEDS: FUROSEMIDE INJ 20 MG/2 ML VIAL IV ONE (15:37)
[2023-10-26 07:49] LABS: ANTI-Xa, UFH(UnfractionatedHep 0.22 IU/ml (0.3-0.7); Partial Thromboplastin Ratio 1.2; Partial Thromboplastin Time 33 Seconds (21-31)
--- NOTE | 2023-10-26 09:48 | Cardiology Progress Note ---
Date of Service October 26, 2023 Assessment & Plan (1) Acute on chronic combined systolic and diastolic heart failure: (2) Hypoxia: (3) Atrial tachycardia, paroxysmal: Plan Medically complex 82-year-old female with recent hospitalization 10/13/23 with Pseudomonas aeruginosa bacteriemia due to complicated UTI with sepsis, cardiovascular findings consistent with possible Takotsubo versus multivessel coronary disease, EF recovered prior to discharge, now admitted for acute on chronic combined systolic and diastolic CHF. EKG on arrival revealing possible atrial tach versus an atypical atrial flutter. 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 Repeat EKG. -Updates provided to patient's daughter with whom she lives, Ann-Marie, by phone. Admission and Anticipated Discharge Date Admission Date: October 23, 2023 Subjective Patient seen in follow up of chief complain of shortness of breath. Denies acute complaints. Shortness of breath improved / resolved compared to presentation via the ED. Telemetry reveals SR with premature atrial contractions and a few short runs of nonsustained atrial tachycardia. Review of Systems Review of Systems: All systems reviewed & are unremarkable except as noted in HPI & below Physical Exam Constitutional: WD/WN, vitals as above Respiratory: normal respiratory effort, lungs clear to auscultation Cardiovascular: RRR, no murmur, no edema Gastrointestinal (Abdomen): normal bowel sounds, soft, nontender, no hepatosplenomegaly Neurologic: PERRL, EOMI, accommodation nl, no face palsy, no dysarthria Results & Data Vital Signs (Past 12 Hours) Vital Signs Temp Pulse Pulse Resp BP Pulse Ox O2 Del Method 10/26/23 06:58 36.8 C 80 18 121/63 90 Room Air 10/26/23 03:36 36.6 C 91 H 18 134/59 L 93 Room Air 10/26/23 01:03 74 10/25/23 22:50 36.6 C 90 18 132/73 93 Room Air Laboratory Results Coagulation 10/26/23 Range/Units 06:39 APTT 33 H (21-31) Seconds Intake and Output 10/25/23 10/26/23 10/26/23 22:59 06:59 14:59 Intake Total 222.433 / 542.433 0 / 542.433 168.7 / 168.7 Output Total 50 / 200 Balance 222.433 / 342.433 -50 / 342.433 168.7 / 168.7 Intake: IV 172.433 / 292.433 168.7 / 168.7 Heparin Sodium/Dextrose 25,000 172.433 / 172.433 168.7 / 168.7 units In 500 ml @ 700 UNITS/HR 14 mls/hr IV .Q24H [facility] Rx#: [id number] Oral 50 / 250 0 / 250 Output: Urine Amount (Catheter) 50 / 200 External 50 / 50 Other: # Unmeasured Voids 1 1 Weight 63.6 kg Weight Measurement Method Built in [facility] Diagnostic Findings Most recent EKG performed 10/24/2023 interpreted independently: Baseline artifact noted, difficult for me if atrial fibrillation present were sinus rhythm with premature atrial contractions. Telemetry at present appears to be sinus rhythm with premature atrial contractions.
--- NOTE | 2023-10-26 12:39 | Electrocardiogram Report ---
Test Reason : Blood Pressure : / mmHG Vent. Rate : 126 BPM Atrial Rate : 000 BPM P-R Int : 000 ms QRS Dur : 072 ms QT Int : 346 ms P-R-T Axes : 000 020 025 degrees QTc Int : 501 ms Poor data quality, interpretation may be adversely affected Sinus tachycardia Low voltage QRS Cannot rule out Anterior infarct (cited on or before 23-OCT-2023) Abnormal ECG When compared with ECG of 23-OCT-2023 04:57, Questionable change in initial forces of Anteroseptal leads Nonspecific T wave abnormality, worse in Inferior leads Confirmed by Leno Becker ([id number]) on 10/26/2023 12:38:49 PM Referred By: Heladio Elise Confirmed By:Leno Becker
--- NOTE | 2023-10-26 12:49 | Electrocardiogram Report ---
Test Reason : Blood Pressure : / mmHG Vent. Rate : 087 BPM Atrial Rate : 115 BPM P-R Int : 000 ms QRS Dur : 072 ms QT Int : 444 ms P-R-T Axes : 000 012 112 degrees QTc Int : 534 ms Poor data quality, interpretation may be adversely affected Atrial fibrillation Low voltage QRS Abnormal ECG When compared with ECG of 24-OCT-2023 21:28, Criteria for Septal infarct are no longer Present Nonspecific T wave abnormality no longer evident in Inferior leads Confirmed by Leno Becker ([id number]) on 10/26/2023 12:49:14 PM Referred By: Heladio Elise Confirmed By:Leno Becker
--- NOTE | 2023-10-26 14:11 | Hospitalist Progress Note ---
Date of Service October 26, 2023 Assessment & Plan (1) Acute on chronic combined systolic and diastolic heart failure: (2) Tachy-bob syndrome: (3) Atrial tachycardia, paroxysmal: (4) Ureteral stent present: (5) Bladder mass: (6) Diabetes mellitus type 2, uncomplicated: Plan Patient continues to have some intermittent tachycardia with decrease metoprolol rate. Bradycardia has improved. Communication with cardiology team, anticipate cardiac catheterization today. Continue other care as ordered Updated daughter via phone Admission and Anticipated Discharge Date Admission Date: October 23, 2023 Subjective Patient bit fatigued this morning but no chest pain. Noted did have some Increased rates overnight. No severe bradycardia Physical Exam Physical Exam: Constitutional: Alert HEENT: Mucous membranes moist. Lungs: Clear to auscultation, decreased, no wheezes rales or rhonchi CV: S1-S2, regular Abdomen: Soft, nontender, nondistended Extremities: No significant edema Neuro: No focal deficits Psych: Cooperative, normal mood Results & Data Results & Data Vital Signs (Past 12 Hours) Vital Signs Temp Pulse Resp BP Pulse Ox O2 Del Method 10/26/23 10:47 36.5 C 75 18 131/51 L 95 Room Air 10/26/23 06:58 36.8 C 80 18 121/63 90 Room Air 10/26/23 03:36 36.6 C 91 H 18 134/59 L 93 Room Air Diagnostic Findings Reviewed imaging, laboratory and diagnostic studies. Pertinent findings as below. Glucose reviewed
--- NOTE | 2023-10-26 14:39 | Pre Anesthesia Assessment ---
Date of Service October 26, 2023 Pre Sedation Assessment Vital Signs Temp Pulse Pulse Resp BP Pulse Ox O2 Del Method 10/26/23 10:47 97.7 F 75 18 131/51 L 95 Room Air 10/26/23 06:58 98.2 F 80 18 121/63 90 Room Air 10/26/23 03:36 97.9 F 91 H 18 134/59 L 93 Room Air 10/26/23 01:03 74 10/25/23 22:50 97.9 F 90 18 132/73 93 Room Air 10/25/23 19:43 98.1 F 107 H 18 104/66 91 Room Air 10/25/23 15:13 61 10/25/23 14:59 98.2 F 71 18 102/52 L 94 Room Air Cardiovascular + regular rate Respiratory + respiratory effort normal Pre-Sedation Airway Assessment Smoking Status: Never smoker Hx Sleep Apnea: No Hx Difficult Intubation: No Short, Thick Neck: No Oral Cavity: + WNL Mallampati Class: III ASA: ASA3 Procedure Planning Contraindications for Sedation: none Current Medications Reviewed: Yes Notes The planned sedation has been discussed with the patient. Informed Consent was obtained. I have identified the patient, determined the appropriateness of sedation and have assessed the patient immediately prior to the procedure. All medicine(s) and interventions are by my order.
[2023-10-26] MEDS: niCARdipine HCL INJ 2.5 MG/ML 10 ML AMP ONE (16:03)
[2023-10-26] MEDS: NITROGLYCERIN/D5W 100MCG/ML 20ML SYR ONE (16:04)
[2023-10-26] MEDS: HEPARIN (PORCINE) 1000 UNIT/ML 10 ML (CATH LAB USE ONLY) ONE (16:48)
[2023-10-26] MEDS: fentaNYL citrate PF 100 MCG/2 ML VIAL ONE (16:49)
[2023-10-26] MEDS: MIDAZOLAM HCL 1 MG/ML 2ML VIAL ONE (16:50)
[2023-10-26] MEDS: CLOPIDOGREL BISULFATE 300 MG TAB ONE (16:54)
[2023-10-26] MEDS: IODIXANOL (VISIPAQUE) 320 MG/ML 100ML IV ONE (16:55)
--- NOTE | 2023-10-26 17:09 | Post Anesthesia Assessment ---
Date of Service October 26, 2023 Post Sedation Assessment Vital Signs Temp Pulse Pulse Resp BP Pulse Ox O2 Del Method 10/26/23 14:58 77 137/57 L 94 Room Air 10/26/23 10:47 97.7 F 75 18 131/51 L 95 Room Air 10/26/23 06:58 98.2 F 80 18 121/63 90 Room Air 10/26/23 03:36 97.9 F 91 H 18 134/59 L 93 Room Air 10/26/23 01:03 74 10/25/23 22:50 97.9 F 90 18 132/73 93 Room Air 10/25/23 19:43 98.1 F 107 H 18 104/66 91 Room Air Recovery Score Activity: Moves 4 extremities Respiration: Deep Breath/Cough Circulation: +/-20% PreAnes Value Consciousness: Fully Awake Oxygen Saturation: O2 needed for >90% Discharge Sedation Level of Care: Fast Track Phase II Post Sedation Plan On clinical assessment, the patient appears to have tolerated the sedation without complications. Patient is recovering as anticipated. Patient will continue to be monitored by nursing and may be discharged when sedation discharge criteria are met per below protocol. Upon Completions of procedure up to 15 minutes continue every 5 minute vital signs and the P.A.R. score; then discharge to a Phase I or Fast Track to Phase II per the following guidelines: * Discharge Patient to appropriate Phase II area if PAR is 8 or greater or return to pre- procedure baseline. The post - procedure orders will be as directed. * If PAR score is less than 8 or not return to pre-procedure baseline then patient will follow Phase I monitoring till PAR is reached for Phase II. The Phase I may be done in procedure room or may call to secure a Phase I area. * If naloxone or flumazenil are used for reversal, hold in Phase I for continued monitoring from when last reversal dose was given for a minimum of 60 minutes or longer pending the nurse and/or physician discretion of patient condition before discharge to Phase II. Please call the Sedation Physician to re-evaluate and complete post-note for discharge to Phase II area. Do NOT discharge from procedure sedation or Phase 1 until post- sedation evaluation note is complete by procedure /sedation MD Sedation Discharge Instructions to be given to the patient at discharge to home.
--- NOTE | 2023-10-26 17:12 | Cardiac Catheterization ---
[facility] Data: Manager Statistical Cardiac Status Clinical evaluation leading to the procedure CAD Presenation: Non STEMI Anginal Classification: CCS IV Diagnostic Physicians Name: Todd Carlson MD Closure Device Recommendations: PCI without planned CABG Cardiac Cath Procedure Full Procedure Date October 26, 2023 Pre-Procedure Diagnosis Pre-Procedure Diagnosis: Acute Coronary Syndrome and Cardiomyopathy AUC Score AUC Score: 7 Post-Procedure Diagnosis Post-Procedure Diagnosis: Severe CAD and Successful PCI Procedure(s) Performed Procedure(s) Performed: Coronary Angiography and Left Heart Cath Seconds Inspector Todd Carlson MD Prototype Sewer(s) Toya Estimated Blood Loss Estimated Blood Loss: 15 Medication(s) Medication(s): Clopidogrel, Fentanyl, Heparin, Lidocaine 1%, Nicardipine, Nitroglycerin and Versed Summary of Findings Indication: Cardiomyopathy, heart failure Access: 6 Fr right radial artery Catheters: [place], diagnostic JL 3.5, 5 Fr EBU 3.5 guide Findings: LM -Short, almost separate ostium, normal caliber, no significant disease LAD -medium caliber, 30% proximal stenosis, 60 to 70% focal earlymid segment stenosis after takeoff of D1. Remainder of vessel without significant disease and extends around apex. 30% medium D1. D2 without significant disease. Circumflex -large caliber, 20% ostial, mid segment luminal irregularities, large OM 2 without significant disease. Distal AV groove circumflex without disease. RCA -dominant, medium caliber, mildly calcified, 20 to 30% mid segment disease. Distal vessel, RPDA, RPAV without significant disease. LVEDP -9 IFR Left main cannulated with a 5 Fr EBU 3.5 guide Omniwire FFR wire navigated across mid LAD stenosis and placed in latemid segment IFR 0.85, 0.78 Decision to proceed with PCI -- PCI -- Antithrombotic therapy: Heparin, clopidogrel Procedure: Pre-procedure flow GIGI 3 BMW wire passed across lesion into distal vessel Mid LAD lesion predilated with 2.5 compliant balloon Dilated lesion stented with 3.0 x 15 mm [place] drug-eluting stent Stent post-dilated with 3.5 noncompliant balloon IC vasodilators administered for spasm Post procedure GIGI 3 flow, stent well expanded with minimal residual stenosis and no apparent cardiac complications. Arterial Closure: TR band Summary: 1. Single vessel coronary artery disease -60-70% earlymid LAD (IFR 0.82). 2. Normal intracardiac filling pressure 3. Successful PCI of earlymid LAD with single drug-eluting stent (3.0 x 15 mm [place]; postdilated with 3.5 NC). Recommendations: To PCU for continued monitoring Loaded with clopidogrel 600 mg in Manager Statistical Continue dual-antiplatelet therapy for at least 6 months Continue statin, and GDMT for cardiomyopathy Consult cardiac Rehab Hemodynamics Rest Ao:: 139/83/100 Final Ao: 127/53/82 LV: 140/9 Recommendations Recommendations: PCI without planned CABG Specimens Specimens: None Radiation Exposure (mGy) 422 Contrast (mls) 140 Anesthesia Moderate [id number] Procedural Complication(s) None Disposition PCU I attest to the content of the Intraoperative Record and any orders documented therein. Any exceptions are noted below. [facility] Card Cath Procedure Codes Cardiac Catheterization Procedure 1: Cardiovascular Cath Procedures: 06456 Coronaries and LHC (+/-LV) Procedure 2: Cardiovascular Cath Procedures: 48267 (Doppler) Pressure Wire Moderate Sedation Procedure 1: Sedation/Anesthesia: 96616 Mod Sedation by the same physician;Init15 Min Child Age 5 & Up Procedure 2: Sedation/Anesthesia: 74701 Mod Sedation by the same physician; Ea [id number] Minutes Stenting Procedure 1: Cardiovascular Stent Procedures: 54489 Perc transcatheter placement of intracoronary stent(s), with ang PG Care Time/CCT Total # of Minutes Spent Total Time Spent with Patient: Total time spent is greater than 50% in coordination of care (as documented) at patient's floor/unit and/or counseling patient:
[2023-10-26] MEDS: SODIUM CHLORIDE 0.9% 1,000 ML IV SCH (18:38)
[2023-10-27 07:30] LABS: Hematocrit (blood only) 35.4 % (37.0-47.0); Hemoglobin 11.3 g/dl (12.0-16.0); Mean Corpuscular Hemoglobin 30.2 pg (25.0-34.0); Mean Corpuscular Hgb Conc 31.9 g/dL (32.0-36.0); Mean Corpuscular Volume 94.7 fL (80.0-100.0); Mean Platelet Volume 10.2 fL (9.4-12.4); Platelet Count 258 K/uL (130-400); RDW Coefficient of Variation 13.2 % (11.5-14.5); RDW Standard Deviation 45.8 fL (36.4-46.3); Red Blood Count 3.74 M/uL (4.20-5.40); White Blood Count 8.33 K/ul (4.8-10.8)
[2023-10-27 07:45] LABS: BUN Creatinine Ratio 23.3 (10-20); Calcium 8.2 mg/dl (8.6-10.3); Creatinine Clr Calc Pharmacy 41.6 ml/min; Est GFR (Non-African American) 59.5 ml/min; Magnesium 1.9 mg/dl (1.7-2.4); Phosphorus 4.5 mg/dl (2.5-4.9)
[2023-10-27] MEDS: CLOPIDOGREL BISULFATE 75 MG TAB PO SCH (09:04)
--- NOTE | 2023-10-27 10:55 | Electrocardiogram Report ---
Test Reason : Blood Pressure : / mmHG Vent. Rate : 068 BPM Atrial Rate : 056 BPM P-R Int : 000 ms QRS Dur : 070 ms QT Int : 488 ms P-R-T Axes : 000 025 124 degrees QTc Int : 518 ms Poor data quality, interpretation may be adversely affected Undetermined rhythm Abnormal ECG When compared with ECG of 25-OCT-2023 21:38, No significant change was found Confirmed by Leno Becker ([id number]) on 10/27/2023 10:55:17 AM Referred By: Heladio Elise Confirmed By:Leno Becker
--- NOTE | 2023-10-27 11:19 | Electrocardiogram Report ---
Test Reason : Blood Pressure : / mmHG Vent. Rate : 068 BPM Atrial Rate : 068 BPM P-R Int : 174 ms QRS Dur : 082 ms QT Int : 512 ms P-R-T Axes : 014 014 117 degrees QTc Int : 544 ms Sinus rhythm with Premature atrial complexes Marked T wave abnormality consider anterolateral ischemia Prolonged QT Abnormal ECG When compared with ECG of 26-OCT-2023 14:14, (unconfirmed) Inverted T waves have replaced nonspecific T wave abnormality in Anterior leads Confirmed by Leno Becker ([id number]) on 10/27/2023 11:19:32 AM Referred By: Heladio Elise Confirmed By:Leno Becker
--- NOTE | 2023-10-27 15:53 | Hospitalist Progress Note ---
Date of Service October 27, 2023 Assessment & Plan (1) Acute on chronic combined systolic and diastolic heart failure: (2) Tachy-bob syndrome: (3) Atrial tachycardia, paroxysmal: (4) Ureteral stent present: (5) Bladder mass: (6) Diabetes mellitus type 2, uncomplicated: (7) Coronary artery disease due to type 2 diabetes mellitus: Plan Patient 82-year-old female with acute heart failure due to sick sinus syndrome and now known coronary disease. Status postcardiac cath and stent in LAD. With reperfusion rates seem to be stable. Continue current metoprolol dose Plavix added for stent, continue Eliquis started per cardiology for observed paroxysmal atrial tachycardia With heart rates better controlled, patient may not need diuretic, weight significantly decreased from admission. Continue to monitor intake and output and weights. Consider diuretic if weight is increasing or patient signing signs of edema or dyspnea. Will need to closely monitor for hematuria with the initiation of Plavix and Eliquis patient has known bladder mass and stent. Will need to coordinate with urology how to address this when she has planned intervention later on this month. Unsure whether we will be able to proceed while patient on Plavix. Difficult to stop Plavix with need of if fresh stent. Continue therapies, reviewed therapy note Phone conversation with patient's daughter Ann-Marie, they anticipate taking patient home with home health care. Admission and Anticipated Discharge Date Admission Date: October 23, 2023 Subjective Patient did well postcardiac cath. No acute events overnight. No chest pain or shortness of breath Physical Exam Physical Exam: Constitutional: Alert, sitting in chair HEENT: Mucous membranes moist. Lungs: Decreased breath sounds at bases CV: S1-S2, regular Abdomen: Soft, nontender, nondistended Extremities: No significant edema, cardiac cath site in right wrist no tenderness, no redness noted, no swelling Neuro: No focal deficits, generalized weakness Psych: Cooperative, normal mood Results & Data Results & Data Vital Signs (Past 12 Hours) Vital Signs Temp Pulse Pulse Resp BP Pulse Ox O2 Del Method 10/27/23 14:56 37.0 C 66 18 119/56 L 93 Room Air 10/27/23 13:02 66 10/27/23 10:29 36.6 C 77 18 108/61 98 Nasal Cannula 10/27/23 07:02 36.7 C 62 18 117/61 96 Room Air 10/27/23 05:27 63 O2 Flow Rate 10/27/23 14:56 10/27/23 13:02 10/27/23 10:29 2 10/27/23 07:02 10/27/23 05:27 Diagnostic Findings Reviewed imaging, laboratory and diagnostic studies. Pertinent findings as below. Weight decreased approximately 12 kg from admission Hemoglobin 11.3 Electrolytes stable Reviewed cardiac microbiological laboratory technician report
--- NOTE | 2023-10-27 17:40 | Cardiology Progress Note ---
Date of Service October 27, 2023 Assessment & Plan (1) Acute on chronic combined systolic and diastolic heart failure: (2) Status post insertion of drug-eluting stent into left anterior descending (LAD) artery: (3) Hypoxia: (4) Atrial tachycardia, paroxysmal: (5) Paroxysmal atrial fibrillation: Plan Medically complex 82-year-old female with recent hospitalization 10/13/23 with Pseudomonas aeruginosa bacteriemia due to complicated UTI with sepsis, cardiovascular findings consistent with possible Takotsubo versus coronary heart disease, EF recovered prior to discharge, now admitted for acute on chronic combined systolic and diastolic CHF. EKG on arrival revealing possible atrial tach versus an atypical atrial flutter. Subsequent EKG tracings suggestive of paroxysmal atrial fibrillation. Telemetry at present reveals sinus rhythm with occasional PACs. EKG performed today 1 day post PCI reveals sinus rhythm at 68 bpm with deep T wave inversion in leads V2 V3 consistent with evolution of LAD stenosis that was treated with drug-eluting stent on 10/26/2023. Patient found to have 60-70 percent stenosis of the early mid segment of the LAD after the takeoff of the first diagonal branch. iFR measurement of 0.85, 0.70, consistent hemodynamically significant stenosis of patient underwent PCI placement of a 3 x 15 mm Wesley drug-eluting stent with excellent angiographic result on 10/27/23. - euvolemic on exam - possible tachy-bob syndrome, with bradycardia on higher doses of metoprolol, improved on current dose, metoprolol succinate 25 mg twice daily. - Resume furosemide, 40 mg by mouth daily -Continue losartan 12.5 mg daily and rosuvastatin 10 mg daily. -Patient seen by physical therapy today. She has a history of peripheral neuropathy, walks with a walker at baseline, and she was noted to have difficulty on was classified as having significant risk of falls. I discussed options of anticoagulation with Eliquis plus clopidogrel versus aspirin plus clopidogrel with patient's daughter. Through process of shared decision making, we will feel to be prudent to proceed with dual antiplatelet therapy rather than anticoagulation in this case. Hopefully with having had revascularization, rhythm issues will improve.At present, the prophylactic benefit of Eliquis from a stroke prophylaxis standpoint send paroxysmal atrial fibrillation is outweighed by her bleeding risk/risk of falling. -Case discussed with patient's daughter, Ann-Marie by phone. Admission and Anticipated Discharge Date Admission Date: October 23, 2023 Physical Exam Constitutional: WD/WN, vitals as above Respiratory: normal respiratory effort, lungs clear to auscultation Cardiovascular: RRR, no murmur, no edema Gastrointestinal (Abdomen): normal bowel sounds, soft, nontender, no hepatosplenomegaly Neurologic: PERRL, EOMI, accommodation nl, no face palsy, no dysarthria Results & Data Vital Signs (Past 12 Hours) Vital Signs Temp Pulse Pulse Resp BP Pulse Ox O2 Del Method 10/27/23 14:56 37.0 C 66 18 119/56 L 93 Room Air 10/27/23 13:02 66 10/27/23 10:29 36.6 C 77 18 108/61 98 Nasal Cannula 10/27/23 07:02 36.7 C 62 18 117/61 96 Room Air O2 Flow Rate 10/27/23 14:56 10/27/23 13:02 10/27/23 10:29 2 10/27/23 07:02
[2023-10-27] MEDS ORDERED: APIXABAN 5 MG TABLET PO SCH (21:00)
[2023-10-28 07:03] LABS: Hematocrit (blood only) 34.6 % (37.0-47.0); Hemoglobin 11.1 g/dl (12.0-16.0); Mean Corpuscular Hemoglobin 30.2 pg (25.0-34.0); Mean Corpuscular Hgb Conc 32.1 g/dL (32.0-36.0); Mean Corpuscular Volume 94.3 fL (80.0-100.0); Mean Platelet Volume 10.2 fL (9.4-12.4); Platelet Count 233 K/uL (130-400); RDW Coefficient of Variation 13.3 % (11.5-14.5); RDW Standard Deviation 45.6 fL (36.4-46.3); Red Blood Count 3.67 M/uL (4.20-5.40); White Blood Count 8.94 K/ul (4.8-10.8)
[2023-10-28 07:32] LABS: BUN Creatinine Ratio 23.6 (10-20); Calcium 8.3 mg/dl (8.6-10.3); Creatinine Clr Calc Pharmacy 42.1 ml/min; Est GFR (Non-African American) 60.4 ml/min; Potassium 4.1 mmol/L (3.5-5.1)
[2023-10-28] MEDS: ASPIRIN 81 MG ECTAB PO SCH (08:45)
[2023-10-28] MEDS: FUROSEMIDE 40 MG TAB PO SCH (08:45)
--- NOTE | 2023-10-28 09:06 | Cardiology Progress Note ---
Date of Service October 28, 2023 Assessment & Plan (1) Acute on chronic combined systolic and diastolic heart failure: (2) Status post insertion of drug-eluting stent into left anterior descending (LAD) artery: (3) Hypoxia: (4) Atrial tachycardia, paroxysmal: (5) Paroxysmal atrial fibrillation: Plan Medically complex 82-year-old female with recent hospitalization 10/13/23 with Pseudomonas aeruginosa bacteriemia due to complicated UTI with sepsis, cardiovascular findings consistent with possible Takotsubo versus coronary heart disease, EF recovered prior to discharge, now admitted for acute on chronic combined systolic and diastolic CHF. EKG on arrival revealing possible atrial tach versus an atypical atrial flutter. Subsequent EKG tracings suggestive of paroxysmal atrial fibrillation. Telemetry at present reveals sinus rhythm with occasional PACs. EKG performed today 1 day post PCI reveals sinus rhythm at 68 bpm with deep T wave inversion in leads V2 V3 consistent with evolution of LAD stenosis that was treated with drug-eluting stent on 10/26/2023. Patient found to have 60-70 % stenosis of the early mid segment of the LAD after the takeoff of the first diagonal branch. iFR measurement of 0.85, 0.78, consistent hemodynamically significant stenosis of patient underwent PCI placement of a 3 x 15 mm [place] drug-eluting stent with excellent angiographic result on 10/27/23. - possible tachy-bob syndrome, with bradycardia on higher doses of metoprolol, improved on current dose, metoprolol succinate 25 mg twice daily. - Resume furosemide, 40 mg by mouth daily -Continue losartan 12.5 mg daily and rosuvastatin 10 mg daily. -Repeat CXR today, 10/27. -Patient seen by physical therapy today. She has a history of peripheral neuropathy, walks with a walker at baseline, and she was noted to have difficulty on was classified as having significant risk of falls. I discussed options of anticoagulation with Eliquis plus clopidogrel versus aspirin plus clopidogrel with patient's daughter. Through process of shared decision making, we feel it to be prudent to proceed with dual antiplatelet therapy rather than anticoagulation in this case. Hopefully with having had revascularization, rhythm issues will improve. At present, the prophylactic benefit of Eliquis from a stroke prophylaxis standpoint send paroxysmal atrial fibrillation is outweighed by her bleeding risk/risk of falling. Pt stable for discharge / rehab from a cardiac perspective. Admission and Anticipated Discharge Date Admission Date: October 23, 2023 Subjective Ms Rivera is seen in follow up of her chief complain of shortness of breath. Feels well. Denies chest pain or shortness of breath. Telemetry reveals SR with PACs , rate 60-70s in last 24 hours. Physical Exam Constitutional: WD/WN, vitals as above Respiratory: no respiratory distress and no labored breathing Auscultation: + crackles (mild crackles at bilateral bases ); no wheezes Cardiovascular: RRR, no murmur, no edema Gastrointestinal (Abdomen): normal bowel sounds, soft, nontender, no hepatosplenomegaly Neurologic: PERRL, EOMI, accommodation nl, no face palsy, no dysarthria Results & Data Vital Signs (Past 12 Hours) Vital Signs Temp Pulse Pulse Resp BP BP Pulse Ox 10/28/23 08:00 36.6 C 69 18 118/61 94 10/28/23 03:04 36.5 C 71 16 150/66 H 91 10/27/23 23:21 37.6 C H 78 18 121/59 L 93 10/27/23 23:06 76 O2 Del Method 10/28/23 08:00 Room Air 10/28/23 03:04 Room Air 10/27/23 23:21 Room Air 10/27/23 23:06 Laboratory Results CBC 10/28/23 Range/Units 06:28 WBC 8.94 (4.8-10.8) K/ul RBC 3.67 L (4.20-5.40) M/uL Hgb 11.1 L (12.0-16.0) g/dl Hct 34.6 L (37.0-47.0) % Plt Count 233 (130-400) K/uL Comprehensive Metabolic Panel 10/28/23 Range/Units 06:28 Sodium 139 (136-145) mmol/L Potassium 4.1 (3.5-5.1) mmol/L Chloride 101 (98-107) mmol/L Carbon Dioxide 29 (21-32) mmol/L BUN 21 (6-23) mg/dl Creatinine 0.89 (0.6-1.2) mg/dl Glucose 120 H (70-99(Fasting)) mg/dl Calcium 8.3 L (8.6-10.3) mg/dl Intake and Output 10/27/23 10/28/23 10/28/23 22:59 06:59 14:59 Intake Total 250 / 980 50 / 980 Output Total 200 / 300 100 / 300 Balance - Intake: Oral 250 / 980 50 / 980 Output: Urine Amount (Catheter) 200 / 300 100 / 300 External 200 / 300 100 / 300 Other: # Unmeasured Voids 1 Weight 63.7 kg Weight Measurement Method Built in [facility]
--- NOTE | 2023-10-28 10:09 | XRay Report ---
TWO VIEW CHEST CLINICAL HISTORY: Follow-up congestive heart failure. FINDINGS: AP and lateral chest radiographs are compared to chest x-ray and chest CT dated 10/23/2023. The heart is enlarged noting atherosclerotic calcification of the thoracic area. Pulmonary vascular c ongestion has improved from previous. There are low lung volumes with bibasilar atelectasis. No airsp amrik consolidation typical for pneumonia or pleural effusion is identified. There is no pneumothorax. The skeletal structures are osteopenic. The bony thorax appears intact. Degenerative change is noted in the shoulders and spine. IMPRESSION: 1. Cardiomegaly. Pulmonary vascular congestion is improved from previous. 2. Low lung volumes with no airspace consolidation or pleural effusion identified. ACT 112: Negative or not required by law. Electronically signed by: Usama Jang M.D. 10/28/2023 10:08 AM
--- NOTE | 2023-10-28 13:19 | Hospitalist Progress Note ---
Date of Service October 28, 2023 Assessment & Plan (1) Acute on chronic combined systolic and diastolic heart failure: Plan: presented with acute shortness of breath secondary to acute on chronic combined systolic and diastolic heart failure complicated by paroxysmal atrial tachycardia With heart rates better controlled, patient may not need diuretic, weight significantly decreased from admission. Continue to monitor intake and output and weights. appreciate cardiology input and recommendation clinically much better and denies any symptoms at rest she has been ambulating in the room without any difficulties oral diuretics has been restarted (2) Tachy-bob syndrome: Plan: Patient 82-year-old female with acute heart failure due to sick sinus syndrome and now known coronary disease. Status postcardiac cath and stent in LAD. With reperfusion rates seem to be stable. Continue current metoprolol dose Plavix added for stent, heart rate remains controlled we will continue the current medications (3) Atrial tachycardia, paroxysmal: Plan: not for any systemic anticoagulation continue with the dual antiplatelet therapy not for any systemic anticoagulation (4) Ureteral stent present: Plan: Will need to closely monitor for hematuria with the initiation of Plavix and aspirin patient has known bladder mass and stent. Will need to coordinate with urology how to address this when she has planned intervention later on this month. Difficult to stop Plavix with need of if fresh stent. (5) Bladder mass: Plan: as above (6) Diabetes mellitus type 2, uncomplicated: (7) Coronary artery disease due to type 2 diabetes mellitus: Plan Continue therapies, reviewed therapy note Phone conversation with patient's daughter Ann-Marie, they anticipate taking patient home with home health care. she refused to go to rehab sample case porter is working on home health prior to discharge Admission and Anticipated Discharge Date Admission Date: October 23, 2023 Subjective 10/28/2023 The patient was seen and examined in telemetry unit She has been stable in a chair without any acute discomfort or distress in the room without any shortness of breath and/or chest pain/palpitation she does not want to go to rehab Review of Systems Review of Systems: all systems reviewed and are unremarkable except as noted below Physical Exam Constitutional: + ill appearing and average body habitus Eyes: PERRL, conjunctivae normal, anicteric sclerae ENMT: external ear and nose normal, oropharynx normal Neck: trachea midline, no thyromegaly Respiratory: no respiratory distress Auscultation: + diminished lung sounds and + crackles ( bibasilar crackles) Cardiovascular: Rate/Rhythm: regular rate and regular rhythm; not tachycardic Heart Sounds: normal S1 and normal S2; no murmur Extremities: + edema ( trace edema bilaterally) Gastrointestinal (Abdomen): Inspection/Auscultation: normal bowel sounds; abdomen not distended Percussion/Palpation: abdomen soft; abdomen nontender Musculoskeletal: no acute arthritis involving any of the joints Neurologic: normal touch/pain/proprioception and moves all extremities; no focal motor deficits Psychiatric: A+Ox3, euthymic affect Lymphatic: no cervical or axillary lymphadenopathy Results & Data Results & Data Vital Signs (Past 12 Hours) Vital Signs Temp Pulse Pulse Resp BP BP Pulse Ox 10/28/23 11:41 36.7 C 77 20 128/69 96 10/28/23 08:00 36.6 C 69 18 118/61 94 10/28/23 05:40 67 10/28/23 03:04 36.5 C 71 16 150/66 H 91 O2 Del Method 10/28/23 11:41 Room Air 10/28/23 08:00 Room Air 10/28/23 05:40 10/28/23 03:04 Room Air Laboratory Results Short CBC 10/28/23 Range/Units 06:28 WBC 8.94 (4.8-10.8) K/ul Hgb 11.1 L (12.0-16.0) g/dl Hct 34.6 L (37.0-47.0) % Plt Count 233 (130-400) K/uL BMP 10/28/23 06:28 Sodium 139 Potassium 4.1 Chloride 101 Carbon Dioxide 29 BUN 21 Creatinine 0.89 Glucose 120 H Calcium 8.3 L Medications Administered Current Inpatient Medications Acetaminophen (Acetaminophen 325 Mg Tab) 650 mg PO Q4H PRN PRN Reason: Pain or Fever Stop: 11/22/23 08:36 Last Admin: 10/24/23 11:09 Dose: 650 mg Aspirin (Aspirin 81 Mg Ectab) 81 mg PO [facility] Stop: 11/27/23 08:59 Last Admin: 10/28/23 08:45 Dose: 81 mg Calcitriol (Calcitriol 0.25 Mcg Capsule) 1 mcg PO [facility] Stop: 11/22/23 10:59 Last Admin: 10/28/23 08:46 Dose: 1 mcg Clopidogrel Bisulfate (Clopidogrel Bisulfate 75 Mg Tab) 75 mg PO QAM [facility] Stop: 11/26/23 08:59 Last Admin: 10/28/23 12:13 Dose: 75 mg Dextrose (Dextrose 50% 50 Ml Syringe) 25 - 50 ml IV UD PRN; Protocol PRN Reason: Hypoglycemia Protocol Stop: 11/22/23 08:46 Dorzolamide/Timolol (Dorzolamide/Timolol 22.3/6.8mg/Ml 10 Ml Btl) 1 drops OPB HS [facility] Stop: 11/22/23 20:59 Last Admin: 10/27/23 20:40 Dose: 1 drops Duloxetine HCl (Duloxetine Hcl 60 Mg Cap) 60 mg PO DAILY [facility] Stop: 11/22/23 10:59 Last Admin: 10/28/23 08:46 Dose: 60 mg Furosemide (Furosemide 40 Mg Tab) 40 mg PO QAM [facility] Stop: 11/27/23 08:59 Last Admin: 10/28/23 08:45 Dose: 40 mg Glucagon (Glucagon For Inj 1 Mg Vial) 1 mg SQ UD PRN; Protocol PRN Reason: Hypoglycemia Protocol Stop: 11/22/23 08:46 Glucose (Glucose 40% Gel 15 Gm Tube) 15 - 30 gm PO UD PRN; Protocol PRN Reason: Hypoglycemia Protocol Stop: 11/22/23 08:46 Glucose (Glucose 10 Tab/Tube) 4 - 8 tab PO UD PRN; Protocol PRN Reason: Hypoglycemia Treatment Stop: 11/22/23 08:46 Insulin Aspart (Insulin Aspart Per Unit Charge) 0 units SC ACHS [facility] Stop: 11/22/23 11:29 Last Admin: 10/28/23 11:55 Dose: 2 units Latanoprost (Latanoprost 0.005% Op Soln 2.5 Ml Btl) 1 drops OPB AMHS [facility] Stop: 11/22/23 10:59 Last Admin: 10/28/23 08:48 Dose: 1 drops Losartan Potassium (Losartan Potassium 25 Mg Tab) [facility] Stop[facility] 11/22/23 10:59 Last Admin: 10/24/23 08:58 Dose: Not Given Magnesium Oxide (Magnesium Oxide 400 Mg Tab) [facility] Stop: 11/22/23 12:29 Last Admin: 10/28/23 08:46 Dose: 400 mg Metoprolol Succinate (Metoprolol Succ 25mg Ext Rel Tab) 25 mg PO BID [facility] Stop: 11/23/23 20:59 Last Admin: 10/28/23 08:45 Dose: 25 mg Miscellaneous (Latanoprostene~Order Awaiting Action) 1 each N/A QS [facility] Stop: 11/22/23 15:59 Last Admin: 10/28/23 08:48 Dose: Not Given Miscellaneous (Carbohydrates For Hypoglycemia ) 15 - 30 gm PO UD PRN PRN Reason: Hypoglycemia Protocol Stop: 11/22/23 08:46 Multivitamins (Multivitamin Tab) 1 tab PO QAM [facility] Stop: 11/22/23 10:59 Last Admin: 10/28/23 08:46 Dose: 1 tab Ondansetron HCl (Ondansetron Inj 2 Mg/Ml 2 Ml Vial) 4 mg IV Q6H PRN PRN Reason: Nausea Stop: 11/22/23 08:36 Pantoprazole Sodium (Pantoprazole 40 Mg Tab) 40 mg PO BID [facility] Stop: 11/22/23 10:59 Last Admin: 10/28/23 08:46 Dose: 40 mg Potassium Chloride (Potassium Chloride Crtab 20 Meq Tabcr) 40 meq PO QAM [facility] Stop: 11/23/23 08:59 Last Admin: 10/28/23 08:52 Dose: 40 meq Rosuvastatin Calcium (Rosuvastatin Calcium 10 Mg Tab) 10 mg PO HS [facility] Stop: 11/22/23 20:59 Last Admin: 10/27/23 20:40 Dose: 10 mg
--- NOTE | 2023-10-29 12:48 | Hospitalist Progress Note ---
Date of Service October 29, 2023 Assessment & Plan (1) Acute on chronic combined systolic and diastolic heart failure: Plan: presented with acute shortness of breath secondary to acute on chronic combined systolic and diastolic heart failure complicated by paroxysmal atrial tachycardia With heart rates better controlled, patient may not need diuretic, weight significantly decreased from admission. Continue to monitor intake and output and weights. appreciate cardiology input and recommendation clinically much better and denies any symptoms at rest she has been ambulating in the room without any difficulties oral diuretics has been restarted remains medically stable to be discharged strongly advised to take extreme precautions to avoid falls she again refused to go to rehab (2) Tachy-bob syndrome: Plan: Patient 82-year-old female with acute heart failure due to sick sinus syndrome and now known coronary disease. Status postcardiac cath and stent in LAD. With reperfusion rates seem to be stable. Continue current metoprolol dose Plavix added for stent, heart rate remains controlled we will continue the current medications (3) Atrial tachycardia, paroxysmal: Plan: not for any systemic anticoagulation continue with the dual antiplatelet therapy not for any systemic anticoagulation heart rate is controlled (4) Ureteral stent present: Plan: Will need to closely monitor for hematuria with the initiation of Plavix and aspirin patient has known bladder mass and stent. Will need to coordinate with urology how to address this when she has planned intervention later on this month. Difficult to stop Plavix with need of if fresh stent. (5) Bladder mass: Plan: as above (6) Diabetes mellitus type 2, uncomplicated: (7) Coronary artery disease due to type 2 diabetes mellitus: Plan Continue therapies, reviewed therapy note Phone conversation with patient's daughter Ann-Marie, they anticipate taking patient home with home health care. she refused to go to rehab field case manager is working on home health prior to discharge refused to go to rehab and will be discharged home this afternoon with home health nurse Admission and Anticipated Discharge Date Admission Date: October 23, 2023 Subjective 10/28/2023 The patient was seen and examined in telemetry unit She has been stable in a chair without any acute discomfort or distress in the room without any shortness of breath and/or chest pain/palpitation she does not want to go to rehab 10/29/2023 The patient was seen and examined in telemetry unit She remains weak and lethargic but denies any other symptoms She has been ambulating in the room without any difficulties She is adamant that she wants to go home with home health nurse assistance Review of Systems Review of Systems: all systems reviewed and are unremarkable except as noted below Physical Exam Constitutional: + ill appearing and average body habitus Eyes: PERRL, conjunctivae normal, anicteric sclerae ENMT: external ear and nose normal, oropharynx normal Neck: trachea midline, no thyromegaly Respiratory: no respiratory distress Auscultation: + diminished lung sounds and + crackles ( bibasilar crackles) Cardiovascular: Rate/Rhythm: regular rate and regular rhythm; not tachycardic Heart Sounds: normal S1 and normal S2; no murmur Extremities: + edema ( trace edema bilaterally) Gastrointestinal (Abdomen): Inspection/Auscultation: normal bowel sounds; abdomen not distended Percussion/Palpation: abdomen soft; abdomen nontender Neurologic: normal touch/pain/proprioception and moves all extremities; no focal motor deficits Psychiatric: A+Ox3, euthymic affect Lymphatic: no cervical or axillary lymphadenopathy Results & Data Results & Data Vital Signs (Past 12 Hours) Vital Signs Temp Pulse Resp BP BP Pulse Ox O2 Del Method 10/29/23 10:15 36.9 C 72 18 111/65 90 Room Air 10/29/23 07:15 36.8 C 64 19 150/75 H 91 Room Air 10/29/23 03:51 37.0 C 88 16 137/60 91 Room Air Medications Administered Current Inpatient Medications Acetaminophen (Acetaminophen 325 Mg Tab) 650 mg PO Q4H PRN PRN Reason: Pain or Fever Stop: 11/22/23 08:36 Last Admin: 10/24/23 11:09 Dose: 650 mg Aspirin (Aspirin 81 Mg Ectab) 81 mg PO [facility] Stop: 11/27/23 08:59 Last Admin: 10/29/23 08:01 Dose: 81 mg Calcitriol (Calcitriol 0.25 Mcg Capsule) 1 mcg PO [facility] Stop: 11/22/23 10:59 Last Admin: 10/29/23 08:01 Dose: 1 mcg Clopidogrel Bisulfate (Clopidogrel Bisulfate 75 Mg Tab) 75 mg PO [facility] Stop: 11/26/23 08:59 Last Admin: 10/29/23 08:01 Dose: 75 mg Dextrose (Dextrose 50% 50 Ml Syringe) 25 - 50 ml IV UD PRN; Protocol PRN Reason: Hypoglycemia Protocol Stop: 11/22/23 08:46 Dorzolamide/Timolol (Dorzolamide/Timolol 22.3/6.8mg/Ml 10 Ml Btl) 1 drops OPB HS [facility] Stop: 11/22/23 20:59 Last Admin: 10/28/23 20:36 Dose: 1 drops Duloxetine HCl (Duloxetine Hcl 60 Mg Cap) 60 mg PO DAILY [facility] Stop: 11/22/23 10:59 Last Admin: 10/29/23 08:01 Dose: 60 mg Furosemide (Furosemide 40 Mg Tab) 40 mg PO QAM [facility] Stop: 11/27/23 08:59 Last Admin: 10/29/23 08:01 Dose: 40 mg Glucagon (Glucagon For Inj 1 Mg Vial) 1 mg SQ UD PRN; Protocol PRN Reason: Hypoglycemia Protocol Stop: 11/22/23 08:46 Glucose (Glucose 40% Gel 15 Gm Tube) 15 - 30 gm PO UD PRN; Protocol PRN Reason: Hypoglycemia Protocol Stop: 11/22/23 08:46 Glucose (Glucose 10 Tab/Tube) 4 - 8 tab PO UD PRN; Protocol PRN Reason: Hypoglycemia Treatment Stop: 11/22/23 08:46 Insulin Aspart (Insulin Aspart Per Unit Charge) 0 units SC ACHS [facility] Stop: 11/22/23 11:29 Last Admin: 10/29/23 07:58 Dose: 3 units Latanoprost (Latanoprost 0.005% Op Soln 2.5 Ml Btl) 1 drops OPB AMHS [facility] Stop: 11/22/23 10:59 Last Admin: 10/29/23 08:02 Dose: 1 drops Losartan Potassium (Losartan Potassium 25 Mg Tab) 12.5 mg PO QAM [facility] Stop: 11/22/23 10:59 Last Admin: 10/24/23 08:58 Dose: Not Given Magnesium Oxide (Magnesium Oxide 400 Mg Tab) 400 mg PO QAM [facility] Stop: 11/22/23 12:29 Last Admin: 10/29/23 08:00 Dose: 400 mg Metoprolol Succinate (Metoprolol Succ 25mg Ext Rel Tab) 25 mg PO BID [facility] Stop: 11/23/23 20:59 Last Admin: 10/29/23 08:00 Dose: 25 mg Miscellaneous (Latanoprostene~Order Awaiting Action) 1 each N/A QS [facility] Stop: 11/22/23 15:59 Last Admin: 10/29/23 08:02 Dose: Not Given Miscellaneous (Carbohydrates For Hypoglycemia ) 15 - 30 gm PO UD PRN PRN Reason: Hypoglycemia Protocol Stop: 11/22/23 08:46 Multivitamins (Multivitamin Tab) 1 tab PO QAM [facility] Stop: 11/22/23 10:59 Last Admin: 10/29/23 08:00 Dose: 1 tab Ondansetron HCl (Ondansetron Inj 2 Mg/Ml 2 Ml Vial) 4 mg IV Q6H PRN PRN Reason: Nausea Stop: 11/22/23 08:36 Pantoprazole Sodium (Pantoprazole 40 Mg Tab) 40 mg PO BID [facility] Stop: 11/22/23 10:59 Last Admin: 10/29/23 08:00 Dose: 40 mg Potassium Chloride (Potassium Chloride Crtab 20 Meq Tabcr) 40 meq PO QAM [facility] Stop: 11/23/23 08:59 Last Admin: 10/29/23 08:03 Dose: 40 meq Rosuvastatin Calcium (Rosuvastatin Calcium 10 Mg Tab) 10 mg PO HS [facility] Stop: 11/22/23 20:59 Last Admin: 10/28/23 20:37 Dose: 10 mg
--- NOTE | 2023-10-29 14:11 | Cardiology Progress Note ---
Date of Service October 29, 2023 Assessment & Plan (1) Acute on chronic combined systolic and diastolic heart failure: (2) Status post insertion of drug-eluting stent into left anterior descending (LAD) artery: (3) Hypoxia: (4) Atrial tachycardia, paroxysmal: (5) Paroxysmal atrial fibrillation: Plan Medically complex 82-year-old female with recent hospitalization 10/13/23 with Pseudomonas aeruginosa bacteriemia due to complicated UTI with sepsis, cardiovascular findings consistent with possible Takotsubo versus coronary heart disease, EF recovered prior to discharge, now admitted for acute on chronic combined systolic and diastolic CHF. EKG on arrival revealing possible atrial tachycardia versus atypical atrial flutter. Subsequent EKG tracings suggestive of paroxysmal atrial fibrillation. Telemetry at present reveals sinus rhythm with occasional PACs. EKG performed today 1 day post PCI reveals sinus rhythm at 68 bpm with deep T wave inversion in leads V2 V3 consistent with evolution of LAD stenosis that was treated with drug-eluting stent on 10/26/2023. Patient found to have 60-70 % stenosis of the early mid segment of the LAD after the takeoff of the first diagonal branch. iFR measurement of 0.85, 0.78, consistent hemodynamically significant stenosis of patient underwent PCI placement of a 3 x 15 mm Wesley drug-eluting stent with excellent angiographic result on 10/27/23. Chest x-ray performed on 10/28/2023, radiology report reviewed, images reviewed independently, pulmonary edema noted on presentation improved. No pleural effusion. Decreased lung volumes likely due to poor inspiratory effort. - possible tachy-bob syndrome, with bradycardia on higher doses of metoprolol, improved on current dose, metoprolol succinate 25 mg twice daily. -furosemide, 40 mg by mouth daily - losartan 12.5 mg daily and rosuvastatin 10 mg daily. -Patient seen by physical therapy today. She has a history of peripheral neuropathy, walks with a walker at baseline, and she was noted to have difficulty on was classified as having significant risk of falls. I discussed options of anticoagulation with Eliquis plus clopidogrel versus aspirin plus clopidogrel with patient's daughter. Through a process of shared decision making, we feel it to be prudent to proceed with dual antiplatelet therapy rather than anticoagulation in this case. Hopefully with having had revascularization, rhythm issues will improve. At present, the prophylactic benefit of Eliquis from a stroke prophylaxis standpoint is outweighed by her bleeding risk/risk of falling. Pt stable for discharge / rehab from a cardiac perspective. Per review of case management notes, patient declines inpatient rehab, tentative plan is for home health. Admission and Anticipated Discharge Date Admission Date: October 23, 2023 Subjective Patient seen cardiology follow-up. She is sitting in the bedside chair. No acute complaints. Telemetry reveals sinus rhythm in the 80s to 90s. Without arrhythmia. Physical Exam Constitutional: WD/WN, vitals as above Respiratory: normal respiratory effort, lungs clear to auscultation no respiratory distress and no labored breathing Auscultation: + crackles (mild crackles at bilateral bases ); no wheezes Cardiovascular: RRR, no murmur, no edema Gastrointestinal (Abdomen): normal bowel sounds, soft, nontender, no hepat osplenomegaly Neurologic: PERRL, EOMI, accommodation nl, no face palsy, no dysarthria Results & Data Vital Signs (Past 12 Hours) Vital Signs Temp Pulse Resp BP BP Pulse Ox O2 Del Method 10/29/23 10:15 36.9 C 72 18 111/65 90 Room Air 10/29/23 07:15 36.8 C 64 19 150/75 H 91 Room Air 10/29/23 03:51 37.0 C 88 16 137/60 91 Room Air
--- NOTE | 2023-11-01 07:32 | Discharge Summary ---
Date of Service November 01, 2023 Admission HPI Per Admitting Provider Patient 82-year-old female who was just discharged from the hospital yesterday after being treated for UTI and bacteremia. During that time also was seen by cardiology. She is having some arrhythmia as. Also her initial ejection fraction was 30%. It improved to 50% within a couple days during her hospitalization. Her beta-sav was adjusted and seems as though her heart rates were controlled and there was no evidence of heart failure. She was discharged to home in the care of her family. She went to bed last night as she laid down she started to get short of breath. This progressed throughout the night. Called family who called EMS. She was noted be quite hypoxic in the field. She was placed on oxygen. She was brought to the emergency room. In the emergency room was placed on BiPAP. Evaluation in the emergency room was significant for decompensated heart failure. She was given diuretics and she already started to improve and diuresis here in the emergency room. Time my evaluation patient sleeping on BiPAP. Able to be aroused but not very interactive to the history. Daughter is at the bedside. History obtained from the daughter and through review of the medical record. There was no chest pain. Otherwise she had done well throughout the day after her discharge. No fevers or chills reported. Admission Exam Per Admitting Provider Physical Exam: Constitutional: Alert, ill in appearance, nontoxic on BiPAP mask HEENT: Mucous membranes moist. Sclera clear Neck: Soft, no adenopathy Lungs: Decreased breath sounds, coarse rhonchi, diffuse Rales CV: S1-S2, tachycardic Abdomen: Soft, nontender, nondistended Extremities: 1+ pretibial edema Musculoskeletal: No significant joint tenderness Neuro: No focal deficits, generalized weakness, drowsy Psych: Cooperative, normal mood Principal Diagnosis acute on chronic combined systolic and diastolic heart failure Discharge Exam Constitutional + ill appearing and average body habitus Eyes PERRL, conjunctivae normal, anicteric sclerae ENMT external ear and nose normal, oropharynx normal Neck trachea midline, no thyromegaly Respiratory no respiratory distress Auscultation: + diminished lung sounds and + crackles ( bibasilar crackles) Cardiovascular Rate/Rhythm: regular rate and regular rhythm; not tachycardic Heart Sounds: normal S1 and normal S2; no murmur Extremities: + edema ( trace edema bilaterally) Gastrointestinal (Abdomen) Inspection/Auscultation: normal bowel sounds; abdomen not distended Percussion/Palpation: abdomen soft; abdomen nontender Neurologic normal touch/pain/proprioception and moves all extremities; no focal motor deficits Psychiatric A+Ox3, euthymic affect Lymphatic no cervical or axillary lymphadenopathy Discharge Data Allergies Allergy/AdvReac Type Severity Reaction Status Date / Time No Known Allergies Allergy Verified 10/31/23 20:23 Consultations 10/23/23 07:32 ED Decision to Admit Stat 10/23/23 08:37 Consult Cardiology Routine 10/26/23 16:37 Consult Cardiac Rehabilitation Routine Procedures Performed Operation Date: 10/26/23 13:30 Actual Procedures p Cineradiography w/Routine Exam - Todd Carlson MD s Cath, Left with Cors and Vent - Todd Carlson MD s Drug Eluting Stent SGl Vessel - Todd Carlson MD Ordered Studies 10/23/23 15:52 CT angio chest PE protocol Routine 10/26/23 08:46 CL Cath Imgs for PACS use only Routine Hospital Course (1) Acute on chronic combined systolic and diastolic heart failure: presented with acute shortness of breath secondary to acute on chronic combined systolic and diastolic heart failure complicated by paroxysmal atrial tachycardia With heart rates better controlled, patient may not need diuretic, weight significantly decreased from admission. Continue to monitor intake and output and weights. 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 Status postcardiac cath and stent in LAD. With reperfusion rates seem to be stable. Continue current metoprolol dose Plavix added for stent, heart rate remains controlled we will continue the current medications (3) Atrial tachycardia, paroxysmal: not for any systemic anticoagulation continue with the dual antiplatelet therapy not for any systemic anticoagulation heart rate is controlled (4) Ureteral stent present: Will need to closely monitor for hematuria with the initiation of Plavix and aspirin patient has known bladder mass and stent. Will need to coordinate with urology how to address this when she has planned intervention later on this month. Difficult to stop Plavix with need of if fresh stent. (5) Bladder mass: as above (6) Diabetes mellitus type 2, uncomplicated: (7) Coronary artery disease due to type 2 diabetes mellitus: Plan Continue therapies, reviewed therapy note Phone conversation with patient's daughter Ann-Marie, they anticipate taking patient home with home health care. 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 prior to discharge refused to go to rehab and will be discharged home this afternoon with home health nurse Total Time Total Time Spent Total Time Spent (In Minutes): 35 minutes Discharge Plan Discharge Items Patient Disposition: Home - Home Health Services Reason For Visit: CHF Discharge Diagnosis: acute on chronic combined systolic and diastolic heart failure Condition on Discharge: Fair Activity: As commented below Activity Comment: please take extreme precaution to avoid falls Non-emergency contact: Primary Care Provider Call non-emergency contact if: you have any medication questions and your symptoms worsen Follow-up/Referrals: Toya Wu DO [Outside Practitioners] - (Date & Time 11/03/2023 2:00 PM Provider Toya Wu DO Department [facility] ) Diet: Heart Healthy and Low Sodium (2gm) Addtl Attending Provider Instructions: please take precautions to avoid falls please take your medications as advised please keep appointments with the healthcare providers you should get a follow-up appoint with the urologist Pending Studies at Discharge: No Stand-Alone Forms: My sifonr, Smoking Cessation Medications and DC Order Prescriptions: New furosemide 40 mg Tablet 40 mg PO QAM Qty: 30 0RF clopidogrel 75 mg Tablet 75 mg PO QAM Qty: 30 0RF Continued tamsulosin [Flomax] 0.4 mg capsule 0.4 mg PO DAILY Qty: 30 0RF latanoprost [Xalatan] 0.005 % drops 1 drp OPB AMHS dorzolamide-timolol [Cosopt] 22.3-6.8 mg/mL drops 1 drp OPB HS duloxetine [Cymbalta] 60 mg capsule,delayed release(DR/EC) 60 mg PO DAILY multivitamin Tablet 1 tab PO QAM omeprazole 20 mg Tablet,Delayed Release (Dr/Ec) 20 mg PO BID aspirin [Ed Low Dose Aspirin] 81 mg tablet,delayed release (DR/EC) 81 mg PO QAM calcitriol 0.5 mcg Capsule 1 mcg PO QAM rosuvastatin 10 mg Tablet 10 mg PO HS phenazopyridine 100 mg tablet 100 mg PO TID Vyzulta 0.024 % Drops 1 drp OPB HS losartan 25 mg Tablet 12.5 mg PO QAM 30 Days Qty: 15 0RF metoprolol succinate 25 mg Tablet Extended Release 24 Hr 25 mg PO BID 30 Days Qty: 60 0RF Discharge Orders: Discharge Order (Routine); Ordered 10/29/23 Ordered By: Jayson Shah Discharge Order- CHF (Routine); Ordered 10/29/23 Ordered By: Jayson Shah Admission Data Admit Date/Time: 10/23/23 08:45 Attending Provider: Jayson Shah Admit Provider: Heladio Elise Primary Care Provider: Hernan Fernández Other Providers: Heladio Elise; Jj Pacheco; [facility],Home Health Other Interventions: Discharge Summary Assessment (RN) Last Done: 10/29/23 15:01
== END 2023-10-29 15:02 | disposition home health service (06) | DRG 321 ==
LOC: ED 04:47 → SUATTDRO 08:45 → EDINP 08:45 → 2S 11:02

== ENCOUNTER 2023-10-31 18:59 | Inpatient (IN) ==
--- OUTSIDE RECORDS SUMMARY | 2023-10-31 19:02 | External Medical Summary | Summary of Care ---
Author Name Unknown Organization [facility] Address [address] [place] [address] Phone [phone] Care Team Providers Care Electric Organ Assembler And Checker Name Role Phone Toya Wu DO Primary Care Provider [phone] Encounter Details Date Type Department Care Team (Late st Contact Info) Description 10/23/2023 Result Scan Unspecified Department <No scans attached> Allergies No known active allergiesdocumented as of this encounter (statuses as of 10/27/2023) Medications Medication Sig Dispensed Refills Start Date [...] as of this encounter (statuses as of 10/27/2023) Active Problems Problem Noted Date Diagnosed Date [...] as of this encounter (statuses as of 10/27/2023) Resolved Problems Problem Noted Date Diagnosed Date [...] as of this encounter (statuses as of 10/27/2023) Immunizations Name Administration Dates Next Due COVID-19 mRNA, LNP-s, No Pre serve, 2-Dose Series ([place]) 02/06/2021,06/30/2020,06/09/2020 Pneumococcal Conjugate Vacc, 13 Valent (Prevnar) [...] Description 11/02/2023 2:30 PM EDT Imaging Radiology, [facility] [address] [facility] [facility] [place] [address] 01/26/2024 1:30 PM EDT Office Visit Cardiology, [facility] [address] [place] [id number] Megan Villarreal CRNP [address] [place] [address] [place] [address] 03/08/2024 1:20 PM EST Office Visit Family [facility] [address] [place] [address] Toya Wu DO [address] [place] [address] Health Maintenance Due Date Last Done Comments [...] D LEVEL ONCE IN A LIFETIME-USE SMARTSET# [id number] Completed 02/25/2023, 08/07/2022, 02/19/2017, Additional history exists [...] Procedure Name Priority Date/Time Associated Diagnosis Comments ECHOCARDIOLOGY SCANNED RESULT 10/23/2023 documented in this encounter Results * ECHOCARDIOLOGY SCANNED RESULT (10/23/2023) 10/23/2023 No Physician Data Unknown ECHOCARDIOLOGY documented in this encounter Advance Directives * [...] Power of Attor brenna? No Care Teams Electric Organ Assembler And Checker Relationship Specialty Start Date End Date Toya Wu DO [address] [place] [address] PCP - General Family Medicine 02/25/23 documented as of this encounter
--- OUTSIDE RECORDS SUMMARY | 2023-10-31 19:02 | External Medical Summary | Summary of Care ---
Author Name Unknown Organization [facility] Address [address] [place] [address] Phone [phone] Care Team Providers Care Cocoa Bean Roaster Helper Name Role Phone Toya Wu DO Primary Care Provider [phone] Encounter Details Date Type Department Care Team (Late st Contact Info) Description 10/29/2023 Orders Only Cardiology, [facility] [address] [place] [id number] Randy Hayes DO [address] [place] [address] Allergies No known active allergiesdocumented as of this encounter (statuses as of 10/29/2023) Medications Medication Sig Dispensed Refills Start Date [...] as of this encounter (statuses as of 10/29/2023) Active Problems Problem Noted Date Diagnosed Date [...] as of this encounter (statuses as of 10/29/2023) Resolved Problems Problem Noted Date Diagnosed Date [...] as of this encounter (statuses as of 10/29/2023) Immunizations Name Administration Dates Next Due COVID-19 [...] Description 11/02/2023 2:30 PM EDT Imaging Radiology, [address] [place] [address] 01/26/2024 1:30 PM EDT Office Visit Cardiology, [facility] [address] [place] [address] Megan Villarreal CRNP [address] [place] [address] 03/08/2024 1:20 PM EST Office Visit Family Practice [facility] [address] [place] [address] Toya Wu, [address] [place] [address] Health Maintenance Due Date Last Done Comments [...] D LEVEL ONCE IN A LIFETIME-USE SMARTSET# [id number] Completed 02/25/2023, 08/07/2022, 02/19/2017, Additional history exists [...] Procedure Name Priority Date/Time Associated Diagnosis Comments XR CHEST 2 VIEWS Routine 10/28/2023 documented in this encounter Results * XR CHEST 2 VIEWS (10/28/2023) Anatomical Region Laterality Modality Chest Other 10/28/2023 Randy Hayes DO RADIOLOGY (RAD GENER AL) documented in this encounter Advance Directives * [...] Power of Attor brenna? No Care Teams Cocoa Bean Roaster Helper Relationship Specialty Start Date End Date Toya Wu DO [address] [place] [address] PCP - General Family Medicine 02/25/23 documented as of this encounter
--- OUTSIDE RECORDS SUMMARY | 2023-10-31 19:02 | External Medical Summary | Summary of Care ---
Author Name Unknown Organization [facility] Address [address] [place] [address] Phone [phone] Care Team Providers Care Floor Cashier Name Role Phone Toya Wu DO Primary Care Provider [phone] Encounter Details Date Type Department Care Team (Late st Contact Info) Description 10/26/2023 Population Health External Data Unspecified Department Allergies No known active allergiesdocumented as of this encounter (statuses as of 10/26/2023) Medications Medication Sig Dispensed Refills Start Date [...] as of this encounter (statuses as of 10/26/2023) Active Problems Problem Noted Date Diagnosed Date [...] as of this encounter (statuses as of 10/26/2023) Resolved Problems Problem Noted Date Diagnosed Date [...] as of this encounter (statuses as of 10/26/2023) Immunizations Name Administration Dates Next Due COVID-19 mRNA, LNP-s, No Pre serve, 2-Dose Series ([facility]) 02/06/2021,06/30/2020,06/09/2020 Pneumococcal Conjugate Vacc, 13 Valent (Prevnar) [...] Description 11/02/2023 2:30 PM EDT Imaging Radiology, [facility] [address] [place] [address] 01/26/2024 1:30 PM EDT Office Visit Cardiology, [facility] [address] [facility] [place] [address] Megan Villarreal CRNP [address] [place] [address] [place] [address] 03/08/2024 1:20 PM EST Office Visit Family [facility] [address] [place] [address] Toya Wu DO [address] [place] [address] Health Maintenance Due Date Last Done Comments [...] D LEVEL ONCE IN A LIFETIME-USE SMARTSET# [id number] Completed 02/25/2023, 08/07/2022, 02/19/2017, Additional history exists [...] Power of Attor brenna? No Care Teams Floor Cashier Relationship Specialty Start Date End Date Toya Wu DO [address] [place] [address] PCP - General Family Medicine 02/25/23 documented as of this encounter
[2023-10-31] MEDS: METOPROLOL TARTRATE 1 MG/ML VIAL IV STA (19:35)
[2023-10-31] MEDS: ACETAMINOPHEN 1,000 MG/100 ML VIAL IV STA (19:37)
--- NOTE | 2023-10-31 19:38 | Emergency Department Note ---
Impression & Plan Tachycardia, Confusion, Elevated troponin, Hypomagnesemia, Diffuse abdominal pain, Hypokalemia ED Provider Note NAME: SONNY REEVES AGE: 82 SEX: F : 1940 ARRIVES VIA: Walk-In INFORMANT: [Patient][family] ED PROVIDER(S): [Usama Wyman MD] CHIEF COMPLAINT: Abdominal pain, confusion HISTORY OF PRESENT ILLNESS: The patient is an 82-year-old female who was discharged from the hospital 2 days ago after having a coronary stent placed. The patient is on metoprolol. During her hospital stay, she had atrial tachycardia which later seemed to be atrial fibrillation. The patient was doing well yesterday after discharge. Today, at around 2:00 PM or so, 5 hours ago, she began complaining of abdominal pain and acting differently. She seemed confused. The patient denies any chest pain, she is not short of breath. She does admit to some abdominal pain but it is diffuse. She has not noticed any urinary difficulty, there has been no cough or congestion. No fever. The patient was in the hospital for sepsis before the coronary stent was placed. She has had a recent complicated medical course. She still has a left ureteral stent in place. PMHx/PSHx/Social Hx: See Below PHYSICAL EXAM: GENERAL: Patient is in no acute distress. HEENT: No acute trauma, normocephalic atraumatic, mucous membranes moist, no nasal congestion. NECK: No stridor, no adenopathy, no meningismus, trachea is midline. LUNGS: Crackles in both lower lung sykes, no wheezing or respiratory distress. HEART: Tachycardic and at times a bit irregular. There is no murmur. ABDOMEN: Soft, mildly diffusely tender, no peritonitis, no distention. EXTREMITIES: No cyanosis, full range of motion of all the joints without pain or difficulty. NEUROLOGIC: Awake and alert, no acute motor or sensory deficits, no focal weakness. SKIN: No jaundice, no diaphoresis. DIFFERENTIAL DIAGNOSIS: Dysrhythmia, ureteral obstruction, UTI, bacteremia or sepsis, diverticulitis, bowel ischemia, among others. EMERGENCY DEPARTMENT PROCEDURES: MEDICAL DECISION MAKING: There is no leukocytosis or concerning anemia. There is a normal platelet count. No concerning coagulopathy. Potassium and magnesium were both somewhat low. No renal failure. No concerning liver enzyme elevation. The patient appeared to be in a euthyroid state. ECG shows what appeared to be atrial tachycardia or atrial fibrillation. Repeat ECG showed a sinus rhythm. There were some T wave changes on the ECG consistent with her recent ECGs. Cardiac enzyme testing x 1 was slightly elevated. This elevation could be mismatch from her tachycardia versus acute injury. Chest x-ray showed a poor inspiration, no CHF or pneumonia. Brain CT showed no acute bleed or mass effect. Abdominal and pelvis CT did not show any acute surgical process. No diverticulitis. Her left ureteral stent was in proper position. A potential ileus was noted. Lactic acid level was not elevated making sepsis or bowel ischemia unlikely. The patient presented tachycardic. She was aggressively managed. The patient was given IV metoprolol 5 mg. This seemed to break the tachycardia. She received IV magnesium, IV potassium. She was given IV Tylenol. I did speak with cardiology, they recommended amiodarone if the atrial tachycardia were persisting despite the Lopressor dosing. I spoke with the patient and her family. She is in need of a repeat hospital stay. She requires monitoring, electrolyte replacement and symptom control. I spoke with case management, the on-call hospitalist was consulted. Prior/Outside records/notes reviewed: Cardiology note from 10/29/2023 discussing her hospitalization, her atrial tachycardia, her atrial fibrillation and the insertion of a drug-eluting stent into the left anterior descending artery. ECG per my interpretation: Indication was tachycardia. The initial ECG showed a sinus tachycardia with some inverted T waves across the anterior lateral leads. There was no ST elevation, no PVCs. The QTc was 482. Repeat ECG per my interpretation: Indication was tachycardia. The ECG shows what appears to be a potential SVT versus atrial tachycardia. The rate was 144. There were inverted T waves seen across the anterior lateral leads. There was no acute ST elevation, no PVCs, the QTc was 535. Repeat ECG per my interpretation: Indication was tachycardia. The ECG shows a normal sinus rhythm with a rate of 79. There are T wave inversions along the anterior and lateral leads. There is no acute ST elevation, no PVCs. The QTc was 554. Compared to an ECG from 27 October 2023, the T wave inversions are less pronounced. Continuous Cardiac Monitoring per my interpretation: An order was placed for continuous cardiac monitoring. The monitor shows a rate of 68 with normal sinus rhythm. Imaging/x-ray results per my interpretation: Chest x-ray shows a poor inspiratory effort. No heart failure or free air. Chronic Medical/Social conditions affecting care: Advanced age, recent LAD stenting, recent diagnosis of sepsis. Care/Management discussed with: Cardiology-Dr. Hayes. Case management and the on-call hospitalist. Level of care consideration(s): After review of the information above and other included data: --I believe the patient requires escalation of care to admission Critical Care Note: I have personally spent 48 minutes of critical care time in the direct management of this patient. This includes bedside care, interpretation of diagnostic studies, and testing, discussion with consultants, patient, and family members, and other required patient management activities. This 48 minutes is in excess of all separately billable procedures. DISPOSITION: Admission Past Med/Surg History Problem List (Updated 10/28/23 @ 00:07 by Background Daemon) Hypokalemia (Acute) Diffuse abdominal pain (Acute) Hypomagnesemia (Acute) Elevated troponin (Acute) Confusion (Acute) Tachycardia (Acute) Status post insertion of drug-eluting stent into left anterior descending (LAD) artery Paroxysmal atrial fibrillation Coronary artery disease due to type 2 diabetes mellitus Diabetes mellitus type 2, uncomplicated Ureteral stent present Acute on chronic combined systolic and diastolic heart failure Hypoxia (Acute) Congestive heart failure (Acute) Complicated UTI (urinary tract infection) Gram-negative bacteremia Abnormal echocardiogram Bacteremia Premature atrial contractions Demand ischemia Severe sepsis Elevated lactic acid level (Acute) Hypomagnesemia (Acute) Somnolence (Acute) Elevated troponin (Acute) Leukocytosis (Acute) Acute UTI (Acute) Confusion (Acute) Acute kidney injury Bladder mass Abdominal pain, LLQ (Acute) Left flank pain Hydronephrosis Left ureteral calculus UTI (urinary tract infection) Tachy-bob syndrome Wenckebach Atrial tachycardia, paroxysmal Sinus tachycardia Arrhythmia (Acute) Acute electrocardiogram changes Tachycardia (Acute) Constipation (Acute) HTN (hypertension) (Chronic) GERD (gastroesophageal reflux disease) (Chronic) Migraine (Chronic) Dyslipidemia (Chronic) Vitamin D deficiency (Chronic) Osteoporosis (Chronic) Neuropathy (Chronic) H/O parathyroidectomy (Chronic) "09/26/13" Medical History Nephrolithiasis History of hydronephrosis Closed fracture of distal end of right fibula Glaucoma Bilateral tinnitus Chronic pain both feet and legs Neuropathy BOTH FEET AND LEGS Hyperlipidemia H/O parathyroidectomy Surgical History Hx of bilateral cataract extraction Hx of cholecystectomy History of back surgery lower Family History Other Cancer Social History Smoking Status: Never smoker Tobacco Type: Cigarettes Second Hand Exposure: No; Do You Dip or Chew Tobacco: No; Hx Alcohol Use: No Hx Substance Use: No Preferred Language: Cambodian Communication Ability: Effective Visual Impairment: No Limitations Hearing Ability: Normal Inspector [employer]ing Required: No Beliefs That Will Affect Care: None marital status: / Current Living Situation: Family Current Living Situation Comment: lives with daughter How many Children do You have: 2 Feels Safe at Home: Yes Assistive Devices: Raised Toilet Seat and Walker Allergies Allergies Allergy/AdvReac Type Severity Reaction Status Date / Time No Known Allergies Allergy Verified 10/31/23 20:23 Home Meds Home Medications Medication Instructions Recorded Confirmed multivitamin 1 tab PO QAM 05/03/18 10/31/23 omeprazole 20 mg tablet,delayed 20 mg PO BID 05/03/18 10/31/23 release dorzolamide 22.3 mg-timolol 6.8 1 drp OPB 06/01/18 10/31/23 mg/mL eye drops (Cosopt) duloxetine 60 mg capsule,delayed 60 mg PO DAILY 06/01/18 10/31/23 release (Cymbalta) latanoprost 0.005 % eye drops 1 drp OPB [facility] 06/01/18 10/31/23 (Xalatan) aspirin 81 mg tablet,delayed 81 mg PO QAM 06/24/20 10/31/23 release (Ed Low Dose Aspirin) calcitriol 0.5 mcg capsule 1 mcg PO QAM 09/25/23 10/31/23 rosuvastatin 10 mg tablet 10 mg PO HS 09/25/23 10/31/23 latanoprostene bunod 0.024 % eye 1 drp OPB 10/13/23 10/31/23 drops (Vyzulta) phenazopyridine 100 mg tablet 100 mg PO TID 10/23/23 10/31/23 Previous Rx's Medication Instructions Recorded tamsulosin 0.4 mg capsule (Flomax) 0.4 mg PO DAILY kidney stone #30 10/07/23 caps losartan 25 mg tablet 12.5 mg (1/2 x 25 mg) PO QAM 30 10/22/23 days #15 tabs metoprolol succinate 25 mg 25 mg PO BID 30 days #60 tabs 10/22/23 tablet,extended release 24 hr clopidogrel 75 mg tablet 75 mg PO QAM #30 tabs 10/29/23 furosemide 40 mg tablet 40 mg PO QAM #30 tabs 10/29/23 Results & Data (ED) Vital Signs Vital Signs - 24 hr 10/31/23 19:03 10/31/23 19:35 10/31/23 19:43 Temperature 36.2 C L Temperature Source Temporal Artery Scan Pulse Rate 155 H 132 H Pulse Rate [Left Apical] 83 Respiratory Rate 16 24 Respiratory Effort / Characteristics Non-Labored Spontaneous Non-Labored Spontaneous Respiratory Depth Normal Normal Respiratory Pattern Regular Regular Blood Pressure 128/73 135/75 Blood Pressure [Right Arm] 123/64 Blood Pressure Mean 91 Blood Pressure Mean [Right Arm] 83 Pulse Oximetry 91 91 Oxygen Delivery Method Room Air Room Air Sepsis Recent Fever Within 48 Hours No Sepsis New/Unexplained Change in Mental Status No Sepsis Action Taken by Nursing No Action Required 10/31/23 20:07 10/31/23 20:44 10/31/23 21:00 Temperature Temperature Source Pulse Rate Pulse Rate [Left Apical] 97 H Respiratory Rate 22 Respiratory Effort / Characteristics Non-Labored Spontaneous Respiratory Depth Normal Respiratory Pattern Regular Blood Pressure 127/62 Blood Pressure [Right Arm] 116/52 L 109/53 L Blood Pressure Mean Blood Pressure Mean [Right Arm] 73 71 Pulse Oximetry 91 Oxygen Delivery Method Room Air Sepsis Recent Fever Within 48 Hours Sepsis New/Unexplained Change in Mental Status Sepsis Action Taken by Nursing 10/31/23 21:04 10/31/23 21:29 10/31/23 21:31 Temperature Temperature Source Pulse Rate Pulse Rate [Left Apical] 74 68 Respiratory Rate 21 Respiratory Effort / Characteristics Non-Labored Spontaneous Respiratory Depth Normal Respiratory Pattern Regular Blood Pressure Blood Pressure [Right Arm] 116/53 L Blood Pressure Mean Blood Pressure Mean [Right Arm] 74 Pulse Oximetry 90 Oxygen Delivery Method Room Air Sepsis Recent Fever Within 48 Hours Sepsis New/Unexplained Change in Mental Status Sepsis Action Taken by Group Home Medications Current Medication List: was personally reviewed by me Laboratory Data Attestation: I reviewed the patient's lab results. 10/31/23 19:32 10/31/23 19:32 Lab Results 10/31/23 Range/Units 19:32 WBC 8.41 (4.8-10.8) K/ul RBC 4.24 (4.20-5.40) M/uL Hgb 12.6 (12.0-16.0) g/dl Hct 39.0 (37.0-47.0) % MCV 92.0 (80.0-100.0) fL MCH 29.7 (25.0-34.0) pg MCHC 32.3 (32.0-36.0) g/dL RDW Std Deviation 44.0 (36.4-46.3) fL RDW Coeff of Didi 13.2 (11.5-14.5) % Plt Count 286 (130-400) K/uL MPV 9.7 (9.4-12.4) fL Immature Gran % (Auto) 0.6 % Neut % (Auto) 76.1 % Lymph % (Auto) 15.0 % Alger % (Auto) 7.7 % Eos % (Auto) 0.2 % Baso % (Auto) 0.4 % Neut # (Auto) 6.40 (1.40-6.50) K/uL Lymph # (Auto) 1.26 (1.20-3.40) K/uL Alger # (Auto) 0.65 H (0.11-0.59) K/uL Eos # (Auto) 0.02 (0.00-0.50) K/uL Baso # (Auto) 0.03 (0.00-0.20) K/uL Immature Gran # (Auto) 0.05 (0.01-0.20) K/uL PT 12.1 H (9.0-12.0) Seconds INR 1.1 (0.9-1.1) APTT 28 (21-31) Seconds PTT Ratio 1.0 Sodium 138 (136-145) mmol/L Potassium 3.1 L (3.5-5.1) mmol/L Chloride 98 (98-107) mmol/L Carbon Dioxide 26 (21-32) mmol/L Anion Gap 14 H (3-11) BUN 15 (6-23) mg/dl Creatinine 0.83 (0.6-1.2) mg/dl Est Cr Clr Drug Dosing 43.1 ml/min Est GFR ( Amer) 76.1 ml/min Est GFR (Non-Af Amer) 65.7 ml/min BUN/Creatinine Ratio 18.1 (10-20) Glucose 134 H (70-99(Fasting)) mg/dl Lactate 1.5 (0.4-2.0) mmol/L Calcium 8.5 L (8.6-10.3) mg/dl Magnesium 1.4 L (1.7-2.4) mg/dl Total Bilirubin 0.7 (0.2-1.0) mg/dl AST 15 (13-39) U/L ALT 14 (7-52) U/L Alkaline Phosphatase 56 (34-104) U/L Troponin I High Sens 51.5 H* (0-14) pg/ml Total Protein 7.3 (6.0-8.3) gm/dl Albumin 3.7 (3.4-5.0) gm/dl Globulin 3.6 (2.5-4.0) gm/dl Albumin/Globulin Ratio 1.0 (0.9-2) TSH 1.724 (0.300-4.500) uIu/ml Administered Medications Magnesium Sulfate/Dextrose (Magnesium Sulfate / D5w) 1 gm in 100 mls @ 100 mls/hr IV Q1H MARILY Stop: 10/31/23 22:15 Last Admin: 10/31/23 20:46 Dose: 100 mls/hr Documented By: [facility] Discontinued Medications Acetaminophen (Ofirmev) 1,000 mg in 100 mls @ 400 mls/hr IV NOW STA Stop: 10/31/23 19:34 Last Infusion: 10/31/23 19:52 Dose: Infused Documented By: [facility] Admin: 10/31/23 19:37 Dose: 400 mls/hr Documented By: [facility] Potassium Chloride (K Haseeb / Wtr) 10 meq in 100 mls @ 100 mls/hr IV ONE ONE Stop: 10/31/23 21:15 Last Admin: 10/31/23 20:46 Dose: 100 mls/hr Documented By: [facility] Metoprolol Tartrate (Metoprolol Tartrate 1 Mg/Ml Vial) 5 mg IV NOW STA Stop: 10/31/23 19:21 Last Admin: 10/31/23 19:35 Dose: 5 mg Documented By: [facility] Imaging Data Radiologist's Impression: Abdomen/Pelvis CT 10/31/23 19:20 Exam(s): CT ABDOMEN + PELVIS Without Contrast EXAM: CT Abdomen and Pelvis Without Intravenous Contrast CLINICAL HISTORY: Reason for exam: pain, has urinary stent. TECHNIQUE: Axial computed tomography images of the abdomen and pelvis without intravenous contrast. CTDI is 23.2 mGy and DLP is 1179 mGy-cm. Automated exposure control was utilized for the study. A dose lowering technique was utilized adhering to the principles of ALARA. COMPARISON: October 13, 2023 FINDINGS: Lung bases: Unremarkable. No mass. No consolidation. Heart: Mild cardiomegaly and coronary calcification. No pericardial effusion. ABDOMEN: Liver: Unremarkable. Gallbladder and bile ducts: Unremarkable. No calcified stones. No ductal dilation. Pancreas: Unremarkable. No ductal dilation. Spleen: Unremarkable. No splenomegaly. Adrenals: Unremarkable. No mass. Kidneys and ureters: There is a left-sided double-J ureteral stent in place, unchanged in position since previous. No hydronephrosis or ureterolithiasis is seen involving either kidney. Simple cyst measuring 1.5 cm in the right kidney, unchanged. No follow-up is required. Stomach and bowel: There are scattered gas fluid levels throughout fluid-filled distended but nondilated right and transverse colon which is abnormal and suggests ileus. There is diverticulosis of the lower left and sigmoid colon without evidence of acute diverticulitis. No acute focal bowel inflammation, pneumoperitoneum, or abscess is seen. PELVIS: Appendix: No findings to suggest acute appendicitis. Bladder: Unremarkable. No stones. Reproductive: Unremarkable as visualized. ABDOMEN and PELVIS: Intraperitoneal space: See above. Bones/joints: Mild to moderate multilevel degenerative change are seen throughout the spine. No acute fracture or subluxation is seen. Soft tissues: Unremarkable. Vasculature: The abdominal aorta is severely calcified but nondilated measuring 2.4 cm. This is a noncontrast study. Lymph nodes: Unremarkable. No enlarged lymph nodes. IMPRESSION: 1. There is a left-sided double-J ureteral stent in place, unchanged in position since previous. No hydronephrosis or ureterolithiasis is seen involving either kidney. 2. There are scattered gas fluid levels throughout fluid-filled distended but nondilated right and transverse colon which is abnormal and suggests ileus. There is diverticulosis of the lower left and sigmoid colon without evidence of acute diverticulitis. No acute focal bowel inflammation, pneumoperitoneum, or abscess is seen. Electronically signed by: Lee Mandujano MD 10/31/23 21:[address] 10/31/23 19:20 Exam(s): CT HEAD Without Contrast EXAM: CT Head Without Intravenous Contrast CLINICAL HISTORY: Reason for exam: confusion. TECHNIQUE: Axial computed tomography images of the head/brain without intravenous contrast. CTDI is 36.7 mGy and DLP is 546.4 mGy-cm. Automated exposure control was utilized for the study. A dose lowering technique was utilized adhering to the principles of ALARA. COMPARISON: No relevant prior studies available. FINDINGS: Brain: Mild cerebral atrophy and periventricular white matter low density consistent with chronic small vessel disease and/or senescent changes. The brain is otherwise unremarkable. No acute large vessel infarct or intracranial hemorrhage is seen. Ventricles: Mildly dilated. No mass or hemorrhage. Bones/joints: Unremarkable. No acute fracture. Soft tissues: Unremarkable. Sinuses: Unremarkable as visualized. No acute sinusitis. Mastoid air cells: Unremarkable as visualized. No mastoid effusion. IMPRESSION: Mild cerebral atrophy and periventricular white matter low density consistent with chronic small vessel disease and/or senescent changes. The brain is otherwise unremarkable. No acute large vessel infarct or intracranial hemorrhage is seen. Electronically signed by: Lee Mandujano MD 10/31/23 20:59 PM Chest X-Ray 10/31/23 19:21 XR chest 1V portable CLINICAL HISTORY: weakness TECHNIQUE: Single frontal radiograph of the chest was obtained. Comparison: Comparison is made to chest radiograph 10/28/2023 FINDINGS: No lines and tubes are seen. Calcified aortic knob is seen. Lungs are underinflated but clear. No evidence of pleural effusion or pneumothorax. IMPRESSION: No acute chest disease. ACT 112: Negative or not required by law. Electronically signed by: Wander Estevez M.D. 10/31/2023 8:13 PM Discharge Plan Visit Data Chief Complaint: Abdominal Pain Stated Complaint: ABDOMINAL PAIN, ALTERED MENTAL STATUS ED Provider: Usama Wyman Discharge Problem: Tachycardia, Confusion, Elevated troponin, Hypomagnesemia, Diffuse abdominal pain, Hypokalemia Patient Disposition: Admitted As Inpatient Condition: Serious Forms Stand Alone Forms: needmade Prescriptions Prescriptions: No Action tamsulosin [Flomax] 0.4 mg capsule 0.4 mg PO DAILY Qty: 30 0RF latanoprost [Xalatan] 0.005 % drops 1 drp OPB [facility] dorzolamide-timolol [Cosopt] 22.3-6.8 mg/mL drops 1 drp OPB HS duloxetine [Cymbalta] 60 mg capsule,delayed release(DR/EC) 60 mg PO DAILY multivitamin Tablet 1 tab PO QAM omeprazole 20 mg Tablet,Delayed Release (Dr/Ec) 20 mg PO BID aspirin [Ed Low Dose Aspirin] 81 mg tablet,delayed release (DR/EC) 81 mg PO QAM calcitriol 0.5 mcg Capsule 1 mcg PO QAM rosuvastatin 10 mg Tablet 10 mg PO HS phenazopyridine 100 mg tablet 100 mg PO TID furosemide 40 mg Tablet 40 mg PO QAM Qty: 30 0RF clopidogrel 75 mg Tablet 75 mg PO QAM Qty: 30 0RF Vyzulta 0.024 % Drops 1 drp OPB HS losartan 25 mg Tablet 12.5 mg PO QAM 30 Days Qty: 15 0RF metoprolol succinate 25 mg Tablet Extended Release 24 Hr 25 mg PO BID 30 Days Qty: 60 0RF Referrals Referrals: Hernan Fernández MD [Primary Care Provider] -
[2023-10-31 19:47] LABS: Basophils % (auto) 0.4 %; Eosinophils % (auto) 0.2 %; Hemoglobin 12.6 g/dl (12.0-16.0); Immature Granulocytes % (auto) 0.6 %; Mean Corpuscular Hemoglobin 29.7 pg (25.0-34.0); Mean Corpuscular Hgb Conc 32.3 g/dL (32.0-36.0); Mean Platelet Volume 9.7 fL (9.4-12.4); Monocytes % (auto) 7.7 %; Neutrophils % (auto) 76.1 %; Platelet Count 286 K/uL (130-400); RDW Coefficient of Variation 13.2 % (11.5-14.5); Red Blood Count 4.24 M/uL (4.20-5.40); White Blood Count 8.41 K/ul (4.8-10.8)
[2023-10-31 19:48] LABS: Basophils # (auto) 0.03 K/uL (0.00-0.20); Eosinophils # (auto) 0.02 K/uL (0.00-0.50); Immature Granulocytes # (auto) 0.05 K/uL (0.01-0.20); Lymphocytes # (auto) 1.26 K/uL (1.20-3.40); Monocytes # (auto) 0.65 K/uL (0.11-0.59)
[2023-10-31 20:06] LABS: Albumin Level 3.7 gm/dl (3.4-5.0); BUN Creatinine Ratio 18.1 (10-20); Bilirubin,Total 0.7 mg/dl (0.2-1.0); Calcium 8.5 mg/dl (8.6-10.3); Creatinine Clr Calc Pharmacy 43.1 ml/min; Est GFR (African American) 76.1 ml/min; Est GFR (Non-African American) 65.7 ml/min; Globulin 3.6 gm/dl (2.5-4.0); Magnesium 1.4 mg/dl (1.7-2.4); Potassium 3.1 mmol/L (3.5-5.1); Total Protein 7.3 gm/dl (6.0-8.3)
--- NOTE | 2023-10-31 20:15 | XRay Report ---
XR chest 1V portable CLINICAL HISTORY: weakness TECHNIQUE: Single frontal radiograph of the chest was obtained. Comparison: Comparison is made to chest radiograph 10/28/2023 FINDINGS: No lines and tubes are seen. Calcified aortic knob is seen. Lungs are underinflated but clear. No brittany dence of pleural effusion or pneumothorax. IMPRESSION: No acute chest disease. ACT 112: Negative or not required by law. Electronically signed by: Wander Estevez M.D. 10/31/2023 8:13 PM
[2023-10-31 20:16] LABS: Troponin I High Sensitivity 51.5 pg/ml (0-14)
[2023-10-31 20:22] LABS: Thyroid Stimulating Hormone 1.724 uIu/ml (0.300-4.500)
[2023-10-31 20:33] LABS: INR 1.1 (0.9-1.1); Partial Thromboplastin Time 28 Seconds (21-31); Prothrombin Time 12.1 Seconds (9.0-12.0)
[2023-10-31] MEDS: MAGNESIUM SULFATE / D5W 1 GM/100 ML BAG IV SCH (20:46)
[2023-10-31] MEDS: POTASSIUM CHLORIDE / WTR 10 MEQ/100 ML PLCT IV ONE (20:46)
--- NOTE | 2023-10-31 20:59 | CT Scan Report ---
Exam(s): CT HEAD Without Contrast EXAM: CT Head Without Intravenous Contrast CLINICAL HISTORY: Reason for exam: confusion. TECHNIQUE: Axial computed tomography images of the head/brain without intravenous contrast. CTDI is 36.7 mGy and DLP is 546.4 mGy-cm. Automated exposure control was utilized for the study. A dose lowering technique was utilized adhering to the principles of ALARA. COMPARISON: No relevant prior studies available. FINDINGS: Brain: Mild cerebral atrophy and periventricular white matter low density consistent with chronic small vessel disease and/or senescent changes. The brain is otherwise unremarkable. No acute large vessel infarct or intracranial hemorrhage is seen. Ventricles: Mildly dilated. No mass or hemorrhage. Bones/joints: Unremarkable. No acute fracture. Soft tissues: Unremarkable. Sinuses: Unremarkable as visualized. No acute sinusitis. Mastoid air cells: Unremarkable as visualized. No mastoid effusion. IMPRESSION: Mild cerebral atrophy and periventricular white matter low density consistent with chronic small vessel disease and/or senescent changes. The brain is otherwise unremarkable. No acute large vessel infarct or intracranial hemorrhage is seen. Electronically signed by: Lee Mandujano MD 10/31/23 20:59 PM
--- NOTE | 2023-10-31 21:03 | CT Scan Report ---
Exam(s): CT ABDOMEN + PELVIS Without Contrast EXAM: CT Abdomen and Pelvis Without Intravenous Contrast CLINICAL HISTORY: Reason for exam: pain, has urinary stent. TECHNIQUE: Axial computed tomography images of the abdomen and pelvis without intravenous contrast. CTDI is 23.2 mGy and DLP is 1179 mGy-cm. Automated exposure control was utilized for the study. A dose lowering technique was utilized adhering to the principles of ALARA. COMPARISON: October 13, 2023 FINDINGS: Lung bases: Unremarkable. No mass. No consolidation. Heart: Mild cardiomegaly and coronary calcification. No pericardial effusion. ABDOMEN: Liver: Unremarkable. Gallbladder and bile ducts: Unremarkable. No calcified stones. No ductal dilation. Pancreas: Unremarkable. No ductal dilation. Spleen: Unremarkable. No splenomegaly. Adrenals: Unremarkable. No mass. Kidneys and ureters: There is a left-sided double-J ureteral stent in place, unchanged in position since previous. No hydronephrosis or ureterolithiasis is seen involving either kidney. Simple cyst measuring 1.5 cm in the right kidney, unchanged. No follow-up is required. Stomach and bowel: There are scattered gas fluid levels throughout fluid-filled distended but nondilated right and transverse colon which is abnormal and suggests ileus. There is diverticulosis of the lower left and sigmoid colon without evidence of acute diverticulitis. No acute focal bowel inflammation, pneumoperitoneum, or abscess is seen. PELVIS: Appendix: No findings to suggest acute appendicitis. Bladder: Unremarkable. No stones. Reproductive: Unremarkable as visualized. ABDOMEN and PELVIS: Intraperitoneal space: See above. Bones/joints: Mild to moderate multilevel degenerative change are seen throughout the spine. No acute fracture or subluxation is seen. Soft tissues: Unremarkable. Vasculature: The abdominal aorta is severely calcified but nondilated measuring 2.4 cm. This is a noncontrast study. Lymph nodes: Unremarkable. No enlarged lymph nodes. IMPRESSION: 1. There is a left-sided double-J ureteral stent in place, unchanged in position since previous. No hydronephrosis or ureterolithiasis is seen involving either kidney. 2. There are scattered gas fluid levels throughout fluid-filled distended but nondilated right and transverse colon which is abnormal and suggests ileus. There is diverticulosis of the lower left and sigmoid colon without evidence of acute diverticulitis. No acute focal bowel inflammation, pneumoperitoneum, or abscess is seen. Electronically signed by: Lee Mandujano MD 10/31/23 21:02 PM
[2023-10-31 23:17] LABS: Appearance Urine Clear (Clear)
[2023-10-31 23:20] LABS: WBC Urine 21-50 /hpf (0-5)
[2023-10-31 23:21] LABS: Bacteria Urine 4+ (None Seen); Epithelial Cell Urine 0-2 /hpf (0-2)
--- NOTE | 2023-10-31 23:39 | History & Physical Report ---
Date of Service October 31, 2023 Assessment & Plan (1) Diffuse abdominal pain: Plan: 82-year-old female with past medical history significant for dyslipidemia, surgical hypoparathyroidism, prediabetes, peripheral artery disease, paroxysmal atrial tachycardia, tachybradycardia syndrome, hypertension, moderate aortic regurgitation, first-degree AV block, GERD, CKD stage III, classical migraines, sensorineural hearing loss both ears, polyneuropathy, open-angle glaucoma, presents with abdominal pain and also found to have atrial tachycardia with heart rates in 140s which improved after 1 dose of IV Lopressor. Patient states she drank iced tea today. Around 2 PM she developed abdominal pain. All over the abdomen 8/10 in severity. No nausea. Normal bowel movement in the afternoon. Because of abdominal pain she came to the ER. Currently abdominal pain resolved. She stated she is passing a lot of gas. CAT scan showing possible ileus. UA is pending. Denies any fevers. Denies any burning micturition. Denies any hematuria. Denies any chest pain or shortness of breath. No cough. No headache. Vision is okay , no runny nose or sore throat. Currently resting comfortably and hemodynamics are okay. Patient was recently in the hospital and discharged on 10/29/23 for acute on chronic combined systolic and diastolic CHF and also had atrial tachycardia and paroxysmal atrial fibrillation .During that admission also had cardiac cath with drug-eluting stent to the LAD .Also tachybradycardia syndrome with bradycardia possibly on higher dose of metoprolol and because risk of fall anticoagulation with Eliquis was not started and she is on currently on aspirin and Plavix. Patient was also admitted in the early October with complicated UTI with Pseudomonas bacteremia treated with antibiotics.Patient also had severe sepsis and acute UTI in and was s/p left ureteral stent placement on 09/25/2023 by urology and also found to have bladder mass at the time. Plan for definitive stone surgery and TURBT scheduled for 11/09. Abdominal pain CT scan showing possible ileus currently pain resolved no nausea had bowel movement today will place on clear liquid diet follow KUB in a.m. if recurs will consult surgery//GI atrial tachycardia/a A-fib improved after the dose of IV Lopressor plan for amiodarone if recurs continue home metoprolol on aspirin and Plavix not on anticoagulation because of fall risk cardiology consult in a.m. Hypokalemia and hypomagnesia will replace follow repeat labs elevated troponin mostly demand ischemia initial troponin 51.5 and repeat is 50.8 we will follow serial enzymes. history of CAD recent drug-eluting stent to the LAD on aspirin and Plavix and metoprolol and rosuvastatin Prolonged QTc avoid QT prolonging drugs will follow repeat EKG. kidney stone bladder mass recent UTI and sepsis s/p left ureteral stent stent in place and CAT scan will follow urinalysis on Flomax plan for definitive stone surgery and TURBT on 11/09 chronic systolic and diastolic CHF EF 40 to 45% echo done 10/23/2023 continue home Lasix and metoprolol succinate and losartan will monitor for volume overload hypertension on metoprolol succinate, losartan and diuretics we will monitor hyperlipidemia on statin prediabetes HbA1c 6.1 on 10/23/2023 DVT prophylaxis heparin subcu disposition telemetry full code. Addendum: Later UA came back positive and patient was spiking temperatures. Placed on iv zosyn and iv vancomycin. Lactic acid 2.1. Placed on fluids. To monitor for volume overload and follow repeat lactic acid. Consulted Urology as patient recently had left ureter stent. Close monitor. History of Present Illness Chief Complaint: abdominal pain and atrial tachycardia Primary Care Provider: Hernan Fernández MD 82-year-old female with past medical history significant for dyslipidemia, surgical hypoparathyroidism, prediabetes, peripheral artery disease, paroxysmal atrial tachycardia, tachybradycardia syndrome, hypertension, moderate aortic regurgitation, first-degree AV block, GERD, CKD stage III, classical migraines, sensorineural hearing loss both ears, polyneuropathy, open-angle glaucoma, presents with abdominal pain and also found to have atrial tachycardia with heart rates in 140s which improved after 1 dose of IV Lopressor. Patient states she drank iced tea today. Around 2 PM she developed abdominal pain. All over the abdomen 8/10 in severity. No nausea. Normal bowel movement in the afternoon. Because of abdominal pain she came to the ER. Currently abdominal pain resolved. She stated she is passing a lot of gas. CAT scan showing p ossible ileus. UA is pending. Denies any fevers. Denies any burning micturition. Denies any hematuria. Denies any chest pain or shortness of breath. No cough. No headache. Vision is okay , no runny nose or sore throat. Currently resting comfortably and hemodynamics are okay. Patient was recently in the hospital and discharged on 10/29/23 for acute on chronic combined systolic and diastolic CHF and also had atrial tachycardia and paroxysmal atrial fibrillation .During that admission also had cardiac cath with drug-eluting stent to the LAD .Also tachybradycardia syndrome with bradycardia possibly on higher dose of metoprolol and because risk of fall anticoagulation with Eliquis was not started and she is on currently on aspirin and Plavix. Patient was also admitted in the early October with complicated UTI with Pseudomonas bacteremia treated with antibiotics.Patient also had severe sepsis and acute UTI in and was s/p left ureteral stent placement on 09/25/2023 by urology and also found to have bladder mass at the time. Plan for definitive stone surgery and TURBT scheduled for 11/09. past medical history. As mentioned above past surgical history. Cardiac cath and stent placement. Left ureteral stent placement. EGD. EGD with biopsy. Parathyroidectomy. Appendectomy. Cholecystectomy. Lumbar disc excision. Removal of pilonidal cyst. Social history. . Lives with daughter. Quit smoking 1986. No alcohol use. No drug use. Family history. Father had prostate cancer. Mother had uterine cancer. Brother had back problems. Daughter has back problems. Allergies Allergy/AdvReac Type Severity Reaction Status Date / Time No Known Allergies Allergy Verified 10/31/23 20:23 Home Medications Medication Instructions Recorded Confirmed Type multivitamin 1 tab PO QAM 05/03/18 10/31/23 History omeprazole 20 mg tablet,delayed 20 mg PO BID 05/03/18 10/31/23 History release dorzolamide 22.3 mg-timolol 6.8 1 drp OPB HS 06/01/18 10/31/23 History mg/mL eye drops (Cosopt) duloxetine 60 mg capsule,delayed 60 mg PO DAILY 06/01/18 10/31/23 History release (Cymbalta) latanoprost 0.005 % eye drops 1 drp OPB AMHS 06/01/18 10/31/23 History (Xalatan) aspirin 81 mg tablet,delayed 81 mg PO QAM 06/24/20 10/31/23 History release (Ed Low Dose Aspirin) calcitriol 0.5 mcg capsule 1 mcg PO QAM 09/25/23 10/31/23 History rosuvastatin 10 mg tablet 10 mg PO HS 09/25/23 10/31/23 History tamsulosin 0.4 mg capsule (Flomax) 0.4 mg PO DAILY kidney stone #30 10/07/23 10/31/23 Rx caps latanoprostene bunod 0.024 % eye 1 drp OPB HS 10/13/23 10/31/23 History drops (Vyzulta) losartan 25 mg tablet 12.5 mg (1/2 x 25 mg) PO QAM 30 10/22/23 10/31/23 Rx days #15 tabs metoprolol succinate 25 mg 25 mg PO BID 30 days #60 tabs 10/22/23 10/31/23 Rx tablet,extended release 24 hr phenazopyridine 100 mg tablet 100 mg PO TID 10/23/23 10/31/23 History clopidogrel 75 mg tablet 75 mg PO QAM #30 tabs 10/29/23 10/31/23 Rx furosemide 40 mg tablet 40 mg PO QAM #30 tabs 10/29/23 10/31/23 Rx Past Med/Surg History Problem List (Updated 10/28/23 @ 00:07 by Background Daemon) Hypokalemia (Acute) Diffuse abdominal pain (Acute) Hypomagnesemia (Acute) Elevated troponin (Acute) Confusion (Acute) Tachycardia (Acute) Status post insertion of drug-eluting stent into left anterior descending (LAD) artery Paroxysmal atrial fibrillation Coronary artery disease due to type 2 diabetes mellitus Diabetes mellitus type 2, uncomplicated Ureteral stent present Acute on chronic combined systolic and diastolic heart failure Hypoxia (Acute) Congestive heart failure (Acute) Complicated UTI (urinary tract infection) Gram-negative bacteremia Abnormal echocardiogram Bacteremia Premature atrial contractions Demand ischemia Severe sepsis Elevated lactic acid level (Acute) Hypomagnesemia (Acute) Somnolence (Acute) Elevated troponin (Acute) Leukocytosis (Acute) Acute UTI (Acute) Confusion (Acute) Acute kidney injury Bladder mass Abdominal pain, LLQ (Acute) Left flank pain Hydronephrosis Left ureteral calculus UTI (urinary tract infection) Tachy-bob syndrome Wenckebach Atrial tachycardia, paroxysmal Sinus tachycardia Arrhythmia (Acute) Acute electrocardiogram changes Tachycardia (Acute) Constipation (Acute) HTN (hypertension) (Chronic) GERD (gastroesophageal reflux disease) (Chronic) Migraine (Chronic) Dyslipidemia (Chronic) Vitamin D deficiency (Chronic) Osteoporosis (Chronic) Neuropathy (Chronic) H/O parathyroidectomy (Chronic) "09/26/13" Medical History Nephrolithiasis History of hydronephrosis Closed fracture of distal end of right fibula Glaucoma Bilateral tinnitus Chronic pain both feet and legs Neuropathy BOTH FEET AND LEGS Hyperlipidemia H/O parathyroidectomy Surgical History Hx of bilateral cataract extraction Hx of cholecystectomy History of back surgery lower Family History Other Cancer Social History Smoking Status: Never smoker Tobacco Type: Cigarettes Second Hand Exposure: No; Do You Dip or Chew Tobacco: No; Tobacco Cessation Education Requested by Patient: No Hx Alcohol Use: No Hx Substance Use: No Preferred Language: [place] Communication Ability: Effective Visual Impairment: No Limitations Hearing Ability: Normal Information Technology Account Manager Required: No Beliefs That Will Affect Care: None marital status: / Current Living Situation: Family Current Living Situation Comment: lives with daughter How many Children do You have: 2 Other Information That Helps Us Care for You: No Feels Safe at Home: Yes Safety Concerns: Feels Safe At This Time Assistive Devices: Walker Review of Systems Review of Systems: All systems reviewed & are unremarkable except as noted in HPI & below Physical Exam Physical Exam: General- Not in distress. Somewhat hard of hearing. Head- atraumatic Eyes- PERRL. ENT- oropharynx clear Neck- supple, no JVD. Lungs- clear to auscultation no wheezing or crackles. Heart- regular rhythm; no murmur, no gallop. Abdomen- normal bowel sounds, soft, nontender, no distension Extremities- no pretibial edema, no erythema seen Neuro- alert, oriented PERRL, no facial palsy; no dysarthria; moves extremities. Results & Data Results & Data Vital Signs (Past 12 Hours) Vital Signs Temp Pulse Pulse Resp BP BP Pulse Ox 10/31/23 21:31 116/53 L 10/31/23 21:29 68 21 90 10/31/23 21:04 74 10/31/23 21:00 109/53 L 10/31/23 20:44 97 H 22 116/52 L 91 10/31/23 20:07 127/62 10/31/23 19:43 83 24 123/64 91 10/31/23 19:35 132 H 135/75 10/31/23 19:21 138 H 10/31/23 19:03 36.2 C L 155 H 16 128/73 91 O2 Del Method 10/31/23 21:31 10/31/23 21:29 Room Air 10/31/23 21:04 10/31/23 21:00 10/31/23 20:44 Room Air 10/31/23 20:07 10/31/23 19:43 Room Air 10/31/23 19:35 10/31/23 19:21 10/31/23 19:03 Room Air Diagnostic Findings Laboratory Results WBC 8.41 K/ul (4.8-10.8) 10/31/23 19:32 RBC 4.24 M/uL (4.20-5.40) 10/31/23 19:32 Hgb 12.6 g/dl (12.0-16.0) 10/31/23 19:32 Hct 39.0 % (37.0-47.0) 10/31/23 19:32 MCV 92.0 fL (80.0-100.0) 10/31/23 19:32 MCH 29.7 pg (25.0-34.0) 10/31/23 19:32 MCHC 32.3 g/dL (32.0-36.0) 10/31/23 19:32 RDW Std Deviation 44.0 fL (36.4-46.3) 10/31/23 19:32 RDW Coeff of Didi 13.2 % (11.5-14.5) 10/31/23 19:32 Plt Count 286 K/uL (130-400) 10/31/23 19:32 MPV 9.7 fL (9.4-12.4) 10/31/23 19:32 Immature Gran % (Auto) 0.6 % 10/31/23 19:32 Neut % (Auto) 76.1 % 10/31/23 19:32 Lymph % (Auto) 15.0 % 10/31/23 19:32 [place] % (Auto) 7.7 % 10/31/23 19:32 Eos % (Auto) 0.2 % 10/31/23 19:32 Baso % (Auto) 0.4 % 10/31/23 19:32 Neut # (Auto) 6.40 K/uL (1.40-6.50) 10/31/23 19:32 Lymph # (Auto) 1.26 K/uL (1.20-3.40) 10/31/23 19:32 [place] # (Auto) 0.65 K/uL (0.11-0.59) H 10/31/23 19:32 Eos # (Auto) 0.02 K/uL (0.00-0.50) 10/31/23 19:32 Baso # (Auto) 0.03 K/uL (0.00-0.20) 10/31/23 19:32 Immature Gran # (Auto) 0.05 K/uL (0.01-0.20) 10/31/23 19:32 PT 12.1 Seconds (9.0-12.0) H 10/31/23 19:32 INR 1.1 (0.9-1.1) 10/31/23 19:32 APTT 28 Seconds (21-31) 10/31/23 19:32 PTT Ratio 1.0 10/31/23 19:32 Sodium 138 mmol/L (136-145) 10/31/23 19:32 Potassium 3.1 mmol/L (3.5-5.1) L 10/31/23 19:32 Chloride 98 mmol/L (98-107) 10/31/23 19:32 Carbon Dioxide 26 mmol/L (21-32) 10/31/23 19:32 Anion Gap 14 (3-11) H 10/31/23 19:32 BUN 15 mg/dl (6-23) 10/31/23 19:32 Creatinine 0.83 mg/dl (0.6-1.2) 10/31/23 19:32 Est Cr Clr Drug Dosing 43.1 ml/min 10/31/23 19:32 Est GFR ( Amer) 76.1 ml/min 10/31/23 19:32 Est GFR (Non-Af Amer) 65.7 ml/min 10/31/23 19:32 BUN/Creatinine Ratio 18.1 (10-20) 10/31/23 19:32 Glucose 134 mg/dl (70-99(Fasting)) H 10/31/23 19:32 Lactate 1.5 mmol/L (0.4-2.0) 10/31/23 19:32 Calcium 8.5 mg/dl (8.6-10.3) L 10/31/23 19:32 Magnesium 1.4 mg/dl (1.7-2.4) L 10/31/23 19:32 Total Bilirubin 0.7 mg/dl (0.2-1.0) 10/31/23 19:32 AST 15 U/L (13-39) 10/31/23 19:32 ALT 14 U/L (7-52) 10/31/23 19:32 Alkaline Phosphatase 56 U/L (34-104) 10/31/23 19:32 Troponin I High Sens 50.8 pg/ml (0-14) H* 10/31/23 21:17 Total Protein 7.3 gm/dl (6.0-8.3) 10/31/23 19:32 Albumin 3.7 gm/dl (3.4-5.0) 10/31/23 19:32 Globulin 3.6 gm/dl (2.5-4.0) 10/31/23 19:32 Albumin/Globulin Ratio 1.0 (0.9-2) 10/31/23 19:32 TSH 1.724 uIu/ml (0.300-4.500) 10/31/23 19:32 Urine Color See Comment 10/31/23 22:51 Urine Appearance Clear (Clear) 10/31/23 22:51 Urine pH Not Reportable 10/31/23 22:51 Ur Specific [place] 1.010 (1.000-1.030) 10/31/23 22:51 Urine Protein Not Reportable 10/31/23 22:51 Urine Glucose (UA) Not Reportable 10/31/23 22:51 Urine Ketones Not Reportable 10/31/23 22:51 Urine Blood Not Reportable 10/31/23 22:51 Urine Nitrite Not Reportable 10/31/23 22:51 Urine Bilirubin Not Reportable 10/31/23 22:51 Urine Urobilinogen Not Reportable 10/31/23 22:51 Ur Leukocyte Esterase Not Reportable 10/31/23 22:51 Urine RBC 3-5 /hpf (0-2) H 07/20/24 22:51 Urine WBC 21-50 /hpf (0-5) H 10/31/23 22:51 Ur Epithelial Cells 0-2 /hpf (0-2) 10/31/23 22:51 Urine Bacteria 4+ (None Seen) H 10/31/23 22:51 Impressions Abdomen/Pelvis CT 10/31/23 19:20 Exam(s): CT ABDOMEN + PELVIS Without Contrast EXAM: CT Abdomen and Pelvis Without Intravenous Contrast CLINICAL HISTORY: Reason for exam: pain, has urinary stent. TECHNIQUE: Axial computed tomography images of the abdomen and pelvis without intravenous contrast. CTDI is 23.2 mGy and DLP is 1179 mGy-cm. Automated exposure control was utilized for the study. A dose lowering technique was utilized adhering to the principles of ALARA. COMPARISON: October 13, 2023 FINDINGS: Lung bases: Unremarkable. No mass. No consolidation. Heart: Mild cardiomegaly and coronary calcification. No pericardial effusion. ABDOMEN: Liver: Unremarkable. Gallbladder and bile ducts: Unremarkable. No calcified stones. No ductal dilation. Pancreas: Unremarkable. No ductal dilation. Spleen: Unremarkable. No splenomegaly. Adrenals: Unremarkable. No mass. Kidneys and ureters: There is a left-sided double-J ureteral stent in place, unchanged in position since previous. No hydronephrosis or ureterolithiasis is seen involving either kidney. Simple cyst measuring 1.5 cm in the right kidney, unchanged. No follow-up is required. Stomach and bowel: There are scattered gas fluid levels throughout fluid-filled distended but nondilated right and transverse colon which is abnormal and suggests ileus. There is diverticulosis of the lower left and sigmoid colon without evidence of acute diverticulitis. No acute focal bowel inflammation, pneumoperitoneum, or abscess is seen. PELVIS: Appendix: No findings to suggest acute appendicitis. Bladder: Unremarkable. No stones. Reproductive: Unremarkable as visualized. ABDOMEN and PELVIS: Intraperitoneal space: See above. Bones/joints: Mild to moderate multilevel degenerative change are seen throughout the spine. No acute fracture or subluxation is seen. Soft tissues: Unremarkable. Vasculature: The abdominal aorta is severely calcified but nondilated measuring 2.4 cm. This is a noncontrast study. Lymph nodes: Unremarkable. No enlarged lymph nodes. IMPRESSION: 1. There is a left-sided double-J ureteral stent in place, unchanged in position since previous. No hydronephrosis or ureterolithiasis is seen involving either kidney. 2. There are scattered gas fluid levels throughout fluid-filled distended but nondilated right and transverse colon which is abnormal and suggests ileus. There is diverticulosis of the lower left and sigmoid colon without evidence of acute diverticulitis. No acute focal bowel inflammation, pneumoperitoneum, or abscess is seen. Electronically signed by: Lee Mandujano MD 10/31/23 21:[address] 10/31/23 19:20 Exam(s): CT HEAD Without Contrast EXAM: CT Head Without Intravenous Contrast CLINICAL HISTORY: Reason for exam: confusion. TECHNIQUE: Axial computed tomography images of the head/brain without intravenous contrast. CTDI is 36.7 mGy and DLP is 546.4 mGy-cm. Automated exposure control was utilized for the study. A dose lowering technique was utilized adhering to the principles of ALARA. COMPARISON: No relevant prior studies available. FINDINGS: Brain: Mild cerebral atrophy and periventricular white matter low density consistent with chronic small vessel disease and/or senescent changes. The brain is otherwise unremarkable. No acute large vessel infarct or intracranial hemorrhage is seen. Ventricles: Mildly dilated. No mass or hemorrhage. Bones/joints: Unremarkable. No acute fracture. Soft tissues: Unremarkable. Sinuses: Unremarkable as visualized. No acute sinusitis. Mastoid air cells: Unremarkable as visualized. No mastoid effusion. IMPRESSION: Mild cerebral atrophy and periventricular white matter low density consistent with chronic small vessel disease and/or senescent changes. The brain is otherwise unremarkable. No acute large vessel infarct or intracranial hemorrhage is seen. Electronically signed by: Lee Mandujano MD 10/31/23 20:59 PM Chest X-Ray 10/31/23 19:21 XR chest 1V portable CLINICAL HISTORY: weakness TECHNIQUE: Single frontal radiograph of the chest was obtained. Comparison: Comparison is made to chest radiograph 10/28/2023 FINDINGS: No lines and tubes are seen. Calcified aortic knob is seen. Lungs are underinflated but clear. No evidence of pleural effusion or pneumothorax. IMPRESSION: No acute chest disease. ACT 112: Negative or not required by law. Electronically signed by: Wander Estevez M.D. 10/31/2023 8:13 PM ECG Additional Comments: ECG SVT at rate of 144. ST and T wave abnormality in anterolateral leads QTc 535 530 5 repeat ECG. Normal sinus rhythm rate of 79. T wave abnormalities in anterolateral leads. QTc 554. Code Status & VTE Plan VTE Prophylaxis Plan VTE Prophylaxis will be ordered: Yes
[2023-10-31] MEDS: POTASSIUM CHLORIDE CRTAB 20 MEQ TABCR PO STA (23:50)
[2023-10-31] MEDS ORDERED: NITROGLYCERIN SL 0.4 MG/TAB TAB SL PRN (23:51)
[2023-11-01] MEDS: POTASSIUM CHLORIDE / WTR 10 MEQ/100 ML PLCT IV ONE (01:01)
[2023-11-01] MEDS: ACETAMINOPHEN 325 MG TAB PO PRN (02:58)
[2023-11-01 05:06] LABS: Hematocrit (blood only) 36.5 % (37.0-47.0); Hemoglobin 11.9 g/dl (12.0-16.0); Mean Corpuscular Hemoglobin 29.8 pg (25.0-34.0); Mean Corpuscular Hgb Conc 32.6 g/dL (32.0-36.0); Mean Corpuscular Volume 91.5 fL (80.0-100.0); Mean Platelet Volume 9.6 fL (9.4-12.4); Platelet Count 262 K/uL (130-400); RDW Coefficient of Variation 13.1 % (11.5-14.5); RDW Standard Deviation 43.9 fL (36.4-46.3); Red Blood Count 3.99 M/uL (4.20-5.40); White Blood Count 8.17 K/ul (4.8-10.8)
[2023-11-01 05:10] LABS: BUN Creatinine Ratio 18.3 (10-20); Calcium 7.9 mg/dl (8.6-10.3); Creatinine Clr Calc Pharmacy 43.6 ml/min; Est GFR (African American) 77.2 ml/min; Est GFR (Non-African American) 66.6 ml/min; Magnesium 1.9 mg/dl (1.7-2.4)
[2023-11-01] MEDS ORDERED: VANCOMYCIN CONSULT ACTIVE PRN (05:19)
[2023-11-01 05:22] LABS: Troponin I High Sensitivity 70.2 pg/ml (0-14)
[2023-11-01] MEDS: PIPERACILLIN/TAZOBACTAM 4.5 GM/100 ML BAG IV STA (05:25)
[2023-11-01] MEDS: SODIUM CHLORIDE 0.9% 1,000 ML IV SCH (05:27)
[2023-11-01] MEDS ORDERED: SODIUM CHLORIDE 0.9% 500 ML IV SCH (05:30)
[2023-11-01] MEDS: SODIUM CHLORIDE 0.9% 250 ML IV SCH (05:39)
[2023-11-01] MEDS: VANCOMYCIN HCL 1,000 MG in SODIUM CHLORIDE 0.9% 250 ML IV STA (06:03)
[2023-11-01 06:17] LABS: Basophils # (auto) 0.02 K/uL (0.00-0.20); Basophils % (auto) 0.2 %; Immature Granulocytes # (auto) 0.02 K/uL (0.01-0.20); Immature Granulocytes % (auto) 0.2 %; Lymphocytes # (auto) 0.29 K/uL (1.20-3.40); Lymphocytes % (auto) 3.5 %; Monocytes # (auto) 0.09 K/uL (0.11-0.59); Monocytes % (auto) 1.1 %; Neutrophils # (auto) 7.75 K/uL (1.40-6.50)
--- NOTE | 2023-11-01 08:27 | Cardiology Consultation ---
Date of Consultation November 01, 2023 Assessment & Plan (1) Atrial tachycardia: (2) Paroxysmal atrial fibrillation: (3) Systolic and diastolic CHF, chronic: (4) Elevated troponin: (5) Diffuse abdominal pain: (6) Hypokalemia: (7) Hypomagnesemia: (8) Moderate aortic regurgitation: (9) Hypocalcemia: Plan Impression/Plan: 1. Atrial Tachycardia 2. Paroxysmal AFIB 3. Systolic/Diastolic Heart Failure 4. Moderate AI 5. CAD s/p CLAUDE x1 mid-LAD 10/26/23 6. Abdominal Pain 7.Electrolyte Imbalance 8. Elevated Troponin 10/31/2023: -Telemetry reviewed. She is currently in NSR in the 90s. Will start Amiodarone 200 mg daily to help prevent reoccurrence of PAT/AFIB. TSH/LFTs are WNL. -No oral AC due to history of multiple falls and high bleeding risk. Continue DAPT. -She has early signs of Tachy-bob syndrome. Hx bradycardia with higher doses of Metoprolol. Plan to continue Metoprolol Succinate 25 mg BID. -Troponin elevated secondary to demand ischemia. Denies chest pain. -Keep Mag > 2.0 and K > 4.0. Will give an additional 1 gm IV Magnesium Sulfate. -Fortunately patient is not volume overloaded on exam. Continue Losartan 12.5 mg daily and Lasix 40 mg daily Case discussed with Dr. Hayes I spent a total of 55 minutes on the date of service in preparation, delivery, and documentation of the care provided to this patient, excluding any time spent in the performance of separately billed services. MATTHEW Hugo Department of Cardiology, [facility] This chart was completed in part utilizing Speech Voice Recognition Software. Grammatical errors, random word insertions, pronoun errors, and incomplete sentences are an occasional consequence of this system due to software limitations, ambient noise, and hardware issues. Any formal questions or concerns about the content, text, or information contained within the body of this dictation should be directly addressed to the provider for clarification. Supervising Physician Co-Signing Physician Notes Attending attestation: Case reviewed with the advanced practitioner. I have personally performed a history and physical examination on the patient. I have reviewed the advanced practitioner's documentation on the date of service referenced in note, and I agree with, and take responsibility for the plan of care. Subjective: Patient without complaint during my assessment in the first floor ICU (where she is admitted as a telemetry overflow patient) at just after 2 PM on 11/01/2023. As noted last time, patient is somewhat of a poor historian with hearing deficit and some degree of cognitive impairment. Exam: Cardiovascular: Regular rhythm, 1/6 systolic murmur, no edema Data: Echocardiogram performed 10/23/2023 revealed severe hypokinesis of the mid and apical septum, inferior bolden, LVEF 40 to 44%. EKG performed at 10/31/2023 at 1924 revealed supraventricular tachycardia 144 bpm with T wave inversions in the anterior leads. Repeat tracing 10/31/20231948 revealed sinus rhythm at 79 bpm with T wave inversions in leads V2 V3 and I and aVL corrected QT interval. T wave changes are relatively unchanged compared to the 10/27/23 tracing performed post PCI to the LAD. Impression/ Plan: Continue aspirin and clopidogrel. As noted at previous admission, due to neuropathy, gait instability, fall risk, patient not a candidate for anticoagulation with regards to her paroxysmal atrial fibrillation. To tachycardia noted on presentation last evening appears to be an atrial tachycardia versus an atypical atrial flutter. Similar tachycardia was noted on her previous hospital stay, and she has a history of frequent narrow complex tachycardia episodes noted on previous Zio patch monitor. At present recommend ongoing treatment with metoprolol succinate 25 mg twice daily. Will add amiodarone 200 mg p.o. daily. Although the corrected QT interval is measuring as being just over 500 ms, this is related to the T wave inversions observed post PCI to the LAD, and I do not think the patient has an acquired or acute congenital long QT syndrome. Given her profound symptoms while tachycardic, benefits of amiodarone without fail with the risk at present, and initiation will occur on telemetry. Repeat EKG in am. With regards to amiodarone use, TSH within normal is, liver function test within normal limits. Hypokalemia an hypomagnesemia noted on presentation has been replaced. I spent a total of 25 minutes coordinating, documenting, and providing care for this patient excluding time spent in the performance of separately billed services or time spent by another provider. Randy Hayes DO History of Present Illness Reason for Consultation: Atrial Tachycardia Requesting Physician: Jayson Shah MD Attending Physician: Dr. Hayes History of Present Illness Florencia Rivera is an 82-year-old female seen in cardiology consultation per the request of Dr. Hale for the evaluation of atrial tachycardia. She was recently hospitalized on 10/13/23 with Pseudomonas aeruginosa bacteriemia due to complicated UTI with sepsis, cardiovascular findings consistent with possible Takotsubo versus coronary heart disease, EF recovered prior to discharge, then re-admitted 10/23/23 for acute Systolic heart failure, flash pulmonary edema pattern. She underwent cardiac catheterization and stent to the mid LAD on 10/26/2023 and was disharged again on 10/29/23. Patient returned to [facility] on 10/30 with abdominal pain and increased confusion. CT was suggestive of ileus. KUB favors mild ileus. In the ED she was also had atrial tachycardia with rates in the 140s. Treated with IV Lopressor With subsequent resolution of the tachycardia. Allergies Allergy/AdvReac Type Severity Reaction Status Date / Time No Known Allergies Allergy Verified 10/31/23 20:23 Home Medications Medication Instructions Recorded Confirmed Type multivitamin 1 tab PO QAM 05/03/18 10/31/23 History omeprazole 20 mg tablet,delayed 20 mg PO BID 05/03/18 10/31/23 History release dorzolamide 22.3 mg-timolol 6.8 1 drp OPB HS 06/01/18 10/31/23 History mg/mL eye drops (Cosopt) duloxetine 60 mg capsule,delayed 60 mg PO DAILY 06/01/18 10/31/23 History release (Cymbalta) latanoprost 0.005 % eye drops 1 drp OPB AMHS 06/01/18 10/31/23 History (Xalatan) aspirin 81 mg tablet,delayed 81 mg PO QAM 06/24/20 10/31/23 History release (Ed Low Dose Aspirin) calcitriol 0.5 mcg capsule 1 mcg PO QAM 09/25/23 10/31/23 History rosuvastatin 10 mg tablet 10 mg PO HS 09/25/23 10/31/23 History tamsulosin 0.4 mg capsule (Flomax) 0.4 mg PO DAILY kidney stone #30 10/07/23 10/31/23 Rx caps latanoprostene bunod 0.024 % eye 1 drp OPB HS 10/13/23 10/31/23 History drops (Vyzulta) losartan 25 mg tablet 12.5 mg (1/2 x 25 mg) PO QAM 30 10/22/23 10/31/23 Rx days #15 tabs metoprolol succinate 25 mg 25 mg PO BID 30 days #60 tabs 10/22/23 10/31/23 Rx tablet,extended release 24 hr phenazopyridine 100 mg tablet 100 mg PO TID 10/23/23 10/31/23 History clopidogrel 75 mg tablet 75 mg PO QAM #30 tabs 10/29/23 10/31/23 Rx furosemide 40 mg tablet 40 mg PO QAM #30 tabs 10/29/23 10/31/23 Rx Patient History Medical History Nephrolithiasis History of hydronephrosis Closed fracture of distal end of right fibula Glaucoma Bilateral tinnitus Chronic pain both feet and legs Neuropathy BOTH FEET AND LEGS Hyperlipidemia H/O parathyroidectomy Surgical History Hx of bilateral cataract extraction Hx of cholecystectomy History of back surgery lower Family History Other Cancer Social History Smoking Status: Never smoker Tobacco Type: Cigarettes Second Hand Exposure: No; Do You Dip or Chew Tobacco: No; Tobacco Cessation Education Requested by Patient: No Hx Alcohol Use: No Hx Substance Use: No Preferred Language: Cymraes Communication Ability: Effective Visual Impairment: No Limitations Hearing Ability: Normal Vessel Liner Required: No Beliefs That Will Affect Care: None marital status: / Current Living Situation: Family Current Living Situation Comment: lives with daughter How many Children do You have: 2 Other Information That Helps Us Care for You: No Feels Safe at Home: Yes Safety Concerns: Feels Safe At This Time Assistive Devices: Walker Review of Systems Review of Systems: All systems reviewed & are unremarkable except as noted in HPI & below Physical Exam Constitutional: WD/WN, vitals as above no acute distress VENETIE Respiratory: normal respiratory effort, lungs clear to auscultation normal respiratory effort; no respiratory distress Auscultation: lungs clear to auscultation bilaterally Cardiovascular: RRR, no murmur, no edema Rate/Rhythm: regular rate and regular rhythm Extremities: no edema Gastrointestinal (Abdomen): Inspection/Auscultation: abdomen normal to inspection and normal bowel sounds Percussion/Palpation: abdomen soft; abdomen nontender Neurologic: awake and + confused Results & Data Vital Signs (Past 12 Hours) Vital Signs Temp Pulse Pulse Resp BP Pulse Ox Pulse Ox 11/01/23 07:14 78 11/01/23 05:40 37.1 C 92 H 20 123/55 L 93 11/01/23 04:44 38.5 C H 103 H 18 123/61 93 11/01/23 03:54 38.0 C H 109 H 18 136/61 92 11/01/23 00:30 36.9 C 11/01/23 00:00 73 18 147/60 H 91 11/01/23 00:00 93 10/31/23 23:30 85 20 105/71 93 10/31/23 23:16 61 10/31/23 21:31 116/53 L 10/31/23 21:29 68 21 90 10/31/23 21:04 74 10/31/23 21:00 109/53 L 10/31/23 20:44 97 H 22 116/52 L 91 O2 Del Method O2 Del Method O2 Flow Rate 11/01/23 07:14 11/01/23 05:40 Nasal Cannula 2 11/01/23 04:44 Nasal Cannula 2 11/01/23 03:54 Nasal Cannula 2 11/01/23 00:30 11/01/23 00:00 Room Air 11/01/23 00:00 Room Air 10/31/23 23:30 Room Air 10/31/23 23:16 10/31/23 21:31 10/31/23 21:29 Room Air 10/31/23 21:04 10/31/23 21:00 10/31/23 20:44 Room Air Laboratory Results Cardiac Enzymes 10/31/23 10/31/23 11/01/23 Range/Units 19:32 21:17 04:31 AST 15 (13-39) U/L Troponin I High Sens 51.5 H* 50.8 H* 70.2 H* D (0-14) pg/ml Coagulation 10/31/23 Range/Units 19:32 PT 12.1 H (9.0-12.0) Seconds APTT 28 (21-31) Seconds CBC 10/31/23 11/01/23 Range/Units 19:32 04:31 WBC 8.41 8.17 (4.8-10.8) K/ul RBC 4.24 3.99 L (4.20-5.40) M/uL Hgb 12.6 11.9 L (12.0-16.0) g/dl Hct 39.0 36.5 L (37.0-47.0) % Plt Count 286 262 (130-400) K/uL Neut # (Auto) 6.40 7.75 H (1.40-6.50) K/uL Lymph # (Auto) 1.26 0.29 L (1.20-3.40) K/uL [place] # (Auto) 0.65 H 0.09 L (0.11-0.59) K/uL Eos # (Auto) 0.02 0.00 (0.00-0.50) K/uL Baso # (Auto) 0.03 0.02 (0.00-0.20) K/uL Comprehensive Metabolic Panel 10/31/23 11/01/23 Range/Units 19:32 04:31 Sodium 138 137 (136-145) mmol/L Potassium 3.1 L 4.0 D (3.5-5.1) mmol/L Chloride 98 101 (98-107) mmol/L Carbon Dioxide 26 25 (21-32) mmol/L BUN 15 15 (6-23) mg/dl Creatinine 0.83 0.82 (0.6-1.2) mg/dl Glucose 134 H 155 H (70-99(Fasting)) mg/dl Calcium 8.5 L 7.9 L (8.6-10.3) mg/dl AST 15 (13-39) U/L ALT 14 (7-52) U/L Alkaline Phosphatase 56 (34-104) U/L Total Protein 7.3 (6.0-8.3) gm/dl Albumin 3.7 (3.4-5.0) gm/dl Intake and Output 10/31/23 11/01/23 11/01/23 22:59 06:59 14:59 Intake Total 400 / 850 450 / 850 270 / 270 Balance 400 / 850 450 / 850 270 / 270 Intake: IV 400 / 850 450 / 850 270 / 270 Acetaminophen 1,000 mg In 100 100 / 100 ml @ 400 mls/hr IV NOW STA Rx#: [id number] Magnesium Sulfate / D5w 1 gm In 200 / 200 100 ml @ 100 mls/hr IV Q1H [facility] Rx#:[id number] Piperacillin/Tazobactam 4.5 gm 100 / 100 In 100 ml @ 200 mls/hr IV NOW STA Rx#:[id number] Potassium Chloride / Wtr 10 meq 100 / 200 100 / 200 In 100 ml @ 100 mls/hr IV ONE ONE Rx#:[id number] Sodium Chloride 0.9% 250 ml @ 250 / 250 250 mls/hr IV .Q1H [facility] Rx#: [id number] Vancomycin HCl 1,000 mg In 270 / 270 Sodium Chloride 0.9% 250 ml @ 200 mls/hr IV NOW STA Rx#: [id number] Other: Weight 52.2 kg Weight Measurement Method Built in [facility] Diagnostic Findings Echo 10/23/2023 The patient was in atrial tachycardia on the onset of study which converted him to sinus rhythm during imaging. Left ventricle is normal size. There is moderate concentric left ventricular hypertrophy. There is severe hypokinesis of the mid and apical septum, inferior bolden. Left ventricular ejection fraction = 40-45% The aortic valve leaflets are moderately calcified. No hemodynamically significant valvular aortic stenosis. Moderate aortic regurgitation. In comparison to prior study of 10/19/2023 LV function is once again reduced. Cardiac Cath 10/23/2023 [facility] Single-vessel coronary artery disease. 60-70% earlymid LAD (IFR 0.82) Normal intracardiac filling pressure. Successful PCI of earlymid LAD with single drug-eluting stent (3.0 x 15 mm Wesley; postdilated with 3.5 NC) Echo 10/19/2023 The left ventricle is normal in size. There is moderate concentric left ventricular hypertrophy. There is mild hypokinesis of the mid and apical septum with all other wall segments grisel normally. Left ventricular ejection fraction 50-55%. Aortic valve leaflets are moderately calcified with moderate or slightly greater aortic insufficiency. In comparison to prior study of 10/15/2023 there has been substantial improvement in wall motion abnormalities and LV systolic function. Echo 10/16/2023 The ventricular systolic function is severely reduced. Left ventricular ejection fraction 30-35%. There is a large wall motion abnormality involving the mid and apical LV with hypokinesis to akinesis of the segments. Sparing of the basal segments. Findings suggest multivessel ischemic heart disease versus stress-induced cardiomyopathy. Moderatesevere aortic regurgitation. Suboptimally visualized valvular abnormality without evidence of vegetation within the limitations of this imaging modality. Zio Patch 09/30/2022 Pt was on metoprolol 12.5mg BID Patient had a min HR of 31 bpm, max HR of 190 bpm, and avg HR of 93 bpm. Predominant underlying rhythm was Sinus Rhythm. 1298 Supraventricular Tachycardia runs occurred, the run with the fastest interval lasting 3 hours 59 mins with a max rate of 190 bpm (avg 127 bpm); the run with the fastest interval was also the longest. Some episodes of Supraventricular Tachycardia may be possible Atrial Tachycardia with variable block. . I solated SVEs were occasional (2.8%, 16377), SVE Couplets were occasional (1.3%, 27297), and SVE Triplets were occasional (1.5%, 9273). Isolated VEs were rare (<1.0%), VE Couplets were rare (<1.0%), and no VE Triplets were present. No patient marker or diary entries were recorded Impression: Sinus rhythm, average rate 85 beats per minute with paroxysmal atrial tachycardia episodes, multiple with rapid response. No symptoms recorded. Atrial fibrillation not observed
--- NOTE | 2023-11-01 08:48 | XRay Report ---
KUB HISTORY: ileus COMPARISON: Abdomen and pelvis CT 10/31/2023. KUB 10/16/2023. FINDINGS: The bowel gas pattern is unremarkable. There are no dilated loops of small bowel to suggest an obstruction. No renal calculi. No ureteral calculi. No pneumoperitoneum or pneumatosis. A left u reteral stent appears in good position. Levoscoliosis and degenerative changes within the lumbar spin e. Mild gaseous distention of the colon persists. IMPRESSION: 1. No change in the mild gaseous distention of the colon. This favors a mild ileus. 2. A left ureteral stent appears in good position. ACT 112: Negative or not required by law. Electronically signed by: Dakota Cueva M.D. 11/01/2023 8:47 AM
[2023-11-01] MEDS: ASPIRIN 81 MG ECTAB PO SCH (09:19)
[2023-11-01] MEDS: CLOPIDOGREL BISULFATE 75 MG TAB PO SCH (09:20)
[2023-11-01] MEDS: DULoxetine HCL 60 MG CAP PO SCH (09:20)
[2023-11-01] MEDS: CALCITRIOL 0.25 MCG CAPSULE PO SCH (09:20)
[2023-11-01] MEDS: MULTIVITAMIN TAB PO SCH (09:24)
[2023-11-01] MEDS: TAMSULOSIN HCL 0.4 MG CAP PO SCH (09:24)
[2023-11-01] MEDS: PANTOprazole 40 MG TAB PO SCH (09:24)
[2023-11-01] MEDS: FUROSEMIDE 40 MG TAB PO SCH (09:54)
[2023-11-01] MEDS: METOPROLOL SUCC 25MG EXT REL TAB PO SCH (09:54)
[2023-11-01] MEDS: LOSARTAN POTASSIUM 25 MG TAB PO SCH (10:01)
[2023-11-01] MEDS: HEPARIN SOD 5,000 UNIT/0.5 ML VIAL SQ SCH (10:08)
[2023-11-01] MEDS: LATANOPROST 0.005% OP SOLN 2.5 ML BTL OPB SCH (10:09)
[2023-11-01] MEDS: PIPERACILLIN/TAZOBACTAM 4.5 GM in DEXTROSE 5% MINI-B 100 ML IV SCH (10:10)
[2023-11-01] MEDS: AMIODARONE 200 MG TAB PO SCH (10:58)
[2023-11-01] MEDS: MAGNESIUM SULFATE / D5W 1 GM/100 ML BAG IV ONE (12:52)
--- NOTE | 2023-11-01 13:18 | Urology Consultation ---
Date of Consultation November 01, 2023 Assessment & Plan (1) Hydronephrosis: (2) Bladder mass: (3) Acute UTI: (4) Elevated troponin: (5) Somnolence: (6) Severe sepsis: (7) Demand ischemia: (8) Status post insertion of drug-eluting stent into left anterior descending (LAD) artery: (9) Confusion: Plan Patient with acute illness. Had stent placed in September. Had previously followed with Dr. Tiwari. Patient acutely ill. Imaging was reviewed interpreted by myself. Does appear to have air within the bladder. Possible air in the left kidney possibly extending from the bladder. Found to have concerns related to cardiac issues. Is being seen by cardiology. Patient's labs were all reviewed white count currently 8.17. Creatinine 0.82. Hemoglobin 11.9. Please see full results and plan or HPI section for pertinent values. Vitals currently stable with mild hypotension. Most recent blood pressure 95/52. Is satting 98% on 2 L nasal cannula. Afebrile with current temp 36.8. Nontachycardic with pulse of 61. Patient's complicated medical and surgical history was reviewed and summarized above. Plan for supportive care. Would recommend maximum drainage with utilization of catheter. Would continue to monitor. Blood cultures are pending. Urine cultures are pending. Patient still tired but dealing with much less confusion and significant issues. Issues did appear to start suddenly. Spoke with the hospitalist team. Will place catheter for short period time to see if this improves drainage and allows drainage of debris and possible air from the bladder. Will plan to continue to monitor History of Present Illness Attending Physician: Jayson Shah MD History of Present Illness New consultation for patient with UTI/Pyelo, discomfort, and ill feelings. Patient with worsening confusion and bother. Patient had stent placed in September. Underwent CT imaging in the ER found to have air within the bladder possibly area in the kidney. Patient had onset of pain into flank going down and radiating into groin and back in waves comes and goes. No major severe episodes. Patient dealing with worsening ill feelings. Found to have cardiac related issues as well as being seen by cardiology. Discussed and reviewed patient's family history for any history of issues, infections, and disease. Also, discussed patient's medical/surgery history especially related to any history of urinary issues or stone disease. Patient was admitted and is undergoing observation with broad spectrum IV antibiotics. Allergies Allergy/AdvReac Type Severity Reaction Status Date / Time No Known Allergies Allergy Verified 10/31/23 20:23 Home Medications Medication Instructions Recorded Confirmed Type multivitamin 1 tab PO QAM 05/03/18 10/31/23 History omeprazole 20 mg tablet,delayed 20 mg PO BID 05/03/18 10/31/23 History release dorzolamide 22.3 mg-timolol 6.8 1 drp OPB HS 06/01/18 10/31/23 History mg/mL eye drops (Cosopt) duloxetine 60 mg capsule,delayed 60 mg PO DAILY 06/01/18 10/31/23 History release (Cymbalta) latanoprost 0.005 % eye drops 1 drp OPB [facility] 06/01/18 10/31/23 History (Xalatan) aspirin 81 mg tablet,delayed 81 mg PO QAM 06/24/20 10/31/23 History release (Ed Low Dose Aspirin) calcitriol 0.5 mcg capsule 1 mcg PO QAM 09/25/23 10/31/23 History rosuvastatin 10 mg tablet 10 mg PO HS 09/25/23 10/31/23 History tamsulosin 0.4 mg capsule (Flomax) 0.4 mg PO DAILY kidney stone #30 10/07/23 10/31/23 Rx caps latanoprostene bunod 0.024 % eye 1 drp OPB HS 10/13/23 10/31/23 History drops (Vyzulta) losartan 25 mg tablet 12.5 mg (1/2 x 25 mg) PO QAM 30 10/22/23 10/31/23 Rx days #15 tabs metoprolol succinate 25 mg 25 mg PO BID 30 days #60 tabs 10/22/23 10/31/23 Rx tablet,extended release 24 hr phenazopyridine 100 mg tablet 100 mg PO TID 10/23/23 10/31/23 History clopidogrel 75 mg tablet 75 mg PO QAM #30 tabs 10/29/23 10/31/23 Rx furosemide 40 mg tablet 40 mg PO QAM #30 tabs 10/29/23 10/31/23 Rx Patient History Medical History Nephrolithiasis History of hydronephrosis Closed fracture of distal end of right fibula Glaucoma Bilateral tinnitus Chronic pain both feet and legs Neuropathy BOTH FEET AND LEGS Hyperlipidemia H/O parathyroidectomy Surgical History Hx of bilateral cataract extraction Hx of cholecystectomy History of back surgery lower Family History Other Cancer Social History Smoking Status: Never smoker Tobacco Type: Cigarettes Second Hand Exposure: No; Do You Dip or Chew Tobacco: No; Tobacco Cessation Education Requested by Patient: No Hx Alcohol Use: No Hx Substance Use: No Preferred Language: Lao Communication Ability: Effective Visual Impairment: No Limitations Hearing Ability: Normal 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 Lethargic. Advanced age HEENT: Normocephalic Atraumatic. Inspection normal. Cranial Nerves 2-12 Grossly intact. Nares are clear. Neck is supple. Normal inspection of face. Normal inspection of neck. Neurologic: No deficits on inspection. Baseline for motor function and sensory. Psychologic: Normal affect. Respiratory: Nonlabored. No use of accessory muscles. No tachypnea or dyspnea. Cardiovascular: No tachycardia Skin: [place] and Dry. No rashes or visible lesions. Extremities: Moving without issues. No motor deficits on inspection Lymphatics: Mild edema Abdomen: Soft Non-distended. No rebound or guarding. Results & Data Vital Signs (Past 12 Hours) Vital Signs Temp Pulse Pulse Resp BP Pulse Ox O2 Del Method 11/01/23 12:40 36.8 C 61 14 95/52 L 98 Nasal Cannula 11/01/23 12:30 Nasal Cannula 11/01/23 10:47 75 18 108/57 L 97 Nasal Cannula 11/01/23 09:00 88 19 94/52 L 95 Nasal Cannula 11/01/23 07:14 78 11/01/23 05:40 37.1 C 92 H 20 123/55 L 93 Nasal Cannula 11/01/23 04:44 38.5 C H 103 H 18 123/61 93 Nasal Cannula 11/01/23 03:54 38.0 C H 109 H 18 136/61 92 Nasal Cannula O2 Flow Rate 11/01/23 12:40 2 11/01/23 12:30 2 11/01/23 10:47 2 11/01/23 09:00 2 11/01/23 07:14 11/01/23 05:40 2 11/01/23 04:44 2 11/01/23 03:54 2 PG Care Time/CCT Total # of Minutes Spent Total Time Spent with Patient: Total time spent is greater than 50% in coordination of care (as documented) at patient's floor/unit and/or counseling patient: Coding Level of Care Code 00948 INT INP/OBS CARE 375MIN Diagnoses Hydronephrosis with urinary obstruction due to ureteral calculus N13.2 Hydronephrosis type: with ureteral calculous obstruction Bladder mass N32.89 Acute UTI N39.0 Elevated troponin R79.89 Somnolence R40.0 Severe sepsis A41.9; R65.20 Demand ischemia I24.89 Status post insertion of drug-eluting stent into left anterior descending (LAD) artery Z95.5 Confusion R41.0 (1) Hydronephrosis Hydronephrosis type: with ureteral calculous obstruction Qualified Code(s): N13.2 - Hydronephrosis with renal and ureteral calculous obstruction
--- NOTE | 2023-11-01 13:51 | Hospitalist Progress Note ---
Date of Service November 01, 2023 Assessment & Plan (1) Complicated UTI (urinary tract infection): Plan: 82-year-old female with past medical history significant for dyslipidemia, surgical hypoparathyroidism, prediabetes, peripheral artery disease, paroxysmal atrial tachycardia, tachybradycardia syndrome, hypertension, moderate aortic regurgitation, first-degree AV block, GERD, CKD stage III, classical migraines, sensorineural hearing loss both ears, polyneuropathy, open-angle glaucoma, presents with abdominal pain and also found to have atrial tachycardia with heart rates in 140s which improved after 1 dose of IV Lopressor. Patient states she drank iced tea today. Around 2 PM she developed abdominal pain. All over the abdomen 8/10 in severity. No nausea. Normal bowel movement in the afternoon. Because of abdominal pain she came to the ER. Currently abdominal pain resolved. She stated she is passing a lot of gas. CAT scan showing possible ileus. UA is pending. Denies any fevers. Denies any burning micturition. Denies any hematuria. Denies any chest pain or shortness of breath. No cough. No headache. Vision is okay , no runny nose or sore throat. Currently resting comfortably and hemodynamics are okay. Patient was recently in the hospital and discharged on 10/29/23 for acute on chronic combined systolic and diastolic CHF and also had atrial tachycardia and paroxysmal atrial fibrillation .During that admission also had cardiac cath with drug-eluting stent to the LAD .Also tachybradycardia syndrome with bradycardia possibly on higher dose of metoprolol and because risk of fall anticoagulation with Eliquis was not started and she is on currently on aspirin and Plavix. Patient was also admitted in the early October with complicated UTI with Pseudomonas bacteremia treated with antibiotics.Patient also had severe sepsis and acute UTI in and was s/p left ureteral stent placement on 09/25/2023 by urology and also found to have bladder mass at the time. Plan for definitive stone surgery and TURBT scheduled for 11/09. Presented with diffuse abdominal pain CT showed intact ureteral tube with distended gas-filled colon suggestive of ileus, no diverticulitis History of Pseudomonas bacteremia and UTI and Enterococcus faecalis UTI on second of this month Urine culture is growing gram-negative bacilli this time Started with intravenous Zosyn and vancomycin-vancomycin was discontinued Awaiting further identification Appreciate urology input and recommendation Clinically little better without any more abdominal pain (2) Ureteral stent present: Plan: History of kidney stone And bladder mass On Flomax Plan for definitive stone surgery and TURBT on 11/09 (3) Diffuse abdominal pain: (4) Paroxysmal atrial fibrillation: Plan: Noted to have atrial tachycardia/A-fib with a rate of 144 Started with oral amiodarone Later on reverted to sinus rhythm Denies any cardiac symptoms Appreciate cardiology input and recommendation Will continue current management (5) Systolic and diastolic CHF, chronic: Plan: Recent hospitalization with acute on chronic combined systolic and diastolic heart failure No evidence of fluid overload and or acute CHF during this admission Will continue with the Lasix (6) Status post insertion of drug-eluting stent into left anterior descending (LAD) artery: Plan: Elevated troponin due to a stress Free from any cardiac symptoms Will continue aspirin and Plavix (7) Diabetes mellitus type 2, uncomplicated: Plan: Continue sliding scale insulin coverage Plan Hypertension on metoprolol succinate, losartan and diuretics we will monitor Blood pressure remains on the lower side Hyperlipidemia on statin DVT prophylaxis heparin subcu disposition telemetry full code. Admission and Anticipated Discharge Date Admission Date: October 31, 2023 Subjective 11/01/2023 The patient was seen and examined in ICU She was admitted with abdominal pain which is resolved now Noted to have A-fib with RVR and seems to be in sinus rhythm now Has been feeling much better since admission Remains weak and lethargic Review of Systems Review of Systems: All systems reviewed and are unremarkable except as noted below Physical Exam Physical Exam: Lying in bed without any acute distress Constitutional: + ill appearing and average body habitus Eyes: PERRL, conjunctivae normal, anicteric sclerae ENMT: external ear and nose normal, oropharynx normal Neck: trachea midline, no thyromegaly Respiratory: no respiratory distress Auscultation: + diminished lung sounds and + crackles (Minimal crackles at the bases) Cardiovascular: Rate/Rhythm: regular rate and regular rhythm; not tachycardic Heart Sounds: normal S1 and normal S2; no murmur Extremities: no edema Gastrointestinal (Abdomen): Inspection/Auscultation: normal bowel sounds; abdomen not distended Percussion/Palpation: abdomen soft; abdomen nontender Musculoskeletal: No acute arthritis involving any of the joints Neurologic: normal touch/pain/proprioception and moves all extremities; no focal motor deficits Psychiatric: A+Ox3, euthymic affect Lymphatic: no cervical or axillary lymphadenopathy Results & Data Results & Data Vital Signs (Past 12 Hours) Vital Signs Temp Pulse Pulse Resp BP Pulse Ox O2 Del Method 11/01/23 12:40 36.8 C 61 14 95/52 L 98 Nasal Cannula 11/01/23 12:30 Nasal Cannula 11/01/23 10:47 75 18 108/57 L 97 Nasal Cannula 11/01/23 09:00 88 19 94/52 L 95 Nasal Cannula 11/01/23 07:14 78 11/01/23 05:40 37.1 C 92 H 20 123/55 L 93 Nasal Cannula 11/01/23 04:44 38.5 C H 103 H 18 123/61 93 Nasal Cannula 11/01/23 03:54 38.0 C H 109 H 18 136/61 92 Nasal Cannula O2 Flow Rate 11/01/23 12:40 2 11/01/23 12:30 2 11/01/23 10:47 2 11/01/23 09:00 2 11/01/23 07:14 11/01/23 05:40 2 11/01/23 04:44 2 11/01/23 03:54 2 Laboratory Results Short CBC 10/31/23 11/01/23 Range/Units 19:32 04:31 WBC 8.41 8.17 (4.8-10.8) K/ul Hgb 12.6 11.9 L (12.0-16.0) g/dl Hct 39.0 36.5 L (37.0-47.0) % Plt Count 286 262 (130-400) K/uL BMP 10/31/23 11/01/23 19:32 04:31 Sodium 138 137 Potassium 3.1 L 4.0 D Chloride 98 101 Carbon Dioxide 26 25 BUN 15 15 Creatinine 0.83 0.82 Glucose 134 H 155 H Calcium 8.5 L 7.9 L Liver Function 10/31/23 Range/Units 19:32 Total Bilirubin 0.7 (0.2-1.0) mg/dl AST 15 (13-39) U/L ALT 14 (7-52) U/L Alkaline Phosphatase 56 (34-104) U/L Albumin 3.7 (3.4-5.0) gm/dl Urine 10/31/23 Range/Units 22:51 Urine Color See Comment Urine Appearance Clear (Clear) Urine pH Not Reportable Ur Specific [place] 1.010 (1.000-1.030) Urine Protein Not Reportable Urine Glucose (UA) Not Reportable Medications Administered Current Inpatient Medications Acetaminophen (Acetaminophen 325 Mg Tab) 650 mg PO Q4H PRN PRN Reason: Pain or Fever Stop: 11/30/23 23:50 Last Admin: 11/01/23 02:58 Dose: 650 mg Amiodarone HCl (Amiodarone 200 Mg Tab) [address] [facility] Stop: 12/01/23 09:59 Last Admin: 11/01/23 10:58 Dose: 200 mg Aspirin (Aspirin 81 Mg Ectab) [address] [facility] Stop: 12/01/23 08:59 Last Admin: 11/01/23 09:19 Dose: 81 mg Calcitriol (Calcitriol 0.25 Mcg Capsule) [address] [facility] Stop: 12/01/23 08:59 Last Admin: 11/01/23 09:20 Dose: 1 mcg Clopidogrel Bisulfate (Clopidogrel Bisulfate 75 Mg Tab) [address] [facility] Stop: 12/01/23 08:59 Last Admin: 11/01/23 09:20 Dose: 75 mg Dorzolamide/Timolol (Dorzolamide/Timolol 22.3/6.8mg/Ml 10 Ml Btl) 1 drops OPB HS [facility] Stop: 12/01/23 20:59 Duloxetine HCl (Duloxetine Hcl 60 Mg Cap) 60 mg PO DAILY [facility] Stop: 12/01/23 08:59 Last Admin: 11/01/23 09:20 Dose: 60 mg Furosemide (Furosemide 40 Mg Tab) [address] [facility] Stop: 12/01/23 08:59 Last Admin: 11/01/23 09:54 Dose: Not Given Heparin Sodium (Porcine) (Heparin Sod 5,000 Unit/0.5 Ml Vial) 5,000 units SQ Q12 [facility] Stop: 12/01/23 08:59 Last Admin: 11/01/23 10:08 Dose: 5,000 units Piperacillin Sod/Tazobactam (Sod 4.5 gm/ Dextrose) 100 mls @ 25 mls/hr IV Q8H [facility]; Protocol Stop: 11/11/23 09:59 Last Admin: 11/01/23 10:10 Dose: 25 mls/hr Sodium Chloride (Nss) 1,000 mls @ 75 mls/hr IV .[id number] [facility] Stop: 12/01/23 05:29 Last Admin: 11/01/23 05:27 Dose: 75 mls/hr Latanoprost (Latanoprost 0.005% Op Soln 2.5 Ml Btl) 1 drops OPB [facility] Stop: 12/01/23 08:59 Last Admin: 11/01/23 10:09 Dose: 1 drops Losartan Potassium (Losartan Potassium 25 Mg Tab) 12.5 mg PO QAM [facility] Stop: 12/01/23 08:59 Last Admin: 11/01/23 10:01 Dose: Not Given Metoprolol Succinate (Metoprolol Succ 25mg Ext Rel Tab) 25 mg PO BID [facility] Stop: 12/01/23 08:59 Last Admin: 11/01/23 10:09 Dose: 25 mg Miscellaneous (Vyzulta 0.024 % Drops - Order Awaiting Action) 1 each N/A QS [facility] Stop: 12/01/23 07:59 Multivitamins (Multivitamin Tab) 1 tab PO QAM [facility] Stop: 12/01/23 08:59 Last Admin: 11/01/23 09:24 Dose: 1 tab Nitroglycerin (Nitroglycerin Sl 0.4 Mg/Tab Tab) 0.4 mg SL Q5M PRN PRN Reason: Chest Pain Stop: 11/30/23 23:50 Pantoprazole Sodium (Pantoprazole 40 Mg Tab) 40 mg PO BID [facility] Stop: 12/01/23 08:59 Last Admin: 11/01/23 09:24 Dose: 40 mg Rosuvastatin Calcium (Rosuvastatin Calcium 10 Mg Tab) 10 mg PO HS [facility] Stop: 12/01/23 20:59 Tamsulosin HCl (Tamsulosin Hcl 0.4 Mg Cap) 0.4 mg PO DAILY [facility] Stop: 12/01/23 08:59 Last Admin: 11/01/23 09:24 Dose: 0.4 mg
[2023-11-01] MEDS: ROSUVASTATIN CALCIUM 10 MG TAB PO SCH (19:53)
[2023-11-01] MEDS: DORZOLAMIDE/TIMOLOL 22.3/6.8MG/ML 10 ML BTL OPB SCH (20:30)
[2023-11-02 06:19] LABS: Basophils # (auto) 0.03 K/uL (0.00-0.20); Basophils % (auto) 0.3 %; Eosinophils # (auto) 0.12 K/uL (0.00-0.50); Eosinophils % (auto) 1.4 %; Hematocrit (blood only) 30.4 % (37.0-47.0); Hemoglobin 9.5 g/dl (12.0-16.0); Immature Granulocytes # (auto) 0.03 K/uL (0.01-0.20); Immature Granulocytes % (auto) 0.3 %; Lymphocytes # (auto) 1.16 K/uL (1.20-3.40); Lymphocytes % (auto) 13.4 %; Mean Corpuscular Hemoglobin 29.8 pg (25.0-34.0); Mean Corpuscular Hgb Conc 31.3 g/dL (32.0-36.0); Mean Corpuscular Volume 95.3 fL (80.0-100.0); Mean Platelet Volume 9.9 fL (9.4-12.4); Monocytes % (auto) 5.8 %; Neutrophils # (auto) 6.82 K/uL (1.40-6.50); Neutrophils % (auto) 78.8 %; Platelet Count 214 K/uL (130-400); RDW Coefficient of Variation 13.4 % (11.5-14.5); RDW Standard Deviation 46.6 fL (36.4-46.3); Red Blood Count 3.19 M/uL (4.20-5.40); White Blood Count 8.66 K/ul (4.8-10.8)
[2023-11-02 06:47] LABS: BUN Creatinine Ratio 19.4 (10-20); Calcium 6.9 mg/dl (8.6-10.3); Creatinine Clr Calc Pharmacy 38.5 ml/min; Est GFR (African American) 58.6 ml/min; Est GFR (Non-African American) 50.6 ml/min; Magnesium 2.1 mg/dl (1.7-2.4); Phosphorus 4.6 mg/dl (2.5-4.9); Potassium 3.8 mmol/L (3.5-5.1)
--- NOTE | 2023-11-02 10:12 | Urology Progress Note ---
Date of Service November 02, 2023 Assessment & Plan (1) Hydronephrosis: (2) Bladder mass: (3) Acute UTI: Plan Patient underwent left ureteral stent placement 09/25/2023 -postprocedure she has been seen in the hospital with urology consults on 10/14/2023 in 11/01/2023 Patient presented back to the ER on 10/31/2023 for abdominal pain-CT showed possible ileus, gas in the bladder Urine culture grew Klebsiella pneumonia-patient currently on Zosyn Plan for definitive stone surgery and TURBT on 11/09-May adjust as needed pending hospital course Patient currently on Flomax with catheter in place for maximal drainage-continue to monitor Trend antibiotics per cultures Continue supportive care with medical management and hydration per primary team Urology will follow Admission and Anticipated Discharge Date Admission Date: October 31, 2023 Subjective Patient resting comfortably in bed Catheter draining pink-tinged urine appropriately Denies fevers, chills, nausea, vomiting, pain Denies any acute urological concerns Labs reviewed: 11/02/2023 Creatinine 1.03 WBCs 8.66 Hemoglobin 9.5 Urine culture on 10/31/2023 grew Klebsiella pneumoniae Preliminary blood cultures on 10/31/[address] on 10/31/2023 showed left-sided ureteral stent in place without hydronephrosis or ureterolithiasis. Possible gas in the bladder along with left kidney. KUB on 11/01/2023 shows no change in mild gaseous distention of the colon which favors a mild ileus, left ureteral stent appears in good position Review of Systems Constitutional: as per Subjective / HPI Genitourinary: as per Subjective / HPI Physical Exam Constitutional: well developed and well nourished; no acute distress Respiratory: normal respiratory effort and able to speak in complete sentences Musculoskeletal: Extremities: extremities normal to inspection Psychiatric: Orientation: alert and oriented x 3 Results & Data Vital Signs (Past 12 Hours) Vital Signs Temp Pulse Pulse Resp BP Pulse Ox O2 Del Method 11/02/23 07:44 66 18 112/56 L 97 Nasal Cannula 11/02/23 02:58 36.6 C 65 19 115/64 99 Nasal Cannula 11/02/23 00:30 58 L 11/01/23 23:41 Nasal Cannula 11/01/23 23:35 36.6 C 61 16 96/40 L 95 Nasal Cannula 11/01/23 22:26 59 L O2 Flow Rate 11/02/23 07:44 2 11/02/23 02:58 11/02/23 00:30 11/01/23 23:41 2 11/01/23 23:35 2 11/01/23 22:26 PG Care Time/CCT Total # of Minutes Spent Total Time Spent with Patient: Total time spent is greater than 50% in coordination of care (as documented) at patient's floor/unit and/or counseling patient: Coding Level of Care Code 75695 SUB INP/OBS CARE 2MIN Diagnoses Hydronephrosis with urinary obstruction due to ureteral calculus N13.2 Hydronephrosis type: with ureteral calculous obstruction Bladder mass N32.89 Acute UTI N39.0 (1) Hydronephrosis Hydronephrosis type: with ureteral calculous obstruction Qualified Code(s): N13.2 - Hydronephrosis with renal and ureteral calculous obstruction
--- NOTE | 2023-11-02 12:26 | Cardiology Progress Note ---
Date of Service November 02, 2023 Assessment & Plan (1) Atrial tachycardia: (2) Paroxysmal atrial fibrillation: (3) Status post insertion of drug-eluting stent into left anterior descending (LAD) artery: (4) Prolonged QT interval: (5) Hypokalemia: (6) Chronic heart failure with mildly reduced ejection fraction (HFmrEF, 41- 49%): (7) Acute UTI: Plan Atrial tachycardia recorded in setting of UTI,(+ Klebsiella), bladder mass, hydronephrosis, and fever. Drug-eluting stent implanted to the left anterior descending artery 10/26/2023. Discontinue amiodarone due to QT prolongation. Continue metoprolol succinate 25 mg twice daily. 20 mEq p.o. potassium chloride ordered. As previously documented, patient is not a candidate for long-term anticoagulation. Monitor telemetry during hospitalization. Continue aspirin, clopidogrel, rosuvastatin, and losartan. Patient appears euvolemic. Continue outpatient dose of furosemide, 40 mg daily. Admission and Anticipated Discharge Date Admission Date: October 31, 2023 Subjective 82-year-old female presenting to the emergency department 10/31/2023 due to abdominal discomfort, urinary tract infection, paroxysmal supraventricular tachycardia, likely atrial tachycardia. Poor historian with hearing deficit and some degree of cognitive impairment. Denies chest pain, shortness of breath, palpitations, lightheadedness, or dizziness. Remains in sinus rhythm on telemetry. No recurrent supraventricular tachycardia. Amiodarone initiated, however significant QT prolongation noted this a.m. Patient offers no complaints. Review of Systems Review of Systems: All systems reviewed & are unremarkable except as noted in Subjective Physical Exam Constitutional: well nourished; no acute distress Respiratory: no respiratory distress, no labored breathing and no retractions Auscultation: no crackles, no rales, no rhonchi and no wheezes Cardiovascular: Rate/Rhythm: regular rate and regular rhythm Heart Sounds: normal S1 and normal S2; no murmur Vessels: radial pulses present; no JVD and no carotid bruit Extremities: no edema Gastrointestinal (Abdomen): Inspection/Auscultation: abdomen not distended and + abnormal bowel sounds Percussion/Palpation: abdomen soft; abdomen nontender, no guarding and abdomen not rigid Neurologic: CN's II-XI intact bilaterally and moves all extremities; no focal motor deficits Results & Data Vital Signs (Past 12 Hours) Vital Signs Temp Pulse Pulse Resp BP Pulse Ox O2 Del Method 11/02/23 10:27 36.6 C 61 16 121/65 97 Nasal Cannula 11/02/23 07:44 66 18 112/56 L 97 Nasal Cannula 11/02/23 02:58 36.6 C 65 19 115/64 99 Nasal Cannula 11/02/23 00:30 58 L O2 Flow Rate 11/02/23 10:27 2 11/02/23 07:44 2 11/02/23 02:58 11/02/23 00:30 Laboratory Results CBC 11/02/23 Range/Units 05:41 WBC 8.66 (4.8-10.8) K/ul RBC 3.19 L (4.20-5.40) M/uL Hgb 9.5 L (12.0-16.0) g/dl Hct 30.4 L (37.0-47.0) % Plt Count 214 (130-400) K/uL Neut # (Auto) 6.82 H (1.40-6.50) K/uL Lymph # (Auto) 1.16 L (1.20-3.40) K/uL [place] # (Auto) 0.50 (0.11-0.59) K/uL Eos # (Auto) 0.12 (0.00-0.50) K/uL Baso # (Auto) 0.03 (0.00-0.20) K/uL Comprehensive Metabolic Panel 11/02/23 Range/Units 05:41 Sodium 139 (136-145) mmol/L Potassium 3.8 (3.5-5.1) mmol/L Chloride 104 (98-107) mmol/L Carbon Dioxide 27 (21-32) mmol/L BUN 20 (6-23) mg/dl Creatinine 1.03 (0.6-1.2) mg/dl Glucose 126 H (70-99(Fasting)) mg/dl Calcium 6.9 L (8.6-10.3) mg/dl Intake and Output 11/01/23 11/02/23 11/02/23 22:59 06:59 14:59 Intake Total 1056.25 / 2408.75 982.5 / 2408.75 Output Total 250 / 375 125 / 375 Balance 806.25 / 3.75 857.5 / 2033.75 Intake: IV 1056.25 / 2358.75 932.5 / 2358.75 Magnesium Sulfate / D5w 1 gm In 100 / 100 100 ml @ 50 mls/hr IV ONE ONE Rx#:[id number] Piperacillin/Tazobactam 4.5 gm 100 / 300 100 / 300 In Dextrose 5% Mini-B 100 ml @ 25 mls/hr IV Q8H [facility] Rx#: [id number] Sodium Chloride 0.9% 1,000 ml @ 856.25 / 1688.75 832.5 / 1688.75 75 mls/hr IV .[id number] [facility] Rx#: [id number] Oral 50 / 50 Output: Urine Amount (Catheter) 250 / 375 125 / 375 [place]/Indwelling 250 / 375 125 / 375 Other: Weight 66 kg Weight Measurement Method Built in [facility]
[2023-11-02] MEDS: cefTRIAXone SODIUM 2,000 MG/50 ML BAG IV SCH (12:41)
[2023-11-02] MEDS: PHENAZOPYRIDINE HCL 100 MG TAB PO PRN (15:41)
[2023-11-02] MEDS: POTASSIUM CHLORIDE CRTAB 20 MEQ TABCR PO STA (15:41)
--- NOTE | 2023-11-02 16:44 | Hospitalist Progress Note ---
Date of Service November 02, 2023 Assessment & Plan (1) Complicated UTI (urinary tract infection): Plan: 82-year-old female with past medical history significant for dyslipidemia, surgical hypoparathyroidism, prediabetes, peripheral artery disease, paroxysmal atrial tachycardia, tachybradycardia syndrome, hypertension, moderate aortic regurgitation, first-degree AV block, GERD, CKD stage III, classical migraines, sensorineural hearing loss both ears, polyneuropathy, open-angle glaucoma, presents with abdominal pain and also found to have atrial tachycardia with heart rates in 140s which improved after 1 dose of IV Lopressor. Patient states she drank iced tea today. Around 2 PM she developed abdominal pain. All over the abdomen 8/10 in severity. No nausea. Normal bowel movement in the afternoon. Because of abdominal pain she came to the ER. Currently abdominal pain resolved. She stated she is passing a lot of gas. CAT scan showing possible ileus. UA is pending. Denies any fevers. Denies any burning micturition. Denies any hematuria. Denies any chest pain or shortness of breath. No cough. No headache. Vision is okay , no runny nose or sore throat. Currently resting comfortably and hemodynamics are okay. Patient was recently in the hospital and discharged on 10/29/23 for acute on chronic combined systolic and diastolic CHF and also had atrial tachycardia and paroxysmal atrial fibrillation .During that admission also had cardiac cath with drug-eluting stent to the LAD .Also tachybradycardia syndrome with bradycardia possibly on higher dose of metoprolol and because risk of fall anticoagulation with Eliquis was not started and she is on currently on aspirin and Plavix. Patient was also admitted in the early October with complicated UTI with Pseudomonas bacteremia treated with antibiotics.Patient also had severe sepsis and acute UTI in and was s/p left ureteral stent placement on 09/25/2023 by urology and also found to have bladder mass at the time. Plan for definitive stone surgery and TURBT scheduled for 11/09. Presented with diffuse abdominal pain CT showed intact ureteral tube with distended gas-filled colon suggestive of ileus, no diverticulitis History of Pseudomonas bacteremia and UTI and Enterococcus faecalis UTI on second of this month Urine culture is growing gram-negative bacilli this time Started with intravenous Zosyn and vancomycin-vancomycin was discontinued Awaiting further identification-grown Klebsiella pneumoniae which is sensitive to cephalosporins Appreciate urology input and recommendation Clinically little better without any more abdominal pain Still complaining lower abdominal pain and will try some Pyridium Will continue current intravenous antibiotic-ceftriaxone followed by cefpodoxime on discharge (2) Ureteral stent present: Plan: History of kidney stone And bladder mass On Flomax Plan for definitive stone surgery and TURBT on 11/09 (3) Diffuse abdominal pain: (4) Paroxysmal atrial fibrillation: Plan: Noted to have atrial tachycardia/A-fib with a rate of 144 Started with oral amiodarone Later on reverted to sinus rhythm Denies any cardiac symptoms Appreciate cardiology input and recommendation Will continue current management Heart rate remains controlled with current medications (5) Systolic and diastolic CHF, chronic: Plan: Recent hospitalization with acute on chronic combined systolic and diastolic heart failure No evidence of fluid overload and or acute CHF during this admission Will continue with the Lasix Has been getting cautious amount of intravenous fluid for low urine output (6) Status post insertion of drug-eluting stent into left anterior descending (LAD) artery: Plan: Elevated troponin due to a stress Free from any cardiac symptoms Will continue aspirin and Plavix (7) Diabetes mellitus type 2, uncomplicated: Plan: Continue sliding scale insulin coverage Plan Hypertension on metoprolol succinate, losartan and diuretics we will monitor Blood pressure remains on the lower side Hyperlipidemia on statin DVT prophylaxis heparin subcu disposition telemetry full code. Admission and Anticipated Discharge Date Admission Date: October 31, 2023 Subjective 11/01/2023 The patient was seen and examined in ICU She was admitted with abdominal pain which is resolved now Noted to have A-fib with RVR and seems to be in sinus rhythm now Has been feeling much better since admission Remains weak and lethargic 11/02/2023 The patient was seen and examined in telemetry unit She remains weak and lethargic Complains today of some lower abdominal pain Her urine output has been low Review of Systems Review of Systems: All systems reviewed and are unremarkable except as noted below Physical Exam Physical Exam: Lying in bed without any acute distress Constitutional: + ill appearing and average body habitus Eyes: PERRL, conjunctivae normal, anicteric sclerae ENMT: external ear and nose normal, oropharynx normal Neck: trachea midline, no thyromegaly Respiratory: no respiratory distress Auscultation: + diminished lung sounds and + crackles (Minimal crackles at the bases) Cardiovascular: Rate/Rhythm: regular rate and regular rhythm; not tachycardic Heart Sounds: normal S1 and normal S2; no murmur Extremities: no edema Gastrointestinal (Abdomen): Inspection/Auscultation: normal bowel sounds; abdomen not distended Percussion/Palpation: abdomen soft; abdomen nontender Neurologic: normal touch/pain/proprioception and moves all extremities; no focal motor deficits Psychiatric: A+Ox3, euthymic affect Lymphatic: no cervical or axillary lymphadenopathy Results & Data Results & Data Vital Signs (Past 12 Hours) Vital Signs Temp Pulse Pulse Resp BP Pulse Ox O2 Del Method 11/02/23 16:28 62 11/02/23 14:29 36.4 C L 62 18 128/67 99 Nasal Cannula 11/02/23 10:27 36.6 C 61 16 121/65 97 Nasal Cannula 11/02/23 08:28 64 11/02/23 08:00 Nasal Cannula 11/02/23 07:44 66 18 112/56 L 97 Nasal Cannula O2 Flow Rate 11/02/23 16:28 11/02/23 14:29 2 11/02/23 10:27 2 11/02/23 08:28 11/02/23 08:00 2 11/02/23 07:44 2 Laboratory Results Short CBC 11/02/23 Range/Units 05:41 WBC 8.66 (4.8-10.8) K/ul Hgb 9.5 L (12.0-16.0) g/dl Hct 30.4 L (37.0-47.0) % Plt Count 214 (130-400) K/uL BMP 11/02/23 05:41 Sodium 139 Potassium 3.8 Chloride 104 Carbon Dioxide 27 BUN 20 Creatinine 1.03 Glucose 126 H Calcium 6.9 L Medications Administered Current Inpatient Medications Acetaminophen (Acetaminophen 325 Mg Tab) 650 mg PO Q4H PRN PRN Reason: Pain or Fever Stop: 11/30/23 23:50 Last Admin: 11/02/23 11:19 Dose: 650 mg Amiodarone HCl (Amiodarone 200 Mg Tab) 200 mg PO [facility] Stop: 12/01/23 09:59 Last Admin: 11/01/23 10:58 Dose: 200 mg Aspirin (Aspirin 81 Mg Ectab) 81 mg PO [facility] Stop: 12/01/23 08:59 Last Admin: 11/02/23 08:23 Dose: 81 mg Calcitriol (Calcitriol 0.25 Mcg Capsule) 1 mcg PO QAM [facility] Stop: 12/01/23 08:59 Last Admin: 11/02/23 08:21 Dose: 1 mcg Clopidogrel Bisulfate (Clopidogrel Bisulfate 75 Mg Tab) 75 mg PO QAM [facility] Stop: 12/01/23 08:59 Last Admin: 11/02/23 08:19 Dose: 75 mg Dorzolamide/Timolol (Dorzolamide/Timolol 22.3/6.8mg/Ml 10 Ml Btl) 1 drops OPB HS [facility] Stop: 12/01/23 20:59 Last Admin: 11/01/23 20:30 Dose: 1 drops Duloxetine HCl (Duloxetine Hcl 60 Mg Cap) 60 mg PO DAILY [facility] Stop: 12/01/23 08:59 Last Admin: 11/02/23 08:20 Dose: 60 mg [facility]urosemide ([facility]semide 40 Mg Tab) [facility] Stop: 12/01/23 08:59 Last Admin: 11/02/23 08:01 Dose: 40 mg Heparin Sodium (Porcine) (Heparin Sod 5,000 Unit/0.5 Ml Vial) 5,000 units SQ Q12 [facility] Stop: 12/01/23 08:59 Last Admin: 11/02/23 08:23 Dose: 5,000 units Sodium Chloride (Nss) 1,000 mls @ 125 mls/hr IV .Q8H [facility] Stop: 11/02/23 16:45 Last Infusion: 11/02/23 16:04 Dose: 125 mls/hr Ceftriaxone Sodium (Rocephin) 2,000 mg in 50 mls @ 100 mls[facility]hr [facility] [place] Stop: 11/12/23 08:59 Last Infusion: 11/02/23 13:13 Dose: Infused Latanoprost (Latanoprost 0.005% Op Soln 2.5 Ml Btl) 1 drops OPB [facility] Stop: 12/01/23 08:59 Last Admin: 11/02/23 08:25 Dose: 1 drops Losartan Potassium (Losartan Potassium 25 Mg Tab) 12.5 mg PO QAM [facility] Stop: 12/01/23 08:59 Last Admin: 11/02/23 08:20 Dose: 12.5 mg Metoprolol Succinate (Metoprolol Succ 25mg Ext Rel Tab) 25 mg PO BID [facility] Stop: 12/01/23 08:59 Last Admin: 11/02/23 08:22 Dose: 25 mg Miscellaneous (Vyzulta 0.024 % Drops - Order Awaiting Action) 1 each N/A QS [facility] Stop: 12/01/23 07:59 Last Admin: 11/02/23 16:03 Dose: Not Given Multivitamins (Multivitamin Tab) 1 tab PO QAM [facility] Stop: 12/01/23 08:59 Last Admin: 11/02/23 08:23 Dose: 1 tab Nitroglycerin (Nitroglycerin Sl 0.4 Mg/Tab Tab) 0.4 mg SL Q5M PRN PRN Reason: Chest Pain Stop: 11/30/23 23:50 Pantoprazole Sodium (Pantoprazole 40 Mg Tab) 40 mg PO BID [facility] Stop: 12/01/23 08:59 Last Admin: 11/02/23 08:21 Dose: 40 mg Phenazopyridine HCl (Phenazopyridine Hcl 100 Mg Tab) 100 mg PO TID PRN PRN Reason: Bladder pain Stop: 12/02/23 13:15 Last Admin: 11/02/23 15:41 Dose: 100 mg Rosuvastatin Calcium (Rosuvastatin Calcium 10 Mg Tab) 10 mg PO HS [facility] Stop: 12/01/23 20:59 Last Admin: 11/01/23 19:53 Dose: 10 mg Tamsulosin HCl (Tamsulosin Hcl 0.4 Mg Cap) 0.4 mg PO DAILY [facility] Stop: 12/01/23 08:59 Last Admin: 11/02/23 08:19 Dose: 0.4 mg
--- NOTE | 2023-11-02 23:03 | Electrocardiogram Report ---
Test Reason : Blood Pressure : / mmHG Vent. Rate : 109 BPM Atrial Rate : 109 BPM P-R Int : 170 ms QRS Dur : 074 ms QT Int : 358 ms P-R-T Axes : 045 025 116 degrees QTc Int : 482 ms Sinus tachycardia T wave abnormality, consider anterolateral ischemia Abnormal ECG When compared with ECG of 27-OCT-2023 08:06, Premature atrial complexes are no longer Present Vent. rate has increased BY 41 BPM QT has shortened Confirmed by Colton Okeefe ([id number]) on 11/02/2023 11:02:50 PM Referred By: REFERRED SELF Confirmed By:Colton Okeefe
--- NOTE | 2023-11-02 23:05 | Electrocardiogram Report ---
Test Reason : Blood Pressure : / mmHG Vent. Rate : 144 BPM Atrial Rate : 000 BPM P-R Int : 000 ms QRS Dur : 072 ms QT Int : 346 ms P-R-T Axes : 000 017 158 degrees QTc Int : 535 ms Supraventricular tachycardia Abnormal ECG When compared with ECG of 31-OCT-2023 19:23, (unconfirmed) Non-specific change in ST segment in Inferior leads Nonspecific T wave abnormality now evident in Inferior leads Confirmed by Colton Okeefe ([id number]) on 11/02/2023 11:04:46 PM Referred By: REFERRED SELF Confirmed By:Colton Okeefe
--- NOTE | 2023-11-02 23:06 | Electrocardiogram Report ---
Test Reason : Blood Pressure : / mmHG Vent. Rate : 079 BPM Atrial Rate : 079 BPM P-R Int : 166 ms QRS Dur : 074 ms QT Int : 484 ms P-R-T Axes : 022 020 123 degrees QTc Int : 554 ms Normal sinus rhythm Low voltage QRS T wave abnormality, consider anterolateral ischemia Prolonged QT Abnormal ECG When compared with ECG of 31-OCT-2023 19:24, (unconfirmed) Supraventricular tachycardia is no longer Present Vent. rate has decreased BY 65 BPM Non-specific change in ST segment in Inferior leads Nonspecific T wave abnormality no longer evident in Inferior leads T wave inversion less evident in Lateral leads Confirmed by Colton Okeefe ([id number]) on 11/02/2023 11:06:01 PM Referred By: REFERRED SELF Confirmed By:Colton Okeefe
[2023-11-03 06:53] LABS: Basophils # (auto) 0.05 K/uL (0.00-0.20); Basophils % (auto) 0.7 %; Eosinophils # (auto) 0.17 K/uL (0.00-0.50); Eosinophils % (auto) 2.5 %; Hematocrit (blood only) 31.7 % (37.0-47.0); Hemoglobin 9.8 g/dl (12.0-16.0); Immature Granulocytes # (auto) 0.04 K/uL (0.01-0.20); Immature Granulocytes % (auto) 0.6 %; Lymphocytes # (auto) 1.43 K/uL (1.20-3.40); Lymphocytes % (auto) 21.3 %; Mean Corpuscular Hemoglobin 29.8 pg (25.0-34.0); Mean Corpuscular Hgb Conc 30.9 g/dL (32.0-36.0); Mean Corpuscular Volume 96.4 fL (80.0-100.0); Mean Platelet Volume 10.1 fL (9.4-12.4); Monocytes % (auto) 7.5 %; Neutrophils # (auto) 4.51 K/uL (1.40-6.50); Neutrophils % (auto) 67.4 %; Platelet Count 229 K/uL (130-400); RDW Coefficient of Variation 13.3 % (11.5-14.5); RDW Standard Deviation 47.2 fL (36.4-46.3); Red Blood Count 3.29 M/uL (4.20-5.40)
--- NOTE | 2023-11-03 06:58 | Electrocardiogram Report ---
Test Reason : Blood Pressure : / mmHG Vent. Rate : 059 BPM Atrial Rate : 059 BPM P-R Int : 184 ms QRS Dur : 080 ms QT Int : 590 ms P-R-T Axes : 010 017 246 degrees QTc Int : 584 ms Sinus bradycardia Low voltage QRS T wave abnormality, consider inferior ischemia T wave abnormality, consider anterolateral ischemia Prolonged QT Abnormal ECG When compared with ECG of 31-OCT-2023 19:49, (unconfirmed) Nonspecific T wave abnormality now evident in Inferior leads T wave inversion more evident in Lateral leads Confirmed by Colton Okeefe ([id number]) on 11/03/2023 6:58:18 AM Referred By: REFERRED SELF Confirmed By:Colton Okeefe
[2023-11-03 07:09] LABS: Calcium 6.7 mg/dl (8.6-10.3); Est GFR (African American) 60.8 ml/min; Est GFR (Non-African American) 52.4 ml/min; Potassium 3.5 mmol/L (3.5-5.1)
--- NOTE | 2023-11-03 08:13 | Urology Progress Note ---
Date of Service November 03, 2023 Assessment & Plan (1) Hydronephrosis: (2) Bladder mass: (3) Acute UTI: Plan Patient underwent left ureteral stent placement 09/25/2023 -postprocedure she has been seen in the hospital with urology consults on 10/14/2023 in 11/01/2023 Patient presented back to the ER on 10/31/2023 for abdominal pain-CT showed possible ileus, gas in the bladder Urine culture grew Klebsiella pneumonia-patient currently on Zosyn Plan for definitive stone surgery and TURBT on 11/09-may adjust as needed pending hospital course Patient currently on Flomax with catheter in place for maximal drainage-continue to monitor Trend antibiotics per cultures Continue supportive care with medical management and hydration per primary team Pyridium may be used as needed for discomfort Can also add in oxybutynin as needed due to possible bladder spasms with associated catheter leakage Urology will follow peripherally-please call with any questions or concerns Admission and Anticipated Discharge Date Admission Date: October 31, 2023 Subjective Patient resting comfortably in bed Denying abdominal or flank pain Denies dysuria Catheter draining clear yellow, some leakage around catheter insertion site Labs reviewed: 11/03/2023 Glucose 102 Hemoglobin 9.8 Creatinine 1.00 WBC 6.7 Patient has been afebrile and hemodynamically stable Review of Systems Constitutional: as per Subjective / HPI Genitourinary: as per Subjective / HPI Physical Exam Constitutional: well developed and well nourished; no acute distress Respiratory: normal respiratory effort and able to speak in complete sentences Musculoskeletal: Extremities: extremities normal to inspection Psychiatric: Orientation: alert and oriented x 3 Genitourinary: Catheter draining clear yellow Results & Data Vital Signs (Past 12 Hours) Vital Signs Temp Pulse Pulse Resp BP Pulse Ox O2 Del Method 11/03/23 07:29 36.5 C 58 L 18 138/66 96 Nasal Cannula 11/03/23 06:34 96 Nasal Cannula 11/03/23 05:30 94 Room Air 11/03/23 05:25 96 Nasal Cannula 11/03/23 02:46 36.7 C 57 L 16 126/63 97 Nasal Cannula 11/02/23 23:04 36.5 C 66 16 128/71 97 Nasal Cannula 11/02/23 21:49 61 O2 Flow Rate 11/03/23 07:29 2 11/03/23 06:34 1 11/03/23 05:30 11/03/23 05:25 1 11/03/23 02:46 2 11/02/23 23:04 2 11/02/23 21:49 PG Care Time/CCT Total # of Minutes Spent Total Time Spent with Patient: Total time spent is greater than 50% in coordination of care (as documented) at patient's floor/unit and/or counseling patient: Coding Level of Care Code 06839 SUB INP/OBS CARE 2/35MIN Diagnoses Hydronephrosis with urinary obstruction due to ureteral calculus N13.2 Hydronephrosis type: with ureteral calculous obstruction Bladder mass N32.89 Acute UTI N39.0 (1) Hydronephrosis Hydronephrosis type: with ureteral calculous obstruction Qualified Code(s): N13.2 - Hydronephrosis with renal and ureteral calculous obstruction
--- NOTE | 2023-11-03 09:08 | Electrocardiogram Report ---
Test Reason : Blood Pressure : / mmHG Vent. Rate : 061 BPM Atrial Rate : 061 BPM P-R Int : 168 ms QRS Dur : 082 ms QT Int : 524 ms P-R-T Axes : 000 010 172 degrees QTc Int : 527 ms Poor data quality, interpretation may be adversely affected Sinus rhythm with Premature atrial complexes Low voltage QRS T wave abnormality, consider anterolateral ischemia Prolonged QT Abnormal ECG When compared with ECG of 02-NOV-2023 05:16, Premature atrial complexes are now Present QT has shortened Confirmed by Ralph Bond ([id number]) on 11/03/2023 9:08:09 AM Referred By: REFERRED SELF Confirmed By:Ralph Bond
--- NOTE | 2023-11-03 12:38 | Cardiology Progress Note ---
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 Drug-eluting stent implanted to the left anterior descending artery 10/26/2023. Amiodarone discontinued 11/02/2023 due to QT prolongation. Continue metoprolol succinate 25 mg twice daily. 40 mEq p.o. potassium chloride ordered. Add KCl 20 mEq daily. As previously documented, patient is not a candidate for long-term anticoagulation. Monitor telemetry during hospitalization. Continue aspirin, clopidogrel, rosuvastatin, and losartan. Patient appears euvolemic. Continue outpatient dose of furosemide, 40 mg daily. Admission and Anticipated Discharge Date Admission Date: October 31, 2023 Subjective Patient seen and examined at the bedside. Denies chest pain or shortness of breath. No orthopnea, PND, or edema. Telemetry reveals sinus rhythm in the 50s and 60s. QTc trending downward to 527 MS today. Amiodarone discontinued 11/02/2023. Poor historian. Offers no complaints. Review of Systems Review of Systems: All systems reviewed & are unremarkable except as noted in Subjective Physical Exam Constitutional: well nourished; no acute distress Respiratory: no respiratory distress, no labored breathing and no retractions Auscultation: no crackles, no rales, no rhonchi and no wheezes Cardiovascular: Rate/Rhythm: regular rate and regular rhythm Heart Sounds: normal S1 and normal S2; no murmur Vessels: radial pulses present; no JVD and no carotid bruit Extremities: no edema Gastrointestinal (Abdomen): Inspection/Auscultation: abdomen not distended and + abnormal bowel sounds Percussion/Palpation: abdomen soft; abdomen nontender, no guarding and abdomen not rigid Neurologic: CN's II-XI intact bilaterally and moves all extremities; no focal motor deficits Results & Data Vital Signs (Past 12 Hours) Vital Signs Temp Pulse Resp BP Pulse Ox O2 Del Method O2 Flow Rate 11/03/23 10:52 36.7 C 58 L 17 136/45 L 92 Room Air 11/03/23 08:00 Nasal Cannula 1 11/03/23 07:29 36.5 C 58 L 18 138/66 96 Nasal Cannula 2 11/03/23 06:34 96 Nasal Cannula 1 11/03/23 05:30 94 Room Air 11/03/23 05:25 96 Nasal Cannula 1 11/03/23 02:46 36.7 C 57 L 16 126/63 97 Nasal Cannula 2 Laboratory Results CBC 11/03/23 Range/Units 05:57 WBC 6.70 (4.8-10.8) K/ul RBC 3.29 L (4.20-5.40) M/uL Hgb 9.8 L (12.0-16.0) g/dl Hct 31.7 L (37.0-47.0) % Plt Count 229 (130-400) K/uL Neut # (Auto) 4.51 (1.40-6.50) K/uL Lymph # (Auto) 1.43 (1.20-3.40) K/uL [place] # (Auto) 0.50 (0.11-0.59) K/uL Eos # (Auto) 0.17 (0.00-0.50) K/uL Baso # (Auto) 0.05 (0.00-0.20) K/uL Comprehensive Metabolic Panel 11/03/23 Range/Units 05:57 Sodium 140 (136-145) mmol/L Potassium 3.5 (3.5-5.1) mmol/L Chloride 105 (98-107) mmol/L Carbon Dioxide 27 (21-32) mmol/L BUN 17 (6-23) mg/dl Creatinine 1.00 (0.6-1.2) mg/dl Glucose 102 H (70-99(Fasting)) mg/dl Calcium 6.7 L (8.6-10.3) mg/dl Intake and Output 11/02/23 11/03/23 11/03/23 22:59 06:59 14:59 Intake Total 1000.0 / 1865.0 50 / 50 Output Total 300 / 900 350 / 900 Balance 700.0 / 965.0 -350 / 965.0 50 / 50 Intake: IV 1000.0 / 1085.0 50 / 50 Sodium Chloride 0.9% 1,000 ml @ 1000.0 / 1000.0 125 mls/hr IV .Q8H [facility] Rx#: [id number] SODIUM 2,000 mg In 50 / 50 50 ml @ 100 mls/hr IV QAM REPLACED BY [facility] Rx#:[id number] Output: Urine Amount (Catheter) 300 / 900 350 / 900 [place]/Indwelling 300 / 900 350 / 900 Other: Other Intake Source Sips Sips Weight 67.4 kg Weight Measurement Method Built in [facility]
[2023-11-03] MEDS: POTASSIUM CHLORIDE 20 MEQ/15 ML UDC PO STA (14:24)
[2023-11-03] MEDS: POTASSIUM CHLORIDE CRTAB 20 MEQ TABCR PO STA (14:33)
[2023-11-03] MEDS: POLYETHYLENE (MIRALAX) 17 GM PACK PO PRN (17:16)
--- NOTE | 2023-11-03 17:30 | Hospitalist Progress Note ---
Date of Service November 03, 2023 Assessment & Plan (1) Complicated UTI (urinary tract infection): Plan: 82-year-old female with past medical history significant for dyslipidemia, surgical hypoparathyroidism, prediabetes, peripheral artery disease, paroxysmal atrial tachycardia, tachybradycardia syndrome, hypertension, moderate aortic regurgitation, first-degree AV block, GERD, CKD stage III, classical migraines, sensorineural hearing loss both ears, polyneuropathy, open-angle glaucoma, presents with abdominal pain and also found to have atrial tachycardia with heart rates in 140s which improved after 1 dose of IV Lopressor. Patient states she drank iced tea today. Around 2 PM she developed abdominal pain. All over the abdomen 8/10 in severity. No nausea. Normal bowel movement in the afternoon. Because of abdominal pain she came to the ER. Currently abdominal pain resolved. She stated she is passing a lot of gas. CAT scan showing possible ileus. UA is pending. Denies any fevers. Denies any burning micturition. Denies any hematuria. Denies any chest pain or shortness of breath. No cough. No headache. Vision is okay , no runny nose or sore throat. Currently resting comfortably and hemodynamics are okay. Patient was recently in the hospital and discharged on 10/29/23 for acute on chronic combined systolic and diastolic CHF and also had atrial tachycardia and paroxysmal atrial fibrillation .During that admission also had cardiac cath with drug-eluting stent to the LAD .Also tachybradycardia syndrome with bradycardia possibly on higher dose of metoprolol and because risk of fall anticoagulation with Eliquis was not started and she is on currently on aspirin and Plavix. Patient was also admitted in the early October with complicated UTI with Pseudomonas bacteremia treated with antibiotics.Patient also had severe sepsis and acute UTI in and was s/p left ureteral stent placement on 09/25/2023 by urology and also found to have bladder mass at the time. Plan for definitive stone surgery and TURBT scheduled for 11/09. Presented with diffuse abdominal pain CT showed intact ureteral tube with distended gas-filled colon suggestive of ileus, no diverticulitis History of Pseudomonas bacteremia and UTI and Enterococcus faecalis UTI on second of this month Urine culture is growing gram-negative bacilli this time Started with intravenous Zosyn and vancomycin-vancomycin was discontinued Awaiting further identification-grown Klebsiella pneumoniae which is sensitive to cephalosporins Appreciate urology input and recommendation Clinically little better without any more abdominal pain Still complaining lower abdominal pain and will try some Pyridium Will continue current intravenous antibiotic-ceftriaxone followed by cefpodoxime on discharge to finish a total of 10 days course from 11/02/2023 Clinically much better and complains some dysuria Has been getting Pyridium and feeling better Generalized weakness Combination of all of the above Has had PT evaluation during her recent admission and recommended rehab but she refused to go to rehab and went home instead PT at this time recommended short-term rehab but the patient does not want to go to rehab Will continue PT while in the hospital (2) Ureteral stent present: Plan: History of kidney stone And bladder mass On Flomax Plan for definitive stone surgery and TURBT on 11/09 (3) Diffuse abdominal pain: (4) Paroxysmal atrial fibrillation: Plan: Noted to have atrial tachycardia/A-fib with a rate of 144 Started with oral amiodarone Later on reverted to sinus rhythm Denies any cardiac symptoms Appreciate cardiology input and recommendation Will continue current management Heart rate remains controlled with current medications Heart rate remains controlled with amiodarone (5) Systolic and diastolic CHF, chronic: Plan: Recent hospitalization with acute on chronic combined systolic and diastolic heart failure No evidence of fluid overload and or acute CHF during this admission Will continue with the Lasix Has been getting cautious amount of intravenous fluid for low urine output Intravenous fluid has been discontinued and will continue with her Lasix (6) Status post insertion of drug-eluting stent into left anterior descending (LAD) artery: Plan: Elevated troponin due to a stress Free from any cardiac symptoms Will continue aspirin and Plavix (7) Diabetes mellitus type 2, uncomplicated: Plan: Continue sliding scale insulin coverage Plan Hypertension on metoprolol succinate, losartan and diuretics we will monitor Blood pressure remains on the lower side Hyperlipidemia on statin DVT prophylaxis heparin subcu disposition telemetry full code. Admission and Anticipated Discharge Date Admission Date: October 31, 2023 Subjective 11/01/2023 The patient was seen and examined in ICU She was admitted with abdominal pain which is resolved now Noted to have A-fib with RVR and seems to be in sinus rhythm now Has been feeling much better since admission Remains weak and lethargic 11/02/2023 The patient was seen and examined in telemetry unit She remains weak and lethargic Complains today of some lower abdominal pain Her urine output has been low 11/03/2023 The patient was seen and examined in telemetry unit in presence of the daughter She has been weak and complains of lower abdominal pain specially when urinating Denies any palpitation or chest pain No fever and or chills Review of Systems Review of Systems: All systems reviewed and are unremarkable except as noted below Physical Exam Physical Exam: Lying in bed without any acute distress Constitutional: + ill appearing and average body habitus Eyes: PERRL, conjunctivae normal, anicteric sclerae ENMT: external ear and nose normal, oropharynx normal Neck: trachea midline, no thyromegaly Respiratory: no respiratory distress Auscultation: + diminished lung sounds and + crackles (Minimal crackles at the bases) Cardiovascular: Rate/Rhythm: regular rate and regular rhythm; not tachycardic Heart Sounds: normal S1 and normal S2; no murmur Extremities: no edema Gastrointestinal (Abdomen): Inspection/Auscultation: normal bowel sounds; abdomen not distended Percussion/Palpation: abdomen soft; abdomen nontender Neurologic: normal touch/pain/proprioception and moves all extremities; no focal motor deficits Psychiatric: A+Ox3, euthymic affect Lymphatic: no cervical or axillary lymphadenopathy Results & Data Results & Data Vital Signs (Past 12 Hours) Vital Signs Temp Pulse Pulse Resp BP Pulse Ox O2 Del Method 11/03/23 15:25 36.5 C 61 17 124/70 95 Room Air 11/03/23 14:57 62 11/03/23 11:00 61 11/03/23 10:52 36.7 C 58 L 17 136/45 L 92 Room Air 11/03/23 08:00 Nasal Cannula 11/03/23 07:29 36.5 C 58 L 18 138/66 96 Nasal Cannula 11/03/23 06:34 96 Nasal Cannula 11/03/23 05:30 94 Room Air 11/03/23 05:25 96 Nasal Cannula O2 Flow Rate 11/03/23 15:25 11/03/23 14:57 11/03/23 11:00 11/03/23 10:52 11/03/23 08:00 1 11/03/23 07:29 2 11/03/23 06:34 1 11/03/23 05:30 11/03/23 05:25 1 Laboratory Results Short CBC 11/03/23 Range/Units 05:57 WBC 6.70 (4.8-10.8) K/ul Hgb 9.8 L (12.0-16.0) g/dl Hct 31.7 L (37.0-47.0) % Plt Count 229 (130-400) K/uL [facility] 11/03/23 05:57 Sodium 140 Potassium 3.5 Chloride 105 Carbon Dioxide 27 BUN 17 Creatinine 1.00 Glucose 102 H Calcium 6.7 L Medications Administered Current Inpatient Medications Acetaminophen (Acetaminophen 325 Mg Tab) 650 mg PO Q4H PRN PRN Reason: Pain or Fever Stop: 11/30/23 23:50 Last Admin: 11/03/23 14:29 Dose: 650 mg Amiodarone HCl (Amiodarone 200 Mg Tab) 200 mg PO [facility] Stop: 12/01/23 09:59 Last Admin: 11/01/23 10:58 Dose: 200 mg Aspirin (Aspirin 81 Mg Ectab) 81 mg PO [facility] Stop: 12/01/23 08:59 Last Admin: 11/03/23 08:24 Dose: 81 mg Calcitriol (Calcitriol 0.25 Mcg Capsule) 1 mcg PO [facility] Stop: 12/01/23 08:59 Last Admin: 11/03/23 08:19 Dose: 1 mcg Clopidogrel Bisulfate (Clopidogrel Bisulfate 75 Mg Tab) 75 mg PO [facility] Stop: 12/01/23 08:59 Last Admin: 11/03/23 08:18 Dose: 75 mg Dorzolamide/Timolol (Dorzolamide/Timolol 22.3/6.8mg/Ml 10 Ml Btl) 1 drops OPB HS [facility] Stop: 12/01/23 20:59 Last Admin: 11/02/23 20:58 Dose: 1 drops Duloxetine HCl (Duloxetine Hcl 60 Mg Cap) 60 mg PO DAILY [facility] Stop: 12/01/23 08:59 Last Admin: 11/03/23 08:20 Dose: 60 mg Furosemide (Furosemide 40 Mg Tab) [facility] Stop: 12/01/23 08:59 Last Admin: 11/03/23 08:19 Dose: 40 mg Heparin Sodium (Porcine) (Heparin Sod 5,000 Unit/0.5 Ml Vial) 5,000 units SQ Q12 [facility] Stop: 12/01/23 08:59 Last Admin: 11/03/23 08:26 Dose: 5,000 units Ceftriaxone Sodium (Rocephin) 2,000 mg in 50 mls @ 100 mls/hr IV QAM [facility] Stop: 11/12/23 08:59 Last Infusion: 11/03/23 10:59 Dose: Infused Latanoprost (Latanoprost 0.005% Op Soln 2.5 Ml Btl) 1 drops OPB AMHS [facility] Stop: 12/01/23 08:59 Last Admin: 11/03/23 08:26 Dose: 1 drops Losartan Potassium (Losartan Potassium 25 Mg Tab) 12.5 mg PO QAM [facility] Stop: 12/01/23 08:59 Last Admin: 11/03/23 08:21 Dose: 12.5 mg Metoprolol Succinate (Metoprolol Succ 25mg Ext Rel Tab) 25 mg PO BID [facility] Stop: 12/01/23 08:59 Last Admin: 11/03/23 08:25 Dose: 25 mg Miscellaneous (Vyzulta 0.024 % Drops - Order Awaiting Action) 1 each N/A QS [facility] Stop: 12/01/23 07:59 Last Admin: 11/03/23 08:26 Dose: Not Given Multivitamins (Multivitamin Tab) 1 tab PO QAM [facility] Stop: 12/01/23 08:59 Last Admin: 11/03/23 08:19 Dose: 1 tab Nitroglycerin (Nitroglycerin Sl 0.4 Mg/Tab Tab) 0.4 mg SL Q5M PRN PRN Reason: Chest Pain Stop: 11/30/23 23:50 Pantoprazole Sodium (Pantoprazole 40 Mg Tab) 40 mg PO BID [facility] Stop: 12/01/23 08:59 Last Admin: 11/03/23 08:26 Dose: 40 mg Phenazopyridine HCl (Phenazopyridine Hcl 100 Mg Tab) 100 mg PO TID PRN PRN Reason: Bladder pain Stop: 12/02/23 13:15 Last Admin: 11/03/23 17:19 Dose: 100 mg Polyethylene Glycol (Polyethylene (Miralax) 17 Gm Pack) 17 gm PO DAILY PRN PRN Reason: Constipation Stop: 12/03/23 16:37 Last Admin: 11/03/23 17:16 Dose: 17 gm Potassium Chloride (Potassium Chloride Crtab 20 Meq Tabcr) 20 meq PO QAM [facility] Stop: 12/04/23 08:59 Rosuvastatin Calcium (Rosuvastatin Calcium 10 Mg Tab) 10 mg PO HS [facility] Stop: 12/01/23 20:59 Last Admin: 11/02/23 20:59 Dose: 10 mg Tamsulosin HCl (Tamsulosin Hcl 0.4 Mg Cap) 0.4 mg PO DAILY [facility] Stop: 12/01/23 08:59 Last Admin: 11/03/23 08:21 Dose: 0.4 mg
[2023-11-04 07:22] LABS: BUN Creatinine Ratio 13.4 (10-20); Calcium 6.9 mg/dl (8.6-10.3); Creatinine Clr Calc Pharmacy 41.1 ml/min; Est GFR (Non-African American) 54.4 ml/min; Magnesium 1.6 mg/dl (1.7-2.4); Potassium 3.2 mmol/L (3.5-5.1)
[2023-11-04] MEDS: POTASSIUM CHLORIDE CRTAB 20 MEQ TABCR PO SCH (08:17)
[2023-11-04] MEDS: POTASSIUM CHLORIDE CRTAB 20 MEQ TABCR PO STA (10:25)
[2023-11-04] MEDS: MAGNESIUM SULFATE / D5W 1 GM/100 ML BAG IV ONE (10:26)
--- NOTE | 2023-11-04 13:45 | Cardiology Progress Note ---
Date of Service November 04, 2023 Assessment & Plan (1) Atrial tachycardia: (2) Paroxysmal atrial fibrillation: (3) Status post insertion of drug-eluting stent into left anterior descending (LAD) artery: (4) Prolonged QT interval: (5) Hypokalemia: (6) Chronic heart failure with mildly reduced ejection fraction (HFmrEF, 41- 49%): (7) Acute UTI: Plan Atrial tachycardia recorded in setting of UTI,(+ Klebsiella), bladder mass, hydronephrosis, and fever. Drug-eluting stent implanted to the left anterior descending artery 10/26/2023. Amiodarone discontinued 11/02/2023 due to QT prolongation. Titrate Toprol-XL to 50 mg in the morning, 25 mg in the evening. Increase potassium supplementation to 40 mEq daily. As previously documented, patient is not a candidate for long-term anticoagulation. Monitor telemetry during hospitalization. Continue aspirin, clopidogrel, rosuvastatin, and losartan. Patient appears euvolemic. Continue outpatient dose of furosemide, 40 mg daily. I spent a total of 40 minutes on the date of service in preparation, delivery, and documentation of the care provided to this patient, excluding any time spent in the performance of separately billed services. Admission and Anticipated Discharge Date Admission Date: October 31, 2023 Subjective 82-year-old female seen and examined at bedside. Poor historian. Requesting removal of Salazar catheter. Brief episodes of recurrent atrial tachycardia noted on telemetry overnight. No associated symptoms. Persistent hypokalemia noted despite addition of daily potassium chloride. Review of Systems Review of Systems: All systems reviewed & are unremarkable except as noted in Subjective Physical Exam Constitutional: well nourished; no acute distress Respiratory: no respiratory distress, no labored breathing and no retractions Auscultation: no crackles, no rales, no rhonchi and no wheezes Cardiovascular: Rate/Rhythm: regular rate and regular rhythm Heart Sounds: normal S1 and normal S2; no murmur Vessels: radial pulses present; no JVD and no carotid bruit Extremities: no edema Gastrointestinal (Abdomen): Inspection/Auscultation: abdomen not distended and + abnormal bowel sounds Percussion/Palpation: abdomen soft; abdomen nontender, no guarding and abdomen not rigid Neurologic: CN's II-XI intact bilaterally and moves all extremities; no focal motor deficits Results & Data Vital Signs (Past 12 Hours) Vital Signs Temp Pulse Resp BP Pulse Ox O2 Del Method 11/04/23 10:25 36.6 C 70 18 137/65 91 Room Air 11/04/23 08:40 36.4 C L 80 18 148/68 H 93 Room Air 11/04/23 02:50 36.8 C 64 18 163/77 H 93 Room Air Laboratory Results Comprehensive Metabolic Panel 11/04/23 Range/Units 06:15 Sodium 142 (136-145) mmol/L Potassium 3.2 L (3.5-5.1) mmol/L Chloride 102 (98-107) mmol/L Carbon Dioxide 30 (21-32) mmol/L BUN 13 (6-23) mg/dl Creatinine 0.97 (0.6-1.2) mg/dl Glucose 119 H (70-99(Fasting)) mg/dl Calcium 6.9 L (8.6-10.3) mg/dl Intake and Output 11/03/23 11/04/23 11/04/23 22:59 06:59 14:59 Intake Total 240 / 590 150 / 150 Output Total 575 / 1525 450 / 1525 Balance -575 / -935 -210 / -935 150 / 150 Intake: IV 150 / 150 Magnesium Sulfate / D5w 1 gm In 100 / 100 100 ml @ 50 mls/hr IV ONE ONE Rx#:[id number] cefTRIAXone SODIUM 2,000 mg In 50 / 50 50 ml @ 100 mls/hr IV QAM [facility] Rx#:[id number] Oral 240 / 540 Output: Urine Amount (Catheter) 575 / 1525 450 / 1525 Salazar/Indwelling 575 / 1525 450 / 1525 Other: Weight 66.9 kg Weight Measurement Method Built in [facility]
--- NOTE | 2023-11-04 14:07 | Hospitalist Progress Note ---
Date of Service November 04, 2023 Assessment & Plan (1) Complicated UTI (urinary tract infection): Plan: 82-year-old female with past medical history significant for dyslipidemia, surgical hypoparathyroidism, prediabetes, peripheral artery disease, paroxysmal atrial tachycardia, tachybradycardia syndrome, hypertension, moderate aortic regurgitation, first-degree AV block, GERD, CKD stage III, classical migraines, sensorineural hearing loss both ears, polyneuropathy, open-angle glaucoma, presents with abdominal pain and also found to have atrial tachycardia with heart rates in 140s which improved after 1 dose of IV Lopressor. Patient states she drank iced tea today. Around 2 PM she developed abdominal pain. All over the abdomen 8/10 in severity. No nausea. Normal bowel movement in the afternoon. Because of abdominal pain she came to the ER. Currently abdominal pain resolved. She stated she is passing a lot of gas. CAT scan showing possible ileus. UA is pending. Denies any fevers. Denies any burning micturition. Denies any hematuria. Denies any chest pain or shortness of breath. No cough. No headache. Vision is okay , no runny nose or sore throat. Currently resting comfortably and hemodynamics are okay. Patient was recently in the hospital and discharged on 10/29/23 for acute on chronic combined systolic and diastolic CHF and also had atrial tachycardia and paroxysmal atrial fibrillation .During that admission also had cardiac cath with drug-eluting stent to the LAD .Also tachybradycardia syndrome with bradycardia possibly on higher dose of metoprolol and because risk of fall anticoagulation with Eliquis was not started and she is on currently on aspirin and Plavix. Patient was also admitted in the early October with complicated UTI with Pseudomonas bacteremia treated with antibiotics.Patient also had severe sepsis and acute UTI in and was s/p left ureteral stent placement on 09/25/2023 by urology and also found to have bladder mass at the time. Plan for definitive stone surgery and TURBT scheduled for 11/09. Complicated urinary tract infection --CT ABD:There is a left-sided double-J ureteral stent in place, unchanged in position since previous. No hydronephrosis or ureterolithiasis is seen involving either kidney. There are scattered gas fluid levels throughout fluid- filled distended but nondilated right and transverse colon which is abnormal and suggests ileus. There is diverticulosis of the lower left and sigmoid colon without evidence of acute diverticulitis. No acute focal bowel inflammation, pneumoperitoneum, or abscess is seen. -- Urine culture grew Klebsiella --Blood cultures negative to date --IV vancomycin, Zosyn transition to ceftriaxone Appreciate urology input Continue Salazar catheter for maximal drainage Patient is planned for definitive stone surgery and TURBT on November 09. Continue Flomax Pyridium as needed Plan to discharge on cefpodoxime to complete 10 day course from 11/02/2023 Patient refused rehab placement Plan to be discharged home Needs follow-up with urology on discharge Generalized weakness PT OT eval Patient refuses rehab placement Plan to be discharged home today (2) Ureteral stent present: Plan: History of kidney stone And bladder mass On Flomax Plan for definitive stone surgery and TURBT on 11/09 (3) Diffuse abdominal pain: (4) Paroxysmal atrial fibrillation: Plan: Atrial tachycardia Paroxysmal atrial fibrillation Amiodarone discontinued due to prolonged QT Metoprolol increased to 50 mg in the morning, 25 mg in the evening Monitor and repeat electrolytes as needed Appreciate cardiology input (5) Systolic and diastolic CHF, chronic: Plan: Recent hospitalization with acute on chronic combined systolic and diastolic heart failure No evidence of fluid overload and or acute CHF during this admission Continue home diuretics Monitor volume status (6) Status post insertion of drug-eluting stent into left anterior descending (LAD) artery: Plan: Elevated troponin--chronic, could have type II IN continue aspirin and Plavix (7) Diabetes mellitus type 2, uncomplicated: Plan: Continue sliding scale insulin coverage Plan Hypertension on metoprolol succinate, losartan and diuretics monitor Hyperlipidemia on statin DVT Px: Heparin SQ CODE STATUS Full code Admission and Anticipated Discharge Date Admission Date: October 31, 2023 Subjective Patient is seen and examined at bedside States having generalized weakness Also reports dysuria Denies any hematuria, chest pain, dyspnea Refuses rehab placement Discussed with cardiology today Prefers to be discharged home today Review of Systems Review of Systems: All systems reviewed & are unremarkable except as noted in Subjective Physical Exam Physical Exam: Physical Exam: Vitals signs as noted above General Appearance:Moderately built and nourished, no apparent distress, chronic ill-appearing, elderly Head: normocephalic, Atraumatic Eyes: normal inspection, EOMI Neck: supple, Trachea midline Respiratory/Chest: Decreased breath sounds, CTA, No accessory muscle use Cardiovascular: S1, S2, No murmur Abdomen/GI:Soft, Non tender, Bowel sounds present Extremities/Musculoskeletal:normal inspection, no edema Neurologic/Psych:AAOX3, grossly no focal neurological deficits Skin: normal color, warm Results & Data Results & Data Vital Signs (Past 12 Hours) Vital Signs Temp Pulse Resp BP Pulse Ox O2 Del Method 11/04/23 10:25 36.6 C 70 18 137/65 91 Room Air 11/04/23 08:40 36.4 C L 80 18 148/68 H 93 Room Air 11/04/23 02:50 36.8 C 64 18 163/77 H 93 Room Air Laboratory Results [facility] 11/04/23 06:15 Sodium 142 Potassium 3.2 L Chloride 102 Carbon Dioxide 30 BUN 13 Creatinine 0.97 Glucose 119 H Calcium 6.9 L
--- NOTE | 2023-11-04 14:20 | Discharge Summary ---
Date of Service November 04, 2023 Admission HPI Per Admitting Provider 82-year-old female with past medical history significant for dyslipidemia, surgical hypoparathyroidism, prediabetes, peripheral artery disease, paroxysmal atrial tachycardia, tachybradycardia syndrome, hypertension, moderate aortic regurgitation, first-degree AV block, GERD, CKD stage III, classical migraines, sensorineural hearing loss both ears, polyneuropathy, open-angle glaucoma, presents with abdominal pain and also found to have atrial tachycardia with heart rates in 140s which improved after 1 dose of IV Lopressor. Patient states she drank iced tea today. Around 2 PM she developed abdominal pain. All over the abdomen 8/10 in severity. No nausea. Normal bowel movement in the afternoon. Because of abdominal pain she came to the ER. Currently abdominal pain resolved. She stated she is passing a lot of gas. CAT scan showing possible ileus. UA is pending. Denies any fevers. Denies any burning micturition. Denies any hematuria. Denies any chest pain or shortness of breath. No cough. No headache. Vision is okay , no runny nose or sore throat. Currently resting comfortably and hemodynamics are okay. Patient was recently in the hospital and discharged on 10/29/23 for acute on chronic combined systolic and diastolic CHF and also had atrial tachycardia and paroxysmal atrial fibrillation .During that admission also had cardiac cath with drug-eluting stent to the LAD .Also tachybradycardia syndrome with bradycardia possibly on higher dose of metoprolol and because risk of fall anticoagulation with Eliquis was not started and she is on currently on aspirin and Plavix. Patient was also admitted in the early October with complicated UTI with Pseudomonas bacteremia treated with antibiotics.Patient also had severe sepsis and acute UTI in and was s/p left ureteral stent placement on 09/25/2023 by urology and also found to have bladder mass at the time. Plan for definitive stone surgery and TURBT scheduled for 11/09. past medical history. As mentioned above past surgical history. Cardiac cath and stent placement. Left ureteral stent placement. EGD. EGD with biopsy. Parathyroidectomy. Appendectomy. Cholecystectomy. Lumbar disc excision. Removal of pilonidal cyst. Social history. . Lives with daughter. Quit smoking 1986. No alcohol use. No drug use. Family history. Father had prostate cancer. Mother had uterine cancer. Bro ther had back problems. Daughter has back problems. Admission Exam Per Admitting Provider General- Not in distress. Somewhat hard of hearing. Head- atraumatic Eyes- PERRL. ENT- oropharynx clear Neck- supple, no JVD. Lungs- clear to auscultation no wheezing or crackles. Heart- regular rhythm; no murmur, no gallop. Abdomen- normal bowel sounds, soft, nontender, no distension Extremities- no pretibial edema, no erythema seen Neuro- alert, oriented PERRL, no facial palsy; no dysarthria; moves extremities. Principal Diagnosis Complicated urinary tract infection Atrial tachycardia Paroxysmal atrial fibrillation Discharge Data Allergies Allergy/AdvReac Type Severity Reaction Status Date / Time No Known Allergies Allergy Verified 10/31/23 20:23 Consultations 10/31/23 21:11 ED Decision to Admit Stat 11/01/23 08:00 Consult Cardiology Routine Consult Urology Routine Procedures Performed Laboratory Results WBC 6.70 K/ul (4.8-10.8) 11/03/23 05:57 RBC 3.29 M/uL (4.20-5.40) L 11/03/23 05:57 Hgb 9.8 g/dl (12.0-16.0) L 11/03/23 05:57 Hct 31.7 % (37.0-47.0) L 11/03/23 05:57 MCV 96.4 fL (80.0-100.0) 11/03/23 05:57 MCH 29.8 pg (25.0-34.0) 11/03/23 05:57 MCHC 30.9 g/dL (32.0-36.0) L 11/03/23 05:57 RDW Std Deviation 47.2 fL (36.4-46.3) H 11/03/23 05:57 RDW Coeff of Didi 13.3 % (11.5-14.5) 11/03/23 05:57 Plt Count 229 K/uL (130-400) 11/03/23 05:57 MPV 10.1 fL (9.4-12.4) 11/03/23 05:57 Immature Gran % (Auto) 0.6 % 11/03/23 05:57 Neut % (Auto) 67.4 % 11/03/23 05:57 Lymph % (Auto) 21.3 % 07/23/24 05:57 Henry % (Auto) 7.5 % 11/03/23 05:57 Eos % (Auto) 2.5 % 11/03/23 05:57 Baso % (Auto) 0.7 % 11/03/23 05:57 Neut # (Auto) 4.51 K/uL (1.40-6.50) 11/03/23 05:57 Lymph # (Auto) 1.43 K/uL (1.20-3.40) 11/03/23 05:57 Henry # (Auto) 0.50 K/uL (0.11-0.59) 11/03/23 05:57 Eos # (Auto) 0.17 K/uL (0.00-0.50) 11/03/23 05:57 Baso # (Auto) 0.05 K/uL (0.00-0.20) 11/03/23 05:57 Immature Gran # (Auto) 0.04 K/uL (0.01-0.20) 11/03/23 05:57 PT 12.1 Seconds (9.0-12.0) H 10/31/23 19:32 INR 1.1 (0.9-1.1) 10/31/23 19:32 APTT 28 Seconds (21-31) 10/31/23 19:32 PTT Ratio 1.0 10/31/23 19:32 Sodium 142 mmol/L (136-145) 11/04/23 06:15 Potassium 3.2 mmol/L (3.5-5.1) L 11/04/23 06:15 Chloride 102 mmol/L (98-107) 11/04/23 06:15 Carbon Dioxide 30 mmol/L (21-32) 11/04/23 06:15 Anion Gap 10 (3-11) 11/04/23 06:15 BUN 13 mg/dl (6-23) 11/04/23 06:15 Creatinine 0.97 mg/dl (0.6-1.2) 11/04/23 06:15 Est Cr Clr Drug Dosing 41.1 ml/min 11/04/23 06:15 Est GFR ( Amer) 63.0 ml/min 11/04/23 06:15 Est GFR (Non-Af Amer) 54.4 ml/min 11/04/23 06:15 BUN/Creatinine Ratio 13.4 (10-20) 11/04/23 06:15 Glucose 119 mg/dl (70-99(Fasting)) H 11/04/23 06:15 Lactate 1.5 mmol/L (0.4-2.0) 11/01/23 08:27 Calcium 6.9 mg/dl (8.6-10.3) L 11/04/23 06:15 Phosphorus 4.6 mg/dl (2.5-4.9) 11/02/23 05:41 Magnesium 1.6 mg/dl (1.7-2.4) L 11/04/23 06:15 Total Bilirubin 0.7 mg/dl (0.2-1.0) 10/31/23 19:32 AST 15 U/L (13-39) 10/31/23 19:32 ALT 14 U/L (7-52) 10/31/23 19:32 Alkaline Phosphatase 56 U/L (34-104) 10/31/23 19:32 Troponin I High Sens 116.1 pg/ml (0-14) H* D 11/01/23 10:48 Total Protein 7.3 gm/dl (6.0-8.3) 10/31/23 19:32 Albumin 3.7 gm/dl (3.4-5.0) 10/31/23 19:32 Globulin 3.6 gm/dl (2.5-4.0) 10/31/23 19:32 Albumin/Globulin Ratio 1.0 (0.9-2) 10/31/23 19:32 TSH 1.724 uIu/ml (0.300-4.500) 10/31/23 19:32 Urine Color See Comment 10/31/23 22:51 Urine Appearance Clear (Clear) 10/31/23 22:51 Urine pH Not Reportable 10/31/23 22:51 Ur Specific [place] 1.010 (1.000-1.030) 10/31/23 22:51 Urine Protein Not Reportable 10/31/23 22:51 Urine Glucose (UA) Not Reportable 10/31/23 22:51 Urine Ketones Not Reportable 10/31/23 22:51 Urine Blood Not Reportable 10/31/23 22:51 Urine Nitrite Not Reportable 10/31/23 22:51 Urine Bilirubin Not Reportable 10/31/23 22:51 Urine Urobilinogen Not Reportable 10/31/23 22:51 Ur Leukocyte Esterase Not Reportable 10/31/23 22:51 Urine RBC 3-5 /hpf (0-2) H 10/31/23 22:51 Urine WBC 21-50 /hpf (0-5) H 10/31/23 22:51 Ur Epithelial Cells 0-2 /hpf (0-2) 10/31/23 22:51 Urine Bacteria 4+ (None Seen) H 10/31/23 22:51 Impressions Abdomen/Pelvis CT 10/31/23 19:20 Exam(s): CT ABDOMEN + PELVIS Without Contrast EXAM: CT Abdomen and Pelvis Without Intravenous Contrast CLINICAL HISTORY: Reason for exam: pain, has urinary stent. TECHNIQUE: Axial computed tomography images of the abdomen and pelvis without intravenous contrast. CTDI is 23.2 mGy and DLP is 1179 mGy-cm. Automated exposure control was utilized for the study. A dose lowering technique was utilized adhering to the principles of ALARA. COMPARISON: October 13, 2023 FINDINGS: Lung bases: Unremarkable. No mass. No consolidation. Heart: Mild cardiomegaly and coronary calcification. No pericardial effusion. ABDOMEN: Liver: Unremarkable. Gallbladder and bile ducts: Unremarkable. No calcified stones. No ductal dilation. Pancreas: Unremarkable. No ductal dilation. Spleen: Unremarkable. No splenomegaly. Adrenals: Unremarkable. No mass. Kidneys and ureters: There is a left-sided double-J ureteral stent in place, unchanged in position since previous. No hydronephrosis or ureterolithiasis is seen involving either kidney. Simple cyst measuring 1.5 cm in the right kidney, unchanged. No follow-up is required. Stomach and bowel: There are scattered gas fluid levels throughout fluid-filled distended but nondilated right and transverse colon which is abnormal and suggests ileus. There is diverticulosis of the lower left and sigmoid colon without evidence of acute diverticulitis. No acute focal bowel inflammation, pneumoperitoneum, or abscess is seen. PELVIS: Appendix: No findings to suggest acute appendicitis. Bladder: Unremarkable. No stones. Reproductive: Unremarkable as visualized. ABDOMEN and PELVIS: Intraperitoneal space: See above. Bones/joints: Mild to moderate multilevel degenerative change are seen throughout the spine. No acute fracture or subluxation is seen. Soft tissues: Unremarkable. Vasculature: The abdominal aorta is severely calcified but nondilated measuring 2.4 cm. This is a noncontrast study. Lymph nodes: Unremarkable. No enlarged lymph nodes. IMPRESSION: 1. There is a left-sided double-J ureteral stent in place, unchanged in position since previous. No hydronephrosis or ureterolithiasis is seen involving either kidney. 2. There are scattered gas fluid levels throughout fluid-filled distended but nondilated right and transverse colon which is abnormal and suggests ileus. There is diverticulosis of the lower left and sigmoid colon without evidence of acute diverticulitis. No acute focal bowel inflammation, pneumoperitoneum, or abscess is seen. Electronically signed by: Lee Mandujano MD 10/31/23 21:[address] 10/31/23 19:20 Exam(s): CT HEAD Without Contrast EXAM: CT Head Without Intravenous Contrast CLINICAL HISTORY: Reason for exam: confusion. TECHNIQUE: Axial computed tomography images of the head/brain without intravenous contrast. CTDI is 36.7 mGy and DLP is 546.4 mGy-cm. Automated exposure control was utilized for the study. A dose lowering technique was utilized adhering to the principles of ALARA. COMPARISON: No relevant prior studies available. FINDINGS: Brain: Mild cerebral atrophy and periventricular white matter low density consistent with chronic small vessel disease and/or senescent changes. The brain is otherwise unremarkable. No acute large vessel infarct or intracranial hemorrhage is seen. Ventricles: Mildly dilated. No mass or hemorrhage. Bones/joints: Unremarkable. No acute fracture. Soft tissues: Unremarkable. Sinuses: Unremarkable as visualized. No acute sinusitis. Mastoid air cells: Unremarkable as visualized. No mastoid effusion. IMPRESSION: Mild cerebral atrophy and periventricular white matter low density consistent with chronic small vessel disease and/or senescent changes. The brain is otherwise unremarkable. No acute large vessel infarct or intracranial hemorrhage is seen. Electronically signed by: Lee Mandujano MD 10/31/23 20:59 PM Chest X-Ray 10/31/23 19:21 XR chest 1V portable CLINICAL HISTORY: weakness TECHNIQUE: Single frontal radiograph of the chest was obtained. Comparison: Comparison is made to chest radiograph 10/28/2023 FINDINGS: No lines and tubes are seen. Calcified aortic knob is seen. Lungs are underinflated but clear. No evidence of pleural effusion or pneumothorax. IMPRESSION: No acute chest disease. ACT 112: Negative or not required by law. Electronically signed by: Wander Estevez M.D. 10/31/2023 8:13 PM KUB X-Ray 11/01/23 09:00 KUB HISTORY: ileus COMPARISON: Abdomen and pelvis CT 10/31/2023. KUB 10/16/2023. FINDINGS: The bowel gas pattern is unremarkable. There are no dilated loops of small bowel to suggest an obstruction. No renal calculi. No ureteral calculi. No pneumoperitoneum or pneumatosis. A left ureteral stent appears in good position. Levoscoliosis and degenerative changes within the lumbar spine. Mild gaseous distention of the colon persists. IMPRESSION: 1. No change in the mild gaseous distention of the colon. This favors a mild ileus. 2. A left ureteral stent appears in good position. ACT 112: Negative or not required by law. Electronically signed by: Dakota Cueva M.D. 11/01/2023 8:47 AM Ordered Studies 10/31/23 19:20 CT abd pelvis wo con Stat CT head/brain wo con Stat Hospital Course (1) Complicated UTI (urinary tract infection): 82-year-old female with past medical history significant for dyslipidemia, surgical hypoparathyroidism, prediabetes, peripheral artery disease, paroxysmal atrial tachycardia, tachybradycardia syndrome, hypertension, moderate aortic regurgitation, first-degree AV block, GERD, CKD stage III, classical migraines, sensorineural hearing loss both ears, polyneuropathy, open-angle glaucoma, presents with abdominal pain and also found to have atrial tachycardia with heart rates in 140s which improved after 1 dose of IV Lopressor. Patient states she drank iced tea today. Around 2 PM she developed abdominal pain. All over the abdomen 8/10 in severity. No nausea. Normal bowel movement in the afternoon. Because of abdominal pain she came to the ER. Currently abdominal pain resolved. She stated she is passing a lot of gas. CAT scan showing possible ileus. UA is pending. Denies any fevers. Denies any burning micturition. Denies any hematuria. Denies any chest pain or shortness of breath. No cough. No headache. Vision is okay , no runny nose or sore throat. Currently resting comfortably and hemodynamics are okay. Patient was recently in the hospital and discharged on 10/29/23 for acute on chronic combined systolic and diastolic CHF and also had atrial tachycardia and paroxysmal atrial fibrillation .During that admission also had cardiac cath with drug-eluting stent to the LAD .Also tachybradycardia syndrome with bradycardia possibly on higher dose of metoprolol and because risk of fall anticoagulation with Eliquis was not started and she is on currently on aspirin and Plavix. Patient was also admitted in the early October with complicated UTI with Pseudomonas bacteremia treated with antibiotics.Patient also had severe sepsis and acute UTI in and was s/p left ureteral stent placement on 09/25/2023 by urology and also found to have bladder mass at the time. Plan for definitive stone surgery and TURBT scheduled for 11/09. Complicated urinary tract infection --CT ABD:There is a left-sided double-J ureteral stent in place, unchanged in position since previous. No hydronephrosis or ureterolithiasis is seen involving either kidney. There are scattered gas fluid levels throughout fluid- filled distended but nondilated right and transverse colon which is abnormal and suggests ileus. There is diverticulosis of the lower left and sigmoid colon without evidence of acute diverticulitis. No acute focal bowel inflammation, pneumoperitoneum, or abscess is seen. -- Urine culture grew Klebsiella --Blood cultures negative to date --IV vancomycin, Zosyn transition to ceftriaxone Appreciate urology input Continue Salazar catheter for maximal drainage Patient is planned for definitive stone surgery and TURBT on November 09. Continue Flomax Pyridium as needed Plan to discharge on cefpodoxime to complete 10 day course from 11/02/2023 Patient refused rehab placement Plan to be discharged home Needs follow-up with urology on discharge Generalized weakness PT OT eval Patient refuses rehab placement Plan to be discharged home today (2) Ureteral stent present: History of kidney stone And bladder mass On Flomax Plan for definitive stone surgery and TURBT on 11/09 (3) Diffuse abdominal pain: (4) Paroxysmal atrial fibrillation: Atrial tachycardia Paroxysmal atrial fibrillation Amiodarone discontinued due to prolonged QT Metoprolol increased to 50 mg in the morning, 25 mg in the evening Monitor and repeat electrolytes as needed Appreciate cardiology input (5) Systolic and diastolic CHF, chronic: Recent hospitalization with acute on chronic combined systolic and diastolic heart failure No evidence of fluid overload and or acute CHF during this admission Continue home diuretics Monitor volume status (6) Status post insertion of drug-eluting stent into left anterior descending (LAD) artery: Elevated troponin--chronic, could have type II AR continue aspirin and Plavix (7) Diabetes mellitus type 2, uncomplicated: Continue sliding scale insulin coverage Plan Hypertension on metoprolol succinate, losartan and diuretics monitor Hyperlipidemia on statin DVT Px: Heparin SQ CODE STATUS Full code Total Time Total Time Spent Total Time Spent (In Minutes): 57 minutes Discharge Plan Discharge Items Patient Disposition: Home - Home Health Services Reason For Visit: ABDOMINAL PAIN, ATRIAL TACHYCARDIA Discharge Diagnosis: Complicated urinary tract infection Atrial tachycardia Paroxysmal atrial fibrillation Condition on Discharge: Serious Activity: Per Instructions section Exercise/Sports: Wait until after follow-up appointment Non-emergency contact: Primary Care Provider, Supervisor Coffee and Urologist Call non-emergency contact if: you have any medication questions, your symptoms worsen, your pain is concerning for you and you have a fever Follow-up/Referrals: Jimmy Tiwari MD [Physician] - (You are scheduled for a urology procedure on 11/09. Please contact Dr Tiwari office to confirm and provide instructions for this procedure. ) Hernan Fernández MD [Primary Care Provider] - (Date & Time 11/10/2023 2:00 PM Provider Toya Wu Department [facility] ) Diet: Heart Healthy Add Attending Provider Instructions: Follow-up with your primary care physician Dr. Fernánedz in 1 week Follow-up with a urologist as scheduled Follow-up with your glazing department supervisor Dr. Berger as advised -- Complete the antibiotic course cefpodoxime as prescribed --Your metoprolol dose is increased to 50 mg in the morning, 25 mg in the evening as per your Supervisor Coffee Seek immediate medical attention if your symptoms reoccur or worsen Please take all medications as instructed on discharge list below. Please call if you have any questions or problems. You can reach a [facility] hospitalist on duty at [facility] 24 hours a day by calling [phone] Pending Studies at Discharge: No Stand-Alone Forms: My [facility] [employer], Smoking Cessation Medications and DC Order Prescriptions: New magnesium chloride [Mag 64] 64 mg Tablet,Delayed Release (Dr/Ec) 64 mg PO BID Qty: 60 1RF potassium chloride 20 mEq Tablet,Er Particles/Crystals 20 meq PO QAM Qty: 30 0RF cefpodoxime 200 mg tablet 200 mg PO BID 7 Days Qty: 14 0RF Rx Instructions: must administer with a meal/food Continued tamsulosin [Flomax] 0.4 mg capsule 0.4 mg PO DAILY Qty: 30 0RF latanoprost [Xalatan] 0.005 % drops 1 drp OPB [facility] dorzolamide-timolol [Cosopt] 22.3-6.8 mg/mL drops 1 drp OPB HS duloxetine [Cymbalta] 60 mg capsule,delayed release(DR/EC) 60 mg PO DAILY multivitamin Tablet 1 tab PO QAM omeprazole 20 mg Tablet,Delayed Release (Dr/Ec) 20 mg PO BID aspirin [Ed Low Dose Aspirin] 81 mg tablet,delayed release (DR/EC) 81 mg PO QAM calcitriol 0.5 mcg Capsule 1 mcg PO QAM rosuvastatin 10 mg Tablet 10 mg PO HS furosemide 40 mg Tablet 40 mg PO QAM Qty: 30 0RF clopidogrel 75 mg Tablet 75 mg PO QAM Qty: 30 0RF Vyzulta 0.024 % Drops 1 drp OPB HS losartan 25 mg Tablet 12.5 mg PO QAM 30 Days Qty: 15 0RF Changed phenazopyridine 100 mg tablet 100 mg PO TID PRN (Reason: pain) Qty: 30 0RF metoprolol succinate 25 mg Tablet Extended Release 24 Hr 25 mg PO UD 30 Days Qty: 90 1RF Rx Instructions: Take Metoprolol succinate 50 mg in the morning, 25 mg in the evening Discharge Orders: Discharge Order (Routine); Ordered 11/04/23 Ordered By: Donnie Angelo Admission Data Admit Date/Time: 10/31/23 23:13 Attending Provider: Donnie Angelo Admit Provider: Shayne Hale Primary Care Provider: Hernan Fernández Other Providers: Shayne Hale; Randy Hayes; Colton Ballesteros; Artemio Schmitt; Todd Harris; Toya Sanz; Miguel Leija; Sunshine Unger; Manisha Stacy; Jimmy Tiwari; Jessica Dawson; De Quinteros; Ketan Coates; Eric Majano
[2023-11-04] MEDS ORDERED: MAGNESIUM CHLORIDE W/CALCIUM 64MG DELAYED REL TAB PO SCH (21:00)
[2023-11-04] MEDS ORDERED: METOPROLOL SUCC 25MG EXT REL TAB PO SCH (21:00)
[2023-11-05] MEDS ORDERED: METOPROLOL SUCC 50MG EXT REL TAB PO SCH (09:00)
[2023-11-05] MEDS ORDERED: POTASSIUM CHLORIDE CRTAB 20 MEQ TABCR PO SCH (09:00)
== END 2023-11-04 16:15 | disposition home health service (06) | DRG 690 ==
LOC: ED 18:59 → EDINP 23:13 → SUATTDRO 23:13 → 1E 23:51 → 2S 11-01 23:16

== ENCOUNTER 2023-11-22 16:11 | Inpatient (IN) ==
--- OUTSIDE RECORDS SUMMARY | 2023-11-22 16:17 | External Medical Summary | Summary of Care ---
Author Name Unknown Organization [facility] Address [address] [place] [address] Phone [phone] Care Team Providers Care Paper Folder Name Role Phone Toya Wu DO Primary Care Provider [phone] Reason for Visit * Reason Onset Date Comments Follow Up 11/12/2023 Encounter Details Date Type Department Care Team (Late st Contact Info) Description 11/12/2023 Telephone Family Practice [facility] [address] [place] [address] Toya Wu DO [address] [place] [address] Follow Up Allergies No known active allergiesdocumented as of this encounter (statuses as of 11/19/2023) Medications Medication Sig Dispensed Refills Start Date End Date Status MULTIVITAMIN/MULTIMIN ERAL PO TABS 1 TABLET DAILY 0 11/08/2004 Active ASPIRIN 81 MG PO CHEWIndications:Centr al retinal vein occlusion One pill by mouth once a day with food 100 Tab 5 01/01/2010 Active dorzolamide (TRUSOPT OCUMETER PLUS) 2 % ophthalmic solution Instill 1 Drop into both eyes at bedtime. 01/19/2017 Active Calcitriol 0.5 MCG Oral Capsule (Rocaltrol) [...] A MEAL. 180 Capsule 1 10/29/2022 Active DULoxetine HCl 60 MG Oral Capsule Delayed Release Particles (Cymbalta) TAKE 1 CAPSULE BY MOUTH DAILY (DO NOT CUT, CRUSH OR CHEW). 90 Capsule 12/23/2022 Active Vyzulta 0.024 % Ophthalmic Solution (Latanoprostene Bunod) instill 1 drop into both eyes daily at bedtime 7.5 mL 3 08/14/2023 Active polyethylene glycol 3350 119 gram OR POWD Take 119 g by mouth every evening. As needed for constipation Active Magnesium Chloride 64 MG Oral Tablet Take by mouth 2 times a day. Active Furosemide 40 MG Oral Tablet (Lasix) Take 1 Tablet by mouth in the morning. 10/29/2023 Active Losartan Potassium 25 MG Oral Tablet (Cozaar) Take 0.5 Tablets by mouth in the morning. 10/22/2023 Active Phenazopyridine HCl 100 MG Oral Tablet (Pyridium) Take 1 Tablet by mouth 3 times a day as needed for Pain, Moderate (Bladder Pain). 10/23/2023 Active Tamsulosin HCl 0.4 MG Oral Capsule (Flomax) Take 1 Capsule by mouth in the morning. 10/07/2023 Active Clopidogrel Bisulfate 75 MG Oral Tablet (pLAVix) Take 1 Tablet by mouth in the morning. 10/29/2023 Active Klor-Con M20 20 MEQ Oral Tablet Extended Release Take 1 Tablet by mouth in the morning. 11/04/2023 Active Metoprolol Succinate ER 25 MG Oral Tablet Extended Release 24 Hour (toPROL XL) Take 1 Tablet by mouth at bedtime. 10/22/2023 Active Metoprolol Succinate ER 50 MG Oral Tablet Extended Release 24 Hour (toPROL XL) Take 1 Tablet by mouth in the morning. Active documented as of this encounter (statuses as of 11/19/2023) Active Problems Problem Noted Date Diagnosed Date [...] as of this encounter (statuses as of 11/19/2023) Resolved Problems Problem Noted Date Diagnosed Date [...] as of this encounter (statuses as of 11/19/2023) Immunizations Name Administration Dates Next Due COVID-19 [...] the money to buy more. Never true 11/05/19 24 Within the past 12 months, t he food you bought just didn't last and you didn't have money to get more. Never true 11/05/2023 Childcare Answer Date Recorded Do you feel overwhelmed with taking care of a child, family member or friend? No 11/05/2023 Does your family need help f inding childcare? (Household - for ages 0-17 years) Not on file 11/05/2023 Clothing Answer Date Recorded Have you been unable to get clothing when it was really needed? No 11/05/2023 Is your family able to get c lothes or diapers when needed? (Household - for ages 0-17 years) Not on file 11/05/2023 Personal Safety Answer Date Recorded Do you feel unsafe or have concerns for your saf ety? No 11/05/2023 Do you have concerns for you r family's safety? (Household - for ages 0-17 years) Not on file 11/05/2023 Utilities Answer Date Recorded Do you have trouble paying y our heating, water, or electric bill? No 11/05/2023 Is your family able to pay t he heat, water, or electric bill? (Household - for ages 0-17 years) Not on file 11/05/2023 Does your family have access to good internet? (Household - for ages 0-17 years) Not on file 11/05/2023 Employment Status Answer Date Recorded Are you unemployed or without regular income? No 11/05/2023 Does the household have a re lar source of income? (Household - for ages 0-17 years) Not on file 11/05/2023 Social Connections Answer Date Recorded How often do you feel lonely or isolated from th ose around you? Never 11/05/2023 Financial Resource Strain Answer Date R ecorded Do you have any trouble payi ng for your medications, or do you think you might in the future? No 11/05/2023 Does your family have troubl e paying for medicine? (Household - for ages 0-17 years) Not on file 11/05/2023 Transportation Needs Answer Date Record ed READ ONLY Do you have troubl e getting a ride to medical visits or work? Never True 11/05/2023 Does your family have a hard time getting a ride to doctors visits? (Household - for ages 0-17 years) Not on file 11/05/2023 Has lack of transportation k ept you from medical appointments, meetings, work, or from getting things needed for daily living? Check all that apply. No 11/05/2023 Do you (or your family) have trouble finding or paying for a ride (transportation)? (Household - for ages 0-17 years) Not on file 11/05/2023 Housing Stability Answer Date Recorded Do you currently live in a s helter or have no steady place to sleep at night? No 11/05/2023 READ ONLY Do you think you a re at risk of becoming homeless? No 11/05/2023 Does your family worry about paying for your home or becoming homeless? (Household - for ages 0-17 years) Not on file 0 11/05/2023 Are you homeless or worried that you might be in the future? No 11/05/2023 Are you (or your family) rudolph eless or worried that you might be in the future? (Household - for ages 0-17 years) Not on file Food Insecurity Answer Date Recorded Do you need food for this week? No 11/05/2023 Are you able to get enough f ood for your family? (Household - for ages 0-17 years) Not on file 11/05/2023 Does your family need food t his week? (Household - for ages 0-17 years) Not on file 11/05/2023 Do you always have enough fo od for your family? (Household - for ages 0-17 years) Not on file 11/05/2023 Sex and Gender Information Value Date Recorded Sex Assigned at Female 09/29/2018 2:51 PM EDT Gender Identity Female 09/29/2018 2:51 PM EDT Sexual Orientation Straight 09/29/2018 2: 51 PM EDT Job Start Date Occupation Industry Not on file Not on file Not on file documented as of this encounter Miscellaneous Notes * Telephone Encounter - Rocio Neal LPN - 11/19/2023 12:40 PM EDT Spoke with Ann-Marie, Informed her of patient being eligible for 65 forward. Made her aware of what 65forward offers. Ann-Marie will discuss with her mother and let the office know if she would like to transition to 65 forward. * Telephone Encounter - Elvia Malone LPN - 11/12/2023 12:45 PM EDT Called and LM on daughter's cell of message below and that she would benefit with transitioning to their office. Can call with any questions. * Telephone Encounter - Toya Wu DO - 11/12/2023 12:04 PM EDT Please call pt - with [facility] gold insurance she would be eligible to transition care to forward. Please see if interested Thank you documented in this encounter Plan of Treatment Upcoming Encounters Date Type Department Care Team (Late st Contact Info) Description 01/26/2024 1:30 PM EDT Office Visit Cardiology, [facility] [address] [place] [address] Megan Villarreal CRNP [address] [facility] [place] [address] 03/08/2024 1:20 PM EST Office Visit Family Practice [facility] [address] [address] Toya Wu DO [address] [place] [address] Health Maintenance Due Date Last Done Comments Zoster Vaccines (2 of 3) 04/18/2014 02/21/2014 *BISPHONATE OR OTHER ACCEPTABLE MEDICATION NEEDED FOR OSTEOPOROSIS (REFER TO SMARTSET #1146) 03/26/2019 Adult Wellness Visit 09/30/2019 09/29/2018 DXA Scan 10/24/2022 10/24/2020, 12/13, 11/06/2014, Additional history exists Albumin/Creatinine Ratio 11/15/2022 11/15/2021 COVID-19 Vaccine ( season) 2022 01/08/2022, 02/06/2021, 06/30/2020, Additional history exists Influenza Vaccine (FLU shot) (#1) 2023 12/23/2022, 03/25/2022, 01/22/2021, Additional history exists GFR 02/28/2024 08/28/2023, 02/11, 09/30/2022, Additional history exists HbA1c 08/27/2024 08/28/2023, 02/11, 08/10/2006, Additional history exists Depression Screening 11/04/2024 11/05/2023 DTaP,Tdap,and Td Vaccines (2 - Td or Tdap) 10/09/2030 10/09/2020, 05/03/2010 Pneumococcal Vaccine: 65+ Years Completed 10/27/2014, 10/05/2013 VITAMIN D LEVEL ONCE IN A LIFETIME-USE SMARTSET# 80229 Completed 02/25/2023, 08/07/2022, 02/19/2017, Additional history exists [...] Power of Attor brenna? No Care Teams Paper Folder Relationship Specialty Start Date End Date Toya Wu DO [address] [place] [id number] PCP - General Family Medicine 02/25/23 documented as of this encounter
--- OUTSIDE RECORDS SUMMARY | 2023-11-22 16:18 | External Medical Summary | Summary of Care ---
Author Name Unknown Organization [facility] Address [address] [place] [address] Phone [phone] Care Team Providers Care Welder Journeyman Name Role Phone Toya Wu DO Primary Care Provider Reason for Visit * Reason Onset Date Comments Follow Up 11/12/2023 Encounter Details Date Type Department Care Team (Late st Contact Info) Description 11/12/2023 Telephone Family Practice [facility] [address] [place] [address] Toya Wu DO [address] [place] [address] Follow Up Allergies No known active allergiesdocumented as of this encounter (statuses as of 11/12/2023) Medications Medication Sig Dispensed Refills Start Date [...] as of this encounter (statuses as of 11/12/2023) Active Problems Problem Noted Date Diagnosed Date [...] as of this encounter (statuses as of 11/12/2023) Resolved Problems Problem Noted Date Diagnosed Date [...] as of this encounter (statuses as of 11/12/2023) Immunizations Name Administration Dates Next Due COVID-19 [...] encounter Miscellaneous Notes * Telephone Encounter - Elvia Malone LPN - 11/12/2023 12:45 PM EDT Called and LM on daughter's cell of message below and that she would benefit with transitioning to their office. Can call with any questions. * Telephone Encounter - Toya Wu DO - 11/12/2023 12:04 PM EDT Please call pt - with [facility] insurance she would be eligible to transition care to 65 forward. Please see if interested Thank you documented in this encounter Plan of Treatment Upcoming Encounters Date Type Department Care Team (Late st Contact Info) Description 01/26/2024 1:30 PM EDT Office Visit Cardiology, [facility] [address] [facility] [place] [address] Megan Villarreal CRNP [address] [place] [address] [address] [place] [address] 03/08/2024 1:20 PM EST Office Visit Family Practice [facility] [address] [facility] [place] [address] Toya Wu DO [address] [place] [address] Health Maintenance Due Date Last Done Comments [...] D LEVEL ONCE IN A LIFETIME-USE SMARTSET# [id number] Completed 02/25/2023, 08/07/2022, 02/19/2017, Additional history exists [...] Power of Attor brenna? No Care Teams Welder Journeyman Relationship Specialty Start Date End Date Toya Wu DO [address] [place] [id number] PCP - General Family Medicine 02/25/23 documented as of this encounter
--- NOTE | 2023-11-22 16:35 | Emergency Department Note ---
History of Present Illness General Chief complaint: Pain (Generalized) Stated complaint: ALL OVER PAIN, UTI , KIDNEY STONE STINT Time Seen by Provider: 11/22/23 16:21 History of Present Illness Maximum Pain Intensity: 8 NAME: SONNY REEVES AGE: 82 SEX: F : 1940 ARRIVES VIA: Walk-In INFORMANT: Patient, Son ED PROVIDER(S): MATTHEW Lopez, Candy Wheeler MD The patient is a pleasant 82-year-old female who arrives to the emergency department with her son for evaluation of tachycardia, burning with urination, urgency and frequency. She reports low diffuse abdominal pain, that began approximately a week ago. She denies any nausea or vomiting, she denies any fever. She reports some back pain, and her son does report some confusion. She states she was admitted in October, for a urinary tract infection, with kidney stone and stent placement. She reports she does not believe she passed a kidney stone, and states she took a full 10 days of oral antibiotics after the event. She reports she believes the urinary tract infection is returning at this time, as she is having the same symptoms she was previously having. She reports slight weakness, and an overall feeling of unwell. Home Medications Medication Instructions Recorded Confirmed Type multivitamin 1 tab PO QAM 05/03/18 11/22/23 History omeprazole 20 mg tablet,delayed 20 mg PO BID 05/03/18 11/22/23 History release dorzolamide 22.3 mg-timolol 6.8 1 drp OPB HS 06/01/18 11/22/23 History mg/mL eye drops (Cosopt) duloxetine 60 mg capsule,delayed 60 mg PO QAM 06/01/18 11/22/23 History release (Cymbalta) latanoprost 0.005 % eye drops 1 drp OPB PENDING SALE TO [facility] 06/01/18 11/22/23 History (Xalatan) aspirin 81 mg tablet,delayed 81 mg PO QAM 06/24/20 11/22/23 History release (Ed Low Dose Aspirin) calcitriol 0.5 mcg capsule 1 mcg PO QAM 09/25/23 11/22/23 History rosuvastatin 10 mg tablet 10 mg PO HS 09/25/23 11/22/23 History latanoprostene bunod 0.024 % eye 1 drp OPB HS 10/13/23 11/22/23 History drops (Vyzulta) clopidogrel 75 mg tablet 75 mg PO QAM #30 tabs 10/29/23 11/22/23 Rx furosemide 40 mg tablet 40 mg PO QAM #30 tabs 10/29/23 11/22/23 Rx magnesium chloride 64 mg 64 mg PO BID #60 tabs 11/04/23 11/22/23 Rx (magnesium chloride) tablet,delayed release (Mag 64) phenazopyridine 100 mg tablet 100 mg PO TID PRN pain #30 tabs 11/04/23 11/22/23 Rx potassium chloride 20 mEq 20 meq PO QAM #30 tabs 11/04/23 11/22/23 Rx tablet,extended release(part/cryst) metoprolol succinate 25 mg See Rx Instructions .Route .COMPLEX 11/05/23 11/22/23 History tablet,extended release 24 hr tamsulosin 0.4 mg capsule (Flomax) 0.4 mg PO QAM kidney stone 11/05/23 11/22/23 History losartan 25 mg tablet 12.5 mg PO DAILY 11/22/23 11/22/23 History Allergies Allergy/AdvReac Type Severity Reaction Status Date / Time No Known Allergies Allergy Verified 11/22/23 17:53 Past Med/Surg History Problem List (Updated 11/23/23 @ 00:38 by MATTHEW Barros) Urinary tract infection (Acute) Acute UTI Encounter for pre-operative examination Prolonged QT interval Hypocalcemia Moderate aortic regurgitation Systolic and diastolic CHF, chronic Hypokalemia (Acute) Status post insertion of drug-eluting stent into left anterior descending (LAD) artery Paroxysmal atrial fibrillation Ureteral stent present Gram-negative bacteremia Premature atrial contractions Severe sepsis Hypomagnesemia (Acute) Somnolence (Acute) Bladder mass Left flank pain Hydronephrosis Left ureteral calculus Tachy-bob syndrome Wenckebach Sinus tachycardia H/O parathyroidectomy (Chronic) "09/26/13" Neuropathy (Chronic) Osteoporosis (Chronic) Vitamin D deficiency (Chronic) Dyslipidemia (Chronic) Migraine (Chronic) GERD (gastroesophageal reflux disease) (Chronic) HTN (hypertension) (Chronic) Medical History CAD (coronary artery disease) Stent 10/26/23, [facility] Diabetes mellitus type 2, uncomplicated Per [facility] records Atrial tachycardia, paroxysmal Hx of migraines Wenckebach Follows with S cardio Hypertension GERD (gastroesophageal reflux disease) Congestive heart failure Atrial fibrillation Follows with [facility] cardio Nephrolithiasis History of hydronephrosis Glaucoma Bilateral tinnitus Neuropathy Feet, legs Hyperlipidemia H/O parathyroidectomy Surgical History Hx of appendectomy History of esophagogastroduodenoscopy (EGD) Hx of colonoscopy S/P cystoscopy with ureteral stent placement 09/2023, [facility] Hx of heart artery stent Stent x1, [facility] (10/26/23) Hx of cardiac cath Stent x1, [facility] (10/26/23) Hx of bilateral cataract extraction Hx of cholecystectomy History of back surgery , 1984 Family History Other Cancer Social History Smoking Status: Never smoker Tobacco Type: Cigarettes Second Hand Exposure: No; Do You Dip or Chew Tobacco: No; Hx Alcohol Use: No Hx Substance Use: No Preferred Language: Japanese Communication Ability: Effective Visual Impairment: No Limitations Hearing Ability: Normal Microfilm Processor Required: No Beliefs That Will Affect Care: None marital status: / Current Living Situation: Family Current Living Situation Comment: lives with daughter How many Children do You have: 2 Feels Safe at Home: Yes Assistive Devices: Glasses and Walker Physical Exam Vital Signs Vital Signs - 24 hr 11/22/23 16:15 11/22/23 16:46 11/22/23 16:46 Temperature 36.2 C L Temperature Source Temporal Artery Scan Pulse Rate 120 H Pulse Rate from SpO2 Sensor Pulse Rhythm Regular Pulse Strength Normal Respiratory Rate 18 Respiratory Effort / Characteristics Non-Labored Respiratory Depth Normal Blood Pressure 120/67 158/81 H Blood Pressure Mean 84 125 Blood Pressure Position Sitting Pulse Oximetry 95 95 Oxygen Delivery Method Room Air Room Air Sepsis Recent Fever Within 48 Hours No Sepsis New/Unexplained Change in Mental Status No Sepsis Action Taken by Nursing No Action Required 11/22/23 16:46 11/22/23 16:48 11/22/23 16:51 Temperature Temperature Source Pulse Rate 103 H 113 H Pulse Rate from SpO2 Sensor 108 H 112 H Pulse Rhythm Pulse Strength Respiratory Rate 18 21 Respiratory Effort / Characteristics Respiratory Depth Blood Pressure 158/81 H Blood Pressure Mean 125 Blood Pressure Position Pulse Oximetry 95 93 Oxygen Delivery Method Sepsis Recent Fever Within 48 Hours Sepsis New/Unexplained Change in Mental Status Sepsis Action Taken by Nursing 11/22/23 16:54 11/22/23 17:00 11/22/23 17:00 Temperature Temperature Source Pulse Rate 100 H Pulse Rate from SpO2 Sensor 106 H Pulse Rhythm Pulse Strength Respiratory Rate 24 Respiratory Effort / Characteristics Respiratory Depth Blood Pressure 125/79 125/79 Blood Pressure Mean 99 99 Blood Pressure Position Pulse Oximetry 94 Oxygen Delivery Method Sepsis Recent Fever Within 48 Hours Sepsis New/Unexplained Change in Mental Status Sepsis Action Taken by Nursing 11/22/23 17:02 11/22/23 17:06 11/22/23 17:12 Temperature Temperature Source Pulse Rate 108 H 106 H 105 H Pulse Rate from SpO2 Sensor 106 H 105 H Pulse Rhythm Pulse Strength Respiratory Rate 17 16 Respiratory Effort / Characteristics Respiratory Depth Blood Pressure Blood Pressure Mean Blood Pressure Position Pulse Oximetry 96 96 Oxygen Delivery Method Sepsis Recent Fever Within 48 Hours Sepsis New/Unexplained Change in Mental Status Sepsis Action Taken by Nursing 11/22/23 17:24 11/22/23 17:30 11/22/23 17:57 Temperature Temperature Source Pulse Rate 88 103 H 98 H Pulse Rate from SpO2 Sensor 82 104 H 97 H Pulse Rhythm Pulse Strength Respiratory Rate 19 17 19 Respiratory Effort / Characteristics Respiratory Depth Blood Pressure Blood Pressure Mean Blood Pressure Position Pulse Oximetry 95 97 95 Oxygen Delivery Method Sepsis Recent Fever Within 48 Hours Sepsis New/Unexplained Change in Mental Status Sepsis Action Taken by Nursing 11/22/23 18:36 11/22/23 18:45 11/22/23 18:54 Temperature Temperature Source Pulse Rate 99 H 101 H 94 H Pulse Rate from SpO2 Sensor 96 H 100 H 98 H Pulse Rhythm Pulse Strength Respiratory Rate 20 19 19 Respiratory Effort / Characteristics Respiratory Depth Blood Pressure Blood Pressure Mean Blood Pressure Position Pulse Oximetry 96 96 95 Oxygen Delivery Method Sepsis Recent Fever Within 48 Hours Sepsis New/Unexplained Change in Mental Status Sepsis Action Taken by Nursing 11/22/23 19:00 11/22/23 19:30 11/22/23 20:00 Temperature Temperature Source Pulse Rate 78 93 H 88 Pulse Rate from SpO2 Sensor 69 91 H 99 H Pulse Rhythm Pulse Strength Respiratory Rate 18 16 18 Respiratory Effort / Characteristics Respiratory Depth Blood Pressure 150/89 H 141/75 H Blood Pressure Mean 109 95 Blood Pressure Position Pulse Oximetry 95 92 94 Oxygen Delivery Method Room Air Room Air Sepsis Recent Fever Within 48 Hours Sepsis New/Unexplained Change in Mental Status Sepsis Action Taken by Nursing 11/22/23 20:55 11/22/23 21:22 Temperature Temperature Source Pulse Rate 93 H 85 Pulse Rate from SpO2 Sensor Pulse Rhythm Pulse Strength Respiratory Rate Respiratory Effort / Characteristics Respiratory Depth Blood Pressure Blood Pressure Mean Blood Pressure Position Pulse Oximetry Oxygen Delivery Method Sepsis Recent Fever Within 48 Hours Sepsis New/Unexplained Change in Mental Status Sepsis Action Taken by Nursing VITALS: Vitals are noted on the nurse's note and reviewed by myself. Vital signs stable. GENERAL: 82-year-old female, in no acute distress, nondiaphoretic, well- developed well-nourished. SKIN: The skin was without rashes, erythema, edema, or bruising. HEAD: Normocephalic atraumatic. HEART: Regular rate and rhythm without murmurs gallops or rubs. LUNGS: Clear to auscultation bilaterally without wheezes, rales or rhonchi. No retractions or accessory muscle use. ABDOMEN: Positive bowel sounds x 4. Tenderness to palpation diffuse low abdomen, negative rebound tenderness or guarding. No masses present. MUSCULOSKELETAL: No muscle atrophy, erythema, or edema noted. Full range of motion without joint tenderness in all extremities. No tenderness to palpation. Bilateral CVA tenderness to palpation. NEURO: Patient was alert and oriented to person place and time. No focal neurological deficits. Course Administered Medications Discontinued Medications Sodium Chloride (Nss) 500 mls @ 999 mls/hr IV .Q31M STA Stop: 11/22/23 17:05 Last Infusion: 11/22/23 17:16 Dose: Infused Documented By: Admin: 11/22/23 16:43 Dose: 999 mls/hr Documented By: KISHORE Ceftriaxone Sodium (Rocephin) 1,000 mg in 50 mls @ 100 mls/hr IV NOW STA Stop: 11/22/23 17:50 Last Infusion: 11/22/23 18:26 Dose: Infused Documented By: Admin: 11/22/23 17:54 Dose: 100 mls/hr Documented By: KISHORE Ioversol (Optiray 320 100ml) 94 ml IV ONCE ONE Stop: 11/22/23 17:49 Last Admin: 11/22/23 17:49 Dose: 94 ml Documented By: LACHO Morphine Sulfate (Morphine Sulfate 4 Mg/Ml 1 Ml Carp\\Vial) 4 mg IV NOW STA Stop: 11/22/23 16:36 Last Admin: 11/22/23 16:44 Dose: 4 mg Documented By: OAC Medical Decision Making Differential Diagnosis Appendicitis, infections, diverticulitis, UTI, obstruction, mesenteric ischemia, aortic pathology, inflammatory bowel disease, renal colic, PUD, pancreatitis, biliary pathology, hernia, volvulus, constipation, as well as other pathologies. Medical Records Attestation: I reviewed the patient's medical records. Home Medications Current Medication List: was personally reviewed by me Laboratory Data Attestation: I reviewed the patient's lab results. CBC shows no leukocytosis with a stable hemoglobin and hematocrit, CMP is unremarkable, troponin negative, lipase negative, urinalysis shows not reportable leukocyte esterase, and nitrites, however there are greater than 50 WBCs, with positive bacteria, consistent with infection. 11/22/23 16:40 11/22/23 16:40 Lab Results 11/22/23 11/22/23 Range/Units 16:28 16:40 WBC 9.27 (4.8-10.8) K/ul RBC 4.40 (4.20-5.40) M/uL Hgb 12.8 (12.0-16.0) g/dl Hct 40.0 (37.0-47.0) % MCV 90.9 (80.0-100.0) fL MCH 29.1 (25.0-34.0) pg MCHC 32.0 (32.0-36.0) g/dL RDW Std Deviation 43.8 (36.4-46.3) fL RDW Coeff of Didi 13.1 (11.5-14.5) % Plt Count 348 (130-400) K/uL MPV 9.2 L (9.4-12.4) fL Immature Gran % (Auto) 0.5 % Neut % (Auto) 57.5 % Lymph % (Auto) 29.0 % [place] % (Auto) 9.3 % Eos % (Auto) 3.1 % Baso % (Auto) 0.6 % Neut # (Auto) 5.32 (1.40-6.50) K/uL Lymph # (Auto) 2.69 (1.20-3.40) K/uL [place] # (Auto) 0.86 H (0.11-0.59) K/uL Eos # (Auto) 0.29 (0.00-0.50) K/uL Baso # (Auto) 0.06 (0.00-0.20) K/uL Immature Gran # (Auto) 0.05 (0.01-0.20) K/uL Sodium 139 (136-145) mmol/L Potassium 3.7 (3.5-5.1) mmol/L Chloride 100 (98-107) mmol/L Carbon Dioxide 28 (21-32) mmol/L Anion Gap 11 (3-11) BUN 20 (6-23) mg/dl Creatinine 1.09 (0.6-1.2) mg/dl Est Cr Clr Drug Dosing Not Reportable Est GFR ( Amer) 54.7 ml/min Est GFR (Non-Af Amer) 47.2 ml/min BUN/Creatinine Ratio 18.3 (10-20) Glucose 106 H (70-99(Fasting)) mg/dl Lactate 2.0 (0.4-2.0) mmol/L Calcium 10.0 (8.6-10.3) mg/dl Total Bilirubin 0.4 (0.2-1.0) mg/dl AST 13 (13-39) U/L ALT 10 (7-52) U/L Alkaline Phosphatase 62 (34-104) U/L Troponin I High Sens 10.4 (0-14) pg/ml Total Protein 7.5 (6.0-8.3) gm/dl Albumin 3.8 (3.4-5.0) gm/dl Globulin 3.7 (2.5-4.0) gm/dl Albumin/Globulin Ratio 1.0 (0.9-2) Lipase 45 (11-82) U/L Urine Color See Comment Urine Appearance Turbid A (Clear) Urine pH Not Reportable Ur Specific [place] 1.017 (1.000-1.030) Urine Protein Not Reportable Urine Glucose (UA) Not Reportable Urine Ketones Not Reportable Urine Blood Not Reportable Urine Nitrite Not Reportable Urine Bilirubin Not Reportable Urine Urobilinogen Not Reportable Ur Leukocyte Esterase Not Reportable Urine RBC 3-5 H (0-2) /hpf Urine WBC >50 H (0-5) /hpf Ur Epithelial Cells 3-5 H (0-2) /hpf Urine Bacteria 1+ H (None Seen) Urine Yeast Present A (None Prsent) Imaging Data Radiologist's Impression: Abdomen/Pelvis CT 11/22/23 16:36 CT OF THE ABDOMEN AND PELVIS WITH CONTRAST CLINICAL HISTORY: Diffuse abdominal pain. Tenderness to palpation. COMPARISON STUDY: CT of the abdomen and pelvis October 31, 2023. KUB November 01, 2023. TECHNIQUE: Following IV administration of 94 mL of Optiray, axial images of the abdomen and pelvis were obtained from the lung bases to the proximal femurs. Images were reviewed in the axial, sagittal, and coronal planes. IV contrast was administered without complication. Automated exposure control was utilized for the study. A dose lowering technique was utilized adhering to the principles of ALARA. CT DOSE: 799.46 mGy.cm FINDINGS: Subpleural opacities within the lower lungs represent atelectasis. There is no pneumatosis, free air or portal venous gas. Mild biliary ductal dilatation is similar to prior exam and likely related to cholecystectomy. Diverticulum of the second portion of the duodenum is noted. Spleen, adrenal glands and pancreas are unremarkable. Low-attenuation bilateral renal lesions favor cysts. A few subcentimeter renal lesions are too small to characterize but are likely benign. There is no right hydronephrosis. Mild left hydronephrosis is noted with mild urothelial thickening of the left collecting system. No ureteral calculi are identified. A few small bilateral renal calculi measure up to 2 mm. There is moderate renal cortical thinning. There is no evidence for a bowel obstruction. Colonic diverticulosis without evidence for acute diverticulitis. Infrarenal abdominal aorta is ectatic. There is extensive plaque within the abdominal aorta. There are no acute fractures within the visualized skeletal structures. Lumbar spine levoscoliosis is incidentally noted. There is mild bladder wall thickening. IMPRESSION: 1. Left ureteral stent in place. Mild left hydronephrosis. No ureteral calculi. 2. Urothelial thickening of the left collecting system and bladder wall thickening. The findings could be correlated with urinalysis to exclude an infectious process. 3. A few small bilateral renal calculi. 4. Colonic diverticulosis. No evidence for acute diverticulitis. 5. No bowel obstruction. ACT 112: Negative or not required by law. Electronically signed by: Kevin Marvin M.D. 11/22/2023 6:02 PM ECG Data Attestation: I personally reviewed and interpreted this ECG as follows: Indication: + tachycardia Rate (beats per minute): 107 Rhythm: + sinus tachycardia ECG Intervals/blocks: + First degree AV block and + Prolonged QT ECG [place]: + Normal ECG ST segments: + Normal ST segments and + T-wave inversions (anterolateral leads) Comparison ECG Date: from (11/03) Change: the following changes noted (increase in rate, with decreased QT and improvement in T wave inversions. ) Blood Pressure Blood Pressure Findings: Elevated blood pressure Blood Pressure Disposition: elevated BP felt to be situational MDM Narrative The patient is a pleasant 82-year-old female who arrives to the emergency department for the above-stated complaint. Upon examination the patient is exhibiting similar symptoms from her recent hospitalization. A saline lock was established, CBC, CMP, lipase, troponin, urinalysis were obtained. CBC shows no leukocytosis with a stable hemoglobin and hematocrit, CMP is unremarkable, troponin negative, lipase negative, urinalysis shows not reportable leukocyte esterase, and nitrites, however there are greater than 50 WBCs, with positive bacteria, consistent with infection. The patient was provided 500 cc bolus of normal saline for the tachycardia that was present. She was also provided 1 g of IV Rocephin after discussion with the ED pharmacist based on the patient's previous urine culture which grew Klebsiella. I spoke with the patient regarding hospital admission for failed outpatient oral treatment, and the need for IV antibiotics and hospitalization, which she was agreeable to. Case management was contacted who facilitated [facility] with [facility]. Dr. Hale from the [facility] agreed to accept the patient for admission. Please refer to his documentation for further patient workup and care. Continuous monitor technician: Order was placed for continuous monitor technician. Patient was placed on the monitor technician. Patient was noted to be in sinus tachycardia at an initial rate of 103 bpm. The patient's case was discussed with Dr. Wheeler, who agreed with my evaluation and treatment plan. Impression & Plan Urinary tract infection Discharge Plan Visit Data Chief Complaint: Pain (Generalized) Stated Complaint: ALL OVER PAIN, UTI , KIDNEY STONE STINT ED Provider: Candy Wheeler ED Midlevel Provider: Debbie Su Discharge Problem: Urinary tract infection Patient Disposition: Admitted As Inpatient Discharge Instructions Interventions: ED Discharge Assessment Last Done: 11/22/23 23:37 Discharge Problem: Urinary tract infection Qualifiers: Urinary tract infection type: acute cystitis Hematuria presence: with hematuria Qualified Code(s): N30.01 - Acute cystitis with hematuria
[2023-11-22] MEDS: SODIUM CHLORIDE 0.9% 500 ML IV STA (16:43)
[2023-11-22] MEDS: MoRPHine SULFATE 4 MG/ML 1 ML CARP\\VIAL IV STA (16:44)
[2023-11-22 16:57] LABS: Basophils # (auto) 0.06 K/uL (0.00-0.20); Basophils % (auto) 0.6 %; Eosinophils # (auto) 0.29 K/uL (0.00-0.50); Eosinophils % (auto) 3.1 %; Hemoglobin 12.8 g/dl (12.0-16.0); Immature Granulocytes # (auto) 0.05 K/uL (0.01-0.20); Immature Granulocytes % (auto) 0.5 %; Lymphocytes # (auto) 2.69 K/uL (1.20-3.40); Mean Corpuscular Hemoglobin 29.1 pg (25.0-34.0); Mean Corpuscular Volume 90.9 fL (80.0-100.0); Mean Platelet Volume 9.2 fL (9.4-12.4); Monocytes # (auto) 0.86 K/uL (0.11-0.59); Monocytes % (auto) 9.3 %; Neutrophils # (auto) 5.32 K/uL (1.40-6.50); Neutrophils % (auto) 57.5 %; Platelet Count 348 K/uL (130-400); RDW Coefficient of Variation 13.1 % (11.5-14.5); RDW Standard Deviation 43.8 fL (36.4-46.3); White Blood Count 9.27 K/ul (4.8-10.8)
[2023-11-22 17:07] LABS: Appearance Urine Turbid (Clear)
[2023-11-22 17:14] LABS: Bacteria Urine 1+ (None Seen); WBC Urine >50 /hpf (0-5)
[2023-11-22 17:15] LABS: Specific Gravity Urine 1.017 (1.000-1.030)
[2023-11-22 17:26] LABS: Alanine Aminotransferase 10 U/L (7-52); Albumin Level 3.8 gm/dl (3.4-5.0); Alkaline Phosphatase 62 U/L (34-104); Anion Gap 11 (3-11); Aspartate Aminotransferase 13 U/L (13-39); BUN Creatinine Ratio 18.3 (10-20); Bilirubin,Total 0.4 mg/dl (0.2-1.0); Blood Urea Nitrogen 20 mg/dl (6-23); Carbon Dioxide 28 mmol/L (21-32); Chloride 100 mmol/L (98-107); Est GFR (African American) 54.7 ml/min; Est GFR (Non-African American) 47.2 ml/min; Globulin 3.7 gm/dl (2.5-4.0); Glucose 106 mg/dl (70-99(Fasting)); Lipase 45 U/L (11-82); Potassium 3.7 mmol/L (3.5-5.1); Sodium 139 mmol/L (136-145); Total Protein 7.5 gm/dl (6.0-8.3)
[2023-11-22 17:32] LABS: Troponin I High Sensitivity 10.4 pg/ml (0-14)
[2023-11-22] MEDS: OPTIRAY 320 100ml IV ONE (17:49)
[2023-11-22] MEDS: cefTRIAXone SODIUM 1,000 MG/50 ML BAG IV STA (17:54)
--- NOTE | 2023-11-22 18:03 | CT Scan Report ---
CT OF THE ABDOMEN AND PELVIS WITH CONTRAST CLINICAL HISTORY: Diffuse abdominal pain. Tenderness to palpation. COMPARISON STUDY: CT of the abdomen and pelvis October 31, 2023. KUB November 01, 2023. TECHNIQUE: Following IV administration of 94 mL of Optiray, axial images of the abdomen and pelvis we re obtained from the lung bases to the proximal femurs. Images were reviewed in the axial, sagittal, and coronal planes. IV contrast was administered without complication. Automated exposure control wa s utilized for the study. A dose lowering technique was utilized adhering to the principles of ALARA . CT DOSE: 799.46 mGy.cm FINDINGS: Subpleural opacities within the lower lungs represent atelectasis. There is no pneumatosis, free air or portal venous gas. Mild biliary ductal dilatation is similar to prior exam and likely re lated to cholecystectomy. Diverticulum of the second portion of the duodenum is noted. Spleen, adrena l glands and pancreas are unremarkable. Low-attenuation bilateral renal lesions favor cysts. A few chacon bcentimeter renal lesions are too small to characterize but are likely benign. There is no right hydr onephrosis. Mild left hydronephrosis is noted with mild urothelial thickening of the left collecting system. No ureteral calculi are identified. A few small bilateral renal calculi measure up to 2 mm. T here is moderate renal cortical thinning. There is no evidence for a bowel obstruction. Colonic diver ticulosis without evidence for acute diverticulitis. Infrarenal abdominal aorta is ectatic. There is extensive plaque within the abdominal aorta. There are no acute fractures within the visualized skele santosh structures. Lumbar spine levoscoliosis is incidentally noted. There is mild bladder wall thickeni ng. IMPRESSION: 1. Left ureteral stent in place. Mild left hydronephrosis. No ureteral calculi. 2. Urothelial thickening of the left collecting system and bladder wall thickening. The findings coul d be correlated with urinalysis to exclude an infectious process. 3. A few small bilateral renal calculi. 4. Colonic diverticulosis. No evidence for acute diverticulitis. 5. No bowel obstruction. ACT 112: Negative or not required by law. Electronically signed by: Kevin Marvin M.D. 11/22/2023 6:02 PM
--- NOTE | 2023-11-22 19:58 | Emergency Department Note ---
ED Visit Note I was consulted by the Advanced Practice Provider, MATTHEW Lopez. I performed a substantive portion of the visit. This includes aspects of: History: Patient is a 82-year-old female presenting with generalized pain. She states she is having pain in her back and dysuria. She was recently diagnosed with a kidney stone and UTI and had a stent placed in her left ureter in early October. Patient denies any fevers. MDM: - Laboratory workup interpreted by myself showed normal WBC; stable fredy ctrolytes; normal lactate; normal lipase; normal troponin - UA showed evidence of infection - CT abdomen/pelvis with IV contrast showed left ureteral stent in place with mild left hydro. No calculus noted. - Patient given 500 cc normal saline and 4 mg IV morphine on arrival. She is given 1 g IV Rocephin for infection treatment. - Patient ot be admitted to hospitalist service for further evaluation and management. .
--- NOTE | 2023-11-22 22:30 | History & Physical Report ---
Date of Service November 22, 2023 Assessment & Plan (1) Acute UTI: Plan: 82-year-old female with past medical history significant for dyslipidemia, surgical hypoparathyroidism, prediabetes, peripheral artery disease, paroxysmal atrial tachycardia, tachybradycardia syndrome, hypertension, moderate aortic regurgitation, first-degree AV block, GERD, CKD stage III, classical migraines, sensorineural hearing loss both ears, polyneuropathy, open-angle glaucoma, pres ents with abdominal pain and back pain and burning micturition and found to have recurrent UTI. Patient currently resting comfortably. States had headache earlier in the morning but currently subsided. No runny nose or sore throat. No difficulty swallowing. No chest pain or shortness of breath. Currently no nausea. Moving bowels okay. Denies any blood in the stools or black stools. Denies any hematuria. Hemodynamics are okay. Recent admissions and medical issues: In September patient had severe sepsis and acute UTI and was s/p left ureteral stent placement on 09/25/2023 by urology and also found to have bladder mass at that time. She was scheduled for repeat surgery on 11/01 but patient ended up in the hospital with acute on chronic combined systolic and diastolic CHF and also had atrial tachycardia and paroxysmal atrial fibrillation and during that admission patient also had cardiac cath with drug-eluting stent to LAD. Patient also found to have early tachybradycardia syndrome possible on a higher dose of metoprolol .Because of fall risk anticoagulation with Eliquis was not started currently on aspirin and Plavix. Patient was again admitted on 10/31/2023 with recurrent complicated urinary tract infection. Cultures grew Klebsiella she was discharged on cefpodoxime .During that admission she also had atrial tachycardia initially amiodarone was started but because of prolonged QT it was discontinued and metoprolol dose was increased. And there was a plan for definitive stone surgery and TURP on 11/09. Patient followed-up with urology on 11/11/23 and since cardiology recommended at least 4 weeks of aspirin and Plavix for drug-eluting stent from stent placement and seems daughter told urology that patient has not been on these medications it was decided to continue aspirin and Plavix for next couple of weeks and hold Plavix 5 days prior to surgery. Urology planning to see her in next 3 to 4 weeks. Acute complicated UTI Recurrent UTI as mentioned in H&P Will follow cultures Empiric Rocephin Urology consult Gentle fluids Close monitor History of ureteral stent History of kidney stone History of bladder mass On Flomax Plan for definitive surgery and TURBT in few weeks Atrial tachycardia Paroxysmal atrial fibrillation Early tachybradycardia syndrome Currently on metoprolol which be continued Not on Eliquis because of fall risk On aspirin and Plavix Close monitor History of CAD status post drug-eluting stent On aspirin and Plavix and beta-sav and statin Chronic systolic and diastolic CHF on Lasix potassium supplements Will monitor Hypertension On metoprolol and Lasix and losartan Will monitor Hyperlipidemia On statin. Prediabetes Diabetic diet Follow HbA1c levels Ckd stage 3 cr 1.09 will follow labs DVT prophylaxis SCDs for now hep sub q if no interventions planned Disposition Med/telemetry Full code. History of Present Illness Chief Complaint: Recurrent UTI Primary Care Provider: Hernan Fernández MD 82-year-old female with past medical history significant for dyslipidemia, surgical hypoparathyroidism, prediabetes, peripheral artery disease, paroxysmal atrial tachycardia, tachybradycardia syndrome, hypertension, moderate aortic regurgitation, first-degree AV block, GERD, CKD stage III, classical migraines, sensorineural hearing loss both ears, polyneuropathy, open-angle glaucoma, presents with abdominal pain and back pain and burning micturition and found to have recurrent UTI. Patient currently resting comfortably. States had headache earlier in the morning but currently subsided. No runny nose or sore throat. No difficulty swallowing. No chest pain or shortness of breath. Currently no nausea. Moving bowels okay. Denies any blood in the stools or black stools. Denies any hematuria. Hemodynamics are okay. Recent admissions and medical issues: In September patient had severe sepsis and acute UTI and was s/p left ureteral stent placement on 09/25/2023 by urology and also found to have bladder mass at that time. She was scheduled for repeat surgery on 11/01 but patient ended up in the hospital with acute on chronic combined systolic and diastolic CHF and also had atrial tachycardia and paroxysmal atrial fibrillation and during that admission patient also had cardiac cath with drug-eluting stent to LAD. Patient also found to have early tachybradycardia syndrome possible on a higher dose of metoprolol .Because of fall risk anticoagulation with Eliquis was not started currently on aspirin and Plavix. Patient was again admitted on 10/31/2023 with recurrent complicated urinary tract infection. Cultures grew Klebsiella she was discharged on cefpodoxime .During that admission she also had atrial tachycardia initially amiodarone was started but because of prolonged QT it was discontinued and metoprolol dose was increased. And there was a plan for definitive stone surgery and TURP on 11/09. Patient followed-up with urology on 11/11/23 and since cardiology recommended at least 4 weeks of aspirin and Plavix for drug-eluting stent from stent placement and seems daughter told urology that patient has not been on these medications it was decided to continue aspirin and Plavix for next couple of weeks and hold Plavix 5 days prior to surgery. Urology planning to see her in next 3 to 4 weeks. Past medical history. As mentioned above Past surgical history. Cardiac cath and stent placement. Left ureteral stent placement. EGD. EGD with biopsy. Parathyroidectomy. Appendectomy. Cholecystectomy. Lumbar disc excision. Removal of pilonidal cyst. Social history. . Lives with daughter. Quit smoking 1986. No alcohol use. No drug use. Family history. Father had prostate cancer. Mother had uterine cancer. Brother had back problems. Daughter has back problems. Allergies Allergy/AdvReac Type Severity Reaction Status Date / Time No Known Allergies Allergy Verified 11/22/23 17:53 Home Medications Medication Instructions Recorded Confirmed Type multivitamin 1 tab PO QAM 05/03/18 11/22/23 History omeprazole 20 mg tablet,delayed 20 mg PO BID 05/03/18 11/22/23 History release dorzolamide 22.3 mg-timolol 6.8 1 drp OPB HS 06/01/18 11/22/23 History mg/mL eye drops (Cosopt) duloxetine 60 mg capsule,delayed 60 mg PO QAM 06/01/18 11/22/23 History release (Cymbalta) latanoprost 0.005 % eye drops 1 drp OPB [facility] 06/01/18 11/22/23 History (Xalatan) aspirin 81 mg tablet,delayed 81 mg PO QAM 06/24/20 11/22/23 History release (Ed Low Dose Aspirin) calcitriol 0.5 mcg capsule 1 mcg PO QAM 09/25/23 11/22/23 History rosuvastatin 10 mg tablet 10 mg PO HS 09/25/23 11/22/23 History latanoprostene bunod 0.024 % eye 1 drp OPB HS 10/13/23 11/22/23 History drops (Vyzulta) clopidogrel 75 mg tablet 75 mg PO QAM #30 tabs 10/29/23 11/22/23 Rx furosemide 40 mg tablet 40 mg PO QAM #30 tabs 10/29/23 11/22/23 Rx magnesium chloride 64 mg 64 mg PO BID #60 tabs 11/04/23 11/22/23 Rx (magnesium chloride) tablet,delayed release (Mag 64) phenazopyridine 100 mg tablet 100 mg PO TID PRN pain #30 tabs 11/04/23 11/22/23 Rx potassium chloride 20 mEq 20 meq PO QAM #30 tabs 11/04/23 11/22/23 Rx tablet,extended release(part/cryst) metoprolol succinate 25 mg See Rx Instructions .Route .COMPLEX 11/05/23 11/22/23 History tablet,extended release 24 hr tamsulosin 0.4 mg capsule (Flomax) 0.4 mg PO QAM kidney stone 11/05/23 11/22/23 History losartan 25 mg tablet 12.5 mg PO DAILY 11/22/23 11/22/23 History Past Med/Surg History Problem List (Updated 11/23/23 @ 00:38 by MATTHEW Barros) Urinary tract infection (Acute) Acute UTI Encounter for pre-operative examination Prolonged QT interval Hypocalcemia Moderate aortic regurgitation Systolic and diastolic CHF, chronic Hypokalemia (Acute) Status post insertion of drug-eluting stent into left anterior descending (LAD) artery Paroxysmal atrial fibrillation Ureteral stent present Gram-negative bacteremia Premature atrial contractions Severe sepsis Hypomagnesemia (Acute) Somnolence (Acute) Bladder mass Left flank pain Hydronephrosis Left ureteral calculus Tachy-bob syndrome Wenckebach Sinus tachycardia H/O parathyroidectomy (Chronic) "09/26/13" Neuropathy (Chronic) Osteoporosis (Chronic) Vitamin D deficiency (Chronic) Dyslipidemia (Chronic) Migraine (Chronic) GERD (gastroesophageal reflux disease) (Chronic) HTN (hypertension) (Chronic) Medical History CAD (coronary artery disease) Stent 10/26/23, [facility] Diabetes mellitus type 2, uncomplicated Per [facility] records Atrial tachycardia, paroxysmal Hx of migraines Wenckebach Follows with [facility] cardio Hypertension GERD (gastroesophageal reflux disease) Congestive heart failure Atrial fibrillation Follows with [facility] cardio Nephrolithiasis History of hydronephrosis Glaucoma Bilateral tinnitus Neuropathy Feet, legs Hyperlipidemia H/O parathyroidectomy Surgical History Hx of appendectomy History of esophagogastroduodenoscopy (EGD) Hx of colonoscopy S/P cystoscopy with ureteral stent placement 09/2023, [facility] Hx of heart artery stent Stent x1, [facility] (10/26/23) Hx of cardiac cath Stent x1, [facility] (10/26/23) Hx of bilateral cataract extraction Hx of cholecystectomy History of back surgery lower back, 1984 Family History Other Cancer Social History Smoking Status: Never smoker Tobacco Type: Cigarettes Second Hand Exposure: No; Do You Dip or Chew Tobacco: No; Hx Alcohol Use: No Hx Substance Use: No Preferred Language: Lao Communication Ability: Effective Visual Impairment: No Limitations Hearing Ability: Normal Ethylbenzene Oxidizer Required: No Beliefs That Will Affect Care: None marital status: / Current Living Situation: Family Current Living Situation Comment: lives with daughter How many Children do You have: 2 Feels Safe at Home: Yes Safety Concerns: Feels Safe At This Time Assistive Devices: Glasses and Walker Review of Systems Review of Systems: All systems reviewed & are unremarkable except as noted in HPI & below Physical Exam Physical Exam: General- Not in distress Head- atraumatic Eyes- PERRL. ENT- oropharynx clear Neck- supple, no JVD. Lungs- clear to auscultation no wheezing or crackles Heart- regular rhythm; no murmur, no gallop. Abdomen- normal bowel sounds, soft, nontender, no distension. Extremities- no pretibial edema, no erythema seen Neuro- alert, oriented PERRL, no facial palsy; no dysarthria; moves extremities Results & Data Results & Data Vital Signs (Past 12 Hours) Vital Signs Temp Pulse Resp BP Pulse Ox O2 Del Method 11/22/23 21:22 85 11/22/23 20:55 93 H 11/22/23 20:00 88 18 141/75 H 94 Room Air 11/22/23 19:30 93 H 16 92 11/22/23 19:00 78 18 150/89 H 95 Room Air 11/22/23 18:54 94 H 19 95 11/22/23 18:45 101 H 19 96 11/22/23 18:36 99 H 20 96 11/22/23 17:57 98 H 19 95 11/22/23 17:30 103 H 17 97 11/22/23 17:24 88 19 95 11/22/23 17:12 105 H 16 96 11/22/23 17:06 106 H 17 96 11/22/23 17:02 108 H 11/22/23 17:00 125/79 11/22/23 17:00 125/79 11/22/23 16:54 100 H 24 94 11/22/23 16:51 113 H 21 93 11/22/23 16:48 103 H 18 95 11/22/23 16:46 158/81 H 11/22/23 16:46 158/81 H 11/22/23 16:46 95 Room Air 11/22/23 16:15 36.2 C L 120 H 18 120/67 95 Room Air Diagnostic Findings Laboratory Results WBC 9.27 K/ul (4.8-10.8) 11/22/23 16:40 RBC 4.40 M/uL (4.20-5.40) 11/22/23 16:40 Hgb 12.8 g/dl (12.0-16.0) 11/22/23 16:40 Hct 40.0 % (37.0-47.0) 11/22/23 16:40 MCV 90.9 fL (80.0-100.0) 11/22/23 16:40 MCH 29.1 pg (25.0-34.0) 11/22/23 16:40 MCHC 32.0 g/dL (32.0-36.0) 11/22/23 16:40 RDW Std Deviation 43.8 fL (36.4-46.3) 11/22/23 16:40 RDW Coeff of Didi 13.1 % (11.5-14.5) 11/22/23 16:40 Plt Count 348 K/uL (130-400) 11/22/23 16:40 MPV 9.2 fL (9.4-12.4) L 11/22/23 16:40 Immature Gran % (Auto) 0.5 % 11/22/23 16:40 Neut % (Auto) 57.5 % 11/22/23 16:40 Lymph % (Auto) 29.0 % 11/22/23 16:40 [place] % (Auto) 9.3 % 11/22/23 16:40 Eos % (Auto) 3.1 % 11/22/23 16:40 Baso % (Auto) 0.6 % 11/22/23 16:40 Neut # (Auto) 5.32 K/uL (1.40-6.50) 11/22/23 16:40 Lymph # (Auto) 2.69 K/uL (1.20-3.40) 11/22/23 16:40 [place] # (Auto) 0.86 K/uL (0.11-0.59) H 11/22/23 16:40 Eos # (Auto) 0.29 K/uL (0.00-0.50) 11/22/23 16:40 Baso # (Auto) 0.06 K/uL (0.00-0.20) 11/22/23 16:40 Immature Gran # (Auto) 0.05 K/uL (0.01-0.20) 11/22/23 16:40 Sodium 139 mmol/L (136-145) 11/22/23 16:40 Potassium 3.7 mmol/L (3.5-5.1) 11/22/23 16:40 Chloride 100 mmol/L (98-107) 11/22/23 16:40 Carbon Dioxide 28 mmol/L (21-32) 11/22/23 16:40 Anion Gap 11 (3-11) 11/22/23 16:40 BUN 20 mg/dl (6-23) 11/22/23 16:40 Creatinine 1.09 mg/dl (0.6-1.2) 11/22/23 16:40 Est Cr Clr Drug Dosing Not Reportable 11/22/23 16:40 Est GFR ( Amer) 54.7 ml/min 11/22/23 16:40 Est GFR (Non-Af Amer) 47.2 ml/min 11/22/23 16:40 BUN/Creatinine Ratio 18.3 (10-20) 11/22/23 16:40 Glucose 106 mg/dl (70-99(Fasting)) H 11/22/23 16:40 Lactate 2.0 mmol/L (0.4-2.0) 11/22/23 16:40 Calcium 10.0 mg/dl (8.6-10.3) 11/22/23 16:40 Total Bilirubin 0.4 mg/dl (0.2-1.0) 11/22/23 16:40 AST 13 U/L (13-39) 11/22/23 16:40 ALT 10 U/L (7-52) 11/22/23 16:40 Alkaline Phosphatase 62 U/L (34-104) 11/22/23 16:40 Troponin I High Sens 10.4 pg/ml (0-14) 11/22/23 16:40 Total Protein 7.5 gm/dl (6.0-8.3) 11/22/23 16:40 Albumin 3.8 gm/dl (3.4-5.0) 11/22/23 16:40 Globulin 3.7 gm/dl (2.5-4.0) 11/22/23 16:40 Albumin/Globulin Ratio 1.0 (0.9-2) 11/22/23 16:40 Lipase 45 U/L (11-82) 11/22/23 16:40 Urine Color See Comment 11/22/23 16:28 Urine Appearance Turbid (Clear) A 11/22/23 16:28 Urine pH Not Reportable 11/22/23 16:28 Ur Specific Bryant 1.017 (1.000-1.030) 11/22/23 16:28 Urine Protein Not Reportable 11/22/23 16:28 Urine Glucose (UA) Not Reportable 11/22/23 16:28 Urine Ketones Not Reportable 11/22/23 16:28 Urine Blood Not Reportable 11/22/23 16:28 Urine Nitrite Not Reportable 11/22/23 16:28 Urine Bilirubin Not Reportable 11/22/23 16:28 Urine Urobilinogen Not Reportable 11/22/23 16:28 Ur Leukocyte Esterase Not Reportable 11/22/23 16:28 Urine RBC 3-5 /hpf (0-2) H 11/22/23 16:28 Urine WBC >50 /hpf (0-5) H 11/22/23 16:28 Ur Epithelial Cells 3-5 /hpf (0-2) H 11/22/23 16:28 Urine Bacteria 1+ (None Seen) H 11/22/23 16:28 Urine Yeast Present (None Prsent) A 11/22/23 16:28 Impressions Abdomen/Pelvis CT 11/22/23 16:36 CT OF THE ABDOMEN AND PELVIS WITH CONTRAST CLINICAL HISTORY: Diffuse abdominal pain. Tenderness to palpation. COMPARISON STUDY: CT of the abdomen and pelvis October 31, 2023. KUB November 01, 2023. TECHNIQUE: Following IV administration of 94 mL of Optiray, axial images of the abdomen and pelvis were obtained from the lung bases to the proximal femurs. Images were reviewed in the axial, sagittal, and coronal planes. IV contrast was administered without complication. Automated exposure control was utilized for the study. A dose lowering technique was utilized adhering to the principles of ALARA. CT DOSE: 799.46 mGy.cm FINDINGS: Subpleural opacities within the lower lungs represent atelectasis. T here is no pneumatosis, free air or portal venous gas. Mild biliary ductal dilatation is similar to prior exam and likely related to cholecystectomy. Diverticulum of the second portion of the duodenum is noted. Spleen, adrenal glands and pancreas are unremarkable. Low-attenuation bilateral renal lesions favor cysts. A few subcentimeter renal lesions are too small to characterize but are likely benign. There is no right hydronephrosis. Mild left hydronephrosis is noted with mild urothelial thickening of the left collecting system. No ureteral calculi are identified. A few small bilateral renal calculi measure up to 2 mm. There is moderate renal cortical thinning. There is no evidence for a bowel obstruction. Colonic diverticulosis without evidence for acute diverticulitis. Infrarenal abdominal aorta is ectatic. There is extensive plaque within the abdominal aorta. There are no acute fractures within the visualized skeletal structures. Lumbar spine levoscoliosis is incidentally noted. There is mild bladder wall thickening. IMPRESSION: 1. Left ureteral stent in place. Mild left hydronephrosis. No ureteral calculi. 2. Urothelial thickening of the left collecting system and bladder wall thickening. The findings could be correlated with urinalysis to exclude an infectious process. 3. A few small bilateral renal calculi. 4. Colonic diverticulosis. No evidence for acute diverticulitis. 5. No bowel obstruction. ACT 112: Negative or not required by law. Electronically signed by: Kevin Marvin M.D. 11/22/2023 6:02 PM ECG Additional Comments: ECG. Sinus tachycardia with first-degree AV block rate of 107. Nonspecific T wave abnormalities. QTc 467 Code Status & VTE Plan VTE Prophylaxis Plan VTE Prophylaxis will be ordered: Yes
[2023-11-23] MEDS ORDERED: POLYETHYLENE (MIRALAX) 17 GM PACK PO PRN (00:30)
[2023-11-23] MEDS ORDERED: NITROGLYCERIN SL 0.4 MG/TAB TAB SL PRN (00:30)
[2023-11-23] MEDS: SODIUM CHLORIDE 0.9% 1,000 ML IV SCH (00:50)
[2023-11-23] MEDS: METOPROLOL TARTRATE 1 MG/ML VIAL IV STA (02:47)
[2023-11-23 06:29] LABS: Basophils # (auto) 0.06 K/uL (0.00-0.20); Basophils % (auto) 0.8 %; Eosinophils # (auto) 0.29 K/uL (0.00-0.50); Hematocrit (blood only) 39.9 % (37.0-47.0); Hemoglobin 12.9 g/dl (12.0-16.0); Immature Granulocytes # (auto) 0.04 K/uL (0.01-0.20); Immature Granulocytes % (auto) 0.6 %; Lymphocytes # (auto) 1.14 K/uL (1.20-3.40); Lymphocytes % (auto) 15.7 %; Mean Corpuscular Hemoglobin 29.5 pg (25.0-34.0); Mean Corpuscular Hgb Conc 32.3 g/dL (32.0-36.0); Mean Corpuscular Volume 91.3 fL (80.0-100.0); Monocytes # (auto) 0.55 K/uL (0.11-0.59); Monocytes % (auto) 7.6 %; Neutrophils # (auto) 5.16 K/uL (1.40-6.50); Neutrophils % (auto) 71.3 %; Platelet Count 294 K/uL (130-400); RDW Coefficient of Variation 13.2 % (11.5-14.5); RDW Standard Deviation 44.1 fL (36.4-46.3); Red Blood Count 4.37 M/uL (4.20-5.40); White Blood Count 7.24 K/ul (4.8-10.8)
[2023-11-23 06:44] LABS: Calcium 9.3 mg/dl (8.6-10.3); Creatinine Clr Calc Pharmacy 41.5 ml/min; Est GFR (African American) 65.5 ml/min; Est GFR (Non-African American) 56.5 ml/min; Magnesium 1.4 mg/dl (1.7-2.4); Potassium 3.9 mmol/L (3.5-5.1)
[2023-11-23 07:44] LABS: Estimated Average Glucose 131 mg/dl; Hemoglobin A1C 6.2 % (4.5-5.6)
[2023-11-23] MEDS: MULTIVITAMIN TAB PO SCH (08:17)
[2023-11-23] MEDS: CLOPIDOGREL BISULFATE 75 MG TAB PO SCH (08:18)
[2023-11-23] MEDS: CALCITRIOL 0.25 MCG CAPSULE PO SCH (08:18)
[2023-11-23] MEDS: FUROSEMIDE 40 MG TAB PO SCH (08:18)
[2023-11-23] MEDS: TAMSULOSIN HCL 0.4 MG CAP PO SCH (08:18)
[2023-11-23] MEDS: POTASSIUM CHLORIDE CRTAB 20 MEQ TABCR PO SCH (08:18)
[2023-11-23] MEDS: LOSARTAN POTASSIUM 25 MG TAB PO SCH (08:18)
[2023-11-23] MEDS: ASPIRIN 81 MG ECTAB PO SCH (08:18)
[2023-11-23] MEDS: PANTOprazole 40 MG TAB PO SCH (08:18)
[2023-11-23] MEDS: DULoxetine HCL 60 MG CAP PO SCH (08:18)
[2023-11-23] MEDS: MAGNESIUM CHLORIDE W/CALCIUM 64MG DELAYED REL TAB PO SCH (08:18)
[2023-11-23] MEDS: METOPROLOL SUCC 25MG EXT REL TAB PO SCH ×2 (08:19→21:05)
[2023-11-23] MEDS: LATANOPROST 0.005% OP SOLN 2.5 ML BTL OPB SCH (08:20)
--- NOTE | 2023-11-23 08:42 | Urology Consultation ---
Date of Consultation November 23, 2023 Assessment & Plan (1) Urinary tract infection: (2) Ureteral stent present: 82 yo/F with history of left ureteral stone s/p left ureteral stent placement admitted for suspected UTI. Patient remains afebrile, tachycardic Labs today reviewedcreatinine 0.94, WBC 7.24, hemoglobin 12.9 Urine and blood cultures are pending CT abdomen pelvis reviewedleft ureteral stent in appropriate position Recommend continue broad-spectrum antibiotics and narrow per sensitivity data when available No acute intervention today She is scheduled for outpatient surgery on 12/10/[address] Myers plan to keep as scheduled Continue her anticoagulation as planned for 4 weeks following her drug eluting stent per cardiology, then hold Plavix for 5 days prior to surgery as planned Will likely continue with antibiotics until her surgery pending cultures/clinical course Continue supportive care, antibiotics and medical management per hospital medicine service will follow peripherally, please contact our service with any questions or concerns History of Present Illness Reason for Consultation: recurrent uti, bladder mass, recent ureteral stent Requesting Physician: Dr. Hale Attending Physician: Donnie Angelo MD History of Present Illness This is a 89-year-old female who presented to the emergency department on 11/22/2023 for evaluation of tachycardia, dysuria, urinary urgency and frequency and was admitted for suspected UTI. Of note, she was hospitalized at [facility] 09/24-09/26 secondary to a left ureteral stone and UTI. She underwent left ureteral stent placement on 09/25/2023; incidental finding of approximately 2 cm bladder mass during procedure. She was readmitted to the hospital again in early October for acute UTI, sepsis and encephalopathy. Her blood cultures during hospitalization showed Pseudomonas, urine culture showed Pseudomonas and Enterococcus. She was scheduled for repeat surgery on 11/01, however ended up undergoing cardiac catheterization on 10/25 with angioplasty and placement of drug-eluting stent. Urine culture 10/30 grew out Klebsiella, was treated with antibiotics. On arrival to ED, she was afebrile, tachycardic, normotensive. Labs showed creatinine 1.09, WBC 9.27, hemoglobin 12.8. Urinalysis demonstrated turbid urine, 3-5 RBC, >50 WBC, 1+ bacteria and yeast present. Work-up in the emergency department included CT abdomen pelvis with contrast which showed left ureteral stent in place, mild left hydronephrosis, no ureteral calculi visualized. Urothelial thickening of the left collecting system and bladder wall thickening. A few small bilateral renal calculi. ED course: IV fluids, ceftriaxone, and morphine. Patient seen and examined at bedside this morning. Reports feeling a little bit better today. Continues to have mild dysuria with urination. No hematuria. Denies nausea, vomiting, fever or chills. Allergies Allergy/AdvReac Type Severity Reaction Status Date / Time No Known Allergies Allergy Verified 11/22/23 17:53 Home Medications Medication Instructions Recorded Confirmed Type multivitamin 1 tab PO QAM 05/03/18 11/22/23 History omeprazole 20 mg tablet,delayed 20 mg PO BID 05/03/18 11/22/23 History release dorzolamide 22.3 mg-timolol 6.8 1 drp OPB 06/01/18 11/22/23 History mg/mL eye drops (Cosopt) duloxetine 60 mg capsule,delayed 60 mg PO QAM 06/01/18 11/22/23 History release (Cymbalta) latanoprost 0.005 % eye drops 1 drp OPB [facility] 06/01/18 11/22/23 History (Xalatan) aspirin 81 mg tablet,delayed 81 mg PO QAM 06/24/20 11/22/23 History release (Ed Low Dose Aspirin) calcitriol 0.5 mcg capsule 1 mcg PO QAM 09/25/23 11/22/23 History rosuvastatin 10 mg tablet 10 mg PO HS 09/25/23 11/22/23 History latanoprostene bunod 0.024 % eye 1 drp OPB 10/13/23 11/22/23 History drops (Vyzulta) clopidogrel 75 mg tablet 75 mg PO QAM #30 tabs 10/29/23 11/22/23 Rx furosemide 40 mg tablet 40 mg PO QAM #30 tabs 10/29/23 11/22/23 Rx magnesium chloride 64 mg 64 mg PO BID #60 tabs 11/04/23 11/22/23 Rx (magnesium chloride) tablet,delayed release (Mag 64) phenazopyridine 100 mg tablet 100 mg PO TID PRN pain #30 tabs 11/04/23 11/22/23 Rx potassium chloride 20 mEq 20 meq PO QAM #30 tabs 11/04/23 11/22/23 Rx tablet,extended release(part/cryst) metoprolol succinate 25 mg See Rx Instructions .Route .COMPLEX 11/05/23 11/22/23 History tablet,extended release 24 hr tamsulosin 0.4 mg capsule (Flomax) 0.4 mg PO QAM kidney stone 11/05/23 11/22/23 History losartan 25 mg tablet 12.5 mg PO DAILY 11/22/23 11/22/23 History Patient History Medical History CAD (coronary artery disease) Stent 10/26/23, [facility] Diabetes mellitus type 2, uncomplicated Per [facility] records Atrial tachycardia, paroxysmal Hx of migraines Wenckebach Follows with [facility] cardio Hypertension GERD (gastroesophageal reflux disease) Congestive heart failure Atrial fibrillation Follows with [facility] cardio Nephrolithiasis History of hydronephrosis Glaucoma Bilateral tinnitus Neuropathy Feet, legs Hyperlipidemia H/O parathyroidectomy Surgical History Hx of appendectomy History of esophagogastroduodenoscopy (EGD) Hx of colonoscopy S/P cystoscopy with ureteral stent placement 09/2023, [facility] Hx of heart artery stent Stent x1, [facility] (10/26/23) Hx of cardiac cath Stent x1, [facility] (10/26/23) Hx of bilateral cataract extraction Hx of cholecystectomy History of back surgery lower back, 1984 Family History Other Cancer Social History Smoking Status: Never smoker Tobacco Type: Cigarettes Second Hand Exposure: No; Do You Dip or Chew Tobacco: No; Hx Alcohol Use: No Hx Substance Use: No Preferred Language: Lebanese Communication Ability: Effective Visual Impairment: No Limitations Hearing Ability: Normal Game Producer Required: No Beliefs That Will Affect Care: None marital status: / Current Living Situation: Family Current Living Situation Comment: lives with daughter How many Children do You have: 2 Feels Safe at Home: Yes Safety Concerns: Feels Safe At This Time Assistive Devices: Glasses and Walker Review of Systems Review of Systems: All systems reviewed & are unremarkable except as noted in HPI & below Physical Exam Constitutional: well developed and well nourished; no acute distress Respiratory: normal respiratory effort; no respiratory distress and no labored breathing Gastrointestinal (Abdomen): Inspection/Auscultation: abdomen normal to inspection Musculoskeletal: Head/Neck/Chest: normocephalic Neurologic: moves all extremities and awake Psychiatric: Orientation: alert and oriented x 3 Results & Data Vital Signs (Past 12 Hours) Vital Signs Temp Pulse Pulse Resp BP BP Pulse Ox 11/23/23 08:30 11/23/23 07:56 109 H 11/23/23 07:54 37.0 C 116 H 18 153/86 H 93 11/23/23 03:04 93 H 166/87 H 11/23/23 03:04 93 H 166/87 H 11/23/23 02:47 132 H 177/87 H 11/23/23 02:40 36.3 C L 132 H 16 177/87 H 96 11/23/23 00:56 96 H 11/23/23 00:30 36.4 C L 98 H 16 149/84 H 11/23/23 00:30 11/22/23 21:22 85 11/22/23 20:55 93 H Pulse Ox O2 Del Method O2 Del Method 11/23/23 08:30 Room Air 11/23/23 07:56 11/23/23 07:54 Room Air 11/23/23 03:04 11/23/23 03:04 11/23/23 02:47 11/23/23 02:40 Room Air 11/23/23 00:56 11/23/23 00:30 11/23/23 00:30 96 Room Air 11/22/23 21:22 11/22/23 20:55 PG Care Time/CCT Total # of Minutes Spent Total Time Spent with Patient: Total time spent is greater than 50% in coordination of care (as documented) at patient's floor/unit and/or counseling patient: Coding Level of Care Code 22901 INT INP/OBS CARE 2/55MIN Diagnoses Urinary tract infection N30.01 Hematuria presence: with hematuria Urinary tract infection type: acute cystitis Ureteral stent present Z96.0 (1) Urinary tract infection Hematuria presence: with hematuria Urinary tract infection type: acute cystitis Qualified Code(s): N30.01 - Acute cystitis with hematuria
[2023-11-23] MEDS: CEFEPIME 1,000 MG in SYRINGE 0 ML IV SCH (11:12)
[2023-11-23] MEDS: MAGNESIUM SULFATE / D5W 1 GM/100 ML BAG IV SCH (11:12)
--- NOTE | 2023-11-23 13:06 | Electrocardiogram Report ---
Test Reason : Blood Pressure : */* mmHG Vent. Rate : 107 BPM Atrial Rate : 107 BPM P-R Int : 240 ms QRS Dur : 74 ms QT Int : 350 ms P-R-T Axes : * 37 99 degrees QTcB Int : 467 ms Sinus tachycardia with 1st degree A-V block Blocked Premature atrial complexes Low voltage QRS Nonspecific T wave abnormality Abnormal ECG When compared with ECG of 03-Nov-2023 05:14, Premature atrial complexes are no longer Present GA interval has increased Vent. rate has increased by 46 bpm T wave inversion less evident in Anterolateral leads QT has shortened Confirmed by Leno Becker ([id number]) on 11/23/2023 1:06:12 PM Referred By: REFERRED SELF Confirmed By: Leno Becker
--- NOTE | 2023-11-23 13:43 | Hospitalist Progress Note ---
Date of Service November 23, 2023 Assessment & Plan (1) Acute UTI: Plan: 82-year-old female with past medical history significant for dyslipidemia, surgical hypoparathyroidism, prediabetes, peripheral artery disease, paroxysmal atrial tachycardia, tachybradycardia syndrome, hypertension, moderate aortic regurgitation, first-degree AV block, GERD, CKD stage III, classical migraines, sensorineural hearing loss both ears, polyneuropathy, open-angle glaucoma, pres ents with abdominal pain and back pain and burning micturition and found to have recurrent UTI. Patient currently resting comfortably. States had headache earlier in the morning but currently subsided. No runny nose or sore throat. No difficulty swallowing. No chest pain or shortness of breath. Currently no nausea. Moving bowels okay. Denies any blood in the stools or black stools. Denies any hematuria. Hemodynamics are okay. Recent admissions and medical issues: In September patient had severe sepsis and acute UTI and was s/p left ureteral stent placement on 09/25/2023 by urology and also found to have bladder mass at that time. She was scheduled for repeat surgery on 11/01 but patient ended up in the hospital with acute on chronic combined systolic and diastolic CHF and also had atrial tachycardia and paroxysmal atrial fibrillation and during that admission patient also had cardiac cath with drug-eluting stent to LAD. Patient also found to have early tachybradycardia syndrome possible on a higher dose of metoprolol .Because of fall risk anticoagulation with Eliquis was not started currently on aspirin and Plavix. Patient was again admitted on 10/31/2023 with recurrent complicated urinary tract infection. Cultures grew Klebsiella she was discharged on cefpodoxime .During that admission she also had atrial tachycardia initially amiodarone was started but because of prolonged QT it was discontinued and metoprolol dose was increased. And there was a plan for definitive stone surgery and TURP on 11/09. Patient followed-up with urology on 11/11/23 and since cardiology recommended at least 4 weeks of aspirin and Plavix for drug-eluting stent from stent placement and seems daughter told urology that patient has not been on these medications it was decided to continue aspirin and Plavix for next couple of weeks and hold Plavix 5 days prior to surgery. Urology planning to see her in next 3 to 4 weeks. Acute complicated UTI Recurrent UTIs H/O left ureteral stone s/p left ureteral stent placement Nephrolithiasis, bladder mass --CT ABD:Left ureteral stent in place. Mild left hydronephrosis. No ureteral calculi. Urothelial thickening of the left collecting system and bladder wall thickening. The findings could be correlated with urinalysis to exclude an infectious process. A few small bilateral renal calculi. Colonic diverticulosis. No evidence for acute diverticulitis. No bowel obstruction. -- Blood culture pending --Urine culture pending --Continue IV cefepime Plan for TURBT on 12/10/[address] Tiwari Needs to hold Plavix 5 days prior to surgery Gentle IV fluids Appreciate urology input Titrate antibiotics based on cultures Hypomagnesemia Replete and monitor electrolytes as needed Atrial tachycardia Paroxysmal atrial fibrillation Early tachybradycardia syndrome Continue metoprolol Not on anticoagulation due to fall risk On aspirin and Plavix monitor History of CAD status post drug-eluting stent On aspirin, Plavix, beta-sav and statin Chronic systolic and diastolic CHF Continue Lasix, metoprolol, losartan Monitor volume status Hypertension Continue losartan, metoprolol Also on Lasix, tamsulosin Blood pressure relatively low monitor Hyperlipidemia On statin Prediabetes HbA1c 6.2 Diabetic diet CKD III Renal function at baseline Monitor DVT Px: Heparin SQ CODE STATUS Full code Admission and Anticipated Discharge Date Admission Date: November 22, 2023 Subjective Patient is seen and examined at bedside States having dysuria and abdominal discomfort Denies any chest pain, dyspnea, hematuria, dizziness No other complaints Review of Systems Review of Systems: All systems reviewed & are unremarkable except as noted in Subjective Physical Exam Physical Exam: Physical Exam: Vitals signs as noted above General Appearance:Moderately built and nourished, no apparent distress, chronic ill-appearing, elderly Head: normocephalic, Atraumatic Eyes: normal inspection, EOMI Neck: supple, Trachea midline Respiratory/Chest: Decreased breath sounds, CTA, No accessory muscle use Cardiovascular: S1, S2, No murmur,+Tachycardia Abdomen/GI:Soft, Non tender, Bowel sounds present Extremities/Musculoskeletal:normal inspection, no edema Neurologic/Psych:AAOX3, grossly no focal neurological deficits Skin: normal color, warm Results & Data Results & Data Vital Signs (Past 12 Hours) Vital Signs Temp Pulse Pulse Resp BP BP Pulse Ox 11/23/23 11:28 36.9 C 108 H 18 105/61 93 11/23/23 08:30 11/23/23 07:56 109 H 11/23/23 07:54 37.0 C 116 H 18 153/86 H 93 11/23/23 03:04 93 H 166/87 H 11/23/23 03:04 93 H 166/87 H 11/23/23 02:47 132 H 177/87 H 11/23/23 02:40 36.3 C L 132 H 16 177/87 H 96 O2 Del Method 11/23/23 11:28 Room Air 11/23/23 08:30 Room Air 11/23/23 07:56 11/23/23 07:54 Room Air 11/23/23 03:04 11/23/23 03:04 11/23/23 02:47 11/23/23 02:40 Room Air Laboratory Results Short CBC 11/22/23 11/23/23 Range/Units 16:40 06:00 WBC 9.27 7.24 (4.8-10.8) K/ul Hgb 12.8 12.9 (12.0-16.0) g/dl Hct 40.0 39.9 (37.0-47.0) % Plt Count 348 294 (130-400) K/uL BMP 11/22/23 11/23/23 16:40 06:00 Sodium 139 142 Potassium 3.7 3.9 Chloride 100 104 Carbon Dioxide 28 31 BUN 20 16 Creatinine 1.09 0.94 Glucose 106 H 118 H Calcium 10.0 9.3 Liver Function 11/22/23 Range/Units 16:40 Total Bilirubin 0.4 (0.2-1.0) mg/dl AST 13 (13-39) U/L ALT 10 (7-52) U/L Alkaline Phosphatase 62 (34-104) U/L Albumin 3.8 (3.4-5.0) gm/dl Urine 11/22/23 Range/Units 16:28 Urine Color See Comment Urine Appearance Turbid A (Clear) Urine pH Not Reportable Ur Specific [place] 1.017 (1.000-1.030) Urine Protein Not Reportable Urine Glucose (UA) Not Reportable
[2023-11-23] MEDS: ACETAMINOPHEN 325 MG TAB PO PRN (14:35)
[2023-11-23] MEDS: HEPARIN SOD 5,000 UNIT/0.5 ML VIAL SQ SCH (14:35)
[2023-11-23] MEDS: SODIUM CHLORIDE 0.9% 1,000 ML IV ONE (17:47)
[2023-11-23] MEDS ORDERED: cefTRIAXone SODIUM 2,000 MG/50 ML BAG IV SCH (18:00)
[2023-11-23] MEDS: ROSUVASTATIN CALCIUM 10 MG TAB PO SCH (21:00)
[2023-11-23] MEDS: PHENAZOPYRIDINE HCL 100 MG TAB PO PRN (21:00)
[2023-11-23] MEDS: DORZOLAMIDE/TIMOLOL 22.3/6.8MG/ML 10 ML BTL OPB SCH (21:05)
[2023-11-24 06:27] LABS: Hemoglobin 10.9 g/dl (12.0-16.0); Mean Corpuscular Hemoglobin 28.8 pg (25.0-34.0); Mean Corpuscular Hgb Conc 32.1 g/dL (32.0-36.0); Mean Corpuscular Volume 89.9 fL (80.0-100.0); Mean Platelet Volume 9.1 fL (9.4-12.4); Platelet Count 274 K/uL (130-400); Red Blood Count 3.78 M/uL (4.20-5.40); White Blood Count 5.88 K/ul (4.8-10.8)
[2023-11-24 06:36] LABS: BUN Creatinine Ratio 16.4 (10-20); Calcium 9.1 mg/dl (8.6-10.3); Creatinine Clr Calc Pharmacy 35.5 ml/min; Est GFR (African American) 54.1 ml/min; Est GFR (Non-African American) 46.7 ml/min; Magnesium 1.7 mg/dl (1.7-2.4); Potassium 3.6 mmol/L (3.5-5.1)
--- NOTE | 2023-11-24 16:59 | Hospitalist Progress Note ---
Date of Service November 24, 2023 Assessment & Plan (1) Acute UTI: Plan: 82-year-old female with past medical history significant for dyslipidemia, surgical hypoparathyroidism, prediabetes, peripheral artery disease, paroxysmal atrial tachycardia, tachybradycardia syndrome, hypertension, moderate aortic regurgitation, first-degree AV block, GERD, CKD stage III, classical migraines, sensorineural hearing loss both ears, polyneuropathy, open-angle glaucoma, pres ents with abdominal pain and back pain and burning micturition and found to have recurrent UTI. Patient currently resting comfortably. States had headache earlier in the morning but currently subsided. No runny nose or sore throat. No difficulty swallowing. No chest pain or shortness of breath. Currently no nausea. Moving bowels okay. Denies any blood in the stools or black stools. Denies any hematuria. Hemodynamics are okay. Recent admissions and medical issues: In September patient had severe sepsis and acute UTI and was s/p left ureteral stent placement on 09/25/2023 by urology and also found to have bladder mass at that time. She was scheduled for repeat surgery on 11/01 but patient ended up in the hospital with acute on chronic combined systolic and diastolic CHF and also had atrial tachycardia and paroxysmal atrial fibrillation and during that admission patient also had cardiac cath with drug-eluting stent to LAD. Patient also found to have early tachybradycardia syndrome possible on a higher dose of metoprolol .Because of fall risk anticoagulation with Eliquis was not started currently on aspirin and Plavix. Patient was again admitted on 10/31/2023 with recurrent complicated urinary tract infection. Cultures grew Klebsiella she was discharged on cefpodoxime .During that admission she also had atrial tachycardia initially amiodarone was started but because of prolonged QT it was discontinued and metoprolol dose was increased. And there was a plan for definitive stone surgery and TURP on 11/09. Patient followed-up with urology on 11/11/23 and since cardiology recommended at least 4 weeks of aspirin and Plavix for drug-eluting stent from stent placement and seems daughter told urology that patient has not been on these medications it was decided to continue aspirin and Plavix for next couple of weeks and hold Plavix 5 days prior to surgery. Urology planning to see her in next 3 to 4 weeks. Acute complicated UTI Recurrent UTIs LUTS H/O left ureteral stone s/p left ureteral stent placement Nephrolithiasis, bladder mass --CT ABD:Left ureteral stent in place. Mild left hydronephrosis. No ureteral calculi. Urothelial thickening of the left collecting system and bladder wall thickening. The findings could be correlated with urinalysis to exclude an infectious process. A few small bilateral renal calculi. Colonic diverticulosis. No evidence for acute diverticulitis. No bowel obstruction. -- Blood culture pending --Urine culture: More than 3 type of organisms, all high counts --Repeat urine culture pending --Continue IV cefepime for now Plan for TURBT on 12/10/[address] Tiwari Needs to hold Plavix 5 days prior to surgery Gentle IV fluids Appreciate urology input PT/OT prior to discharge Needs follow-up with urology on discharge Hypomagnesemia Replete and monitor electrolytes as needed Atrial tachycardia Paroxysmal atrial fibrillation Early tachybradycardia syndrome Continue metoprolol Not on anticoagulation due to fall risk On aspirin and Plavix monitor History of CAD status post drug-eluting stent On aspirin, Plavix, beta-sav and statin Chronic systolic and diastolic CHF Continue Lasix, metoprolol, losartan Monitor volume status Hypertension Continue losartan, metoprolol Also on Lasix, tamsulosin Blood pressure better today monitor Hyperlipidemia On statin Prediabetes HbA1c 6.2 Diabetic diet CKD III Renal function at baseline Monitor DVT Px: Heparin SQ CODE STATUS Full code Admission and Anticipated Discharge Date Admission Date: November 22, 2023 Subjective Patient is seen and examined at bedside Reports persistent dysuria Sitting in chair during my encounter Offers no other complaints Denies any chest pain, dyspnea, hematuria, dizziness No other complaints Review of Systems Review of Systems: All systems reviewed & are unremarkable except as noted in Subjective Physical Exam Physical Exam: Physical Exam: Vitals signs as noted above General Appearance:Moderately built and nourished, no apparent distress, chronic ill-appearing, elderly Head: normocephalic, Atraumatic Eyes: normal inspection, EOMI Neck: supple, Trachea midline Respiratory/Chest: Decreased breath sounds, CTA, No accessory muscle use Cardiovascular: S1, S2, No murmur Abdomen/GI:Soft, Non tender, Bowel sounds present Extremities/Musculoskeletal:normal inspection, no edema Neurologic/Psych:AAOX3, grossly no focal neurological deficits Skin: normal color, warm Results & Data Results & Data Vital Signs (Past 12 Hours) Vital Signs Temp Pulse Pulse Resp BP Pulse Ox O2 Del Method 11/24/23 15:07 36.4 C L 97 H 20 110/69 94 Room Air 11/24/23 14:25 98 H 11/24/23 11:23 36.3 C L 84 20 105/64 93 Room Air 11/24/23 10:30 Room Air 11/24/23 07:54 36.7 C 84 20 120/55 L 94 Room Air 11/24/23 07:28 94 H Laboratory Results Short CBC 11/24/23 Range/Units 05:40 WBC 5.88 (4.8-10.8) K/ul Hgb 10.9 L (12.0-16.0) g/dl Hct 34.0 L (37.0-47.0) % Plt Count 274 (130-400) K/uL BMP 11/24/23 05:40 Sodium 139 Potassium 3.6 Chloride 105 Carbon Dioxide 27 BUN 18 Creatinine 1.10 Glucose 120 H Calcium 9.1
[2023-11-25 07:15] LABS: Hematocrit (blood only) 33.4 % (37.0-47.0); Hemoglobin 10.9 g/dl (12.0-16.0); Mean Corpuscular Hemoglobin 28.9 pg (25.0-34.0); Mean Corpuscular Hgb Conc 32.6 g/dL (32.0-36.0); Mean Corpuscular Volume 88.6 fL (80.0-100.0); Platelet Count 284 K/uL (130-400); RDW Standard Deviation 41.8 fL (36.4-46.3); Red Blood Count 3.77 M/uL (4.20-5.40); White Blood Count 6.61 K/ul (4.8-10.8)
[2023-11-25 07:33] LABS: Calcium 8.9 mg/dl (8.6-10.3); Creatinine Clr Calc Pharmacy 34.8 ml/min; Est GFR (African American) 52.4 ml/min; Est GFR (Non-African American) 45.2 ml/min; Magnesium 1.5 mg/dl (1.7-2.4); Potassium 3.9 mmol/L (3.5-5.1)
[2023-11-25] MEDS: POTASSIUM CHLORIDE 20 MEQ/15 ML UDC PO SCH (08:43)
--- NOTE | 2023-11-25 16:56 | Hospitalist Progress Note ---
Date of Service November 25, 2023 Assessment & Plan (1) Acute UTI: Plan: 82-year-old female with past medical history significant for dyslipidemia, surgical hypoparathyroidism, prediabetes, peripheral artery disease, paroxysmal atrial tachycardia, tachybradycardia syndrome, hypertension, moderate aortic regurgitation, first-degree AV block, GERD, CKD stage III, classical migraines, sensorineural hearing loss both ears, polyneuropathy, open-angle glaucoma admit dov with abdominal pain and back pain and burning micturition and found to have recurrent complicated UTI. Recent admissions and medical issues: In September patient had severe sepsis and acute UTI and was s/p left ureteral stent placement on 09/25/2023 by urology and also found to have bladder mass at that time. She was scheduled for repeat surgery on 11/01 but patient ended up in the hospital with acute on chronic combined systolic and diastolic CHF and also had atrial tachycardia and paroxysmal atrial fibrillation and during that admission patient also had cardiac cath with drug-eluting stent to LAD. Patient also found to have early tachybradycardia syndrome possible on a higher dose of metoprolol .Because of fall risk anticoagulation with Eliquis was not started currently on aspirin and Plavix. Patient was again admitted on 10/31/2023 with recurrent complicated urinary tract infection. Cultures grew Klebsiella she was discharged on cefpodoxime .During that admission she also had atrial tachycardia initially amiodarone was started but because of prolonged QT it was discontinued and metoprolol dose was increased. And there was a plan for definitive stone surgery and TURP on 11/09. Patient followed-up with urology on 11/11/23 and since cardiology recommended at least 4 weeks of aspirin and Plavix for drug-eluting stent from stent placement and seems daughter told urology that patient has not been on these medications it was decided to continue aspirin and Plavix for next couple of weeks and hold Plavix 5 days prior to surgery. Urology planning to see her in next 3 to 4 weeks. Acute complicated UTI Recurrent UTIs LUTS H/O left ureteral stone s/p left ureteral stent placement Nephrolithiasis, bladder mass --CT ABD:Left ureteral stent in place. Mild left hydronephrosis. No ureteral calculi. Urothelial thickening of the left collecting system and bladder wall thickening. The findings could be correlated with urinalysis to exclude an infectious process. A few small bilateral renal calculi. Colonic diverticulosis. No evidence for acute diverticulitis. No bowel obstruction. -- Blood culture reviewed --Urine culture: More than 3 type of organisms, all high counts --Repeat urine culture pending, preliminary blood cultures are negative --Continue IV cefepime for now Plan for TURBT on 12/10/[address] Tiwari Needs to hold Plavix 5 days prior to surgery Gentle IV fluids Appreciate urology input PT/OT prior to discharge Needs follow-up with urology on discharge Hypomagnesemia Replete and monitor electrolytes as needed 1.6 this morning. Magnesium ordered Atrial tachycardia Paroxysmal atrial fibrillation Early tachybradycardia syndrome Continue metoprolol Not on anticoagulation due to fall risk On aspirin and Plavix monitor History of CAD status post drug-eluting stent On aspirin, Plavix, beta-sav and statin Chronic systolic and diastolic CHF Continue Lasix, metoprolol, losartan Monitor volume status Hypertension Continue losartan, metoprolol Also on Lasix, tamsulosin Blood pressure better today monitor Hyperlipidemia On statin Prediabetes HbA1c 6.2 Diabetic diet CKD III Renal function at baseline Monitor DVT Px: Heparin SQ CODE STATUS Full code Total 50 minutes was spent in review of imaging, studies, counseling and care coordination Admission and Anticipated Discharge Date Admission Date: November 22, 2023 Subjective Patient is seen and examined at bedside early this am. Nursing is present No overnight events reported Denies any chest pain, dyspnea, hematuria, dizziness PT and OT along with CM notes are reviewed. If patient is discharged home will likely need 24-hour care. Physical Exam Physical Exam: General-chronic ill-appearing, elderly female Head- atraumatic Eyes- PERRL, EOMI, anicteric ENT- oropharynx clear Neck- supple, no JVD, no adenopathy, no thyromegaly; carotids +2/2, no bruits appreciated Lungs- clear to auscultation and percussion Heart- regular rhythm; no murmur, no gallop, no rub appreciated Abdomen- normal bowel sounds, soft, nontender, no masses or hepatosplenomegaly Extremities- no pretibial edema, no calf tenderness; peripheral pulses intact Neuro- alert, oriented x 3; PERRL, EOMI; no focal deficits Skin- warm & dry Results & Data Results & Data Vital Signs (Past 12 Hours) Vital Signs Temp Pulse Pulse Resp BP Pulse Ox O2 Del Method 11/25/23 16:11 36.4 C L 109 H 18 116/65 94 Room Air 11/25/23 16:11 Room Air 11/25/23 16:04 66 11/25/23 11:35 36.4 C L 102 H 18 127/74 93 Room Air 11/25/23 08:00 103 H 11/25/23 07:51 36.7 C 100 H 18 99/52 L 94 Room Air Laboratory Results Laboratory Results WBC 6.61 K/ul (4.8-10.8) 11/25/23 06:46 RBC 3.77 M/uL (4.20-5.40) L 11/25/23 06:46 Hgb 10.9 g/dl (12.0-16.0) L 11/25/23 06:46 Hct 33.4 % (37.0-47.0) L 11/25/23 06:46 MCV 88.6 fL (80.0-100.0) 11/25/23 06:46 MCH 28.9 pg (25.0-34.0) 11/25/23 06:46 MCHC 32.6 g/dL (32.0-36.0) 11/25/23 06:46 RDW Std Deviation 41.8 fL (36.4-46.3) 11/25/23 06:46 RDW Coeff of Didi 13.0 % (11.5-14.5) 11/25/23 06:46 Plt Count 284 K/uL (130-400) 11/25/23 06:46 MPV 9.0 fL (9.4-12.4) L 11/25/23 06:46 Immature Gran % (Auto) 0.6 % 11/23/23 06:00 Neut % (Auto) 71.3 % 11/23/23 06:00 Lymph % (Auto) 15.7 % 11/23/23 06:00 [place] % (Auto) 7.6 % 11/23/23 06:00 Eos % (Auto) 4.0 % 11/23/23 06:00 Baso % (Auto) 0.8 % 11/23/23 06:00 Neut # (Auto) 5.16 K/uL (1.40-6.50) 11/23/23 06:00 Lymph # (Auto) 1.14 K/uL (1.20-3.40) L 11/23/23 06:00 [place] # (Auto) 0.55 K/uL (0.11-0.59) 11/23/23 06:00 Eos # (Auto) 0.29 K/uL (0.00-0.50) 11/23/23 06:00 Baso # (Auto) 0.06 K/uL (0.00-0.20) 11/23/23 06:00 Immature Gran # (Auto) 0.04 K/uL (0.01-0.20) 11/23/23 06:00 Sodium 140 mmol/L (136-145) 11/25/23 06:46 Potassium 3.9 mmol/L (3.5-5.1) 11/25/23 06:46 Chloride 104 mmol/L (98-107) 11/25/23 06:46 Carbon Dioxide 29 mmol/L (21-32) 11/25/23 06:46 Anion Gap 7 (3-11) 11/25/23 06:46 BUN 17 mg/dl (6-23) 11/25/23 06:46 Creatinine 1.13 mg/dl (0.6-1.2) 11/25/23 06:46 Est Cr Clr Drug Dosing 34.8 ml/min 11/25/23 06:46 Est GFR ( Amer) 52.4 ml/min 11/25/23 06:46 Est GFR (Non-Af Amer) 45.2 ml/min 11/25/23 06:46 BUN/Creatinine Ratio 15.0 (10-20) 11/25/23 06:46 Glucose 121 mg/dl (70-99(Fasting)) H 11/25/23 06:46 Estimat Average Glucose 131 mg/dl 11/23/23 06:00 Hemoglobin A1c 6.2 % (4.5-5.6) H 11/23/23 06:00 Lactate 2.0 mmol/L (0.4-2.0) 11/22/23 16:40 Calcium 8.9 mg/dl (8.6-10.3) 11/25/23 06:46 Magnesium 1.5 mg/dl (1.7-2.4) L 11/25/23 06:46 Total Bilirubin 0.4 mg/dl (0.2-1.0) 11/22/23 16:40 AST 13 U/L (13-39) 11/22/23 16:40 ALT 10 U/L (7-52) 11/22/23 16:40 Alkaline Phosphatase 62 U/L (34-104) 11/22/23 16:40 Troponin I High Sens 10.4 pg/ml (0-14) 11/22/23 16:40 Total Protein 7.5 gm/dl (6.0-8.3) 11/22/23 16:40 Albumin 3.8 gm/dl (3.4-5.0) 11/22/23 16:40 Globulin 3.7 gm/dl (2.5-4.0) 11/22/23 16:40 Albumin/Globulin Ratio 1.0 (0.9-2) 11/22/23 16:40 Lipase 45 U/L (11-82) 11/22/23 16:40 Urine Color See Comment 11/22/23 16:28 Urine Appearance Turbid (Clear) A 11/22/23 16:28 Urine pH Not Reportable 11/22/23 16:28 Ur Specific [place] 1.017 (1.000-1.030) 11/22/23 16:28 Urine Protein Not Reportable 11/22/23 16:28 Urine Glucose (UA) Not Reportable 11/22/23 16:28 Urine Ketones Not Reportable 11/22/23 16:28 Urine Blood Not Reportable 11/22/23 16:28 Urine Nitrite Not Reportable 11/22/23 16:28 Urine Bilirubin Not Reportable 11/22/23 16:28 Urine Urobilinogen Not Reportable 11/22/23 16:28 Ur Leukocyte Esterase Not Reportable 11/22/23 16:28 Urine RBC 3-5 /hpf (0-2) H 11/22/23 16:28 Urine WBC >50 /hpf (0-5) H 11/22/23 16:28 Ur Epithelial Cells 3-5 /hpf (0-2) H 11/22/23 16:28 Urine Bacteria 1+ (None Seen) H 11/22/23 16:28 Urine Yeast Present (None Prsent) A 11/22/23 16:28 Impressions Abdomen/Pelvis CT 11/22/23 16:36 CT OF THE ABDOMEN AND PELVIS WITH CONTRAST CLINICAL HISTORY: Diffuse abdominal pain. Tenderness to palpation. COMPARISON STUDY: CT of the abdomen and pelvis October 31, 2023. KUB November 01, 2023. TECHNIQUE: Following IV administration of 94 mL of Optiray, axial images of the abdomen and pelvis were obtained from the lung bases to the proximal femurs. Images were reviewed in the axial, sagittal, and coronal planes. IV contrast was administered without complication. Automated exposure control was utilized for the study. A dose lowering technique was utilized adhering to the principles of ALARA. CT DOSE: 799.46 mGy.cm FINDINGS: Subpleural opacities within the lower lungs represent atelectasis. There is no pneumatosis, free air or portal venous gas. Mild biliary ductal dilatation is similar to prior exam and likely related to cholecystectomy. Diverticulum of the second portion of the duodenum is noted. Spleen, adrenal glands and pancreas are unremarkable. Low-attenuation bilateral renal lesions favor cysts. A few subcentimeter renal lesions are too small to characterize but are likely benign. There is no right hydronephrosis. Mild left hydronephrosis is noted with mild urothelial thickening of the left collecting system. No ureteral calculi are identified. A few small bilateral renal calculi measure up to 2 mm. There is moderate renal cortical thinning. There is no evidence for a bowel obstruction. Colonic diverticulosis without evidence for acute diverticulitis. Infrarenal abdominal aorta is ectatic. There is extensive plaque within the abdominal aorta. There are no acute fractures within the visualized skeletal structures. Lumbar spine levoscoliosis is incidentally noted. There is mild bladder wall thickening. IMPRESSION: 1. Left ureteral stent in place. Mild left hydronephrosis. No ureteral calculi. 2. Urothelial thickening of the left collecting system and bladder wall thickening. The findings could be correlated with urinalysis to exclude an infectious process. 3. A few small bilateral renal calculi. 4. Colonic diverticulosis. No evidence for acute diverticulitis. 5. No bowel obstruction. ACT 112: Negative or not required by law. Electronically signed by: Kevin Marvin M.D. 11/22/2023 6:02 PM Medications Administered Current Inpatient Medications Acetaminophen (Acetaminophen 325 Mg Tab) 650 mg PO Q4H PRN PRN Reason: Pain or Fever Stop: 12/23/23 00:29 Last Admin: 11/24/23 21:06 Dose: 650 mg Aspirin (Aspirin 81 Mg Ectab) [facility] [place]: 12/23/23 08:59 Last Admin: 11/25/23 08:40 Dose: 81 mg Calcitriol (Calcitriol 0.25 Mcg Capsule) 1 mcg [facility] [place]: 12/23/23 08:59 Last Admin: 11/25/23 08:40 Dose: 1 mcg Clopidogrel Bisulfate (Clopidogrel Bisulfate 75 Mg Tab) 75 [facility] [place]: 12/23/23 08:59 Last Admin: 11/25/23 08:40 Dose: 75 mg Dorzolamide/Timolol (Dorzolamide/Timolol 22.3/6.8mg/Ml 10 Ml Btl) 1 drops OPB HS [facility] Stop: 12/23/23 20:59 Last Admin: 11/24/23 21:06 Dose: 1 drops Duloxetine HCl (Duloxetine Hcl 60 Mg Cap) 60 [facility] [place]: 12/23/23 08:59 Last Admin: 11/25/23 08:41 Dose: 60 mg Furosemide (Furosemide 40 Mg Tab) 40 [facility] [place] 12/23/23 08:59 Last Admin: 11/25/23 08:41 Dose: 40 mg Heparin Sodium (Beef Lung) (Heparin 10 Unit/Ml 5 Ml Flush) 5 ml FLUSH PRN PRN PRN Reason: Flush Stop: 12/23/23 09:08 Heparin Sodium (Porcine) (Heparin Sod 5,000 Unit/0.5 Ml Vial) 5,000 units SQ Q8 [facility] Stop: 12/23/23 13:59 Last Admin: 11/25/23 06:01 Dose: Not Given Cefepime HCl 1,000 mg/ Syringe 10 mls @ 5 mls/min IV Q12H [facility]; Protocol Stop: 12/03/23 08:59 Last Admin: 11/25/23 08:45 Dose: 5 mls/min Latanoprost (Latanoprost 0.005% Op Soln 2.5 Ml Btl) 1 drops OPB AMHS [facility] Stop: 12/23/23 08:59 Last Admin: 11/25/23 08:41 Dose: 1 drops Losartan Potassium (Losartan Potassium 25 Mg Tab) 12.5 mg PO DAILY [facility] Stop: 12/23/23 08:59 Last Admin: 11/23/23 08:18 Dose: 12.5 mg Magnesium Chloride (Magnesium Chloride W/Calcium 64mg Delayed Rel Tab) 64 mg PO BID [facility] Stop: 12/23/23 08:59 Last Admin: 11/25/23 08:42 Dose: 64 mg Metoprolol Succinate (Metoprolol Succ 25mg Ext Rel Tab) 50 mg PO QAM [facility] Stop: 12/23/23 08:59 Last Admin: 11/24/23 21:07 Dose: 50 mg Metoprolol Succinate (Metoprolol Succ 25mg Ext Rel Tab) 25 mg PO [facility] Stop: 12/23/23 20:59 Last Admin: 11/24/23 21:08 Dose: 25 mg Miscellaneous (Order Awaiting Action: Latanoprostene Bunod [Vyzulta] 0.024 % Drops) 1 each N/A QS [facility] Stop: 12/23/23 07:59 Last Admin: 11/25/23 08:39 Dose: Not Given Multivitamins (Multivitamin Tab) 1 [facility] [place]: 12/23/23 08:59 Last Admin: 11/25/23 08:42 Dose: 1 tab Nitroglycerin (Nitroglycerin Sl 0.4 Mg/Tab Tab) 0.4 mg SL Q5M PRN PRN Reason: Chest Pain Stop: 12/23/23 00:29 Pantoprazole Sodium (Pantoprazole 40 Mg Tab) 40 mg PO BID [facility] Stop: 12/23/23 08:59 Last Admin: 11/25/23 08:43 Dose: 40 mg Phenazopyridine HCl (Phenazopyridine Hcl 100 Mg Tab) 100 mg PO TID PRN PRN Reason: pain Stop: 12/23/23 00:29 Last Admin: 11/24/23 21:07 Dose: 100 mg Polyethylene Glycol (Polyethylene (Miralax) 17 Gm Pack) 17 gm PO DAILY PRN PRN Reason: Constipation Stop: 12/23/23 00:29 Potassium Chloride (Potassium Chloride 20 Meq/15 Ml Udc) 20 meq PO [facility] Stop: 12/25/23 08:59 Last Admin: 11/25/23 08:43 Dose: 20 meq Rosuvastatin Calcium (Rosuvastatin Calcium 10 Mg Tab) 10 mg PO [facility] Stop: 12/23/23 20:59 Last Admin: 11/24/23 21:08 Dose: 10 mg Tamsulosin HCl (Tamsulosin Hcl 0.4 Mg Cap) 0.4 mg PO QAM [facility] Stop: 12/23/23 08:59 Last Admin: 11/25/23 08:43 Dose: 0.4 mg
[2023-11-25 20:00] VITALS: RESP 20
[2023-11-26 11:36] VITALS: PULSE 110; TEMP 97.7; O2SAT 93
--- NOTE | 2023-11-26 15:06 | Discharge Summary ---
Date of Service November 26, 2023 Admission HPI Per Admitting Provider 82-year-old female with past medical history significant for dyslipidemia, surgical hypoparathyroidism, prediabetes, peripheral artery disease, paroxysmal atrial tachycardia, tachybradycardia syndrome, hypertension, moderate aortic regurgitation, first-degree AV block, GERD, CKD stage III, classical migraines, sensorineural hearing loss both ears, polyneuropathy, open-angle glaucoma, presents with abdominal pain and back pain and burning micturition and found to have recurrent UTI. Patient currently resting comfortably. States had headache earlier in the morning but currently subsided. No runny nose or sore throat. No difficulty swallowing. No chest pain or shortness of breath. Currently no nausea. Moving bowels okay. Denies any blood in the stools or black stools. Denies any hematuria. Hemodynamics are okay. Recent admissions and medical issues: In September patient had severe sepsis and acute UTI and was s/p left ureteral stent placement on 09/25/2023 by urology and also found to have bladder mass at that time. She was scheduled for repeat surgery on 11/01 but patient ended up in the hospital with acute on chronic combined systolic and diastolic CHF and also had atrial tachycardia and paroxys mal atrial fibrillation and during that admission patient also had cardiac cath with drug-eluting stent to LAD. Patient also found to have early tachybradycardia syndrome possible on a higher dose of metoprolol .Because of fall risk anticoagulation with Eliquis was not started currently on aspirin and Plavix. Patient was again admitted on 10/31/2023 with recurrent complicated urinary tract infection. Cultures grew Klebsiella she was discharged on cefpodoxime .During that admission she also had atrial tachycardia initially amiodarone was started but because of prolonged QT it was discontinued and metoprolol dose was increased. And there was a plan for definitive stone surgery and TURP on 11/09. Patient followed-up with urology on 11/11/23 and since cardiology recommended at least 4 weeks of aspirin and Plavix for drug-eluting stent from stent placement and seems daughter told urology that patient has not been on these medications it was decided to continue aspirin and Plavix for nex t couple of weeks and hold Plavix 5 days prior to surgery. Urology planning to see her in next 3 to 4 weeks. Past medical history. As mentioned above Past surgical history. Cardiac cath and stent placement. Left ureteral stent placement. EGD. EGD with biopsy. Parathyroidectomy. Appendectomy. Cholecystectomy. Lumbar disc excision. Removal of pilonidal cyst. Social history. . Lives with daughter. Quit smoking 1986. No alcohol use. No drug use. Family history. Father had prostate cancer. Mother had uterine cancer. Brother had back problems. Daughter has back problems. Admission Exam Per Admitting Provider Physical Exam Physical Exam: General- Not in distress Head- atraumatic Eyes- PERRL. ENT- oropharynx clear Neck- supple, no JVD. Lungs- clear to auscultation no wheezing or crackles Heart- regular rhythm; no murmur, no gallop. Abdomen- normal bowel sounds, soft, nontender, no distension. Extremities- no pretibial edema, no erythema seen Neuro- alert, oriented PERRL, no facial palsy; no dysarthria; moves extremities Principal Diagnosis Complicated UTI Discharge Exam Physical Exam Physical Exam: General-chronic ill-appearing, elderly female sitting in chair Head- atraumatic Eyes- PERRL, EOMI, anicteric ENT- oropharynx clear Neck- supple, no JVD, no adenopathy, no thyromegaly; carotids +2/2, no bruits appreciated Lungs- clear to auscultation and percussion Heart- regular rhythm; no murmur, no gallop, no rub appreciated Abdomen- normal bowel sounds, soft, nontender, no masses or hepatosplenomegaly Extremities- no pretibial edema, no calf tenderness; peripheral pulses intact Neuro- alert, oriented x 3; PERRL, EOMI; no focal deficits Skin- warm & dry Discharge Data Allergies Allergy/AdvReac Type Severity Reaction Status Date / Time No Known Allergies Allergy Verified 11/22/23 17:53 Consultations 11/22/23 19:53 ED Decision to Admit Stat 11/23/23 08:00 Consult Urology Routine Procedures Performed None Ordered Studies 11/22/23 16:36 CT abd pelvis IV con only Stat Laboratory Results WBC 6.61 K/ul (4.8-10.8) 11/25/23 06:46 RBC 3.77 M/uL (4.20-5.40) L 11/25/23 06:46 Hgb 10.9 g/dl (12.0-16.0) L 11/25/23 06:46 Hct 33.4 % (37.0-47.0) L 11/25/23 06:46 MCV 88.6 fL (80.0-100.0) 11/25/23 06:46 MCH 28.9 pg (25.0-34.0) 11/25/23 06:46 MCHC 32.6 g/dL (32.0-36.0) 11/25/23 06:46 RDW Std Deviation 41.8 fL (36.4-46.3) 11/25/23 06:46 RDW Coeff of Didi 13.0 % (11.5-14.5) 11/25/23 06:46 Plt Count 284 K/uL (130-400) 11/25/23 06:46 MPV 9.0 fL (9.4-12.4) L 11/25/23 06:46 Immature Gran % (Auto) 0.6 % 11/23/23 06:00 Neut % (Auto) 71.3 % 11/23/23 06:00 Lymph % (Auto) 15.7 % 11/23/23 06:00 [place] % (Auto) 7.6 % 11/23/23 06:00 Eos % (Auto) 4.0 % 11/23/23 06:00 Baso % (Auto) 0.8 % 11/23/23 06:00 Neut # (Auto) 5.16 K/uL (1.40-6.50) 11/23/23 06:00 Lymph # (Auto) 1.14 K/uL (1.20-3.40) L 11/23/23 06:00 [place] # (Auto) 0.55 K/uL (0.11-0.59) 11/23/23 06:00 Eos # (Auto) 0.29 K/uL (0.00-0.50) 11/23/23 06:00 Baso # (Auto) 0.06 K/uL (0.00-0.20) 11/23/23 06:00 Immature Gran # (Auto) 0.04 K/uL (0.01-0.20) 11/23/23 06:00 Sodium 140 mmol/L (136-145) 11/25/23 06:46 Potassium 3.9 mmol/L (3.5-5.1) 11/25/23 06:46 Chloride 104 mmol/L (98-107) 11/25/23 06:46 Carbon Dioxide 29 mmol/L (21-32) 11/25/23 06:46 Anion Gap 7 (3-11) 11/25/23 06:46 BUN 17 mg/dl (6-23) 11/25/23 06:46 Creatinine 1.13 mg/dl (0.6-1.2) 11/25/23 06:46 Est Cr Clr Drug Dosing 34.8 ml/min 11/25/23 06:46 Est GFR ( Amer) 52.4 ml/min 11/25/23 06:46 Est GFR (Non-Af Amer) 45.2 ml/min 11/25/23 06:46 BUN/Creatinine Ratio 15.0 (10-20) 11/25/23 06:46 Glucose 121 mg/dl (70-99(Fasting)) H 11/25/23 06:46 Estimat Average Glucose 131 mg/dl 11/23/23 06:00 Hemoglobin A1c 6.2 % (4.5-5.6) H 11/23/23 06:00 Lactate 2.0 mmol/L (0.4-2.0) 11/22/23 16:40 Calcium 8.9 mg/dl (8.6-10.3) 11/25/23 06:46 Magnesium 1.5 mg/dl (1.7-2.4) L 11/25/23 06:46 Total Bilirubin 0.4 mg/dl (0.2-1.0) 11/22/23 16:40 AST 13 U/L (13-39) 11/22/23 16:40 ALT 10 U/L (7-52) 11/22/23 16:40 Alkaline Phosphatase 62 U/L (34-104) 11/22/23 16:40 Troponin I High Sens 10.4 pg/ml (0-14) 11/22/23 16:40 Total Protein 7.5 gm/dl (6.0-8.3) 11/22/23 16:40 Albumin 3.8 gm/dl (3.4-5.0) 11/22/23 16:40 Globulin 3.7 gm/dl (2.5-4.0) 11/22/23 16:40 Albumin/Globulin Ratio 1.0 (0.9-2) 11/22/23 16:40 Lipase 45 U/L (11-82) 11/22/23 16:40 Urine Color See Comment 11/22/23 16:28 Urine Appearance Turbid (Clear) A 11/22/23 16:28 Urine pH Not Reportable 11/22/23 16:28 Ur Specific [place] 1.017 (1.000-1.030) 11/22/23 16:28 Urine Protein Not Reportable 11/22/23 16:28 Urine Glucose (UA) Not Reportable 11/22/23 16:28 Urine Ketones Not Reportable 11/22/23 16:28 Urine Blood Not Reportable 11/22/23 16:28 Urine Nitrite Not Reportable 11/22/23 16:28 Urine Bilirubin Not Reportable 11/22/23 16:28 Urine Urobilinogen Not Reportable 11/22/23 16:28 Ur Leukocyte Esterase Not Reportable 11/22/23 16:28 Urine RBC 3-5 /hpf (0-2) H 11/22/23 16:28 Urine WBC >50 /hpf (0-5) H 11/22/23 16:28 Ur Epithelial Cells 3-5 /hpf (0-2) H 11/22/23 16:28 Urine Bacteria 1+ (None Seen) H 11/22/23 16:28 Urine Yeast Present (None Prsent) A 11/22/23 16:28 Impressions Abdomen/Pelvis CT 11/22/23 16:36 CT OF THE ABDOMEN AND PELVIS WITH CONTRAST CLINICAL HISTORY: Diffuse abdominal pain. Tenderness to palpation. COMPARISON STUDY: CT of the abdomen and pelvis October 31, 2023. KUB November 01, 2023. TECHNIQUE: Following IV administration of 94 mL of Optiray, axial images of the abdomen and pelvis were obtained from the lung bases to the proximal femurs. Images were reviewed in the axial, sagittal, and coronal planes. IV contrast was administered without complication. Automated exposure control was utilized for the study. A dose lowering technique was utilized adhering to the principles of ALARA. CT DOSE: 799.46 mGy.cm FINDINGS: Subpleural opacities within the lower lungs represent atelectasis. There is no pneumatosis, free air or portal venous gas. Mild biliary ductal dilatation is similar to prior exam and likely related to cholecystectomy. Diverticulum of the second portion of the duodenum is noted. Spleen, adrenal glands and pancreas are unremarkable. Low-attenuation bilateral renal lesions favor cysts. A few subcentimeter renal lesions are too small to characterize but are likely benign. There is no right hydronephrosis. Mild left hydronephrosis is noted with mild urothelial thickening of the left collecting system. No ureteral calculi are identified. A few small bilateral renal calculi measure up to 2 mm. There is moderate renal cortical thinning. There is no evidence for a bowel obstruction. Colonic diverticulosis without evidence for acute diverticulitis. Infrarenal abdominal aorta is ectatic. There is extensive plaque within the abdominal aorta. There are no acute fractures within the visualized skeletal structures. Lumbar spine levoscoliosis is incidentally noted. There is mild bladder wall thickening. IMPRESSION: 1. Left ureteral stent in place. Mild left hydronephrosis. No ureteral calculi. 2. Urothelial thickening of the left collecting system and bladder wall thickening. The findings could be correlated with urinalysis to exclude an infectious process. 3. A few small bilateral renal calculi. 4. Colonic diverticulosis. No evidence for acute diverticulitis. 5. No bowel obstruction. ACT 112: Negative or not required by law. Electronically signed by: Kevin Marvin M.D. 11/22/2023 6:02 PM Hospital Course (1) Acute UTI: 82-year-old female with past medical history significant for dyslipidemia, surgical hypoparathyroidism, prediabetes, peripheral artery disease, paroxysmal atrial tachycardia, tachybradycardia syndrome, hypertension, moderate aortic regurgitation, first-degree AV block, GERD, CKD stage III, classical migraines, sensorineural hearing loss both ears, polyneuropathy, open-angle glaucoma admitted with abdominal pain and back pain and burning micturition and found to have recurrent complicated UTI. Recent admissions and medical issues: In September patient had severe sepsis and acute UTI and was s/p left ureteral stent placement on 09/25/2023 by urology and also found to have bladder mass at that time. She was scheduled for repeat surgery on 11/01 but patient ended up in the hospital with acute on chronic combined systolic and diastolic CHF and also had atrial tachycardia and p aroxysmal atrial fibrillation and during that admission patient also had cardiac cath with drug-eluting stent to LAD. Patient also found to have early tachybradycardia syndrome possible on a higher dose of metoprolol .Because of fall risk anticoagulation with Eliquis was not started currently on aspirin and Plavix. Patient was again admitted on 10/31/2023 with recurrent complicated urinary tract infection. Cultures grew Klebsiella she was discharged on cefpodoxime .During that admission she also had atrial tachycardia initially amiodarone was started but because of prolonged QT it was discontinued and metoprolol dose was increased. And there was a plan for definitive stone surgery and TURP on 11/09. Patient followed-up with urology on 11/11/23 and since cardiology recommended at least 4 weeks of aspirin and Plavix for drug-eluting stent from stent placement and seems daughter told urology that patient has not been on these medications it was decided to continue aspirin and Plavix for next couple of weeks and hold Plavix 5 days prior to surgery. Urology planning to see her in next 3 to 4 weeks. Acute complicated UTI Recurrent UTIs LUTS H/O left ureteral stone s/p left ureteral stent placement Nephrolithiasis, bladder mass --CT ABD:Left ureteral stent in place. Mild left hydronephrosis. No ureteral calculi. Urothelial thickening of the left collecting system and bladder wall thickening. The findings could be correlated with urinalysis to exclude an infectious process. A few small bilateral renal calculi. Colonic diverticulosis. No evidence for acute diverticulitis. No bowel obstruction. -- Blood culture reviewed and neg --Urine culture: More than 3 type of organisms, all high counts. Repeat showed pinpoint growth. Prior culture showed Klebsiella -- IV cefepime started Plan for TURBT on 12/10/[address] Tiwari Needs to hold Plavix 5 days prior to surgery Completed IV fluids Urology was consulted PT/OT consults. Pt has ambulatory dysfunction. Her daughter and MANPREET Jacobsen said this is baseleine for her. They decline rehab. They have [facility] Needs follow-up with urology on discharge as above Hypomagnesemia Repleted and monitored electrolytes as needed Atrial tachycardia Paroxysmal atrial fibrillation Early tachybradycardia syndrome Continue metoprolol Not on anticoagulation due to fall risk On aspirin and Plavix monitor History of CAD status post drug-eluting stent On aspirin, Plavix, beta-sav and statin Chronic systolic and diastolic CHF Continue Lasix, metoprolol, losartan Monitored volume status She is euvolemic on discharge Hypertension Continue losartan, metoprolol Also on Lasix, tamsulosin Hyperlipidemia Continue statin Prediabetes HbA1c 6.2 Diabetic diet CKD III Renal function at baseline Monitor DVT Px: Heparin SQ CODE STATUS Full code Home Health Attestation I certify that this patient is under my care and that I, or a physicians enrichment assistant working with me, had a face to-face encounter that meets the home health [id number] encounter requirements with this patient. The encounter with the patient was in whole, or in part, for the following medical condition, which is the primary reason for home health care (list medical condition): recurrent uti, bladder mass, recent ureteral stent I certify that, based on my findings, the following services are medically necessary home health services: My clinical findings support the need for the above services because: Home Safety Assessment OT Assess ADL Status and Restore Function w ADLs PT Assessment for Endurance / Balance / Strength PT Eval for Safety and Mobility PT Eval for Safety, Gait Training, Assistive Devices PT Gait and Balance Training, Strengthening and Safety Skilled Nsg Assessment Skilled Nsg Assess Pt Illness, Disease and Sx Monitoring Teach on Disease Management and Interventions Further, I certify that my clinical findings support that this patient is homebound (i.e. absences from home require considerable and taxing effort and are for medical reasons or zoroastrianism services or infrequently or of short duration when for other reasons) because: Transportation Assistance/Unable to Leave Home Unassisted Certification for Home Health Services: Based on the above findings, I certify that this patient is confined to the home and needs intermittent jail care, physical therapy and/or speech therapy or continues to need occupational therapy. The patient is under my care, and I have initiated the establishment of the plan of care. This patient will be followed by a physician who will periodically review the plan of care. Total Time Total Time Spent Total Time Spent (In Minutes): A total of 60 minutes was spent on discharge planning, documentation and discussion of case with consultants and her daughter Discharge Plan Discharge Items Patient Disposition: Home - Self-Care Reason For Visit: RECURRENT UTI, HX OF ATRIAL TACHYCARDIA Discharge Diagnosis: Complicated UTI Recurrent bladder mass Recent ureteral stent Activity: Resume your previous activity Activity Comment: Patient has 03/11 care by her daughter and home health services Non-emergency contact: Primary Care Provider and Urologist Call non-emergency contact if: you have any medication questions and your symptoms worsen Follow-up/Referrals: Toya Wu DO [Outside Practitioners] - (Date & Time 12/02/2023 2:00 PM Provider Toya Wu DO Department [facility] ) Diet: Heart Healthy Addtl Attending Provider Instructions: Follow-up with Dr. Tiwari on 12/09 for proposed urologic procedure Hold Plavix 5 days prior to procedure Continue Cipro 250 mg twice daily until proposed urologic procedure Check BMP and CBC at hospital follow-up appointment Pending Studies at Discharge: No Stand-Alone Forms: My [facility] Medications and DC Order Prescriptions: New losartan 25 mg Tablet 12.5 mg PO DAILY Qty: 30 1RF ciprofloxacin HCl [Cipro] 250 mg tablet 250 mg PO BID Qty: 30 0RF Continued latanoprost [Xalatan] 0.005 % drops 1 drp [facility] dorzolamide-timolol [Cosopt] 22.3-6.8 mg/mL drops 1 drp OPB HS duloxetine [Cymbalta] 60 mg capsule,delayed release(DR/EC) 60 mg PO QAM multivitamin Tablet 1 tab PO QAM omeprazole 20 mg Tablet,Delayed Release (Dr/Ec) 20 mg PO BID aspirin [Ed Low Dose Aspirin] 81 mg tablet,delayed release (DR/EC) 81 mg PO QAM calcitriol 0.5 mcg Capsule 1 mcg PO QAM rosuvastatin 10 mg Tablet 10 mg PO HS tamsulosin [Flomax] 0.4 mg capsule 0.4 mg PO QAM metoprolol succinate 25 mg tablet extended release 24 hr See Rx Instructions .ROUTE .COMPLEX Rx Instructions: Takes 50 mg in the morning, 25 mg in the evening furosemide 40 mg Tablet 40 mg PO QAM Qty: 30 0RF clopidogrel 75 mg Tablet 75 mg PO QAM Qty: 30 0RF magnesium chloride [Mag 64] 64 mg Tablet,Delayed Release (Dr/Ec) 64 mg PO BID Qty: 60 1RF potassium chloride 20 mEq Tablet,Er Particles/Crystals 20 meq PO QAM Qty: 30 0RF phenazopyridine 100 mg tablet 100 mg PO TID PRN (Reason: pain) Qty: 30 0RF Vyzulta 0.024 % Drops 1 drp OPB HS Discontinued losartan 25 mg Tablet 12.5 mg PO DAILY Discharge Orders: Discharge Order (Routine); Ordered 11/26/23 Ordered By: Hernan Abernathy Admission Data Admit Date/Time: 11/22/23 22:24 Attending Provider: Hernan Abernathy Admit Provider: Shayne Hale Primary Care Provider: Hernan Fernández Other Providers: Shayne Hale; Colton Ballesteros; Artemio Schmitt; Todd Harris; Toya Sanz; Miguel Leija; Sunshine Unger; Manisha Stacy; Jimmy Tiwari; Jessica Dawson; De Quinteros; Ketan Coates; Eric Majano; Donnie Angelo
[2023-11-26 15:11] VITALS: BP 149/76
== END 2023-11-26 16:04 | disposition home health service (06) | DRG 690 ==
LOC: ED 16:11 → SUATTDRO 22:24 → 2W 22:24
DX: N13.6 Pyonephrosis; Z96.0 Presence of urogenital implants; I35.1 Nonrheumatic aortic (valve) insufficiency; G62.9 Polyneuropathy, unspecified; I48.0 Paroxysmal atrial fibrillation; E83.42 Hypomagnesemia; I13.0 Hypertensive heart and chronic kidney disease with heart failure and stage 1 through stage 4 chronic kidney disease, or unspecified chronic kidney disease; H90.3 Sensorineural hearing loss, bilateral; I47.19 Other supraventricular tachycardia; E11.42 Type 2 diabetes mellitus with diabetic polyneuropathy; E20.89 Other specified hypoparathyroidism; I49.5 Sick sinus syndrome; N18.30 Chronic kidney disease, stage 3 unspecified; N32.9 Bladder disorder, unspecified; I50.42 Chronic combined systolic (congestive) and diastolic (congestive) heart failure; R73.03 Prediabetes; E78.5 Hyperlipidemia, unspecified; I73.9 Peripheral vascular disease, unspecified

== ENCOUNTER 2023-12-03 07:55 | Inpatient (IN) ==
--- NOTE | 2023-11-05 14:55 | Anesthesiology Consultation ---
Date of Service November 05, 2023 Assessment & Plan (1) Encounter for pre-operative examination: - Check BSG AM DOS - Check CBC DOS (anemia noted during recent admission in setting of acute illness, will recheck level DOS to reassess/ensure stability) - [facility] admission (10/2023): Per 11/04/23 discharge summary, "..presents with abdominal pain and also found to have atrial tachycardia with heart rates in 140s which improved after 1 dose of IV Lopressor.. CAT scan showing possible ileus.. Patient was recently in the hospital and discharged on 10/29/23 for acute on chronic combined systolic and diastolic CHF and also had atrial tachycardia and paroxysmal atrial fibrillation .During that admission also had cardiac cath with drug-eluting stent to the LAD. Also tachybradycardia syndrome with bradycardia possibly on higher dose of metoprolol and because risk of fall anticoagulation with Eliquis was not started and she is on currently on aspirin and Plavix. Patient was also admitted in the early October with complicated UTI with Pseudomonas bacteremia treated with antibiotics. Patient also had severe sepsis and acute UTI in and was s/p left ureteral stent placement on 09/25/2023 by urology and also found to have bladder mass at the time. Plan for definitive stone surgery and TURBT scheduled for 11/09." - Recent cardiac stent (10/26/23): Done at [facility]- CLAUDE x1 to LAD. Surgeon's office aware of recent cardiac stent. Per Jimmy at surgeon's office, surgeon requesting patient off blood thinners prior to given surgery- he was advised that this will need to be formally approved by cardiology before doing so given recent cardiac stent. Case (including recent cardiac stent/cardiac hx/hospitalizations) reviewed in detail by Dr. Handy. He feels patient acceptable risk to proceed with given surgery pending cardiac clearance for surgery and cardiac approval to hold blood thinners (per surgeon request). Jimmy with surgeon's office states he will coordinate/obtain. Surgeon's office states plan at this point is likely to postpone surgery date of 11/10/23 given patient still taking blood thinners as of PAT visit 11/05/23 phone interview. Chart Review Chart Review: Patient NOT seen in Pre Admission Testing History Surgery Operation Date: 11/10/23 09:45 Proposed Procedures p Cystoscopy, Ureteronephroscopy, Retrograde Pyelogram, Possible Ureteral Dilation, Laser Destruction or Extraction of the Stone, Insertion or Exchange of Stent Catheter left, - Jimmy Tiwari MD s Transurethral Resection Bladder Tumor - Jimmy Tiwari MD Height/Weight Height: 5 ft 4 in Weight: 63.503 kg Allergies Allergy/AdvReac Type Severity Reaction Status Date / Time No Known Allergies Allergy Verified 11/05/23 13:53 Medications Home Medications Medication Instructions Recorded Confirmed Last Taken multivitamin 1 tab PO QAM 05/03/18 11/05/23 10/31/23 omeprazole 20 mg tablet,delayed 20 mg PO BID 05/03/18 11/05/23 10/31/23 08:00 release dorzolamide 22.3 mg-timolol 6.8 1 drp OPB 06/01/18 11/05/23 10/30/23 mg/mL eye drops (Cosopt) duloxetine 60 mg capsule,delayed 60 mg PO QAM 06/01/18 11/05/23 10/31/23 release (Cymbalta) latanoprost 0.005 % eye drops 1 drp OPB [facility] 06/01/18 11/05/23 10/31/23 08:00 (Xalatan) aspirin 81 mg tablet,delayed 81 mg PO QAM 06/24/20 11/05/23 10/31/23 release (Ed Low Dose Aspirin) calcitriol 0.5 mcg capsule 1 mcg PO QAM 09/25/23 11/05/23 10/31/23 rosuvastatin 10 mg tablet 10 mg PO 09/25/23 11/05/23 10/30/23 latanoprostene bunod 0.024 % eye 1 drp OPB 10/13/23 11/05/23 10/30/23 drops (Vyzulta) losartan 25 mg tablet 12.5 mg (1/2 x 25 mg) PO QAM 30 10/22/23 11/05/23 10/31/23 days #15 tabs clopidogrel 75 mg tablet 75 mg PO QAM #30 tabs 10/29/23 11/05/23 10/31/23 furosemide 40 mg tablet 40 mg PO QAM #30 tabs 10/29/23 11/05/23 10/31/23 cefpodoxime 200 mg tablet 200 mg PO BID 7 days #14 tabs 11/04/23 11/05/23 Unknown magnesium chloride 64 mg 64 mg PO BID #60 tabs 11/04/23 11/05/23 Unknown (magnesium chloride) tablet,delayed release (Mag 64) phenazopyridine 100 mg tablet 100 mg PO TID PRN pain #30 tabs 11/04/23 11/05/23 Unknown potassium chloride 20 mEq 20 meq PO QAM #30 tabs 11/04/23 11/05/23 Unknown tablet,extended release(part/cryst) metoprolol succinate 25 mg 25 - 50 mg PO UD 11/05/23 11/05/23 Unknown tablet,extended release 24 hr tamsulosin 0.4 mg capsule (Flomax) 0.4 mg PO QAM kidney stone 11/05/23 11/05/23 Unknown Past Medical History Medical History (Updated 11/05/23 @ 14:50 by Jodie Melendez) Atrial fibrillation Follows with [facility] cardio Atrial tachycardia, paroxysmal Bilateral tinnitus CAD (coronary artery disease) Stent 10/26/23, [facility] Congestive heart failure Diabetes mellitus type 2, uncomplicated Per [facility] records GERD (gastroesophageal reflux disease) Glaucoma H/O parathyroidectomy History of hydronephrosis Hx of migraines Hyperlipidemia Hypertension Nephrolithiasis Neuropathy Feet, legs Wenckebach Follows with [facility] cardio Past Family History Family History Other Cancer Past Surgical History Surgical History History of back surgery lower back, 1984 History of esophagogastroduodenoscopy (EGD) Hx of appendectomy Hx of bilateral cataract extraction Hx of cardiac cath Stent x1, [facility] (10/26/23) Hx of cholecystectomy Hx of colonoscopy Hx of heart artery stent Stent x1, [facility] (10/26/23) S/P cystoscopy with ureteral stent placement 09/2023, [facility] Social History Smoking Status: Former smoker tobacco type: cigarettes Do You Dip or Chew Tobacco: No Smoking End Date: 50 years ago Hx Alcohol Use: No Hx Substance Use: No substance use type: does not use Lab Results Anesthesia Preop Results Results Anesthesia Widget: WBC 6.70 K/ul (4.8-10.8) 11/03/23 Hgb 9.8 g/dl (12.0-16.0) L 11/03/23 Hct 31.7 % (37.0-47.0) L 11/03/23 Plt 229 K/uL (130-400) 11/03/23 Na 142 mmol/L (136-145) 11/04/23 K 3.2 mmol/L (3.5-5.1) L 11/04/23 Cl 102 mmol/L (98-107) 11/04/23 CO2 30 mmol/L (21-32) 11/04/23 BUN 13 mg/dl (6-23) 11/04/23 Creat 0.97 mg/dl (0.6-1.2) 11/04/23 Glucose Level 119 mg/dl (70-99(Fasting)) H 11/04/23 PT 12.1 Seconds (9.0-12.0) H 10/31/23 PTT 28 Seconds (21-31) 10/31/23 INR 1.1 (0.9-1.1) 10/31/23 TSH 1.724 uIu/ml (0.300-4.500) 10/31/23 HA1c 6.1 % (4.5-5.6) H 10/23/23 Urine Color See Comment 10/31/23 Urine Appearance Clear (Clear) 10/31/23 Urine pH Not Reportable 10/31/23 Urine Specific [place] 1.010 (1.000-1.030) 10/31/23 Urine Protein Not Reportable 10/31/23 Urine Glucose (UA) Not Reportable 10/31/23 Urine Ketones Not Reportable 10/31/23 Urine Blood Not Reportable 10/31/23 Urine Nitrite Not Reportable 10/31/23 Urine Bilirubin Not Reportable 10/31/23 Urine Urobilinogen Not Reportable 10/31/23 Urine Leukocyte Esterase Not Reportable 10/31/23 Urine WBC (Auto) 21-50 /hpf (0-5) H 10/23/23 Urine RBC (Auto) >20 /hpf (0-2) H 10/23/23 Urine Hyaline Casts (Auto) 0-2 /lpf (0-2) 10/23/23 Urine Epithelial Cells (Auto) 6-10 /hpf (0-2) H 10/23/23 Urine Bacteria (Auto) None Seen (None Seen) 10/23/23 Testing Laboratory Results Urine culture (10/31/23): Klebsiella pneumonia Electrocardiogram Date: 11/03/23 SR with PACs at 61bpm. Low voltage QRS. TWA, consider anterolateral ischemia. Prolonged QT. Chest X-Ray Date: 10/31/23 FINDINGS: No lines and tubes are seen. Calcified aortic knob is seen. Lungs are underinflated but clear. No evidence of pleural effusion or pneumothorax. IMPRESSION: No acute chest disease. Echocardiogram Date: 10/23/23 LVEF 40-45%. Severe HK mid and apical septum, inferior bolden. Moderate cLVH. Atrial tachycardia on onset of study converted to sinus rhythm during imaging. Moderate AR. Cardiac Catheterization Date: 10/26/23 1. Single vessel coronary artery [id number]% earlymid LAD (IFR 0.82). 2. Normal intracardiac filling pressure 3. Successful PCI of earlymid LAD with single drug-eluting stent (3.0 x 15 mm [place]; postdilated with 3.5 NC). Other Testing Head CT Date: 10/31/23 Indication listed: confusion IMPRESSION: Mild cerebral atrophy and periventricular white matter low density consistent with chronic small vessel disease and/or senescent changes. The brain is otherwise unremarkable. No acute large vessel infarct or intracranial hemorrhage is seen.
[2023-12-03] MEDS: LACTATED RINGER'S 1,000 ML IV SCH ×2 (08:30→19:00)
[2023-12-03 08:35] LABS: Basophils # (auto) 0.04 K/uL (0.00-0.20); Basophils % (auto) 0.3 %; Eosinophils # (auto) 0.02 K/uL (0.00-0.50); Eosinophils % (auto) 0.2 %; Hematocrit (blood only) 34.2 % (37.0-47.0); Hemoglobin 11.2 g/dl (12.0-16.0); Immature Granulocytes # (auto) 0.16 K/uL (0.01-0.20); Immature Granulocytes % (auto) 1.3 %; Lymphocytes # (auto) 1.78 K/uL (1.20-3.40); Lymphocytes % (auto) 14.2 %; Mean Corpuscular Hemoglobin 28.9 pg (25.0-34.0); Mean Corpuscular Hgb Conc 32.7 g/dL (32.0-36.0); Mean Corpuscular Volume 88.1 fL (80.0-100.0); Mean Platelet Volume 8.8 fL (9.4-12.4); Monocytes # (auto) 0.96 K/uL (0.11-0.59); Monocytes % (auto) 7.6 %; Neutrophils # (auto) 9.61 K/uL (1.40-6.50); Neutrophils % (auto) 76.4 %; Platelet Count 451 K/uL (130-400); RDW Coefficient of Variation 13.4 % (11.5-14.5); RDW Standard Deviation 43.1 fL (36.4-46.3); Red Blood Count 3.88 M/uL (4.20-5.40); White Blood Count 12.57 K/ul (4.8-10.8)
--- NOTE | 2023-12-03 08:46 | History & Physical Bridge Note ---
Date of Service December 03, 2023 History & Physical Bridge Note I have examined the patient, reviewed the History & Physical and in the interval since the performance of the History & Physical I have noted the following changes of clinical significance: no changes noted
[2023-12-03] MEDS ORDERED: LIDOCAINE 2% 2 ML VIAL/AMP(20MG/ML) INFIL ONE (09:01)
[2023-12-03] MEDS ORDERED: ONDANSETRON INJ 2 MG/ML 2 ML VIAL ONE (09:01)
[2023-12-03] MEDS ORDERED: fentaNYL citrate PF 100 MCG/2 ML VIAL ONE (09:01)
[2023-12-03] MEDS ORDERED: METOPROLOL TARTRATE 1 MG/ML VIAL IV ONE ×2 (09:01→09:43)
[2023-12-03] MEDS ORDERED: DEXAMETHASONE SOD INJ 4 MG/ML VIAL ONE (09:01)
[2023-12-03] MEDS ORDERED: PROPOFOL IV EMULSION 10 MG/ML 20 ML VIAL IV ONE (09:01)
[2023-12-03] MEDS ORDERED: ROCURONIUM BROMIDE 10 MG/ML 5 ML VIAL IV ONE (09:01)
[2023-12-03] MEDS ORDERED: SUGAMMADEX SODIUM 200 MG/2 ML VIAL IV ONE (09:01)
[2023-12-03] MEDS ORDERED: ePHEDrine sulfate 50 MG/ML AMP IV PRN (09:35)
[2023-12-03] MEDS: ceFAZolin 2000MG 2,000 MG/15 ML SYR IV SCH (09:35)
[2023-12-03] MEDS ORDERED: ATROPINE SULFATE 0.1 MG/ML 10ML SYR IV PRN (09:35)
--- NOTE | 2023-12-03 11:01 | Operative Report ---
PG Post Operative Report Pre & Post Diagnosis Operation Date: 12/03/23 09:20 Pre-Op Diagnosis: (1) Left ureteral calculus (2) bladder mass Post-Op Diagnosis: Passed left ureteral stone I identified the patient and participated in the time-out.: Yes Procedure Operation Date: 12/03/23 09:20 Actual Procedures Cystoscopy, left ureteroscopy, left ureteral stent exchange Surgeon Jimmy Tiwari MD Sanitizer None Estimated Blood Loss 5 Findings See Below Stent appeared to have been encrusted and was likely not draining well Ureteroscopy did not identify any stones in the ureter or kidney. Small, pos sible intraparenchymal stone seen in the kidney was left in place. No tumors appreciated within the bladder Specimens Urine from left kidney for culture Drains 6 [place] by 24 cm double-J ureteral stent in the left ureter, strings attached to facilitate removal 16 [place] Salazar catheter per urethra Anesthesia Type General Complications none Disposition Accompanied Patient To Recovery: Yes Disposition: Recovery Room Indications This is an 83-year-old female followed by urology for nephrolithiasis. She recently underwent ureteral stent placement in the setting of ureteral stone and UTI. At that time, she was noted to have a lesion on the right wall of the bladder concerning for tumor. She returns to the OR today for ureteroscopy, stone removal and transurethral resection of bladder tumor. Description of Procedure The patient was identified in the holding area and informed consent was confirmed. She was marked on the left side, then was taken to the operating room where general anesthesia was initiated. She was placed in the dorsal lithotomy position with all pressure points appropriately padded. She was prepped and draped in the usual sterile fashion and a preoperative timeout was performed. A well-lubricated cystoscope was inserted per urethra and panendoscopy was performed. The urethra was normal with no strictures or mucosal abnormalities. The bladder had cloudy urine, suspicious for incomplete emptying. I flushed the bladder several times until it was clear. She seemed to be having bladder spasms at this point. The end of the ureteral stent was visible from the left ureteral orifice. A pair of stent graspers was used to withdraw the stent to the urethral meatus. The stent was encrusted and a wire could not be advanced through. The zip wire was instead advanced alongside the stent up to the kidney. The stent was removed. Alongside the wire, I advanced a flexible ureteroscope and used this to survey the ureter and the kidney. There was some debris in the ureter which was removed with a wire basket. Although this initially had a stonelike appearance, it was all soft tissue. No stones were identified. The urine in the kidney was cloudy as well, suggesting that the stent had not been draining well. Due to the cloudiness, I could not thoroughly survey the kidney at this point. The flexible scope was removed. Over the wire I placed a ureteral access sheath and then used this to position a second wire which was excluded as a safety wire. With the sheath in place, I aspirated and irrigated the kidney until I was able to inspect the calyces. A sample of the urine was collected and sent for culture. No stones were identified in the kidney. Exit ureteroscopy was performed. The ureter was irritated but no overt injuries were appreciated. Again, no stones were identified. Over the wire, I placed a 6 [place] by 24 cm double-J ureteral stent. Proximal curl was visualized in the kidney on x-ray. The distal curl was seen in the bladder. Strings were left attached and secured to her left thigh. At this point I turned my attention to the bladder tumor seen previously. The resectoscope was inserted and used to thoroughly surveyed the bladder. She was having fewer bladder spasms at this point. The entire right wall and then the entire bladder were thoroughly surveyed and the tumor could not be identified. There was some irritated mucosa at the bladder dome, but there were no papillary changes and this was more consistent with having an indwelling stent. Since there was no suspicious tissue in the bladder, no tumor resection was performed. At this point the bladder was drained and all instrumentation was removed. The patient was then awakened from anesthesia and was brought to the PACU in stable condition. I attest to the content of the Intraoperative Record and any orders documented therein. Any exceptions are noted below.
[2023-12-03] MEDS: ONDANSETRON INJ 2 MG/ML 2 ML VIAL IV PRN (11:03)
[2023-12-03] MEDS: fentaNYL citrate PF 100 MCG/2 ML VIAL IV PRN (11:04)
--- NOTE | 2023-12-03 11:19 | Fluoroscopy Report ---
FL KUB CLINICAL HISTORY: Left ureteral stent COMPARISON STUDY: None. FLUOROSCOPY TIME: 5 seconds FLUOROSCOPY IMAGES: 1 Ka,r: 0.5 mGy FINDINGS: Single fluoroscopic spot image of the left abdomen demonstrates placement of a left uretera l stent. Only proximal portion is identified but appears in good position. IMPRESSION: Fluoroscopic assistance as above. ACT 112: Negative or not required by law. Electronically signed by: Dakota Cueva M.D. 12/03/2023 11:17 AM
--- NOTE | 2023-12-03 11:40 | Anesthesiology Progress Note ---
Date of Service December 03, 2023 Anesthesia Post Procedure Vital Signs Vital Signs: Temp Pulse Pulse Resp BP BP Pulse Ox 12/03/23 11:25 116 H 18 147/84 H 99 12/03/23 11:15 120 H 20 140/84 99 12/03/23 11:05 111 H 17 167/74 H 98 12/03/23 10:55 36.3 C L 112 H 19 156/75 H 100 12/03/23 08:37 36.7 C 132 H 22 130/68 96 12/03/23 08:35 110 H 20 118/66 94 O2 Del Method O2 Flow Rate 12/03/23 11:25 Nasal Cannula 2 12/03/23 11:15 Nasal Cannula 2 12/03/23 11:05 Nasal Cannula 2 12/03/23 10:55 Nasal Cannula 2 12/03/23 08:37 Room Air 12/03/23 08:35 Room Air Pain Intensity Abdomen: Pain Intensity: 0 Transfer of Care Handoff Completed per policy Notes Mental Status: alert / awake / arousable Patient Amnestic to Procedure: Yes Nausea / Vomiting: adequately controlled Pain: adequately controlled Airway Patency, RR, SpO2: stable & adequate BP & HR: stable & adequate Hydration State: stable & adequate Anesthetic Complications: no major complications apparent and Pt Satisfied with anesthetic care
[2023-12-03 12:07] LABS: Basophils # (auto) 0.04 K/uL (0.00-0.20); Basophils % (auto) 0.4 %; Eosinophils # (auto) 0.01 K/uL (0.00-0.50); Eosinophils % (auto) 0.1 %; Hematocrit (blood only) 33.9 % (37.0-47.0); Hemoglobin 10.8 g/dl (12.0-16.0); Immature Granulocytes # (auto) 0.18 K/uL (0.01-0.20); Immature Granulocytes % (auto) 1.7 %; Lymphocytes # (auto) 0.78 K/uL (1.20-3.40); Lymphocytes % (auto) 7.3 %; Mean Corpuscular Hemoglobin 28.7 pg (25.0-34.0); Mean Corpuscular Hgb Conc 31.9 g/dL (32.0-36.0); Mean Corpuscular Volume 90.2 fL (80.0-100.0); Mean Platelet Volume 8.7 fL (9.4-12.4); Monocytes # (auto) 0.44 K/uL (0.11-0.59); Monocytes % (auto) 4.1 %; Neutrophils % (auto) 86.4 %; Platelet Count 364 K/uL (130-400); RDW Coefficient of Variation 13.4 % (11.5-14.5); RDW Standard Deviation 44.5 fL (36.4-46.3); Red Blood Count 3.76 M/uL (4.20-5.40); White Blood Count 10.75 K/ul (4.8-10.8)
[2023-12-03 12:24] LABS: BUN Creatinine Ratio 23.6 (10-20); Calcium 9.3 mg/dl (8.6-10.3); Creatinine Clr Calc Pharmacy 33.5 ml/min; Est GFR (African American) 53.8 ml/min; Est GFR (Non-African American) 46.4 ml/min; Potassium 4.1 mmol/L (3.5-5.1)
--- OUTSIDE RECORDS SUMMARY | 2023-12-03 12:26 | External Medical Summary | Summary of Care ---
Author Name Unknown Organization [facility] Address [address] [address] Phone [phone] Care Team Providers Care Bird Tender Name Role Phone Toya Wu DO Primary Care Provider [phone] Encounter Details Date Type Department Care Team (Late st Contact Info) Description 11/26/2023 Orders Only PATIENT PORTAL DO NOT DELETE THIS DEPT USED BY ON[address] [facility] [id number] Allergies No known active allergiesdocumented as of this encounter (statuses as of 11/26/2023) Medications Medication Sig Dispensed Refills Start Date [...] as of this encounter (statuses as of 11/26/2023) Active Problems Problem Noted Date Diagnosed Date [...] as of this encounter (statuses as of 11/26/2023) Resolved Problems Problem Noted Date Diagnosed Date [...] as of this encounter (statuses as of 11/26/2023) Immunizations Name Administration Dates Next Due COVID-19 mRNA, LNP-s, No Pre serve, 2-Dose Series (Divitel) 02/06/2021,06/30/2020,06/09/2020 Pneumococcal Conjugate Vacc, 13 Valent (Prevnar) [...] No 11/05/2023 Does the household have a [facility] source of income? (Household - for ages [...] 01/26/2024 1:30 PM EDT Office Visit Cardiology, [facility] [address] [address] Megan Villarreal CRNP [address] [place] [address] [place] [address] 03/08/2024 1:20 PM EST Office Visit Family Practice [facility] [address] [address] Toya Wu, [address] [place] [address] Health Maintenance Due Date Last Done Comments [...] D LEVEL ONCE IN A LIFETIME-USE SMARTSET# [id number] Completed 02/25/2023, 08/07/2022, 02/19/2017, Additional history exists [...] Power of Attor brenna? No Care Teams Bird Tender Relationship Specialty Start Date End Date Toya Wu DO [address] [place] [address] PCP - General Family Medicine 02/25/23 documented as of this encounter
--- OUTSIDE RECORDS SUMMARY | 2023-12-03 12:26 | External Medical Summary | Summary of Care ---
Author Name Unknown Organization [facility] Address [address] [place] [place] [address] Phone [phone] Care Team Providers Care Market Asset Protection Manager Name Role Phone Toya Wu DO Primary Care Provider [phone] Encounter Details Date Type Department Care Team (Late st Contact Info) Description 11/25/2023 Population Health External Data Unspecified Department Allergies No known active allergiesdocumented as of this encounter (statuses as of 11/25/2023) Medications Medication Sig Dispensed Refills Start Date [...] as of this encounter (statuses as of 11/25/2023) Active Problems Problem Noted Date Diagnosed Date [...] as of this encounter (statuses as of 11/25/2023) Resolved Problems Problem Noted Date Diagnosed Date [...] as of this encounter (statuses as of 11/25/2023) Immunizations Name Administration Dates Next Due COVID-19 [...] No 11/05/2023 [facility] the [facility] source [facility]? (Household - for ages [...] 01/26/2024 1:30 PM EDT Office Visit Cardiology, [facility] [address] [address] Megan Villarreal CRNP [address] [place] [address] [place] [address] 03/08/2024 1:20 PM EST Office Visit Family Practice [facility] [address] [address] Toya Wu DO [address] [place] [address] Health Maintenance Due Date Last Done Comments [...] D LEVEL ONCE IN A LIFETIME-USE SMARTSET# [id number] Completed 02/25/2023, 08/07/2022, 02/19/2017, Additional history exists [...] Power of Attor brenna? No Care Teams Market Asset Protection Manager Relationship Specialty Start Date End Date Toya Wu DO [address] [place] [address] PCP - General Family Medicine 02/25/23 documented as of this encounter
[2023-12-03] MEDS: ACETAMINOPHEN 325 MG TAB PO PRN (13:42)
[2023-12-03] MEDS: PHENAZOPYRIDINE HCL 100 MG TAB PO PRN (14:00)
--- NOTE | 2023-12-03 14:08 | Internal Medicine Consult Note ---
Date of Consultation December 03, 2023 Assessment & Plan (1) Atrial tachycardia: Left ureteral calculus Suspected bladder mass--ruled out H/O recurrent UTIs --CT ABD from 11/22/23:Left ureteral stent in place. Mild left hydronephrosis. No ureteral calculi. Urothelial thickening of the left collecting system and bladder wall thickening. The findings could be correlated with urinalysis to exclude an infectious process. A few small bilateral renal calculi. Colonic diverticulosis. No evidence for acu te diverticulitis. No bowel obstruction. --S/P Cystoscopy, left ureteroscopy, left ureteral stent exchange by Dr. Tiwari on 12/03/2023: Passed left ureteral stone. No bladder mass identifiable on cystoscopy. Previous urine cultures grew Pseudomonas, Klebsiella Continue ciprofloxacin as previously prescribed --Urine culture currently pending --Appreciate urology input Continue gentle IV fluids Monitor volume status Pain control Atrial tachycardia H/O Paroxysmal atrial fibrillation Early tachybradycardia syndrome Resume home dose of metoprolol Not on anticoagulation due to fall risk Monitor electrolytes and replace as needed History of CAD status post drug-eluting stent Continue aspirin, Plavix, metoprolol, statin Chronic systolic and diastolic CHF Continue Lasix, metoprolol, losartan Monitor volume status Currently no signs of exacerbation Hypertension Continue losartan, metoprolol Also on Lasix, tamsulosin Monitor BP and adjust medications as needed Hyperlipidemia Continue Crestor Prediabetes Last HbA1c 6.2 Diabetic diet CKD III Renal function at baseline Monitor DVT Px: Heparin SQ CODE STATUS Full code Disposition PT OT prior to discharge History of Present Illness Reason for Consultation: Medical Management Requesting Physician: Attending Physician: Jimmy Tiwari MD History of Present Illness Patient is an 83-year-old female with past medical history of coronary artery disease S/P stent, hypertension, hyperlipidemia, chronic systolic and diastolic heart failure, CKD stage III, atrial tachycardia, paroxysmal atrial fibrillation, postsurgical hypoparathyroidism, prediabetes, peripheral artery disease, moderate aortic regurgitation, first-degree AV block, GERD, hearing impairment, glaucoma and other medical problems was consulted for postop medical management. Patient underwent cystoscopy with left ureteroscopy and left ureteral stent exchange by Dr. Tiwari today. Postoperatively patient was found to be tachycardic. Patient has missed her home medication metoprolol this morning due to procedure. Patient complains of lower abdominal soreness after the procedure. No other complaints currently. Denies any history of chest pain, dyspnea, palpitations, dizziness, cough, fever, chills, headache, change in vision, nausea, vomiting, diarrhea, hematuria. Patient has been on ciprofloxacin for recurrent UTIs as previously prescribed on last admission. Allergies Allergy/AdvReac Type Severity Reaction Status Date / Time No Known Allergies Allergy Verified 12/03/23 08:10 Home Medications Medication Instructions Recorded Confirmed Type multivitamin 1 tab PO QAM 05/03/18 12/03/23 History omeprazole 20 mg tablet,delayed 20 mg PO BID 05/03/18 12/03/23 History release dorzolamide 22.3 mg-timolol 6.8 1 drp OPB HS 06/01/18 12/03/23 History mg/mL eye drops (Cosopt) duloxetine 60 mg capsule,delayed 60 mg PO QAM 06/01/18 12/03/23 History release (Cymbalta) latanoprost 0.005 % eye drops 1 drp OPB AMHS 06/01/18 12/03/23 History (Xalatan) aspirin 81 mg tablet,delayed 81 mg PO QAM 06/24/20 12/03/23 History release (Ed Low Dose Aspirin) calcitriol 0.5 mcg capsule 1 mcg PO QAM 09/25/23 12/03/23 History (Rocaltrol) rosuvastatin 10 mg tablet 10 mg PO HS 09/25/23 12/03/23 History latanoprostene bunod 0.024 % eye 1 drp OPB HS 10/13/23 12/03/23 History drops (Vyzulta) furosemide 40 mg tablet 40 mg PO QAM #30 tabs 10/29/23 12/03/23 Rx magnesium chloride 64 mg 64 mg PO BID #60 tabs 11/04/23 12/03/23 Rx (magnesium chloride) tablet,delayed release (Mag 64) potassium chloride 20 mEq 20 meq PO QAM #30 tabs 11/04/23 12/03/23 Rx tablet,extended release(part/cryst) metoprolol succinate 25 mg See Rx Instructions .Route .COMPLEX 11/05/23 12/03/23 History tablet,extended release 24 hr tamsulosin 0.4 mg capsule (Flomax) 0.4 mg PO QAM kidney stone 11/05/23 12/03/23 History ciprofloxacin HCl 250 mg tablet 250 mg PO BID #30 tabs 11/26/23 12/03/23 Rx (Cipro) clopidogrel 75 mg tablet (Plavix) 75 mg PO QAM 12/03/23 12/03/23 History losartan 25 mg tablet (Cozaar) 12.5 mg PO DAILY 12/03/23 12/03/23 History phenazopyridine 100 mg tablet 100 mg PO TID PRN pain 12/03/23 12/03/23 History (Pyridium) Patient History Medical History CAD (coronary artery disease) Stent 10/26/23, [facility] Diabetes mellitus type 2, uncomplicated Per [facility] records Atrial tachycardia, paroxysmal Hx of migraines Wenckebach Follows with [facility] Hypertension GERD (gastroesophageal reflux disease) Congestive heart failure Atrial fibrillation Follows with [facility] Nephrolithiasis History of hydronephrosis Glaucoma Bilateral tinnitus Neuropathy Feet, legs Hyperlipidemia H/O parathyroidectomy Surgical History Hx of appendectomy History of esophagogastroduodenoscopy (EGD) Hx of colonoscopy S/P cystoscopy with ureteral stent placement 09/2023, [facility] Hx of heart artery stent Stent x1, [facility] (10/26/23) Hx of cardiac cath Stent x1, [facility] (10/26/23) Hx of bilateral cataract extraction Hx of cholecystectomy History of back surgery lower back, 1984 Family History Other Cancer Social History Smoking Status: Never smoker Tobacco Type: Cigarettes Smoking End Date: 50 years ago; Second Hand Exposure: No; Do You Dip or Chew Tobacco: No; Tobacco Cessation Education Requested by Patient: No Hx Alcohol Use: No Hx Substance Use: No Preferred Language: German Communication Ability: Effective Visual Impairment: No Limitations Hearing Ability: Normal Lecturer Of Portuguese Required: No Beliefs That Will Affect Care: None marital status: / Current Living Situation: Family Current Living Situation Comment: lives with daughter How many Children do You have: 2 Other Information That Helps Us Care for You: No Feels Safe at Home: Yes Safety Concerns: Feels Safe At This Time Assistive Devices: Walker Review of Systems Review of Systems: All systems reviewed & are unremarkable except as noted in Subjective Physical Exam Physical Exam: Physical Exam: Vitals signs as noted above General Appearance:Moderately built and nourished, no apparent distress, chronic ill-appearing, elderly Head: normocephalic, Atraumatic Eyes: normal inspection, EOMI Neck: supple, Trachea midline Respiratory/Chest: Decreased breath sounds, CTA, No accessory muscle use Cardiovascular: S1, S2, No murmur, tachycardia Abdomen/GI:Soft, Non tender, Bowel sounds present Extremities/Musculoskeletal:normal inspection, no edema Neurologic/Psych:AAOX3, grossly no focal neurological deficits Skin: normal color, warm Results & Data Vital Signs (Past 12 Hours) Vital Signs Temp Pulse Pulse Resp BP BP Pulse Ox 12/03/23 13:41 36.7 C 122 H 20 172/78 H 97 12/03/23 13:10 36.7 C 121 H 18 106/68 94 12/03/23 12:45 36.8 C 123 H 18 137/76 99 12/03/23 12:30 118 H 12 122/68 96 12/03/23 12:15 120 H 20 113/63 95 12/03/23 12:00 119 H 16 137/71 95 12/03/23 11:45 116 H 16 134/82 98 12/03/23 11:35 36.4 C L 103 H 17 144/72 H 99 12/03/23 11:25 116 H 18 147/84 H 99 12/03/23 11:15 120 H 20 140/84 99 12/03/23 11:05 111 H 17 167/74 H 98 12/03/23 10:55 36.3 C L 112 H 19 156/75 H 100 12/03/23 08:37 36.7 C 132 H 22 130/68 96 12/03/23 08:35 110 H 20 118/66 94 O2 Del Method O2 Flow Rate 12/03/23 13:41 Nasal Cannula 2 12/03/23 13:10 Nasal Cannula 2 12/03/23 12:45 Nasal Cannula 2 12/03/23 12:30 Nasal Cannula 2 12/03/23 12:15 Nasal Cannula 2 12/03/23 12:00 Nasal Cannula 2 12/03/23 11:45 Nasal Cannula 2 12/03/23 11:35 Nasal Cannula 2 12/03/23 11:25 Nasal Cannula 2 12/03/23 11:15 Nasal Cannula 2 12/03/23 11:05 Nasal Cannula 2 12/03/23 10:55 Nasal Cannula 2 12/03/23 08:37 Room Air 12/03/23 08:35 Room Air Laboratory Results Short CBC 12/03/23 12/03/23 Range/Units 08:19 11:50 WBC 12.57 H 10.75 (4.8-10.8) K/ul Hgb 11.2 L 10.8 L (12.0-16.0) g/dl Hct 34.2 L 33.9 L (37.0-47.0) % Plt Count 451 H 364 (130-400) K/uL BMP 12/03/23 11:50 Sodium 136 Potassium 4.1 Chloride 98 Carbon Dioxide 29 BUN 26 H Creatinine 1.10 Glucose 170 H Calcium 9.3 ECG Additional Comments: EKG on my interpretation: Sinus tachycardia, first-degree AV block, nonspecific T wave changes. QTc 427.
[2023-12-03] MEDS: METOPROLOL SUCC 50MG EXT REL TAB PO ONE (14:31)
--- NOTE | 2023-12-03 17:17 | Electrocardiogram Report ---
Test Reason : Blood Pressure : */* mmHG Vent. Rate : 111 BPM Atrial Rate : 119 BPM P-R Int : * ms QRS Dur : 86 ms QT Int : 314 ms P-R-T Axes : * 15 39 degrees QTcB Int : 427 ms Sinus tachycardia with 1st degree A-V block Abnormal ECG When compared with ECG of 22-Nov-2023 16:37, Nonspecific T wave abnormality no longer present Confirmed by Ralph Bond ([id number]) on 12/03/2023 5:17:16 PM Referred By: Jimmy Tiwari Confirmed By: Ralph Bond
[2023-12-03] MEDS: ROSUVASTATIN CALCIUM 10 MG TAB PO SCH (21:18)
[2023-12-03] MEDS: METOPROLOL SUCC 25MG EXT REL TAB PO SCH (21:18)
[2023-12-03] MEDS: MAGNESIUM CHLORIDE W/CALCIUM 64MG DELAYED REL TAB PO SCH (21:18)
[2023-12-03] MEDS: PANTOprazole 40 MG TAB PO SCH (21:18)
[2023-12-03] MEDS: HEPARIN SOD 5,000 UNIT/0.5 ML VIAL SQ SCH (21:19)
[2023-12-03] MEDS: CIPROFLOXACIN 250 MG TAB PO SCH (21:19)
[2023-12-03] MEDS: DORZOLAMIDE/TIMOLOL 22.3/6.8MG/ML 10 ML BTL OPB SCH (21:20)
[2023-12-03] MEDS: LATANOPROST 0.005% OP SOLN 2.5 ML BTL OPB SCH (21:32)
--- NOTE | 2023-12-04 00:36 | Communication Note ---
Date of Service: December 04, 2023 Patient noted to be increasingly tachycardic and febrile overnight. Heart rate 140s, SBP 100s as per RN. Patient denies chest pain, SOB, abdominal pain. Dry cough symptoms. Patient intermittently lethargic as per RN. PPE wane Tachycardic Decreased breath sounds No abdominal tenderness Biofire respiratory panel negative. EKG as per my interpretation: Rate 140, sinus tachycardia, normal axis, T wave abnormalities septal leads AP Sepsis secondary to complicated UTI Recent instrumentation PCU transfer given tachycardia IVF CS, broaden antibiotic coverage to Zosyn (Patient has grown Enterococcus in addition to Pseudomonas on prior urine CS.) Dr. Tiwari agreeable to plan of care.
[2023-12-04] MEDS: LACTATED RINGER'S 1,000 ML IV ONE ×2 (01:10→02:36)
[2023-12-04] MEDS: ACETAMINOPHEN 325 MG TAB PO STA (01:11)
[2023-12-04] MEDS: METOPROLOL SUCC 25MG EXT REL TAB PO STA (01:11)
[2023-12-04 01:14] LABS: Magnesium 1.1 mg/dl (1.7-2.4)
[2023-12-04] MEDS: METOPROLOL SUCC 50MG EXT REL TAB PO STA (02:30)
[2023-12-04 02:38] LABS: Adenovirus PCR Not Detected (NotDetected); Bordetella parapertussis PCR Not Detected (NotDetected); Bordetella pertussis PCR Not Detected (NotDetected); Chlamydia pneumoniae PCR Not Detected (NotDetected); Coronavirus 229E PCR Not Detected (NotDetected); Coronavirus CoV-2 (COVID19)PCR Not Detected (NotDetected); Coronavirus HKU1 PCR Not Detected (NotDetected); Coronavirus NL63 PCR Not Detected (NotDetected); Coronavirus OC43PCR Not Detected (NotDetected); Human Metapneumovirus PCR Not Detected (NotDetected); Influenza A PCR Not Detected (NotDetected); Influenza B PCR Not Detected (NotDetected); Mycoplasma pneumoniae PCR Not Detected (NotDetected); Parainfluenza Virus 1 PCR Not Detected (NotDetected); Parainfluenza Virus 2 PCR Not Detected (NotDetected); Parainfluenza Virus 3 PCR Not Detected (NotDetected); Parainfluenza Virus 4 PCR Not Detected (NotDetected); Respiratory Syncytial VirusPCR Not Detected (NotDetected); Rhinovirus/Enterovirus PCR Not Detected (NotDetected)
[2023-12-04] MEDS: MAGNESIUM SULFATE / D5W 1 GM/100 ML BAG IV SCH (02:49)
[2023-12-04] MEDS: PIPERACILLIN/TAZOBACTAM 4.5 GM/100 ML BAG IV ONE (02:57)
[2023-12-04] MEDS: KETOROLAC TROMETHAMINE 15 MG/ML VIAL IV ONE (03:12)
[2023-12-04 03:34] LABS: Appearance Urine Cloudy (Clear); Bilirubin Urine Negative (Negative); Blood Urine 3+ (Negative); Color Urine Other; Glucose Urine UA Negative (Negative); Ketones Urine Negative (Negative); Leukocyte Esterase Urine 3+ (Negative); Nitrite Urine Negative (Negative); Protein Urine 2+ (Negative); Specific Gravity Urine 1.015 (1.000-1.030); Urobilinogen Urine Negative (Negative); pH Urine 5.5 (4.5-7.5)
[2023-12-04 03:49] LABS: Bacteria Urine 4+ (None Seen); Epithelial Cell Urine 0-2 /hpf (0-2); RBC Urine >20 /hpf (0-2); WBC Urine >50 /hpf (0-5)
[2023-12-04 04:08] LABS: Hematocrit (blood only) 32.1 % (37.0-47.0); Hemoglobin 10.3 g/dl (12.0-16.0); Mean Corpuscular Hemoglobin 28.9 pg (25.0-34.0); Mean Corpuscular Hgb Conc 32.1 g/dL (32.0-36.0); Mean Corpuscular Volume 90.2 fL (80.0-100.0); Mean Platelet Volume 9.1 fL (9.4-12.4); Platelet Count 347 K/uL (130-400); RDW Coefficient of Variation 13.4 % (11.5-14.5); RDW Standard Deviation 44.6 fL (36.4-46.3); Red Blood Count 3.56 M/uL (4.20-5.40); White Blood Count 18.46 K/ul (4.8-10.8)
[2023-12-04 04:26] LABS: Calcium 9.1 mg/dl (8.6-10.3); Potassium 3.7 mmol/L (3.5-5.1)
[2023-12-04 04:32] LABS: Est GFR (African American) 45.2 ml/min
[2023-12-04 05:13] LABS: Basophils # (auto) 0.04 K/uL (0.00-0.20); Basophils % (auto) 0.2 %; Eosinophils # (auto) 0.03 K/uL (0.00-0.50); Eosinophils % (auto) 0.2 %; Immature Granulocytes # (auto) 0.18 K/uL (0.01-0.20); Lymphocytes # (auto) 0.28 K/uL (1.20-3.40); Lymphocytes % (auto) 1.5 %; Monocytes # (auto) 0.46 K/uL (0.11-0.59); Monocytes % (auto) 2.5 %; Neutrophils # (auto) 17.47 K/uL (1.40-6.50); Neutrophils % (auto) 94.6 %
[2023-12-04] MEDS: POTASSIUM CHLORIDE / WTR 10 MEQ/100 ML PLCT IV SCH (05:19)
[2023-12-04] MEDS: METOPROLOL TARTRATE 1 MG/ML VIAL IV STA (05:20)
[2023-12-04] MEDS ORDERED: SODIUM CHLORIDE 0.9% 1,000 ML IV SCH (06:15)
[2023-12-04] MEDS: SODIUM CHLORIDE 0.9% 1,000 ML IV SCH (07:33)
--- NOTE | 2023-12-04 07:36 | Urology Progress Note ---
Date of Service December 04, 2023 Assessment & Plan (1) Urinary tract infection: (2) Left ureteral calculus: Plan 83-year-old female s/p ureteroscopy on 12/03/2023, now with concern for worsening UTI, developing sepsis. We will continue with broad coverage antibiotics and plan to narrow coverage as culture data becomes available. Urine and blood cultures are pending. Maintain Salazar catheter and ureteral stent for now to maximize drainage of the urinary tract. Continue with regular diet Greatly appreciate medicine assistance with comorbidities Admission and Anticipated Discharge Date Admission Date: December 03, 2023 Subjective Feeling okay this morning, denies any significant pain. Denies overt fevers/chills Was more tachycardic overnight with softer blood pressures this morning prompting increasing her of level of care, broadening antibiotic coverage. Leukocytosis this morning (WBC 18.46). Hemoglobin essentially stable at 10.3. Creatinine slightly elevated at 1.27. Urine obtained from her kidney during surgery demonstrating 4+ bacteria. Blood and urine cultures are pending. Physical Exam Physical Exam: Resting in bed, NAD Tachycardic on telemetry, HR ~110 O2 by nasal cannula, satting well Salazar catheter draining clear, slightly concentrated urine Results & Data Vital Signs (Past 12 Hours) Vital Signs Temp Pulse Pulse Pulse Resp BP BP 12/04/23 05:55 36.7 C 114 H 22 91/49 L 12/04/23 05:20 118 H 90/48 L 12/04/23 05:00 118 H 20 90/48 L 12/04/23 04:00 12/04/23 04:00 125 H 24 108/56 L 12/04/23 03:44 128 H 12/04/23 03:44 38.0 C H 129 H 22 97/51 L 12/04/23 02:59 38.2 C H 136 H 18 112/69 12/04/23 02:26 36.8 C 142 H 16 108/67 12/03/23 23:18 38.7 C H 119 H 16 12/03/23 19:45 BP Pulse Ox O2 Del Method O2 Flow Rate 12/04/23 05:55 96 Nasal Cannula 2 12/04/23 05:20 12/04/23 05:00 95 Nasal Cannula 2 12/04/23 04:00 Nasal Cannula 2 12/04/23 04:00 95 Nasal Cannula 2 12/04/23 03:44 12/04/23 03:44 95 Nasal Cannula 2 12/04/23 02:59 96 Nasal Cannula 3 12/04/23 02:26 94 Nasal Cannula 3 12/03/23 23:18 127/69 94 Nasal Cannula 3 12/03/23 19:45 Nasal Cannula 3 PG Care Time/CCT Total # of Minutes Spent Total Time Spent with Patient: Total time spent is greater than 50% in coordination of care (as documented) at patient's floor/unit and/or counseling patient: Coding Level of Care Code 86641 SUB INP/OBS CARE 2/35MIN Diagnoses Urinary tract infection N30.01 Hematuria presence: with hematuria Urinary tract infection type: acute cystitis Left ureteral calculus N20.1 (1) Urinary tract infection Hematuria presence: with hematuria Urinary tract infection type: acute cystitis Qualified Code(s): N30.01 - Acute cystitis with hematuria
[2023-12-04] MEDS: PIPERACILLIN/TAZOBACTAM 4.5 GM/100 ML BAG IV SCH (07:37)
[2023-12-04] MEDS: CALCITRIOL 0.25 MCG CAPSULE PO SCH (07:38)
[2023-12-04] MEDS: ASPIRIN 81 MG ECTAB PO SCH (07:38)
[2023-12-04] MEDS: CLOPIDOGREL BISULFATE 75 MG TAB PO SCH (07:41)
[2023-12-04] MEDS: DULoxetine HCL 60 MG CAP PO SCH (07:46)
[2023-12-04] MEDS: TAMSULOSIN HCL 0.4 MG CAP PO SCH (07:51)
[2023-12-04] MEDS: POTASSIUM CHLORIDE CRTAB 20 MEQ TABCR PO SCH (07:51)
--- NOTE | 2023-12-04 07:58 | XRay Report ---
XR chest 1V portable HISTORY: cough COMPARISON: Chest 10/31/2023. FINDINGS: There are low lung volumes. A few bibasilar linear densities favor subsegmental atelectasis or scarring. This is similar to the prior study. No new focal lung consolidations to suggest a pneum onia. No evidence for pulmonary edema. The heart is top normal in size. There are calcifications with in the aortic knob. No acute fractures. IMPRESSION: Low lung volumes with bibasilar linear densities suggesting subsegmental atelectasis. A superimposed pneumonia would be difficult to exclude by imaging. This is similar to the prior study. ACT 112: Negative or not required by law. Electronically signed by: Dakota Cueva M.D. 12/04/2023 7:57 AM
--- NOTE | 2023-12-04 08:12 | XRay Report ---
SINGLE VIEW CHEST CLINICAL HISTORY: Cough. Jugular venous distention. FINDINGS: An AP, portable, upright chest radiograph is compared to study dated 12/04/2023 and correlat ed with chest CT dated 10/23/2023. The heart is top normal in size noting atherosclerotic calcificatio n of the thoracic aorta. The pulmonary vasculature is noncongested. Chronic interstitial thickening i s similar to previous. There are small pleural effusions with dependent atelectasis. No pneumothorax is seen. The skeletal structures are osteopenic. The bony thorax is grossly intact. IMPRESSION: Small pleural effusions with dependent atelectasis. ACT 112: Negative or not required by law. Electronically signed by: Usama Jang M.D. 12/04/2023 8:10 AM
--- NOTE | 2023-12-04 08:38 | Electrocardiogram Report ---
Test Reason : Blood Pressure : */* mmHG Vent. Rate : 141 BPM Atrial Rate : 141 BPM P-R Int : 160 ms QRS Dur : 70 ms QT Int : 286 ms P-R-T Axes : * 14 28 degrees QTcB Int : 438 ms Sinus tachycardia Low voltage QRS Minor Nonspecific ST abnormality Anterior leads Abnormal ECG When compared with ECG of 03-Dec-2023 14:47, HR has increased by [address] abnormality now present Confirmed by Ralph Bond ([id number]) on 12/04/2023 8:37:53 AM Referred By: Jimmy Tiwari Confirmed By: Ralph Bond
[2023-12-04] MEDS ORDERED: FUROSEMIDE 40 MG TAB PO SCH (09:00)
[2023-12-04] MEDS ORDERED: METOPROLOL SUCC 25MG EXT REL TAB PO SCH (09:00)
[2023-12-04] MEDS ORDERED: LOSARTAN POTASSIUM 25 MG TAB PO SCH (09:00)
[2023-12-04] MEDS: METOPROLOL SUCC 50MG EXT REL TAB PO SCH (09:58)
[2023-12-04] MEDS: CEFEPIME 1,000 MG in SYRINGE 0 ML IV SCH (09:58)
[2023-12-04] MEDS: metroNIDAZOLE 500 MG/100 ML BAG IV SCH (14:33)
--- NOTE | 2023-12-04 15:06 | Hospitalist Progress Note ---
Date of Service December 04, 2023 Assessment & Plan (1) Atrial tachycardia: Plan: Left ureteral calculus Suspected bladder mass--ruled out SIRS Possible sepsis H/O recurrent UTIs --CT ABD from 11/22/23:Left ureteral stent in place. Mild left hydronephrosis. No ureteral calculi. Urothelial thickening of the left collecting system and bladder wall thickening. The findings could be correlated with urinalysis to exclude an infectious process. A few small bilateral renal calculi. Colonic diverticulosis. No evidence for acute diverticulitis. No bowel obstruction. --S/P Cystoscopy, left ureteroscopy, left ureteral stent exchange by Dr. Tiwari on 12/03/2023: Passed left ureteral stone. No bladder mass identifiable on cystoscopy. Previous urine cultures grew Pseudomonas, Klebsiella Hold ciprofloxacin --Urine culture pending --Blood culture pending --Appreciate urology input Continue IV fluids as needed Monitor volume status Pain control Started on broad-spectrum IV antibiotics cefepime based on prior cultures Will adjust antibiotics based on cultures Atrial tachycardia H/O Paroxysmal atrial fibrillation Early tachybradycardia syndrome Continue metoprolol Not on anticoagulation due to fall risk Monitor electrolytes and replace as needed Dysphagia Possible aspiration Chest x-ray showed no signs of pneumonia Empirically on IV antibiotics: IV cefepime, Flagyl Aspiration precautions Speech therapy consulted History of CAD status post drug-eluting stent Continue aspirin, Plavix, metoprolol, statin Chronic systolic and diastolic CHF Continue metoprolol Lasix, losartan on hold due to low BP Monitor volume status Resume home medications as able Hypertension Currently hypotensive Resume losartan, Lasix as able Monitor BP closely Hyperlipidemia Continue Crestor Prediabetes Last HbA1c 6.2 Diabetic diet CKD III Cr 1.2 today Renal function at baseline Monitor DVT Px: Heparin SQ CODE STATUS Full code Disposition PT OT prior to discharge Admission and Anticipated Discharge Date Admission Date: December 03, 2023 Subjective Patient is seen and examined at bedside States having chills this morning Was hypotensive overnight which improved today Had some cough associated with food intake today Discussed with patient's family at bedside Denies any abdominal pain today Denies any chest pain, dyspnea, nausea, vomiting No other complaints Review of Systems Review of Systems: All systems reviewed & are unremarkable except as noted in Subjective Physical Exam Physical Exam: Physical Exam: Vitals signs as noted above General Appearance:Moderately built and nourished, no apparent distress, chronic ill-appearing, elderly Head: normocephalic, Atraumatic Eyes: normal inspection, EOMI Neck: supple, Trachea midline Respiratory/Chest: Decreased breath sounds, CTA, No accessory muscle use Cardiovascular: S1, S2, No murmur, tachycardia Abdomen/GI:Soft, Non tender, Bowel sounds present Extremities/Musculoskeletal:normal inspection, no edema Neurologic/Psych:AAOX3, grossly no focal neurological deficits Skin: normal color, warm Results & Data Results & Data Vital Signs (Past 12 Hours) Vital Signs Temp Pulse Pulse Pulse Resp BP BP 12/04/23 12:03 100 H 33 H 12/04/23 12:00 125/72 12/04/23 12:00 125/72 12/04/23 11:45 108 H 35 H 12/04/23 11:06 92 H 26 H 12/04/23 11:00 113/56 L 12/04/23 10:39 92 H 25 H 12/04/23 10:00 130/113 H 12/04/23 10:00 126 H 27 H 12/04/23 09:03 114 H 21 12/04/23 09:00 101/61 12/04/23 08:48 103 H 23 12/04/23 08:15 97 H 20 12/04/23 08:00 12/04/23 05:55 36.7 C 114 H 22 91/49 L 12/04/23 05:20 118 H 90/48 L 12/04/23 05:00 118 H 20 90/48 L 12/04/23 04:00 12/04/23 04:00 125 H 24 108/56 L 12/04/23 03:44 128 H 12/04/23 03:44 38.0 C H 129 H 22 97/51 L 12/04/23 02:59 38.2 C H 136 H 18 112/69 Pulse Ox O2 Del Method O2 Flow Rate 12/04/23 12:03 95 Nasal Cannula 2 12/04/23 12:00 12/04/23 12:00 12/04/23 11:45 12/04/23 11:06 12/04/23 11:00 12/04/23 10:39 12/04/23 10:00 12/04/23 10:00 80 L 12/04/23 09:03 95 12/04/23 09:00 12/04/23 08:48 96 12/04/23 08:15 12/04/23 08:00 Nasal Cannula 2 12/04/23 05:55 96 Nasal Cannula 2 12/04/23 05:20 12/04/23 05:00 95 Nasal Cannula 2 12/04/23 04:00 Nasal Cannula 2 12/04/23 04:00 95 Nasal Cannula 2 12/04/23 03:44 12/04/23 03:44 95 Nasal Cannula 2 12/04/23 02:59 96 Nasal Cannula 3 Laboratory Results Short CBC 12/04/23 Range/Units 03:29 WBC 18.46 H (4.8-10.8) K/ul Hgb 10.3 L (12.0-16.0) g/dl Hct 32.1 L (37.0-47.0) % Plt Count 347 (130-400) K/uL BMP 12/04/23 03:29 Sodium 137 Potassium 3.7 Chloride 100 Carbon Dioxide 27 BUN 28 H Creatinine 1.27 H Glucose 222 H Calcium 9.1 Urine 12/03/23 Range/Units 12:12 Urine Color Other Urine Appearance Cloudy A (Clear) Urine pH 5.5 (4.5-7.5) Ur Specific [place] 1.015 (1.000-1.030) Urine Protein 2+ H (Negative) Urine Glucose (UA) Negative (Negative)
[2023-12-04] MEDS ORDERED: PROMETHAZINE 6.25 MG/50.25 ML BAG IV PRN (20:29)
[2023-12-04] MEDS: PROMETHAZINE 6.25 MG/50.25 ML BAG IV STA (20:41)
[2023-12-04] MEDS: oxyCODONE HCL IR 5 MG TAB (IMMEDIATE RELEASE) PO PRN (20:45)
[2023-12-05] MEDS: NSS + 20MEQ KCL 20 MEQ/1,000 ML BAG IV ONE (00:02)
[2023-12-05 06:57] LABS: Hematocrit (blood only) 28.8 % (37.0-47.0); Hemoglobin 9.2 g/dl (12.0-16.0); Mean Corpuscular Hemoglobin 29.2 pg (25.0-34.0); Mean Corpuscular Hgb Conc 31.9 g/dL (32.0-36.0); Mean Corpuscular Volume 91.4 fL (80.0-100.0); Mean Platelet Volume 9.1 fL (9.4-12.4); Platelet Count 271 K/uL (130-400); RDW Coefficient of Variation 13.7 % (11.5-14.5); RDW Standard Deviation 46.1 fL (36.4-46.3); Red Blood Count 3.15 M/uL (4.20-5.40); White Blood Count 11.01 K/ul (4.8-10.8)
[2023-12-05 07:19] LABS: BUN Creatinine Ratio 25.7 (10-20); Calcium 7.6 mg/dl (8.6-10.3); Creatinine Clr Calc Pharmacy 36.4 ml/min; Est GFR (African American) 59.6 ml/min; Est GFR (Non-African American) 51.4 ml/min; Magnesium 1.9 mg/dl (1.7-2.4); Potassium 4.3 mmol/L (3.5-5.1)
[2023-12-05] MEDS ORDERED: METOPROLOL SUCC 50MG EXT REL TAB PO SCH (09:00)
--- NOTE | 2023-12-05 11:19 | Urology Progress Note ---
Date of Service December 05, 2023 Assessment & Plan (1) Urinary tract infection: (2) Left ureteral calculus: Plan 83-year-old female POD 2 s/p ureteroscopy. Advanced age with multiple comorbidities. Had tachycardia and weakness after procedure. Under monitoring post op. Hospitalist have been assisting with management of issues. Concern for worsening UTI with recent procedure. We will continue with broad coverage antibiotics and plan to narrow coverage as culture data becomes available. Urine and blood cultures are pending. Maintain Salazar catheter and ureteral stent for now to maximize drainage of the urinary tract. Continue with regular diet No significant fever. Mild persistent tachycardia. White count 11.01 today. Cr 1.01 Plan to continue close monitoring and supportive care with IV abx. Can de- esculate as results come back. Monitor. Admission and Anticipated Discharge Date Admission Date: December 03, 2023 Subjective Postop from stone treatment and stent placement with Dr. Tiwari. Patient has been dealing with tachycardia. Has multiple medical issues. Has noticed some frequency and urgency. Has been resting. Has not had severe pain in the back and flank. Does have occasional burning and irritation. No severe episodes or major changes. No new nausea or vomiting. Review of Systems Review of Systems: All systems reviewed & are unremarkable except as noted in HPI & below Physical Exam Physical Exam: General: Alert in no acute distress. Advanced age. Mild tachycardia. Resting comfortably HEENT: Normocephalic Atraumatic. Inspection normal. Cranial Nerves 2-12 Grossly intact. Normal inspection of face. Normal inspection of neck. Psychologic: Normal affect. Respiratory: Nonlabored. No use of accessory muscles. No tachypnea or dyspnea. Cardiovascular: No tachycardia Skin: [place] and Dry. No rashes or visible lesions. Extremities/Lymphatics: mild edema Abdomen: Soft Non-distended. No rebound or guarding. Results & Data Vital Signs (Past 12 Hours) Vital Signs Temp Pulse Pulse Resp BP Pulse Ox O2 Del Method 12/05/23 10:22 115 H 12/05/23 08:44 Nasal Cannula 12/05/23 07:39 36.4 C L 109 H 19 116/68 96 Room Air 12/05/23 02:55 36.7 C 114 H 16 95/57 L 96 Nasal Cannula O2 Flow Rate 12/05/23 10:22 12/05/23 08:44 2 12/05/23 07:39 12/05/23 02:55 2 PG Care Time/CCT Total # of Minutes Spent Total Time Spent with Patient: Total time spent is greater than 50% in coordination of care (as documented) at patient's floor/unit and/or counseling patient: Coding Level of Care Code 75658 SUB INP/OBS CARE 3/50MIN Diagnoses Urinary tract infection N30.01 Hematuria presence: with hematuria Urinary tract infection type: acute cystitis Left ureteral calculus N20.1 (1) Urinary tract infection Hematuria presence: with hematuria Urinary tract infection type: acute cystitis Qualified Code(s): N30.01 - Acute cystitis with hematuria
[2023-12-05] MEDS ORDERED: POLYETHYLENE (MIRALAX) 17 GM PACK PO PRN (11:52)
--- NOTE | 2023-12-05 14:35 | Hospitalist Progress Note ---
Date of Service December 05, 2023 Assessment & Plan (1) Atrial tachycardia: Plan: Left ureteral calculus Suspected bladder mass--ruled out SIRS Possible sepsis due to Complicated UTI H/O recurrent UTIs --CT ABD from 11/22/23:Left ureteral stent in place. Mild left hydronephrosis. No ureteral calculi. Urothelial thickening of the left collecting system and bladder wall thickening. The findings could be correlated with urinalysis to exclude an infectious process. A few small bilateral renal calculi. Colonic diverticulosis. No evidence for acute diverticulitis. No bowel obstruction. --S/P Cystoscopy, left ureteroscopy, left ureteral stent exchange by Dr. Tiwari on 12/03/2023: Passed left ureteral stone. No bladder mass identifiable on cystoscopy. Previous urine cultures grew Pseudomonas, Klebsiella Hold ciprofloxacin --Urine culture: Tran> 100,000 colonies --Blood culture: Negative to date --Appreciate urology input Discontinue IV fluids Monitor volume status Continue IV cefepime given ? Reliability of cultures as patient already on ciprofloxacin Added fluconazole--renally dosed Clinically improving Atrial tachycardia H/O Paroxysmal atrial fibrillation Early tachybradycardia syndrome Continue metoprolol succinate 50 mg every morning, 25 mg every afternoon Not on anticoagulation due to fall risk Monitor electrolytes and replace as needed Dysphagia Possible aspiration Chest x-ray showed no signs of pneumonia Empirically on IV antibiotics: IV cefepime, Flagyl Aspiration precautions Speech therapy consulted Tolerating minced and moist diet History of CAD status post drug-eluting stent Continue aspirin, Plavix, metoprolol, statin Chronic systolic and diastolic CHF Continue metoprolol Lasix, losartan on hold due to low BP Monitor volume status Resume home medications as able Hypertension Currently hypotensive Resume losartan, Lasix as able Monitor BP closely Hyperlipidemia Continue Crestor Prediabetes Last HbA1c 6.2 Diabetic diet CKD III Cr 1.0 today Renal function at baseline Monitor DVT Px: Heparin SQ CODE STATUS Full code Disposition PT OT prior to discharge Admission and Anticipated Discharge Date Admission Date: December 03, 2023 Subjective Patient is seen and examined at bedside States feeling tired No cough today Afebrile today Blood pressure better Denies any abdominal pain today Also denies any chest pain, dyspnea, nausea, vomiting Updated patient's daughter over the phone Review of Systems Review of Systems: All systems reviewed & are unremarkable except as noted in Subjective Physical Exam Physical Exam: Physical Exam: Vitals signs as noted above General Appearance:Moderately built and nourished, no apparent distress, chronic ill-appearing, elderly Head: normocephalic, Atraumatic Eyes: normal inspection, EOMI Neck: supple, Trachea midline Respiratory/Chest: Decreased breath sounds, CTA, No accessory muscle use Cardiovascular: S1, S2, No murmur Abdomen/GI:Soft, Non tender, Bowel sounds present Extremities/Musculoskeletal:normal inspection, no edema Neurologic/Psych:AAOX3, grossly no focal neurological deficits Skin: normal color, warm Results & Data Results & Data Vital Signs (Past 12 Hours) Vital Signs Temp Pulse Pulse Resp BP Pulse Ox O2 Del Method 12/05/23 10:45 36.7 C 97 H 20 110/68 90 Nasal Cannula 12/05/23 10:22 115 H 12/05/23 08:44 Nasal Cannula 12/05/23 07:39 36.4 C L 109 H 19 116/68 96 Room Air 12/05/23 02:55 36.7 C 114 H 16 95/57 L 96 Nasal Cannula O2 Flow Rate 12/05/23 10:45 2 12/05/23 10:22 12/05/23 08:44 2 12/05/23 07:39 12/05/23 02:55 2 Laboratory Results Short CBC 12/05/23 Range/Units 06:06 WBC 11.01 H (4.8-10.8) K/ul Hgb 9.2 L (12.0-16.0) g/dl Hct 28.8 L (37.0-47.0) % Plt Count 271 (130-400) K/uL BMP 12/05/23 06:06 Sodium 137 Potassium 4.3 Chloride 105 Carbon Dioxide 27 BUN 26 H Creatinine 1.01 Glucose 125 H Calcium 7.6 L
[2023-12-05] MEDS: FLUCONAZOLE 100 MG TAB PO SCH (14:46)
[2023-12-05] MEDS: ACETAMINOPHEN 1,000 MG/100 ML VIAL IV PRN (18:03)
[2023-12-05 18:36] LABS: A calco-baum cmplx NotReported Not Detected (NotDetected); Bact fragilis Not Reported Not Detected (NotDetected); Blood Culture Id Panel See PCR Comment (NotDetected); C auris Not Reported Not Detected (NotDetected); Calbicans Not Reported DETECTED (NotDetected); Candida glabrata Not Reported Not Detected (NotDetected); Candida krusei Not Reported Not Detected (NotDetected); Cneoformans/gatti Not Reported Not Detected (NotDetected); Cparapsilosis Not Reported Not Detected (NotDetected); E cloacae compx Not Reported Not Detected (NotDetected); Efaecalis Not Reported Not Detected (NotDetected); Efaecium Not Reported Not Detected (NotDetected); Enterobacterales Not Reported Not Detected (NotDetected); Escherichia coli Not Reported Not Detected (NotDetected); H influenzae Not Reported Not Detected (NotDetected); K aerogenes Not Reported Not Detected (NotDetected); Koxytoca Not Reported Not Detected (NotDetected); Kpneumoniae grp Not Reported Not Detected (NotDetected); Lmonocyt Not Reported Not Detected (NotDetected); N meningitidis Not Reported Not Detected (NotDetected); P aeruginosa Not Reported Not Detected (NotDetected); Proteus spp Not Reported Not Detected (NotDetected); Salmonella spp Not Reported Not Detected (NotDetected); Staph lugdunensis Not Reported Not Detected (NotDetected); Staph spp. Not Reported Not Detected (NotDetected); Staphaureus Not Reported Not Detected (NotDetected); Staphepi Not Reported Not Detected (NotDetected); Stenmaltophilia Not Reported Not Detected (NotDetected); Strep agal(GrpB) Not Reported Not Detected (NotDetected); Strep pneum Not Reported Not Detected (NotDetected); Strep pyog (GrpA) Not Reported Not Detected (NotDetected); Strep spp Not Reported Not Detected (NotDetected)
[2023-12-05 18:47] LABS: Candida albicans DETECTED (NotDetected)
[2023-12-05] MEDS: CASPOFUNGIN 70 MG in SODIUM CHLORIDE 0.9% 250 ML IV ONE (19:52)
--- NOTE | 2023-12-05 21:57 | Communication Note ---
Date of Service: December 05, 2023 Patient with episodic bradycardia as per RN. Heart rate 40 to 50s. Patient asymptomatic. SBP 100s. AP Episodic bradycardia History TBS as per records. Decrease maintenance beta-sav dose for now.
[2023-12-05] MEDS: MAGNESIUM SULFATE / D5W 1 GM/100 ML BAG IV ONE (22:19)
[2023-12-06] MEDS: ACETAMINOPHEN 325 MG TAB PO PRN (05:41)
[2023-12-06 07:13] LABS: Hematocrit (blood only) 29.2 % (37.0-47.0); Hemoglobin 8.9 g/dl (12.0-16.0); Mean Corpuscular Hemoglobin 28.3 pg (25.0-34.0); Mean Corpuscular Hgb Conc 30.5 g/dL (32.0-36.0); Mean Corpuscular Volume 92.7 fL (80.0-100.0); Mean Platelet Volume 9.4 fL (9.4-12.4); Platelet Count 261 K/uL (130-400); RDW Standard Deviation 47.7 fL (36.4-46.3); Red Blood Count 3.15 M/uL (4.20-5.40); White Blood Count 8.91 K/ul (4.8-10.8)
[2023-12-06 07:32] LABS: BUN Creatinine Ratio 27.1 (10-20); Calcium 7.6 mg/dl (8.6-10.3); Creatinine Clr Calc Pharmacy 43.3 ml/min; Est GFR (African American) 73.4 ml/min; Est GFR (Non-African American) 63.4 ml/min; Magnesium 1.9 mg/dl (1.7-2.4); Potassium 4.4 mmol/L (3.5-5.1)
[2023-12-06] MEDS: METOPROLOL SUCC 25MG EXT REL TAB PO SCH (08:09)
--- NOTE | 2023-12-06 12:08 | Urology Progress Note ---
Date of Service December 06, 2023 Assessment & Plan (1) Urinary tract infection: (2) Left ureteral calculus: Plan 83-year-old female POD 3 s/p ureteroscopy. Advanced age with multiple comorbidities. Had tachycardia and weakness after procedure. Had bradycardia last evening. Under monitoring post op. Hospitalist have been assisting with management of issues. Concern for worsening UTI with recent procedure. We will continue with broad coverage antibiotics and plan to narrow coverage as culture data becomes available. Urine and blood cultures are pending. Maintain Salazar catheter and ureteral stent for now to maximize drainage of the urinary tract. No hematuria Continue with regular diet No significant fever. Mild persistent tachycardia. White count down to 8.91 today. Cr 0.85 Plan to continue close monitoring and supportive care with IV abx. Can de- esculate as results come back. Appreciate hospitalist monitoring of on going issues. Will continue to Monitor. Admission and Anticipated Discharge Date Admission Date: December 03, 2023 Subjective Postop from stone treatment and stent placement with Dr. Tiwari. Patient has been dealing with tachycardia. Has multiple medical issues. Has noticed some frequency and urgency. Has been resting. Has not had severe pain in the back and flank. Does have occasional burning and irritation. No severe episodes or major changes. No new nausea or vomiting. Review of Systems Review of Systems: All systems reviewed & are unremarkable except as noted in HPI & below Physical Exam Physical Exam: General: Alert in no acute distress. Advanced age. Mild tachycardia. Resting comfortably HEENT: Normocephalic Atraumatic. Inspection normal. Cranial Nerves 2-12 Grossly intact. Normal inspection of face. Normal inspection of neck. Psychologic: Normal affect. Respiratory: Nonlabored. No use of accessory muscles. No tachypnea or dyspnea. Cardiovascular: No tachycardia Skin: [place] and Dry. No rashes or visible lesions. Extremities/Lymphatics: mild edema Abdomen: Soft Non-distended. No rebound or guarding. : catheter in place draining clear yellow urine Results & Data Vital Signs (Past 12 Hours) Vital Signs Temp Pulse Pulse Pulse Resp BP BP 12/06/23 10:41 36.6 C 101 H 18 92/59 L 12/06/23 09:45 18 12/06/23 08:00 73 12/06/23 07:31 36.9 C 91 H 18 126/72 12/06/23 03:56 36.6 C 96 H 16 113/70 Pulse Ox O2 Del Method O2 Flow Rate 12/06/23 10:41 95 Room Air 12/06/23 09:45 92 Room Air 12/06/23 08:00 12/06/23 07:31 97 Nasal Cannula 2 12/06/23 03:56 95 Nasal Cannula 2 PG Care Time/CCT Total # of Minutes Spent Total Time Spent with Patient: Total time spent is greater than 50% in coordination of care (as documented) at patient's floor/unit and/or counseling patient: Coding Level of Care Code 78943 SUB INP/OBS CARE 3/50MIN Diagnoses Urinary tract infection N30.01 Hematuria presence: with hematuria Urinary tract infection type: acute cystitis Left ureteral calculus N20.1 (1) Urinary tract infection Hematuria presence: with hematuria Urinary tract infection type: acute cystitis Qualified Code(s): N30.01 - Acute cystitis with hematuria
--- NOTE | 2023-12-06 14:10 | Hospitalist Progress Note ---
Date of Service December 06, 2023 Assessment & Plan (1) Atrial tachycardia: Plan: Sepsis--POA Complicated UTI Candidemia H/O recurrent UTIs Left ureteral calculus Suspected bladder mass--ruled out --CT ABD from 11/22/23:Left ureteral stent in place. Mild left hydronephrosis. No ureteral calculi. Urothelial thickening of the left collecting system and bladder wall thickening. The findings could be correlated with urinalysis to exclude an infectious process. A few small bilateral renal calculi. Colonic diverticulosis. No evidence for acute diverticulitis. No bowel obstruction. --S/P Cystoscopy, left ureteroscopy, left ureteral stent exchange by Dr. Tiwari on 12/03/2023: Passed left ureteral stone. No bladder mass identifiable on cystoscopy. Previous urine cultures grew Pseudomonas, Klebsiella Hold ciprofloxacin --Urine culture: Tran> 100,000 colonies --Blood culture: + Tran albicans --Appreciate urology input Monitor volume status Continue IV cefepime given ? Reliability of cultures as patient already on ciprofloxacin Added caspofungin IV fluids as needed Consult ID for further input Follow-up final blood cultures Atrial tachycardia H/O Paroxysmal atrial fibrillation Early tachybradycardia syndrome on metoprolol succinate 50 mg QAM and 25 mg QPM at home Not on anticoagulation due to fall risk Monitor electrolytes and replace as needed Metoprolol dose decreased to 25 mg twice daily as patient blood pressure low, bradycardic intermittently Dysphagia Possible aspiration Chest x-ray showed no signs of pneumonia Empirically on IV antibiotics: IV cefepime, Flagyl Aspiration precautions Speech therapy consulted Tolerating minced and moist diet History of CAD status post drug-eluting stent Continue aspirin, Plavix, metoprolol, statin Chronic systolic and diastolic CHF Continue metoprolol Lasix, losartan on hold due to low BP Monitor volume status Resume home diuretics as able Hypertension Blood pressure low Resume losartan, Lasix as able Monitor BP closely Hyperlipidemia Continue Crestor Prediabetes Last HbA1c 6.2 Diabetic diet CKD III Renal function at baseline Monitor DVT Px: Heparin SQ CODE STATUS Full code Disposition PT OT prior to discharge Need rehab placement Admission and Anticipated Discharge Date Admission Date: December 03, 2023 Subjective Patient is seen and examined at bedside Sitting in chair during my encounter Offers no new complaints today Transiently bradycardic overnight Had PT evaluation earlier today Patient denies any recurrence of abdominal pain Also denies any chest pain, dyspnea, nausea, vomiting Review of Systems Review of Systems: All systems reviewed & are unremarkable except as noted in Subjective Physical Exam Physical Exam: Physical Exam: Vitals signs as noted above General Appearance:Moderately built and nourished, no apparent distress, chronic ill-appearing, elderly Head: normocephalic, Atraumatic Eyes: normal inspection, EOMI Neck: supple, Trachea midline Respiratory/Chest: Decreased breath sounds, + basal crackles, No accessory muscle use Cardiovascular: S1, S2, No murmur Abdomen/GI:Soft, Non tender, Bowel sounds present Extremities/Musculoskeletal:normal inspection, no edema Neurologic/Psych:AAOX3, grossly no focal neurological deficits Skin: normal color, warm Results & Data Results & Data Vital Signs (Past 12 Hours) Vital Signs Temp Pulse Pulse Pulse Resp BP BP 12/06/23 14:05 89 12/06/23 10:41 36.6 C 101 H 18 92/59 L 12/06/23 09:45 18 12/06/23 08:00 73 12/06/23 07:31 36.9 C 91 H 18 126/72 12/06/23 03:56 36.6 C 96 H 16 113/70 Pulse Ox O2 Del Method O2 Flow Rate 12/06/23 14:05 12/06/23 10:41 95 Room Air 12/06/23 09:45 92 Room Air 12/06/23 08:00 12/06/23 07:31 97 Nasal Cannula 2 12/06/23 03:56 95 Nasal Cannula 2 Laboratory Results Short CBC 12/06/23 Range/Units 06:32 WBC 8.91 (4.8-10.8) K/ul Hgb 8.9 L (12.0-16.0) g/dl Hct 29.2 L (37.0-47.0) % Plt Count 261 (130-400) K/uL BMP 12/06/23 06:32 Sodium 136 Potassium 4.4 Chloride 106 Carbon Dioxide 25 BUN 23 Creatinine 0.85 Glucose 108 H Calcium 7.6 L
[2023-12-06] MEDS: CASPOFUNGIN 50 MG in SODIUM CHLORIDE 0.9% 250 ML IV SCH (18:22)
--- NOTE | 2023-12-07 07:34 | Urology Progress Note ---
Date of Service December 07, 2023 Assessment & Plan (1) Urinary tract infection: Plan: She is currently on cefepime, metronidazole and caspofungin. Most recent blood cultures from 12/04/2023 with no bacterial growth but showing Tran. Potentially repeat blood cultures today. We will plan on ID consult. (2) Fungemia: (3) Ureteral stent present: Plan: We will plan to maintain Salazar catheter and ureteral stent for now until cultures clear, although at some point the indwelling instrumentation may act as a nidus for ongoing recurrences. Plan Greatly appreciate medicine assistance with comorbidities. Admission and Anticipated Discharge Date Admission Date: December 03, 2023 Subjective Feeling okay this morning No nausea or vomiting Heart rate has ranged in the 90s and 100s. No recent fevers. WBC decreased back to normal (8.91) on 12/05. Creatinine 0.85. Labs pending today. Urine culture and blood cultures with Tran albicans/dubliniensis. Currently on caspofungin. ID consult pending. Additionally on metronidazole and cefepime. Salazar catheter remains in place and is draining well. Sounds like she may be having some bladder spasms. Denies any overt flank pain. Physical Exam Physical Exam: Resting in bed, NAD Salazar catheter draining clear yellow urine Results & Data Vital Signs (Past 12 Hours) Vital Signs Temp Pulse Pulse Pulse Resp BP Pulse Ox 12/07/23 06:50 100 H 12/07/23 06:41 36.6 C 103 H 18 134/76 94 12/07/23 03:34 36.6 C 102 H 18 132/71 95 12/06/23 23:09 92 H 12/06/23 23:06 36.6 C 92 H 18 122/73 93 12/06/23 22:01 12/06/23 21:14 98 H 106/62 O2 Del Method 12/07/23 06:50 12/07/23 06:41 Room Air 12/07/23 03:34 Room Air 12/06/23 23:09 12/06/23 23:06 Room Air 12/06/23 22:01 Room Air 12/06/23 21:14 PG Care Time/CCT Total # of Minutes Spent Total Time Spent with Patient: Total time spent is greater than 50% in coordination of care (as documented) at patient's floor/unit and/or counseling patient: Coding Level of Care Code 07722 SUB INP/OBS CARE 05/07MIN Diagnoses Urinary tract infection N30.01 Hematuria presence: with hematuria Urinary tract infection type: acute cystitis Fungemia B49 Ureteral stent present Z96.0 (1) Urinary tract infection Hematuria presence: with hematuria Urinary tract infection type: acute cystitis Qualified Code(s): N30.01 - Acute cystitis with hematuria
[2023-12-07 08:49] LABS: BUN Creatinine Ratio 25.3 (10-20); Calcium 7.7 mg/dl (8.6-10.3); Creatinine Clr Calc Pharmacy 46.6 ml/min; Est GFR (African American) 80.2 ml/min; Est GFR (Non-African American) 69.2 ml/min; Potassium 4.4 mmol/L (3.5-5.1)
--- NOTE | 2023-12-07 10:44 | Infectious Disease Consult ---
Date of Service December 07, 2023 Telehealth Information I performed this visit using a real-time telehealth connection between my location and the patients location ([facility]). After connecting through interactive tele-video, patient was identified by name and date of and/or wristband check.Patient (or authorized healthcare account executive sales representative) was informed that this was a telemedicine visit and it was being conducted confidentially over secure lines. My office door was closed and no o ne else was present in the room with me.Patient (or authorized healthcare account executive sales representative) provided consent to proceed with the visit, expressed an understanding of privacy and security of the telemedicine visit, and gave permission to have a hospital account executive sales representative in the room in order to assist with the visit and to conduct portions of the visit, as needed. I informed the patient (or authorized healthcare account executive sales representative) that I reviewed their record and presented the opportunity for them to ask any questions regarding the visit today. The patient agreed to participate. Assessment & Plan (1) Fungemia: Plan: TTE did not reveal any vegetations recommend AMY and repeat blood cultures to document clearance (2) Urinary tract infection: Plan: On caspofungin Plan Patient who was admitted with abdominal and back pain along with dysuria .Patient was found to have wali dublinensis in her urine and also in her blood .Recommend repeating blood cultures until they clear and obtaining a AMY to assist in ruling out endocarditis .Discontinue cefepime and metronidazole and continue caspofungin duration to depend on AMY and repeat blood cultures .Thank you for allowing us to participate in the care of this patient ID will continue to follow History of Present Illness History of Present Illness 82 y/o F pmhX significant for dyslipidemia, surgical hypoparathyroidism, prediabetes, peripheral artery disease, paroxysmal atrial tachycardia, tachybradycardia syndrome, hypertension, moderate aortic regurgitation, first- degree AV block, GERD, CKD stage III, classical migraines, sensorineural hearing loss both ears, polyneuropathy, open-angle glaucoma, presented with abdominal pain and back pain and burning micturition and was found to have recurrent UTI. Patient had recent admissions in September 2023 with sepsis and acute UTI and was s/p left ureteral stent placement on 09/25/2023 by urology and also found to have bladder mass at that time. She was scheduled for repeat surgery on 11/01 but patient ended up in the hospital with acute on chronic combined systolic and diastolic CHF and also had atrial tachycardia and paroxysmal atrial fibrillation during that admission Patient also had cardiac cath with drug-eluting stent to LAD. Patient also found to have early tachybradycardia syndrome possible on a higher dose of metoprolol .Because of fall risk anticoagulation with Eliquis was not started currently on aspirin and Plavix. Patient was again admitted on 10/31/2023 with recurrent complicated urinary tract infection. Cultures grew Klebsiella she was discharged on cefpodoxime .During that admission she also had atrial tachycardia initially amiodarone was started but because of prolonged QT it was discontinued and metoprolol dose was increased.There was a plan for definitive stone surgery and TURP on 11/09. Patient followed-up with urology on 11/11/23 and since cardiology recommended at least 4 weeks of aspirin and Plavix for drug-eluting stent from stent placement and her daughter told urology that patient has not been on these medications it was decided to continue aspirin a nd Plavix for next couple of weeks and hold Plavix 5 days prior to surgery. Urology planning to see her in next 3 to 4 weeks.Her blood and urine cultures have grown wali dublinensis and she is on cefepime,metronidazole and caspofungin Allergies Allergy/AdvReac Type Severity Reaction Status Date / Time No Known Allergies Allergy Verified 12/03/23 08:10 Home Medications Medication Instructions Recorded Confirmed Type multivitamin 1 tab PO QAM 05/03/18 12/03/23 History omeprazole 20 mg tablet,delayed 20 mg PO BID 05/03/18 12/03/23 History release dorzolamide 22.3 mg-timolol 6.8 1 drp OPB 06/01/18 12/03/23 History mg/mL eye drops (Cosopt) duloxetine 60 mg capsule,delayed 60 mg PO QAM 06/01/18 12/03/23 History release (Cymbalta) latanoprost 0.005 % eye drops 1 drp OPB [facility] 06/01/18 12/03/23 History (Xalatan) aspirin 81 mg tablet,delayed 81 mg PO QAM 06/24/20 12/03/23 History release (Ed Low Dose Aspirin) calcitriol 0.5 mcg capsule 1 mcg PO QAM 09/25/23 12/03/23 History (Rocaltrol) rosuvastatin 10 mg tablet 10 mg PO HS 09/25/23 12/03/23 History latanoprostene bunod 0.024 % eye 1 drp OPB HS 10/13/23 12/03/23 History drops (Vyzulta) furosemide 40 mg tablet 40 mg PO QAM #30 tabs 10/29/23 12/03/23 Rx magnesium chloride 64 mg 64 mg PO BID #60 tabs 11/04/23 12/03/23 Rx (magnesium chloride) tablet,delayed release (Mag 64) potassium chloride 20 mEq 20 meq PO QAM #30 tabs 11/04/23 12/03/23 Rx tablet,extended release(part/cryst) metoprolol succinate 25 mg See Rx Instructions .Route .COMPLEX 11/05/23 12/03/23 History tablet,extended release 24 hr tamsulosin 0.4 mg capsule (Flomax) 0.4 mg PO QAM kidney stone 11/05/23 12/03/23 History ciprofloxacin HCl 250 mg tablet 250 mg PO BID #30 tabs 11/26/23 12/03/23 Rx (Cipro) clopidogrel 75 mg tablet (Plavix) 75 mg PO QAM 12/03/23 12/03/23 History losartan 25 mg tablet (Cozaar) 12.5 mg PO DAILY 12/03/23 12/03/23 History phenazopyridine 100 mg tablet 100 mg PO TID PRN pain 12/03/23 12/03/23 History (Pyridium) Patient History Medical History CAD (coronary artery disease) Stent 10/26/23, [facility] Diabetes mellitus type 2, uncomplicated Per [facility] records Atrial tachycardia, paroxysmal Hx of migraines Wenckebach Follows with [facility] cardio Hypertension GERD (gastroesophageal reflux disease) Congestive heart failure Atrial fibrillation Follows with [facility] cardio Nephrolithiasis History of hydronephrosis Glaucoma Bilateral tinnitus Neuropathy Feet, legs Hyperlipidemia H/O parathyroidectomy Surgical History Hx of appendectomy History of esophagogastroduodenoscopy (EGD) Hx of colonoscopy S/P cystoscopy with ureteral stent placement 09/2023, [facility] Hx of heart artery stent Stent x1, [facility] (10/26/23) Hx of cardiac cath Stent x1, [facility] (10/26/23) Hx of bilateral cataract extraction Hx of cholecystectomy History of back surgery lower back, 1984 Family History Other Cancer Social History Smoking Status: Never smoker Tobacco Type: Cigarettes Smoking End Date: 50 years ago; Second Hand Exposure: No; Do You Dip or Chew Tobacco: No; Tobacco Cessation Education Requested by Patient: No Hx Alcohol Use: No Hx Substance Use: No Preferred Language: Palauan Communication Ability: Effective Visual Impairment: No Limitations Hearing Ability: Normal Team Psychologist Required: No Beliefs That Will Affect Care: None marital status: / Current Living Situation: Family Current Living Situation Comment: lives with daughter How many Children do You have: 2 Other Information That Helps Us Care for You: No Feels Safe at Home: Yes Safety Concerns: Feels Safe At This Time Assistive Devices: Walker Review of Systems Patient awake alert responds to questions appropriately Physical Exam Patient in no respiratory distress sitting up in a chair awake alert Results & Data Vital Signs (Past 12 Hours) Vital Signs Temp Pulse Pulse Pulse Resp BP Pulse Ox 12/07/23 06:50 100 H 12/07/23 06:41 36.6 C 103 H 18 134/76 94 12/07/23 03:34 36.6 C 102 H 18 132/71 95 12/06/23 23:09 92 H 12/06/23 23:06 36.6 C 92 H 18 122/73 93 O2 Del Method 12/07/23 06:50 12/07/23 06:41 Room Air 12/07/23 03:34 Room Air 12/06/23 23:09 12/06/23 23:06 Room Air Laboratory Results Blood Culture Aerobic Preliminary 12/06/23-1213 Organism 1 Wali albicans/dubliniensis Sens No Sensitivities to Follow Blood Culture PCR Panel If viewing in EMR, results available under LAB Serology tab. Phoned positive Blood Culture Gram Stain report to KIRSTEN BORRERO on 12/05/23 at 1847 by [id number]. [place] [id number]. Blood Culture Anaerobic Preliminary 12/06/23-0400 No growth in Anaerobic bottle after 48 hours. Diagnostic Findings TTE vegetations cannot be ruled out calcified aortic valve (2) Urinary tract infection Hematuria presence: with hematuria Urinary tract infection type: acute cystitis Qualified Code(s): N30.01 - Acute cystitis with hematuria
--- NOTE | 2023-12-07 15:37 | Cardiology Consultation ---
Date of Consultation December 07, 2023 Assessment & Plan (1) Fungemia: (2) Urinary tract infection: (3) Status post insertion of drug-eluting stent into left anterior descending (LAD) artery: Plan * Patient remains on dual antiplatelet therapy given recent drug-eluting stent to the LAD in October, * Due to her known cognitive impairment and bleeding risk, during her previous hospital stay was felt that dual antiplatelet therapy with aspirin plus clopidogrel was a more appropriate treatment for than a single antiplatelet agent and anticoagulation. * She has previously been noted to have an atrial tachycardia. Amiodarone previously started but then discontinued due to concerns of QT interval and she is therefore been treated with metoprolol. Dose reduced during this hospital stay due to transient bradycardia and now remains tachycardic. * I think is reasonable to continue her current dose of metoprolol succinate 25 mg daily. * Infectious disease input noted and appreciated. Will proceed with transthoracic echocardiogram for reassessment of LV wall motion and evaluation of the valves. * Is a repeat blood culture which was obtained today is persistently positive, with to consider transesophageal echocardiogram. At present however I do not think the patient would consent to it. As noted she does have cognitive impairment at baseline, but her mental status is worse than her usual baseline with very negative and aggressive attitude noted. I discussed her case with Dr. Angelo and recommended a CT of the brain. This has been obtained, the report of which is pending. * Continue subcutaneous heparin for DVT prophylaxis pending further assessment. History of Present Illness Attending Physician: Jimmy Tiwari MD History of Present Illness Florencia Rivera is an 83 year old female seen in cardiology consultation per the request of Dr Angelo for the evaluation of tachycardia and candidemia. Patient's case known to the undersigned as I followed her during one of her several recent hospital stays in October,. At present, patient is without subjective complaint. She was sitting in the bedside chair, and was tearful because she wanted to go home. At baseline, from my previous experience the patient has noted to have a cognitive impairment consistent with dementia, but the patient was not at her baseline today, complaining about being in the hospital, and had multiple negative comments that were out of character for her. Telemetry revealed narrow complex tachycardia in the range of 110-110 bpm consistent with sinus tachycardia versus an atrial tachycardia. The patient's recent cardiac history dates back to early October, when she was hospitalized on 10/13/2023 with a complicated UTI with sepsis and Pseudomonas aeruginosa bacteremia. Congestive heart failure noted during that hospital stay with echocardiogram suggestive of stress-induced cardiomyopathy or underlying coronary disease. She was treated medically, and readmitted on 10/23/2023 with acute systolic heart failure and flash pulmonary edema. She ultimately underwent cardiac catheterization and stent to the mid LAD on 10/26/2023 and was discharged again on 10/29/2023. She was admitted a third time in October with findings of atrial tachycardia, hydronephrosis, and concern of a bladder mass. Recurrent sepsis syndrome noted at that time. Urology has followed patient during that stay with noted left ureter stent placed on 09/25/2023. Patient presented to stay initially for elective exchange of her left ureter stent and for cystoscopy for evaluation of bladder tumor. Fortunately bladder tumor found on cystoscopy, however when stent was exchanged there was concern that it had been obstructed, and after the procedure the patient developed re current sepsis. No recurrent bacteremia noted thus far however patient noted to have Tran albicans on urine culture on 11/25/2023, and again on 12/03/2023, and on a single blood culture drawn on 12/04/2023. She is now on caspofungin and cefepime has been discontinued. Allergies Allergy/AdvReac Type Severity Reaction Status Date / Time No Known Allergies Allergy Verified 12/03/23 08:10 Home Medications Medication Instructions Recorded Confirmed Type multivitamin 1 tab PO QAM 05/03/18 12/03/23 History omeprazole 20 mg tablet,delayed 20 mg PO BID 05/03/18 12/03/23 History release dorzolamide 22.3 mg-timolol 6.8 1 drp OPB HS 06/01/18 12/03/23 History mg/mL eye drops (Cosopt) duloxetine 60 mg capsule,delayed 60 mg PO QAM 06/01/18 12/03/23 History release (Cymbalta) latanoprost 0.005 % eye drops 1 drp OPB [facility] 06/01/18 12/03/23 History (Xalatan) aspirin 81 mg tablet,delayed 81 mg PO QAM 06/24/20 12/03/23 History release (Ed Low Dose Aspirin) calcitriol 0.5 mcg capsule 1 mcg PO QAM 09/25/23 12/03/23 History (Rocaltrol) rosuvastatin 10 mg tablet 10 mg PO HS 09/25/23 12/03/23 History latanoprostene bunod 0.024 % eye 1 drp OPB HS 10/13/23 12/03/23 History drops (Vyzulta) furosemide 40 mg tablet 40 mg PO QAM #30 tabs 10/29/23 12/03/23 Rx magnesium chloride 64 mg 64 mg PO BID #60 tabs 11/04/23 12/03/23 Rx (magnesium chloride) tablet,delayed release (Mag 64) potassium chloride 20 mEq 20 meq PO QAM #30 tabs 11/04/23 12/03/23 Rx tablet,extended release(part/cryst) metoprolol succinate 25 mg See Rx Instructions .Route .COMPLEX 11/05/23 12/03/23 History tablet,extended release 24 hr tamsulosin 0.4 mg capsule (Flomax) 0.4 mg PO QAM kidney stone 11/05/23 12/03/23 History ciprofloxacin HCl 250 mg tablet 250 mg PO BID #30 tabs 11/26/23 12/03/23 Rx (Cipro) clopidogrel 75 mg tablet (Plavix) 75 mg PO QAM 12/03/23 12/03/23 History losartan 25 mg tablet (Cozaar) 12.5 mg PO DAILY 12/03/23 12/03/23 History phenazopyridine 100 mg tablet 100 mg PO TID PRN pain 12/03/23 12/03/23 History (Pyridium) Patient History Medical History CAD (coronary artery disease) Stent 10/26/23, [facility] Diabetes mellitus type 2, uncomplicated Per [facility] records Atrial tachycardia, paroxysmal Hx of migraines Wenckebach Follows with [facility] cardio Hypertension GERD (gastroesophageal reflux disease) Congestive heart failure Atrial fibrillation Follows with [facility] cardio Nephrolithiasis History of hydronephrosis Glaucoma Bilateral tinnitus Neuropathy Feet, legs Hyperlipidemia H/O parathyroidectomy Surgical History Hx of appendectomy History of esophagogastroduodenoscopy (EGD) Hx of colonoscopy S/P cystoscopy with ureteral stent placement 09/2023, [facility] Hx of heart artery stent Stent x1, [facility] (10/26/23) Hx of cardiac cath Stent x1, [facility] (10/26/23) Hx of bilateral cataract extraction Hx of cholecystectomy History of back surgery lower back, 1985 Family History Other Cancer Social History Smoking Status: Never smoker Tobacco Type: Cigarettes Smoking End Date: 50 years ago; Second Hand Exposure: No; Do You Dip or Chew Tobacco: No; Tobacco Cessation Education Requested by Patient: No Hx Alcohol Use: No Hx Substance Use: No Preferred Language: Tongan Communication Ability: Effective Visual Impairment: No Limitations Hearing Ability: Normal Dress Marker Required: No Beliefs That Will Affect Care: None marital status: / Current Living Situation: Family Current Living Situation Comment: lives with daughter How many Children do You have: 2 Other Information That Helps Us Care for You: No Feels Safe at Home: Yes Safety Concerns: Feels Safe At This Time Assistive Devices: Walker Review of Systems Review of Systems: Unobtainable due to cognitive status Physical Exam Physical Exam: General: No acute distress, cognitive impairment noted Eyes: conjunctiva are pink and non-injected, sclera clear Neck: normal jugular venous pulse, no hepatojugular reflux Chest: normal shape and normal respiratory effort Lungs: clear to auscultation and percussion Cardiac Exam: - regular heart sounds, no murmurs, rubs, or gallops, no jugular venous distention Abdomen: abdomen soft, non-tender, no abnormal masses and no hepatosplenomegaly Musculoskeletal: no gait disturbance, no weakness Extremities: no edema and no cyanosis Neuro:awake, conversant, follows commands, no focal motor deficits Results & Data Vital Signs (Past 12 Hours) Vital Signs Temp Pulse Pulse Pulse Resp BP Pulse Ox 12/07/23 11:49 36.8 C 114 H 18 113/62 95 12/07/23 06:50 100 H 12/07/23 06:41 36.6 C 103 H 18 134/76 94 12/07/23 03:34 36.6 C 102 H 18 132/71 95 O2 Del Method 12/07/23 11:49 Room Air 12/07/23 06:50 12/07/23 06:41 Room Air 12/07/23 03:34 Room Air Laboratory Results Comprehensive Metabolic Panel 12/07/23 Range/Units 08:05 Sodium 137 (136-145) mmol/L Potassium 4.4 (3.5-5.1) mmol/L Chloride 104 (98-107) mmol/L Carbon Dioxide 30 (21-32) mmol/L BUN 20 (6-23) mg/dl Creatinine 0.79 (0.6-1.2) mg/dl Glucose 109 H (70-99(Fasting)) mg/dl Calcium 7.7 L (8.6-10.3) mg/dl Intake and Output 12/07/23 12/07/23 12/07/23 06:59 14:59 22:59 Intake Total 100 / 1030 360 / 360 Output Total 450 / 1375 651 / 651 Balance -350 / -345 -291 / -291 Intake: IV 100 / 560 metroNIDAZOLE 500 mg In 100 ml 100 / 300 @ 100 mls/hr IV Q8H [facility] Rx#: [id number] Oral 360 / 360 Output: Urine Amount (Catheter) 450 / 1375 650 / 650 Salazar/Indwelling 450 / 1375 650 / 650 # Bowel Movements Other: Other Intake Source Sips Weight 59.1 kg Weight Measurement Method Built in [facility] Diagnostic Findings EKG performed 12/04/2023 suggestive of sinus tachycardia versus atrial tachycardia 141 bpm. (2) Urinary tract infection Hematuria presence: with hematuria Urinary tract infection type: acute cystitis Qualified Code(s): N30.01 - Acute cystitis with hematuria
--- NOTE | 2023-12-07 17:18 | CT Scan Report ---
HEAD CT NONCONTRAST CT DOSE: 625.8 mGy.cm HISTORY: Altered mental status. TECHNIQUE: Multiaxial CT images of the head were performed without the use of intravenous contrast. A utomated exposure control was utilized for this study. A dose lowering technique was utilized adheri ng to the principles of ALARA. Comparison: Head CT 10/31/2023. Findings: The paranasal sinuses and mastoid air cells are clear. The calvarium and skull base are int act. There is no mass, hematoma, midline shift, acute infarct. White matter hypodensity is nonspecifi c but suggestive of microvascular ischemic change. The ventricles and sulci demonstrate mild age-rela dov involutional changes. Impression: No significant change compared to the prior study. No acute intracranial abnormality. ACT 112: Negative or not required by law. Electronically signed by: Dakota Cueva M.D. 12/07/2023 5:17 PM
--- NOTE | 2023-12-07 17:23 | Hospitalist Progress Note ---
Date of Service December 07, 2023 Assessment & Plan (1) Atrial tachycardia: Plan: Sepsis--POA Complicated UTI Candidemia H/O recurrent UTIs Left ureteral calculus Suspected bladder mass--ruled out --CT ABD from 11/22/23:Left ureteral stent in place. Mild left hydronephrosis. No ureteral calculi. Urothelial thickening of the left collecting system and bladder wall thickening. The findings could be correlated with urinalysis to exclude an infectious process. A few small bilateral renal calculi. Colonic diverticulosis. No evidence for acute diverticulitis. No bowel obstruction. --S/P Cystoscopy, left ureteroscopy, left ureteral stent exchange by Dr. Tiwari on 12/03/2023: Passed left ureteral stone. No bladder mass identifiable on cystoscopy. Previous urine cultures grew Pseudomonas, Klebsiella --ECHO: No regional wall motion abnormality. EF 60 to 65%. Right ventricle is normal in size and function. Aortic valve is trileaflet. Attic valve is moderately calcified. At least moderate aortic valve regurgitation is present. --ciprofloxacin discontinued --Urine culture: Tran> 100,000 colonies --Blood culture: + Tran albicans --Appreciate urology input Monitor volume status IV cefepime discontinued as recommended by ID Continue caspofungin Appreciate ID input Will repeat blood cultures: If remains positive for candidemia, will need AMY to rule out endocarditis Appreciate cardiology input Acute metabolic encephalopathy Likely secondary to UTI Delirium contributing as well CT head:No significant change compared to the prior study. No acute intracranial abnormality. 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 50 mg QAM and 25 mg QPM at home Not on anticoagulation due to fall risk Monitor electrolytes and replace as needed Metoprolol dose changed to 37.5 mg twice daily Dysphagia Possible aspiration Chest x-ray showed no signs of pneumonia Empirically on IV antibiotics: IV cefepime, Flagyl--discontinued Aspiration precautions Speech therapy consulted Tolerating minced and moist diet History of CAD status post drug-eluting stent Continue aspirin, Plavix, metoprolol, statin Chronic systolic and diastolic CHF Continue metoprolol Lasix, losartan on hold due to low BP Monitor volume status Resume home diuretics as able Hypertension Blood pressure low Resume losartan, Lasix as able Monitor BP closely Hyperlipidemia Continue Crestor Prediabetes Last HbA1c 6.2 Diabetic diet CKD III Renal function at baseline Monitor DVT Px: Heparin SQ CODE STATUS Full code Disposition PT OT prior to discharge Need rehab placement Admission and Anticipated Discharge Date Admission Date: December 03, 2023 Subjective Patient is seen and examined at bedside Pleasant and cooperative during my encounter this morning Later noticed to be confused and agitated Discussed with cardiology today Denies any chest pain, dyspnea, nausea, vomiting, abdominal pain Feels very tired today Review of Systems Review of Systems: All systems reviewed & are unremarkable except as noted in Subjective Physical Exam Physical Exam: Physical Exam: Vitals signs as noted above General Appearance:Moderately built and nourished, no apparent distress, chronic ill-appearing, elderly Head: normocephalic, Atraumatic Eyes: normal inspection, EOMI Neck: supple, Trachea midline Respiratory/Chest: Decreased breath sounds, CTA, No accessory muscle use Cardiovascular: S1, S2, No murmur Abdomen/GI:Soft, Non tender, Bowel sounds present Extremities/Musculoskeletal:normal inspection, no edema Neurologic/Psych:AAOX2, grossly no focal neurological deficits Skin: normal color, warm Results & Data Results & Data Vital Signs (Past 12 Hours) Vital Signs Temp Pulse Pulse Pulse Resp BP Pulse Ox 12/07/23 16:00 114 H 12/07/23 15:58 36.7 C 110 H 18 144/76 H 93 12/07/23 11:49 36.8 C 114 H 18 113/62 95 12/07/23 06:50 100 H 12/07/23 06:41 36.6 C 103 H 18 134/76 94 O2 Del Method 12/07/23 16:00 12/07/23 15:58 Room Air 12/07/23 11:49 Room Air 12/07/23 06:50 12/07/23 06:41 Room Air Laboratory Results [facility] 12/07/23 08:05 Sodium 137 Potassium 4.4 Chloride 104 Carbon Dioxide 30 BUN 20 Creatinine 0.79 Glucose 109 H Calcium 7.7 L
[2023-12-07] MEDS: METOPROLOL SUCC 25MG EXT REL TAB PO SCH (19:26)
[2023-12-07] MEDS ORDERED: METOPROLOL SUCC 25MG EXT REL TAB PO SCH (21:00)
[2023-12-08 07:43] LABS: Hematocrit (blood only) 31.9 % (37.0-47.0); Mean Corpuscular Hemoglobin 28.2 pg (25.0-34.0); Mean Corpuscular Hgb Conc 31.3 g/dL (32.0-36.0); Mean Corpuscular Volume 89.9 fL (80.0-100.0); Mean Platelet Volume 9.4 fL (9.4-12.4); Platelet Count 321 K/uL (130-400); RDW Coefficient of Variation 13.5 % (11.5-14.5); RDW Standard Deviation 44.5 fL (36.4-46.3); Red Blood Count 3.55 M/uL (4.20-5.40); White Blood Count 8.66 K/ul (4.8-10.8)
[2023-12-08 07:56] LABS: BUN Creatinine Ratio 22.7 (10-20); Calcium 8.2 mg/dl (8.6-10.3); Creatinine Clr Calc Pharmacy 49.1 ml/min; Est GFR (African American) 85.4 ml/min; Est GFR (Non-African American) 73.7 ml/min; Magnesium 1.6 mg/dl (1.7-2.4); Potassium 3.9 mmol/L (3.5-5.1)
--- NOTE | 2023-12-08 09:19 | Urology Progress Note ---
Date of Service December 08, 2023 Assessment & Plan (1) Urinary tract infection: (2) Fungemia: (3) Ureteral stent present: Plan - Patient afebrile, mildly tachycardic and hypertensive this morning. - Labs today show no leukocytosis, hemoglobin 10, creatinine 0.75. - Urine and blood cultures grew Tran, repeat blood culture pending. Continues on Caspofungin. - Salazar intact and draining appropriately - urine is clear yellow. - We will plan to maintain Salazar catheter and ureteral stent for now until cultures clear. - Continue supportive care. - ID and Cardiology consulted, appreciate assistance. If BCx remains positive for candidemia, will need AMY to rule out endocarditis. - Pt with periods of confusion/agitation yesterday. Head CT completed - No significant change compared to the prior study. No acute intracranial abnormality. - Continue management per medicine, ID, and cardiology recommendations - Greatly appreciate assistance with comorbidities. Admission and Anticipated Discharge Date Admission Date: December 03, 2023 Subjective Pt seen at bedside this AM Awake, resting in bed on arrival No acute distress She is pleasant and cooperative this morning Answered questions appropriately Denies any pain or discomfort at present Denies f/c/n/v Salazar intact and draining clear yellow urine Review of Systems Constitutional: as per Subjective / HPI Genitourinary: as per Subjective / HPI Physical Exam Constitutional: no acute distress Respiratory: no respiratory distress and no labored breathing Neurologic: awake Psychiatric: Orientation: alert, oriented x 3 and cooperative Genitourinary: Salazar intact Results & Data Vital Signs (Past 12 Hours) Vital Signs Temp Pulse Pulse Resp BP BP Pulse Ox 12/08/23 07:44 36.6 C 94 H 18 154/81 H 94 12/08/23 07:44 12/08/23 07:12 99 H 12/08/23 04:37 146/78 H 12/08/23 04:06 36.5 C 108 H 18 163/63 H 93 12/07/23 23:16 107 H 12/07/23 23:15 36.6 C 108 H 18 113/79 92 12/07/23 21:44 O2 Del Method 12/08/23 07:44 Room Air 12/08/23 07:44 Room Air 12/08/23 07:12 12/08/23 04:37 12/08/23 04:06 Room Air 12/07/23 23:16 12/07/23 23:15 Room Air 12/07/23 21:44 Room Air PG Care Time/CCT Total # of Minutes Spent Total Time Spent with Patient: Total time spent is greater than 50% in coordination of care (as documented) at patient's floor/unit and/or counseling patient: Coding Level of Care Code 21607 SUB INP/OBS CARE 2/35MIN Diagnoses Urinary tract infection N30.01 Hematuria presence: with hematuria Urinary tract infection type: acute cystitis Fungemia B49 Ureteral stent present Z96.0 (1) Urinary tract infection Hematuria presence: with hematuria Urinary tract infection type: acute cystitis Qualified Code(s): N30.01 - Acute cystitis with hematuria
[2023-12-08] MEDS: LOSARTAN POTASSIUM 25 MG TAB PO SCH (10:16)
[2023-12-08] MEDS: MAGNESIUM SULFATE / D5W 1 GM/100 ML BAG IV ONE (10:17)
--- NOTE | 2023-12-08 12:24 | Cardiology Progress Note ---
Date of Service December 08, 2023 Assessment & Plan (1) Fungemia: (2) Urinary tract infection: (3) Status post insertion of drug-eluting stent into left anterior descending (LAD) artery: (4) Atrial tachycardia: Plan * CT of the brain on 12/07/23 was without acute pathology * Repeat blood culture drawn on 12/06 pending. * TTecho on 12/06 technically limited with calcification of AV , vegetation could not be excluded. * LV wall motion and LVEF however have normalized. * Continue metoprolol succinate 37.5 mg BID * Plan for AMY on 12/08 * Continue subcutaneous heparin for DVT prophylaxis pending further assessment. * Attempted to reach daughter, Ann-Marie, by phone. Was not able to connect with her, but left a voice mail message and will try again. Admission and Anticipated Discharge Date Admission Date: December 03, 2023 Subjective Patient seen in cardiology follow up. Still confused, but pleasant. Telemetry reveals SR verus ectopic atrial rhythm/ atrial tachycardia with frequent PACs in the 90s. Physical Exam Physical Exam: General: No acute distress, cognitive impairment noted Eyes: conjunctiva are pink and non-injected, sclera clear Neck: normal jugular venous pulse, no hepatojugular reflux Chest: normal shape and normal respiratory effort Lungs: clear to auscultation and percussion Cardiac Exam: - regular heart sounds, no murmurs, rubs, or gallops, no jugular venous distention Abdomen: abdomen soft, non-tender, no abnormal masses and no hepatosplenomegaly Musculoskeletal: no gait disturbance, no weakness Extremities: no edema and no cyanosis Neuro:awake, conversant, follows commands, no focal motor deficits Results & Data Vital Signs (Past 12 Hours) Vital Signs Temp Pulse Pulse Resp BP BP Pulse Ox 12/08/23 11:52 36.6 C 109 H 18 127/61 92 12/08/23 07:44 36.6 C 94 H 18 154/81 H 94 12/08/23 07:44 12/08/23 07:12 99 H 12/08/23 04:37 146/78 H 12/08/23 04:06 36.5 C 108 H 18 163/63 H 93 O2 Del Method 12/08/23 11:52 Room Air 12/08/23 07:44 Room Air 12/08/23 07:44 Room Air 12/08/23 07:12 12/08/23 04:37 12/08/23 04:06 Room Air (2) Urinary tract infection Hematuria presence: with hematuria Urinary tract infection type: acute cystitis Qualified Code(s): N30.01 - Acute cystitis with hematuria
--- NOTE | 2023-12-08 15:46 | Communication Note ---
Date of Service: December 08, 2023 I saw and examined Florencia at the bedside on 12/08/2023 and had a long discussion with her daughter. She remains on caspofungin for antifungal coverage. Repeat blood cultures are negative so far. Reviewed cardiology note, AMY pending for tomorrow. Lab work from today with no leukocytosis (WBC 8.66), creatinine normal at 0.[address] from 12/07/2023 reviewed. No acute intracranial abnormality appreciated per radiology. We will continue with antifungals and await finalized blood cultures. Appreciate cardiology, internal medicine and infectious disease involvement. We will tentatively plan for ureteral stent removal on 12/09/2023. I would encourage as much as possible trying to establish a normal sleep/wake cycle and frequent reorientation to help minimize any delirium.
--- NOTE | 2023-12-08 17:23 | Hospitalist Progress Note ---
Date of Service December 08, 2023 Assessment & Plan (1) Atrial tachycardia: Plan: Sepsis--POA Complicated UTI Candidemia H/O recurrent UTIs Left ureteral calculus Suspected bladder mass--ruled out --CT ABD from 11/22/23:Left ureteral stent in place. Mild left hydronephrosis. No ureteral calculi. Urothelial thickening of the left collecting system and bladder wall thickening. The findings could be correlated with urinalysis to exclude an infectious process. A few small bilateral renal calculi. Colonic diverticulosis. No evidence for acute diverticulitis. No bowel obstruction. --S/P Cystoscopy, left ureteroscopy, left ureteral stent exchange by Dr. Tiwari on 12/03/2023: Passed left ureteral stone. No bladder mass identifiable on cystoscopy. Previous urine cultures grew Pseudomonas, Klebsiella --ECHO: No regional wall motion abnormality. EF 60 to 65%. Right ventricle is normal in size and function. Aortic valve is trileaflet. Attic valve is moderately calcified. At least moderate aortic valve regurgitation is present. --ciprofloxacin discontinued --Urine culture: Tran> 100,000 colonies --Blood culture: + Tran albicans --Repeat blood cultures negative to date --Appreciate urology input Monitor volume status IV cefepime discontinued as recommended by ID Continue caspofungin Appreciate ID input Will need AMY if repeat blood cultures remain positive Needs follow-up with urology on discharge Acute metabolic encephalopathy Likely secondary to UTI Delirium contributing as well CT head:No significant change compared to the prior study. No acute intracranial abnormality. 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 50 mg QAM and 25 mg QPM at home Not on anticoagulation due to fall risk Monitor electrolytes and replace as needed Metoprolol dose changed to 37.5 mg twice daily Dysphagia Possible aspiration Chest x-ray showed no signs of pneumonia Empirically on IV antibiotics: IV cefepime, Flagyl--discontinued Aspiration precautions Speech therapy consulted Tolerating minced and moist diet History of CAD status post drug-eluting stent Continue aspirin, Plavix, metoprolol, statin Chronic systolic and diastolic CHF Continue metoprolol Lasix, losartan Monitor volume status Resume home diuretics as able Hypertension Blood pressure better Resumed losartan Resume Lasix as able Monitor BP closely Hyperlipidemia Continue Crestor Prediabetes Last HbA1c 6.2 Diabetic diet CKD III Renal function at baseline Monitor DVT Px: Heparin SQ CODE STATUS Full code Disposition PT OT prior to discharge Need rehab placement Admission and Anticipated Discharge Date Admission Date: December 03, 2023 Subjective Patient is seen and examined at bedside Reports having some urethral pain Less agitated today Repeat blood cultures negative to date Denies any chest pain, dyspnea, nausea, vomiting, abdominal pain Poor historian Review of Systems Review of Systems: All systems reviewed & are unremarkable except as noted in Subjective Physical Exam Physical Exam: Physical Exam: Vitals signs as noted above General Appearance:Moderately built and nourished, no apparent distress, chronic ill-appearing, elderly Head: normocephalic, Atraumatic Eyes: normal inspection, EOMI Neck: supple, Trachea midline Respiratory/Chest: Decreased breath sounds, CTA, No accessory muscle use Cardiovascular: S1, S2, No murmur Abdomen/GI:Soft, Non tender, Bowel sounds present Extremities/Musculoskeletal:normal inspection, no edema Neurologic/Psych:AAOX2, grossly no focal neurological deficits Skin: normal color, warm Results & Data Results & Data Vital Signs (Past 12 Hours) Vital Signs Temp Pulse Pulse Resp BP Pulse Ox O2 Del Method 12/08/23 15:44 36.6 C 100 H 18 118/69 95 Room Air 12/08/23 14:28 107 H 12/08/23 11:52 36.6 C 109 H 18 127/61 92 Room Air 12/08/23 07:44 36.6 C 94 H 18 154/81 H 94 Room Air 12/08/23 07:44 Room Air 12/08/23 07:12 99 H Laboratory Results Short CBC 12/08/23 Range/Units 07:00 WBC 8.66 (4.8-10.8) K/ul Hgb 10.0 L (12.0-16.0) g/dl Hct 31.9 L (37.0-47.0) % Plt Count 321 (130-400) K/uL BMP 12/08/23 07:00 Sodium 138 Potassium 3.9 Chloride 104 Carbon Dioxide 28 BUN 17 Creatinine 0.75 Glucose 149 H Calcium 8.2 L
--- NOTE | 2023-12-08 17:38 | Communication Note ---
Date of Service: December 08, 2023 Informed consent for transesophageal echocardiogram obtained. In addition to going over the proposed procedure, benefits, and risks with the patient, her daughter, Ann-Marie, was also at the bedside, and participated in the conversation. Questions answered to the patient and family's satisfaction. AMY tentatively scheduled for the a.m. of 12/09/2023. Jeffrey Hayes DO
[2023-12-08] MEDS: ONDANSETRON INJ 2 MG/ML 2 ML VIAL IV PRN (20:47)
[2023-12-09 06:48] LABS: Hematocrit (blood only) 29.6 % (37.0-47.0); Hemoglobin 9.5 g/dl (12.0-16.0); Mean Corpuscular Hemoglobin 28.2 pg (25.0-34.0); Mean Corpuscular Hgb Conc 32.1 g/dL (32.0-36.0); Mean Corpuscular Volume 87.8 fL (80.0-100.0); Mean Platelet Volume 9.6 fL (9.4-12.4); Platelet Count 338 K/uL (130-400); RDW Coefficient of Variation 13.6 % (11.5-14.5); RDW Standard Deviation 43.3 fL (36.4-46.3); Red Blood Count 3.37 M/uL (4.20-5.40); White Blood Count 8.96 K/ul (4.8-10.8)
[2023-12-09 07:17] LABS: Calcium 8.3 mg/dl (8.6-10.3); Creatinine Clr Calc Pharmacy 52.6 ml/min; Est GFR (African American) 92.9 ml/min; Est GFR (Non-African American) 80.1 ml/min; Magnesium 1.7 mg/dl (1.7-2.4); Potassium 3.8 mmol/L (3.5-5.1)
--- NOTE | 2023-12-09 07:30 | Anesthesiology Consultation ---
Date of Service December 09, 2023 Assessment & Plan Chart Review Chart Review: Acceptable Risk for Surgery, Patient NOT seen in Pre Admission Testing and entry specialist initiated Consults Requested none ASA ASA3 Proposed Anesthesia Anesthesia Type: MAC Risk / Benefits Reviewed With: PT / POA / Parent / Guardian, Accepts Plan and Informed Consent Obtained (telephone consent obtained from pt's daughter, Ann-Marie Rivera @ [phone].) History Surgery Operation Date: 12/03/23 09:20 Proposed Procedures p Cystoscopy, Ureteronephroscopy, Retrograde Pyelogram, with Possible Ureteral Dilation, Laser Destruction or Extraction of the Stone, Insertion or Exchange of Stent Catheter - Left - Jimmy Tiwari MD s TURBT (Transurethral Resection of Bladder Tumor) - Jimmy Tiwari MD Operation Date: 12/09/23 07:45 Proposed Procedures p Transesophageal Echo w/Anesthesia - Randy Hayes DO Height/Weight Height: 5 ft 4 in Weight: 59.1 kg Allergies Allergy/AdvReac Type Severity Reaction Status Date / Time No Known Allergies Allergy Verified 12/03/23 08:10 Medications Home Medications Medication Instructions Recorded Confirmed Last Taken multivitamin 1 tab PO QAM 05/03/18 12/03/23 12/02/23 09:00 omeprazole 20 mg tablet,delayed 20 mg PO BID 05/03/18 12/03/23 12/02/23 22:00 release dorzolamide 22.3 mg-timolol 6.8 1 drp OPB HS 06/01/18 12/03/23 12/02/23 22:00 mg/mL eye drops (Cosopt) duloxetine 60 mg capsule,delayed 60 mg PO QAM 06/01/18 12/03/23 12/02/23 09:00 release (Cymbalta) latanoprost 0.005 % eye drops 1 drp OPB [facility] 06/01/18 12/03/23 12/02/23 22:00 (Xalatan) aspirin 81 mg tablet,delayed 81 mg PO QAM 06/24/20 12/03/23 12/02/23 09:00 release (Ed Low Dose Aspirin) calcitriol 0.5 mcg capsule 1 mcg PO QAM 09/25/23 12/03/23 12/02/23 09:00 (Rocaltrol) rosuvastatin 10 mg tablet 10 mg PO HS 09/25/23 12/03/23 12/02/23 22:00 latanoprostene bunod 0.024 % eye 1 drp OPB HS 10/13/23 12/03/23 12/02/23 22:00 drops (Vyzulta) furosemide 40 mg tablet 40 mg PO QAM #30 tabs 10/29/23 12/03/23 12/02/23 09:00 magnesium chloride 64 mg 64 mg PO BID #60 tabs 11/04/23 12/03/23 12/02/23 22:00 (magnesium chloride) tablet,delayed release (Mag 64) potassium chloride 20 mEq 20 meq PO QAM #30 tabs 11/04/23 12/03/23 12/02/23 09:00 tablet,extended release(part/cryst) metoprolol succinate 25 mg See Rx Instructions .Route .COMPLEX 11/05/23 12/03/23 12/02/23 22:00 tablet,extended release 24 hr tamsulosin 0.4 mg capsule (Flomax) 0.4 mg PO QAM kidney stone 11/05/23 12/03/23 12/02/23 09:00 ciprofloxacin HCl 250 mg tablet 250 mg PO BID #30 tabs 11/26/23 12/03/23 12/02/23 21:00 (Cipro) clopidogrel 75 mg tablet (Plavix) 75 mg PO QAM 12/03/23 12/03/23 11/26/23 09:00 losartan 25 mg tablet (Cozaar) 12.5 mg PO DAILY 12/03/23 12/03/23 12/02/23 09:00 phenazopyridine 100 mg tablet 100 mg PO TID PRN pain 12/03/23 12/03/23 Unknown (Pyridium) Active Medications Generic Name Dose Route Start Last Admin Trade Name Freq PRN Reason Stop Dose Admin Acetaminophen 650 mg 12/06/23 05:32 12/08/23 20:47 Acetaminophen 325 Mg Tab PO 01/05/24 05:31 650 mg QID PRN Administration pain/fever Aspirin 81 mg 12/04/23 09:00 12/08/23 08:34 Aspirin 81 Mg Ectab PO 01/03/24 08:59 81 mg QAM MARILY Administration Calcitriol 1 mcg 12/04/23 09:00 12/08/23 08:33 Calcitriol 0.25 Mcg Capsule PO 01/03/24 08:59 1 mcg QAM MARILY Administration Clopidogrel Bisulfate 75 mg 12/04/23 09:00 12/08/23 08:33 Clopidogrel Bisulfate 75 Mg Tab PO 01/03/24 08:59 75 mg QAM MARILY Administration Dorzolamide/Timolol 1 drops 12/03/23 21:00 12/08/23 20:30 Dorzolamide/Timolol 22.3/6.8mg/Ml 10 Ml Btl OPB 01/02/24 20:59 1 drops HS MARILY Administration Duloxetine HCl 60 mg 12/04/23 09:00 12/08/23 08:34 Duloxetine Hcl 60 Mg Cap PO 01/03/24 08:59 60 mg QAM MARILY Administration Heparin Sodium (Porcine) 5,000 units 12/03/23 21:00 12/08/23 20:30 Heparin Sod 5,000 Unit/0.5 Ml Vial SQ 01/02/24 20:59 5,000 units Q12 MARILY Administration Caspofungin 50 mg/ Sodium 260 mls @ 250 mls/hr 12/06/23 18:00 12/08/23 19:38 Chloride IV 12/19/23 17:59 Infused Q24H MARILY Infusion Protocol Latanoprost 1 drops 12/03/23 21:00 12/08/23 20:30 Latanoprost 0.005% Op Soln 2.5 Ml Btl OPB 01/02/24 20:59 1 drops AMHS MARILY Administration Losartan Potassium 12.5 mg 12/08/23 10:15 12/08/23 10:16 Losartan Potassium 25 Mg Tab PO 01/07/24 10:14 12.5 mg QAM MARILY Administration Magnesium Chloride 64 mg 12/03/23 21:00 12/08/23 20:31 Magnesium Chloride W/Calcium 64mg Delayed Rel Tab PO 01/02/24 20:59 64 mg BID MARILY Administration Metoprolol Succinate 37.5 mg 12/07/23 21:00 12/08/23 20:32 Metoprolol Succ 25mg Ext Rel Tab PO 01/06/24 20:59 37.5 mg BID MARILY Administration Miscellaneous 1 each 12/03/23 16:00 12/08/23 23:04 Vyzulta 0.024 %: Order Awaiting Action N/A 01/02/24 15:59 Not Given QS MARILY Ondansetron HCl 4 mg 12/04/23 23:38 12/08/23 20:47 Ondansetron Inj 2 Mg/Ml 2 Ml Vial IV 01/03/24 23:37 4 mg Q4H PRN Administration Nausea Pantoprazole Sodium 40 mg 12/03/23 21:00 12/08/23 20:31 Pantoprazole 40 Mg Tab PO 01/02/24 20:59 40 mg BID MARILY Administration Phenazopyridine HCl 100 mg 12/03/23 13:12 12/05/23 14:45 Phenazopyridine Hcl 100 Mg Tab PO 01/02/24 13:11 100 mg TID PRN Administration Urinary pain Potassium Chloride 20 meq 12/04/23 09:00 12/08/23 08:33 Potassium Chloride Crtab 20 Meq Tabcr PO 01/03/24 08:59 20 meq QAM MARILY Administration Rosuvastatin Calcium 10 mg 12/03/23 21:00 12/08/23 20:32 Rosuvastatin Calcium 10 Mg Tab PO 01/02/24 20:59 10 mg HS MARILY Administration Tamsulosin HCl 0.4 mg 12/04/23 09:00 12/08/23 08:34 Tamsulosin Hcl 0.4 Mg Cap PO 01/03/24 08:59 0.4 mg QAM MARILY Administration NPO Date Last Intake of Fluids: 12/08/23 Time Last Intake of Fluids: 21:00 Date Last Intake of Solids: 12/08/23 Time Last Intake of Solids: 18:00 Past Medical History Medical History CAD (coronary artery disease) Stent 10/26/23, [facility] Diabetes mellitus type 2, uncomplicated Per [facility] records Atrial tachycardia, paroxysmal Hx of migraines [place]enckebach Follows with [facility] cardio Hypertension GERD (gastroesophageal reflux disease) Congestive heart failure Atrial fibrillation Follows with [facility] cardio Nephrolithiasis History of hydronephrosis Glaucoma Bilateral tinnitus Neuropathy Feet, legs Hyperlipidemia H/O parathyroidectomy Exercise / Class Metabolic Activity III < 4 Walking/Shop/Light housework (uses a walker) Past Family History Family History Other Cancer Past Surgical History Surgical History Hx of appendectomy History of esophagogastroduodenoscopy (EGD) Hx of colonoscopy S/P cystoscopy with ureteral stent placement 09/2023, [facility] Hx of heart artery stent Stent x1, [facility] (10/26/23) Hx of cardiac cath Stent x1, [facility] (10/26/23) Hx of bilateral cataract extraction Hx of cholecystectomy History of back surgery lower back, 1984 Past Anesthesia History No Hx of Anesthesia Complications and No Family Hx of Anesthesia Complications History of PONV No Hx of PONV and No Hx of Motion Sickness Social History Smoking Status: Never smoker tobacco type: cigarettes Do You Dip or Chew Tobacco: No Smoking End Date: 50 years ago Hx Alcohol Use: No Hx Substance Use: No substance use type: does not use Physical Exam Vital Signs Last Vital Signs Temp 36.5 C 12/09/23 04:17 Pulse 94 H 12/09/23 07:10 Resp 18 12/09/23 07:10 BP 154/73 H 12/09/23 07:10 Pulse Ox 92 12/09/23 07:10 O2 Del Method Room Air 12/09/23 07:10 O2 Flow Rate 2 12/06/23 07:31 Constitutional no acute distress ENMT Mouth: no chipped teeth and no loose teeth Thyromental Distance: < 3.5 Finger Breadths Mallampati Class: III Neck normal visual inspection and trachea midline; neck extension not limited Respiratory normal respiratory effort; no respiratory distress Auscultation: lungs clear to auscultation bilaterally; no crackles, no rhonchi and no wheezes Cardiovascular Rate/Rhythm: + tachycardic; + abnormal rhythm Heart Sounds: no gallop, no murmur and no cardiac rub Musculoskeletal Head/Neck/Chest: full ROM of neck Neurologic moves all extremities and awake Psychiatric Orientation: alert confused as to place Testing Laboratory Results 12/09/23 05:54 12/09/23 05:54 Urine Color Other 12/03/23 12:12 Urine Appearance Cloudy (Clear) A 12/03/23 12:12 Urine pH 5.5 (4.5-7.5) 12/03/23 12:12 Ur Specific [place] 1.015 (1.000-1.030) 12/03/23 12:12 Urine Protein 2+ (Negative) H 12/03/23 12:12 Urine Glucose (UA) Negative (Negative) 12/03/23 12:12 Urine Ketones Negative (Negative) 12/03/23 12:12 Urine Nitrite Negative (Negative) 12/03/23 12:12 Ur Leukocyte Esterase 3+ (Negative) H 12/03/23 12:12 Urine RBC >20 /hpf (0-2) H 12/03/23 12:12 Urine WBC >50 /hpf (0-5) H 12/03/23 12:12 Ur Epithelial Cells 0-2 /hpf (0-2) 12/03/23 12:12 12/04/23 03:28 Aerobic Blood Culture - Preliminary Blood Tran albicans/dubliniensis Anaerobic Blood Culture - Final No growth in Anaerobic bottle after 5 days. 12/07/23 12:43 Aerobic Blood Culture - Preliminary Blood No growth in Aerobic bottle after 24 hours. Anaerobic Blood Culture - Preliminary No growth in Anaerobic bottle after 24 hours. 12/03/23 Unknown Urine Culture - Final Urine,Kidney Tran albicans/dubliniensis Electrocardiogram Date: 11/03/23 SR with PACs at 61bpm. Low voltage QRS. TWA, consider anterolateral ischemia. P rolonged QT. Chest X-Ray Date: 10/31/23 FINDINGS: No lines and tubes are seen. Calcified aortic knob is seen. Lungs are underinflated but clear. No evidence of pleural effusion or pneumothorax. IMPRESSION: No acute chest disease. Echocardiogram Date: 10/23/23 LVEF 40-45%. Severe HK mid and apical septum, inferior bolden. Moderate cLVH. Atrial tachycardia on onset of study converted to sinus rhythm during imaging. Moderate AR. Cardiac Catheterization Date: 10/26/23 1. Single vessel coronary artery [id number]% earlymid LAD (IFR 0.82). 2. Normal intracardiac filling pressure 3. Successful PCI of earlymid LAD with single drug-eluting stent (3.0 x 15 mm [place]; postdilated with 3.5 NC). Other Testing Head CT Date: 10/31/23 Indication listed: confusion IMPRESSION: Mild cerebral atrophy and periventricular white matter low density consistent with chronic small vessel disease and/or senescent changes. The brain is otherwise unremarkable. No acute large vessel infarct or intracranial hemorrhage is seen.
--- NOTE | 2023-12-09 08:18 | Post Operative Brief Note ---
Cardiology Brief Post Op Date of Surgery December 09, 2023 Pre & Post Diagnosis Operation Date: 12/09/23 07:45 Procedure Preprocedure diagnosis: Candidemia, evaluate for endocarditis Post procedure diagnosis: No valvular vegetation, moderate aortic regurgitation, mild mitral regurgitation Transesophageal echocardiogram procedure: Vital signs were monitored via the standard fashion. After informed consent was obtained a timeout was performed the patient was sedated with the assistance of the anesthesia service receiving a total of 50 mg of IV lidocaine and 100 mg of IV propofol. Focal aortic valve calcification was noted without evidence of vegetation. Moderate central aortic valve regurgitation was present. The pulmonic valve, mitral valve, and tricuspid valves were without vegetation. Mild mitral regurgitation is present. No left atrial appendage thrombus. Adzing And Boring Machine Helper Randy Hayes DO Central Processing Technician Stephanie Louis, SADIQ Estimated Blood Loss 0 Findings Consistent with Post-Op Diagnosis Anesthesia Type General Complications No complications were immediately apparent
[2023-12-09] MEDS: PROPOFOL IV EMULSION 10 MG/ML 20 ML VIAL IV ONE (08:44)
[2023-12-09] MEDS: LIDOCAINE 2% 2 ML VIAL/AMP(20MG/ML) INFIL ONE (08:44)
[2023-12-09] MEDS: BENZOCAINE/TETRACAIN/BUTAM 50 APPLN/5 GM CAN EXT ONE (08:45)
--- NOTE | 2023-12-09 10:31 | Urology Progress Note ---
Date of Service December 09, 2023 Assessment & Plan (1) Urinary tract infection: (2) Fungemia: (3) Ureteral stent present: Plan We will plan to continue caspofungin for now and await final culture results. If blood cultures are negative at 48 hours, we will plan on stent removal at the bedside today. This does not require anesthesia and is okay for her to have a diet from the urology perspective. Will plan to maintain Salazar catheter as she did not seem to be draining her bladder well. Greatly appreciate cardiology, medicine, ID involvement. Admission and Anticipated Discharge Date Admission Date: December 03, 2023 Subjective Feeling okay this morning. Denies any fevers or chills. Reports vague back pain, not localized to 1 side or the other. Denies any pain from her catheter. Catheter continues to drain well. AMY performed this morning. Brief op note reviewed. No valvular vegetations per report. Repeat blood cultures still negative, final results still pending. Broad-spectrum antibiotics stopped per ID. Remains on caspofungin. Physical Exam Physical Exam: Resting in bed, asleep on arrival but awakens appropriately. NAD. Breathing comfortably on room air, no audible wheezing. Results & Data Vital Signs (Past 12 Hours) Vital Signs Temp Pulse Pulse Pulse Resp BP Pulse Ox 12/09/23 10:19 98 H 17 128/75 92 12/09/23 10:02 36.7 C 101 H 17 125/75 94 12/09/23 09:24 104 H 17 120/70 91 12/09/23 09:08 36.7 C 100 H 18 119/72 90 12/09/23 08:30 103 H 16 113/54 L 96 12/09/23 08:15 102 H 16 134/86 98 12/09/23 08:00 82 12/09/23 08:00 12/09/23 07:10 94 H 18 154/73 H 92 12/09/23 04:17 36.5 C 69 16 149/65 H 93 12/08/23 23:48 36.5 C 103 H 15 169/76 H 92 12/08/23 23:33 O2 Del Method O2 Flow Rate 12/09/23 10:19 Room Air 12/09/23 10:02 Room Air 12/09/23 09:24 Room Air 12/09/23 09:08 Room Air 12/09/23 08:30 Room Air 12/09/23 08:15 Oxymask 5 12/09/23 08:00 12/09/23 08:00 Room Air 12/09/23 07:10 Room Air 12/09/23 04:17 Room Air 12/08/23 23:48 Room Air 12/08/23 23:33 Room Air PG Care Time/CCT Total # of Minutes Spent Total Time Spent with Patient: Total time spent is greater than 50% in coordination of care (as documented) at patient's floor/unit and/or counseling patient: Coding Level of Care Code 45377 SUB INP/OBS CARE 05/07MIN Diagnoses Urinary tract infection N30.01 Hematuria presence: with hematuria Urinary tract infection type: acute cystitis Fungemia B49 Ureteral stent present Z96.0 (1) Urinary tract infection Hematuria presence: with hematuria Urinary tract infection type: acute cystitis Qualified Code(s): N30.01 - Acute cystitis with hematuria
--- NOTE | 2023-12-09 11:43 | Anesthesiology Progress Note ---
Date of Service December 09, 2023 Anesthesia Post Procedure Vital Signs Vital Signs: Temp Pulse Pulse Pulse Resp BP Pulse Ox 12/09/23 11:19 88 18 127/76 94 12/09/23 10:56 103 H 18 137/72 96 12/09/23 10:19 98 H 17 128/75 92 12/09/23 10:02 36.7 C 101 H 17 125/75 94 12/09/23 09:24 104 H 17 120/70 91 12/09/23 09:08 36.7 C 100 H 18 119/72 90 12/09/23 08:30 103 H 16 113/54 L 96 12/09/23 08:15 102 H 16 134/86 98 12/09/23 08:00 82 12/09/23 08:00 12/09/23 07:10 94 H 18 154/73 H 92 12/09/23 04:17 36.5 C 69 16 149/65 H 93 12/08/23 23:48 36.5 C 103 H 15 169/76 H 92 12/08/23 23:33 12/08/23 21:45 105 H 12/08/23 19:10 36.6 C 107 H 18 171/75 H 94 12/08/23 15:44 36.6 C 100 H 18 118/69 95 12/08/23 14:28 107 H 12/08/23 11:52 36.6 C 109 H 18 127/61 92 O2 Del Method O2 Flow Rate 12/09/23 11:19 Room Air 12/09/23 10:56 Room Air 12/09/23 10:19 Room Air 12/09/23 10:02 Room Air 12/09/23 09:24 Room Air 12/09/23 09:08 Room Air 12/09/23 08:30 Room Air 12/09/23 08:15 Oxymask 5 12/09/23 08:00 12/09/23 08:00 Room Air 12/09/23 07:10 Room Air 12/09/23 04:17 Room Air 12/08/23 23:48 Room Air 12/08/23 23:33 Room Air 12/08/23 21:45 12/08/23 19:10 Room Air 12/08/23 15:44 Room Air 12/08/23 14:28 12/08/23 11:52 Room Air Pain Intensity Abdomen: Pain Intensity: 5 Transfer of Care Handoff Completed per policy Notes Mental Status: alert / awake / arousable and participated in evaluation Patient Amnestic to Procedure: Yes Nausea / Vomiting: adequately controlled Pain: adequately controlled Airway Patency, RR, SpO2: stable & adequate BP & HR: stable & adequate Hydration State: stable & adequate Anesthetic Complications: no major complications apparent
--- NOTE | 2023-12-09 14:04 | Hospitalist Progress Note ---
Date of Service December 09, 2023 Assessment & Plan (1) Atrial tachycardia: Plan: Sepsis--POA Complicated UTI Candidemia H/O recurrent UTIs Left ureteral calculus Suspected bladder mass--ruled out --CT ABD from 11/22/23:Left ureteral stent in place. Mild left hydronephrosis. No ureteral calculi. Urothelial thickening of the left collecting system and bladder wall thickening. The findings could be correlated with urinalysis to exclude an infectious process. A few small bilateral renal calculi. Colonic diverticulosis. No evidence for acute diverticulitis. No bowel obstruction. --S/P Cystoscopy, left ureteroscopy, left ureteral stent exchange by Dr. Tiwari on 12/03/2023: Passed left ureteral stone. No bladder mass identifiable on cystoscopy. Previous urine cultures grew Pseudomonas, Klebsiella --Transthoracic ECHO 12/06: No regional wall motion abnormality. EF 60 to 65%. Right ventricle is normal in size and function. Aortic valve is trileaflet. Attic valve is moderately calcified. At least moderate aortic valve regurgitati on is present. --Urine culture: Tran> 100,000 colonies --Blood culture: + Tran albicans --Repeat blood cultures from 12/06 negative to date ID recs noted Discussed with ID via TT regarding if there's need for fundoscopy. ID recommends to hold off for now considering low risk right now unless repeat BCx turn positive Continue caspofungin AMY today 12/08: No definite vegetation was observed. There is focal nonmobile calcification on noncoronary cusp of aortic valve, mod AR, mild valve leaflets are mildly calcified, mild prolapse of posterior mitral valve leaflet, mild MR, no definite MV vegetation. EF 60-65% Acute metabolic encephalopathy Likely secondary to UTI CT head:No significant change compared to the prior study. No acute intracranial abnormality. 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 50 mg QAM and 25 mg QPM at home Not on anticoagulation due to fall risk Monitor electrolytes and replace as needed Metoprolol dose changed to 37.5 mg twice daily Dysphagia Possible aspiration Chest x-ray showed no signs of pneumonia Aspiration precautions Speech therapy consulted Tolerating minced and moist diet History of CAD status post drug-eluting stent Continue aspirin, Plavix, metoprolol, statin Chronic systolic and diastolic CHF Continue metoprolol Losartan Monitor volume status Considering she was NPO most of the day, will hold resuming diuretic today Reassess in AM Hypertension Blood pressure better Continue home losartan, Resume Lasix as able Monitor BP closely Hyperlipidemia Continue Crestor Prediabetes Last HbA1c 6.2 Diabetic diet CKD III Renal function at baseline Monitor DVT Px: Heparin SQ CODE STATUS Full code I spent a total of 50 minutes coordinating, documenting and providing care for this patient excluding time spent in performance of separately billed services Admission and Anticipated Discharge Date Admission Date: December 03, 2023 Subjective Patient seen and examined She is AOx3 Denied any complaints on ROS However, has flat affect. Reports feeling depressed due to being in the hospital. Denied SI/HI Per nursing staff, she is usually not happy being in the hospital. Had AMY this AM Physical Exam Constitutional: + well hydrated; no acute distress Eyes: PERRL, conjunctivae normal, anicteric sclerae ENMT: external ear and nose normal, oropharynx normal Respiratory: normal respiratory effort, lungs clear to auscultation Cardiovascular: Rate/Rhythm: regular rate and regular rhythm Gastrointestinal (Abdomen): normal bowel sounds, soft, nontender, no hepatosplenomegaly Musculoskeletal: No pedal edema Neurologic: PERRL, EOMI, accommodation nl, no face palsy, no dysarthria Psychiatric: AOx3. Flat affect Results & Data Results & Data Vital Signs (Past 12 Hours) Vital Signs Temp Pulse Pulse Pulse Resp BP Pulse Ox 12/09/23 12:24 99 H 18 125/65 93 12/09/23 11:53 97 H 18 126/73 93 12/09/23 11:19 88 18 127/76 94 12/09/23 10:56 103 H 18 137/72 96 12/09/23 10:19 98 H 17 128/75 92 12/09/23 10:02 36.7 C 101 H 17 125/75 94 12/09/23 09:24 104 H 17 120/70 91 12/09/23 09:08 36.7 C 100 H 18 119/72 90 12/09/23 08:30 103 H 16 113/54 L 96 12/09/23 08:15 102 H 16 134/86 98 12/09/23 08:00 82 12/09/23 08:00 12/09/23 07:10 94 H 18 154/73 H 92 12/09/23 04:17 36.5 C 69 16 149/65 H 93 O2 Del Method O2 Flow Rate 12/09/23 12:24 Room Air 12/09/23 11:53 Room Air 12/09/23 11:19 Room Air 12/09/23 10:56 Room Air 12/09/23 10:19 Room Air 12/09/23 10:02 Room Air 12/09/23 09:24 Room Air 12/09/23 09:08 Room Air 12/09/23 08:30 Room Air 12/09/23 08:15 Oxymask 5 12/09/23 08:00 12/09/23 08:00 Room Air 12/09/23 07:10 Room Air 12/09/23 04:17 Room Air Laboratory Results Abnormal lab results 12/09/23 Range/Units 05:54 RBC 3.37 L (4.20-5.40) M/uL Hgb 9.5 L (12.0-16.0) g/dl Hct 29.6 L (37.0-47.0) % Glucose 138 H (70-99(Fasting)) mg/dl Calcium 8.3 L (8.6-10.3) mg/dl
[2023-12-09] MEDS: CIPROFLOXACIN 500 MG TAB PO STA (15:22)
--- NOTE | 2023-12-09 15:56 | Communication Note ---
Date of Service: December 09, 2023 Blood cultures no growth x 48 hours Patient received a dose of PO Ciprofloxacin 500 mg 1 tablet x 1 prior to planned stent removal After Salazar catheter was removed, then her tethered ureteral stent was removed at bedside Patient tolerated well, no complications noted RN will replace Salazar catheter will follow
[2023-12-10 07:03] LABS: Hematocrit (blood only) 30.9 % (37.0-47.0); Hemoglobin 9.7 g/dl (12.0-16.0); Mean Corpuscular Hemoglobin 27.9 pg (25.0-34.0); Mean Corpuscular Hgb Conc 31.4 g/dL (32.0-36.0); Mean Corpuscular Volume 88.8 fL (80.0-100.0); Mean Platelet Volume 9.5 fL (9.4-12.4); Platelet Count 357 K/uL (130-400); RDW Standard Deviation 45.4 fL (36.4-46.3); Red Blood Count 3.48 M/uL (4.20-5.40); White Blood Count 9.95 K/ul (4.8-10.8)
[2023-12-10 07:16] LABS: Albumin Globulin Ratio 0.9 (0.9-2); Albumin Level 2.6 gm/dl (3.4-5.0); BUN Creatinine Ratio 19.1 (10-20); Bilirubin,Total 0.4 mg/dl (0.2-1.0); Calcium 8.1 mg/dl (8.6-10.3); Creatinine Clr Calc Pharmacy 54.1 ml/min; Est GFR (African American) 93.8 ml/min; Est GFR (Non-African American) 80.9 ml/min; Globulin 2.9 gm/dl (2.5-4.0); Total Protein 5.5 gm/dl (6.0-8.3)
--- NOTE | 2023-12-10 09:02 | Urology Progress Note ---
<Statement entered by Jimmy Tiwari MD - 12/10/23 13:33> I seen and discussed Ms. Rivera's case with MATTHEW Pulido and agree with the above documentation. She seems to be recovering appropriately. Blood cultures remain negative. She did well with stent removal yesterday. No fevers overnight. Will maintain catheter for now. Plan to keep this for approximately 1 week. She will remain on antifungals. Unclear etiology of pain in her hands. Nontender to palpation on my exam. Start with oral analgesics. Continue to monitor and will plan to discuss with medicine. Urology will follow along. -Jimmy Tiwari MD. Date of Service December 10, 2023 Assessment & Plan (1) Fungemia: (2) Urinary tract infection: (3) Acute UTI: Plan 83-year-old female s/p left ureteroscopy on 12/03/2023. - Patient afebrile, mildly tachycardic, normotensive this morning - Labs today show no leukocytosis, hemoglobin 9.7, glucose 116 - Repeat blood cultures were negative and stent was removed yesterday at bedside with antibiotics given prior. - Continues on Caspofungin - AMY yesterday showed no valvular vegetation - Salazar intact and draining appropriately - urine is clear yellow. Salazar changed yesterday after stent removal. - Salazar to remain intact upon discharge we will schedule appointment with T[facility] approximately a week. - We will plan to maintain Salazar catheter for maximum drainage - Continue supportive care and other medical management per primary and other consult teams. - Urology will follow Plan of care reviewed with Dr. Tiwari Admission and Anticipated Discharge Date Admission Date: December 03, 2023 Subjective Patient assessed at the bedside this morning Patient sitting and resting in bed comfortably Denies fevers, chills, N/V Salazar catheter draining clear yellow urine Complaining of bilateral hand pain-this is new-states she is unable to feed herself due to this. Nursing at bedside during visit. Labs reviewed Creatinine 0.68 Glucose 116 Hemoglobin 9.7 Repeat blood culture on 12/07/2023 was negative Review of Systems Constitutional: as per Subjective / HPI Genitourinary: as per Subjective / HPI Physical Exam Constitutional: + thin; no acute distress Respiratory: normal respiratory effort and able to speak in complete sentences Musculoskeletal: Bilateral hand strength checked, 5 out of 5 on the right, 4 out of 5 on the left Both hands cool to palpitation, protective sleeves noted Neurologic: Cranial Nerves: normal facial strength Psychiatric: Orientation: alert and oriented x 3 Results & Data Vital Signs (Past 12 Hours) Vital Signs Temp Pulse Pulse Pulse Resp BP Pulse Ox 12/10/23 08:08 36.7 C 97 H 19 134/68 97 12/10/23 03:16 36.6 C 88 18 144/62 H 94 12/09/23 23:19 36.9 C 96 H 18 138/81 92 12/09/23 22:30 110 H O2 Del Method 12/10/23 08:08 Room Air 12/10/23 03:16 Room Air 12/09/23 23:19 Room Air 12/09/23 22:30 PG Care Time/CCT Total # of Minutes Spent Total Time Spent with Patient: Total time spent is greater than 50% in coordination of care (as documented) at patient's floor/unit and/or counseling patient: Coding Level of Care Code 23013 SUB INP/OBS CARE 235MIN Diagnoses Fungemia B49 Urinary tract infection N30.01 Hematuria presence: with hematuria Urinary tract infection type: acute cystitis Acute UTI N39.0 (2) Urinary tract infection Hematuria presence: with hematuria Urinary tract infection type: acute cystitis Qualified Code(s): N30.01 - Acute cystitis with hematuria
--- NOTE | 2023-12-10 10:06 | Hospitalist Progress Note ---
Date of Service December 10, 2023 Assessment & Plan (1) Fungemia: (2) Urinary tract infection: Plan Sepsis--POA Complicated UTI Candidemia H/O recurrent UTIs Left ureteral calculus Suspected bladder mass--ruled out --CT ABD from 11/22/23:Left ureteral stent in place. Mild left hydronephrosis. No ureteral calculi. Urothelial thickening of the left collecting system and bladder wall thickening. The findings could be correlated with urinalysis to exclude an infectious process. A few small bilateral renal calculi. Colonic diverticulosis. No evidence for acute diverticulitis. No bowel obstruction. --S/P Cystoscopy, left ureteroscopy, left ureteral stent exchange by Dr. Tiwari on 12/03/2023: Passed left ureteral stone. No bladder mass identifiable on cystoscopy. Previous urine cultures grew Pseudomonas, Klebsiella --Transthoracic ECHO 12/06: No regional wall motion abnormality. EF 60 to 65%. Right ventricle is normal in size and function. Aortic valve is trileaflet. Attic valve is moderately calcified. At least moderate aortic valve regurgitat ion is present. --Urine culture: Tran> 100,000 colonies --Blood culture: + Tran albicans --Repeat blood cultures from 12/06 negative to date ID recs noted On 12/09/23, I discussed with ID via TT regarding if there's need for fundoscopy. ID recommends to hold off for now considering low risk right now unless repeat BCx turn positive AMY today 12/08: No definite vegetation was observed. There is focal nonmobile calcification on noncoronary cusp of aortic valve, mod AR, mild valve leaflets are mildly calcified, mild prolapse of posterior mitral valve leaflet, mild MR, no definite MV vegetation. EF 60-65% Urology removed stent yesterday Discussed with Uro today. They recommend discharging with lozada and outpatient f/u for TOV in about a week Currently on IV caspofungin Discussed with ID Dr Dumont who recommends doing 2 weeks of fluconazole Antifungal changed to po fluconazole Acute metabolic encephalopathy Likely secondary to UTI CT head:No significant change compared to the prior study. No acute intracranial abnormality. 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 50 mg QAM and 25 mg QPM at home Not on anticoagulation due to fall risk Monitor electrolytes and replace as needed Metoprolol dose changed to 37.5 mg twice daily Dysphagia Possible aspiration Chest x-ray showed no signs of pneumonia Aspiration precautions Speech therapy consulted Tolerating minced and moist diet History of CAD status post drug-eluting stent Continue aspirin, Plavix, metoprolol, statin Chronic systolic and diastolic CHF Continue metoprolol Losartan Resume home lasix Monitor volume status Hypertension Blood pressure better Continue home losartan, Monitor BP closely Hyperlipidemia Continue Crestor Prediabetes Last HbA1c 6.2 Diabetic diet CKD III Renal function at baseline Monitor DVT Px: Heparin SQ CODE STATUS Full code RN to have IV team reassess IV which may be contributing to pain in hand I called daughter and updated her PT/OT recommended rehab. CM to work on dispo with family I spent a total of 55 minutes coordinating, documenting and providing care for this patient excluding time spent in performance of separately billed services Admission and Anticipated Discharge Date Admission Date: December 03, 2023 Subjective Patient seen and examined Reports pain in both hands this AM Denied numbness No fever, chills, nausea, vomiting, abd pain, diarrhea, chest pain, cough, SOB Urology removed stent yesterday and lozada was changed Physical Exam Constitutional: + well hydrated; no acute distress Eyes: PERRL, conjunctivae normal, anicteric sclerae ENMT: external ear and nose normal, oropharynx normal Respiratory: normal respiratory effort, lungs clear to auscultation Cardiovascular: Rate/Rhythm: regular rate and regular rhythm Gastrointestinal (Abdomen): normal bowel sounds, soft, nontender, no hepatosplenomegaly Musculoskeletal: Mild edema in left hand. Normal ROM. Neurologic: PERRL, EOMI, accommodation nl, no face palsy, no dysarthria Psychiatric: A+Ox3, euthymic affect Genitourinary: Lozada in situ Results & Data Results & Data Vital Signs (Past 12 Hours) Vital Signs Temp Pulse Pulse Pulse Resp BP Pulse Ox 12/10/23 08:08 36.7 C 97 H 19 134/68 97 12/10/23 03:16 36.6 C 88 18 144/62 H 94 12/09/23 23:19 36.9 C 96 H 18 138/81 92 12/09/23 22:30 110 H O2 Del Method 12/10/23 08:08 Room Air 12/10/23 03:16 Room Air 12/09/23 23:19 Room Air 12/09/23 22:30 Laboratory Results Abnormal lab results 12/10/23 Range/Units 05:47 RBC 3.48 L (4.20-5.40) M/uL Hgb 9.7 L (12.0-16.0) g/dl Hct 30.9 L (37.0-47.0) % MCHC 31.4 L (32.0-36.0) g/dL Glucose 116 H (70-99(Fasting)) mg/dl Calcium 8.1 L (8.6-10.3) mg/dl Alkaline Phosphatase 134 H (34-104) U/L Total Protein 5.5 L (6.0-8.3) gm/dl Albumin 2.6 L (3.4-5.0) gm/dl (2) Urinary tract infection Hematuria presence: with hematuria Urinary tract infection type: acute cystitis Qualified Code(s): N30.01 - Acute cystitis with hematuria
[2023-12-10] MEDS: FLUCONAZOLE 100 MG TAB PO ONE (11:18)
[2023-12-10] MEDS: FUROSEMIDE 40 MG TAB PO SCH (11:18)
--- NOTE | 2023-12-10 16:42 | Cardiology Progress Note ---
Date of Service December 10, 2023 Assessment & Plan (1) Fungemia: (2) Urinary tract infection: (3) Status post insertion of drug-eluting stent into left anterior descending (LAD) artery: (4) Atrial tachycardia: Plan * Repeat blood culture drawn on 12/06 without growth thus far * AMY 12/09/23, without vegetation * LV wall motion and LVEF however have normalized since LAD stent placed in October,. * Continue ASA and clopidogrel, rosuvastatin * Continue subcutaneous heparin for DVT prophylaxis pending further assessment. Admission and Anticipated Discharge Date Admission Date: December 03, 2023 Subjective Pt seen in follow up. No acute complaints. Atrial tachycardia versus SR with PACs noted with rate of 95-105 bpm. Review of Systems Review of Systems: Unobtainable due to cognitive status Physical Exam Physical Exam: General: No acute distress, cognitive impairment noted Eyes: conjunctiva are pink and non-injected, sclera clear Neck: normal jugular venous pulse, no hepatojugular reflux Chest: normal shape and normal respiratory effort Lungs: clear to auscultation and percussion Cardiac Exam: - regular heart sounds, no murmurs, rubs, or gallops, no jugular venous distention Abdomen: abdomen soft, non-tender, no abnormal masses and no hepatosplenomegaly Musculoskeletal: no gait disturbance, no weakness Extremities: no edema and no cyanosis Neuro:awake, conversant, follows commands, no focal motor deficits Results & Data Vital Signs (Past 12 Hours) Vital Signs Temp Pulse Resp BP Pulse Ox O2 Del Method 12/10/23 15:06 36.8 C 97 H 16 128/85 94 Room Air 12/10/23 08:08 36.7 C 97 H 19 134/68 97 Room Air (2) Urinary tract infection Hematuria presence: with hematuria Urinary tract infection type: acute cystitis Qualified Code(s): N30.01 - Acute cystitis with hematuria
[2023-12-11 06:15] LABS: Hematocrit (blood only) 28.9 % (37.0-47.0); Hemoglobin 9.5 g/dl (12.0-16.0); Mean Corpuscular Hemoglobin 28.9 pg (25.0-34.0); Mean Corpuscular Hgb Conc 32.9 g/dL (32.0-36.0); Mean Corpuscular Volume 87.8 fL (80.0-100.0); Mean Platelet Volume 9.6 fL (9.4-12.4); Platelet Count 386 K/uL (130-400); RDW Coefficient of Variation 14.2 % (11.5-14.5); RDW Standard Deviation 44.8 fL (36.4-46.3); Red Blood Count 3.29 M/uL (4.20-5.40); White Blood Count 10.15 K/ul (4.8-10.8)
[2023-12-11 06:40] LABS: Albumin Globulin Ratio 0.9 (0.9-2); Albumin Level 2.6 gm/dl (3.4-5.0); BUN Creatinine Ratio 19.4 (10-20); Bilirubin,Total 0.4 mg/dl (0.2-1.0); Calcium 7.9 mg/dl (8.6-10.3); Creatinine Clr Calc Pharmacy 54.9 ml/min; Est GFR (African American) 94.2 ml/min; Est GFR (Non-African American) 81.3 ml/min; Globulin 2.9 gm/dl (2.5-4.0); Potassium 3.8 mmol/L (3.5-5.1); Total Protein 5.5 gm/dl (6.0-8.3)
[2023-12-11] MEDS: FLUCONAZOLE 100 MG TAB PO SCH (07:56)
--- NOTE | 2023-12-11 08:15 | Urology Progress Note ---
Date of Service December 11, 2023 Assessment & Plan (1) Fungemia: (2) Acute UTI: (3) Urinary tract infection: Plan 83-year-old female s/p left ureteroscopy on 12/03/2023. - Patient remains afebrile - Labs today showcreatinine 0.67, WBC 10.15, hemoglobin 9.5 - Repeat blood cultures with no growth to date - Tethered left ureteral stent was removed at bedside on 12/08 with antibiotics given prior - Now on fluconazole for outpatient course - AMY 12/08 showed no valvular vegetation - Salazar exchanged on 12/08 after stent removal - Maintain Salazar for maximum drainage - Will plan for outpatient voiding trial with our service in approximately 1 week -Greatly appreciate medicine, ID, cardiology input. Admission and Anticipated Discharge Date Admission Date: December 03, 2023 Supervising Physician Co-Signing Physician Notes Blood cultures remain negative. She is doing well on fluconazole and will continue this medication upon discharge. Will maintain her Salazar catheter until outpatient follow-up. Anticipate this will be in approximately 1 week. Ureteral stent was removed. -Jimmy Tiwari MD. Subjective Patient seen and examined at bedside this morning. She is awake and sitting up in bed eating breakfast. No acute issues overnight. She denies flank or suprapubic discomfort. Denies nausea, vomiting, fever or chills. She reports that bilateral hand pain is improved today. Review of Systems Constitutional: as per Subjective / HPI Genitourinary: as per Subjective / HPI Physical Exam Constitutional: no acute distress Respiratory: no respiratory distress and no labored breathing Musculoskeletal: Head/Neck/Chest: normocephalic Neurologic: moves all extremities and awake Psychiatric: Orientation: alert and oriented to person Genitourinary: Salazar patent and draining clear yellow urine Results & Data Vital Signs (Past 12 Hours) Vital Signs Temp Pulse Pulse Resp BP Pulse Ox O2 Del Method 12/11/23 02:59 37.0 C 102 H 19 148/74 H 92 Room Air 12/10/23 22:57 36.6 C 101 H 14 127/72 93 Room Air 12/10/23 21:35 104 H PG Care Time/CCT Total # of Minutes Spent Total Time Spent with Patient: Total time spent is greater than 50% in coordination of care (as documented) at patient's floor/unit and/or counseling patient: Coding Level of Care Code 55115 SUB INP/OBS CARE 05/07MIN Diagnoses Fungemia B49 Acute UTI N39.0 Urinary tract infection N30.01 Hematuria presence: with hematuria Urinary tract infection type: acute cystitis (3) Urinary tract infection Hematuria presence: with hematuria Urinary tract infection type: acute cystitis Qualified Code(s): N30.01 - Acute cystitis with hematuria
[2023-12-11 08:23] VITALS: PULSE 104; RESP 20; TEMP 98.4; O2SAT 93
--- NOTE | 2023-12-11 09:59 | Discharge Summary ---
Date of Service December 11, 2023 Admission HPI Per Admitting Provider Patient is an 83-year-old female with past medical history of coronary artery disease S/P stent, hypertension, hyperlipidemia, chronic systolic and diastolic heart failure, CKD stage III, atrial tachycardia, paroxysmal atrial fibrillation, postsurgical hypoparathyroidism, prediabetes, peripheral artery disease, moderate aortic regurgitation, first-degree AV block, GERD, hearing impairment, glaucoma and other medical problems was consulted for postop medical management. Patient underwent cystoscopy with left ureteroscopy and left ureteral stent exchange by Dr. Tiwari today. Postoperatively patient was found to be tachycardic. Patient has missed her home medication metoprolol this morning due to procedure. Patient complains of lower abdominal soreness after the procedure. No other complaints currently. Denies any history of chest pain, dyspnea, palpitations, dizziness, cough, fever, chills, headache, change in vision, nausea, vomiting, diarrhea, hematuria. Patient has been on ciprofloxacin for recurrent UTIs as previously prescribed on last admission. Admission Exam Per Admitting Provider General Appearance:Moderately built and nourished, no apparent distress, chronic ill-appearing, elderly Head: normocephalic, Atraumatic Eyes: normal inspection, EOMI Neck: supple, Trachea midline Respiratory/Chest: Decreased breath sounds, CTA, No accessory muscle use Cardiovascular: S1, S2, No murmur, tachycardia Abdomen/GI:Soft, Non tender, Bowel sounds present Extremities/Musculoskeletal:normal inspection, no edema Neurologic/Psych:AAOX3, grossly no focal neurological deficits Skin: normal color, warm Principal Diagnosis Candidemia Sepsis Complicated urinary tract infection Left ureteral calculus Atrial tachycardia Discharge Exam Constitutional + well hydrated; no acute distress Eyes PERRL, conjunctivae normal, anicteric sclerae ENMT external ear and nose normal, oropharynx normal Respiratory normal respiratory effort, lungs clear to auscultation Cardiovascular Rate/Rhythm: regular rate and regular rhythm Gastrointestinal (Abdomen) normal bowel sounds, soft, nontender, no hepatosplenomegaly Musculoskeletal No pedal edema Neurologic PERRL, EOMI, accommodation nl, no face palsy, no dysarthria Psychiatric A+Ox3, euthymic affect Genitourinary Lozada in situ Discharge Data Allergies Allergy/AdvReac Type Severity Reaction Status Date / Time No Known Allergies Allergy Verified 12/03/23 08:10 Consultations 12/03/23 13:12 Consult Hospitalist Routine 12/07/23 07:00 Consult Infectious Diseases Routine 12/07/23 12:33 Consult Cardiology Routine 12/08/23 12:16 Consult Anesthesiology Routine Procedures Performed Operation Date: 12/09/23 07:45 Actual Procedures p Echo Transesophageal - DO tania Vance Echo Color Flow - DO tania Vance Doppler Echo Limited/Follow Up - Randy Hayes DO Ordered Studies 12/03/23 09:20 FL KUB Routine 12/07/23 14:18 CT head/brain wo con Urgent Hospital Course (1) Fungemia: (2) Urinary tract infection: Plan Sepsis--POA Complicated UTI Candidemia H/O recurrent UTIs Left ureteral calculus Suspected bladder mass--ruled out --CT ABD from 11/22/23:Left ureteral stent in place. Mild left hydronephrosis. No ureteral calculi. Urothelial thickening of the left collecting system and bladder wall thickening. The findings could be correlated with urinalysis to exclude an infectious process. A few small bilateral renal calculi. Colonic diverticulosis. No evidence for acute diverticulitis. No bowel obstruction. --S/P Cystoscopy, left ureteroscopy, left ureteral stent exchange by Dr. Tiwari on 12/03/2023: Passed left ureteral stone. No bladder mass identifiable on cystoscopy. Previous urine cultures grew Pseudomonas, Klebsiella --Transthoracic ECHO 12/06: No regional wall motion abnormality. EF 60 to 65%. Right ventricle is normal in size and function. Aortic valve is trileaflet. Attic valve is moderately calcified. At least moderate aortic valve regurgitation is present. --Urine culture: Tran> 100,000 colonies --Blood culture: + Tran albicans --Repeat blood cultures from 12/06 negative to date AMY 12/08: No definite vegetation was observed. There is focal nonmobile calcification on noncoronary cusp of aortic valve, mod AR, mild valve leaflets are mildly calcified, mild prolapse of posterior mitral valve leaflet, mild MR, no definite MV vegetation. EF 60-65% Urology removed tethered stent on 12/09/23 Urology recommended discharging with lozada and outpatient f/u for TOV in about a week Was initially on IV caspofungin and later changed to po fluconazole after culture results per Infectious disease recommendations. Patient discharged on po fluconazole till 12/23/23 to complete treatment Acute metabolic encephalopathy Likely secondary to UTI CT head:No significant change compared to the prior study. No acute intracranial abnormality. 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 50 mg QAM and 25 mg QPM at home Not on anticoagulation due to fall risk Metoprolol dose changed to 37.5 mg twice daily per Senior Cytogenetic Technologist recommendations Dysphagia Possible aspiration Chest x-ray showed no signs of pneumonia Aspiration precautions Tolerating minced and moist diet History of CAD status post drug-eluting stent Continue aspirin, Plavix, metoprolol, statin Hypertension Chronic systolic and diastolic CHF Continue metoprolol Losartan, lasix Hyperlipidemia Continue Crestor Prediabetes Last HbA1c 6.2 Diabetic diet CKD III Renal function at baseline PT/OT evaluated and recommended rehab. However, patient and daughter declined Per daughter, she has 03/11 care at home Total Time Total Time Spent Total Time Spent (In Minutes): 35 Total Time Includes: Examination of the Patient, Discharge Planning, Medication Reconciliation and Other (I called daughter and updated her on plans) Discharge Plan Discharge Items Patient Disposition: Home - Home Health Services Reason For Visit: Left Ureteral Calculus Hydronephrosis with Renal a Discharge Diagnosis: Candidemia Sepsis Complicated urinary tract infection Left ureteral calculus Atrial tachycardia Activity: Resume your previous activity Non-emergency contact: Primary Care Provider and Urologist Call non-emergency contact if: you have any medication questions and your symptoms worsen Follow-up/Referrals: Jimmy Tiwari MD [Physician] - (Call for follow up within a week) Hernan Fernández MD [Primary Care Provider] - (Date & Time 12/17/2023 2:20 PM Provider Shaun King MD Department Family [facility] ) Diet: Heart Healthy and Low Sodium (2gm) Addtl Attending Provider Instructions: Mrs Rivera You were admitted and managed for the above listed diagnoses. You had cystoscopy and left ureteral stent which was removed while in the hospital. You are being discharged on antifungal medicine called fluconazole until 12/23/23 to complete treatment. You are being discharged with lozada catheter until you follow up with Urology within a week. Your metoprolol succinate was changed to 37.5mg twice a day per the Senior Cytogenetic Technologist. Please ensure follow up with your Primary Doctor. It was a pleasure taking care of you. Pending Studies at Discharge: No Stand-Alone Forms: My [facility], Smoking Cessation Medications and DC Order Prescriptions: New fluconazole [Diflucan] 100 mg Tablet 400 mg PO QAM 12 Days Qty: 48 0RF metoprolol succinate 25 mg Tablet Extended Release 24 Hr 37.5 mg PO BID 30 Days Qty: 90 0RF Continued latanoprost [Xalatan] 0.005 % drops 1 drp OPB AMHS dorzolamide-timolol [Cosopt] 22.3-6.8 mg/mL drops 1 drp OPB HS duloxetine [Cymbalta] 60 mg capsule,delayed release(DR/EC) 60 mg PO QAM multivitamin Tablet 1 tab PO QAM omeprazole 20 mg Tablet,Delayed Release (Dr/Ec) 20 mg PO BID aspirin [Ed Low Dose Aspirin] 81 mg tablet,delayed release (DR/EC) 81 mg PO QAM calcitriol [Rocaltrol] 0.5 mcg Capsule 1 mcg PO QAM rosuvastatin 10 mg Tablet 10 mg PO HS tamsulosin [Flomax] 0.4 mg capsule 0.4 mg PO QAM clopidogrel [Plavix] 75 mg tablet 75 mg PO QAM phenazopyridine [Pyridium] 100 mg tablet 100 mg PO TID PRN (Reason: pain) losartan [Cozaar] 25 mg tablet 12.5 mg PO DAILY furosemide 40 mg Tablet 40 mg PO QAM Qty: 30 0RF magnesium chloride [Mag 64] 64 mg Tablet,Delayed Release (Dr/Ec) 64 mg PO BID Qty: 60 1RF potassium chloride 20 mEq Tablet,Er Particles/Crystals 20 meq PO QAM Qty: 30 0RF Vyzulta 0.024 % Drops 1 drp OPB HS Discontinued metoprolol succinate 25 mg tablet extended release 24 hr See Rx Instructions .ROUTE .COMPLEX Rx Instructions: Takes 50 mg in the morning, 25 mg in the evening ciprofloxacin HCl [Cipro] 250 mg tablet 250 mg PO BID Qty: 30 0RF Discharge Orders: Discharge Order (Routine); Ordered 12/11/23 Ordered By: Keira Griffith/Other Patient Handouts: UTIs, Sepsis, Urinary Catheter Bag Empty Clean, Preventing Falls in the Home, Lozada Catheter Female Ch, Falls Prevent Adjust Living Space, Preventing Falls Preparation, Prevent Falls Make Health Priority, Heart Block 1st Degree Admission Data Admit Date/Time: 12/03/23 11:27 Attending Provider: Keira Lipscomb I. Admit Provider: Jimmy Tiwari Primary Care Provider: Hernan Fernández Other Providers: My Navarro; Munira Howell I.; Gino Viera; Jayson Shah; Sabrina Zamarripa; Toya Cochran; Kimberli Mandujano; Brian Torres; Hernan Abernathy; Shayne Hale; Geoffrey Cho; Mandy Farmer; Aníbal Verdugo; Donnie Angelo; Mahnaz Schulz; Fani Davis; Ebonie Benson; Cherri Pichardo; Geetha Gallegos; Keira Lipscomb I.; Wilfrido Collins; Ines Land; Stewart Mendoza; Ricky Rao.; Xavier,Lázaro; Fabiano Gonzales; Honey Jack; Dary Her; Millie Blanco; Heladio Elise; Hood Benavides; [facility]; Sadi Lorenzo; Curtis Shah; Hernán Mandujano I.; Kerwin Raya II; Joya Obrien; Chun Elise; Feng Farias; Salas Crockett; Megan Villarreal; Randy Hayes; Jj Pacheco; De Berger; Grover Renae; Chun Mullins; Lupis Fan; Deloris Cutler; Ale Clarke; Megan Khan; Dash Yu; Manpreet Scott; Starla Guthrie; Shantell Rabago; Lori Barksdale; Fahad Ho; Geoff Tinsley; Jessie Hammond; Brian Alexander Other Interventions: Discharge Summary Assessment (RN) Last Done: 12/11/23 08:00
[2023-12-11 10:59] VITALS: BP 146/78
== END 2023-12-11 12:01 | disposition home health service (06) | DRG 853 ==
LOC: ASU 07:55 → SUATTDRO 11:27 → 3N 11:27 → 1E 12-04 03:45 → 2S 12-04 22:41